=== PATIENT | female | born 1935 | race Caucasian/White ===

== ENCOUNTER 2020-01-04 13:24 | Outpatient (REF) | payer MEDICARE, SELFPAY ==
[2020-01-04 14:05] LABS: MANUAL DIFF FLAG NO
[2020-01-04 14:08] LABS: Basophils Absolute Auto 0.1 X10*3/uL (0.0-0.2); Basophils Percent Auto 0.8 % (0-2); Eosinophils Absolute Auto 0.2 X10*3/uL (0.0-0.4); Eosinophils Percent Auto 2.1 % (0-4); Hematocrit 42.9 % (37-47); Hemoglobin 14.3 g/dl (12.0-16.0); Imm Gran Abs Auto 0.02 X10*3/uL (0.00-0.03); Imm Gran Pct Auto 0.3 % (0.0-0.4); Lymphocytes Absolute Auto 3.1 X10*3/uL (1.2-4.9); Lymphocytes Percent Auto 40.7 % (20-40); Mean Corpuscular HGB Conc 33.3 g/dl (31.0-35.0); Mean Corpuscular Hemoglobin 30.2 pg (27.0-33.0); Mean Corpuscular Volume 90.5 fL (80-98); Mean Platelet Volume 9.6 fL (9.4-12.3); Monocytes Absolute Auto 0.6 X10*3/uL (0.1-1.2); Monocytes Percent Auto 7.5 % (2-11); Neutrophils Absolute Auto 3.8 X10*3/uL (2.0-8.3); Neutrophils Percent Auto 48.6 % (45-73); Platelet Count 264 X10*3/uL (160-400); Red Blood Count 4.74 X10*6/uL (4.20-5.50); Red Cell Distribution Width 12.1 % (11.0-16.0); White Blood Count 7.7 X10*3/uL (4.8-10.8)
[2020-01-04 14:39] LABS: Alanine Aminotransferase 13 U/L (0-31); Albumin Level 4.2 g/dL (3.5-5.0); Alkaline Phosphatase 76 U/L (39-117); Anion Gap 11 (12-20); Aspartate Amino Transferase 20 U/L (5-31); Bilirubin Total 0.6 mg/dL (0.0-1.0); Blood Urea Nitrogen 23 mg/dL (9-16); Calcium 9.5 mg/dL (8.4-10.2); Carbon Dioxide 31 mmol/L (22-29); Chloride 102 mmol/L (96-108); Cholesterol 192 mg/dL; Estimated Glomerular Filt Rate > 60; Glucose Fasting 105 mg/dL (60-99); HDL Cholesterol 57 mg/dL; LDL Cholesterol Calculated 99 mg/dl; Potassium 3.6 mmol/l (3.3-5.1); Sodium 140 mmol/L (135-145); Total Protein 6.9 g/dL (6.5-8.0); Triglycerides 183 mg/dL
[2020-01-04 15:03] LABS: Thyroid Stimulating Hormone 0.68 mIU/mL (0.32-4.0); Vitamin D 25-OH Total 21.5 ng/mL (>30)
[2020-01-04 15:11] LABS: Folate 6.3 ng/mL (> or = 4.0); Vitamin B12 357 pg/mL (200-900)
[2020-01-04 15:24] LABS: Estimated Average Glucose 120 mg/dL; Hemoglobin A1c % 5.8 %
[2020-01-04 15:48] LABS: T4 Thyroxine 7.6 ug/dL (4.5-12.0)
== END 2020-01-04 13:25 | disposition home or self-care (01) ==
LOC: HO.LAB 13:24
PROVIDERS: PCP Internal Medicine; Visit Provider Otolaryngology
DX: K21.9 Gastro-esophageal reflux disease without esophagitis (principal); E78.00 Pure hypercholesterolemia, unspecified; I10 Essential (primary) hypertension; R41.89 Other symptoms and signs involving cognitive functions and awareness; R05 Cough; R09.81 Nasal congestion; H91.90 Unspecified hearing loss, unspecified ear
CPT/HCPCS: 36415; 80053; 80061; 82306; 82607; 82746; 83036; 84436; 84443; 85025

== ENCOUNTER 2020-01-11 08:23 | Outpatient (REF) | payer MEDICARE, SELFPAY ==
--- NOTE | 2020-01-11 08:32 | MR_ITS ---
MRI OF THE BRAIN WITH AND WITHOUT IV CONTRAST INDICATION: Right-sided sudden hearing loss. Acoustic neuroma. COMPARISON: None available. TECHNIQUE: Multiplanar multisequence MR imaging of the brain was obtained without and following the administration of 10 ml of Gadavist without complication with dedicated IAC pulse series. FINDINGS: The inner ear structures including the cochlea, vestibules, and semicircular canals exhibit preserved CSF signal intensity with no pathologic enhancement. The vestibular aqueducts are not enlarged. Cranial nerves VII and VIII complexes are normal in morphology. No enhancing CP angle/retrocochlear lesion. There is no pathologic intracranial enhancement. There are T2 signal changes throughout the supratentorial white matter and central caron, most likely moderate chronic microangiopathy. No acute infarct on diffusion-weighted imaging. No intracranial hemorrhage on the gradient series. No hydrocephalus, extra-axial surface collection, or herniation. The midline intracranial structures are normal. Cerebellar tonsils are normally positioned. Craniocervical junction is normal. Osseous marrow signal intensity remains homogeneous. No significant soft tissue abnormality is appreciated. IMPRESSION: - No retrocochlear pathology. - Moderate chronic microangiopathy.
== END 2020-01-11 08:24 | disposition home or self-care (01) ==
LOC: HO.MRI 08:23
PROVIDERS: PCP Internal Medicine; Visit Provider Otolaryngology
DX: H91.21 Sudden idiopathic hearing loss, right ear (principal); D33.3 Benign neoplasm of cranial nerves
CPT/HCPCS: 70553

== ENCOUNTER 2020-01-17 11:49 | Outpatient (REF) | payer MEDICARE, SELFPAY ==
[2020-01-17 15:44] LABS: Glucose Urine UA NEG (NEG); Leukocyte Esterase Urine 1+ (NEG); Nitrite Urine NEG (NEG); PH 7.5 (5.0-8.0); Urine Blood NEG (NEG); Urine Ketones NEG (NEG); Urine Protein NEG (NEG-TRACE)
[2020-01-17 15:47] LABS: Appearance Urine CLOUDY; Color Urine YELLOW
[2020-01-17 16:00] LABS: Bacteria Urine 4+ /LPF; RBC Urine 0 /HPF (0); Squamous Epithelial Cell Urine 1+ /LPF
== END 2020-01-17 11:50 | disposition home or self-care (01) ==
LOC: HO.LAB 11:49
PROVIDERS: PCP Internal Medicine; Visit Provider Internal Medicine
DX: R30.0 Dysuria (principal)
CPT/HCPCS: 81001; 87086; 87088; 87186

== ENCOUNTER 2020-03-14 15:04 | Outpatient (REF) | payer MEDICARE, SELFPAY ==
--- NOTE | 2020-03-14 15:14 | MM_ITS ---
EXAMINATION: MM SCREENING DIGITAL BREAST TOMOSYNTHESIS, BILATERAL CLINICAL INFORMATION: Screening. Asymptomatic. The lifetime risk of breast cancer based on the Tyrer-Cuzick Model is 2%. COMPARISON: Mammography: 07/08/2018, 04/14/2017 TECHNIQUE: Digital breast tomosynthesis is performed in both the craniocaudal and mediolateral oblique views along with computer-aided detection (CAD). Synthesized 2D images are generated from the tomosynthesis. FINDINGS: There are scattered areas of fibroglandular density (ACR BI-RADS breast composition Category b). Breast tissue borders on predominantly fatty. Background stromal and fibroglandular densities are stable. There is no developing density or interval mass or architectural abnormality. There are some fine vascular calcifications in each breast. No significant changes. MM/MM tomosynthesis screening BI IMPRESSION: No mammographic evidence of malignancy. ASSESSMENT: BI-RADS 2: Benign RECOMMENDATION: Routine annual mammography screening. This patient's information was entered into a reminder system with a target due date for their next mammogram.
== END 2020-03-14 15:05 | disposition home or self-care (01) ==
LOC: HO.MAMMO 15:04
PROVIDERS: PCP Internal Medicine; Visit Provider Internal Medicine
DX: Z12.31 Encounter for screening mammogram for malignant neoplasm of breast (principal)
CPT/HCPCS: 77063; 77067

== ENCOUNTER 2020-04-13 09:24 | Outpatient (REF) | payer MEDICARE, SELFPAY | END 2020-04-13 09:25 | disposition home or self-care (01) | LOC: HO.HAP 09:24 | PROVIDERS: Visit Provider Internal Medicine | DX: Z46.1 Encounter for fitting and adjustment of hearing aid (principal) | CPT/HCPCS: V5266 ==

== ENCOUNTER 2020-05-23 12:35 | Outpatient (REF) | payer MEDICARE, SELFPAY ==
--- NOTE | 2020-05-23 13:51 | MHC.AU.MED ---
Medical Clearance for Hearing Instrumentation Date: 05/23/20 Patient Name: Nisreen Avery Date of : 1935 Primary Care Provider: Referring Provider: Nicola Lebron MD We have seen your patient on 05/23/20 and have determined that they are a candidate for amplification (See accompanying report). Specifically, they would benefit from: Hearing aid use in both ears There is a statute that addresses Medical Evaluation Requirements prior to fitting a patient with a hearing aid. According to [place] statute 265 CMR:6.03(1), (a) General. Except as provided in 265 CMR 6.03(1)(b), a hearing aid assistant shall not sell a hearing aid unless the prospective user has presented to the hearing aid assistant a written statement signed by a licensed physician that states that the patient's hearing loss has been medically evaluated and the patient may be considered a candidate for a hearing aid. The medical evaluation must have taken place within the preceding six months. Please note: Due to the [place] Statute referenced above, we cannot accept a signature other than that of a licensed physician. SAWMILL HAND and PA signatures cannot be accepted. I am in agreement with the above recommendation. There is no medical contraindication for hearing instrumentation. Physician Signature Date Physician Name (Printed)
--- NOTE | 2020-05-25 08:06 | MHC.AU.P13 ---
Hearing Aid Evaluation- Binaural Date of Visit: 05/23/20 Instructor Knitting Used: Not Applicable Description of Hearing: Left ear - Moderate to severe sensorineural hearing loss Right ear - Severe to profound sensorineural hearing loss. Compared to 07/2017, there has been a significant decrease in right ear hearing. Patient has been assessed by Dr. Hermosillo with imaging studies performed to rule out retrocochlear pathology Current Hearing Instrument Information: Binaural Phonak Bolero B 50-P dispensed in 2018 Additional Information: Patient has not been able to use the aids most recently dispensed. She is unable to insert these aids despite several appointments showing her how to insert and practice. Patient is experiencing a change in her cognitive function and memory. She has gone back to using her old [id number] custom Phonak Virto hearing aids; however, these aids are not powerful enough for the change in hearing experienced last year. Due to the change in hearing, as well as manipulation and cognitive difficulties, new power [id number] custom hearing aids are medically necessary to meet patient's hearing needs. Hearing Instrument Selection: Right Ear: Therapy Aide: [employer] Model: Marlon 1600 ITC-R Battery Size: Rechargeable Color: Nord Left Ear: Therapy Aide: Abraham Model: Marlon 1600 ITC-R Battery Size: Rechargeable Color: Nord Plan: Plan of Care for Hearing Instrument Fitting: Patient wishes to purchase hearing aids as prescribed Action Taken/Action Needed: Earmold Impressions Taken Prior authorization to be requested Medical Clearance to be requested from PCP/ENT Hearing Fitting to be scheduled when materials arrive Comments: When medical clearance is received will electronically send [facility] prior authorization. Diagnosis Code(s): Primary Diagnosis: H90.3 Bilateral Sensorineural Hearing Loss Services Performed: Hearing Aid Evaluation Type: HAE B: Binaural 3rd [employer] Party Ear Impression (Quantity): Earmold (Quantity): 2 Signature: Provider: Ladonna Zurita, JOSIE-A
== END 2020-05-23 12:36 | disposition home or self-care (01) ==
LOC: HO.HAP 12:35
PROVIDERS: Visit Provider Internal Medicine
DX: Z46.1 Encounter for fitting and adjustment of hearing aid (principal); H90.3 Sensorineural hearing loss, bilateral
CPT/HCPCS: 92591; 99499; V5275

== ENCOUNTER 2020-06-12 11:37 | Outpatient (REF) | payer MEDICARE, SELFPAY | END 2020-06-12 11:38 | disposition home or self-care (01) | LOC: HO.HAP 11:37 | PROVIDERS: Visit Provider Internal Medicine | DX: Z46.1 Encounter for fitting and adjustment of hearing aid (principal); H90.3 Sensorineural hearing loss, bilateral | CPT/HCPCS: 92595; V5011; V5020; V5160; V5259 ==

== ENCOUNTER 2020-06-26 09:57 | Outpatient (REF) | payer MEDICARE, SELFPAY | END 2020-06-26 09:58 | disposition home or self-care (01) | LOC: HO.HAP 09:57 | PROVIDERS: Visit Provider Internal Medicine | DX: Z13.89 Encounter for screening for other disorder (principal) ==

== ENCOUNTER 2020-07-25 12:55 | Outpatient (REF) | payer MEDICARE, SELFPAY | END 2020-07-25 12:56 | disposition home or self-care (01) | LOC: HO.HAP 12:55 | PROVIDERS: Visit Provider Internal Medicine | DX: Z13.89 Encounter for screening for other disorder (principal) ==

== ENCOUNTER 2020-08-15 07:29 | Outpatient (REF) | payer MEDICARE, SELFPAY ==
--- NOTE | ~2020-08-15 | XR_ITS ---
EXAMINATION: KNEE X-RAY CLINICAL INFORMATION: Pain COMPARISON: Previous x-ray October 2012 TECHNIQUE: 3 views of each knee FINDINGS: Right: Bone alignment is normal. No fracture or dislocation is seen. There is severe arthritis at the medial femoral tibial and patellofemoral joints with joint space narrowing and osteophyte formation. There is a small joint effusion. There is evidence of atherosclerotic disease. Left: Bone alignment is normal. No fracture or dislocation is seen. There is severe arthritis at the medial femoral tibial and patellofemoral joints with joint space narrowing and osteophyte formation. There is degenerative lateral meniscal calcification. There is a small joint effusion. There is evidence of atherosclerotic disease. XR/XR knee RT 2V IMPRESSION: Severe bilateral arthritis.
--- NOTE | ~2020-08-15 | XR_ITS ---
EXAMINATION: KNEE X-RAY CLINICAL INFORMATION: Pain COMPARISON: Previous x-ray October 2012 TECHNIQUE: 3 views of each knee FINDINGS: Right: Bone alignment is normal. No fracture or dislocation is seen. There is severe arthritis at the medial femoral tibial and patellofemoral joints with joint space narrowing and osteophyte formation. There is a small joint effusion. There is evidence of atherosclerotic disease. Left: Bone alignment is normal. No fracture or dislocation is seen. There is severe arthritis at the medial femoral tibial and patellofemoral joints with joint space narrowing and osteophyte formation. There is degenerative lateral meniscal calcification. There is a small joint effusion. There is evidence of atherosclerotic disease. XR/XR knee standing BI IMPRESSION: Severe bilateral arthritis.
--- NOTE | ~2020-08-15 | XR_ITS ---
EXAMINATION: KNEE X-RAY CLINICAL INFORMATION: Pain COMPARISON: Previous x-ray October 2012 TECHNIQUE: 3 views of each knee FINDINGS: Right: Bone alignment is normal. No fracture or dislocation is seen. There is severe arthritis at the medial femoral tibial and patellofemoral joints with joint space narrowing and osteophyte formation. There is a small joint effusion. There is evidence of atherosclerotic disease. Left: Bone alignment is normal. No fracture or dislocation is seen. There is severe arthritis at the medial femoral tibial and patellofemoral joints with joint space narrowing and osteophyte formation. There is degenerative lateral meniscal calcification. There is a small joint effusion. There is evidence of atherosclerotic disease. XR/XR knee LT 2V IMPRESSION: Severe bilateral arthritis.
== END 2020-08-15 07:30 | disposition home or self-care (01) ==
LOC: HO.HOSX 07:29
PROVIDERS: Visit Provider Orthopaedic Surgery
DX: M17.0 Bilateral primary osteoarthritis of knee (principal); M25.561 Pain in right knee; M25.562 Pain in left knee; I10 Essential (primary) hypertension; E78.1 Pure hyperglyceridemia; J44.9 Chronic obstructive pulmonary disease, unspecified; F41.8 Other specified anxiety disorders; Z88.8 Allergy status to other drugs, medicaments and biological substances; Z91.81 History of falling
CPT/HCPCS: 20610; 73560; 73565; 99202; J1040

== ENCOUNTER 2020-10-18 11:00 | Outpatient (RCR) | payer MEDICARE, SELFPAY ==
--- NOTE | 2020-09-06 13:55 | MHC.PT.EP ---
[facility] [place] Office [place] Office [place] Office [address]oudhary [address] [phone] F: [phone] F: [phone] F: [phone] F: [phone] Physical Therapy Plan of Care Date of Evaluation: Date of Surgery: NA Diagnosis: Bilateral Knee OA, Pain in B arms Assessment: Nisreen is a 84 y.o. female referred to PT for B knee OA following two recent falls. On PT examination she presents with 8/10 pain in B Knees- R>L, decreased B hip strength, decreased B knee ROM, decreased B knee strength, decreased B ankle strength, postural deviations, and gait abnormalities. She would benefit from skilled PT to address the aforementioned impairments to improve her tolerance for ADLs such as self care, dressing, walking, and stair negotiation. She is motivated for PT. PT advised her to visit 2x a week for 6 weeks but d/t transportation needs some weeks will be 1x and more weeks may be required. Frequency and Duration: The patient will be seen 2x a week for 6 weeks. Short Term Goals: 1. In 2 weeks patient will present with decreased pain levels on the numeric pain scale to help her with self care and dressing. 2. In 2 weeks, pt's balance would be assessed. Usp Goals: 1. In 5 weeks patient will improve LE MMT grade by 1 to improve her ability for walking and stair negotiation. 2. In 6 weeks patient will be independent with HEP to continue symptom management after d/c. Treatment Plan: Modalities to reduce pain, spasms and effusion. Manual therapy to restore motion and function. Therapeutic exercise to improve strength and flexibility. Neuromuscular re-education for posture and balance. Therapeutic activities to return to functional activities of daily living. Electronically signed by: Hilda Lopez PT DPT Please sign and return to therapist. Thank you for your referral.
--- NOTE | 2020-10-20 14:30 | MHC.PT.DC ---
[facility] [place] Office [place] [facility] [place] Office [address] Kathy Choudhary [address] [phone] F: [phone] F: [phone] F: [phone] F: [phone] Physical Therapy Discharge Report Diagnosis: Bilateral Knee OA, Pain in B arms Date of Surgery: NA Date of Evaluation: 09/06/20 Date of Discharge: 10/20/20 Treatments to Date: 10 Cancellations to Date: 0 No Shows to Date: 0 Discharge Status: Achieved Goals Improved Function Independent with HEP Discharge Summary: Nisreen has achieved all goals set for her and she is independent with her HEPs. She has therefore been d/c from therapy. Electronically signed by: Hilda Lopez PT DPT Please sign and return to therapist. Thank you for your referral.
== END 2020-10-20 14:30 | disposition home or self-care (01) ==
LOC: HO.PT 11:00
PROVIDERS: PCP Internal Medicine; Visit Provider Internal Medicine
DX: M17.0 Bilateral primary osteoarthritis of knee (principal); M79.601 Pain in right arm; M79.602 Pain in left arm
CPT/HCPCS: 97014; 97110; 97140; 97162; 97530

== ENCOUNTER 2020-11-15 10:58 | Outpatient (REF) | payer MEDICARE, SELFPAY | END 2020-11-15 10:59 | disposition home or self-care (01) | LOC: HO.HAP 10:58 | PROVIDERS: Visit Provider Internal Medicine | DX: Z13.89 Encounter for screening for other disorder (principal) ==

== ENCOUNTER 2020-12-11 13:27 | Outpatient (REF) | payer MEDICARE, SELFPAY ==
[2020-12-11 14:32] LABS: Appearance Urine CLOUDY; Color Urine YELLOW; Glucose Urine UA NEG (NEG); Leukocyte Esterase Urine NEG (NEG); Nitrite Urine NEG (NEG); PH 8.5 (5.0-8.0); Urine Blood NEG (NEG); Urine Ketones NEG (NEG); Urine Protein TRACE MG/DL (NEG-TRACE)
[2020-12-11 15:06] LABS: Free T4 (Free Thyroxine) 0.92 ng/dL (0.71-1.85); Thyroid Stimulating Hormone 1.11 uIU/mL (0.32-4.0); Vitamin D 25-OH Total 29.4 ng/mL (>30)
[2020-12-11 15:09] LABS: Alanine Aminotransferase 11 U/L (0-31); Albumin Level 3.9 g/dL (3.5-5.0); Alkaline Phosphatase 71 U/L (39-117); Anion Gap 13 (12-20); Aspartate Amino Transferase 17 U/L (5-31); Bilirubin Total 0.3 mg/dL (0.0-1.0); Blood Urea Nitrogen 15 mg/dL (9-16); Calcium 9.7 mg/dL (8.4-10.2); Carbon Dioxide 27 mmol/L (22-29); Chloride 106 mmol/L (96-108); Cholesterol 201 mg/dL; Estimated Glomerular Filt Rate > 60; Glucose Random 107 mg/dL (60-115); HDL Cholesterol 67 mg/dL; LDL Cholesterol Calculated 74 mg/dl; Potassium 3.7 mmol/L (3.3-5.1); Sodium 142 mmol/L (135-145); Total Protein 6.5 g/dL (6.5-8.0); Triglycerides 300 mg/dL
[2020-12-11 15:11] LABS: Carbamazepine Tegretol 3.4 mcg/mL (5.0-12.0)
[2020-12-11 15:14] LABS: Triple Phosphate Crystal Urine 2+ /LPF
[2020-12-11 15:16] LABS: Amorphous Sediment Urine 1+ /LPF; Bacteria Urine 3+ /LPF; RBC Urine 0 /HPF (0); WBC Urine 0-2 /HPF (0-4)
[2020-12-11 15:21] LABS: Estimated Average Glucose 114 mg/dL; Hemoglobin A1c % 5.6 %
[2020-12-11 15:33] LABS: Folate 12.1 ng/mL (> or = 4.0); Vitamin B12 205 pg/mL (200-900)
[2020-12-11 20:11] LABS: MANUAL DIFF FLAG NO
[2020-12-11 20:15] LABS: Basophils Percent Auto 0.5 % (0-2); Eosinophils Absolute Auto 0.1 X10*3/uL (0.0-0.4); Eosinophils Percent Auto 1.1 % (0-4); Hematocrit 43.5 % (37-47); Hemoglobin 14.6 g/dl (12.0-16.0); Imm Gran Abs Auto 0.03 X10*3/uL (0.00-0.03); Imm Gran Pct Auto 0.4 % (0.0-0.4); Lymphocytes Absolute Auto 2.8 X10*3/uL (1.2-4.9); Lymphocytes Percent Auto 35.1 % (20-40); Mean Corpuscular HGB Conc 33.6 g/dl (31.0-35.0); Mean Corpuscular Hemoglobin 30.4 pg (27.0-33.0); Mean Corpuscular Volume 90.6 fL (80-98); Mean Platelet Volume 10.4 fL (9.4-12.3); Monocytes Absolute Auto 0.6 X10*3/uL (0.1-1.2); Monocytes Percent Auto 7.2 % (2-11); Neutrophils Absolute Auto 4.4 X10*3/uL (2.0-8.3); Neutrophils Percent Auto 55.7 % (45-73); Platelet Count 278 X10*3/uL (160-400); Red Cell Distribution Width 12.9 % (11.0-16.0)
== END 2020-12-11 13:28 | disposition home or self-care (01) ==
LOC: HO.LAB 13:27
PROVIDERS: PCP Internal Medicine; Visit Provider Internal Medicine
DX: G40.909 Epilepsy, unspecified, not intractable, without status epilepticus (principal); R73.02 Impaired glucose tolerance (oral); E78.00 Pure hypercholesterolemia, unspecified; E78.1 Pure hyperglyceridemia; I10 Essential (primary) hypertension; Z79.899 Other long term (current) drug therapy
CPT/HCPCS: 36415; 80053; 80061; 80156; 81001; 82306; 82607; 82746; 83036; 84439; 84443; 85025

== ENCOUNTER 2020-12-12 12:26 | Outpatient (REF) | payer MEDICARE, SELFPAY | END 2020-12-12 12:27 | disposition home or self-care (01) | LOC: HO.HAP 12:26 | PROVIDERS: Visit Provider Internal Medicine | DX: Z13.89 Encounter for screening for other disorder (principal) ==

== ENCOUNTER 2020-12-28 08:08 | Outpatient (REF) | payer MEDICARE, SELFPAY ==
--- NOTE | 2020-12-29 09:17 | MHC.AU.AHA ---
Adult Audiological Evaluation Date of Visit: 12/28/20 Reason for Appointment: Patient reports that over the last several months, she has begun to experience constant high-pitched tinnitus that seems worse in her right ear. She is concerned there may have been a change in hearing. Previous Hearing Test Results: At this clinic on 12/01/2019: Right- Severe to profound sensorineural hearing loss. Left- Moderate to severe sensorineural hearing loss. There was a significant decrease in the right ear compared to 2018. Medical History: Medical History: Previous history of stroke and possible seizures, COPD, GERD, Arthritis Hearing Instrument History- Right Ear: Manager Net: Yazino Model: GIS Cloud 1600 ITC-R Serial Number: [id number] Battery Size: Rechargeable Repair Warranty: 07/06/2023 Dispensed By: [facility] Date of Fittin06/12/2020 Hearing Instrument History- Left Ear: Manager Net: Yazino Model: GIS Cloud 1600 ITC-R Serial Number: [id number] Battery Size: Rechargeable Warranty: 07/06/2023 Dispensed By: [facility] Date of Fittin06/12/2020 Otoscopy: Right Ear: Unremarkable Left Ear: Unremarkable Tympanometry: Tympanometry performed due to: To assess integrity of the middle ear system Right Ear: Normal Middle Ear System (Type A) Left Ear: Reduced Middle Ear Compliance (Type As) Hearing Evaluation: Transducer(s) Used: Insert Earphones Method: Conventional Audiometry Stimuli Used: Pure Tones Right Ear: Description of Hearing: Profound sensorineural hearing loss Left Ear: Description of Hearing: Moderate to severe sensorineural hearing loss Speech Recognition Threshold (SRT): Method Used: Recorded Lists Stimuli Used: Spondee Words Right Ear: 105 dBHL Left Ear: 55 dBHL Word Discrimination: Method: Recorded Lists Word Lists Used: W-22 Right Ear: 44% at 110 dBHL Left Ear: 84% at 85 dBHL Most Comfortable Level (MCL): Right Ear: 110 dBHL Left Ear: 85 dBHL Comparison: Compared to the most recent evaluation: Thresholds have decreased bilaterally. Recommendations: Audiological re-evaluation in one year. Hearing aid maintenance performed. Hearing aid programming was updated with today's results. Patient was pleased with the changes. Hearing aid maintenance/follow-up as needed. Diagnosis: Primary Diagnosis: H90.3 Bilateral Sensorineural Hearing Loss Signature: Provider: Ladonna Barragan, CCC-A
== END 2020-12-28 08:09 | disposition home or self-care (01) ==
LOC: HO.SH 08:08
PROVIDERS: Visit Provider Internal Medicine
DX: H91.90 Unspecified hearing loss, unspecified ear (principal)
CPT/HCPCS: 92557; 92567

== ENCOUNTER 2021-01-03 09:45 | Outpatient (REF) | payer MEDICARE, SELFPAY ==
--- NOTE | ~2021-01-03 | MM_ITS ---
EXAMINATION: BONE DENSITOMETRY CLINICAL INDICATION: Other specified disorders of bone density and structure. COMPARISON: This is the patient's baseline examination. TECHNIQUE: Using a [employer] DXA System (software version: 13.1) manufactured by [employer], dual-energy x-ray absorptiometry was performed of the spine and left hip. The images are of good technical quality. Summary results are attached. FINDINGS: AP SPINE L1-L4: BMD 1.119 g/cm2, Z-score 0.5, T-score -0.5, normal. LEFT FEMUR, NECK: BMD 0.761 g/cm2, Z-score -0.3, T-score -2.0, osteopenia. LEFT FEMUR, TOTAL: BMD 0.751 g/cm2, Z-score -0.5, T-score -2.0, osteopenia. IDENTIFIED RISK FACTORS: Rheumatoid arthritis, recurrent falls, height loss, history of fracture (adult), menopause, hysterectomy, right oophorectomy, thiazide. HISTORY OF FRACTURE: Wrist. MEDICATIONS: Vitamin D. MM/XR DEXA axial skeleton IMPRESSION: 1. DIAGNOSIS: Osteopenia based on the lowest T-score value of -2.0 in the femoral neck and total femur applying World Health Organization criteria. 2. 10-YEAR FRACTURE RISK PREDICTION, FRAX: Major osteoporotic fracture (clinical spine, forearm, hip or shoulder) 26.6%. Hip fracture 8.1%. 3. Treatment Recommendations: NOF guidelines recommend consideration for treatment in postmenopausal women and men age 50 and older presenting with the following: -A hip or vertebral (clinical or morphometric) fracture. -T-score less than or equal to -2.5 at the femoral neck or spine after appropriate evaluation to exclude secondary causes. -Low bone mass at the hip or spine and a 10-year fracture probability by FRAX of greater than or equal to 3% for hip fracture or greater than or equal to 20% for major osteoporotic fracture based on the [place] adapted WHO algorithm. 4. Other Recommendations: All treatment decisions require clinical judgment and consideration of individual patient factors, including patient preferences, comorbidities, previous drug use, risk factors not captured in the FRAX model (e.g. frailty, falls, vitamin D deficiency, increased bone turnover, interval significant decline in bone density) and possible under or overestimation of fracture risk by FRAX. Additional medical evaluation for secondary cause of low bone mineral density may be appropriate. FUTURE SCAN RECOMMENDATION: People with diagnosed cases of osteoporosis or at high risk for fracture should have regular bone mineral density tests. For patients eligible for Medicare, routine testing is allowed once every 2 years. The testing frequency can be increased to one year for patients who have rapidly progressing disease, those who are receiving or discontinuing medical therapy to restore bone mass, or have additional risk factors.
== END 2021-01-03 09:46 | disposition home or self-care (01) ==
LOC: HO.MAMMO 09:45
PROVIDERS: Visit Provider Internal Medicine
DX: Z13.820 Encounter for screening for osteoporosis (principal); M85.80 Other specified disorders of bone density and structure, unspecified site; M06.9 Rheumatoid arthritis, unspecified; Z78.0 Asymptomatic menopausal state; Z91.81 History of falling; Z79.899 Other long term (current) drug therapy
CPT/HCPCS: 77080

== ENCOUNTER 2021-02-20 12:56 | Outpatient (REF) | payer MEDICARE, SELFPAY ==
[2021-02-20 14:27] LABS: Appearance Urine CLOUDY; Color Urine YELLOW; Glucose Urine UA NEG (NEG); Leukocyte Esterase Urine 1+ (NEG); Nitrite Urine NEG (NEG); PH 7.5 (5.0-8.0); Specific Gravity - Urine 1.015 (1.005-1.025); UACC Culture Trigger YES; Urine Blood NEG (NEG); Urine Ketones 5 MG/DL (NEG); Urine Protein NEG (NEG-TRACE)
[2021-02-20 14:41] LABS: Bacteria Urine 2+ /LPF; RBC Urine 0 /HPF (0); Squamous Epithelial Cell Urine 1+ /LPF
== END 2021-02-20 12:57 | disposition home or self-care (01) ==
LOC: HO.LAB 12:56
PROVIDERS: PCP Internal Medicine; Visit Provider Internal Medicine
DX: R30.0 Dysuria (principal); R32 Unspecified urinary incontinence
CPT/HCPCS: 81001; 87086; 87088; 87186

== ENCOUNTER 2021-04-05 09:31 | Outpatient (REF) | payer MEDICARE, SELFPAY ==
[2021-04-05 11:46] LABS: Binax Internal Control QC Valid; Binax Now Covid-19 Ag Negative (Negative)
== END 2021-04-05 09:32 | disposition home or self-care (01) ==
LOC: HO.LAB 09:31
PROVIDERS: Visit Provider Internal Medicine
DX: Z20.822 Contact with and (suspected) exposure to COVID-19 (principal)
CPT/HCPCS: C9803

== ENCOUNTER 2021-05-03 14:03 | Outpatient (REF) | payer MEDICARE, SELFPAY ==
--- NOTE | ~2021-05-03 | MM_ITS ---
EXAMINATION: MM SCREENING DIGITAL BREAST TOMOSYNTHESIS, BILATERAL CLINICAL INFORMATION: Screening. Asymptomatic. The lifetime risk of breast cancer based on the Tyrer-Cuzick Model is 1.0%. COMPARISON: Mammography: March 14, 2020 and studies dating back to November 16, 2013 TECHNIQUE: Digital breast tomosynthesis is performed in both the craniocaudal and mediolateral oblique views along with computer-aided detection (CAD). Synthesized 2D images are generated from the tomosynthesis. FINDINGS: The breasts are almost entirely fatty (ACR BI-RADS breast composition Category a). There are no significant masses, abnormal calcifications, or other abnormalities. There is stable grouping of calcifications lateral aspect of the right breast. MM/MM tomosynthesis screening BI IMPRESSION: There are no significant changes from prior study. ASSESSMENT: BI-RADS 1: Negative RECOMMENDATION: Routine annual mammography screening. This patient's information was entered into a reminder system with a target due date for their next mammogram.
== END 2021-05-03 14:04 | disposition home or self-care (01) ==
LOC: HO.MAMMO 14:03
PROVIDERS: PCP Internal Medicine; Visit Provider Internal Medicine
DX: Z12.31 Encounter for screening mammogram for malignant neoplasm of breast (principal)
CPT/HCPCS: 77063; 77067

== ENCOUNTER 2021-06-18 12:35 | Outpatient (REF) | payer SELFPAY ==
--- NOTE | 2021-06-18 13:47 | MHC.AU.HFU ---
Hearing Instrument Follow-Up- Binaural Date of Visit: 06/18/21 Right Ear: Carbon Setter: Abraham Model: Marlon 1600 ITC-R Serial Number: [id number] Repair Warranty: 07/06/2023 Battery Size: Rechargeable Color: Cornwall Type of Wax Guard: HEAR CLEAR Dispensed By: [facility] Date of Fittin06/12/2020 Left Ear: Carbon Setter: Abraham Model: Marlon 1600 ITC-R Serial Number: [id number] Repair Warranty: 07/06/2023 Battery Size: Rechargeable Color: Cornwall Type of Wax Guard: Hear Clear Dispensed By: [facility] Date of Fittin06/12/2020 Follow-Up Summary: Patient has started wearing her old Phonak Virto V 50-312 aids as she cannot hear well with the Abraham aids. Both Abraham aid wax guards completely blocked with cerumen. Had cerumen removal on 06/14/21 and was still unable to hear using Abraham aids. Changed wax guards and both aids working again. Compared Phonak and Abraham settings, showing the Abraham aids gain is much lower than Phonak gain. Reset aids to Abraham's Best Fit and increased 1949-2505 Hz additional 5 dB with patient reporting much improved sound quality while in office. Diagnosis Code(s):Primary Diagnosis: H90.3 Bilateral Sensorineural Hearing Loss Services Performed:QUINT[place]ILLA Non-Quantity Charges: HANC: NonBillable Event Signature:Provider: Ladonna Zurita, CCC-A
== END 2021-06-18 12:36 | disposition home or self-care (01) ==
LOC: HO.HAP 12:35
PROVIDERS: Visit Provider Internal Medicine
DX: Z13.89 Encounter for screening for other disorder (principal)

== ENCOUNTER 2021-09-11 14:10 | Outpatient (REF) | payer MEDICARE, SELFPAY ==
[2021-09-11 14:20] LABS: Appearance Urine CLOUDY; Color Urine YELLOW; Glucose Urine UA NEG (NEG); Leukocyte Esterase Urine TRACE (NEG); Nitrite Urine NEG (NEG); Urine Blood NEG (NEG); Urine Ketones NEG (NEG); Urine Protein TRACE MG/DL (NEG-TRACE)
[2021-09-11 14:28] LABS: Bacteria Urine 4+ /LPF; RBC Urine 0 /HPF (0); Squamous Epithelial Cell Urine 1+ /LPF; Triple Phosphate Crystal Urine 4+ /LPF
== END 2021-09-11 14:11 | disposition home or self-care (01) ==
LOC: HO.LNP 14:10
PROVIDERS: Visit Provider Internal Medicine
DX: R32 Unspecified urinary incontinence (principal)
CPT/HCPCS: 81001; 87086

== ENCOUNTER 2021-09-13 10:36 | Emergency (ER) | payer MEDICARE, SELFPAY ==
[2021-09-13 10:43] VITALS: BP 166/97; PULSE 103; RESP 18; TEMP 36.7; O2SAT 96; BMI 31.6
[2021-09-13 11:11] LABS: Appearance Urine CLOUDY; Color Urine YELLOW; Glucose Urine UA NEG (NEG); Leukocyte Esterase Urine 1+ (NEG); Nitrite Urine NEG (NEG); UACC Culture Trigger YES; Urine Blood TRACE (NEG); Urine Ketones 5 MG/DL (NEG); Urine Protein 1+ MG/DL (NEG-TRACE)
--- NOTE | 2021-09-13 11:23 | ED_ITS ---
HPI - Female Genitourinary General Chief complaint: Urogenital-Female Stated complaint: Blatter infection , high bp Time Seen by Provider: 09/13/21 11:02 Source: patient, family and old records reviewed Mode of arrival: ambulatory Limitations: no limitations History of Present Illness HPI Narrative: 85 yo female with history of COPD, HTN, mild cognitive impairment, seizure disorder, anxiety, GERD, osteoarthritis, urinary incontinence with history of recurrent UTI's who presents to the ER from home with her daughter with concerns for worsening UTI. Over the last 2 weeks patient started getting more anxious and confused, which usually happens before she gets a UTI. She saw her PCP two days ago, she had a positive urinalysis and was given a prescription for Bactrim which she started yesterday. She has had 3 doses so far. Daughter (who she lives with) reports that the patient has been anxious and wanting to pace and walk around, which is not like her. Daughter is afraid she is going to fall. She has been slightly agitated which is also not like her. No fever or chills, nausea, vomiting or diarrhea. She has not been coughing or complaining of chest pain or SOB. MD elicited complaint: UTI Pertinent past history: recurrent UTIs Onset (ago): day(s) Severity: moderate Vaginal discharge: none Vaginal bleeding: none Urinary symptoms: Dysuria, Urgency and Frequency Exacerbating factors: none Relieving factors: none Associated symptoms: denies other symptoms Treatment prior to arrival: none Related Data Home Medications Medication Instructions Recorded Confirmed acetaminophen 500 mg tablet 1,000 mg PO Q6H PRN 02/02/20 03/12/21 (Tylenol Extra Strength) multivitamin 1 tab PO DAILY 02/02/20 03/12/21 Previous Rx's Medication Instructions Recorded mirtazapine 7.5 mg tablet 7.5 mg PO BEDTIME #30 tabs 04/06/20 nystatin 100,000 unit/gram topical 1 appl topical DAILY #60 grams 07/10/20 powder hydrochlorothiazide 25 mg tablet 25 mg PO DAILY #90 tabs 01/08/21 sennosides 8.6 mg-docusate sodium 1 tab-cap PO BID PRN constipation 02/01/21 50 mg capsule (Senna Plus) #180 caps mirabegron 25 mg tablet,extended 25 mg PO DAILY 30 days #30 tabs 02/11/21 release 24 hr (Myrbetriq) aspirin 81 mg tablet,delayed 81 mg PO DAILY #90 tabs 03/12/21 release omeprazole 20 mg capsule,delayed 20 mg PO QAM #90 caps 03/12/21 release pravastatin 20 mg tablet 20 mg PO DAILY #90 tabs 04/04/21 carbamazepine 100 mg chewable 100 mg PO DAILY #90 tabs 07/27/21 tablet celecoxib 200 mg capsule (Celebrex) 200 mg PO DAILY 90 days #90 caps 09/10/21 fluticasone propionate 50 1 spray intranasal DAILY #48 mL 09/10/21 mcg/actuation nasal spray,suspension sulfamethoxazole 800 1 tab PO BID #14 tabs 09/11/21 mg-trimethoprim 160 mg tablet (Bactrim DS) sulfamethoxazole 800 1 tab PO BID #4 tabs 09/13/21 mg-trimethoprim 160 mg tablet (Bactrim DS) cephalexin 500 mg capsule 500 mg PO Q6H uti 10 days #40 caps 09/17/21 Allergies Allergy/AdvReac Type Severity Reaction Status Date / Time lisinopril Allergy Unknown cough Verified 09/10/21 13:41 Review of Systems Review of Systems: Constitutional: No Fever, No Chills ENT/Mouth: No sore throat, No Rhinorrhea, No Swallowing Difficulty Eyes: No Eye Pain, No Swelling, No Redness Cardiovascular: No Chest Pain, No SOB, No Orthopnea, No Edema Respiratory: No Cough, No Sputum, No Wheezing, No dyspnea Gastrointestinal: No Nausea, No Vomiting, No Diarrhea, No abdominal Pain, No Hematochezia, No Melena Genitourinary: + Dysuria, + Urinary Frequency, No Hematuria Musculoskeletal: No joint pain, No Myalgias Skin: No Skin Lesions, No rash Neuro: + Weakness, No Numbness, No Dizziness, No Headache Psych: + Anxiety/Panic, No Depression Heme/Lymph: No Bruising, No Lymphadenopathy Endocrine: No Polyuria, No Polydipsia PMFSH Past Medical History Medical History (Updated 09/14/21 @ 00:02 by Fox Jones) Knee osteoarthritis TIA (transient ischemic attack) Urinary incontinence Surgical History H/O left wrist surgery H/O oophorectomy History of abdominal hysterectomy History of bilateral cataract extraction Family History Family History Father No problems noted. Mother Past heart attack Sister Diabetes Brother Prostate cancer Social History Social History Housing: House Alcohol intake: never Patient Tobacco Use Status: Never used Tobacco e-Cigarette/Vaping Use: Never Used Second Hand Smoke Exposure: No Use of substances other than those prescribed or required for medical reasons: No Advance Directives: No Advance Directives Information Provided: No Current occupational status: retired Cognitive needs: No Hearing needs: No Vision needs: No Physical Exam Vital Signs: Vital Signs: Last Vital Signs Temp 98.1 F 09/13/21 10:43 Pulse 90 09/13/21 14:05 Resp 16 09/13/21 14:05 BP 129/78 09/13/21 14:05 Pulse Ox 96 09/13/21 14:05 O2 Del Method 09/13/21 14:05 BMI result Body Mass Index 31.6 Appearance: Alert elderly female pacing around in the exam room. Oriented X3. No acute distress. Eyes: Pupils equal, round and reactive to light. ENT: Pharynx normal. Neck: Normal inspection. Neck supple. CVS: Normal heart rate and rhythm. Pulses normal. Respiratory: No respiratory distress. Breath sounds normal. Abdomen: Obese, Soft and nontender. +BS x4 Skin: Skin warm and dry. Normal skin color. Normal skin turgor. No rashes. Extremities: No lower extremity edema. Neuro/psych: Oriented X 3. No motor deficit. No sensory deficit. CN II-XII intact. Restless, but redirectable, slightly agitated. gait with a slight shuffle but is steady. normal speech. Course Course Course Narrative: 85 yo female with history of COPD, HTN, HLD, anxiety, cognitive impairment, GERD, urinary incontinence and recurrent UTIs presents to the ER with increased anxiety and behavioral changes in the setting of a UTI diagnosed 2 days ago. Slightly tachycardic on arrival and hypertensive, likely due to restlessness and agitation. She is afebrile. Her daugher reports history of similar episodes, last of which she received a dose of IV rocpehin in the ER and had substantial improvement. Will plan to repeat UA and culture, check basic labs, give IV rocephin and IVF. Anticipate d/c home once workup complete. Will also give a low dose of seroquel for hyperactive delirium. Reevaluation(s) Reevaluation #1: No leukocytosis. UA is positive for infection. Prior cultures grew pansensitive E coli. She has normal renal function and no metabolic distu rbances. At this time she is much more calm after the Seroquel. She got a dose of IV Rocephin. Spoke with her daughter at length at the bedside who is in agreement to take her home, she feels comfortable caring for her there. Her PCP gave her 5 days of oral Bactrim for treatment of her UTI, will give additional 2 days to complete a 7 day course. She will follow-up with Dr. Vences in the office. Encouraged come back to the ER if any new or worsening symptoms. Stable for DC home. MDM - Female Genitourinary Lab Data Result diagrams: 09/13/21 12:12 09/13/21 12:12 Labs: Lab Results 09/13/21 09/13/21 09/13/21 Range/Units 11:02 12:12 12:12 WBC 11.0 H (4.8-10.8) X10*3/uL RBC 4.80 (4.20-5.50) X10*6/uL Hgb 14.4 (12.0-16.0) g/dl Hct 41.9 (37.0-47.0) % MCV 87.3 (80.0-98.0) fL MCH 30.0 (27.0-33.0) pg MCHC 34.4 (31.0-35.0) g/dl RDW 12.5 (11.0-16.0) % Plt Count 278 (160-400) X10*3/uL MPV 9.3 L (9.4-12.3) fL Immature Gran % (Auto) 0.5 H (0.0-0.4) % Neut % (Auto) 75.6 H (45-73) % Lymph % (Auto) 17.1 L (20-40) % [place] % (Auto) 6.4 (2-11) % Eos % (Auto) 0.1 (0-4) % Baso % (Auto) 0.3 (0-2) % Lymph # (Auto) 1.9 (1.2-4.9) X10*3/uL [place] # (Auto) 0.7 (0.1-1.2) X10*3/uL Eos # (Auto) 0.0 (0.0-0.4) X10*3/uL Baso # (Auto) 0.0 (0.0-0.2) X10*3/uL Abs Immat Gran (auto) 0.05 H (0.00-0.03) X10*3/uL Absolute Neuts (auto) 8.3 (2.0-8.3) x10*3/uL Absolute Nucleated RBC 0.000 (0.0-0.012) X10*3/uL Nucleated RBC % (auto) 0.0 (0.0-0.2) /100WBC Sodium 139 (135-145) mmol/L Potassium 3.6 (3.3-5.1) mmol/L Chloride 104 (96-108) mmol/L Carbon Dioxide 22 (22-29) mmol/L Anion Gap 17 (12-20) BUN 20 H (9-16) mg/dL Creatinine 1.19 (0.5-1.4) mg/dL Estim Creat Clear Calc 41.6 Estimated GFR 43 Random Glucose 165 H (60-115) mg/dL Lactic Acid (0.5-2.0) mmol/L Calcium 9.9 (8.4-10.2) mg/dL Magnesium 1.7 (1.6-2.6) mg/dL Total Bilirubin 0.6 (0.0-1.0) mg/dL Direct Bilirubin 0.3 (0.0-0.5) mg/dL AST 24 D (5-31) U/L ALT 14 (0-31) U/L Alkaline Phosphatase 71 (39-117) U/L Total Protein 7.3 (6.5-8.0) g/dL Albumin 4.4 (3.5-5.0) g/dL Urine Color YELLOW Urine Appearance CLOUDY Urine pH 7.0 (5.0-8.0) Ur Specific [place] 1.010 (1.005-1.025) Urine Protein 1+ H (NEG-TRACE) MG/DL Urine Glucose (UA) NEG (NEG) MG/DL Urine Ketones 5 (NEG) MG/DL Urine Blood TRACE (NEG) Urine Nitrite NEG (NEG) Ur Leukocyte Esterase 1+ H (NEG) Urine RBC 0-2 (0) /HPF Urine WBC 10-14 H (0-4) /HPF Ur Squamous Epith Cells 2+ /LPF Triple Phos Crystals 1+ /LPF Urine Bacteria 4+ /LPF 09/13/21 Range/Units 12:12 WBC (4.8-10.8) X10*3/uL RBC (4.20-5.50) X10*6/uL Hgb (12.0-16.0) g/dl Hct (37.0-47.0) % MCV (80.0-98.0) fL MCH (27.0-33.0) pg MCHC (31.0-35.0) g/dl RDW (11.0-16.0) % Plt Count (160-400) X10*3/uL MPV (9.4-12.3) fL Immature Gran % (Auto) (0.0-0.4) % Neut % (Auto) (45-73) % Lymph % (Auto) (20-40) % [place] % (Auto) (2-11) % Eos % (Auto) (0-4) % Baso % (Auto) (0-2) % Lymph # (Auto) (1.2-4.9) X10*3/uL [place] # (Auto) (0.1-1.2) X10*3/uL Eos # (Auto) (0.0-0.4) X10*3/uL Baso # (Auto) (0.0-0.2) X10*3/uL Abs Immat Gran (auto) (0.00-0.03) X10*3/uL Absolute Neuts (auto) (2.0-8.3) x10*3/uL Absolute Nucleated RBC (0.0-0.012) X10*3/uL Nucleated RBC % (auto) (0.0-0.2) /100WBC Sodium (135-145) mmol/L Potassium (3.3-5.1) mmol/L Chloride (96-108) mmol/L Carbon Dioxide (22-29) mmol/L Anion Gap (12-20) BUN (9-16) mg/dL Creatinine (0.5-1.4) mg/dL Estim Creat Clear Calc Estimated GFR Random Glucose (60-115) mg/dL Lactic Acid 1.9 (0.5-2.0) mmol/L Calcium (8.4-10.2) mg/dL Magnesium (1.6-2.6) mg/dL Total Bilirubin (0.0-1.0) mg/dL Direct Bilirubin (0.0-0.5) mg/dL AST (5-31) U/L ALT (0-31) U/L Alkaline Phosphatase (39-117) U/L Total Protein (6.5-8.0) g/dL Albumin (3.5-5.0) g/dL Urine Color Urine Appearance Urine pH (5.0-8.0) Ur Specific [place] (1.005-1.025) Urine Protein (NEG-TRACE) MG/DL Urine Glucose (UA) (NEG) MG/DL Urine Ketones (NEG) MG/DL Urine Blood (NEG) Urine Nitrite (NEG) Ur Leukocyte Esterase (NEG) Urine RBC (0) /HPF Urine WBC (0-4) /HPF Ur Squamous Epith Cells /LPF Triple Phos Crystals /LPF Urine Bacteria /LPF Critical Care Time Critical Care Time Critical Care Time: No Discharge Plan Discharge Clinical Impression: Acute UTI, Delirium Patient Disposition: Home, Self-Care Instructions: Acute Delirium (ED), Urinary Tract Infection in Older Adults (ED) Additional Instructions: Your urine test showed infection. Other labs were unremarkable. Recommend taking the previously prescribed antibiotics for a full week. Two ad ditional days have been sent to your pharmacy. Follow-up with your primary care doctor. If you develop new or worsening symptoms call 911 or come back to the ER for further evaluation. Prescriptions: New sulfamethoxazole-trimethoprim [Bactrim DS] 800-160 mg tablet 1 tab PO BID Qty: 4 0RF cephalexin 500 mg capsule 500 mg PO Q6H 10 Days Qty: 40 0RF No Action mirtazapine 7.5 mg tablet 7.5 mg PO BEDTIME Qty: 30 5RF hydrochlorothiazide 25 mg tablet 25 mg PO DAILY Qty: 90 2RF Senna Plus 8.6-50 mg capsule 1 tab-cap PO BID PRN (Reason: constipation) Qty: 180 3RF Myrbetriq 25 mg tablet extended release 24 hr 25 mg PO DAILY 30 Days Qty: 30 2RF pravastatin 20 mg tablet 20 mg PO DAILY Qty: 90 2RF carbamazepine 100 mg tablet,chewable 100 mg PO DAILY Qty: 90 3RF sulfamethoxazole-trimethoprim [Bactrim DS] 800-160 mg tablet 1 tab PO BID Qty: 14 0RF acetaminophen [Tylenol Extra Strength] 500 mg tablet 1,000 mg PO Q6H PRN multivitamin Tablet 1 tab PO DAILY nystatin 100,000 unit/gram powder 1 appl topical DAILY Qty: 60 1RF aspirin 81 mg tablet,delayed release (DR/EC) 81 mg PO DAILY Qty: 90 3RF omeprazole 20 mg capsule,delayed release(DR/EC) 20 mg PO QAM Qty: 90 2RF celecoxib [Celebrex] 200 mg capsule 200 mg PO DAILY 90 Days Qty: 90 1RF fluticasone propionate 50 mcg/actuation spray,suspension 1 spray intranasal DAILY Qty: 48 2RF Referrals: Bernardino,Nicola Emery MD [Primary Care Provider] - (follow up UTI) Interventions: ED Discharge Assessment Last Done: 09/13/21 14:45 Discharge Date/Time: 09/13/21 14:45
[2021-09-13 11:26] LABS: Bacteria Urine 4+ /LPF; RBC Urine 0-2 /HPF (0); Squamous Epithelial Cell Urine 2+ /LPF; Triple Phosphate Crystal Urine 1+ /LPF
[2021-09-13] MEDS: QUEtiapine Fumarate 25 MG TABLET 12.5 MG PO (11:56)
[2021-09-13 12:02] VITALS: BP 145/77; PULSE 110; RESP 18; O2SAT 97
[2021-09-13] MEDS: 0.9 % Sodium Chloride 1,000 ML 999 ML IVCONT (12:14)
[2021-09-13 12:18] LABS: MANUAL DIFF FLAG NO
[2021-09-13 12:22] LABS: Basophils Percent Auto 0.3 % (0-2); Eosinophils Percent Auto 0.1 % (0-4); Hematocrit 41.9 % (37.0-47.0); Hemoglobin 14.4 g/dl (12.0-16.0); Imm Gran Abs Auto 0.05 X10*3/uL (0.00-0.03); Imm Gran Pct Auto 0.5 % (0.0-0.4); Lymphocytes Absolute Auto 1.9 X10*3/uL (1.2-4.9); Lymphocytes Percent Auto 17.1 % (20-40); Mean Corpuscular HGB Conc 34.4 g/dl (31.0-35.0); Mean Corpuscular Volume 87.3 fL (80.0-98.0); Mean Platelet Volume 9.3 fL (9.4-12.3); Monocytes Absolute Auto 0.7 X10*3/uL (0.1-1.2); Monocytes Percent Auto 6.4 % (2-11); Neutrophils Absolute Auto 8.3 x10*3/uL (2.0-8.3); Neutrophils Percent Auto 75.6 % (45-73); Platelet Count 278 X10*3/uL (160-400); Red Cell Distribution Width 12.5 % (11.0-16.0)
[2021-09-13 12:29] LABS: Lactic Acid 1.9 mmol/L (0.5-2.0)
[2021-09-13 12:35] LABS: Alanine Aminotransferase 14 U/L (0-31); Albumin Level 4.4 g/dL (3.5-5.0); Alkaline Phosphatase 71 U/L (39-117); Anion Gap 17 (12-20); Aspartate Amino Transferase 24 U/L (5-31); Bilirubin Direct 0.3 mg/dL (0.0-0.5); Bilirubin Total 0.6 mg/dL (0.0-1.0); Blood Urea Nitrogen 20 mg/dL (9-16); Calcium 9.9 mg/dL (8.4-10.2); Carbon Dioxide 22 mmol/L (22-29); Chloride 104 mmol/L (96-108); Creatinine Clr Calc Pharmacy 41.6; Estimated Glomerular Filt Rate 43; Glucose Random 165 mg/dL (60-115); Magnesium 1.7 mg/dL (1.6-2.6); Potassium 3.6 mmol/L (3.3-5.1); Sodium 139 mmol/L (135-145); Total Protein 7.3 g/dL (6.5-8.0)
[2021-09-13] MEDS: cefTRIAXone sodium 1 GM in 0.9 % Sodium Chloride 50 ML IV (13:10)
[2021-09-13 14:05] VITALS: BP 129/78; PULSE 90; RESP 16; O2SAT 96
== END 2021-09-13 14:45 | disposition home or self-care (01) ==
PROVIDERS: Physician Assistant; Emergency Provider Student in an Organized Health Care Education/Training Program; PCP Internal Medicine
DX: N39.0 Urinary tract infection, site not specified (principal); B96.20 Unspecified Escherichia coli [E. coli] as the cause of diseases classified elsewhere; R41.0 Disorientation, unspecified; I10 Essential (primary) hypertension; J44.9 Chronic obstructive pulmonary disease, unspecified; G40.909 Epilepsy, unspecified, not intractable, without status epilepticus; Z86.73 Personal history of transient ischemic attack (TIA), and cerebral infarction without residual deficits
CPT/HCPCS: 36415; 80048; 80076; 81001; 83605; 83735; 85025; 87040; 87086; 87088; 87186; 96365; 99284; J0696

== ENCOUNTER 2021-10-09 09:51 | Outpatient (REF) | payer MEDICARE, SELFPAY ==
[2021-10-09 10:02] LABS: Appearance Urine CLOUDY; Color Urine YELLOW; Glucose Urine UA NEG (NEG); Leukocyte Esterase Urine 3+ (NEG); Nitrite Urine POS (NEG); UACC Culture Trigger YES; Urine Blood 3+ (NEG); Urine Ketones NEG (NEG); Urine Protein 2+ MG/DL (NEG-TRACE)
[2021-10-09 10:18] LABS: Bacteria Urine 3+ /LPF; Squamous Epithelial Cell Urine 1+ /LPF
== END 2021-10-09 09:52 | disposition home or self-care (01) ==
LOC: HO.LNP 09:51
PROVIDERS: Visit Provider Internal Medicine
DX: R32 Unspecified urinary incontinence (principal); E55.9 Vitamin D deficiency, unspecified; E78.1 Pure hyperglyceridemia; E78.00 Pure hypercholesterolemia, unspecified
CPT/HCPCS: 81001; 81003; 87086; 87088; 87186

== ENCOUNTER 2021-10-09 12:40 | Outpatient (REF) | payer OTHER, SELFPAY ==
[2021-10-09 13:02] LABS: MANUAL DIFF FLAG NO
[2021-10-09 13:15] LABS: Basophils Percent Auto 0.3 % (0-2); Eosinophils Absolute Auto 0.1 X10*3/uL (0.0-0.4); Eosinophils Percent Auto 0.8 % (0-4); Hematocrit 40.3 % (37.0-47.0); Hemoglobin 13.6 g/dl (12.0-16.0); Imm Gran Abs Auto 0.04 X10*3/uL (0.00-0.03); Imm Gran Pct Auto 0.4 % (0.0-0.4); Lymphocytes Absolute Auto 2.9 X10*3/uL (1.2-4.9); Lymphocytes Percent Auto 29.8 % (20-40); Mean Corpuscular HGB Conc 33.7 g/dl (31.0-35.0); Mean Corpuscular Hemoglobin 30.5 pg (27.0-33.0); Mean Corpuscular Volume 90.4 fL (80.0-98.0); Mean Platelet Volume 9.2 fL (9.4-12.3); Monocytes Absolute Auto 0.7 X10*3/uL (0.1-1.2); Monocytes Percent Auto 7.2 % (2-11); Neutrophils Percent Auto 61.5 % (45-73); Platelet Count 299 X10*3/uL (160-400); Red Blood Count 4.46 X10*6/uL (4.20-5.50); Red Cell Distribution Width 12.6 % (11.0-16.0); White Blood Count 9.7 X10*3/uL (4.8-10.8)
[2021-10-09 13:39] LABS: Alanine Aminotransferase 13 U/L (0-31); Alkaline Phosphatase 77 U/L (39-117); Anion Gap 12 (12-20); Aspartate Amino Transferase 20 U/L (5-31); Bilirubin Total 0.4 mg/dL (0.0-1.0); Blood Urea Nitrogen 14 mg/dL (9-16); Calcium 9.5 mg/dL (8.4-10.2); Carbon Dioxide 27 mmol/L (22-29); Chloride 105 mmol/L (96-108); Cholesterol 194 mg/dL; Estimated Glomerular Filt Rate 56; Glucose Random 92 mg/dL (60-115); HDL Cholesterol 64 mg/dL; LDL Cholesterol Calculated 94 mg/dl; Potassium 3.8 mmol/L (3.3-5.1); Sodium 140 mmol/L (135-145); Total Protein 6.9 g/dL (6.5-8.0); Triglycerides 183 mg/dL
[2021-10-09 14:03] LABS: Free T4 (Free Thyroxine) 1.09 ng/dL (0.71-1.85); Thyroid Stimulating Hormone 0.94 uIU/mL (0.32-4.0); Vitamin D 25-OH Total 37.6 ng/mL (>30)
[2021-10-09 14:22] LABS: Folate 11.5 ng/mL (> or = 4.0); Vitamin B12 1208 pg/mL (200-900)
== END 2021-10-09 12:41 | disposition home or self-care (01) ==
LOC: HO.LAB 12:40
PROVIDERS: PCP Internal Medicine; Visit Provider Internal Medicine
DX: R32 Unspecified urinary incontinence (principal); E78.1 Pure hyperglyceridemia; E55.9 Vitamin D deficiency, unspecified; E78.00 Pure hypercholesterolemia, unspecified
CPT/HCPCS: 36415; 80053; 80061; 82306; 82607; 82746; 84439; 84443; 85025

== ENCOUNTER 2021-10-12 09:35 | Outpatient (REF) | payer OTHER, SELFPAY ==
--- NOTE | ~2021-10-12 | XR_ITS ---
EXAMINATION: XR LEFT ANKLE XR LEFT KNEE CLINICAL INFORMATION: Pain. COMPARISON: Left knee 08/15/2020 TECHNIQUE: Left knee 2 views and left ankle 3 views. FINDINGS: Left ankle: The ankle mortise and subtalar joints are normal. There is no visible acute fracture, dislocation or dislocation. There is moderate lateral malleolar soft tissue swelling. Left knee: There is moderate loss of medial and patellofemoral compartment joint space with moderate periarticular spurring. There is enthesophyte along the lateral femoral condyle likely old injury. No acute fracture, dislocation or subluxation seen. There is no abnormal joint effusion. XR/XR ankle LT 2V IMPRESSION: 1. 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 No joint effusion seen. No major change compared to previous study 08/11/2020. 2. Moderate lateral malleolar soft tissue swelling left ankle. No visible acute fracture or dislocation seen.
--- NOTE | ~2021-10-12 | XR_ITS ---
EXAMINATION: XR LEFT ANKLE XR LEFT KNEE CLINICAL INFORMATION: Pain. COMPARISON: Left knee 08/15/2020 TECHNIQUE: Left knee 2 views and left ankle 3 views. FINDINGS: Left ankle: The ankle mortise and subtalar joints are normal. There is no visible acute fracture, dislocation or dislocation. There is moderate lateral malleolar soft tissue swelling. Left knee: There is moderate loss of medial and patellofemoral compartment joint space with moderate periarticular spurring. There is enthesophyte along the lateral femoral condyle likely old injury. No acute fracture, dislocation or subluxation seen. There is no abnormal joint effusion. XR/XR knee LT 2V IMPRESSION: 1. 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 No joint effusion seen. No major change compared to previous study 08/11/2020. 2. Moderate lateral malleolar soft tissue swelling left ankle. No visible acute fracture or dislocation seen.
== END 2021-10-12 09:36 | disposition home or self-care (01) ==
LOC: HO.XRAY 09:35
PROVIDERS: PCP Internal Medicine; Visit Provider Internal Medicine
DX: M25.562 Pain in left knee (principal); M25.572 Pain in left ankle and joints of left foot
CPT/HCPCS: 73560; 73600

== ENCOUNTER 2021-10-31 12:00 | Outpatient (REF) | payer OTHER, SELFPAY ==
[2021-10-31 14:03] LABS: Appearance Urine CLEAR; Color Urine YELLOW; Glucose Urine UA NEG (NEG); Leukocyte Esterase Urine NEG (NEG); Nitrite Urine NEG (NEG); Urine Blood NEG (NEG); Urine Ketones NEG (NEG); Urine Protein NEG (NEG-TRACE)
== END 2021-10-31 12:01 | disposition home or self-care (01) ==
LOC: HO.LNP 12:00
PROVIDERS: Visit Provider Internal Medicine
DX: R32 Unspecified urinary incontinence (principal)
CPT/HCPCS: 81003

== ENCOUNTER → 2021-11-29 09:10 | Outpatient (BNVA) | payer OTHER, SELFPAY | PROVIDERS: PCP Internal Medicine; Visit Provider Orthopaedic Surgery | DX: M17.0 Bilateral primary osteoarthritis of knee (principal) | CPT/HCPCS: 20610; 99212; J1100 ==

== ENCOUNTER 2022-04-02 10:12 | Outpatient (REF) | payer OTHER, SELFPAY ==
[2022-04-02 10:42] LABS: Appearance Urine Cloudy; Color Urine Yellow; Glucose Urine UA Negative (Negative); Leukocyte Esterase Urine Trace (Negative); Nitrite Urine Negative (Negative); PH >= 9.0 (5.0-9.0); UMIC TRIGGER UACC YES; Urine Blood Negative (Negative); Urine Ketones Negative (Negative); Urine Protein 30 (1+) mg/dL (Neg-Trace)
[2022-04-02 11:17] LABS: Calcium Oxalate Crystals Urine Present; Other Crystals Urine Present
[2022-04-02 11:19] LABS: UACC Culture Trigger YES
[2022-04-02 11:20] LABS: Bacteria Urine 3+ (None Seen); Squamous Epithelial Cell Urine 0-2 /HPF (0-2)
[2022-04-02 11:21] LABS: Hyaline Casts Urine 0-2 /LPF (0-2)
== END 2022-04-02 10:13 | disposition home or self-care (01) ==
LOC: HO.LNP 10:12
PROVIDERS: Visit Provider Internal Medicine
DX: N39.0 Urinary tract infection, site not specified (principal)
CPT/HCPCS: 81001; 87086; 87088; 87186

== ENCOUNTER 2022-05-08 13:20 | Outpatient (REF) | payer OTHER, SELFPAY ==
--- NOTE | ~2022-05-08 | MM_ITS ---
EXAMINATION: MM SCREENING DIGITAL BREAST TOMOSYNTHESIS, BILATERAL CLINICAL INFORMATION: Screening. Asymptomatic. COMPARISON: Mammography: 05/03/2021, 03/14/2020, 07/08/2018 TECHNIQUE: Digital breast tomosynthesis is performed in both the craniocaudal and mediolateral oblique views along with computer-aided detection (CAD). Synthesized 2D images are generated from the tomosynthesis. Additional bilateral CC views are provided. FINDINGS: There are scattered areas of fibroglandular density (ACR BI-RADS breast composition Category b). There are no significant masses, abnormal calcifications, or other abnormalities. Breast tissue composition borders on predominantly fatty. Background stromal and fibroglandular densities are similar to prior exams. No developing density. No significant changes. MM/MM tomosynthesis screening BI IMPRESSION: No mammographic evidence of malignancy. ASSESSMENT: BI-RADS 1: Negative RECOMMENDATION: Routine annual mammography screening. This patient's information was entered into a reminder system with a target due date for their next mammogram.
== END 2022-05-08 13:21 | disposition home or self-care (01) ==
LOC: HO.MAMMO 13:20
PROVIDERS: PCP Internal Medicine; Visit Provider Internal Medicine
DX: Z12.31 Encounter for screening mammogram for malignant neoplasm of breast (principal)
CPT/HCPCS: 77063; 77067

== ENCOUNTER → 2022-07-29 10:24 | Outpatient (BNVA) | payer OTHER, SELFPAY | PROVIDERS: PCP Internal Medicine; Visit Provider Orthopaedic Surgery | DX: M17.0 Bilateral primary osteoarthritis of knee (principal) | CPT/HCPCS: 20610; 99212; J1100 ==

== ENCOUNTER 2022-10-03 13:49 | Outpatient (REF) | payer OTHER, SELFPAY ==
[2022-10-03 14:12] LABS: MANUAL DIFF FLAG NO
[2022-10-03 15:08] LABS: Basophils Absolute Auto 0.1 X10*3/uL (0.0-0.2); Basophils Percent Auto 0.6 % (0-2); Eosinophils Absolute Auto 0.1 X10*3/uL (0.0-0.4); Eosinophils Percent Auto 0.9 % (0-4); Hematocrit 43.4 % (37.0-47.0); Hemoglobin 14.7 g/dl (12.0-16.0); Imm Gran Abs Auto 0.05 X10*3/uL (0.00-0.03); Imm Gran Pct Auto 0.5 % (0.0-0.4); Lymphocytes Percent Auto 31.7 % (20-40); Mean Corpuscular HGB Conc 33.9 g/dl (31.0-35.0); Mean Corpuscular Hemoglobin 30.4 pg (27.0-33.0); Mean Corpuscular Volume 89.7 fL (80.0-98.0); Mean Platelet Volume 10.2 fL (9.4-12.3); Monocytes Absolute Auto 0.9 X10*3/uL (0.1-1.2); Monocytes Percent Auto 8.9 % (2-11); Neutrophils Absolute Auto 5.5 x10*3/uL (2.0-8.3); Neutrophils Percent Auto 57.4 % (45-73); Platelet Count 321 X10*3/uL (160-400); Red Blood Count 4.84 X10*6/uL (4.20-5.50); Red Cell Distribution Width 12.5 % (11.0-16.0); White Blood Count 9.6 X10*3/uL (4.8-10.8)
[2022-10-03 16:13] LABS: Alanine Aminotransferase 15 U/L (0-31); Albumin Level 3.9 g/dL (3.5-5.0); Alkaline Phosphatase 57 U/L (39-117); Anion Gap 16 (12-20); Aspartate Amino Transferase 23 U/L (5-31); Bilirubin Total 0.8 mg/dL (0.0-1.0); Blood Urea Nitrogen 16 mg/dL (9-16); Calcium 10.4 mg/dL (8.4-10.2); Carbon Dioxide 22 mmol/L (22-29); Chloride 108 mmol/L (96-108); Cholesterol 163 mg/dL; Estimated Glomerular Filt Rate 57; Glucose Random 143 mg/dL (60-115); HDL Cholesterol 53 mg/dL; LDL Cholesterol Calculated 75 mg/dl; Potassium 3.6 mmol/L (3.3-5.1); Sodium 142 mmol/L (135-145); Total Protein 6.7 g/dL (6.5-8.0); Triglycerides 176 mg/dL
[2022-10-03 16:33] LABS: Free T4 (Free Thyroxine) 1.03 ng/dL (0.71-1.85); Thyroid Stimulating Hormone 1.09 uIU/mL (0.32-4.0); Vitamin D 25-OH Total 44.9 ng/mL (>30)
[2022-10-03 16:47] LABS: Folate 12.1 ng/mL (> or = 4.0); Vitamin B12 550 pg/mL (200-900)
== END 2022-10-03 13:50 | disposition home or self-care (01) ==
LOC: HO.LAB 13:49
PROVIDERS: PCP Internal Medicine; Visit Provider Internal Medicine
DX: E78.00 Pure hypercholesterolemia, unspecified (principal); E78.1 Pure hyperglyceridemia; N39.0 Urinary tract infection, site not specified; I10 Essential (primary) hypertension; M85.80 Other specified disorders of bone density and structure, unspecified site; E55.9 Vitamin D deficiency, unspecified
CPT/HCPCS: 36415; 80053; 80061; 82306; 82607; 82746; 84439; 84443; 85025

== ENCOUNTER 2022-10-04 | Outpatient (REF) | payer OTHER, SELFPAY ==
[2022-10-04 14:50] LABS: Appearance Urine Cloudy; Color Urine Yellow; Glucose Urine UA Negative (Negative); Leukocyte Esterase Urine Small (1+) (Negative); Nitrite Urine Positive (Negative); Specific Gravity - Urine 1.015 (1.005-1.025); UMIC TRIGGER UACC YES; Urine Blood Negative (Negative); Urine Ketones Negative (Negative); Urine Protein Negative (Neg-Trace)
[2022-10-04 14:56] LABS: Bacteria Urine 4+ (None Seen); Hyaline Casts Urine 0-2 /LPF (0-2); UACC Culture Trigger YES
== END 2022-10-04 00:01 | disposition home or self-care (01) ==
LOC: HO.LNP
PROVIDERS: Visit Provider Internal Medicine
DX: Z13.89 Encounter for screening for other disorder (principal)
CPT/HCPCS: 81001; 87086

== ENCOUNTER 2022-10-07 15:59 | Outpatient (REF) | payer OTHER, SELFPAY ==
[2022-10-07 16:13] LABS: Appearance Urine Cloudy; Color Urine Yellow; Glucose Urine UA Negative (Negative); Leukocyte Esterase Urine Trace (Negative); Nitrite Urine Positive (Negative); UMIC TRIGGER UACC YES; Urine Blood Negative (Negative); Urine Ketones Negative (Negative); Urine Protein Negative (Neg-Trace)
[2022-10-07 16:26] LABS: Bacteria Urine 4+ (None Seen); Hyaline Casts Urine 0-2 /LPF (0-2); UACC Culture Trigger YES
== END 2022-10-07 16:00 | disposition home or self-care (01) ==
LOC: HO.LNP 15:59
PROVIDERS: Visit Provider Internal Medicine
DX: Z13.89 Encounter for screening for other disorder (principal)
CPT/HCPCS: 81001; 87086

== ENCOUNTER 2022-10-08 10:48 | Outpatient (AMB) | payer OTHER, SELFPAY ==
[2022-10-08 10:51] VITALS: BP 128/76; PULSE 84; O2SAT 94; BMI 31.2
--- NOTE | 2022-10-08 10:51 | A.OFFPC_ITS ---
Vital Signs 10/08/22 10:51 Height 5 ft 7 in Weight 199 lb BMI 31.2 BP 128/76 Blood Pressure Location Lt brachial Position Sitting Pulse 84 Pulse Source Pulse Oximeter Pulse Oximetry (%) 94 Oxygen Delivery Method Room Air Intake Visit Reasons: 6m F/U GERD, HTN Allergies lisinopril Allergy (Unknown, Verified 04/16/22 13:53) cough Medication List - Last Reconciled 10/08/22 by Nicola Lebron MD acetaminophen (Tylenol Extra Strength) 1,000 mg PO Q6H PRN aspirin 81 mg PO DAILY celecoxib (Celebrex) 200 mg PO DAILY 90 days fluticasone propionate 50 mcg/actuation 1 spray intranasal DAILY hydrochlorothiazide 25 mg PO DAILY mirtazapine 7.5 mg PO BEDTIME multivitamin 1 tab PO DAILY nystatin 1 appl topical DAILY omeprazole 20 mg PO QAM pravastatin 20 mg PO DAILY [reclining lift chair. As directed] sennosides-docusate sodium 8.6-50 mg (Senna Plus) 1 tab-cap PO BID PRN Tobacco use date assessed: 04/16/22 Fall risk assessment: No Falls in past year Last assessed Fall Risk: 10/08/22 Dental Screening Dental Screen Date: 10/08/22 Did you have a dental visit in the last 12 months?: Yes Did you have a dental problem in the last 6 months where you did not have access to dental care?: No Was dental information given to patient?: Patient has dentist HPI 6m F/U GERD, HTN HPI Details 87-year-old obese female with a history of seizure disorder GERD COPD hypertension impaired glucose tolerance hypercholesterolemia knee osteoarthritis coming in for follow-up. Patient was last seen in March 2022. Blood work was requested mammograms is up-to-date. Review of the notes has seen orthopedics in July 2022 for the bilateral primary osteoarthritis of the knee had injection done bilaterally patient is not a surgical candidate [facility] Medical History (Updated 10/08/22 @ 11:02 by Nicola Lebron MD) Bilateral arm pain COPD (chronic obstructive pulmonary disease) GERD (gastroesophageal reflux disease) Hypertension Hypertriglyceridemia Impaired glucose tolerance Knee osteoarthritis Obesity (BMI 30-39.9) Osteoarthritis of knees, bilateral Seizure disorder TIA (transient ischemic attack) Urinary incontinence UTI (urinary tract infection) Vitamin D deficiency Surgical History H/O left wrist surgery H/O oophorectomy History of abdominal hysterectomy History of bilateral cataract extraction Family History (Updated 10/08/22 @ 10:53 by Emily Woodruff [facility]) Father No problems noted. Mother Past heart attack Sister Diabetes Brother Prostate cancer Social History Housing: House Alcohol intake: never Patient Tobacco Use Status: Never used Tobacco e-Cigarette/Vaping Use: Never Used Second Hand Smoke Exposure: No Current occupational status: retired Cognitive needs: Yes (cane) Hearing needs: No Vision needs: Yes (glasses) Questionnaire PHQ-9 Over the last 2 weeks, how often have you been bothered by any of the following problems? 1. Little interest or pleasure in doing things: not at all 2. Feeling down, depressed, or hopeless: not at all 3. Trouble falling or staying asleep, or sleeping too much: not at all 4. Feeling tired or having little energy: not at all 5. Poor appetite or overeating: not at all 6. Feeling bad about yourself - or that you are a failure or have let yourself or your family down: not at all 7. Trouble concentrating on things, such as reading the newspaper or watching television: not at all 8. Moving or speaking so slowly that other people could have noticed. Or the opposite - being so fidgety or restless that you have been moving around a lot more than usual: not at all 9. Thoughts that you would be better off or of hurting yourself in some way: not at all Total score: 0 Depression Screening Interpretation: Negative Source: Developed by Drs. Gabriel Jiménez, Krupa Paez, Jesus Quintana and colleagues, with an educational akila from [employer]. Thrive Questionnaire Date Thrive assessed: 04/16/22 AUDIT C Alcohol Use Questionnaire (AUDIT-C) 1. How often do you have a drink containing alcohol?: Never 2. How many drinks containing alcohol do you have on a typical day when you are drinking?: 1 or 2 (0) 3. How often do you have six or more drinks on one occasion?: Never Total Score: 0 RUBINA-7 AMB Questionnaire RUBINA-7 Date RUBINA - 7 assessed: 04/16/22 Source: Developed by DrsJorge Jiménez, Krupa Paez, Jesus Quintana and colleagues, with an educational akila from [employer]. Physical exam (Primary Care) Vital Signs: Last Vital Signs Pulse 84 10/08/22 10:51 BP 128/76 10/08/22 10:51 Pulse Ox 94 10/08/22 10:51 Oxygen Delivery Method Room Air 10/08/22 10:51 BMI result Body Mass Index 31.2 Tobacco/Smoking Status: Tobacco use Status Tobacco use date assessed 04/16/22 10/08/22 10:51 Patient Tobacco Use Status Never used Tobacco 10/08/22 10:51 e-Cigarette/Vaping Use Never Used 10/08/22 10:51 PHQ-9: PHQ-9 Score PHQ-9: Total score 0 10/08/22 11:01 Depression Screening Interpretation: Negative Thrive Assessment: Date of Thrive Assessment Date Thrive assessed 04/16/22 10/08/22 10:51 Const General: alert; No acute distress Eyes Conjunctivae: conjunctivae normal Resp Auscultation: clear to auscultation bilaterally Cardio Rate: regular rate Rhythm: regular rhythm GI Inspection: Yes normal to inspection Extrem General: Yes normal to inspection and No edema Results AMB Hemoglobin A1c AMB Hemoglobin A1c 6.1 % Last Edit by Emily Woodruff CMA on 10/08/22 11 :13 Assessment and Plan Assessment & Plan (1) Knee osteoarthritis: Comment: Bilateral Code(s): M17.10 - Unilateral primary osteoarthritis, unspecified knee Plan: Patient saw the Orthopedics in July 2022 and had injections done (2) Osteopenia: Comment: December 2020 Code(s): M85.80 - Other specified disorders of bone density and structure, unspecified site Plan: Will repeat bone density in December (3) Hypertension: Code(s): I10 - Essential (primary) hypertension Qualifiers: Hypertension type: essential hypertension Qualified Code(s): I10 - Essential (primary) hypertension Plan: Continue with blood pressure medication. Decrease salt intake and exercise patient on hydrochlorothiazide only (4) Hypertriglyceridemia: Code(s): E78.1 - Pure hyperglyceridemia Plan: Avoid fried foods, chicken skin, eggs, butter margarine, pastries and meat. Be it pork or beef they have a lot of cholesterol triglyceride of less than 150 (5) Impaired glucose tolerance: Code(s): R73.02 - Impaired glucose tolerance (oral) Plan: Decrease the amount of carbohydrate intake, pasta, bread, rice and potatoes are all sugar and that is aside from all the sweet stuff, remember that fruits are good but they are Sweet also. Last years hemoglobin A1c was 5 point (6) Obesity (BMI 30-39.9): Code(s): E66.9 - Obesity, unspecified Plan: Diet and exercise (7) COPD (chronic obstructive pulmonary disease): Code(s): J44.9 - Chronic obstructive pulmonary disease, unspecified Qualifiers: COPD type: emphysema Emphysema type: unspecified Qualified Code(s): J43.9 - Emphysema, unspecified Plan: Stable (8) GERD (gastroesophageal reflux disease): Code(s): K21.9 - Gastro-esophageal reflux disease without esophagitis Qualifiers: Esophagitis presence: without esophagitis Qualified Code(s): K21.9 - Gastro-esophageal reflux disease without esophagitis Plan: Avoid the foods that causes that usually spicy foods, tomato products, juices, coffee, soda and foods that your sensitive to. After eating do not lie down, allow 3-4 hours before in lie down. And keep the head of bed above 30 degrees to avoid the acid from going up. (9) Seizure disorder: Code(s): G40.909 - Epilepsy, unspecified, not intractable, without status epilepticus Plan: Continue to monitor (10) Hypercalcemia: Code(s): E83.52 - Hypercalcemia Plan: Will have to repeat and check for parathyroid Orders: Orders Calcium Today E83.52 - Hypercalcemia Calcium, Ionized Today E83.52 - Hypercalcemia PTHI Today E83.52 - Hypercalcemia AMB Hemoglobin A1c Today Z13.9 - Encounter for screening, unspecified Comprehensive Met. Panel 6 Months E83.52 - Hypercalcemia Hemoglobin A1c 6 Months E83.52 - Hypercalcemia Lipid Panel 6 Months E78.00 - Pure hypercholesterolemia, unspecified, E83.52 - Hypercalcemia Free T4 (Free Thyroxine) 6 Months E83.52 - Hypercalcemia Thyroid Stimulating Hormone 6 Months E83.52 - Hypercalcemia Complete Blood Count Auto Diff 6 Months E83.52 - Hypercalcemia Coding Level of Care Code Est Pt Level 4 (50935) Diagnoses Knee osteoarthritis M17.10 Osteopenia M85.80 Hypertension I10 Hypertension type: essential hypertension Hypertriglyceridemia E78.1 Impaired glucose tolerance R73.02 Obesity (BMI 30-39.9) E66.9 COPD (chronic obstructive pulmonary disease) J43.9 COPD type: emphysema Emphysema type: unspecified GERD (gastroesophageal reflux disease) K21.9 Esophagitis presence: without esophagitis Seizure disorder G40.909 Hypercalcemia E83.52
== END 2022-10-08 11:28 | disposition home or self-care (01) ==
PROVIDERS: Visit Provider Internal Medicine
DX: I10 Essential (primary) hypertension (principal); J43.9 Emphysema, unspecified; K21.9 Gastro-esophageal reflux disease without esophagitis; G40.909 Epilepsy, unspecified, not intractable, without status epilepticus; E83.52 Hypercalcemia; E78.1 Pure hyperglyceridemia; M17.10 Unilateral primary osteoarthritis, unspecified knee; M85.80 Other specified disorders of bone density and structure, unspecified site; R73.02 Impaired glucose tolerance (oral); E66.9 Obesity, unspecified; Z13.9 Encounter for screening, unspecified
CPT/HCPCS: 83036; 99214

== ENCOUNTER 2022-10-10 09:16 | Outpatient (AMB) | payer OTHER, SELFPAY ==
[2022-10-10 09:40] VITALS: BMI 31.2
--- NOTE | 2022-10-10 09:40 | MHC.OFFVIS ---
Intake Vital Signs 10/10/22 09:40 Height 5 ft 7 in Weight 199 lb BMI 31.2 Intake Visit Reasons: OV - Bilateral Knee Durolane Injection Intake Note: Nisreen is an 87 year old female who presents today for bilateral knee durolane injections Allergies lisinopril Allergy (Unknown, Verified 10/10/22 09:40) cough HPI OV - Bilateral Knee Durolane Injection HPI Details Nisreen is an 86 year old woman with bilateral knee OA. She is accompanied by her daughter today, and presents for bilateral Durolane injections. She complains of pain with daily activity, worse with walking, using stairs, or climbing in/out of a car. She walks with a cane, and a shuffling gait.? She has a hx of steroid injections, with some relief, but says her most recent from 07/29/22 were not as effective as they were before. She takes Celebrex only due to GI issues.? [facility] Medical History (Updated 10/08/22 @ 11:02 by Nicola Lebron MD) Bilateral arm pain COPD (chronic obstructive pulmonary disease) GERD (gastroesophageal reflux disease) Hypertension Hypertriglyceridemia Impaired glucose tolerance Knee osteoarthritis Obesity (BMI 30-39.9) Osteoarthritis of knees, bilateral Seizure disorder TIA (transient ischemic attack) Urinary incontinence UTI (urinary tract infection) Vitamin D deficiency Surgical History H/O left wrist surgery H/O oophorectomy History of abdominal hysterectomy History of bilateral cataract extraction Family History (Updated 10/08/22 @ 10:53 by Emily Woodruff CMA) Father No problems noted. Mother Past heart attack Sister Diabetes Brother Prostate cancer Social History Housing: House Alcohol intake: never Patient Tobacco Use Status: Never used Tobacco e-Cigarette/Vaping Use: Never Used Second Hand Smoke Exposure: No Current occupational status: retired Cognitive needs: Yes (cane) Hearing needs: No Vision needs: Yes (glasses) Review of Systems Const All systems reviewed & are unremarkable except as noted in HPI and below Physical Exam Vital Signs: BMI result Body Mass Index 31.2 Const General: no acute distress and alert Orientation/consciousness: patient oriented x3 Neuro General: patient oriented x3 Extrem Other: Bilateral Knees: TTP medial joint line Skin C/D/I No effusion Psych Appearance: grossly normal Affect: normal affect Attitude: cooperative Office Procedures Joint Injection/Drain Joint Injection/Drain Details: Bilateral durolane. Site was prepped using aseptic technique. Patient tolerated the procedure well. Primary Site: right knee Secondary Site: left knee Approach Used: anterolateral Coding 00238 - Large joint 35586 - Glenohumeral/Tronchanteric Bursa/Intraarticular Procedure code (CPT) selection complete Results Reviewed Results Reviewed: 10/10/22 09:31 Hyaluronate Sodium, Stabilized [Durolane] 60 mg INTRAARTIC [facility] Assessment & Plan Assessment & Plan (1) Osteoarthritis of knees, bilateral: Code(s): M17.0 - Bilateral primary osteoarthritis of knee Qualifiers: Osteoarthritis type: primary Qualified Code(s): M17.0 - Bilateral primary osteoarthritis of knee Plan: 86 year old woman with severe bilateral knee OA, L>R. She was last injected bilaterally on 07/29/22, with mild relief, and presents today or bilateral Durolane injections. I injected her bilateral knees today with viscosupplementation, which she tolerated well. She can follow up prn. Plan Scribed for Henrry Alvarez MD by Rahul Mancia, medical insurance claims specialist, on [ ] at [ ], EST. Coding Level of Care Code Est Pt Level 2 (25114) Diagnoses Osteoarthritis of knees, bilateral M17.0 Osteoarthritis type: primary CPT Codes Coding - 67352 Large joint: 22620 - Large joint ([id number]) Coding - Joint 7: - Glenohumeral/Tronchanteric Bursa/Intraarticular ([id number])
== END 2022-10-10 10:06 | disposition home or self-care (01) ==
PROVIDERS: Visit Provider Orthopaedic Surgery
DX: M17.0 Bilateral primary osteoarthritis of knee (principal)
CPT/HCPCS: 20610; 99213

== ENCOUNTER → 2022-10-10 09:16 | Outpatient (BNVA) | payer OTHER, SELFPAY | PROVIDERS: Visit Provider Orthopaedic Surgery | DX: M17.0 Bilateral primary osteoarthritis of knee (principal) | CPT/HCPCS: 20610; J7318 ==

== ENCOUNTER 2023-04-10 09:43 | Outpatient (AMB) | payer OTHER, SELFPAY ==
[2023-04-10 09:54] VITALS: BP 112/72; PULSE 87; O2SAT 94; BMI 30.4
--- NOTE | 2023-04-10 09:54 | A.OFFPC_ITS ---
Vital Signs 04/10/23 09:54 Height 5 ft 7 in Weight 194 lb BMI 30.4 BP 112/72 Blood Pressure Location Lt brachial Position Sitting Pulse 87 Pulse Source Pulse Oximeter Pulse Oximetry (%) 94 Oxygen Delivery Method Room Air Intake Visit Reasons: Hypercholesterolemia Logger Required: No Allergies lisinopril Allergy (Unknown, Verified 04/10/23 09:55) cough Medication List - Last Reconciled 04/10/23 by Nicola Lebron MD acetaminophen (Tylenol Extra Strength) 1,000 mg PO Q6H PRN aspirin 81 mg PO DAILY celecoxib (Celebrex) 200 mg PO DAILY 90 days fluticasone propionate 50 mcg/actuation 1 spray intranasal DAILY hydrochlorothiazide 25 mg PO DAILY mirtazapine 7.5 mg PO BEDTIME multivitamin 1 tab PO DAILY nystatin 1 appl topical DAILY omeprazole 20 mg PO QAM pravastatin 20 mg PO DAILY [reclining lift chair. As directed] sennosides-docusate sodium 8.6-50 mg (Senna Plus) 1 tab-cap PO BID PRN Tobacco use date assessed: 04/10/23 Fall risk assessment: No Falls in past year Last assessed Fall Risk: 04/10/23 Dental Screening Dental Screen Date: 04/10/23 HPI Hypercholesterolemia HPI Details [age] Year old 87 obese female with osteoarthritis of the knee hypertension hypercholesterolemia impaired glucose tolerance COPD GERD history of seizures coming in for follow-up. Last seen in September 2022 mammogram is up-to-date patient has met with Orthopedics in September 2022 for the knee injections [facility] Medical History (Updated 04/10/23 @ 10:50 by Nicola Lebron MD) Bilateral arm pain Osteoarthritis of knees, bilateral TIA (transient ischemic attack) Seizure disorder Knee osteoarthritis Urinary incontinence GERD (gastroesophageal reflux disease) COPD (chronic obstructive pulmonary disease) Obesity (BMI 30-39.9) Hypertension UTI (urinary tract infection) Hypertriglyceridemia Impaired glucose tolerance Vitamin D deficiency Surgical History H/O oophorectomy History of abdominal hysterectomy History of bilateral cataract extraction H/O left wrist surgery Family History (Updated 10/08/22 @ 10:53 by Emily Woodruff CMA) Father No problems noted. Mother Past heart attack Sister Diabetes Brother Prostate cancer Social History Housing: House Alcohol intake: never Patient Tobacco Use Status: Never used Tobacco e-Cigarette/Vaping Use: Never Used Second Hand Smoke Exposure: No Current occupational status: retired Cognitive needs: Yes (cane) Hearing needs: No Vision needs: Yes (glasses) Questionnaire PHQ-9 Over the last 2 weeks, how often have you been bothered by any of the following problems? 1. Little interest or pleasure in doing things: not at all 2. Feeling down, depressed, or hopeless: not at all 3. Trouble falling or staying asleep, or sleeping too much: not at all 4. Feeling tired or having little energy: not at all 5. Poor appetite or overeating: not at all 6. Feeling bad about yourself - or that you are a failure or have let yourself or your family down: not at all 7. Trouble concentrating on things, such as reading the newspaper or watching television: not at all 8. Moving or speaking so slowly that other people could have noticed. Or the opposite - being so fidgety or restless that you have been moving around a lot more than usual: not at all 9. Thoughts that you would be better off or of hurting yourself in some way: not at all Total score: 0 Depression Screening Interpretation: Negative Depression Screening Done: Yes Source: Developed by Drs. Gabriel Jiménez, Krupa Paez, Jesus Quintana and colleagues, with an educational akila from [employer]. Thrive Questionnaire Date Thrive assessed: 04/10/23 AUDIT C Alcohol Use Questionnaire (AUDIT-C) 1. How often do you have a drink containing alcohol?: Never 2. How many drinks containing alcohol do you have on a typical day when you are drinking?: 1 or 2 (0) 3. How often do you have six or more drinks on one occasion?: Never Total Score: 0 RUBINA-7 AMB Questionnaire RUBINA-7 Date RUBINA - 7 assessed: 04/10/23 Feeling nervous, anxious, or on edge: 0 = Not at all Not being able to stop or control worryin = Not at all Worrying too much about different things: 0 = Not at all Trouble relaxin = Not at all Being so restless that it is hard to sit still: 0 = Not at all Becoming easily annoyed or irritable: 0 = Not at all Feeling afraid as if something awful might happen: 0 = Not at all Total RUBINA-7 score (0-4 normal; 5-9 mild; 10-14 moderate; 15-21 severe): 0 Source: Developed by Drs. Gabriel Jiménez, Krupa Paez, Jesus Quintana and colleagues, with an educational akila from [employer]. Physical exam (Primary Care) Vital Signs: Last Vital Signs Pulse 87 04/10/23 09:54 BP 112/72 04/10/23 09:54 Pulse Ox 94 04/10/23 09:54 Oxygen Delivery Method Room Air 04/10/23 09:54 BMI result Body Mass Index 30.4 Tobacco/Smoking Status: Tobacco use Status Tobacco use date assessed 04/10/23 04/10/23 09:59 Patient Tobacco Use Status Never used Tobacco 04/10/23 09:59 e-Cigarette/Vaping Use Never Used 04/10/23 09:59 PHQ-9: PHQ-9 Score PHQ-9: Total score 0 04/10/23 10:07 Depression Screening Interpretation: Negative Thrive Assessment: Date of Thrive Assessment Date Thrive assessed 04/10/23 04/10/23 09:59 Const General: alert; No acute distress Eyes Conjunctivae: conjunctivae normal Resp Auscultation: clear to auscultation bilaterally Cardio Rate: regular rate Rhythm: regular rhythm GI Inspection: Yes normal to inspection Extrem General: Yes normal to inspection and No edema Assessment and Plan Assessment & Plan (1) Knee osteoarthritis: Comment: Bilateral Code(s): M17.10 - Unilateral primary osteoarthritis, unspecified knee Plan: Patient has met with Orthopedics and had injections done October 2022 but the patient continues to have some pain and so will meet with orthopedics (2) Obesity (BMI 30-39.9): Code(s): E66.9 - Obesity, unspecified Plan: Noted weight loss. Continue with diet and exercise (3) Hypertension: Code(s): I10 - Essential (primary) hypertension Qualifiers: Hypertension type: essential hypertension Qualified Code(s): I10 - Essential (primary) hypertension Plan: Continue with blood pressure medication. Decrease salt intake and exercise patient takes hydrochlorothiazide 25 mg once a day (4) Hypertriglyceridemia: Code(s): E78.1 - Pure hyperglyceridemia Plan: Avoid fried foods, chicken skin, eggs, butter margarine, pastries and meat. Be it pork or beef they have a lot of cholesterol LDL goal of less than 130 and triglyceride of less than 150 presently on pravastatin (5) Impaired glucose tolerance: Code(s): R73.02 - Impaired glucose tolerance (oral) Plan: Decrease the amount of carbohydrate intake, pasta, bread, rice and potatoes are all sugar and that is aside from all the sweet stuff, remember that fruits are good but they are Sweet also. Reminded about the blood work requested (6) Generalized anxiety disorder: Code(s): F41.1 - Generalized anxiety disorder Plan: Continue with present medication (7) Urinary incontinence: Code(s): R32 - Unspecified urinary incontinence Plan: Urinalysis requested. Did discussed about the option of getting urology Orders: Orders UA CC w/rflx Micro + Cult Today R30.0 - Dysuria, R32 - Unspecified urinary incontinence Medications: New [EASY RISE WALKER] As directed 1 ea 0RF M17.10 - Unilateral primary osteoarthritis, unspecified knee [BATH AND SHOWER STEP WITH HANDLE] As directed 1 ea 0RF M17.10 - Unilateral primary osteoarthritis, unspecified knee Refilled mirtazapine 7.5 mg PO BEDTIME 30 tabs 5RF R41.89 - Other symptoms and signs involving cognitive functions and awareness Coding Level of Care Code Est Pt Level 4 (38221) Diagnoses Knee osteoarthritis M17.10 Obesity (BMI 30-39.9) E66.9 Essential hypertension I10 Hypertension type: essential hypertension Hypertriglyceridemia E78.1 Impaired glucose tolerance R73.02 Generalized anxiety disorder F41.1 Urinary incontinence R32
== END 2023-04-10 11:01 | disposition home or self-care (01) ==
PROVIDERS: PCP Internal Medicine; Visit Provider Internal Medicine
DX: M17.10 Unilateral primary osteoarthritis, unspecified knee (principal); Z68.30 Body mass index [BMI] 30.0-30.9, adult; E66.9 Obesity, unspecified; I10 Essential (primary) hypertension; E78.1 Pure hyperglyceridemia; R73.02 Impaired glucose tolerance (oral); F41.1 Generalized anxiety disorder; R32 Unspecified urinary incontinence
CPT/HCPCS: 99214

== ENCOUNTER 2023-04-14 10:24 | Outpatient (REF) | payer OTHER, SELFPAY ==
[2023-04-14 10:47] LABS: MANUAL DIFF FLAG NO
[2023-04-14 11:08] LABS: Basophils Absolute Auto 0.1 X10*3/uL (0.0-0.2); Basophils Percent Auto 0.7 % (0-2); Eosinophils Absolute Auto 0.2 X10*3/uL (0.0-0.4); Eosinophils Percent Auto 2.1 % (0-4); Hematocrit 44.1 % (37.0-47.0); Hemoglobin 14.9 g/dl (12.0-16.0); Imm Gran Abs Auto 0.03 X10*3/uL (0.00-0.03); Imm Gran Pct Auto 0.4 % (0.0-0.4); Lymphocytes Absolute Auto 2.8 X10*3/uL (1.2-4.9); Lymphocytes Percent Auto 33.7 % (20-40); Mean Corpuscular HGB Conc 33.8 g/dl (31.0-35.0); Mean Corpuscular Hemoglobin 29.8 pg (27.0-33.0); Mean Corpuscular Volume 88.2 fL (80.0-98.0); Mean Platelet Volume 9.6 fL (9.4-12.3); Monocytes Absolute Auto 0.7 X10*3/uL (0.1-1.2); Monocytes Percent Auto 8.1 % (2-11); Neutrophils Absolute Auto 4.5 x10*3/uL (2.0-8.3); Platelet Count 280 X10*3/uL (160-400); White Blood Count 8.3 X10*3/uL (4.8-10.8)
[2023-04-14 11:27] LABS: Estimated Average Glucose 117 mg/dL; Hemoglobin A1c % 5.7 % (<6.0)
[2023-04-14 12:00] LABS: Alanine Aminotransferase 15 U/L (0-31); Albumin Level 3.9 g/dL (3.5-5.0); Alkaline Phosphatase 65 U/L (39-117); Anion Gap 10 (12-20); Aspartate Amino Transferase 24 U/L (5-31); Bilirubin Total 0.7 mg/dL (0.0-1.0); Blood Urea Nitrogen 19 mg/dL (9-16); Calcium 9.7 mg/dL (8.4-10.2); Carbon Dioxide 28 mmol/L (22-29); Chloride 105 mmol/L (96-108); Cholesterol 170 mg/dL (<200); Estimated Glomerular Filt Rate 55; Glucose Random 136 mg/dL (60-115); HDL Cholesterol 56 mg/dL (>40); LDL Cholesterol Calculated 84 mg/dL (<100); Potassium 3.3 mmol/L (3.3-5.1); Sodium 140 mmol/L (135-145); Total Protein 6.9 g/dL (6.5-8.0); Triglycerides 152 mg/dL (<150)
[2023-04-14 12:21] LABS: Free T4 (Free Thyroxine) 0.97 ng/dL (0.71-1.85)
[2023-04-14 12:53] LABS: Appearance Urine Turbid; Color Urine Yellow; Glucose Urine UA Negative (Negative); Leukocyte Esterase Urine Moderate (2+) (Negative); Nitrite Urine Negative (Negative); PH >= 9.0 (5.0-9.0); Specific Gravity - Urine 1.015 (1.005-1.025); UMIC TRIGGER UACC YES; Urine Blood Negative (Negative); Urine Ketones Negative (Negative); Urine Protein 30 (1+) mg/dL (Neg-Trace)
[2023-04-14 13:11] LABS: Bacteria Urine 4+ (None Seen); Hyaline Casts Urine 0-2 /LPF (0-2); Other Crystals Urine Present; RBC Urine 0-2 /HPF (0-2); UACC Culture Trigger YES; WBC Urine >50 /HPF (0-5)
[2023-04-15 14:24] LABS: Calcium, Ionized 5.2 mg/dL (4.7-5.5)
== END 2023-04-14 10:25 | disposition home or self-care (01) ==
LOC: HO.LAB 10:24
PROVIDERS: PCP Internal Medicine; Visit Provider Internal Medicine
DX: E83.52 Hypercalcemia (principal); E78.00 Pure hypercholesterolemia, unspecified; N39.0 Urinary tract infection, site not specified; R30.0 Dysuria; R32 Unspecified urinary incontinence
CPT/HCPCS: 36415; 80053; 80061; 81001; 82330; 83036; 84439; 84443; 85025; 87086

== ENCOUNTER 2023-04-21 12:53 | Outpatient (AMB) | payer OTHER, SELFPAY ==
--- NOTE | 2023-04-21 12:53 | MHC.OFFVIS ---
Intake Vital Signs 04/21/23 12:55 Height 5 ft 7 in Weight 194 lb BMI 30.4 Intake Visit Reasons: Gel Injection Follow Up Intake Note: Nisreen is an 87 year old female who presents today VIA telephone with daughter Cecelia for a follow up of her bilateral knee Durolane that was done on 10/10/22. Patient reports that the durolane injection was helpful but has worn off over time. She was hoping to repeat injections. Allergies lisinopril Allergy (Unknown, Verified 04/21/23 12:56) cough HPI Gel Injection Follow Up HPI Details Doing well S/p gel injection with good results but has pain with ambulation and after activity PFSH Medical History Bilateral arm pain Osteoarthritis of knees, bilateral TIA (transient ischemic attack) Seizure disorder Knee osteoarthritis Urinary incontinence GERD (gastroesophageal reflux disease) COPD (chronic obstructive pulmonary disease) Obesity (BMI 30-39.9) Hypertension UTI (urinary tract infection) Hypertriglyceridemia Impaired glucose tolerance Vitamin D deficiency Surgical History H/O oophorectomy History of abdominal hysterectomy History of bilateral cataract extraction H/O left wrist surgery Family History Father No problems noted. Mother Past heart attack Sister Diabetes Brother Prostate cancer Social History Housing: House Alcohol intake: never Patient Tobacco Use Status: Never used Tobacco e-Cigarette/Vaping Use: Never Used Second Hand Smoke Exposure: No Current occupational status: retired Cognitive needs: Yes (cane) Hearing needs: No Vision needs: Yes (glasses) Physical Exam Vital Signs: BMI result Body Mass Index 30.4 Assessment & Plan Assessment & Plan (1) Osteoarthritis of knees, bilateral: Code(s): M17.0 - Bilateral primary osteoarthritis of knee Qualifiers: Osteoarthritis type: primary Qualified Code(s): M17.0 - Bilateral primary osteoarthritis of knee Plan: Will schedule gel injections as prior injections have been helpful Telehealth Telehealth Location of provider rendering services: practice address Location of patient: address on file Patient Identification confirmed using: Name, : Yes Telehealth method: voice only Patient verbally consented to treatment: Yes Patient verbally consented to billing insurance company: Yes Patient informed of any privacy concerns related to visit: Yes Minutes spent on Phone/Video with Pt.: 10 Coding Level of Care Code Tele New Pt Level 2 (61231) Diagnoses Primary osteoarthritis of both knees M17.0 Osteoarthritis type: primary
[2023-04-21 12:55] VITALS: BMI 30.4
== END 2023-04-21 13:12 | disposition home or self-care (01) ==
LOC: HO.HOS 12:53
PROVIDERS: PCP Internal Medicine; Visit Provider Orthopaedic Surgery
DX: M17.0 Bilateral primary osteoarthritis of knee (principal)
CPT/HCPCS: 99441

== ENCOUNTER → 2023-04-21 12:53 | Outpatient (BNVA) | payer OTHER, SELFPAY | PROVIDERS: PCP Internal Medicine; Visit Provider Orthopaedic Surgery ==

== ENCOUNTER 2023-04-28 13:47 | Outpatient (AMB) | payer OTHER, SELFPAY ==
[2023-04-28 13:54] VITALS: BMI 30.4
--- NOTE | 2023-04-28 13:54 | MHC.OFFVIS ---
Intake Vital Signs 04/28/23 13:54 Height 5 ft 7 in Weight 194 lb BMI 30.4 Intake Visit Reasons: OV-B/L Knee Durolane Injection-last inj. 10/10/22 Intake Note: Nisreen is a 87 year old female who presents today for bilateral knee Durolane injections Allergies lisinopril Allergy (Unknown, Verified 04/28/23 13:55) cough HPI OV-B/L Knee Durolane Injection-last inj. 10/10/22 HPI Details Nisreen is an 87 year old woman with bilateral knee OA. She presents for bilateral Durolane injections. She denies any changes in her symptoms or medical history. [facility] Medical History Bilateral arm pain Osteoarthritis of knees, bilateral TIA (transient ischemic attack) Seizure disorder Knee osteoarthritis Urinary incontinence GERD (gastroesophageal reflux disease) COPD (chronic obstructive pulmonary disease) Obesity (BMI 30-39.9) Hypertension UTI (urinary tract infection) Hypertriglyceridemia Impaired glucose tolerance Vitamin D deficiency Surgical History H/O oophorectomy History of abdominal hysterectomy History of bilateral cataract extraction H/O left wrist surgery Family History Father No problems noted. Mother Past heart attack Sister Diabetes Brother Prostate cancer Social History Housing: House Alcohol intake: never Patient Tobacco Use Status: Never used Tobacco e-Cigarette/Vaping Use: Never Used Second Hand Smoke Exposure: No Current occupational status: retired Cognitive needs: Yes (cane) Hearing needs: No Vision needs: Yes (glasses) Review of Systems Const All systems reviewed & are unremarkable except as noted in HPI and below Physical Exam Vital Signs: BMI result Body Mass Index 30.4 Const General: no acute distress, alert and awake Orientation/consciousness: patient oriented x3 HEENT Head: Yes normocephalic and Yes atraumatic Eyes EOM: EOMs intact bilaterally Resp Effort & Inspection: normal respiratory effort and able to speak in complete sentences Cardio Jugular venous distension: no JVD Skin General skin exam: turgor normal Rashes: no rashes Neuro General: patient oriented x3 Extrem Other: skin c/d/i Psych Appearance: grossly normal Affect: normal affect Attitude: cooperative Office Procedures Joint Injection/Drain Joint Injection/Drain Details: Injected Durolane. Site was prepped using aseptic technique. Patient tolerated the procedure well. Primary Site: right knee Secondary Site: left knee Approach Used: anterolateral Coding - Large joint 88648 - Glenohumeral/Tronchanteric Bursa/Intraarticular Procedure code (CPT) selection complete Assessment & Plan Assessment & Plan (1) Knee osteoarthritis: Comment: Bilateral Code(s): M17.10 - Unilateral primary osteoarthritis, unspecified knee Plan: Injected bilateral knees with Durolane. Nisreen is not a surgical candidate. Will follow up as needed. Plan Prepared for Henrry Alvarez MD by Rahul Mancia, electromedical service engineer, on 04/28/23 at 2:04 PM, EST. Coding Level of Care Code Est Pt Level 2 (65137) Diagnoses Knee osteoarthritis M17.10 CPT Codes Coding - Large joint: 27125 - Large joint ([id number]) Coding - Joint 7: 40857 - Glenohumeral/Tronchanteric Bursa/Intraarticular ([id number])
== END 2023-04-28 14:15 | disposition home or self-care (01) ==
PROVIDERS: PCP Internal Medicine; Visit Provider Orthopaedic Surgery
DX: M17.0 Bilateral primary osteoarthritis of knee (principal)
CPT/HCPCS: 20610

== ENCOUNTER → 2023-04-28 13:47 | Outpatient (BNVA) | payer OTHER, SELFPAY | PROVIDERS: PCP Internal Medicine; Visit Provider Orthopaedic Surgery | DX: M17.0 Bilateral primary osteoarthritis of knee (principal) | CPT/HCPCS: 20610; J7318 ==

== ENCOUNTER 2023-05-22 11:45 | Outpatient (REF) | payer OTHER, SELFPAY | END 2023-05-22 11:46 | disposition home or self-care (01) | LOC: HO.MAMMO 11:45 | PROVIDERS: PCP Internal Medicine; Visit Provider Internal Medicine | DX: Z12.31 Encounter for screening mammogram for malignant neoplasm of breast (principal) | CPT/HCPCS: 77063; 77067 ==

== ENCOUNTER → 2023-05-22 12:15 | Outpatient (BNV) | payer OTHER, SELFPAY | PROVIDERS: PCP Internal Medicine; Visit Provider Radiology Diagnostic Radiology | DX: Z12.31 Encounter for screening mammogram for malignant neoplasm of breast (principal) | CPT/HCPCS: 77063; 77067 ==

== ENCOUNTER 2023-10-06 13:20 | Outpatient (REF) | payer OTHER, SELFPAY ==
[2023-10-06 15:20] LABS: Calcium 10.1 mg/dL (8.4-10.2)
[2023-10-06 15:45] LABS: Parathyroid Hormone Intact 107.5 pg/mL (8.7-77.1)
[2023-10-06 15:48] LABS: Appearance Urine Cloudy; Color Urine Yellow; Glucose Urine UA Negative (Negative); Leukocyte Esterase Urine Moderate (2+) (Negative); Nitrite Urine Negative (Negative); PH 8.5 (5.0-9.0); Specific Gravity - Urine 1.015 (1.005-1.025); UMIC TRIGGER UA YES; UMIC TRIGGER UACC YES; Urine Blood Negative (Negative); Urine Ketones Trace mg/dL (Negative); Urine Protein 30 (1+) mg/dL (Neg-Trace)
[2023-10-06 16:02] LABS: Bacteria Urine 4+ (None Seen); Other Crystals Urine Present; RBC Urine 0-2 /HPF (0-2); UACC Culture Trigger YES; WBC Urine 21-50 /HPF (0-5)
== END 2023-10-06 13:21 | disposition home or self-care (01) ==
LOC: HO.LAB 13:20
PROVIDERS: PCP Internal Medicine; Visit Provider Internal Medicine
DX: E83.52 Hypercalcemia (principal); N39.0 Urinary tract infection, site not specified; R30.0 Dysuria
CPT/HCPCS: 36415; 81001; 82310; 83970; 87086

== ENCOUNTER 2023-10-09 10:00 | Outpatient (AMB) | payer OTHER, SELFPAY ==
[2023-10-09 10:14] VITALS: BP 136/82; PULSE 84; O2SAT 93; BMI 31.0
--- NOTE | 2023-10-09 10:14 | MHC.PC.OV ---
Vital Signs 10/09/23 10:14 Height 5 ft 7 in Weight 198 lb BMI 31.0 BP 136/82 Blood Pressure Location Lt brachial Position Sitting Pulse 84 Pulse Source Pulse Oximeter Pulse Oximetry (%) 93 Oxygen Delivery Method Room Air Intake Visit Reasons: Urinary incontinence, osteoarthritis of the knee Allergies lisinopril Allergy (Unknown, Verified 10/09/23 10:14) cough Amlodipine Adverse Reaction (Intermediate, Uncoded 10/09/23 10:14) Leg swelling Medication List - Last Reconciled 10/09/23 by Nicola Lebron MD acetaminophen (Tylenol Extra Strength) 1,000 mg PO Q6H PRN aspirin 81 mg PO DAILY [BATH AND SHOWER STEP WITH HANDLE As directed] celecoxib (Celebrex) 200 mg PO DAILY 90 days [Contour plus bladder pads As directed] [EASY RISE WALKER As directed] estradiol (Imvexxy Starter Pack) vaginal PER PKG DIR estradiol 0.01%(0.1mg/gram) 1 g vaginal 2XW [flushable toilet wipes As directed] fluticasone propionate 50 mcg/actuation 1 spray intranasal DAILY [gloves As directed] [gloves As directed] losartan 25 mg PO DAILY mirtazapine 7.5 mg PO BEDTIME multivitamin 1 tab PO DAILY nystatin 1 appl topical DAILY omeprazole 20 mg PO QAM [Pad liners for bed and chair As directed] [PAIN RELIEVING PATCHES WITH HEAT As directed] pravastatin 20 mg PO DAILY [reclining lift chair. As directed] sennosides-docusate sodium 8.6-50 mg (Senna Plus) 1 tab-cap PO BID PRN [underwear pull ups 3 per day As directed] Tobacco use date assessed: 04/10/23 Fall risk assessment: 1 Fall in past year Last assessed Fall Risk: 10/09/23 Dental Screening Dental Screen Date: 04/10/23 HPI Urinary incontinence, osteoarthritis of the knee HPI Details 88-year-old obese female with hypertension hypercholesterolemia impaired glucose tolerance with generalized anxiety disorder knee osteoarthritis and urinary incontinence last seen in 04/12/2023. Review of the notes patient has seen the Orthopedics for during injection in April 2023 knee pain still and will be seeing ortho for another shot? steroid. complain of arm pain and advised to exercises. concern on recurrent UTI. blood work done showing high PTH [facility] Medical History Bilateral arm pain Osteoarthritis of knees, bilateral TIA (transient ischemic attack) Seizure disorder Knee osteoarthritis Urinary incontinence GERD (gastroesophageal reflux disease) COPD (chronic obstructive pulmonary disease) Obesity (BMI 30-39.9) Hypertension UTI (urinary tract infection) Hypertriglyceridemia Impaired glucose tolerance Vitamin D deficiency Surgical History H/O oophorectomy History of abdominal hysterectomy History of bilateral cataract extraction H/O left wrist surgery Family History Father No problems noted. Mother Past heart attack Sister Diabetes Brother Prostate cancer Social History Housing: House Alcohol intake: never Patient Tobacco Use Status: Never used Tobacco e-Cigarette/Vaping Use: Never Used Second Hand Smoke Exposure: No Current occupational status: retired Cognitive needs: Yes (cane) Hearing needs: No Vision needs: Yes (glasses) Questionnaire PHQ-9 Over the last 2 weeks, how often have you been bothered by any of the following problems? 1. Little interest or pleasure in doing things: not at all 2. Feeling down, depressed, or hopeless: not at all 3. Trouble falling or staying asleep, or sleeping too much: not at all 4. Feeling tired or having little energy: not at all 5. Poor appetite or overeating: not at all 6. Feeling bad about yourself - or that you are a failure or have let yourself or your family down: not at all 7. Trouble concentrating on things, such as reading the newspaper or watching television: not at all 8. Moving or speaking so slowly that other people could have noticed. Or the opposite - being so fidgety or restless that you have been moving around a lot more than usual: not at all 9. Thoughts that you would be better off or of hurting yourself in some way: not at all Total score: 0 Depression Screening Interpretation: Negative Depression Screening Done: Yes Source: Developed by Drs. Gabriel Jiménez, Krupa Paez, Jesus Quintana and colleagues, with an educational akila from [employer]. Thrive Questionnaire Date Thrive assessed: 04/10/23 RUBINA-7 AMB Questionnaire RUBINA-7 Date RUBINA - 7 assessed: 04/10/23 Source: Developed by Drs. Gabriel Jiménez, Krupa Paez, Jesus Quintana and colleagues, with an educational akila from [employer]. Physical exam (Primary Care) Vital Signs: Oxygen Delivery Method Room Air 10/09/23 10:14 Tobacco/Smoking Status: Tobacco use Status Tobacco use date assessed 04/10/23 04/10/23 09:59 Patient Tobacco Use Status Never used Tobacco 04/10/23 09:59 e-Cigarette/Vaping Use Never Used 04/10/23 09:59 Depression Screening Interpretation: Negative Thrive Assessment: Date of Thrive Assessment Date Thrive assessed 04/10/23 04/10/23 09:59 Const General: alert; No acute distress Eyes Conjunctivae: conjunctivae normal Resp Auscultation: clear to auscultation bilaterally Cardio Rate: regular rate Rhythm: regular rhythm GI Inspection: Yes normal to inspection Extrem General: Yes normal to inspection and No edema Assessment and Plan Assessment & Plan (1) Impaired glucose tolerance: Code(s): R73.02 - Impaired glucose tolerance (oral) Plan: Decrease the amount of carbohydrate intake, pasta, bread, rice and potatoes are all sugar and that is aside from all the sweet stuff, remember that fruits are good but they are Sweet also. Will continue to monitor (2) Hypertension: Code(s): I10 - Essential (primary) hypertension Qualifiers: Hypertension type: essential hypertension Qualified Code(s): I10 - Essential (primary) hypertension Plan: Continue with blood pressure medication. Decrease salt intake and exercise on losartan 25 mg once a day (3) Hypertriglyceridemia: Code(s): E78.1 - Pure hyperglyceridemia Plan: Avoid fried foods, chicken skin, eggs, butter margarine, pastries and meat. Be it pork or beef they have a lot of cholesterol LDL goal of less than 130 and triglyceride of less than 150 on pravastatin 20 mg once a day (4) Obesity (BMI 30-39.9): Code(s): E66.9 - Obesity, unspecified Plan: Diet and exercise (5) COPD (chronic obstructive pulmonary disease): Code(s): J44.9 - Chronic obstructive pulmonary disease, unspecified Qualifiers: COPD type: emphysema Emphysema type: unspecified Qualified Code(s): J43.9 - Emphysema, unspecified Plan: Stable (6) GERD (gastroesophageal reflux disease): Code(s): K21.9 - Gastro-esophageal reflux disease without esophagitis Qualifiers: Esophagitis presence: without esophagitis Qualified Code(s): K21.9 - Gastro-esophageal reflux disease without esophagitis Plan: Avoid the foods that causes that usually spicy foods, tomato products, juices, coffee, soda and foods that your sensitive to. After eating do not lie down, allow 3-4 hours before in lie down. And keep the head of bed above 30 degrees to avoid the acid from going up. On omeprazole 20 mg once a day (7) Generalized anxiety disorder: Code(s): F41.1 - Generalized anxiety disorder Plan: Continue with mirtazapine (8) Recurrent urinary tract infection: Code(s): N39.0 - Urinary tract infection, site not specified Plan: Female hormone sent as a vaginal cream, Macrobid antibiotics sent (9) Actinic keratoses: Code(s): L57.0 - Actinic keratosis Plan: Dermatology referral done (10) Hyperparathyroidism: Code(s): E21.3 - Hyperparathyroidism, unspecified Plan: Patient is referred to Endocrinology Orders: Orders Complete Blood Count Auto Diff Today R73.02 - Impaired glucose tolerance (oral) Lipid Panel Today E78.00 - Pure hypercholesterolemia, unspecified, R73.02 - Impaired glucose tolerance (oral) Thyroid Stimulating Hormone Today R73.02 - Impaired glucose tolerance (oral) Vitamin D 25-OH Total Today R73.02 - Impaired glucose tolerance (oral) UA CC w/rflx Micro + Cult Today R30.0 - Dysuria, R32 - Unspecified urinary incontinence Hemoglobin A1c Today R73.02 - Impaired glucose tolerance (oral) Comprehensive Met. Panel Today R73.02 - Impaired glucose tolerance (oral) Vitamin B12 and Folate Today R73.02 - Impaired glucose tolerance (oral) Referrals Dermatology Referral L57.0 - Actinic keratosis Endocrinology Referral E21.3 - Hyperparathyroidism, unspecified Medications: New estradiol (Imvexxy Starter Pack) vaginal PER PKG DIR 18 ea 1RF N39.0 - Urinary tract infection, site not specified estradiol 0.01%(0.1mg/gram) 1 g vaginal 2XW 42.5 grams 0RF N39.0 - Urinary tract infection, site not specified nitrofurantoin monohyd/m-cryst 100 mg (Macrobid) must administer with a meal/food 100 mg PO Q12H 7 days 14 caps 0RF N39.0 - Urinary tract infection, site not specified Coding Level of Care Code Est Pt Level 4 (32299) Diagnoses Impaired glucose tolerance R73.02 Essential hypertension I10 Hypertension type: essential hypertension Hypertriglyceridemia E78.1 Obesity (BMI 30-39.9) E66.9 Pulmonary emphysema, unspecified emphysema type J43.9 COPD type: emphysema Emphysema type: unspecified Gastroesophageal reflux disease without esophagitis K21.9 Esophagitis presence: without esophagitis Generalized anxiety disorder F41.1 Recurrent urinary tract infection N39.0 Actinic keratoses L57.0 Hyperparathyroidism E21.3
== END 2023-10-09 10:52 | disposition home or self-care (01) ==
PROVIDERS: PCP Internal Medicine; Visit Provider Internal Medicine
DX: J43.9 Emphysema, unspecified (principal); E21.3 Hyperparathyroidism, unspecified; E66.9 Obesity, unspecified; Z68.31 Body mass index [BMI] 31.0-31.9, adult; R73.02 Impaired glucose tolerance (oral); I10 Essential (primary) hypertension; E78.1 Pure hyperglyceridemia; K21.9 Gastro-esophageal reflux disease without esophagitis; F41.1 Generalized anxiety disorder; N39.0 Urinary tract infection, site not specified; L57.0 Actinic keratosis
CPT/HCPCS: 99214

== ENCOUNTER 2023-10-16 09:53 | Outpatient (AMB) | payer OTHER, SELFPAY ==
[2023-10-16 09:54] VITALS: BP 118/74; PULSE 86; BMI 31.2
--- NOTE | 2023-10-16 09:54 | MHC.OFFVIS ---
Vital Signs 10/16/23 09:54 Height 5 ft 7 in Weight 199 lb 1.239 oz BMI 31.2 BP 118/74 Blood Pressure Location Lt brachial Position Sitting Pulse 86 Pulse Source Pulse Oximeter Intake Visit Reasons: Hyperparathyroidism-confirmed Intake Note: Patient present today for Hyperparathyroidism follow up visit. Senior Technical Editor Required: No Accompanied by: Daughter Allergies lisinopril Allergy (Unknown, Verified 10/16/23 10:00) cough Amlodipine Adverse Reaction (Intermediate, Uncoded 10/16/23 10:00) Leg swelling Medication List - Last Reconciled 10/16/23 by Gabriel Gomez MD acetaminophen (Tylenol Extra Strength) 1,000 mg PO Q6H PRN aspirin 81 mg PO DAILY [BATH AND SHOWER STEP WITH HANDLE As directed] celecoxib (Celebrex) 200 mg PO DAILY 90 days [Contour plus bladder pads As directed] [EASY RISE WALKER As directed] estradiol (Imvexxy Starter Pack) vaginal PER PKG DIR estradiol 0.01%(0.1mg/gram) 1 g vaginal 2XW [flushable toilet wipes As directed] fluticasone propionate 50 mcg/actuation 1 spray intranasal DAILY [gloves As directed] [gloves As directed] losartan 25 mg PO DAILY mirtazapine 7.5 mg PO BEDTIME multivitamin 1 tab PO DAILY nitrofurantoin monohyd/m-cryst 100 mg (Macrobid) 100 mg PO Q12H 7 days nystatin 1 appl topical DAILY omeprazole 20 mg PO QAM [Pad liners for bed and chair As directed] [PAIN RELIEVING PATCHES WITH HEAT As directed] pravastatin 20 mg PO DAILY [reclining lift chair. As directed] sennosides-docusate sodium 8.6-50 mg (Senna Plus) 1 tab-cap PO BID PRN [underwear pull ups 3 per day As directed] HPI Comments Details: 88 YO F with who is seen in consultation at the request of PCP for elevated parathyroid hormone levels First noted to have high PTH levels recently. Had a mildly elevated calcium 09/2022 Not Currently using Calcium supplement . Takes 2000 IU of Vitamin D daily switched 2 wks ago from 1000 IU Not Currently using HCTZ. Kidney stones: No Osteoporosis: Yes - does not take meds History of [place] use: No Biotin use: No Has Family history of kidney stones in daughter : Renal imaging: [] DXA: Labs: [facility] Medical History Bilateral arm pain Osteoarthritis of knees, bilateral TIA (transient ischemic attack) Seizure disorder Knee osteoarthritis Urinary incontinence GERD (gastroesophageal reflux disease) COPD (chronic obstructive pulmonary disease) Obesity (BMI 30-39.9) Hypertension UTI (urinary tract infection) Hypertriglyceridemia Impaired glucose tolerance Vitamin D deficiency Surgical History H/O oophorectomy History of abdominal hysterectomy History of bilateral cataract extraction H/O left wrist surgery Family History Father No problems noted. Mother Past heart attack Sister Diabetes Brother Prostate cancer Social History Housing: House Alcohol intake: never Patient Tobacco Use Status: Never used Tobacco e-Cigarette/Vaping Use: Never Used Second Hand Smoke Exposure: No Current occupational status: retired Cognitive needs: Yes (cane) Hearing needs: No Vision needs: Yes (glasses) Physical Exam Vital Signs: Last Vital Signs Pulse 86 10/16/23 09:54 BP 118/74 10/16/23 09:54 BMI result Body Mass Index 31.2 There are no Cushingoid features. Neck exam shows nl thyroid about 15 gms. Lungs CTA. Heart S1 S2 Reg R/R -MRG. Abdomina exam benign . Muscle strength 5/5 proximally. No hirsuitism present. No striae present. Skin exam without lesion Assessment & Plan Assessment & Plan (1) Hyperparathyroidism: Code(s): E21.3 - Hyperparathyroidism, unspecified Category: Medical Plan: This 88-year-old white female found to have an elevated PTH. Differential diagnosis includes spurious elevation of PTH do laboratory error versus secondary hyperparathyroidism due to vitamin-D deficiency versus primary hyperparathyroidism. Plan is to repeat calcium, albumin, PTH, 25 hydroxy vitamin-D at lab [facility]. If PTH is persistently elevated do a further workup which may include 24 hour urine for calcium and creatinine Orders: Orders Calcium Today E21.3 - Hyperparathyroidism, unspecified Albumin Level Today E21.3 - Hyperparathyroidism, unspecified Vitamin D 25-OH Total Today E21.3 - Hyperparathyroidism, unspecified Parathyroid Hormone Intact Today E21.3 - Hyperparathyroidism, unspecified Coding Level of Care Code New Pt Level 4 (90544) Diagnoses Hyperparathyroidism E21.3
== END 2023-10-16 10:49 | disposition home or self-care (01) ==
PROVIDERS: PCP Internal Medicine; Visit Provider Internal Medicine Endocrinology, Diabetes & Metabolism
DX: E21.3 Hyperparathyroidism, unspecified (principal)
CPT/HCPCS: 99204

== ENCOUNTER → 2023-10-16 09:53 | Outpatient (BNVA) | payer OTHER, SELFPAY | PROVIDERS: PCP Internal Medicine; Visit Provider Internal Medicine Endocrinology, Diabetes & Metabolism | DX: E21.3 Hyperparathyroidism, unspecified (principal) | CPT/HCPCS: 99202 ==

== ENCOUNTER 2023-11-03 09:58 | Outpatient (AMB) | payer OTHER, SELFPAY ==
[2023-11-03 10:16] VITALS: BMI 31.2
--- NOTE | 2023-11-03 10:16 | A.OFFVIS_ITS ---
Vital Signs 11/03/23 10:16 Height 5 ft 7 in Weight 199 lb BMI 31.2 Intake Visit Reasons: OV- B/L knee pain last inj 04/28/23 durolane Intake Note: Nisreen is an 88 year old female who presents today for a follow up of her bilateral knee osteoarthritis. Durolane injections last administered 04/28/23. Patient reports that the injections were helpful but they have worn off. She would like to have repeat injections and is hoping to have cortisone today. Allergies lisinopril Allergy (Unknown, Verified 11/03/23 10:21) cough Amlodipine Adverse Reaction (Intermediate, Uncoded 11/03/23 10:21) Leg swelling HPI HPI OV- B/L knee pain last inj 04/28/23 durolane: Details: Nisreen is an 88 year old female who presents today for a follow up of her bilateral knee osteoarthritis. Durolane injections last administered 04/28/23. Patient reports that the injections were helpful but they have worn off. She would like to have repeat injections and is hoping to have cortisone today. [facility] Medical History Bilateral arm pain Osteoarthritis of knees, bilateral TIA (transient ischemic attack) Seizure disorder Knee osteoarthritis Urinary incontinence GERD (gastroesophageal reflux disease) COPD (chronic obstructive pulmonary disease) Obesity (BMI 30-39.9) Hypertension UTI (urinary tract infection) Hypertriglyceridemia Impaired glucose tolerance Vitamin D deficiency Surgical History H/O oophorectomy History of abdominal hysterectomy History of bilateral cataract extraction H/O left wrist surgery Family History Father No problems noted. Mother Past heart attack Sister Diabetes Brother Prostate cancer Social History Housing: House Alcohol intake: never Patient Tobacco Use Status: Never used Tobacco e-Cigarette/Vaping Use: Never Used Second Hand Smoke Exposure: No Current occupational status: retired Cognitive needs: Yes (cane) Hearing needs: No Vision needs: Yes (glasses) Physical Exam Vital Signs: BMI result Body Mass Index 31.2 Extrem Other: Medial compartment TTP bilaterally General deconditioning skin c/d/i Office Procedures Joint Injection/Aspiration Joint Injection/Aspiration Details: Injected 1 mL of Decadron and 3 mL 1% lidocaine and 3 mL of 0.25% Marcaine. Site was prepped using aseptic technique. Patient tolerated the procedure well. Primary Site: right knee Secondary Site: left knee Approach Used: anterolateral Coding - Large joint 11314 - Glenohumeral/Tronchanteric Bursa/Intraarticular Procedure code (CPT) selection complete Assessment & Plan Assessment & Plan (1) Knee osteoarthritis: Comment: Bilateral Code(s): M17.10 - Unilateral primary osteoarthritis, unspecified knee Category: Medical Plan: Warned of hyperglycemic effects of steroids. Injected bilateral knees and recommend gel and a referral to Pain Management as she is not a surgical candidate. (2) Impaired glucose tolerance: Code(s): R73.02 - Impaired glucose tolerance (oral) Category: Medical Plan I injected bilateral knees with cortisone today and we will petition insurance for repeat gel injections. Once approval is obtained we will contact patient for scheduling. I have also placed a referral to Pain Management Coding Level of Care Code Est Pt Level 4 (54550) Diagnoses Knee osteoarthritis M17.10 Impaired glucose tolerance R73.02 CPT Codes Coding - Large joint: 48749 - Large joint ([id number]) Coding - Joint 7: 70227 - Glenohumeral/Tronchanteric Bursa/Intraarticular ([id number])
== END 2023-11-03 10:45 | disposition home or self-care (01) ==
PROVIDERS: PCP Internal Medicine; Visit Provider Orthopaedic Surgery
DX: M17.0 Bilateral primary osteoarthritis of knee (principal); R73.02 Impaired glucose tolerance (oral)
CPT/HCPCS: 20610; 99214

== ENCOUNTER → 2023-11-03 09:58 | Outpatient (BNVA) | payer OTHER, SELFPAY | PROVIDERS: PCP Internal Medicine; Visit Provider Orthopaedic Surgery | DX: M17.0 Bilateral primary osteoarthritis of knee (principal); R73.02 Impaired glucose tolerance (oral) | CPT/HCPCS: 20610; 99212; J0665; J1100 ==

== ENCOUNTER 2023-12-22 10:42 | Outpatient (REF) | payer OTHER, SELFPAY | END 2023-12-22 10:43 | disposition home or self-care (01) | LOC: HO.SH 10:42 | PROVIDERS: Visit Provider Internal Medicine | DX: Z13.89 Encounter for screening for other disorder (principal) ==

== ENCOUNTER 2023-12-22 11:00 | Inpatient (IN) | payer OTHER, SELFPAY ==
[2023-12-22] VITALS (10 sets, daily range): BP systolic 130–173; BP diastolic 72–99; PULSE 55–115; RESP 16–24; TEMP 35.6–39.4; O2SAT 95–99; BMI 31.7
--- NOTE | ~2023-12-22 | CT_ITS ---
EXAMINATION: CT HEAD WITHOUT CONTRAST/STROKE ALERT CLINICAL INFORMATION: Acute change in mental status. COMPARISON: CT scan of brain on 06/30/2014, MRI brain on 01/11/2020 TECHNIQUE: Contiguous axial imaging was performed from the skull-base to vertex without intravenous administration of contrast. This CT examination was performed using dose optimization techniques as appropriate, variously including the following: *Automated exposure control *Adjustment of mA and/or kV according to patient size (this includes techniques or standardized protocols for targeted exams where dose is matched to indication/reason for exam; i.e. extremities or head) *Use of iterative reconstruction technique DLP: 729 mGy-cm FINDINGS: Ventricles, sulci and cisterns are dilated. Scattered patchy low-attenuation lesions are seen in bilateral frontal and parietal subcortical and deep white matters, more extensive in the parietal lobes. There is no midline shift, no abnormal intra- or extra- axial fluid accumulation. [place] and white matter differentiation is normal. Bone window images show no evidence of skull fracture. CT/CT head for stroke IMPRESSION: 1. 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 2. No intracranial hemorrhage or skull fracture is seen. 3. No evidence of space occupying lesion could be found. 4. The current plain CT scan of the brain shows no diagnostic evidence of acute cerebral infarction. This critical result was discussed with Dr. Jovan Cerda on 12/22/2023 at 1136 hours and it was ascertained that the content and urgency of this report was understood at the time of direct communication. Electronically signed by: Marty Hannon MD 12/22/2023 11:38 AM EDT
--- NOTE | ~2023-12-22 | CT_ITS ---
EXAMINATION: CT angio head neck stroke CLINICAL INFORMATION: Stroke protocol. COMPARISON: CT head 12/22/2023. MR brain 01/11/2020. TECHNIQUE: Damage Assessor images were obtained. A CT angiogram of the head and neck was performed in the arterial phase after the intravenous administration of 70 mL Omnipaque 350. Pre and delayed postcontrast images of the head were also obtained. 3D images were processed on an independent workstation under concurrent supervision. Arterial stenoses are measured in accordance with NASCET criteria or similar method if applicable. This CT examination was performed using dose optimization techniques as appropriate, including one or more of the following: Automated exposure control, iterative reconstruction, and adjustment of technique factors (mA and/or kVp) according to patient size (this includes techniques or standardized protocols for targeted exams where dose is matched to indication/reason for exam). Fleischner Society criteria for the followup of incidental pulmonary nodules was implemented if appropriate. Total exam dose-length product 1543 mGy-cm FINDINGS: Head: Postcontrast images reveal no abnormal intracranial mass or enhancement. There is no intracranial mass effect or midline shift. Lateral and third ventricles are normal. No hydrocephalus. Scattered nonspecific foci of hypoattenuation are visualized within the periventricular white matter. [place]-white matter differentiation is preserved and there is no evidence of an acute territorial infarct. The calvarium and skull base are intact. Mastoid air cells and middle ear cavities are well aerated. CT angiogram neck: Scattered atheromatous calcification involves the aortic arch apex. Origins of the major aortic branches are grossly patent. Common carotid arteries are normal. A small amount of partially calcified atheromatous plaque involves both carotid bifurcations. No stenosis of the intracranial internal carotid arteries. The cervical segments of the vertebral arteries are widely patent. CT angiogram head: Intracranial internal carotid arteries are patent. Intradural vertebral artery segments and basilar artery are patent. Anterior, middle, and posterior cerebral artery complexes are normal. No intracranial large vessel occlusion. No identifiable aneurysm or high flow vascular lesion. Other: Soft tissues of the neck including the thyroid gland are normal. No pathologically enlarged cervical lymph nodes. No mediastinal or axillary adenopathy is visualized within the [id number] of this examination. There is pleural-parenchymal scarring at the apices of both lungs. No acute osseous finding. Specifically no worrisome lytic or blastic osseous lesion. CT/CT angio head neck stroke IMPRESSION: There are scattered chronic small vessel ischemic changes within the periventricular white matter. Otherwise unremarkable examination. No evidence of acute territorial infarct or hemorrhage. No abnormal intracranial mass or enhancement. The CT angiogram reveals no stenosis of the cervical carotid or vertebral arteries. No intracranial large vessel occlusion. This critical result was discussed with Dr Vinod Rivas at 12:08 PM on 12/22/2023 and it was ascertained that the content and urgency of the report was understood at the time of direct communication. Electronically signed by: Gabriel Kern MD 12/22/2023 12:11 PM EDT
--- NOTE | 2023-12-22 11:07 | PC.NURSE ---
upon ED arrival - vital signs/weight obtained prior to being transported to CT immediately. during CT scan, 18gIV placed in the left forearm - labs obtained/sent to lab. no sob/wob noted. respirations even/unlabored. plan to move to ED14. daughter bedside for support. plan of care ongoing.
--- NOTE | 2023-12-22 11:15 | ECG_ITS ---
Test Reason : STROKE Blood Pressure : / mmHG Vent. Rate : 069 BPM Atrial Rate : 069 BPM P-R Int : 154 ms QRS Dur : 132 ms QT Int : 422 ms P-R-T Axes : 026 029 019 degrees QTc Int : 452 ms Normal sinus rhythm Right bundle branch block Possible Inferior infarct (cited on or before 24-JUN-2014) Abnormal ECG When compared with ECG of 24-JUN-2014 22:59, Right bundle branch block is now Present Referred By: Yakov Borjas Electronically Signed By:RASHAWN MULLEN
--- NOTE | 2023-12-22 11:16 | ED_ITS ---
HPI - Neuro Symptoms/Deficit General Chief Complaint: Stroke Stated Complaint: Not making sense from speech and hearing Time Seen by Provider: 12/22/23 11:48 History of Present Illness ED Provider: Tip CASTILLO Narrative: The patient is an 88-year-old woman who was brought to the emergency room because of a change in mental status. The patient had had an appointment this morning with a hearing therapist today regarding her hearing aids. The patient's daughter said the patient seemed normal earlier in the morning but when they got to the appointment at around 10:30AM patient seemed confused. The patient's daughter says this seemed similar to confusion the patient has had with urinary tract infections in the past. The patient had to leave her therapy appointment and was brought to the emergency room. The patient has not complained of any pain. There has been no facial asymmetry. There has been no apparent lateralizing weakness. Other than seeming confused and having difficulty with the speech the daughter does not feel the patient is exhibiting any other change from her baseline. The daughter feels that her speech difficulty and her apparent confusion seemed consistent with behaviors during previous urinary tract infections. Also the patient has some degree of cognitive impairment. Currently the the patient is identifying her daughter as her sister and is not really very good at answering questions. She is repeating the name ?Nadege, the name of her sister. The patient is not on anticoagulants. Related Data Home Medications ?Medication ?Instructions ?Recorded ?Confirmed acetaminophen 500 mg tablet 1,000 mg PO Q6H PRN 02/02/20 10/09/23 (Tylenol Extra Strength) multivitamin 1 tab PO DAILY 02/02/20 10/09/23 Previous Rx's ?Medication ?Instructions ?Recorded nystatin 100,000 unit/gram topical 1 appl topical DAILY #60 grams 07/10/20 powder sennosides 8.6 mg-docusate sodium 1 tab-cap PO BID PRN constipation 02/01/21 50 mg capsule (Senna Plus) #180 caps reclining lift chair. #1 ea 01/18/22 celecoxib 200 mg capsule (Celebrex) 200 mg PO DAILY 90 days #90 caps 03/13/22 fluticasone propionate 50 1 spray intranasal DAILY #48 mL 06/15/22 mcg/actuation nasal spray,suspension BATH AND SHOWER STEP WITH HANDLE #1 ea 04/10/23 EASY RISE WALKER #1 ea 04/10/23 PAIN RELIEVING PATCHES WITH HEAT #60 ea 04/29/23 aspirin 81 mg tablet,delayed 81 mg PO DAILY #90 tabs 05/29/23 release omeprazole 20 mg capsule,delayed 20 mg PO QAM #90 caps 06/13/23 release pravastatin 20 mg tablet 20 mg PO DAILY #90 tabs 06/13/23 mirtazapine 7.5 mg tablet 7.5 mg PO BEDTIME #30 tabs 08/04/23 Contour plus bladder pads #3 ea 08/06/23 Pad liners for bed and chair #6 ea 08/06/23 gloves #1 ea 08/06/23 gloves #1 ea 08/06/23 underwear pull ups 3 per day #6 ea 08/06/23 losartan 25 mg tablet 25 mg PO DAILY #30 tabs 09/01/23 flushable toilet wipes #5 ea 09/17/23 estradiol 0.01% (0.1 mg/gram) 1 g vaginal 2XW #42.5 grams 10/09/23 vaginal cream estradiol 4 mcg vaginal insert, in See Rx Instructions vaginal PER 10/09/23 a starter dose pack (Imvexxy PKG DIR #18 ea Starter Pack) nitrofurantoin 100 mg PO Q12H 7 days #14 caps 10/09/23 monohydrate/macrocrystals 100 mg capsule (Macrobid) Allergies Allergy/AdvReac Type Severity Reaction Status Date / Time lisinopril Allergy Unknown cough Verified 12/22/23 11:08 Amlodipine AdvReac Intermediate Leg Uncoded 12/22/23 11:08 swelling Review of Systems 2 Review of Systems: Yes Unobtainable due to mental status PMFSH Past Medical History Medical History Bilateral arm pain Osteoarthritis of knees, bilateral TIA (transient ischemic attack) Seizure disorder Knee osteoarthritis Urinary incontinence GERD (gastroesophageal reflux disease) COPD (chronic obstructive pulmonary disease) Obesity (BMI 30-39.9) Hypertension UTI (urinary tract infection) Hypertriglyceridemia Impaired glucose tolerance Vitamin D deficiency Surgical History H/O oophorectomy History of abdominal hysterectomy History of bilateral cataract extraction H/O left wrist surgery Family History Family History Father No problems noted. Mother Past heart attack Sister Diabetes Brother Prostate cancer Social History Social History Housing: House Alcohol intake: never Patient Tobacco Use Status: Never used Tobacco e-Cigarette/Vaping Use: Never Used Second Hand Smoke Exposure: No Advance Directives: No Advance Directives Information Provided: Yes Current occupational status: retired Cognitive needs: Yes (cane) Hearing needs: No Vision needs: Yes (glasses) Physical Exam 2 Vital Signs: Vital Signs: Last Vital Signs Temp 96.4 F L 12/22/23 12:49 Pulse 68 12/22/23 12:49 Resp 16 12/22/23 12:49 BP 147/73 H 12/22/23 12:49 Pulse Ox 95 12/22/23 12:49 O2 Del Method Room Air 12/22/23 12:49 BMI result Body Mass Index 31.7 Const: Other: The patient is a chronically ill-appearing 88-year-old who was awake and alert. She does not appear in pain or respiratory distress. Seems confused and is not answering questions appropriately. HEENT: Other: No facial asymmetry. Face is symmetrical. Tongue is midline. Mucous membranes moist. Eyes: Other: Pupils are round equal, conjunctivae are clear, lateral gaze is intact, no obvious visual field deficit. Neck: Neck: Yes no JVD Resp: Effort & Inspection: normal respiratory effort Auscultation: clear to auscultation bilaterally Cardio: Rate: regular rate Rhythm: regular rhythm Heart sounds: S1 normal heart sound present and S2 normal heart sound present GI: Other: Abdomen is soft and nontender Skin: Other: Skin is dry and unremarkable Neuro: Other: The patient is awake and alert. She seems confused and disoriented. She can not tell me the correct month or her age. Eye movements are intact and she seems to have no visual field deficit. Face is symmetrical. She does not seem to have dysarthria but speech content is limited. She has symmetrical strength in her extremities. No apparent sensory deficits. No apparent coordination deficits. Technically the patient's NIH stroke scale is approximately 6 although it is difficult to know how much may be attributed to underlying cognitive deficits. Extrem: Other: No peripheral edema. Course Course Course Narrative: RME, this is a rapid medical exam performed by Pedro Luis Borjas please refer to primary provider for complete H&P- 88-year-old female with past medical history significant for hypertension, hyperlipidemia, GERD, COPD not on chronic oxygen presents for evaluation of sudden onset of slurred speech and confusion. The patient is here with her daughter, about 45 minutes prior to arrival the patient has started to act confused, was answering questions appropriately and appeared to have slurred speech. The patient currently has an NIH stroke score of 1 for dysarthria. She has no facial asymmetry, no weakness. Plan for stroke workup including angiography. Patient brought directly tech CT scan and will be given a bed right after. The daughter states that the patient has had similar episodes in the past with UTIs Medications Administered Discontinued Medications Generic Name Dose Route Start Last Admin Trade Name Freq PRN Reason Stop Dose Admin Ceftriaxone Sodium 1 gm/ 50 mls @ 100 mls/hr 12/22/23 13:08 12/22/23 13:23 Sodium Chloride IV 12/22/23 13:37 100 mls/hr ONCE ONE Administration Iohexol 100 ml 12/22/23 11:35 12/22/23 11:35 Iohexol 350 Mg/Ml 100 Ml Infus..Btl IV 12/22/23 11:36 70 ml ONCE ONE Administration Medical Decision Making Medical Decision Making [facility] Narrative: The patient is an 88-year-old female who was brought to the emergency room for evaluation of abrupt onset of altered mental status. She seemed to have an altered mental status change at around 10:30 this morning. She seemed acutely confused with some speech difficulty. No other obvious neurological deficit was apparent. The patient has a history of some degree of cognitive impairment which makes her evaluation somewhat more difficult. She is here with her daughter who additionally says that the patient has change in mental status is very consistent with behaviors she has had with urinary tract infections in the past. The daughter is therefore strongly suggesting that this change in mental status represents a urinary tract infection. The patient was seen at triage and, because of the altered mental status and some speech difficulty, was sent for a stat noncontrast head CT and CT angio of the head and neck for a stroke workup. Both of these tests show no acute findings. Given that she presented within the 3 hour window for thrombolytic therapy I considered whether the patient might be having a stroke. It is not clear. The patient is not significantly hypertensive and her speech difficulty seems possibly more consistent with encephalopathy than aphasia from a stroke. I reached out to Dr. Albarran of Neurology who came to the emergency room to see the patient. He agrees the patient's mental status change is not clearly suggestive of a stroke syndrome. He raises the question of a possible partial seizure. Dr. Albarran and I are in agreement that the diagnosis of a stroke is sufficiently in doubt that we should not administer thrombolytic therapy in this case. I spoke to the daughter about this decision and she is in agreement. The patient will be treated for a possible UTI and will be admitted for further evaluation. At around the time that the decision was made to hospitalize the patient the patient became acutely agitated and belligerent insisting that she wanted to leave the hospital. She required sedation with IM lorazepam and IM olanzapine. Lab Data 12/22/23 11:29 12/22/23 11:29 Labs: Lab Results 12/22/23 12/22/23 12/22/23 Range/Units 11:29 11:40 11:44 WBC 7.7 (4.8-10.8) X10*3/uL RBC 4.55 (4.20-5.50) X10*6/uL Hgb 13.9 (12.0-16.0) g/dl Hct 40.9 (37.0-47.0) % MCV 89.9 (80.0-98.0) fL MCH 30.5 (27.0-33.0) pg MCHC 34.0 (31.0-35.0) g/dl RDW 13.0 (11.0-16.0) % Plt Count 244 (160-400) X10*3/uL MPV 9.3 L (9.4-12.3) fL Immature Gran % (Auto) 0.3 (0.0-0.4) % Neut % (Auto) 58.8 (45-73) % Lymph % (Auto) 30.9 (20-40) % [place] % (Auto) 8.2 (2-11) % Eos % (Auto) 1.3 (0-4) % Baso % (Auto) 0.5 (0-2) % Lymph # (Auto) 2.4 (1.2-4.9) X10*3/uL [place] # (Auto) 0.6 (0.1-1.2) X10*3/uL Eos # (Auto) 0.1 (0.0-0.4) X10*3/uL Baso # (Auto) 0.0 (0.0-0.2) X10*3/uL Abs Immat Gran (auto) 0.02 (0.00-0.03) X10*3/uL Absolute Neuts (auto) 4.5 (2.0-8.3) x10*3/uL Absolute Nucleated RBC 0.000 (0.0-0.012) X10*3/uL Nucleated RBC % (auto) 0.0 (0.0-0.2) /100WBC PT 10.7 L (10.9-12.4) SEC Whole Blood PT 12.1 (11.1-13.5) sec INR 0.9 (0.9-1.1) Whole Blood INR 1.0 (0.9-1.1) APTT 26.9 (26.0-36.8) SEC Sodium 139 (135-145) mmol/L Potassium 4.6 D (3.3-5.1) mmol/L Chloride 109 H (96-108) mmol/L Carbon Dioxide 23 (22-29) mmol/L Anion Gap 12 (12-20) BUN 13 (9-16) mg/dL Creatinine 0.89 (0.5-1.4) mg/dL Estim Creat Clear Calc 51.0 Estimated GFR > 60 POC Glucose 92 (60-115) mg/dL Random Glucose 109 (60-115) mg/dL Calcium 9.7 (8.4-10.2) mg/dL Troponin I High Sens < 2.7 (<3.5-17.0) ng/L C-Reactive Protein 0.16 (< or = 0.50) mg/dL B-Natriuretic Peptide 16 (<100) pg/mL Triglycerides 160 H (<150) mg/dL Cholesterol 163 (<200) mg/dL LDL Cholesterol, Calc 74 (<100) mg/dL HDL Cholesterol 57 (>40) mg/dL Urine Color Urine Appearance Urine pH (5.0-9.0) Ur Specific [place] (1.005-1.025) Urine Protein (Neg-Trace) mg/dL Urine Glucose (UA) (Negative) mg/dL Urine Ketones (Negative) mg/dL Urine Blood (Negative) Urine Nitrite (Negative) Ur Leukocyte Esterase (Negative) Urine RBC (0-2) /HPF Urine WBC (0-5) /HPF Ur Squamous Epith Cells (0-2) /HPF Urine Bacteria (None Seen) Hyaline Casts (0-2) /LPF 12/22/23 Range/Units 12:09 WBC (4.8-10.8) X10*3/uL RBC (4.20-5.50) X10*6/uL Hgb (12.0-16.0) g/dl Hct (37.0-47.0) % MCV (80.0-98.0) fL MCH (27.0-33.0) pg MCHC (31.0-35.0) g/dl RDW (11.0-16.0) % Plt Count (160-400) X10*3/uL MPV (9.4-12.3) fL Immature Gran % (Auto) (0.0-0.4) % Neut % (Auto) (45-73) % Lymph % (Auto) (20-40) % [place] % (Auto) (2-11) % Eos % (Auto) (0-4) % Baso % (Auto) (0-2) % Lymph # (Auto) (1.2-4.9) X10*3/uL [place] # (Auto) (0.1-1.2) X10*3/uL Eos # (Auto) (0.0-0.4) X10*3/uL Baso # (Auto) (0.0-0.2) X10*3/uL Abs Immat Gran (auto) (0.00-0.03) X10*3/uL Absolute Neuts (auto) (2.0-8.3) x10*3/uL Absolute Nucleated RBC (0.0-0.012) X10*3/uL Nucleated RBC % (auto) (0.0-0.2) /100WBC PT (10.9-12.4) SEC Whole Blood PT (11.1-13.5) sec INR (0.9-1.1) Whole Blood INR (0.9-1.1) APTT (26.0-36.8) SEC Sodium (135-145) mmol/L Potassium (3.3-5.1) mmol/L Chloride (96-108) mmol/L Carbon Dioxide (22-29) mmol/L Anion Gap (12-20) BUN (9-16) mg/dL Creatinine (0.5-1.4) mg/dL Estim Creat Clear Calc Estimated GFR POC Glucose (60-115) mg/dL Random Glucose (60-115) mg/dL Calcium (8.4-10.2) mg/dL Troponin I High Sens (<3.5-17.0) ng/L C-Reactive Protein (< or = 0.50) mg/dL B-Natriuretic Peptide (<100) pg/mL Triglycerides (<150) mg/dL Cholesterol (<200) mg/dL LDL Cholesterol, Calc (<100) mg/dL HDL Cholesterol (>40) mg/dL Urine Color Yellow Urine Appearance Cloudy Urine pH 7.5 (5.0-9.0) Ur Specific [place] >= 1.030 H (1.005-1.025) Urine Protein Negative (Neg-Trace) mg/dL Urine Glucose (UA) Negative (Negative) mg/dL Urine Ketones Negative (Negative) mg/dL Urine Blood Negative (Negative) Urine Nitrite Negative (Negative) Ur Leukocyte Esterase Moderate (2+) H (Negative) Urine RBC 0-2 (0-2) /HPF Urine WBC 21-50 H (0-5) /HPF Ur Squamous Epith Cells 0-2 (0-2) /HPF Urine Bacteria 4+ (None Seen) Hyaline Casts 0-2 (0-2) /LPF Independent Interpretation I performed an independent interpretation of an: EKG Interpretation: EKG at 11 40 shows normal sinus rhythm at 69 beats per minute. She has a right bundle branch block. No definite acute ischemic changes. Critical Care Time Critical Care Time Critical Care Time: Yes Total Critical Care Time: 35 Attestation: The patient was critically ill with a high probability of imminent or life- threatening deterioration. ?I spent greater than 30 minutes of discontinuous time evaluating the patient, delivering critical care at the bedside, discussing evaluating data with consultants. ?Critical care time does not include time spent performing separately billable procedures or teaching. ?Time spent performing critical care with 35 minutes. Discharge Plan Discharge Clinical Impression: Altered mental status Patient Disposition: Admitted As Inpatient Print Language: Slovak
[2023-12-22 11:34] LABS: MANUAL DIFF FLAG NO
[2023-12-22 11:35] LABS: Basophils Percent Auto 0.5 % (0-2); Eosinophils Absolute Auto 0.1 X10*3/uL (0.0-0.4); Eosinophils Percent Auto 1.3 % (0-4); Hematocrit 40.9 % (37.0-47.0); Hemoglobin 13.9 g/dl (12.0-16.0); Imm Gran Abs Auto 0.02 X10*3/uL (0.00-0.03); Imm Gran Pct Auto 0.3 % (0.0-0.4); Lymphocytes Absolute Auto 2.4 X10*3/uL (1.2-4.9); Lymphocytes Percent Auto 30.9 % (20-40); Mean Corpuscular Hemoglobin 30.5 pg (27.0-33.0); Mean Corpuscular Volume 89.9 fL (80.0-98.0); Mean Platelet Volume 9.3 fL (9.4-12.3); Monocytes Absolute Auto 0.6 X10*3/uL (0.1-1.2); Monocytes Percent Auto 8.2 % (2-11); Neutrophils Absolute Auto 4.5 x10*3/uL (2.0-8.3); Neutrophils Percent Auto 58.8 % (45-73); Platelet Count 244 X10*3/uL (160-400); Red Blood Count 4.55 X10*6/uL (4.20-5.50); White Blood Count 7.7 X10*3/uL (4.8-10.8)
[2023-12-22] MEDS: iohexoL 350 MG/ML 100 ML INFUS..BTL IV (11:35)
[2023-12-22 11:44] LABS: INTERNATIONAL NORM RATIO 0.9 (0.9-1.1); Prothrombin Time 10.7 SEC (10.9-12.4)
[2023-12-22 11:47] LABS: Partial Thromboplastin Time 26.9 SEC (26.0-36.8)
--- NOTE | 2023-12-22 11:47 | PC.NURSE ---
pt returned from CT at this time. pt placed on yarn examiner skeins - displaying nsr. vital signs stable and up to date. per pt's daughter, pt seemingly confused. unable to answer questions/follow commands appropriately. MD bedside assessing pt at this time. daughter remains bedside for support. plan of care ongoing.
[2023-12-22 11:48] LABS: Glucose, Whole Blood 92 mg/dL (60-115)
[2023-12-22 11:55] LABS: Anion Gap 12 (12-20); Blood Urea Nitrogen 13 mg/dL (9-16); Calcium 9.7 mg/dL (8.4-10.2); Carbon Dioxide 23 mmol/L (22-29); Chloride 109 mmol/L (96-108); Cholesterol 163 mg/dL (<200); Estimated Glomerular Filt Rate > 60; Glucose Random 109 mg/dL (60-115); HDL Cholesterol 57 mg/dL (>40); LDL Cholesterol Calculated 74 mg/dL (<100); Potassium 4.6 mmol/L (3.3-5.1); Sodium 139 mmol/L (135-145); Triglycerides 160 mg/dL (<150)
[2023-12-22 12:01] LABS: Troponin-I High Sensitivity < 2.7 ng/L (<3.5-17.0)
[2023-12-22 12:04] LABS: Prothrombin Time Whole Bld POC 12.1 sec (11.1-13.5)
--- NOTE | 2023-12-22 12:09 | PC.NURSE ---
straight catheterization performed. 125ml of dark yellow, foul smelling urine noted immediately post output, pt tolerated well. UA obtained/sent to lab.
[2023-12-22 12:14] LABS: Stroke Lab Use COMPLETE
[2023-12-22 12:17] LABS: Appearance Urine Cloudy; Color Urine Yellow; Glucose Urine UA Negative (Negative); Leukocyte Esterase Urine Moderate (2+) (Negative); Nitrite Urine Negative (Negative); PH 7.5 (5.0-9.0); Specific Gravity - Urine >= 1.030 (1.005-1.025); UMIC TRIGGER UACC YES; Urine Blood Negative (Negative); Urine Ketones Negative (Negative); Urine Protein Negative (Neg-Trace)
--- NOTE | 2023-12-22 12:25 | PC.NURSE ---
nursing swallow evaluation completed at this time. no difficulties in swallowing noted. pt able to sit upright/drink water w/o any signs of distress. pt remains confused, unable to answer questions appropriately. face remains symmetrical. no weakness/deficits noted in extremities. plan of care ongoing. call garcia placed within reach.
[2023-12-22 12:32] LABS: Bacteria Urine 4+ (None Seen); Hyaline Casts Urine 0-2 /LPF (0-2); RBC Urine 0-2 /HPF (0-2); Squamous Epithelial Cell Urine 0-2 /HPF (0-2); UACC Culture Trigger YES; WBC Urine 21-50 /HPF (0-5)
--- NOTE | 2023-12-22 12:52 | PC.NURSE ---
bedside speaking w/ pt and family. provider requesting rectal temp to be obtained. pt's family members refusing for rectal temp to be obtained as oral temp was originally the only temperature obtained. pt's family states that straight catheterization was too traumatic for the pt and a rectal temperature is not needed at this time. oral temp obtained displaying 96.4 - MD notified/aware.
--- NOTE | 2023-12-22 12:54 | PC.NURSE ---
Dr. Albarran bedside assessing pt/speaking w/ family at this time.
[2023-12-22 13:07] LABS: C Reactive Protein 0.16 mg/dL (< or = 0.50)
[2023-12-22] MEDS: cefTRIAXone sodium 1 GM in 0.9 % Sodium Chloride 50 ML IV (13:23)
--- NOTE | 2023-12-22 13:26 | P.CNNE_ITS ---
History of Present Illness Data of Consult Service Date: 12/22/23 Primary Care Provider: Nicola Lebron MD [facility] Reason for consult: Difficulty speaking 88 years old woman with frequent UTIs and around that time mental confusion. She was in emergency room in [facility] with similar episode. There was no complaint of fever burning urination but her urine was dirty. She was noted to be either aphasic or confused and this consultation was requested for possibility of stroke. There was no focal weakness. I saw her in emergency room. There was no visible seizure. Review of Systems 2 Review of Systems: No recent cold or flu-like illness PMFSH Past Medical History Medical History Bilateral arm pain Osteoarthritis of knees, bilateral TIA (transient ischemic attack) Seizure disorder Knee osteoarthritis Urinary incontinence GERD (gastroesophageal reflux disease) COPD (chronic obstructive pulmonary disease) Obesity (BMI 30-39.9) Hypertension UTI (urinary tract infection) Hypertriglyceridemia Impaired glucose tolerance Vitamin D deficiency Family History Family History Father No problems noted. Mother Past heart attack Sister Diabetes Brother Prostate cancer Surgical History Surgical History H/O oophorectomy History of abdominal hysterectomy History of bilateral cataract extraction H/O left wrist surgery Social History Social History Housing: House Alcohol intake: never Patient Tobacco Use Status: Never used Tobacco e-Cigarette/Vaping Use: Never Used Second Hand Smoke Exposure: No Advance Directives: No Advance Directives Information Provided: Yes Current occupational status: retired Cognitive needs: Yes (cane) Hearing needs: No Vision needs: Yes (glasses) Meds Allergies Allergy/AdvReac Type Severity Reaction Status Date / Time lisinopril Allergy Unknown cough Verified 12/22/23 11:08 Amlodipine AdvReac Intermediate Leg Uncoded 12/22/23 11:08 swelling Active Medications: Current Medications Ceftriaxone Sodium 1 gm/ (Sodium Chloride) 50 mls @ 100 mls/hr IV ONCE ONE Stop: 12/22/23 13:37 Last Admin: 12/22/23 13:23 Dose: 100 mls/hr Lactated Ringer's (Lr) 500 mls @ 999 mls/hr IV .Q31M MILIND Stop: 12/22/23 13:45 Home Medications ?Medication ?Instructions ?Recorded ?Confirmed ?Last Taken ?Type acetaminophen 500 mg tablet 1,000 mg PO Q6H PRN 02/02/20 10/09/23 Unknown History (Tylenol Extra Strength) multivitamin 1 tab PO DAILY 02/02/20 10/09/23 Unknown History Physical Exam 2 Vital Signs: Vital Signs: Last Vital Signs Temp 96.4 F L 12/22/23 12:49 Pulse 68 12/22/23 12:49 Resp 16 12/22/23 12:49 BP 147/73 H 12/22/23 12:49 Pulse Ox 95 12/22/23 12:49 O2 Del Method Room Air 12/22/23 12:49 BMI result Body Mass Index 31.7 Neuro: Other: She was alert and awake with decreased spontaneity and fluency of speech. Sometime she comprehended and followed command but most of the time her answer did not make sense. There was no facial weakness. Visual santiago were difficult to determine and could not be assess. There was no obvious focal arm or leg weakness. Plantars were flexor. Results Labs 12/22/23 11:29 12/22/23 11:29 Labs: Short CBC 12/22/23 Range/Units 11:29 WBC 7.7 (4.8-10.8) X10*3/uL Hgb 13.9 (12.0-16.0) g/dl Hct 40.9 (37.0-47.0) % Plt Count 244 (160-400) X10*3/uL BMP 12/22/23 11:29 Sodium 139 Potassium 4.6 D Chloride 109 H Carbon Dioxide 23 BUN 13 Creatinine 0.89 Calcium 9.7 Urine 12/22/23 Range/Units 12:09 Urine Color Yellow Urine Appearance Cloudy Urine pH 7.5 (5.0-9.0) Ur Specific [place] >= 1.030 H (1.005-1.025) Urine Protein Negative (Neg-Trace) mg/dL Urine Glucose (UA) Negative (Negative) mg/dL Head CT did not reveal any acute abnormality. Moderately severe microvascular ischemic changes were noted. CTA did not reveal any large vessel occlusion. UA was suggestive of infection. Assessment and Plan (1) Encephalopathy: Qualifiers: Encephalopathy type: unspecified encephalopathy Qualified Code(s): G 93.40 - Encephalopathy, unspecified Status: Acute 88 years old woman with exam suggestive of language abnormality, which is more suggestive of encephalopathy than structural aphasia. Epileptic encephalopathy or toxic encephalopathy or possibilities. My recommendation is to obtain an EEG. In the meantime UTI should also be treated. Procedures Date of Service Date of Service: 12/22/23
[2023-12-22] MEDS: OLANZapine 10 MG VIAL 5 MG IM ×2 (13:32→20:52)
[2023-12-22] MEDS: LORazepam 2 MG/ML VIAL 1 MG IM (13:32)
[2023-12-22 13:40] LABS: B Type Natriuretic Peptide 16 pg/mL (<100)
[2023-12-22] MEDS: Lactated Ringers 500 ML 999 ML IV (13:50)
[2023-12-22 13:58] LABS: Influenza A PCR NEGATIVE (Negative); Influenza B PCR NEGATIVE (Negative); Resp Syncy Virus RNA Qual PCR NEGATIVE (Negative); SARS COV2 PCR INHOUSE NEGATIVE (Negative)
--- NOTE | 2023-12-22 14:26 | PC.NURSE ---
late entry - pt attempting to get out of bed without assistance while being unsteady on her feet. family bedside at this time. pt becoming increasingly agitated while hitting, kicking and scratching staff. MD then bedside. per MD order, 0.25 mg ativan IVP ordered. 1 vial of 2mg ativan dispensed from [facility]. when re-entering the room, it was noted that pt pulled out IV access. pt no longer had IV access at the time. MD remained bedside. per MD verbal order, 1mg ativan via IM administered from original ativan vial that was pulled from [facility]. rest of 1mg ativan from remaining vial as well as syringe that was originally going to be administered via IVP wasted in [facility]. pharmacy called by this RN to verify correct protocol. this RN spoke w/ Jaron in pharmacy to confirm. another 20gIV placed in the right forearm - wrapped w/ gauze for safety precautions. abx/IVF administered per provider order. pt becoming more calm/cooperative s/p medication administration. family members remain bedside. no sob/wob noted. respirations remain even/unlabored. pt pending admission at this time. plan of care ongoing. call garcia placed within reach.
--- NOTE | 2023-12-22 14:36 | PM.IMHP ---
History of Present Illness Date of Service: 12/22/23 Attending physician on admission: [facility] Chief Complaint: Altered mental status Pt is an 88-year-old female with a PMH significant for HTN, HLD, GERD, and hx of CVA 30+ years ago who presents to the ED for evaluation of altered mental status. Patient lives with her daughter who reports she was in her normal state of health earlier this morning except for complaining of a mild headache. Daughter took patient to a hearing aid appointment where she was noted to be confused, not answering questions appropriately, and her speech was off with possible slurring/difficulty speaking. Daughter denies any other symptoms or complaints. No ataxia or unilateral weakness. No facial droop. No fall or tonic-clonic type movements. Daughter notes that patient has had similar symptoms before when she has a UTI. In the ED patient continued to be confused, identifying per daughter as her sister Nadege. Was seen by neurology for possible CVA given hx, sudden onset of symptoms, and dysarthria, but neurology felt symptoms more suggestive of encephalopathy than structured aphasia. Patient then became extremely agitated and belligeraent and required chemical sedation with IM lorazepam olanzapine. In the ED pt was mildly hypothermic at 96.4, tachycardic up to 98, and mildly hypertensive as high as 147/73. Labs were grossly unremarkable. No leukocytosis. Stable H&H. No significant electrolyte abnormalities. Renal function WNL. Troponin negative. CRP WNL. BNP WNL. UA likely consistent with UTI: Positive for leukocyte esterase, wbc's 20-50, 4+ bacteria. Tested negative for flu, RSV, and COVID. 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 CTA of head/neck found scattered chronic small-vessel ischemic changes within periventricular white matter, otherwise no evidence of acute territorial infarct or hemorrhage; no abnormal intracranial mass or enhancement; no stenosis cervical carotid or vertebral arteries; in no intracranial large vessel occlusion. EKG demonstrated normal sinus rhythm with RBBB not present on prior from 06/24/2014. Pt was treated with IVF, olanzapine 5 mg IM, Ativan 1 mg IM, and ceftriaxone. Pt will be admitted to the hospital for treatment and further evaluation of acute encephalopathy in the setting of UTI. Review of Systems Review of Systems: Unable to obtain due to patient's mentation [facility] Medical History Bilateral arm pain Osteoarthritis of knees, bilateral TIA (transient ischemic attack) Seizure disorder Knee osteoarthritis Urinary incontinence GERD (gastroesophageal reflux disease) COPD (chronic obstructive pulmonary disease) Obesity (BMI 30-39.9) Hypertension UTI (urinary tract infection) Hypertriglyceridemia Impaired glucose tolerance Vitamin D deficiency Family History Father No problems noted. Mother Past heart attack Sister Diabetes Brother Prostate cancer Surgical History H/O oophorectomy History of abdominal hysterectomy History of bilateral cataract extraction H/O left wrist surgery Social History Household Members: Family Housing: House Alcohol intake: never Patient Tobacco Use Status: Never used Tobacco Smoked in Last 30 Days: No e-Cigarette/Vaping Use: Never Used Patient Interested in Nicotine Replacement: No Patient Given Instructions on How to Stop Smoking: No Second Hand Smoke Exposure: No Use of substances other than those prescribed or required for medical reasons: No Currently Displaying Signs/Symptoms of Drug Intoxication Withdrawal: No Any prior treatment program specific to substance use: No Advance Directives: No Advance Directives Information Provided: Yes Do you have a plan to hurt others: No Plan Recently lost weight without trying: No Eating poorly because of decreased appetite: No Nutrition Risks: On aspiration precautions Patient : No : No Poor oral hygiene: No service: No Current occupational status: retired Cognitive needs: Yes (cane) Hearing needs: No Vision needs: Yes (glasses) Meds Allergies Allergy/AdvReac Type Severity Reaction Status Date / Time lisinopril Allergy Unknown cough Verified 12/22/23 11:08 Amlodipine AdvReac Intermediate Leg Uncoded 12/22/23 11:08 swelling Home Medications ?Medication ?Instructions ?Recorded ?Confirmed ?Last Taken ?Type acetaminophen 500 mg tablet 1,000 mg PO Q6H PRN Pain 02/02/20 12/22/23 Unknown History (Tylenol Extra Strength) cholecalciferol (vitamin D3) 50 50 mcg PO DAILY 12/22/23 12/22/23 12/22/23 History mcg (2,000 unit) tablet (Vitamin D3) cyanocobalamin (vitamin B-12) 1,000 mcg PO MO 12/22/23 12/22/23 12/22/23 History 1,000 mcg tablet (Vitamin B-12) estradiol 0.01% (0.1 mg/gram) 1 g vaginal TUTH 12/22/23 12/22/23 12/18/23 History vaginal cream mirtazapine 7.5 mg tablet 7.5 mg PO BEDTIME PRN Sleep 12/22/23 12/22/23 Unknown History nystatin 100,000 unit/gram topical 1 appl topical DAILY PRN Fungal 12/22/23 12/22/23 Unknown History powder Infection omeprazole 20 mg capsule,delayed 20 mg PO DAILY@0630 12/22/23 12/22/23 12/22/23 History release Physical Exam Vital Signs and Narrative: Vital Signs: Last Vital Signs Temp 96.6 F L 12/22/23 13:51 Pulse 98 12/22/23 13:51 Resp 18 12/22/23 13:51 BP 134/90 H 12/22/23 13:51 Pulse Ox 99 12/22/23 13:51 O2 Del Method Room Air 12/22/23 13:51 BMI result Body Mass Index 31.7 General: Somnolent but arousable, not answering questions appropriately. In no acute distress Resp: CTA bilaterally CVS: S1, S2, RRR GI: +BS, NT, no distention Skin: Warm, dry Neuro: Cranial nerves II-XII grossly intact bilaterally. Motor grossly intact bilaterally Extremities: No edema Psych: Confused, currently somnolent Results Labs 12/22/23 11:29 12/22/23 11:29 Labs: Laboratory Results - last 24 hr 12/22/23 12/22/23 12/22/23 11:29 11:40 11:44 MCV 89.9 MCH 30.5 MCHC 34.0 RDW 13.0 Plt Count 244 MPV 9.3 L Immature Gran % (Auto) 0.3 Neut % (Auto) 58.8 Lymph % (Auto) 30.9 [place] % (Auto) 8.2 Eos % (Auto) 1.3 Baso % (Auto) 0.5 Lymph # (Auto) 2.4 [place] # (Auto) 0.6 Eos # (Auto) 0.1 Baso # (Auto) 0.0 Abs Immat Gran (auto) 0.02 Absolute Neuts (auto) 4.5 Absolute Nucleated RBC 0.000 Nucleated RBC % (auto) 0.0 PT 10.7 L Whole Blood PT 12.1 INR 0.9 Whole Blood INR 1.0 APTT 26.9 Anion Gap 12 Estim Creat Clear Calc 51.0 Estimated GFR > 60 POC Glucose 92 Random Glucose 109 Calcium 9.7 Troponin I High Sens < 2.7 C-Reactive Protein 0.16 B-Natriuretic Peptide 16 Triglycerides 160 H Cholesterol 163 LDL Cholesterol, Calc 74 HDL Cholesterol 57 Urine Color Urine Appearance Urine pH Ur Specific [place] Urine Protein Urine Glucose (UA) Urine Ketones Urine Blood Urine Nitrite Ur Leukocyte Esterase Urine RBC Urine WBC Ur Squamous Epith Cells Urine Bacteria Hyaline Casts Influenza Type A (PCR) Influenza Type B (PCR) RSV RNA Qual (PCR) SARS-CoV-2 RNA (RT-PCR) 12/22/23 12/22/23 12:09 13:11 MCV MCH MCHC RDW Plt Count MPV Immature Gran % (Auto) Neut % (Auto) Lymph % (Auto) [place] % (Auto) Eos % (Auto) Baso % (Auto) Lymph # (Auto) [place] # (Auto) Eos # (Auto) Baso # (Auto) Abs Immat Gran (auto) Absolute Neuts (auto) Absolute Nucleated RBC Nucleated RBC % (auto) PT Whole Blood PT INR Whole Blood INR APTT Anion Gap Estim Creat Clear Calc Estimated GFR POC Glucose Random Glucose Calcium Troponin I High Sens C-Reactive Protein B-Natriuretic Peptide Triglycerides Cholesterol LDL Cholesterol, Calc HDL Cholesterol Urine Color Yellow Urine Appearance Cloudy Urine pH 7.5 Ur Specific [place] >= 1.030 H Urine Protein Negative Urine Glucose (UA) Negative Urine Ketones Negative Urine Blood Negative Urine Nitrite Negative Ur Leukocyte Esterase Moderate (2+) H Urine RBC 0-2 Urine WBC 21-50 H Ur Squamous Epith Cells 0-2 Urine Bacteria 4+ Hyaline Casts 0-2 Influenza Type A (PCR) NEGATIVE Influenza Type B (PCR) NEGATIVE RSV RNA Qual (PCR) NEGATIVE SARS-CoV-2 RNA (RT-PCR) NEGATIVE Imaging Radiologist's Impressions: Impressions Head CT 12/22/23 11:15 IMPRESSION: 1. 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 2. No intracranial hemorrhage or skull fracture is seen. 3. No evidence of space occupying lesion could be found. 4. The current plain CT scan of the brain shows no diagnostic evidence of acute cerebral infarction. This critical result was discussed with Dr. Jovan Cerda on 12/22/2023 at 1136 hours and it was ascertained that the content and urgency of this report was understood at the time of direct communication. Electronically signed by: Marty Hannon MD 12/22/2023 11:38 AM EDT RP Head/Neck CTA 12/22/23 11:22 IMPRESSION: There are scattered chronic small vessel ischemic changes within the periventricular white matter. Otherwise unremarkable examination. No evidence of acute territorial infarct or hemorrhage. No abnormal intracranial mass or enhancement. The CT angiogram reveals no stenosis of the cervical carotid or vertebral arteries. No intracranial large vessel occlusion. This critical result was discussed with Dr Vinod Rivas at 12:08 PM on 12/22/2023 and it was ascertained that the content and urgency of the report was understood at the time of direct communication. Electronically signed by: Gabriel Kern MD 12/22/2023 12:11 PM EDT RP Assessment and Plan (1) Acute encephalopathy: Status: Acute (2) UTI (urinary tract infection): Status: Acute Plan Pt is an 88-year-old female with a PMH significant for HTN, HLD, GERD, and hx of CVA 30+ years ago who presents to the ED for evaluation of altered mental status. Pt will be admitted to the hospital for treatment and further evaluation of acute encephalopathy in the setting of UTI. Acute encephalopathy Patient with confusion, dysarthria since mid morning; previously in normal state of health CT and CTA of head/neck negative Unclear etiology: Epileptic encephalopathy versus toxic metabolic encephalopathy Will get EEG Nerology consult Seizure precautions Monitor mentation Treat UTI as below Acute UTI UA showing moderate leukocyte esterase, wbc's 21-50, bacteria 4+ Daughter reports similar AMS with previous UTIs Patient received IM Ativan and Zyprexa in the ED No sepsis: HR>90 secondary to agitation; no leukocytosis or tachypnea Patient received IVF and started on broad-spectrum antibiotics in the ED Will treat with ceftriaxone, started 12/22/2023 Follow urine cultures HLD/CVA Continue aspirin, statin HTN Continue losartan GERD Continue PPI Full Code Attending:?Dr. Mclean DVT Prophylaxis: Lovenox Pt will require a hospitalization of at least two nights for treatment of?acute UTI and acute epileptic versus metabolic encephalopathy. Given patient's acute altered mental status with behavioral disturbances, will require hospitalization for administration of IV antibiotics and close monitoring of mental status. Quality Stroke Does the patient have a stroke diagnosis?: No VTE Prior VTE?: No VTE Risk Level:: Medical - moderate - high VTE Device Contraindication: Treatment Not Indicated VTE Drug Contraindication: N/A - Med Ordered
--- NOTE | 2023-12-22 15:07 | PHA.MEDREC ---
Addendum entered by Shannon Monson RPh 12/22/23 15:33: reviewed by [facility]. Original Note: Pharmacy Consult ? Medication Reconciliation Pharmacy has completed the medication reconciliation. Confirmed medications with daughter at bedside. The patient daughter had a list of her moms medications on her phone and she read down the list down and was able to confirm the medications. She was able to confirm her mom is still taking Estradiol vaginal cream two times a week on Tuesdays and and they state she did use it 12/17. Her daughter also confirmed her mom is taking Vitamin B12 once a week on Mondays and she took it this morning along with all her morning medications.
--- NOTE | 2023-12-22 15:10 | PC.NURSE ---
pt remains calm/cooperative s/p chemical restraint. vss and up to date. nsr on the desk monitor. family remains bedside at this time. pending admission/waiting for bed assignment. plan of care ongoing. call garcia placed within reach.
--- NOTE | 2023-12-22 15:18 | PC.NURSE ---
repeat oral temp continues to be low when obtaining updated vital signs. otherwise vss and up to date. nsr on the account development associate. rectal temp obtained displaying 98.0. pt also incontinent of urine. pericare performed. new pads applied. pt turned repositioned/to comfort.
[2023-12-22] MEDS: 0.9 % Sodium Chloride Flush 3 ML SYRINGE IVFLUSH (16:46)
[2023-12-22] MEDS: Enoxaparin Sodium 40 MG/0.4 ML SYRINGE SUBCUT (16:46)
--- NOTE | 2023-12-22 19:01 | PC.NURSE ---
received report from Adeline AVILA, assume care of pt at this time
[2023-12-22] MEDS: Mirtazapine 7.5 MG TABLET PO (20:52)
--- NOTE | 2023-12-22 20:52 | PC.NURSE ---
pt very agiated, keeps trying to get out of the bed. daughter at bedside, states she needs something, Dr Madrigal aware and in room
--- NOTE | 2023-12-22 22:06 | PC.NURSE ---
pt is restig quiestly on strethcer at this time, daughter at bedside,
[2023-12-23] VITALS (7 sets, daily range): BP systolic 115–141; BP diastolic 58–65; PULSE 58–99; RESP 16–23; TEMP 36.1–39.3; O2SAT 90–99
--- NOTE | 2023-12-23 | EEG_ITS ---
This is a 16-channel EEG with an EKG lead. The patient is reported confused during the tracing. Background EEG rhythm is mixed alpha beta with sometime alpha range rhythm of about 10 hertz, 5 to 20 microvolt posteriorly and lower amplitude fast anteriorly. Some lead and muscle artifacts are noted. Photic stimulation and hyperventilation are not performed. No definite sharp wave spikes or paroxysmal tendency noted. IMPRESSION: Mild slowing with no evidence of seizure disorder. MD REKHA Melo/MARGIE / [phone]
--- NOTE | 2023-12-23 00:19 | MHC.EDTECH ---
This tech took over care of patient at 2300,patient was found INCONT of urine and stool,pullup was on patient at this time,all linen was full of urine,this tech and Lead tech Virgil Leonard ,and kevin assisted with complete bed change. pt found to be very warm, rectal temp taken and was 102.7, continuous rectal temp now in place and is 102.9, purewick applied. pt placed in hospital bed for comfort. daughter at bedside. corporate event planner and CC as well as MARGARITA antonio made aware.
[2023-12-23] MEDS: Acetaminophen 1,000 MG/100 ML PIGGYBACK 400 MG IV (00:21)
[2023-12-23] MEDS: Albumin Human 25 % 100 ML 133.33 ML IV ×2 (00:22→01:18)
[2023-12-23 00:33] LABS: Lactic Acid 1.7 mmol/L (0.5-2.0)
--- NOTE | 2023-12-23 01:18 | MHC.EDTECH ---
Patient is very restless,was very difficult to obtain a BP,had to take on the patient's RT leg rectal temp is 102.7.daughter at bedside,call garcia in reach
[2023-12-23] MEDS: 0.9 % Sodium Chloride Flush 3 ML SYRINGE IVFLUSH (08:48)
--- NOTE | 2023-12-23 09:33 | MHC.CM.PN ---
IMM 12/23/23, Pt lives with her dtr, her dtr helps her with ADL's, for DME, she has a cane and a walker. PCP confirmed: Dr. Lebron. Dtr is HCP, copy requested. Dtr to transport home at DC. DCP: home with family care. CM to follow and assist with DC plan.
--- NOTE | 2023-12-23 13:21 | HO.PM.IMPN ---
Subjective Subjective Date of Service: 12/23/23 Interval History: f/u on encephalopathy, uti remains confused, somnolent Physical Exam Vital Signs: Vital Signs: Last Vital Signs Temp 97.6 F 12/23/23 11:33 Pulse 58 12/23/23 11:33 Resp 16 12/23/23 11:33 BP 115/58 L 12/23/23 11:33 Pulse Ox 94 12/23/23 11:33 O2 Del Method Room Air 12/23/23 08:00 BMI result Body Mass Index 31.7 Const: Other: General: somnolent, arouses to name Resp: CTA bilateral CVS: S1,S2,RRR GI: +BS, NT, no distention Skin: No rash Neuro: motor grossly intact, moves spontaneously, no focal deficit Psych: appropriate affect Objective Data Active Medications Acetaminophen (Acetaminophen 325 Mg Tablet) 650 mg PO Q6H PRN PRN Reason: Pain, Mild (Pain Scale 1-3), fever or headache Aspirin (Aspirin Enteric Coated 81 Mg Tablet.) 81 mg PO DAILY [facility] Last Admin: 12/23/23 08:49 Dose: Not Given Documented By: DEVIN Non-Admin Reason: Patient Condition Contraindication Benzonatate (Benzonatate 100 Mg Capsule) 100 mg PO TID PRN PRN Reason: Cough Calcium Carbonate (Calcium Carbonate 750 Mg Tab.Chew) 750 mg PO Q4H PRN PRN Reason: Heartburn Cyanocobalamin (Cyanocobalamin (Vitamin B-12) 1,000 Mcg Tablet) 1,000 mcg PO MO [facility] Last Admin: 12/22/23 18:30 Dose: Not Given Documented By: MONO Non-Admin Reason: Patient Refused Enoxaparin Sodium (Enoxaparin Sodium 40 Mg/0.4 Ml Syringe) 40 mg SUBCUT Q24H [facility] Last Admin: 12/22/23 16:46 Dose: 40 mg Documented By: MONO Ceftriaxone Sodium 1 gm/ (Sodium Chloride) 50 mls @ 100 mls/hr IV Q24H [facility] Losartan Potassium (Losartan Potassium 25 Mg Tablet) 25 mg PO DAILY [facility]; Protocol Last Admin: 12/23/23 08:49 Dose: Not Given Documented By: DEVIN Non-Admin Reason: Patient Condition Contraindication Magnesium Hydroxide (Milk Of Magnesia 30 Ml Oral.Susp) 30 ml PO DAILY PRN PRN Reason: Constipation Melatonin (Melatonin 3 Mg Tablet) 6 mg PO BEDTIME PRN PRN Reason: Insomnia Mirtazapine (Mirtazapine 7.5 Mg Tablet) 7.5 mg PO BEDTIME PRN PRN Reason: Sleep Last Admin: 12/22/23 20:52 Dose: 7.5 mg Documented By: SAVANNAH Omeprazole (Omeprazole 20 Mg Capsule.Dr) 20 mg PO DAILY@0630 [facility] Last Admin: 12/23/23 06:23 Dose: Not Given Documented By: JUVE Non-Admin Reason: Patient Asleep Ondansetron HCl (Ondansetron Hcl 4 Mg/2 Ml Vial) 4 mg IVPUSH Q8H PRN PRN Reason: Nausea and Vomiting Pravastatin Sodium (Pravastatin Sodium 20 Mg Tablet) 20 mg PO DAILY [facility] Last Admin: 12/23/23 08:49 Dose: Not Given Documented By: DEVIN Non-Admin Reason: Patient Condition Contraindication Sodium Chloride (0.9 % Sodium Chloride Flush 3 Ml Syringe) 3 ml IVFLUSH QSHIFT [facility] Last Admin: 12/23/23 08:48 Dose: 3 ml Documented By: DEVIN Vitamin D (Cholecalciferol (Vitamin D3) 25 Mcg Tablet) 50 mcg PO DAILY [facility] Last Admin: 12/23/23 08:49 Dose: Not Given Documented By: DEVIN Non-Admin Reason: Patient Condition Contraindication Labs 12/22/23 11:29 12/22/23 11:29 Labs: Laboratory Results - last 24 hr 12/22/23 12/22/23 12/23/23 11:29 13:11 00:17 Lactic Acid 1.7 B-Natriuretic Peptide 16 Influenza Type A (PCR) NEGATIVE Influenza Type B (PCR) NEGATIVE RSV RNA Qual (PCR) NEGATIVE SARS-CoV-2 RNA (RT-PCR) NEGATIVE Microbiology Microbiology Results: Microbiology 12/22/23 Unknown Urine Culture - Preliminary Urine Catheterized - Straight Catheter Culture in progress. Assessment and Plan (1) Acute encephalopathy: Status: Acute (2) Encephalopathy: Status: Acute Plan 88-year-old female with a PMH significant for HTN, HLD, GERD, and hx of CVA 30+ years ago who presents to the ED for evaluation of altered mental status. Pt will be admitted to the hospital for treatment and further evaluation of acute encephalopathy in the setting of UTI. Acute encephalopathy, likely from uti she remains confused, sedated from yesterday's meds (ativan and Zyprexa) CT and CTA of head/neck negative Neurology recommends EEG Seizure precautions Monitor mentation Treat UTI as below Acute UTI--culture pending, no fever -continue Ceftriaxone started 12/22/23 HLD/CVA Continue aspirin, statin HTN Continue losartan GERD Continue PPI FEN: IVF while NPO Full Code Attending:?Dr. Mclean DVT Prophylaxis: Lovenox Need for inpatient: for treatment of?acute UTI and acute epileptic versus metabolic encephalopathy. Given patient's acute altered mental status with behavioral disturbances, will require hospitalization for administration of IV antibiotics and close monitoring of mental status. Quality Stroke Does the patient have a stroke diagnosis?: No VTE Prior VTE?: No VTE Risk Level:: Medical - moderate - high VTE Device Contraindication: Treatment Not Indicated VTE Drug Contraindication: N/A - Med Ordered
[2023-12-23] MEDS: cefTRIAXone sodium 1 GM in 0.9 % Sodium Chloride 50 ML IV (14:15)
[2023-12-23] MEDS: Lactated Ringers 1,000 ML 100 ML IVCONT (14:55)
[2023-12-23] MEDS: Enoxaparin Sodium 40 MG/0.4 ML SYRINGE SUBCUT (16:40)
[2023-12-24] VITALS (7 sets, daily range): BP systolic 117–142; BP diastolic 56–68; PULSE 71–81; RESP 18–20; TEMP 36.1–36.6; O2SAT 92–95
[2023-12-24] MEDS: Lactated Ringers 1,000 ML 100 ML IVCONT (00:06)
[2023-12-24] MEDS: Omeprazole 20 MG CAPSULE.DR PO (05:58)
[2023-12-24] MEDS: Cholecalciferol (Vitamin D3) 25 MCG TABLET 50 MCG PO (07:53)
[2023-12-24] MEDS: Pravastatin Sodium 20 MG TABLET PO (07:53)
[2023-12-24] MEDS: Aspirin Enteric Coated 81 MG TABLET.DR PO (07:53)
[2023-12-24] MEDS: Losartan Potassium 25 MG TABLET PO (07:53)
--- NOTE | 2023-12-24 10:57 | P.PNIM_ITS ---
Subjective Subjective Date of Service: 12/24/23 Interval History: Pt is more awake, alert, talking yet very confused Physical Exam 2 Vital Signs: Vital Signs: Last Vital Signs Temp 97.6 F 12/24/23 07:32 Pulse 73 12/24/23 07:32 Resp 18 12/24/23 07:32 BP 117/56 L 12/24/23 07:32 Pulse Ox 94 12/24/23 07:32 O2 Del Method Room Air 12/24/23 07:32 BMI result Body Mass Index 31.7 General: Alert, talking but confused Resp: CTA bilateral CVS: S1,S2,RRR GI: +BS, NT, no distention Skin: No rash Neuro: motor grossly intact Psych: appropriate affect Const: Other: General: somnolent, arouses to name Resp: CTA bilateral CVS: S1,S2,RRR GI: +BS, NT, no distention Skin: No rash Neuro: motor grossly intact, moves spontaneously, no focal deficit Psych: appropriate affect Objective Data Active Medications Acetaminophen (Acetaminophen 325 Mg Tablet) 650 mg PO Q6H PRN PRN Reason: Pain, Mild (Pain Scale 1-3), fever or headache Aspirin (Aspirin Enteric Coated 81 Mg Tablet.) 81 mg PO DAILY [facility] [place] Last Admin: 12/24/23 07:53 Dose: 81 mg Documented By: DEVIN Benzonatate (Benzonatate 100 Mg Capsule) 100 mg PO TID PRN PRN Reason: Cough Calcium Carbonate (Calcium Carbonate 750 Mg Tab.Chew) 750 mg PO Q4H PRN PRN Reason: Heartburn Cyanocobalamin (Cyanocobalamin (Vitamin B-12) 1,000 Mcg Tablet) 1,000 mcg PO MO [facility] Last Admin: 12/22/23 18:30 Dose: Not Given Documented By: MONO Non-Admin Reason: Patient Refused Enoxaparin Sodium (Enoxaparin Sodium 40 Mg/0.4 Ml Syringe) 40 mg SUBCUT Q24H [facility] Last Admin: 12/23/23 16:40 Dose: 40 mg Documented By: SAJAN Ceftriaxone Sodium 1 gm/ (Sodium Chloride) 50 mls @ 100 mls/hr IV Q24H [facility] Last Infusion: 12/23/23 15:01 Dose: Infused Documented By: SAJAN Losartan Potassium (Losartan Potassium 25 Mg Tablet) 25 mg PO DAILY [facility]; Protocol Last Admin: 12/24/23 07:53 Dose: 25 mg Documented By: DEVIN Magnesium Hydroxide (Milk Of Magnesia 30 Ml Oral.Susp) 30 ml PO DAILY PRN PRN Reason: Constipation Melatonin (Melatonin 3 Mg Tablet) 6 mg PO BEDTIME PRN PRN Reason: Insomnia Mirtazapine (Mirtazapine 7.5 Mg Tablet) 7.5 mg PO BEDTIME PRN PRN Reason: Sleep Last Admin: 12/22/23 20:52 Dose: 7.5 mg Documented By: SAVANNAH Omeprazole (Omeprazole 20 Mg Capsule.Dr) 20 mg PO DAILY@0630 [facility] [place] Last Admin: 12/24/23 05:58 Dose: 20 mg Documented By: SPENCER Ondansetron HCl (Ondansetron Hcl 4 Mg/2 Ml Vial) 4 mg IVPUSH Q8H PRN PRN Reason: Nausea and Vomiting Pravastatin Sodium (Pravastatin Sodium 20 Mg Tablet) 20 mg PO DAILY [facility] [place] Last Admin: 12/24/23 07:53 Dose: 20 mg Documented By: DEVIN Sodium Chloride (0.9 % Sodium Chloride Flush 3 Ml Syringe) 3 ml IVFLUSH QSHIFT [facility] [place] Last Admin: 12/24/23 07:56 Dose: Not Given Documented By: DEVIN Non-Admin Reason: IV Running Vitamin D (Cholecalciferol (Vitamin D3) 25 Mcg Tablet) 50 mcg PO DAILY [facility] [place] Last Admin: 12/24/23 07:53 Dose: 50 mcg Documented By: DEVIN Labs 12/22/23 11:29 12/22/23 11:29 Microbiology Microbiology Results: Microbiology 12/22/23 Unknown Urine Culture - Preliminary Urine Catheterized - Straight Catheter Gram negative neil Enterococcus/Streptococcus sp 12/23/23 00:17 Blood Culture - Preliminary Blood - Venous No growth after 24 hours. Assessment and Plan (1) Acute encephalopathy: Status: Acute (2) Encephalopathy: Status: Acute Plan 88-year-old female with a PMH significant for HTN, HLD, GERD, and hx of CVA 30+ years ago who presents to the ED for evaluation of altered mental status. Pt will be admitted to the hospital for treatment and further evaluation of acute encephalopathy in the setting of UTI. Acute encephalopathy, likely from ut, CT, CTA of H/N negative -treat underlying UTI -Neur rec EEG, done result pending Acute UTI--culture pending, no fever, responding to Abx -culture = Enteroccocus, streptococcus -Pt not septic, and able to take Oral meds, so addZyvox, and wait for sensitivity HLD/CVA Continue aspirin, statin HTN Continue losartan GERD Continue PPI FEN: stop IVF, taking orals Full Code DVT Prophylaxis: Lovenox Need for inpatient: for treatment of?acute UTI and acute epileptic versus metabolic encephalopathy. Given patient's acute altered mental status with behavioral disturbances, will require hospitalization for administration of IV antibiotics and close monitoring of mental status. Quality Stroke Does the patient have a stroke diagnosis?: No VTE Prior VTE?: No VTE Risk Level:: Medical - moderate - high VTE Device Contraindication: Treatment Not Indicated VTE Drug Contraindication: N/A - Med Ordered
[2023-12-24] MEDS: Linezolid 600 MG TABLET PO (12:46)
[2023-12-24] MEDS: cefTRIAXone sodium 1 GM in 0.9 % Sodium Chloride 50 ML IV (12:46)
--- NOTE | 2023-12-24 14:17 | MHC.CM.PN ---
Per rounds and EMR review, pt is not yet medically cleared, she is receiving IV ABX for UTI, and remains confused. DCP is for her to return home where she lives with her daughter.
[2023-12-24] MEDS: Enoxaparin Sodium 40 MG/0.4 ML SYRINGE SUBCUT (16:10)
[2023-12-24] MEDS: 0.9 % Sodium Chloride Flush 3 ML SYRINGE IVFLUSH (16:10)
[2023-12-25] MEDS: Linezolid 600 MG TABLET PO ×2 (00:43→12:40)
[2023-12-25] MEDS: 0.9 % Sodium Chloride Flush 3 ML SYRINGE IVFLUSH ×2 (00:45→09:13)
[2023-12-25 03:26] VITALS: BP 141/63; PULSE 75; RESP 20; TEMP 36.2; O2SAT 92
[2023-12-25] MEDS: Omeprazole 20 MG CAPSULE.DR PO (05:20)
[2023-12-25 07:33] VITALS: BP 131/62; PULSE 72; RESP 20; TEMP 36.2; O2SAT 92
[2023-12-25] MEDS: Pravastatin Sodium 20 MG TABLET PO (09:11)
[2023-12-25] MEDS: Cholecalciferol (Vitamin D3) 25 MCG TABLET 50 MCG PO (09:12)
[2023-12-25] MEDS: Losartan Potassium 25 MG TABLET PO (09:12)
[2023-12-25] MEDS: Aspirin Enteric Coated 81 MG TABLET.DR PO (09:12)
[2023-12-25 10:53] VITALS: BP 131/62; PULSE 72; O2SAT 92
[2023-12-25 11:30] VITALS: BP 129/62; PULSE 83; RESP 20; TEMP 36.2; O2SAT 93
--- NOTE | 2023-12-25 12:17 | P.DS_ITS ---
DS: Providers Provider Date of Service: 12/25/23 Date of admission: 12/22/23 15:33 Date of discharge: 12/25/23 Primary care physician: Nicola Lebron MD Consults: 12/22/23 15:49 Consult to Neurology Routine Consulting Provider: [facility] Reason for consultation: Encephalopathy vs CVA Has provider been notified: Yes Attending physician on discharge: Darian Hull Discharging clinician: Emily Yates DS: Diagnosis Discharge Diagnosis (1) Acute encephalopathy: Status: Acute (2) UTI (urinary tract infection): Status: Acute DS: Summary Hospital Course Hospital Course: From H&P on the day of admission Pt is an 88-year-old female with a PMH sig nificant for HTN, HLD, GERD, and hx of CVA 30+ years ago who presents to the ED for evaluation of altered mental status. Patient lives with her daughter who reports she was in her normal state of health earlier this morning except for complaining of a mild headache. Daughter took patient to a hearing aid appointment where she was noted to be confused, not answering questions appropriately, and her speech was off with possible slurring/difficulty speaking. Daughter denies any other symptoms or complaints. No ataxia or unilateral weakness. No facial droop. No fall or tonic-clonic type movements. Daughter notes that patient has had similar symptoms before when she has a UTI. In the ED patient continued to be confused, identifying per daughter as her sister Nadege. Was seen by neurology for possible CVA given hx, sudden onset of symptoms, and dysarthria, but neurology felt symptoms more suggestive of encephalopathy than structured aphasia. Patient then became extremely agit ated and belligeraent and required chemical sedation with IM lorazepam olanzapine. In the ED pt was mildly hypothermic at 96.4, tachycardic up to 98, and mildly hypertensive as high as 147/73. Labs were grossly unremarkable. No leukocytosis. Stable H&H. No significant electrolyte abnormalities. Renal function WNL. Troponin negative. CRP WNL. BNP WNL. UA likely consistent with UTI: Positive for leukocyte esterase, wbc's 20-50, 4+ bacteria. Tested negative for flu, RSV, and COVID. 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 CTA of head/neck found scattered chronic small-vessel ischemic changes within periventricular white matter, otherwise no evidence of acute territorial infarct or hemorrhage; no abnormal intracranial mass or enhancement; no stenosis cervical carotid or vertebral arteries; in no intracranial large vessel occlusion. EKG demonstrated normal sinus rhythm with RBBB not present on prior from 06/24/2014. Pt was treated with IVF, olanzapine 5 mg IM, Ativan 1 mg IM, and ceftriaxone. Pt will be admitted to the hospital for treatment and further evaluation of acute encephalopathy in the setting of UTI. Acute toxic metabolic encephalopathy due to underlying UTI. CT and CTA of head and neck negative for acute changes. Improving with treatment of UTI. Seen by neurology who recommended EEG which was obtained and was negative. Urine cultures growing Enterobacter cloacae complex and Streptococcus viridans. She will be discharged to complete course of oral antibiotics. Physical therapy evaluated her and recommended home with services. Time Attestation Discharge Coordination Time (in mins): 36 Quality: Safe Use of Opioids Does Pt have an Active Cancer Diagnosis on the Problem List?: No Quality: Stroke Does the patient have a stroke diagnosis?: No Physical Exam Vital Signs: Vital Signs: Last Vital Signs Temp 97.2 F 12/25/23 11:30 Pulse 83 12/25/23 11:30 Resp 20 12/25/23 11:30 BP 129/62 12/25/23 11:30 Pulse Ox 93 12/25/23 11:30 O2 Del Method Room Air 12/25/23 11:30 BMI result Body Mass Index 31.7 Const: Nutritional Appearance: well nourished HEENT: Head: Yes normocephalic and Yes atraumatic Eyes: Sclerae: sclerae normal Chest: Chest palpation & inspection: normal inspection of the chest Resp: Effort & Inspection: normal respiratory effort and no respiratory distress Cardio: Rate: regular rate GI: Palpation (GI): Soft to palpation and nontender Skin: General skin exam: no rashes or lesions noted Neuro: Cranial nerves: Yes CN's II-XII intact bilaterally DS: Data Data Completed and Pending Labs on day of discharge: Preliminary micro results at discharge 12/23/23 08:50 Blood Culture - Preliminary Blood - Venous No growth after 48 hours. 12/23/23 00:17 Blood Culture - Preliminary Blood - Venous No growth after 48 hours. Discharge Plan Discharge Anticipated Discharge Date/Time: 12/25/23 12:25 Patient Disposition: Home Health Service Discharge Diagnosis: Acute encephalopathy due to UTI Referrals: Josr GONZALEZ [Outside] - 1 Week Po,Nicola Emery MD [Primary Care Provider] - 1 Week Discharge Medications: New cefuroxime axetil 500 mg tablet 500 mg PO Q12H 5 Days Qty: 10 0RF levofloxacin 250 mg tablet 250 mg PO Q24H 5 Days Qty: 5 0RF Continued (DME) reclining lift chair. See Rx Instructions .Route .MEDSUPPLY Qty: 1 0RF Rx Instructions: As directed (DME) PAIN RELIEVING PATCHES WITH HEAT See Rx Instructions .Route .MEDSUPPLY Qty: 60 12RF Rx Instructions: As directed aspirin 81 mg tablet,delayed release (DR/EC) 81 mg PO DAILY Qty: 90 3RF pravastatin 20 mg tablet 20 mg PO DAILY Qty: 90 2RF (DME) gloves medium See Rx Instructions .Route .MEDSUPPLY Qty: 1 12RF Rx Instructions: As directed (DME) Contour plus bladder pads See Rx Instructions .Route .MEDSUPPLY Qty: 3 12RF Rx Instructions: As directed (DME) gloves large See Rx Instructions .Route .MEDSUPPLY Qty: 1 12RF Rx Instructions: As directed (DME) underwear pull ups 3 per day XL See Rx Instructions .Route .MEDSUPPLY Qty: 6 12RF Rx Instructions: As directed (DME) Pad liners for bed and chair See Rx Instructions .Route .MEDSUPPLY Qty: 6 12RF Rx Instructions: As directed losartan 25 mg tablet 25 mg PO DAILY Qty: 30 1RF (DME) flushable toilet wipes See Rx Instructions .Route .MEDSUPPLY Qty: 5 12RF Rx Instructions: As directed omeprazole 20 mg capsule,delayed release(DR/EC) 20 mg PO DAILY@0630 nystatin 100,000 unit/gram powder 1 appl topical DAILY PRN (Reason: Fungal Infection) estradiol 0.01 % (0.1 mg/gram) cream 1 g vaginal TUTH mirtazapine 7.5 mg tablet 7.5 mg PO BEDTIME PRN (Reason: Sleep) cyanocobalamin (vitamin B-12) [Vitamin B-12] 1,000 mcg Tablet 1,000 mcg PO MO cholecalciferol (vitamin D3) [Vitamin D3] 50 mcg (2,000 unit) Tablet 50 mcg PO DAILY acetaminophen [Tylenol Extra Strength] 500 mg tablet 1,000 mg PO Q6H PRN (Reason: Pain) (DME) EASY RISE WALKER See Rx Instructions .Route .MEDSUPPLY Qty: 1 0RF Rx Instructions: As directed (DME) BATH AND SHOWER STEP WITH HANDLE See Rx Instructions .Route .MEDSUPPLY Qty: 1 0RF Rx Instructions: As directed Discharge Orders: Discharge Order (Routine); Ordered 12/25/23 Ordered By: Emily Yates Activity on Discharge: As tolerated Stand Alone Forms: Patient Portal Discharge page Print Language: Senegalese Care Plan Goals: See below Health Concerns: Acute encephalopathy due to underlying UTI in the setting of dementia Plan of Treatment: Complete course of antibiotics as prescribed Call to schedule a follow-up appointment with your PCP He will be discharged home with home physical therapy services and VNA services Assessment: See discharge summary
--- NOTE | 2023-12-25 12:26 | W.MHC.F2F ---
Service Date Service Date: 12/25/23 Encounter Date of encounter: 12/25/23 Reasons for Services Signs and symptoms assessed: Needs residential for medication management, new antibiotics UTI Reason for physical therapy: home safety and mobility and therapeutic exercises Overseeing Care: Nicola Lebron Homebound: Leaving the home is medically contraindicated at this time without the asist of a device and/or another person due th the listed conditions above and below. Reason homebound: poor balance / fall risk Certification: Based on the above findings, I certify that this patient is confined to the home and needs intermittent residential care, physical therapy and/or speech therapy, or continues to need occupational therapy. The patient is under my care, and I have initiated the establishment of the plan of care. The patient will be followed by a physician who will periodically review the plan of care. Time Spent With Patient Time: Total time managing care of this patient today ____ minutes.
--- NOTE | 2023-12-25 13:16 | MHC.CM.PN ---
Pt has been medically cleared for DC. She will go home via S today and have home care services from [facility].
[2023-12-25 15:23] VITALS: BP 132/70; PULSE 76; RESP 18; TEMP 36.7; O2SAT 95
== END 2023-12-25 16:00 | disposition home health service (06) | DRG 689 ==
LOC: HO.ED 13:37 → HO.EDOVER 15:52 → HO.IMC 12-23 00:54
PROVIDERS: Physician Assistant; Student in an Organized Health Care Education/Training Program; Admitting Provider Student in an Organized Health Care Education/Training Program; Emergency Provider Emergency Medicine; PCP Internal Medicine; Visit Provider Physician Assistant Medical
DX: N39.0 Urinary tract infection, site not specified (principal); G92.8 Other toxic encephalopathy; I10 Essential (primary) hypertension; E78.5 Hyperlipidemia, unspecified; K21.9 Gastro-esophageal reflux disease without esophagitis; B95.7 Other staphylococcus as the cause of diseases classified elsewhere; B96.89 Other specified bacterial agents as the cause of diseases classified elsewhere; Z20.822 Contact with and (suspected) exposure to COVID-19; Z86.73 Personal history of transient ischemic attack (TIA), and cerebral infarction without residual deficits; Z79.899 Other long term (current) drug therapy
CPT/HCPCS: 0241U; 36415; 70450; 70496; 70498; 80048; 80061; 81001; 82947; 83605; 83880; 84484; 85025; 85610; 85730; 86140; 87040; 87086; 87088; 87186; 93005; 95816; 97162; 99285; J0131; J0696; J1650; J2060; J2359; J7120; P9047; Q9967

== ENCOUNTER → 2023-12-22 11:18 | Outpatient (BNV) | payer OTHER, SELFPAY | PROVIDERS: Emergency Provider Emergency Medicine; PCP Internal Medicine; Visit Provider Psychiatry & Neurology Neurology | DX: G93.40 Encephalopathy, unspecified (principal) | CPT/HCPCS: 99222 ==

== ENCOUNTER → 2023-12-22 15:33 | Outpatient (BNV) | payer OTHER, SELFPAY | PROVIDERS: Admitting Provider Student in an Organized Health Care Education/Training Program; Emergency Provider Emergency Medicine; PCP Internal Medicine; Visit Provider Student in an Organized Health Care Education/Training Program | DX: G93.40 Encephalopathy, unspecified (principal); N39.0 Urinary tract infection, site not specified | CPT/HCPCS: 99223; 99232; 99239; 99499; G0180 ==

== ENCOUNTER 2024-02-03 12:10 | Outpatient (REF) | payer OTHER, SELFPAY ==
[2024-02-03 12:18] LABS: Appearance Urine Turbid; Color Urine Yellow; Glucose Urine UA Negative (Negative); Leukocyte Esterase Urine Negative (Negative); Nitrite Urine Positive (Negative); Specific Gravity - Urine 1.025 (1.005-1.025); UMIC TRIGGER UACC YES; Urine Blood Negative (Negative); Urine Ketones Negative (Negative); Urine Protein Trace mg/dL (Neg-Trace)
[2024-02-03 12:28] LABS: Bacteria Urine 4+ (None Seen); Hyaline Casts Urine 0-2 /LPF (0-2); UACC Culture Trigger YES; WBC Urine 0-5 /HPF (0-5)
== END 2024-02-03 12:11 | disposition home or self-care (01) ==
LOC: HO.LNP 12:10
PROVIDERS: Visit Provider Internal Medicine
DX: R30.0 Dysuria (principal)
CPT/HCPCS: 81001; 87086

== ENCOUNTER 2024-02-05 14:17 | Outpatient (AMB) | payer OTHER, SELFPAY ==
[2024-02-05 14:33] VITALS: BP 134/72; PULSE 90; O2SAT 96; BMI 30.9
--- NOTE | 2024-02-05 14:33 | MHC.PC.OV ---
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: No Accompanied by: Daughter Allergies lisinopril Allergy (Unknown, Verified 02/05/24 14:39) cough Amlodipine Adverse Reaction (Intermediate, Uncoded 02/05/24 14:39) Leg swelling Medication List - Last Reconciled 02/05/24 by Nicola Lebron MD acetaminophen (Tylenol Extra Strength) 1,000 mg PO Q6H PRN aspirin 81 mg PO DAILY [BATH AND SHOWER STEP WITH HANDLE As directed] cefuroxime axetil 500 mg PO Q12H 5 days cholecalciferol (vitamin D3) (Vitamin D3) 50 mcg PO DAILY [Contour plus bladder pads As directed] cyanocobalamin (vitamin B-12) (Vitamin B-12) 1,000 mcg PO MO [EASY RISE WALKER As directed] estradiol 0.01%(0.1mg/gram) 1 g vaginal TUTH [flushable toilet wipes As directed] [gloves As directed] [gloves As directed] levofloxacin 250 mg PO Q24H 5 days losartan 25 mg PO DAILY mirtazapine 7.5 mg PO BEDTIME PRN nitrofurantoin macrocrystal 50 mg PO BEDTIME nystatin 1 appl topical DAILY PRN omeprazole 20 mg PO DAILY@0630 [Pad liners for bed and chair As directed] [PAIN RELIEVING PATCHES WITH HEAT As directed] pravastatin 20 mg PO DAILY [reclining lift chair. As directed] [underwear pull ups 3 per day As directed] Tobacco use date assessed: 04/10/23 Fall risk assessment: 2 + Falls in past year (slipped out of chair) Last assessed Fall Risk: 02/05/24 Dental Screening Dental Screen Date: 04/10/23 HPI SUE D/C 12/25/23 HPI Details 88-year-old obese female with impaired glucose tolerance hypertension hypercholesterolemia COPD GERD generalized anxiety disorder and hyperparathyroidism coming in for follow-up. Last seen in 10/11/2023. Patient was in in the ER recently December 21 for confusion secondary to urinary tract infection. 11/11/2023 seen Orthopedics for bilateral knee pain and had injection done cortisone. Patient also saw Endocrinology in September 2023 hyperparathyroidism. Patient came in with the daughter and discussion about the recurrence of the urinary tract infection. Discussed about options as well as further workup. Referral to Urology done and discussion about chronic prophylactic antibiotics. This was prescribed . Otherwise discussion about osteoarthritis also that this will not disappear and continued use of anti-inflammatory gels will help because of the safety. TCM TCM Information Date of Discharge 12/25/23 Discharged From [facility] Medical History (Updated 02/05/24 @ 14:53 by Nicola Lebron MD) Altered mental status Acute encephalopathy Bilateral arm pain Osteoarthritis of knees, bilateral TIA (transient ischemic attack) Seizure disorder Knee osteoarthritis Urinary incontinence GERD (gastroesophageal reflux disease) COPD (chronic obstructive pulmonary disease) Obesity (BMI 30-39.9) Hypertension UTI (urinary tract infection) Hypertriglyceridemia Impaired glucose tolerance Vitamin D deficiency Surgical History H/O oophorectomy History of abdominal hysterectomy History of bilateral cataract extraction H/O left wrist surgery Family History Father No problems noted. Mother Past heart attack Sister Diabetes Brother Prostate cancer Social History Household Members: Family Housing: House Alcohol intake: never Patient Tobacco Use Status: Never used Tobacco Tobacco use type: Cigarette e-Cigarette/Vaping Use: Never Used Second Hand Smoke Exposure: No service: No Current occupational status: retired Cognitive needs: Yes (cane) Hearing needs: No Vision needs: Yes (glasses) Questionnaire Thrive Questionnaire Date Thrive assessed: 12/23/23 RUBINA-7 AMB Questionnaire RUBINA-7 Date RUBINA - 7 assessed: 04/10/23 Source: Developed by Drs. Gabriel Jiménez, Krupa Paez, Jesus Quintana and colleagues, with an educational akila from [employer]. Physical exam (Primary Care) Vital Signs: Last Vital Signs Pulse 90 02/05/24 14:33 BP 134/72 02/05/24 14:33 Pulse Ox 96 02/05/24 14:33 Oxygen Delivery Method Room Air 02/05/24 14:33 BMI result Body Mass Index 30.9 Tobacco/Smoking Status: Tobacco use Status Tobacco use date assessed 04/10/23 02/05/24 14:42 Patient Tobacco Use Status Never used Tobacco 02/05/24 14:42 Tobacco use type Cigarette 02/05/24 14:42 e-Cigarette/Vaping Use Never Used 02/05/24 14:42 Thrive Assessment: Date of Thrive Assessment Date Thrive assessed 12/23/23 02/05/24 14:42 Const General: alert; No acute distress Eyes Conjunctivae: conjunctivae normal Resp Auscultation: clear to auscultation bilaterally Cardio Rate: regular rate Rhythm: regular rhythm GI Inspection: Yes normal to inspection Extrem General: Yes normal to inspection and No edema Coding Level of Care Code Est Pt Level 4 (84406) Diagnoses Hyperparathyroidism E21.3 Essential hypertension I10 Hypertension type: essential hypertension Obesity (BMI 30-39.9) E66.9 Pulmonary emphysema, unspecified emphysema type J43.9 COPD type: emphysema Emphysema type: unspecified Gastroesophageal reflux disease without esophagitis K21.9 Esophagitis presence: without esophagitis Seizure disorder G40.909 Recurrent UTI N39.0 Assessment & Plan Assessment & Plan (1) Hyperparathyroidism: Code(s): E21.3 - Hyperparathyroidism, unspecified Category: Medical Plan: Patient has seen endocrinology and continue to monitor (2) Hypertension: Code(s): I10 - Essential (primary) hypertension Category: Medical Qualifiers: Hypertension type: essential hypertension Qualified Code(s): I10 - Essential (primary) hypertension Plan: Continue with blood pressure medication. Decrease salt intake and exercise on losartan 25 mg once a day (3) Obesity (BMI 30-39.9): Code(s): E66.9 - Obesity, unspecified Category: Medical Plan: Diet and exercise (4) COPD (chronic obstructive pulmonary disease): Code(s): J44.9 - Chronic obstructive pulmonary disease, unspecified Category: Medical Qualifiers: COPD type: emphysema Emphysema type: unspecified Qualified Code(s): J43.9 - Emphysema, unspecified Plan: Stable (5) GERD (gastroesophageal reflux disease): Code(s): K21.9 - Gastro-esophageal reflux disease without esophagitis Category: Medical Qualifiers: Esophagitis presence: without esophagitis Qualified Code(s): K21.9 - Gastro-esophageal reflux disease without esophagitis Plan: Avoid the foods that causes that usually spicy foods, tomato products, juices, coffee, soda and foods that your sensitive to. After eating do not lie down, allow 3-4 hours before in lie down. And keep the head of bed above 30 degrees to avoid the acid from going up. (6) Seizure disorder: Code(s): G40.909 - Epilepsy, unspecified, not intractable, without status epilepticus Category: Medical Plan: Stable (7) Recurrent UTI: Code(s): N39.0 - Urinary tract infection, site not specified Category: Medical Plan: advised referral to Urology and started on antibiotic prophylaxix Orders: Orders CT abdomen pelvis wo IV con Today N39.0 - Urinary tract infection, site not specified Referrals Urology Referral N39.0 - Urinary tract infection, site not specified Medications: New nitrofurantoin macrocrystal must administer with a meal/food 50 mg PO BEDTIME 30 caps 1RF N39.0 - Urinary tract infection, site not specified Changed From ketoconazole 2% 1 appl topical DAILY N39.0 - Urinary tract infection, site not specified To ketoconazole 2% apply to under the breast and under belly fold topically daily; 60 grams 2RF N39.0 - Urinary tract infection, site not specified
== END 2024-02-05 15:14 | disposition home or self-care (01) ==
PROVIDERS: PCP Internal Medicine; Visit Provider Internal Medicine
DX: J43.9 Emphysema, unspecified (principal); E21.3 Hyperparathyroidism, unspecified; G40.909 Epilepsy, unspecified, not intractable, without status epilepticus; E66.9 Obesity, unspecified; Z68.30 Body mass index [BMI] 30.0-30.9, adult; I10 Essential (primary) hypertension; K21.9 Gastro-esophageal reflux disease without esophagitis; N39.0 Urinary tract infection, site not specified

== ENCOUNTER → 2024-02-05 14:17 | Outpatient (BNVA) | payer OTHER, SELFPAY | PROVIDERS: PCP Internal Medicine; Visit Provider Internal Medicine | DX: E21.3 Hyperparathyroidism, unspecified (principal); I10 Essential (primary) hypertension; E66.9 Obesity, unspecified; J43.9 Emphysema, unspecified; K21.9 Gastro-esophageal reflux disease without esophagitis; N39.0 Urinary tract infection, site not specified; G40.909 Epilepsy, unspecified, not intractable, without status epilepticus | CPT/HCPCS: 99212 ==

== ENCOUNTER 2024-02-09 12:38 | Outpatient (REF) | payer OTHER, SELFPAY ==
--- NOTE | 2024-02-10 08:41 | MHC.AU.HA3 ---
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 Repair Warranty: 07/06/2023 Selenium Plant Operator Loss and Damage Warranty: 07/06/2023 [facility] Service Plan: 06/12/21 Battery Size: Rechargeable Earmold/Dome/CShell/SlimTip: Type of Wax Guard: HEAR CLEAR Dispensed By: [facility] Date of Fittin06/12/2020 Left Ear: Joel, , Color, Serial Number: Abraham Martinez ITC R [id number] Selenium Plant Operator Repair Warranty: 07/06/2023 Selenium Plant Operator Loss and Damage Warranty: 07/06/2023 [facility] Service Plan: 06/12/21 Battery Size: Rechargeable Earmold/Dome/CShell/SlimTip: Type of Wax Guard: Hear Clear Dispensed By: [facility] Date of Fittin06/12/2020 Follow-Up Summary: Seen for evaluation. Accompanied by daughter, Cecelia. Nisreen has CCA for which we are not in network for hearing aids or hearing aid services at this time. Daughter brought a letter from [facility] which she believes to be authorization for new hearing aids, hearing aid repair, or hearing aid services from any out of network provider. They report Nisreen has been wearing her old Phonak aids as she has been having trouble with the Abraham aids not working. Cecelia expressed interest in new hearing aids and reported that they had been trying to get new hearing aids through [facility]- that a provider came to the house and took impressions but the hearing aids never came, she has been in touch with [facility] about the situation and that is what led her to try to get authorization for hearing aid services elsewhere. Cleaned and checked Abraham aids- wax in and behind wax guards noted. Vacuumed baggagemaster ports. Replaced wax guards and alexsander covers. Both aids amplifying clearly after cleaning. Nisreen reports improvement. Did not recommend new amplification at this time as Abraham aids are only 3.5 years old and amplifying clearly after cleaning. Reviewed maintenance, advising wax guard change rather than trying to clean wax guards with brush. Cecelia indicated she may still follow up with [facility] about getting the new hearing aids they were expecting. Cecelia wanted to be sure that Nisreen could return here for services/ QUINTANILLA needs as needed, referring to date range 01/07/2024-07/07/2024 on the letter. Advised the procedure code indicated in the letter is vague ([id number]) and would require further investigation. Recommendations: Recommendations: Consult [facility] regarding coverage for HAs/ QUINTANILLA services as needed. Diagnosis Code(s): Primary Diagnosis: H90.3 Bilateral Sensorineural Hearing Loss Signature: Provider: Anahy Rowland, CCC-A
== END 2024-02-09 12:39 | disposition home or self-care (01) ==
LOC: HO.SH 12:38
PROVIDERS: Visit Provider Internal Medicine
DX: Z01.118 Encounter for examination of ears and hearing with other abnormal findings (principal); H91.90 Unspecified hearing loss, unspecified ear
CPT/HCPCS: 92557; 92593; 99499

== ENCOUNTER 2024-02-09 14:06 | Outpatient (REF) | payer SELFPAY | END 2024-02-09 14:07 | disposition home or self-care (01) | LOC: HO.HAP 14:06 | PROVIDERS: Visit Provider Internal Medicine | DX: Z46.1 Encounter for fitting and adjustment of hearing aid (principal) | CPT/HCPCS: V5267 ==

== ENCOUNTER 2024-02-18 14:25 | Outpatient (AMB) | payer OTHER, SELFPAY ==
--- NOTE | 2024-02-18 14:29 | A.OFFPC_ITS ---
Intake Visit Reasons: Discuss Medications Allergies lisinopril Allergy (Unknown, Verified 02/18/24 14:29) cough Amlodipine Adverse Reaction (Intermediate, Uncoded 02/18/24 14:29) Leg swelling Tobacco use date assessed: 04/10/23 Fall risk assessment: No Falls in past year Last assessed Fall Risk: 02/18/24 Dental Screening Dental Screen Date: 04/10/23 HPI Discuss Medications HPI Details 88-year-old obese female with impaired g lucose tolerance hypercholesterolemia hypertension COPD GERD seizure disorder cognitive impairment with generalized anxiety disorder calling in for an Telehealth. Patient has had recurrent UTI and was requested to have a CT scan of the abdomen.. Patient was last seen in February 04. Patient was given the option of taking antibiotics daily for UTI prophylaxis, urology evaluation (March 2024) or treat as needed.concern last weekend had slurring of speech- states became landis. question . Patient was concerned about the nitrofurantoin interacting with mirtazapine. So discussed about a different antibiotic to take which is cephalexin in the guidelines for prophylactic antibiotic. But patient then was hesitant with taking antibiotics due to patient having diarrhea this time so change in decision again on holding the antibiotic doing another urinalysis and see. [facility] Medical History (Updated 02/05/24 @ 14:53 by Nicola Lebron MD) Altered mental status Acute encephalopathy Bilateral arm pain Osteoarthritis of knees, bilateral TIA (transient ischemic attack) Seizure disorder Knee osteoarthritis Urinary incontinence GERD (gastroesophageal reflux disease) COPD (chronic obstructive pulmonary disease) Obesity (BMI 30-39.9) Hypertension UTI (urinary tract infection) Hypertriglyceridemia Impaired glucose tolerance Vitamin D deficiency Surgical History H/O oophorectomy History of abdominal hysterectomy History of bilateral cataract extraction H/O left wrist surgery Family History Father No problems noted. Mother Past heart attack Sister Diabetes Brother Prostate cancer Social History Household Members: Family Housing: House Alcohol intake: never Patient Tobacco Use Status: Never used Tobacco Tobacco use type: Cigarette e-Cigarette/Vaping Use: Never Used Second Hand Smoke Exposure: No service: No Current occupational status: retired Cognitive needs: Yes (cane) Hearing needs: No Vision needs: Yes (glasses) Questionnaire Thrive Questionnaire Date Thrive assessed: 12/23/23 RUBINA-7 AMB Questionnaire RUBINA-7 Date RUBINA - 7 assessed: 04/10/23 Source: Developed by Drs. Gabriel Jiménez, Krupa Paez, Jesus Quintana and colleagues, with an educational akila from [employer]. Physical exam (Primary Care) Tobacco/Smoking Status: Tobacco use Status Tobacco use date assessed 04/10/23 02/18/24 14:29 Patient Tobacco Use Status Never used Tobacco 02/18/24 14:29 Tobacco use type Cigarette 02/18/24 14:29 e-Cigarette/Vaping Use Never Used 02/18/24 14:29 Thrive Assessment: Date of Thrive Assessment Date Thrive assessed 12/23/23 02/18/24 14:29 Telehealth Telehealth Location of provider rendering services: practice address Location of patient: address on file Patient Identification confirmed using: Name, : Yes Telehealth method: voice only Patient verbally consented to treatment: Yes Patient verbally consented to billing insurance company: Yes Patient informed of any privacy concerns related to visit: Yes Minutes spent on Phone/Video with Pt.: 10 Coding Level of Care Code Tele Est Pt Level 3 (76250) Diagnoses Recurrent UTI N39.0 Assessment & Plan Assessment & Plan (1) Recurrent UTI: Code(s): N39.0 - Urinary tract infection, site not specified Category: Medical Plan: Discussed with daughter with regards to this would hold off from nitrofurantoin due to interaction with mirtazapine. Cephalexin prescription sent in but patient would like to hold off due to diarrhea right now from multiple antibiotics. Orders: Orders UA CC w/rflx Micro + Cult Today N39.0 - Urinary tract infection, site not specified, R30.0 - Dysuria Medications: New cephalexin 250 mg PO .QD 30 tabs 0RF N39.0 - Urinary tract infection, site not specified Discontinued levofloxacin Discontinued Reason: Doctor's Order 250 mg PO Q24H 5 days 5 tabs 0RF nitrofurantoin macrocrystal must administer with a meal/food Discontinued Reason: Patient Refused 50 mg PO BEDTIME 30 caps 1RF N39.0 - Urinary tract infection, site not specified
== END 2024-02-18 15:07 | disposition home or self-care (01) ==
LOC: HO.HMCH 14:25
PROVIDERS: PCP Internal Medicine; Visit Provider Internal Medicine
DX: N39.0 Urinary tract infection, site not specified (principal)

== ENCOUNTER → 2024-02-18 14:25 | Outpatient (BNVA) | payer SELFPAY | PROVIDERS: PCP Internal Medicine; Visit Provider Internal Medicine ==

== ENCOUNTER 2024-02-23 11:22 | Outpatient (REF) | payer OTHER, SELFPAY ==
[2024-02-23 12:19] LABS: Appearance Urine Clear; Color Urine Yellow; Glucose Urine UA Negative (Negative); Leukocyte Esterase Urine Negative (Negative); Nitrite Urine Negative (Negative); PH 6.5 (5.0-9.0); Specific Gravity - Urine 1.015 (1.005-1.025); Urine Blood Negative (Negative); Urine Ketones Negative (Negative); Urine Protein Negative (Neg-Trace)
== END 2024-02-23 11:23 | disposition home or self-care (01) ==
LOC: HO.LNP 11:22
PROVIDERS: Visit Provider Internal Medicine
DX: R30.0 Dysuria (principal); N39.0 Urinary tract infection, site not specified
CPT/HCPCS: 81003

== ENCOUNTER 2024-04-01 08:54 | Outpatient (AMB) | payer OTHER, SELFPAY ==
--- NOTE | 2024-04-01 08:55 | MHC.OFFVIS ---
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 Maintenance Required: No Accompanied by: Self / Same As Patient Allergies lisinopril Allergy (Unknown, Verified 04/01/24 09:46) cough Amlodipine Adverse Reaction (Intermediate, Uncoded 04/01/24 09:46) Leg swelling Medication List - Last Reconciled 04/01/24 by FRAN Falk acetaminophen (Tylenol Extra Strength) 1,000 mg PO Q6H PRN aspirin 81 mg PO DAILY [BATH AND SHOWER STEP WITH HANDLE As directed] cholecalciferol (vitamin D3) (Vitamin D3) 50 mcg PO DAILY [Contour plus bladder pads As directed] cyanocobalamin (vitamin B-12) (Vitamin B-12) 1,000 mcg PO MO [EASY RISE WALKER As directed] estradiol 0.01%(0.1mg/gram) 1 g vaginal TUTH [flushable toilet wipes As directed] [gloves As directed] [gloves As directed] ketoconazole 2% apply to under the breast and under belly fold topically daily; losartan 25 mg PO DAILY mirtazapine 7.5 mg PO BEDTIME PRN nystatin 1 appl topical DAILY PRN omeprazole 20 mg PO DAILY@0630 [Pad liners for bed and chair As directed] [PAIN RELIEVING PATCHES WITH HEAT As directed] pravastatin 20 mg PO DAILY [reclining lift chair. As directed] [underwear pull ups 3 per day As directed] HPI Comments Details: Nisreen is a very pleasant 88-year-old female patient of Dr. Lebron was accompanied by her daughter at today's office visit. She has a past medical history of osteoarthritis, TIA, seizure disorder, urinary incontinence, GERD, COPD, obesity, hypertension, recurrent UTIs, and vitamin-D deficiency. She presents to the office today as a new patient for recurrent urinary tract infections. In discussion with the patient and her daughter today she reports a longstanding history of recurrent urinary tract infections for many years. She reports following up with a urologist here at [facility] over 10 years ago and believes she was on low-dose antibiotic therapy however does not recall the name of the medication. She reports recently being hospitalized for a urinary tract infection. In review of patient's chart positive urine cultures are as follows 01/10 E coli, 02/11 E coli and Streptococcus viridans group, 09/13 Streptococcus parasanguinis, 10/12 Enterococcus faecalis and Pseudomonas aeruginosa, 04/15 E coli, 12/15 Streptococcus viridans group and Enterobacter Cloacae complex. She currently denies any UTI like symptoms. Unable to obtain urine for urinalysis however PVR 35 mL. She reports having followed up with PCP and has CT scheduled for tomorrow. We discussed potential causes for recurrent urinary tract infections as well as further treatment options for recurrent urinary tract infections. She reports a longstanding history of urinary incontinence. She reports utilizing 4-6 adult diapers/pull ups daily. She denies any issues with her bowels. She otherwise denies hematuria, dysuria, foul smelling urine, changes to urinary stream, flank pain, fever, and or chills. We discussed potential for near future in office cystoscopy and or urodynamics for further assessment evaluation. She otherwise offers no other issues or concerns at this time. [facility] Medical History Altered mental status Acute encephalopathy Bilateral arm pain Osteoarthritis of knees, bilateral TIA (transient ischemic attack) Seizure disorder Knee osteoarthritis Urinary incontinence GERD (gastroesophageal reflux disease) COPD (chronic obstructive pulmonary disease) Obesity (BMI 30-39.9) Hypertension UTI (urinary tract infection) Hypertriglyceridemia Impaired glucose tolerance Vitamin D deficiency Surgical History H/O oophorectomy History of abdominal hysterectomy History of bilateral cataract extraction H/O left wrist surgery Family History Father No problems noted. Mother Past heart attack Sister Diabetes Brother Prostate cancer Social History Household Members: Family Housing: House Alcohol intake: never Patient Tobacco Use Status: Never used Tobacco Tobacco use type: Cigarette e-Cigarette/Vaping Use: Never Used Second Hand Smoke Exposure: No service: No Current occupational status: retired Cognitive needs: Yes (cane) Hearing needs: No Vision needs: Yes (glasses) Review of Systems Const All systems reviewed & are unremarkable except as noted in HPI and below Eyes Reports no additional complaints ENT Reports no additional complaints Card Reports as per [facility] Resp Reports as per [facility] GI Reports as per [facility] Reports as per [facility] Musc Reports as per [facility] Neuro Reports as per [facility] Psych Reports no additional complaints Endo Reports no additional complaints Kevin/Lymph Reports no additional complaints Aller/Immun Reports no additional complaints Physical Exam Const General: cooperative, healthy appearing, comfortable, no acute distress, well developed, alert and awake Nutritional Appearance: overweight Orientation/consciousness: patient oriented x3 Limitations: no limitations HEENT Head: Yes normal to inspection, Yes normocephalic and Yes atraumatic Ears: hearing grossly normal bilaterally Eyes General: appearance normal, both eyes and all related structures Neck Neck: Yes normal visual inspection and Yes trachea midline Chest Chest palpation & inspection: normal inspection of the chest Resp Effort & Inspection: normal respiratory effort and able to speak in complete sentences Cardio Rate: regular rate GI Inspection: Yes normal to inspection General: Yes no CVA tenderness Back/Spine/Pelvis Back: no CVA tenderness Skin General skin exam: no rashes or lesions noted Neuro General: patient oriented x3 Extrem General: Yes normal to inspection Psych Appearance: grossly normal and well kempt Mental Status: mental status grossly normal Speech and movement: Normal speech and movement present and Clear speech present Affect: normal affect Attitude: cooperative Thought process: Normal thought process present Thought content: Normal thought content present Insight: Fair insight present (Psych) Judgement: Fair judgement present (Psych) Office Procedures Post Void Residual Post Residual Void Post Void Residual (PVR): 35 [id number]-Eziv Void Residual by ultrasound Assessment & Plan Assessment & Plan (1) Recurrent UTI: Code(s): N39.0 - Urinary tract infection, site not specified Category: Medical (2) Urinary incontinence: Code(s): R32 - Unspecified urinary incontinence Category: Medical Plan Unable to obtain urine for urinalysis today however PVR 35 mL. We discussed at length potential causes of recurrent urinary tract infections as well as further treatment options and risks and benefits of these treatment options. Continue Estrace cream as prescribed. Start Myrbetriq as discussed and prescribed. Patient with scheduled CT appointment tomorrow; will await results. Discussed UTI prevention with D mannose supplement, vitamin-C, increasing fluid intake, behavioral therapy with timed voiding, perineal hygiene and postcoital voiding, and management of constipation with stool softeners and increased fiber intake. Discussed potential for near future in office cystoscopy and or urodynamics for further assessment evaluation. Follow-up in 1-3 months with PVR; or sooner with any issues, concerns, and or questions. Orders: Orders AMB Post Void Residual by ultrasound Today N39.0 - Urinary tract infection, site not specified Medications: New mirabegron ER (Myrbetriq) 25 mg PO DAILY 30 days 30 tabs 3RF N30.10 - Interstitial cystitis (chronic) without hematuria, N32.81 - Overactive bladder, R35.1 - Nocturia, R39.15 - Urgency of urination Patient Instructions: The patient had an opportunity to ask questions regarding the treatment plan. All questions were answered. Physical exam, labs, and imaging were discussed and reviewed in detail. As well as risks, benefits, and discussion of treatment choices. No major barriers to understanding were identified. The patient expressed understanding and agreement with the above treatment plan. The patient was made aware they should contact our office by phone for worsening of their current condition, the appearance of new symptoms, or with any questions or concerns. Compliance is encouraged with any medications and follow up testing that is ordered. It is a privilege to be allowed the opportunity to participate in? your urological care.? Again, if you have any questions or concerns If you have any questions or concerns please do not hesitate to contact me. The office is [phone]. This note is constructed using voice recognition software. While every effort has been made to ensure accuracy medication coordinator errors may have been included. Yours sincerely, FRAN Falk Coding Level of Care Code New Pt Level 4 (02859) Diagnoses Recurrent UTI N39.0 Urinary incontinence R32 CPT Codes Post Residual Void - PVR CPT Code: 06143-Nxta Void Residual by ultrasound ([id number])
--- OUTSIDE RECORDS SUMMARY | 2024-04-01 09:11 | XMS_ITS ---
Author Organization [facility] Address [address] [place] [address] Care Team Providers Care J2Ee Engineer Name Role Phone Bernardino Florijeanne Primary Care Provider Unavailabl e Black, Abigail Unavailable [phone] Allergies Allergen (clinical drug ingredient) Drug/Non Drug Allergy documented on EMR Reaction Allergy Type Onset Date Status ibuprofen Advil gastric bleed Drug Allergy Act kitty REASON FOR VISIT At Risk Footcare, Painful Nail(s) aggravated by shoes and causing difficulty standing/walking., Skin problem(s) Medications Medication SIG (Take, Route, Frequency, Duration) Notes Start Date End Date Status Bactrim DS 800-160 MG 1 tablet Orally Twice a day for 10 day(s) Not-Taking Ciclopirox Olamine 0.77 % 1 application Externally Twice a day for 30 days 10/18/2019 Not-Taking carBAMazepine 100 MG Oral for 90 Not-Taking Ammonium Lactate 12 % 1 application Externally to affected areas of dry skin to feet except for between the toes Twice a day for 30 days Active Lisinopril 5 MG Oral for 30 No t-Taking CeleBREX Not-Taking hydroCHLOROthiazide 20mg Not-Taking Urea 40 % 1 application to affected area Externally Twice a day for 30 days PRN 04/29/2022 Not-Taking Ketoconazole 2 % External for 10 PRN Not-Taking Compression Stockings 20-30mm Hg 1 pair wear daily for 30 days Active Fluticasone Propionate 50 MCG/ACT Nasal for 30 PRN Active Aspirin Low Dose 81 MG Oral for 90 Active Pravastatin Sodium 20 MG Oral for 90 Active Omeprazole 20 MG Oral for 90 A ctive Mirtazapine 7.5 MG Oral for 30 Active Losartan Potassium 25 MG 1 tablet Orally Once a day for 30 day(s) Active Vitamin B12 Active Tylenol Active vitamin D Active Social History Tobacco Use: Social History Observation Description Date Details (start date - stop date) Never Smoker NA - NA Tobacco Use/Smoking Question Answer Notes Are you a: nonsmoker Additional Findings: Tobacco Non-User Current no n-smoker Alcohol Screen Question Answer Notes Did you have a drink containing alcohol in the p ast year? No Points 0 Interpretation Negative Tobacco use other than smoking: Question Answer Notes Are you an other tobacco user? No Problems Problem Type SNOMED Code ICD Code Onset Dates Problem Status W/U Status Risk Notes Problem Atherosclerosis of capitan grande band arteries of the extremities (276127538013090) Atherosclerosis of capitan grande band artery of both lower extremities, with unspecified presence of clinical manifestation (I70.203) Active confirmed Q7(A), Q8(2B), Q9(1B,2 C) Problem Essential hypertension (48179310) Essential hypertension (I10) Active confirmed Vital Signs Height 5 ft 7 in in 03/23/2024 Weight 198 lbs 03/23/2024 BMI 31.01 kg/m2 03/23/2024 Blood pressure systolic 104 mm Hg 03/23/20 24 Blood pressure diastolic 78 mm Hg 024 Procedures Procedure Date Ordered Date Performed Result Body Sit e 07212-GYNPGBT NAIL, 6 OR MORE 03/23/2024 N/A 13660-BQTU SKIN LESIONS, OVER 4 03/23/2024 N/A Encounters Encounter Location Date Provider Diagnosis [facility] [place] [address] [place] [address] 03/23/2024 Abigail Black Xerosis of skin L85. 3 ; Atherosclerosis of capitan grande band artery of both lower extremities, with unspecified presence of clinical manifestation I70.203 ; Tinea unguium B35.1 ; Pain in right toe(s) M79.674 and Pain in left toe(s) M79.675 Assessments Encounter Date Diagnosis (ICD Code) Assessment Notes Treatment Notes Treatment Clinical Notes Section Notes 03/23/2024 Xerosis of skin (ICD-10 - L85.3) 03/23/2024 Atherosclerosis of capitan grande band artery of both lower extremities, with unspecified presence of clinical manifestation (ICD-10 - I70.203) Q7(A), Q8(2B), Q9(1B,2C) 03/23/2024 Tinea unguium (ICD-10 - B35.1) 03/23/2024 Pain in right toe(s) (ICD-10 - M79.674) 03/23/2024 Pain in left toe(s) (ICD-10 - M79.675) Plan Of Treatment Medication Medication Name Sig Start Date Stop Date Notes Ammonium Lactate 12 % 1 application Exte rnally to affected areas of dry skin to feet except for between the toes Twice a day for 30 days Pending Test Test Name Order Date 04057-HMIWZHO NAIL, 6 OR MORE 03/23/2024 03681-WNSK SKIN LESIONS, OVER 4 03/23/20 24 Next Appt Details Follow Up: 2 Months, Reason: Provider Name:Abigail Tavarez , 06/17/2024 09:00:00 AM, [address] [place] [address], [phone], Procedure Notes * Category Sub-Category Detail Notes Debride Nail 6-10 Nail debridement Due to the cl inical pathology outlined in the exam findings, performance of this nail treatment is medically necessary as its management by an unskilled/untrained nonprofessional would put this patients foot and overall health at risk. Therefore, debridement to affected nail(s), as described in exam (,T2 T3, T4, T7, T8, T9 , ), was performed exclusively by the physician of record to reduce/remove overall nail length, girth, thickness, subungual debris, and necrotic tissue, by manual and/or electrical means through the use of a nail nipper and/or dremel-type chicle grinder feeder, to a more viable healthy nail plate or bed tissue 6-10 nails in total. Silver nitrate was used for any petechial bleeding as necessary. Definitive antifungal treatment options, both pharmaceutical and surgical, have been reviewed and discussed with the patient. The patient solely prefers the use of intermittent/as needed professional debridement services for their nail condition and understands the need for additional periodic treatments to maintain effectiveness in symptomatic relief - 34828 Keratoma Treatment Parring or Cutting o f Benign Hyperkeratotic Lesion(s) (-57) More than 4 Lesions - Due to the at risk nature of the patients medical condition as documented in the exam findings, performance of this keratoderma treatment is medically necessary as its management by an unskilled/untrained nonprofessional would put this patients foot and overall health at risk. Therefore, the benign hyperkeratotic lesions, (5 ) in total, locations as stated and described in the exam ( T1, TA, T6, Plantar Heel(s), B/L ), were pared, and/or cut utilizing a sterile 15 blade, tissue nippers, and/or power dremel instrumentation by the physician of record - 70778, Q8 Progress Notes * Bautista AVERYOB: [birth year] (88 yo F)Acc No.[id number]:03/23/2024 Progress Note Patient:?Nisreen AVERY Provider:?Abigail Tavarez DPM :1935???Age:88 Y???Sex:Female D ate:03/23/2024 Address:[address] [place], [place] [id number] Pcp:Nicola Lebron Subjective: * Chief Complaints: * ???At Risk FootcarePainful N ail(s) aggravated by shoes and causing difficulty standing/walking.Skin problem(s) * HPI: ???Skin problems:?Nature:?dryness , scaling.?Location:?B/L .?Duration:?several days.?Course:?worse.?Painful Nails:?Pt States Last PCP Visit:?Date:?03/11/2024 ???At Risk footcare:?Pt States Last PCP Visit:?Date?03/11/2024 * ROS:?General/Constitutional:?Nausea?denies.?Vomiting?denies.?Hunger Thirst?denies.?Loss appetite?denies.?Chills?denies.?Fatigue?denies.?Fever?denies.?Night Sweats?denies.?Unexplained weight loss?denies.?Unexplained weight gain?denies.?HEENTM:?Dentures?denies.?Dizziness?denies.?Glasses/contacts?admits.?Retinopathy?de nies.?Blurred/double vision?denies.?TMJ?denies.?Discharge/drainage?denies.?Implants?denies.?Sore throat?denies.?Dental implants?denies.?Hard of hearing ?admits.?Difficulty chewing/swallowing/speaking?denies.?Nose bleeds?denies.?Sore mouth?denies.?Respiratory:?On Oxygen?denies.?Pneumonia/pleurisy?denies.?Bronchitis?denies.?Emphysema?denies.?C oughing?denies.?Cough blood?denies.?Shortness of breath?denies.?Wheezing?denies.?Cardiovascular:?Pacemaker?denies.?MVP?denies.?WPW?denies.?CHF?denies.?Heart attack?denies.?Septal defect?denies.?Rapid beat?denies.?Chest pain ?denies.?Atrial Fib.?denies.?Murmur/Palpitations?denies.?Gastrointestinal:?Hemorrhoids?denies.?Stomach/Abdominal pain?denies.?Dark blood stool?denies.?Irritable bowel ?denies.?Constipation?admits.?Diarrhea?denies.?Hematology:?Swelling?admits.?Clots?denies.?Varicose Veins?denies.?Bruising?denies.?Bleeding problem?denies.?Genitourinary:?Blood urine?denies.?Frequent/Painfu/urination/bladder control?admits.?Kidney stones?denies.?Infection (UTI)?denies.?Nephropathy?denies.?sex trans dis (STD)?denies.?Prostate?denies.?Musculoskeletal:?Hammertoes?denies.?Bunions?denies.?Back Pain?denies.?Muscle Cramps/ Resting?admits.?Muscle cramps / walking?denies.?Generalized aches and pains?admits.?Weakness?denies.?Integ.:?Ott?denies.?Scars?denies.?Corns/calluses?admits.?Ingrown nails?admits.?Painful nails?admits.?Open Sores?denies.?Rashes?denies.?Neurologic:?Difficulty sleeping?denies.?Brain disorder?denies.?Numbness?admits.?Balance trouble?admits.?Confusion?denies.?Fainting/blackouts?denies.?Tingling?admits.?Tr emors?denies.? * Medical History:? * Surgical History:?wrist surg hair hysterectomy * Hospitalization/Major Diagno stic Procedure:?Denies Past Hospitalization * Family History:?Mother: dece ased.?Father: .?Siblings: diagnosed with Other malignant neoplasm of unspecified site.? * Social History:?Tobacco Use:?Tobacco Use/Smoking?Are you a:?nonsmoker ?Additional Findings: Tobacco Non-User?Current non-smoker ?Tobacco use other than smoking?Are you an other tobacco user??No ???Drugs/Alcohol:?Drugs?Have you used drugs other than those for medical reasons in the past 12 months??No ?Alcohol Screen?Did you have a drink containing alcohol in the past year??No ?Points?0 ?Interpretation?Negative ???Miscellaneous:?Caffeine: yes, frequency:, 1-2 cups per day. ?Children: yes. ?Exercise: yes, light exercise at [employer], [employer] games, knitting. ?Marital status: . 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 * Medications:?TakingVitamin B 12 Losartan Potassium 25 MG Tablet 1 tablet Orally Once a day vitamin D Tylenol Aspirin Low Dose 81 MG Tablet Delayed Release Oral Fluticasone Propionate 50 MCG/ACT Suspension Nasal , Notes to Pharmacist: PRNMirtazapine 7.5 MG Tablet Oral Omeprazole 20 MG Capsule Delayed Release Oral Pravastatin Sodium 20 MG Tablet Oral Compression Stockings 20-30mm Hg closed toe- knee high 1 pair wear daily Taking Vitamin B12 Taking Losartan Potassium 25 MG Tablet 1 tablet Orally Once a day Taking vitamin D Taking Tylenol Taking Aspirin Low Dose 81 MG Tablet Delayed Release Oral Taking Fluticasone Propionate 50 MCG/ACT Suspension Nasal , Notes to Pharmacist: PRNTaking Mirtazapine 7.5 MG Tablet Oral Taking Omeprazole 20 MG Capsule Delayed Release Oral Taking Pravastatin Sodium 20 MG Tablet Oral Taking Compression Stockings 20-30mm Hg closed toe- knee high 1 pair wear daily Not-Taking/PRNKetoconazole 2 % Cream External , Notes to Pharmacist: PRNUrea 40 % Cream 1 application to affected area Externally Twice a day , Notes to Pharmacist: PRNhydroCHLOROthiazide 20mg CeleBREX carBAMazepine 100 MG Tablet Chewable Oral Ciclopirox Olamine 0.77 % Cream 1 application Externally Twice a day Bactrim DS 800-160 MG Tablet 1 tablet Orally Twice a day Lisinopril 5 MG Tablet Oral Medication List reviewed and reconciled with the patientNot-Taking/PRN Ketoconazole 2 % Cream External , Notes to Pharmacist: PRNNot-Taking/PRN Urea 40 % Cream 1 application to affected area Externally Twice a day , Notes to Pharmacist: PRNNot-Taking/PRN hydroCHLOROthiazide 20mg Not- Taking/PRN CeleBREX Not-Taking/PRN carBAMazepine 100 MG Tablet Chewable Oral Not-Taking/PRN Ciclopirox Olamine 0.77 % Cream 1 application Externally Twice a day Not- Taking/PRN Bactrim DS 800-160 MG Tablet 1 tablet Orally Twice a day Not-Taking/PRN Lisinopril 5 MG Tablet Oral Medication List reviewed and reconciled with the patient * Allergies:?Advil: gastric bl eedyes[Allergies Verified] Objective: * Vitals:?Ht: 5 ft 7 in, Wt: 1 98, BMI: 31.01, Shoe size: 10, BP: 104/78 mm Hg, Wt- k.81 kg. * Examination: ???General Examination: ?GENERAL APPEARANCE:?Reveals a pleasant, alert, well nourished, well- developed, well hydrated individual, who demonstrates proper attention to hygiene/body habitus, and is in no acute distress, Pt serves as own historian for office visit today.?ORIENTED:?person, place, and time.?Dermatologic: ?SKIN FINDINGS:?Skin shows sign(s) of, dryness, scaling, in a stocking fashion, no fissure(s) present, B/L , Skin exam reveals Keratotic lesion(s) located at, T1, TA, T6, Plantar Heel(s), B/L.?Nails: ?NAILS are:?elongated,overgrown,dystrophic,greater than 3mm thick,discolored and friable with crumbly malodorous subungual debris, with pain on palpation,,T2?T3, T4, ?T7, T8, T9 ,?.?Vascular: ?DP PULSES (B):? 0/4, B/L.?PT PULSES (B):? 0/4, B/L.?CAPILLARY FILL TIME:? delayed, all digits, B/L.?TROPHIC CONDITION-TEXTURE/ELASTICITY/TURGOR/HAIR GROWTH (B):? decreased, fragile, thin, shiny skin, with sparse to absent hair growth, B/L.?TEMPERTURE GRADIENT (C):? decreased, cool to cool, proximal to distal, B/L.?PIGMENTATION:?, rubrous, B/L.?EDEMA (C):?, 4/4, non-pitting, B/L, Leg(s), Ankle(s), Foot.?CLAUDICATION (C):?denies, B/L.?REST PAIN:?denies, B/L.?PARESTHESIA (C):?absent, B/L.?BURNING (C):?absent, B/L.?Neurological: ?SENSORY:?Neurological exam reveals intact sensorium, pain sensation normal, vibration sensation intact, pinprick sensation is normal in the lower extremities, Pt denies, anesthesia, burning, paresthesia, tingling, B/L.? Assessment: * Assessment: 1.?Xerosis of skin - L85.3?? ?Specify :Acute problem, Uncomplicated (3),Rx Management (4)???2.?Atherosclerosis of capitan grande band artery of both lower extremities, with unspecified presence of clinical manifestation - I70.203 (Primary)???Notes :Q7(A), Q8(2B), Q9(1B,2C)???3.?Tinea unguium - B35.1???4.?Pain in right toe(s) - M79.674???5.?Pain in left toe(s) - M79.675??? Plan: * Treatment: 2.?Xerosis of skin? Start Ammonium Lactate Cream, 12 %, 1 application, Externally to affected areas of dry skin to feet except for between the toes, Twice a day, 30 days, 140, Refills 2.?? 3.?Tinea unguium?Procedure: 54145-[id number] NAIL, 6 OR MORE * Procedures:?Debride Nail 6-10:?Nail debridement?Due to the clinical pathology outlined in the exam findings, performance of this nail treatment is medically necessary as its management by an unskilled/untrained nonprofessional would put this patients foot and overall health at risk. Therefore, debridement to affected nail(s), as described in exam (,T2 T3, T4, T7, T8, T9 , ), was performed exclusively by the physician of record to reduce/remove overall nail length, girth, thickness, subungual debris, and necrotic tissue, by manual and/or electrical means through the use of a nail nipper and/or dremel-type chicle grinder feeder, to a more viable healthy nail plate or bed tissue 6-10 nails in total. Silver nitrate was used for any petechial bleeding as necessary. Definitive antifungal treatment options, both pharmaceutical and surgical, have been reviewed and discussed with the patient. The patient solely prefers the use of intermittent/as needed professional debridement services for their nail condition and understands the need for additional periodic treatments to maintain effectiveness in symptomatic relief - 03298.?Keratoma Treatment:?Parring or Cutting of Benign Hyperkeratotic Lesion(s)?(-57) More than 4 Lesions - Due to the at risk nature of the patients medical condition as documented in the exam findings, performance of this keratoderma treatment is medically necessary as its management by an unskilled/untrained nonprofessional would put this patients foot and overall health at risk. Therefore, the benign hyperkeratotic lesions, (5 ) in total, locations as stated and described in the exam ( T1,TA,T6,Plantar Heel(s),B/L), were pared, and/or cut utilizing a sterile 15 blade, tissue nippers, and/or power dremel instrumentation by the physician of record - 08172, Q8.? * Procedure Codes:?95443 DEBRI DE NAIL, 6 OR MORE, Modifiers: XS 45248 TRIM SKIN LESIONS, OVER 4, Modifiers: Q8 * Preventive Medicine:? ??Counseling:?Discussion:?-13: Office or other outpatient visit for the evaluation and management of an established patient, which required a medically appropriate history and/or examination and LOW level of DECISION MAKING for: 1 STABLE ACUTE UNCOMPLICATED PROBLEM, 2 OR MORE MINOR PROBLEMS, OR 1 STABLE CHRONIC PROBLEM, THAT POSE(S) A LOW RISK FOR MORBIDITY/MORTALITY. The visit on the day of the encounter encompassed interpreting the data and educating the patient as to the nature of their condition, treatment options available according to their individual PMH, meds, allergies, and overall health/living conditions, as well as any potential risks or complications that may occur from a failure to adhere to, and participate in, the recommended course of therapy. The discussion included a complete verbal, and/or written explanation of the examination results, any x-rays taken, the proposed diagnosis, and outline of the treatment plan. A schedule for future care needs was also explained. The patient verbalized an understanding of the instructions at this time and agreed to be an active participant in their treatment. If the patient should think of any questions or concerns after the visit, I have encouraged the patient to call the office.?Xerosis:?The patient was counseled on the diagnosis, potential etiologies, and treatment options for their skin condition. We discussed the risks and benefits of each option from performing no treatment, to utilizing OTC topical skin creams/ointments, to utilizing prescription topical creams/ointments, to utilizing customized compounded topical medications and use of nocturnal occlusion with any/all previously detailed therapies. We discussed the advantages and disadvantages of each possible treatment and importance for adherence to all the recommended therapies for optimum success and avoid potential complications such as open sore/infection/possible hospitalization. We discussed the potential effectiveness of each topical preparation as well as each ones possible side effects and/or patient medication interactions. Patient questions re: use, dosage, successful outcomes, and application consistency were reviewed and the patient verbalized that all answers were clearly understood. The patient has decided to apply Rx skin creams to their feet save the interspaces while paying special attention to the heels. Such was sent to their pharmacy at the time of visit.? ??Screening/Special Tests:?FALLS: Screening for Future Fall Risk?Have you had any falls with injury in the past year??No * Follow Up:?2 Months * Images: * Sign off status: Completed true * Provider:?Abigail Tavarez DPM Date:?2023 Generated for Eunice felipe/Tex/Eugene on:?04/01/2024 09:10 AM EST History and Physical Notes * HPI (History of Present Illness) Category Sub-Category Detail Notes Category Not es Painful Nails Pt States Last PCP Visit: Date:: 03/11/2024 Skin problems Nature: dryness , scaling Location: B/L Duration: several days Course: worse At Risk footcare Pt States Last PCP Visit: Date: 12/19/202 4 Examination Category Sub-Category Detail Notes Category Not es Neurological SENSORY: Neurological exa m reveals intact sensorium, pain sensation normal, vibration sensation intact, pinprick sensation is normal in the lower extremities, Pt denies, anesthesia, burning, paresthesia, tingling, B/L Dermatologic SKIN FINDINGS: Skin shows sign( s) of, dryness, scaling, in a stocking fashion, no fissure(s) present, B/L , Skin exam reveals Keratotic lesion(s) located at, T1, TA, T6, Plantar Heel(s), B/L ULCER: General Examination GENERAL APPEARANCE: Reveals a pleasant, alert, well nourished, well-developed, well hydrated individual, who demonstrates proper attention to hygiene/body habitus, and is in no acute distress, Pt serves as own historian for office visit today ORIENTED: person, place, and t calin Vascular DP PULSES (B): 0/4, B/L PT PULSES (B): 0/4, B/L CAPILLARY FILL TIME: delayed, all digits , B/L TEMPERTURE GRADIENT (C): decreased, cool to cool, proximal to distal, B/L TROPHIC CONDITION-TEXTURE/ELASTICITY/TURGOR/HAIR GROWTH (B): decreased, fragile, thin, shiny skin, wi th sparse to absent hair growth, B/L EDEMA (C): , 4/4, non-pitting, B/L, Leg(s), Ankle(s), Foot CLAUDICATION (C): denies, B/L REST PAIN: denies, B/L PIGMENTATION: , rubrous, B/L PARESTHESIA (C): absent, B/L BURNING (C): absent, B/L Nails NAILS are: elongated,overgr own,dystrophic,greater than 3mm thick,discolored and friable with crumbly malodorous subungual debris, with pain on palpation,,T2 T3, T4, T7, T8, T9 ,
--- OUTSIDE RECORDS SUMMARY | 2024-04-01 09:11 | XMS_ITS ---
Author Organization [facility] Address [address] [place] [address] Care Team Providers Care Signal Operator Name Role Phone Nicola Lebron Primary Care Provider Abigail Juarez [phone] REASON FOR VISIT Nails Encounters Encounter Location Date [facility] [address] 03/04/[facility]24 Abigail Tavarez Plan Of Treatment Next Appt Details Provider Name:Abigail Tavarez , 06/17/2024 09:00:00 AM, [address] [place], [address], Progress Notes * Bautista AVERYOB: [birth year] (88 yo F)Acc No.[id number]:03/04/2024 Patient:?Nisreen AVERY :1935???Age:88 Y???Sex:Female Address:[address] [place] [address], [address] * true * Date:? Generated for Printi matteo/Tex/eTransmitting on:?04/01/2024 09:10 AM EST
--- OUTSIDE RECORDS SUMMARY | 2024-04-01 09:11 | XMS_ITS | Patient Health Record ---
Author Organization [facility] Address [address] [facility] [place] [address] Care Team Providers Care Can Filling And Closing Machine Tender Name Role Phone Nicola Lebron Primary Care Provider Vern TavarezAbigail Unavailable [phone] Allergies Allergen (clinical drug ingredient) Drug/Non Drug Allergy documented on EMR Reaction Allergy Type Onset Date Status ibuprofen Advil gastric bleed Drug Allergy Act kitty Reason For Referral No Information Medications Medication SIG (Take, Route, Frequency, Duration) Notes Start Date End Date Status Losartan Potassium 25 MG 1 tablet Orally Once a day for 30 day(s) Active Vitamin B12 Active Fluticasone Propionate 50 MCG/ACT Nasal for 30 PRN Active Bactrim DS 800-160 MG 1 tablet Orally Twice a day for 10 day(s) Not-Taking Aspirin Low Dose 81 MG Oral for 90 Active Ciclopirox Olamine 0.77 % 1 application Externally Twice a day for 30 days 10/18/2019 Not-Taking Tylenol Active carBAMazepine 100 MG Oral for 90 Not-Taking vitamin D Active Compression Stockings 20-30mm Hg 1 pair wear daily for 30 days Active Pravastatin Sodium 20 MG Oral for 90 Active Ammonium Lactate 12 % 1 application Externally to affected areas of dry skin to feet except for between the toes Twice a day for 30 days Active Omeprazole 20 MG Oral for 90 A ctive Mirtazapine 7.5 MG Oral for 30 Active Lisinopril 5 MG Oral for 30 No t-Taking CeleBREX Not-Taking hydroCHLOROthiazide 20mg Not-Taking Urea 40 % 1 application to affected area Externally Twice a day for 30 days PRN 04/29/2022 Not-Taking Ketoconazole 2 % External for 10 PRN Not-Taking Immunizations Vaccine Route Administration Date Status Comme nts COVID-19 Pfizer BioNTech Vaccine Unknown 05/23/2020 Administered First Dose:11/2020 Social History Tobacco Use: Social History Observation [...] Problem Status W/U Status Risk Notes Problem Acquired hallux valgus (12827709) Hallux valgus (acquired), left foot (M20.12) Active confirmed Problem Acquired hallux valgus (64539270) Hallux valgus (acquired), right foot (M20.11) Active confirmed Problem Ulcer of toe (002690675) 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 skin (L97.521) Active confirmed Worse Problem Ulcer of toe (309975199) Non-pressure chronic ulcer of other part of right foot limited to breakdown of skin (L97.511) Active confirmed Problem Acquired hammer toe of right foot (6891108300734608) Other hammer toe(s) (acquired), right foot (M20.41) Active confirmed Problem Acquired hammer toe of left foot (5830291419033198) Other hammer toe(s) (acquired), left foot (M20.42) Active confirmed Problem Hammer toe (928568577) Hammer toe of right foot (M20.41) Active confirmed Problem Atherosclerosis of galena arteries of the extremities (097595424784467) Atherosclerosis of galena artery of both lower extremities, with unspecified presence of clinical manifestation (I70.203) Active confirmed Q7(A), Q8(2B), Q9(1B,2 C) Problem Plantarflexion deformity of foot (144406724) 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 confirmed Problem Essential hypertension (35433104) Essential hypertension (I10) Active confirmed Vital Signs Blood pressure diastolic 78 mm Hg 03/23/2024 Height 5 ft 7 in in 03/23/2024 Blood pressure systolic 104 mm Hg 03/23/2024 Weight 198 lbs 03/23/2024 BMI 31.01 kg/m2 03/23/2024 Procedures Procedure Date Ordered Date Performed Result Body Sit e 02993-JYZUPTQ NAIL, 6 OR MORE 06/02/2023 N/A 02242-Ogjgfhvy Plate 06/02/2023 N/A 41385- Debride <25 sq cm 06/02/2023 N/A 84813-TBYQYSH NAIL, 6 OR MORE 09/04/2023 N/A 79243- Debride <25 sq cm 09/04/2023 N/A 43144-VHCTUAB NAIL, 6 OR MORE 12/11/2023 N/A 18281-Tlfvxmmv Plate 12/11/2023 N/A 56181- Debride <25 sq cm 12/11/2023 N/A 76285-TWQRQDH NAIL, 6 OR MORE 03/23/2024 N/A 89524-KLXG SKIN LESIONS, OVER 4 03/23/2024 N/A Encounters Encounter Location Date Provider Diagnosis [address] [address] 06/02/2023 Abigail Black Tinea unguium B35.1 ; 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 skin L97.521 ; Pain in right toe(s) M79.674 ; Pain in left toe(s) M79.675 and Ingrown nail L60.[address] [address] 09/04/2023 Abigail Black Tinea unguium B35.1 ; 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 skin L97.521 ; Pain in right toe(s) M79.674 ; Pain in left toe(s) M79.675 and Edema, lower extremity R60.[address] [address] 12/11/2023 Abigail Black Tinea unguium B35.1 ; 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 3 ; Atherosclerosis of galena artery of both lower extremities, with unspecified presence of clinical manifestation I70.203 ; Tinea unguium B35.1 ; Pain in right toe(s) M79.674 and Pain in left toe(s) M79.675 [facility] [address] [address] 03/04/2024 Abigail Corby Assessments Encounter Date Diagnosis (ICD Code) Assessment Notes Treatment Notes Treatment Clinical Notes Section Notes 06/02/2023 Tinea unguium (ICD-10 - B35.1) 06/02/2023 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 skin (ICD-10 - L97.521) Response to treatment - Unresolved 09/04/2023 Tinea unguium (ICD-10 - B35.1) 12/11/2023 Tinea unguium (ICD-10 - B35.1) 12/11/2023 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 skin (ICD-10 - L97.521) Worse 03/23/2024 Xerosis of skin (ICD-10 - L85.3) 03/23/2024 Atherosclerosis of galena artery of both lower extremities, with unspecified presence of clinical manifestation (ICD-10 - I70.203) Q7(A), Q8(2B), Q9(1B,2C) 03/23/2024 Tinea unguium (ICD-10 - B35.1) 12/11/2023 Pain in right toe(s) (ICD-10 - M79.674) 09/04/2023 Pain in right toe(s) (ICD-10 - M79.674) 09/04/2023 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 skin (ICD-10 - L97.521) Response to treatment - Unresolved 06/02/2023 Pain in right toe(s) (ICD-10 - M79.674) 06/02/2023 Pain in left toe(s) (ICD-10 - M79.675) 09/04/2023 Pain in left toe(s) (ICD-10 - M79.675) 12/11/2023 Pain in left toe(s) (ICD-10 - M79.675) 03/23/2024 Pain in right toe(s) (ICD-10 - M79.674) 03/23/2024 Pain in left toe(s) (ICD-10 - M79.675) 12/11/2023 Ingrown nail (ICD-10 - L60.0) 09/04/2023 Edema, lower extremity (ICD-10 - R60.0) 06/02/2023 Ingrown nail (ICD-10 - L60.0) Plan Of Treatment Pending Test Test Name Order Date 68316-SALTAIN NAIL, 6 OR MORE 10/18/2019 02026-QIUEDSF NAIL, 6 OR MORE 12/27/2019 84378-WZDEGQO NAIL, 6 OR MORE 03/13/2020 52172-YMSPAGP NAIL, 6 OR MORE 07/13/2020 78915-UBEMFIU NAIL, 6 OR MORE 10/16/2020 61692-UBGPFBS NAIL, 6 OR MORE 02/05/2021 05644-TWDHKIS NAIL, 6 OR MORE 07/19/2021 41597-AHKMUBP NAIL, 6 OR MORE 10/18/2021 83734-MZWQGKE NAIL, 6 OR MORE 01/21/2022 63766-GTQERAD NAIL, 6 OR MORE 04/29/2022 76676-MLSAZTN NAIL, 6 OR MORE 07/08/2022 94275-IGOAOQX NAIL, 6 OR MORE 09/16/2022 74120-BJGDXCN NAIL, 6 OR MORE 12/02/2022 77387-PXNHQIB NAIL, 6 OR MORE 02/24/2023 64499-OVBOAVD NAIL, 6 OR MORE 06/02/2023 87501-CNWTZQM NAIL, 6 OR MORE 09/04/2023 59289-EHXOVJU NAIL, 6 OR MORE 12/11/2023 40609-DFMPFVL NAIL, 6 OR MORE 03/23/2024 05866-Razildkh Plate 12/11/2023 22457-Ssbsrysn Plate 09/16/2022 81638-Rdsclhfa Plate 06/02/2023 05049-Cszvxcdp Plate 07/19/2021 28979-Kcspoyvh Plate 10/18/2021 64568-Igfarsrl Plate 07/13/2020 90722-Htvibvko Plate 02/05/2021 52302-Sklkgvsa Plate 10/18/2019 51893- Debride <25 sq cm 10/18/2019 54082- Debride <25 sq cm 12/27/2019 40056- Debride <25 sq cm 07/13/2020 46100- Debride <25 sq cm 03/13/2020 71270- Debride <25 sq cm 07/19/2021 85200- Debride <25 sq cm 02/05/2021 52304- Debride <25 sq cm 10/18/2021 96594- Debride <25 sq cm 04/29/2022 32869- Debride <25 sq cm 01/21/2022 33912- Debride <25 sq cm 02/24/2023 38229- Debride <25 sq cm 12/02/2022 97658- Debride <25 sq cm 09/16/2022 28737- Debride <25 sq cm 07/08/2022 44568- Debride <25 sq cm 06/02/2023 40974- Debride <25 sq cm 12/11/2023 44073- Debride <25 sq cm 09/04/2023 90276 I&D ABSCESS- SIMPLE,SINGLE 021 21083-MOAC SKIN LESIONS, OVER 4 03/23/20 24 Next Appt Details Provider Name:Abigail Tavarez , 06/17/2024 09:00:00 AM, [address] [place] [address], [address], Insurance Providers Payer Name Payer Address Payer Phone Subscriber Number Group Number Insured Name Patient Relationship to Insured Coverage Start Date Coverage End Date [facility] Adv [address] [place] [id number] Gerardo hinson Claire Self - patient is the insured Medical (General) History Medical History History ICD Code Anxiety Arthritis Back,Hip,and Knee pain Cholesterol High blood pressure Joint implants/screws Transfusions Surgical History Surgery Date(Month/Year) wrist surgery hysterectomy
== END 2024-04-01 09:46 | disposition home or self-care (01) ==
PROVIDERS: PCP Internal Medicine; Visit Provider Nurse Practitioner Family
DX: N39.0 Urinary tract infection, site not specified (principal); R32 Unspecified urinary incontinence
CPT/HCPCS: 99204

== ENCOUNTER → 2024-04-01 08:54 | Outpatient (BNVA) | payer OTHER, SELFPAY | PROVIDERS: PCP Internal Medicine; Visit Provider Nurse Practitioner Family | DX: N39.0 Urinary tract infection, site not specified (principal); R32 Unspecified urinary incontinence | CPT/HCPCS: 51798; 99202 ==

== ENCOUNTER 2024-04-02 13:40 | Outpatient (REF) | payer OTHER, SELFPAY ==
--- NOTE | ~2024-04-02 | CT_ITS ---
CLINICAL HISTORY: N39.0 - Urinary tract infection, site not specified CT abdomen and pelvis without contrast Comparison: None Findings: No consolidation or effusion. Punctate nonobstructing right upper pole renal stone. 2 cm simple appearing right renal cyst for which no further follow-up is necessary. The gallbladder and remaining solid organs are within normal limits. No bowel obstruction, pneumoperitoneum, or pneumatosis. Small hiatal hernia. Large volume stool in the rectosigmoid colon without inflammation to suggest colitis. Status post hysterectomy. Bladder is mildly distended without inflammatory change or filling defect. No fluid collections or adenopathy. Appendix not seen. The bones are intact. Thoracic spondylosis with lower thoracic facet hypertrophy. IMPRESSION: Punctate nonobstructing right upper pole renal stone. No evidence of obstructive uropathy. No bladder inflammation or bladder stones. Large volume rectosigmoid stool without findings of inflammation. Small hiatal hernia. This document has been electronically signed by: Mikaela Holliday MD on 04/06/2024 06:23:10
--- OUTSIDE RECORDS SUMMARY | 2024-04-02 13:42 | XMS_ITS ---
Author Organization [facility] Address [address] [place] [address] Care Team Providers Care Hacksaw Inspector Name Role Phone Nicola Lebron Primary Care Provider Abigail Juarez [phone] Figueroa Encounters Encounter Location Date Provider Diagnosis [facility] [address] [place] [address] 03/29/2024 Abigail Tavarez Plan Of Treatment Next Appt Details Provider Name:Abigail A Corby , 06/17/2024 09:00:00 AM, [address] [place], [address], Progress Notes * June AVERYireDOB: [birth year] (88 yo F)Acc No.[id number]:03/29/2024 Progress Note Patient:?Nisreen AVERY Provider:?Abigail Tavarez DPM :1935???Age:88 Y???Sex:Female D ate:03/29/2024 Address:[address] [place], [place] [address] Pcp:Nicola Lebron Subjective: * Chief Complaints: * ???1. Dr Figueroa. * Medical History:? Objective: * Vitals:? Assessment: Plan: * Treatment: * Images: * The named appointment provid er may or may not be the originator of this progress note, and it is not deemed complete until electronically signed by the appointment provider. Sign off status: Pending * Provider:?Abigail Tavarez DPM Date:?2024 Generated for Eunice felipe/Tex/Eugene on:?04/02/2024 01:42 PM EST
--- OUTSIDE RECORDS SUMMARY | 2024-04-02 13:43 | XMS_ITS | Patient Health Record ---
Author Organization [facility] Address [address] [place] [address] Care Team Providers Care Floor Covering Layer Name Role Phone Nicola Lebron Primary Care Provider Vern TavarezAbigail Unavailable [phone] Allergies Allergen (clinical drug ingredient) Drug/Non Drug [...] Status Risk Notes Problem Acquired hallux valgus (11492334) Hallux valgus (acquired), left foot (M20.12) Active confirmed Problem Acquired hallux valgus (62541767) Hallux valgus (acquired), right foot (M20.11) Active confirmed Problem Ulcer of toe (381349216) 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 skin (L97.521) Active confirmed Worse Problem Ulcer of toe (174189934) Non-pressure chronic ulcer of other part of right foot limited to breakdown of skin (L97.511) Active confirmed Problem Acquired hammer toe of right foot (4256557830218745) Other hammer toe(s) (acquired), right foot (M20.41) Active confirmed Problem Acquired hammer toe of left foot (9884052895157775) Other hammer toe(s) (acquired), left foot (M20.42) Active confirmed Problem Hammer toe (643293742) Hammer toe of right foot (M20.41) Active confirmed Problem Atherosclerosis of [place] arteries of the extremities (704456316600618) Atherosclerosis of [place] artery of both lower extremities, with unspecified presence of clinical manifestation (I70.203) Active confirmed Q7(A), Q8(2B), Q9(1B,2 C) Problem Plantarflexion deformity of foot (878093923) 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 confirmed Problem Essential hypertension (13271336) Essential hypertension (I10) Active confirmed Vital Signs Blood pressure diastolic 78 mm Hg 03/23/2024 Height 5 ft 7 in in 03/23/2024 Blood pressure systolic 104 mm Hg 03/23/2024 Weight 198 lbs 03/23/2024 BMI 31.01 kg/m2 03/23/2024 Procedures Procedure Date Ordered Date Performed Result Body Sit e 49089-JMZYMNP NAIL, 6 OR MORE 06/02/2023 N/A 20624-Crrwnyvq Plate 06/02/2023 N/A 39171- Debride <25 sq cm 06/02/2023 N/A 56355-XVFCHDU NAIL, 6 OR MORE 09/04/2023 N/A 76647- Debride <25 sq cm 09/04/2023 N/A 10649-XFKCGZK NAIL, 6 OR MORE 12/11/2023 N/A 18492-Tlzzmech Plate 12/11/2023 N/A 06491- Debride <25 sq cm 12/11/2023 N/A 76053-SVLMEOC NAIL, 6 OR MORE 03/23/2024 N/A 50118-HTEU SKIN LESIONS, OVER 4 03/23/2024 N/A Encounters Encounter Location Date Provider Diagnosis [address] [address] 06/02/2023 Abigail Black Tinea unguium B35.1 ; 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 skin L97.521 ; Pain in right toe(s) M79.674 ; Pain in left toe(s) M79.675 and Ingrown nail L60.[address] [address] 09/04/2023 Abigail Black Tinea unguium B35.1 ; 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 skin L97.521 ; Pain in right toe(s) M79.674 ; Pain in left toe(s) M79.675 and Edema, lower extremity R60.[address] [address] 12/11/2023 Abigail Black Tinea unguium B35.1 ; 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 skin L97.521 ; Pain in right toe(s) M79.674 ; Pain in left toe(s) M79.675 and Ingrown nail L60.0 [facility] [address] [place] [address] 03/23/2024 Abigail Tavarez Xerosis of skin L85. 3 ; Atherosclerosis of [place] artery of both lower extremities, with unspecified presence of clinical manifestation I70.203 ; Tinea unguium B35.1 ; Pain in right toe(s) M79.674 and Pain in left toe(s) M79.[address] [facility] [address] [address] 03/04/2024 Abigail Corby Assessments Encounter Date Diagnosis [...] skin (ICD-10 - L85.3) 03/23/2024 Atherosclerosis of [place] artery of both lower extremities, with unspecified [...] Treatment Pending Test Test Name Order Date 19557-MDGOBGW NAIL, 6 OR MORE 10/18/2019 75756-ONMBDXA NAIL, 6 OR MORE 12/27/2019 22276-ZCOALMP NAIL, 6 OR MORE 03/13/2020 47194-VKQQVRM NAIL, 6 OR MORE 07/13/2020 37115-HDHDCIK NAIL, 6 OR MORE 10/16/2020 65986-GPBCCIB NAIL, 6 OR MORE 02/05/2021 68966-PBQBQCV NAIL, 6 OR MORE 07/19/2021 41155-BNFRUAZ NAIL, 6 OR MORE 10/18/2021 44982-OAVEORU NAIL, 6 OR MORE 01/21/2022 87769-JFMTITW NAIL, 6 OR MORE 04/29/2022 95142-OHKGPAK NAIL, 6 OR MORE 07/08/2022 30763-YJKDYTI NAIL, 6 OR MORE 09/16/2022 66129-XTQLSAY NAIL, 6 OR MORE 12/02/2022 75270-BSLZHXO NAIL, 6 OR MORE 02/24/2023 64531-XQARHPV NAIL, 6 OR MORE 06/02/2023 41503-NCWTVTC NAIL, 6 OR MORE 09/04/2023 36976-ZKGWTCP NAIL, 6 OR MORE 12/11/2023 99616-MTPRAWO NAIL, 6 OR MORE 03/23/2024 94885-Lvfegqtv Plate 12/11/2023 30361-Jnfdqhrc Plate 09/16/2022 61322-Fwydyjmx Plate 06/02/2023 86547-Fpfjmsse Plate 07/19/2021 39098-Zfjrcczr Plate 10/18/2021 82959-Eeffikry Plate 07/13/2020 29400-Fnwoeoow Plate 02/05/2021 44421-Wgyqpjqh Plate 10/18/2019 49530- Debride <25 sq cm 10/18/2019 44529- Debride <25 sq cm 12/27/2019 41564- Debride <25 sq cm 07/13/2020 04695- Debride <25 sq cm 03/13/2020 47824- Debride <25 sq cm 07/19/2021 31794- Debride <25 sq cm 02/05/2021 29439- Debride <25 sq cm 10/18/2021 88361- Debride <25 sq cm 04/29/2022 75788- Debride <25 sq cm 01/21/2022 49780- Debride <25 sq cm 02/24/2023 48309- Debride <25 sq cm 12/02/2022 29803- Debride <25 sq cm 09/16/2022 06942- Debride <25 sq cm 07/08/2022 16878- Debride <25 sq cm 06/02/2023 81996- Debride <25 sq cm 12/11/2023 49987- Debride <25 sq cm 09/04/2023 41719 I&D ABSCESS- SIMPLE,SINGLE 021 90126-FGHT SKIN LESIONS, OVER 4 03/23/20 24 Next Appt Details Provider Name:Abigail Tavarez , 06/17/2024 09:00:00 AM, [address] [place] [address], [phone], Insurance Providers Payer Name Payer Address Payer Phone Subscriber Number Group Number Insured Name Patient Relationship to Insured Coverage Start Date Coverage End Date [facility] Adv [address] [place] [id number] Gerardo hinson Claire Self - patient is the insured Medical (General) History Medical History History ICD Code Anxiety Arthritis Back,Hip,and Knee pain Cholesterol High blood pressure Joint implants/screws Transfusions Surgical History Surgery Date(Month/Year) wrist surgery hysterectomy
--- OUTSIDE RECORDS SUMMARY | 2024-04-02 13:43 | XMS_ITS ---
Author Organization [facility] Address [address] [facility] [place] [address] Care Team Providers Care Director Drug Name Role Phone Bernardino Florijeanne Primary Care Provider Unavailabl e Black, Abigail Unavailable [phone] Allergies Allergen (clinical drug ingredient) Drug/Non Drug [...] W/U Status Risk Notes Problem Atherosclerosis of [place] arteries of the extremities (628694070126760) Atherosclerosis of [place] artery of both lower extremities, with unspecified presence of clinical manifestation (I70.203) Active confirmed Q7(A), Q8(2B), Q9(1B,2 C) Problem Essential hypertension (35037462) Essential hypertension (I10) Active confirmed Vital Signs Height 5 ft 7 in in 03/23/2024 Weight 198 lbs 03/23/2024 BMI 31.01 kg/m2 03/23/2024 Blood pressure systolic 104 mm Hg 03/23/20 24 Blood pressure diastolic 78 mm Hg 024 Procedures Procedure Date Ordered Date Performed Result Body Sit e 59213-PISTXKJ NAIL, 6 OR MORE 03/23/2024 N/A 56586-AWEU SKIN LESIONS, OVER 4 03/23/2024 N/A Encounters Encounter Location Date Provider Diagnosis [facility] [address] [place] [address] 03/23/2024 Abigail Black Xerosis of skin L85. 3 ; Atherosclerosis of [place] artery of both lower extremities, with unspecified presence of clinical manifestation I70.203 ; Tinea unguium B35.1 ; Pain in right toe(s) M79.674 and Pain in left toe(s) M79.675 Assessments Encounter Date Diagnosis (ICD Code) Assessment Notes Treatment Notes Treatment Clinical Notes Section Notes 03/23/2024 Xerosis of skin (ICD-10 - L85.3) 03/23/2024 Atherosclerosis of [place] artery of both lower extremities, with unspecified [...] days Pending Test Test Name Order Date 88852-ISASBCM NAIL, 6 OR MORE 03/23/2024 49152-FRSY SKIN LESIONS, OVER 4 03/23/20 24 Next Appt Details Follow Up: 2 Months, Reason: Provider Name:Abigail Tavarez , 06/17/2024 09:00:00 AM, [address] [place] [address], [phone], Procedure Notes * Category Sub-Category Detail [...] use of a nail nipper and/or dremel-type hull grinder, to a more viable healthy nail plate [...] to maintain effectiveness in symptomatic relief - 10936 Keratoma Treatment Parring or Cutting o f [...] instrumentation by the physician of record - 31329, Q8 Progress Notes * Bautista AVERYOB: [birth year] (88 yo F)Acc No.[id number]:03/23/2024 Progress Note Patient:?Nisreen AVERY Provider:?Abigail Tavarez DPM :1935???Age:88 Y???Sex:Female D ate:03/23/2024 Address:[address] [place], [place] [address] Pcp:Nicola Lebron Subjective: * Chief Complaints: * [...] ?Children: yes. ?Exercise: yes, light exercise at [employer], [employer] games, knitting. ?Marital status: . 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 * Medications:?TakingVitamin B 12 Losartan Potassium 25 [...] :Acute problem, Uncomplicated (3),Rx Management (4)???2.?Atherosclerosis of [place] artery of both lower extremities, with unspecified [...] 30 days, 140, Refills 2.?? 3.?Tinea unguium?Procedure: 55771-TJTNMNF NAIL, 6 OR MORE * Procedures:?Debride Nail [...] use of a nail nipper and/or dremel-type hull grinder, to a more viable healthy nail plate [...] to maintain effectiveness in symptomatic relief - 51286.?Keratoma Treatment:?Parring or Cutting of Benign Hyperkeratotic Lesion(s)?(-57) [...] instrumentation by the physician of record - 37639, Q8.? * Procedure Codes:?26117 DEBRI DE NAIL, 6 OR MORE, Modifiers: XS 26755 TRIM SKIN LESIONS, OVER 4, Modifiers: Q8 [...] Tavarez DPM Date:?2023 Generated for Eunice felipe/Tex/Eugene on:?04/02/2024 01:42 PM EST History and Physical Notes * HPI [...]
--- OUTSIDE RECORDS SUMMARY | 2024-04-02 13:43 | XMS_ITS ---
Author Organization [facility] Address [address] [place] [address] Care Team Providers Care Volunteer Firefighter Name Role Phone Nicola Lebron Primary Care Provider Abigail Juarez [phone] REASON FOR VISIT Nails Encounters Encounter [facility] [address] 03/04/2024 Abigail Tavarez Plan Of Treatment Next Appt Details Provider Name:Abigail Tavarez , 06/17/2024 09:00:00 AM, [address] [place], [address], Progress Notes * Bautista AVERYOB: [birth year] (88 yo F)Acc No.[id number]:03/04/2024 Patient:?Nisreen AVERY :1935???Age:88 Y???Sex:Female Address:[address] [place] [address], [address] * true * Date:? Generated for Printi matteo/Tex/eTransmitting on:?04/02/2024 01:42 PM EST
== END 2024-04-02 13:41 | disposition home or self-care (01) ==
LOC: HO.CT 13:40
PROVIDERS: PCP Internal Medicine; Visit Provider Internal Medicine
DX: N39.0 Urinary tract infection, site not specified (principal)
CPT/HCPCS: 74176

== ENCOUNTER → 2024-04-02 13:43 | Outpatient (BNV) | payer OTHER, SELFPAY | PROVIDERS: PCP Internal Medicine; Visit Provider Radiology Diagnostic Radiology | DX: N39.0 Urinary tract infection, site not specified (principal) | CPT/HCPCS: 74176 ==

== ENCOUNTER 2024-04-30 10:09 | Outpatient (REF) | payer OTHER, SELFPAY ==
--- OUTSIDE RECORDS SUMMARY | 2024-04-30 11:02 | XMS_ITS ---
Author Organization [facility] Address [address] [place] [address] Care Team Providers Care Benefits Director Name Role Phone Nicola Lebron Primary Care Provider Abigail Juarez [phone] Figueroa Encounters Encounter Location Date Provider Diagnosis [facility] [address] [place] [address] 03/29/2024 Abigail Tavarez Plan Of Treatment Next Appt Details Provider Name:Abigail A Corby , 06/17/2024 09:00:00 AM, [address] [place], [address], Progress Notes * June AVERYireDOB: [birth year] (88 yo F)Acc No.[id number]:03/29/2024 Progress Note Patient:?Nisreen AVERY Provider:?Abigail Tavarez DPM :1935???Age:88 Y???Sex:Female D ate:03/29/2024 Address:[address] [place], [place] [address] Pcp:Nicola Lebron Subjective: * Chief Complaints: * [...] Tavarez DPM Date:?2024 Generated for Eunice felipe/Tex/Eugene on:?04/30/2024 11:02 AM EST
--- OUTSIDE RECORDS SUMMARY | 2024-04-30 11:02 | XMS_ITS | Encounter Summary ---
Author Organization [facility] Address [facility] [place] [address] Care Team Providers Care Housing Grant Analyst Name Role Phone Nicola Lebron MD Primary Care Provider Unavailabl e Encounter Details Date Type Department Care Team Description 05/15/2017 Release of Information Medical Records [address] [place] [id number] Abstract, Provider Social History Tobacco Use Types Packs/Day Years Used Date Smoking Tobacco: Never Smokeless Tobacco: Never Alcohol Use Standard Drinks/Week Comments No 0 (1 standard drink = 0.6 oz pur e alcohol) Sex Assigned at Date Recorded Not on file documented as of this encounter Plan of Treatment Not on file documented as of this encounter Visit Diagnoses Not on filedocumented in this encounter Care Teams Housing Grant Analyst Relationship Specialty Start Date End Date Nicola Lebron MD PCP - General Internal Medicine 11/22/14 documented as of this encounter
--- OUTSIDE RECORDS SUMMARY | 2024-04-30 11:02 | XMS_ITS ---
Author Organization [facility] Address [address] [place] [address] Care Team Providers Care Ui Developer Name Role Phone Nicola Lebron Primary Care Provider Abigail Juarez [phone] REASON FOR VISIT Nails Encounters Encounter [facility] Date [facility] [address] 03/04/2024 Abigail Tavarez Plan Of Treatment Next Appt Details Provider Name:Abigail Tavarez , 06/17/2024 09:00:00 AM, [address] [place], [address], Progress Notes * Bautista AVERYOB: [birth year] (88 yo F)Acc No.[id number]:03/04/2024 Patient:?Nisreen AVERY :1935???Age:88 Y???Sex:Female Address:[address] [place] [address], [address] * true * Date:? Generated for Printi matteo/Tex/eTransmitting on:?04/30/2024 11:02 AM EST
--- OUTSIDE RECORDS SUMMARY | 2024-04-30 11:02 | XMS_ITS ---
Author Organization [facility] Address [address] [facility] [place] [address] Care Team Providers Care Composition Board Press Operator Name Role Phone Bernardino Florijeanne Primary Care Provider Unavailabl e Black, Abigail Unavailable [phone] Allergies Allergen (clinical drug ingredient) Drug/Non Drug [...] W/U Status Risk Notes Problem Atherosclerosis of pokagon arteries of the extremities (661387310096476) Atherosclerosis of pokagon artery of both lower extremities, with unspecified presence of clinical manifestation (I70.203) Active confirmed Q7(A), Q8(2B), Q9(1B,2 C) Problem Essential hypertension (31851377) Essential hypertension (I10) Active confirmed Vital Signs Height 5 ft 7 in in 03/23/2024 Weight 198 lbs 03/23/2024 BMI 31.01 kg/m2 03/23/2024 Blood pressure systolic 104 mm Hg 03/23/20 24 Blood pressure diastolic 78 mm Hg 024 Procedures Procedure Date Ordered Date Performed Result Body Sit e 26595-MZQYLYK NAIL, 6 OR MORE 03/23/2024 N/A 24693-XXDT SKIN LESIONS, OVER 4 03/23/2024 N/A Encounters Encounter Location Date Provider Diagnosis [facility] [address] [place] [address] 03/23/2024 Abigail Black Xerosis of skin L85. 3 ; Atherosclerosis of pokagon artery of both lower extremities, with unspecified presence of clinical manifestation I70.203 ; Tinea unguium B35.1 ; Pain in right toe(s) M79.674 and Pain in left toe(s) M79.675 Assessments Encounter Date Diagnosis (ICD Code) Assessment Notes Treatment Notes Treatment Clinical Notes Section Notes 03/23/2024 Xerosis of skin (ICD-10 - L85.3) 03/23/2024 Atherosclerosis of pokagon artery of both lower extremities, with unspecified [...] days Pending Test Test Name Order Date 01713-KZGZLKL NAIL, 6 OR MORE 03/23/2024 75481-FKXI SKIN LESIONS, OVER 4 03/23/20 24 Next Appt Details Follow Up: 2 Months, Reason: Provider Name:Abigail Tavarez , 06/17/2024 09:00:00 AM, [address] [place] [address], [phone], Procedure Notes * Category Sub-Category Detail [...] use of a nail nipper and/or dremel-type stopper grinder, to a more viable healthy nail [...] to maintain effectiveness in symptomatic relief - 43307 Keratoma Treatment Parring or Cutting o f [...] instrumentation by the physician of record - 58522, Q8 Progress Notes * Bautista AVERYOB: [birth year] (88 yo F)Acc No.[id number]:03/23/2024 Progress Note Patient:?Nisreen AVERY Provider:?Abigail Tavarez DPM :1935???Age:88 Y???Sex:Female D ate:03/23/2024 Address:[address] [place], [place] [id number] Pcp:Nicola Lebron Subjective: * Chief Complaints: * [...] ?Children: yes. ?Exercise: yes, light exercise at [employer], [employer] games, knitting. ?Marital status: . 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 * Medications:?TakingVitamin B 12 Losartan Potassium 25 [...] :Acute problem, Uncomplicated (3),Rx Management (4)???2.?Atherosclerosis of pokagon artery of both lower extremities, with unspecified [...] 30 days, 140, Refills 2.?? 3.?Tinea unguium?Procedure: 86476-NJHSDQQ NAIL, 6 OR MORE * Procedures:?Debride Nail [...] use of a nail nipper and/or dremel-type stopper grinder, to a more viable healthy nail [...] to maintain effectiveness in symptomatic relief - 25134.?Keratoma Treatment:?Parring or Cutting of Benign Hyperkeratotic Lesion(s)?(-57) [...] instrumentation by the physician of record - 62434, Q8.? * Procedure Codes:?65610 DEBRI DE NAIL, 6 OR MORE, Modifiers: XS 36108 TRIM SKIN LESIONS, OVER 4, Modifiers: Q8 [...] Tavarez DPM Date:?2023 Generated for Eunice felipe/Tex/Eugene on:?04/30/2024 11:01 AM EST History and Physical Notes * [...]
--- OUTSIDE RECORDS SUMMARY | 2024-04-30 11:02 | XMS_ITS | Clinical Summary ---
Author Organization [facility] Address [address] [place] [address] Care Team Providers Care Manager Social Name Role Phone Nicola Lebron MD Primary Care Provider Unavailabl e Allergies No known active allergies Medications Medication Sig Dispensed Refills Start Date End Date Status Omeprazole 20 MG Tab EC Take 20 mg by mouth daily. 0 Active pravastatin (PRAVACHOL) 10 MG tablet Take 10 mg by mouth daily. 0 Active hydrochlorothiazide (HYDRODIURIL) 25 MG tablet Take 12.5 mg by mouth daily. 0 Active CarBAMazepine (TEGRETOL OR) Take 100 mg by mouth daily. 0 Active aspirin EC 81 MG EC tablet Take 81 mg by mouth daily. 0 Active ammonium lactate (AMLACTIN) 12 % creamIndications:Xerosi s of skin,Hyperkeratosis of skin Apply twice daily to feet. 385 g 3 05/13/2017 Active Active Problems Problem Noted Date Onychomycosis 08/07/2017 Urinary incontinence 08/07/2017 Hypertension 08/07/2017 COPD (chronic obstructive pulmonary dise ase) 08/07/2017 Anxiety 08/07/2017 Esophagitis 08/07/2017 UGI bleed 08/07/2017 Overview: 05/08 Syncope 07/05/2011 Immunizations Name Administration Dates Next Due Influenza (> 6 Months) 12/27/2016 Pneumoccoccal(Adult) Polysaccharide PPSV23 07/09 Family History Medical History Relation Name Comments CA Prostate Brother [place] Mother arthritis Diabetes Sister Relation Name Status Comments Brother Mother Sister Social History Tobacco Use Types Packs/Day Years Used Date Smoking Tobacco: Never Smokeless Tobacco: Never Alcohol Use Standard Drinks/Week Comments No 0 (1 standard drink = 0.6 oz pur e alcohol) Sex Assigned at Date Recorded Not on file Last Filed Vital Signs Vital Sign Reading Time Taken Comments Blood Pressure 120/70 05/19/2018 4:00 PM EST Pulse 60 05/19/2018 4:00 PM EST Temperature 36.7 ??C (98 ??F) 05/19/2018 4:00 PM EST Respiratory Rate 14 05/19/2018 4:00 PM EST Oxygen Saturation - - Inhaled Oxygen Concentration - - Weight 97.5 kg (215 lb) 05/19/2018 4:00 PM EST Height 165.1 cm (5' 5 ) 05/19/2018 4:00 PM EST Body Mass Index 35.78 05/19/2018 4:00 PM EST Plan of Treatment Health Maintenance Due Date Last Done Comments Covid-19 Vaccine (#1) 03/27/1936 DTAP/TDAP/TD (1 - Tdap) 1956 CHOLESTEROL SCREENING 1957 MAMMOGRAM 1977 SHINGLES VACCINE (1 of 2) 09/25/1987 BONE DENSITY SCREENING 2002 PNEUMOCOCCAL VACCINE (2 - PCV) 07/09/2016 07/10/2015 INFLUENZA (#1) 2023 12/27/2016 BMI CHECK/ADVISE 03/24/2024 Care Teams Manager Social Relationship Specialty Start Date End Date Nicola Lebron MD PCP - General Internal Medicine 11/22/14
--- OUTSIDE RECORDS SUMMARY | 2024-04-30 11:02 | XMS_ITS | Patient Health Record ---
[facility] Address [address] [place] [address] Care Team Providers Care Tool Planner Name Role Phone Nicola Lebron Primary Care Provider Vern TavarezAbigail Unavailable [phone] Allergies Allergen (clinical drug ingredient) Drug/Non Drug [...] Status Risk Notes Problem Acquired hallux valgus (34520766) Hallux valgus (acquired), left foot (M20.12) Active confirmed Problem Acquired hallux valgus (25723218) Hallux valgus (acquired), right foot (M20.11) Active confirmed Problem Ulcer of toe (954723834) 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 skin (L97.521) Active confirmed Worse Problem Ulcer of toe (976978394) Non-pressure chronic ulcer of other part of right foot limited to breakdown of skin (L97.511) Active confirmed Problem Acquired hammer toe of right foot (3058691310993000) Other hammer toe(s) (acquired), right foot (M20.41) Active confirmed Problem Acquired hammer toe of left foot (2249990538780617) Other hammer toe(s) (acquired), left foot (M20.42) Active confirmed Problem Hammer toe (807836353) Hammer toe of right foot (M20.41) Active confirmed Problem Atherosclerosis of sokaogon arteries of the extremities (547481678530807) Atherosclerosis of sokaogon artery of both lower extremities, with unspecified presence of clinical manifestation (I70.203) Active confirmed Q7(A), Q8(2B), Q9(1B,2 C) Problem Plantarflexion deformity of foot (568644792) 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 confirmed Problem Essential hypertension (04425510) Essential hypertension (I10) Active confirmed Vital Signs Blood pressure diastolic 78 mm Hg 03/23/2024 Height 5 ft 7 in in 03/23/2024 Blood pressure systolic 104 mm Hg 03/23/2024 Weight 198 lbs 03/23/2024 BMI 31.01 kg/m2 03/23/2024 Procedures Procedure Date Ordered Date Performed Result Body Sit e 99038-WYJAMRP NAIL, 6 OR MORE 06/02/2023 N/A 07497-Nhibhxhb Plate 06/02/2023 N/A 90463- Debride <25 sq cm 06/02/2023 N/A 83508-XZEXLNT NAIL, 6 OR MORE 09/04/2023 N/A 73314- Debride <25 sq cm 09/04/2023 N/A 89846-STVBASD NAIL, 6 OR MORE 12/11/2023 N/A 07827-Omjvbmom Plate 12/11/2023 N/A 54965- Debride <25 sq cm 12/11/2023 N/A 02759-GHELQPR NAIL, 6 OR MORE 03/23/2024 N/A 43442-FMEC SKIN LESIONS, OVER 4 03/23/2024 N/A Encounters Encounter Location Date Provider Diagnosis [address] [address] 06/02/2023 Abigail Black Tinea unguium B35.1 ; 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 skin L97.521 ; Pain in right toe(s) M79.674 ; Pain in left toe(s) M79.675 and Ingrown nail L60.[address] [address] 09/04/2023 Abigail Black Tinea unguium B35.1 ; 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 skin L97.521 ; Pain in right toe(s) M79.674 ; Pain in left toe(s) M79.675 and Edema, lower extremity R60.[address] [address] 12/11/2023 Abigail Black Tinea unguium B35.1 ; 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 skin L97.521 ; Pain in right toe(s) M79.674 ; Pain in left toe(s) M79.675 and Ingrown nail L60.0 [facility] [address] [place] [address] 03/23/2024 Abigail Tavarez Xerosis of skin L85. 3 ; Atherosclerosis of sokaogon artery of both lower extremities, with unspecified presence of clinical manifestation I70.203 ; Tinea unguium B35.1 ; Pain in right toe(s) M79.674 and Pain in left toe(s) M79.675 [facility] [address] [address] 03/04/2024 Abigail Corby Assessments Encounter Date Diagnosis [...] skin (ICD-10 - L85.3) 03/23/2024 Atherosclerosis of sokaogon artery of both lower extremities, with unspecified [...] Treatment Pending Test Test Name Order Date 95178-HWRFICQ NAIL, 6 OR MORE 10/18/2019 92527-SUEPHMR NAIL, 6 OR MORE 12/27/2019 79421-YPXPXIC NAIL, 6 OR MORE 03/13/2020 08569-TSZRSTW NAIL, 6 OR MORE 07/13/2020 98660-VADQCKT NAIL, 6 OR MORE 10/16/2020 08280-GKQUXNK NAIL, 6 OR MORE 02/05/2021 88468-AOJLDLW NAIL, 6 OR MORE 07/19/2021 84033-PHFFTPP NAIL, 6 OR MORE 10/18/2021 82523-YUJWIJP NAIL, 6 OR MORE 01/21/2022 02513-UCCWLQN NAIL, 6 OR MORE 04/29/2022 34669-BJVQRHV NAIL, 6 OR MORE 07/08/2022 27175-GYODDJO NAIL, 6 OR MORE 09/16/2022 44616-MWUCHWN NAIL, 6 OR MORE 12/02/2022 37612-TKVGZJV NAIL, 6 OR MORE 02/24/2023 81033-NPQHONU NAIL, 6 OR MORE 06/02/2023 22737-IEGGAWU NAIL, 6 OR MORE 09/04/2023 21172-THICAVG NAIL, 6 OR MORE 12/11/2023 09219-XAWHNIP NAIL, 6 OR MORE 03/23/2024 63425-Cdeoggzm Plate 12/11/2023 51097-Itgpylij Plate 09/16/2022 56449-Evojatwx Plate 06/02/2023 63000-Ddhtghso Plate 07/19/2021 09844-Unetdioo Plate 10/18/2021 99499-Xltitdcd Plate 07/13/2020 60134-Wmnqohmp Plate 02/05/2021 53469-Mtyvysgx Plate 10/18/2019 75485- Debride <25 sq cm 10/18/2019 63685- Debride <25 sq cm 12/27/2019 71247- Debride <25 sq cm 07/13/2020 54255- Debride <25 sq cm 03/13/2020 31105- Debride <25 sq cm 07/19/2021 58345- Debride <25 sq cm 02/05/2021 59696- Debride <25 sq cm 10/18/2021 23611- Debride <25 sq cm 04/29/2022 51302- Debride <25 sq cm 01/21/2022 25065- Debride <25 sq cm 02/24/2023 71114- Debride <25 sq cm 12/02/2022 90583- Debride <25 sq cm 09/16/2022 33660- Debride <25 sq cm 07/08/2022 86156- Debride <25 sq cm 06/02/2023 70420- Debride <25 sq cm 12/11/2023 28563- Debride <25 sq cm 09/04/2023 41855 I&D ABSCESS- SIMPLE,SINGLE 021 88068-ZXMQ SKIN LESIONS, OVER 4 03/23/20 24 Next Appt Details Provider Name:Abigail Tavarez , 06/17/2024 09:00:00 AM, [address] [place] [address], [phone], Insurance Providers Payer Name Payer Address Payer Phone Subscriber Number Group Number Insured Name Patient Relationship to Insured Coverage Start Date Coverage End Date [facility] Adv [address] [place] [id number] Gerardo hinson Claire Self - patient is the insured Medical (General) History Medical History History ICD Code Anxiety Arthritis Back,Hip,and Knee pain Cholesterol High blood pressure Joint implants/screws Transfusions Surgical History Surgery Date(Month/Year) wrist surgery hysterectomy
--- OUTSIDE RECORDS SUMMARY | 2024-04-30 11:02 | XMS_ITS | Clinical Summary ---
Author Organization [employer] Address [address] [facility] [address] [place] [address] Care Team Providers Care Grants Manager Name Role Phone Unavailable Primary Care Provider Unavailabl e Immunizations Name Administration Dates Next Due Influenza, seasonal, injectable, preservative fr ee 12/10/2023 Social History Tobacco Use Types Packs/Day Years Used Date Smoking Tobacco: Never Assessed Comments Unknown Sex and Gender Information Value Date Recorded Sex Assigned at Female 12/12/2023 12:31 PM EDT Legal Sex Female 3:25 PM EDT Gender Identity Female 12/12/2023 12:31 PM EDT Sexual Orientation Straight 12/12/2023 1: 21 PM EDT Plan of Treatment Health Maintenance Due Date Last Done Comments Depression Screening 1935 Lipid Panel 1935 SDOH Screening 1935 Alcohol/Substance Use Screening 1949 Tobacco Screening 1947 Zoster Vaccines (1 of 2) 09/25/1987 RSV Patients and Patients Aged 60 years or older (1 - 1-dose 75+ series) 2012 DTaP/Tdap/Td Vaccines (1 - Tdap) 03/03/2019 03/02/2019 COVID-19 Vaccine ( season) 2023 02/25/2021, 05/23/2020, 05/02/2020 Pneumococcal Vaccine: 50+ Years Completed 12/17/2021, 07/10/2015 Influenza Vaccine Completed 12/10/2023, , 12/26/2020, Additional history exists HIB Vaccines Aged Out No longer eligi ble based on patient's age to complete this topic HPV Vaccines Aged Out No longer eligi ble based on patient's age to complete this topic Hepatitis A Vaccines Aged Out No long er eligible based on patient's age to complete this topic Hepatitis B Vaccines Aged Out No long er eligible based on patient's age to complete this topic IPV Vaccines Aged Out No longer eligi ble based on patient's age to complete this topic Meningococcal Vaccine Aged Out No yann kadi eligible based on patient's age to complete this topic RSV under 20 months Aged Out No longe r eligible based on patient's age to complete this topic Rotavirus Vaccines Aged Out No longer eligible based on patient's age to complete this topic Insurance [facility]
[2024-04-30 11:14] LABS: Influenza A PCR NEGATIVE (Negative); Influenza B PCR NEGATIVE (Negative); Resp Syncy Virus RNA Qual PCR NEGATIVE (Negative); SARS COV2 PCR INHOUSE NEGATIVE (Negative)
== END 2024-04-30 10:10 | disposition home or self-care (01) ==
LOC: HO.LAB 10:09
PROVIDERS: PCP Internal Medicine; Visit Provider Internal Medicine
DX: R05.9 Cough, unspecified (principal)
CPT/HCPCS: 0241U

== ENCOUNTER 2024-05-04 13:29 | Outpatient (AMB) | payer OTHER, SELFPAY ==
--- NOTE | 2024-05-04 13:41 | A.OFFPC_ITS ---
Vital Signs 05/04/24 13:43 Height 5 ft 7 in Weight 206 lb BMI 32.3 BP 120/60 Blood Pressure Location Lt brachial Position Sitting Pulse 70 Pulse Source Pulse Oximeter Temp 97.1 F Temp Source Skin Pulse Oximetry (%) 97 Oxygen Delivery Method Room Air Intake Visit Reasons: wheezing/ Intake Note: Patient is here to follow up on wheezing and coughing ongoing for a week. Site Worker Required: No Outpatient Clerk: Present Accompanied by: Daughter Allergies lisinopril Allergy (Unknown, Verified 05/04/24 13:43) cough Amlodipine Adverse Reaction (Intermediate, Uncoded 05/04/24 13:43) Leg swelling Medication List - Last Reconciled 05/04/24 by Jane Espinal PA-C acetaminophen (Tylenol Extra Strength) 1,000 mg PO Q6H PRN aspirin 81 mg PO DAILY [BATH AND SHOWER STEP WITH HANDLE As directed] benzonatate 200 mg PO BID-TID PRN cholecalciferol (vitamin D3) (Vitamin D3) 50 mcg PO DAILY [Contour plus bladder pads As directed] cyanocobalamin (vitamin B-12) (Vitamin B-12) 1,000 mcg PO MO [EASY RISE WALKER As directed] estradiol 0.01%(0.1mg/gram) 1 g vaginal TUTH [flushable toilet wipes As directed] fluticasone propionate 50 mcg/actuation 1 spray intranasal DAILY [gloves As directed] [gloves As directed] ketoconazole 2% apply to under the breast and under belly fold topically daily; losartan 25 mg PO DAILY mirabegron ER (Myrbetriq) 25 mg PO DAILY 30 days mirtazapine 7.5 mg PO BEDTIME PRN nystatin 1 appl topical DAILY PRN omeprazole 20 mg PO DAILY@0630 [Pad liners for bed and chair As directed] [PAIN RELIEVING PATCHES WITH HEAT As directed] pravastatin 20 mg PO DAILY [reclining lift chair. As directed] [underwear pull ups 3 per day As directed] Tobacco use date assessed: 05/04/24 Fall risk assessment: No Falls in past year Last assessed Fall Risk: 05/04/24 Dental Screening Dental Screen Date: 05/04/24 Did you have a dental visit in the last 12 months?: No Did you have a dental problem in the last 6 months where you did not have access to dental care?: No Was dental information given to patient?: No HPI wheezing/ HPI Details 88-year-old female with past medical his tory of impaired glucose tolerance, hypercholesterolemia, hypertension, COPD, GERD, seizure disorder, cognitive impairment, generalized anxiety disorder last seen by Dr. Lebron 01/2024 coming in for acute problem. Patient presents today with her daughter who reports acute cough with associated wheezing. Symptoms began a week ago, progressively leading to fatigue without fever or nasal congestion. Patient noted the cough was dry and nonproductive. Initially treated with oexm-csw-ajdfmba Delsym but noticed the blood pressure was increasing last night. Patient previously diagnosed with COPD and has a history of albuterol inhaler but has not had 1 in many years. Her cough has been improving over the last week but is persistent. Daughter mentions hearing occasional wheeze at night. [facility] Medical History Altered mental status Acute encephalopathy Bilateral arm pain Osteoarthritis of knees, bilateral TIA (transient ischemic attack) Seizure disorder Knee osteoarthritis Urinary incontinence GERD (gastroesophageal reflux disease) COPD (chronic obstructive pulmonary disease) Obesity (BMI 30-39.9) Hypertension UTI (urinary tract infection) Hypertriglyceridemia Impaired glucose tolerance Vitamin D deficiency Surgical History H/O oophorectomy History of abdominal hysterectomy History of bilateral cataract extraction H/O left wrist surgery Family History Father No problems noted. Mother Past heart attack Sister Diabetes Brother Prostate cancer Social History Household Members: Family Housing: House Alcohol intake: never Patient Tobacco Use Status: Never used Tobacco Tobacco use type: Cigarette e-Cigarette/Vaping Use: Never Used Second Hand Smoke Exposure: No service: No Current occupational status: retired Cognitive needs: Yes (cane, walker) Hearing needs: No Vision needs: Yes (glasses) Questionnaire PHQ-9 Over the last 2 weeks, how often have you been bothered by any of the following problems? 1. Little interest or pleasure in doing things: not at all 2. Feeling down, depressed, or hopeless: not at all 3. Trouble falling or staying asleep, or sleeping too much: not at all 4. Feeling tired or having little energy: not at all 5. Poor appetite or overeating: not at all 6. Feeling bad about yourself - or that you are a failure or have let yourself or your family down: not at all 7. Trouble concentrating on things, such as reading the newspaper or watching television: not at all 8. Moving or speaking so slowly that other people could have noticed. Or the opposite - being so fidgety or restless that you have been moving around a lot more than usual: not at all 9. Thoughts that you would be better off or of hurting yourself in some way: not at all Total score: 0 Depression Screening Interpretation: Negative Depression Screening Done: Yes Source: Developed by Drs. Gabriel Jiménez, Krupa Paez, Jesus Quintana and colleagues, with an educational akila from [employer]. Thrive Questionnaire Date Thrive assessed: 05/04/24 I am a: Patient What is your living situation today?: I have a steady place to live Within the past 12 months, did the food you bought not last and you didn't have the money to get more?: Never true Within the past 12 months, did you worry whether your food would run out before you got money to buy more?: Never true Do you have trouble paying for medicines?: No Do you have trouble getting transportation to medical appointments?: No Do you have trouble paying your heating and electricity bill?: No Do you have trouble taking care of your child, family member or friend?: No Do you have trouble with day-to-day activities such as bathing, preparing meals, shopping, managing finances, etc.?: No Are you currently unemployed and looking for a job?: No Are you interested in more education?: No Please select the resources that you would like help with: None Currently or been in a relationship where the following occur: No concerns reported THRIVE Score: 0 AUDIT C Alcohol Use Questionnaire (AUDIT-C) 1. How often do you have a drink containing alcohol?: Never Total Score: 0 RUBINA-7 AMB Questionnaire RUBINA-7 Date RUBINA - 7 assessed: 05/04/24 Feeling nervous, anxious, or on edge: 0 = Not at all Not being able to stop or control worryin = Not at all Worrying too much about different things: 0 = Not at all Trouble relaxin = Not at all Being so restless that it is hard to sit still: 0 = Not at all Becoming easily annoyed or irritable: 0 = Not at all Feeling afraid as if something awful might happen: 0 = Not at all Total RUBINA-7 score (0-4 normal; 5-9 mild; 10-14 moderate; 15-21 severe): 0 Source: Developed by Drs. Gabriel Jiménez, Krupa Paez, Jesus Quintana and colleagues, with an educational akila from [employer]. Review of Systems Const Denies body aches, Denies chills, Denies fever(s), Denies headache(s) and Denies poor appetite Eyes Reports no additional complaints ENT Denies dysphagia, Denies dizziness, Denies headache(s) and Denies odynophagia Card Denies chest pain, Denies syncope, Denies edema, Denies irregular heart rhythm, Denies lightheadedness and Denies dyspnea Resp Reports cough, Denies hemoptysis and Denies dyspnea GI Denies abdominal pain, Denies constipation, Denies dysphagia, Denies diarrhea, Denies nausea, Denies odynophagia and Denies vomiting Reports no additional complaints Musc Reports no additional complaints and Denies abnormal gait Skin/Breast Reports system reviewed and no additional complaints, except as documented Neuro Denies abnormal gait, Denies dizziness, Denies syncope and Denies headache(s) Psych Reports no additional complaints Physical exam (Primary Care) Vital Signs: Last Vital Signs Temp 97.1 F 05/04/24 13:43 Pulse 70 05/04/24 13:43 BP 120/60 05/04/24 13:43 Pulse Ox 97 05/04/24 13:43 Oxygen Delivery Method Room Air 05/04/24 13:43 BMI result Body Mass Index 32.3 Tobacco/Smoking Status: Tobacco use Status Tobacco use date assessed 05/04/24 05/04/24 13:48 Patient Tobacco Use Status Never used Tobacco 05/04/24 13:42 Tobacco use type Cigarette 05/04/24 13:42 e-Cigarette/Vaping Use Never Used 05/04/24 13:42 PHQ-9: PHQ-9 Score PHQ-9: Total score 0 05/04/24 13:48 Depression Screening Interpretation: Negative Thrive Assessment: Date of Thrive Assessment Date Thrive assessed 05/04/24 05/04/24 13:48 Currently or been in a relationship where the following occur: No concerns reported Const General: cooperative, healthy appearing, comfortable and no acute distress Orientation/consciousness: patient oriented x3 HENMT Head: Yes normocephalic Ears: hearing grossly normal bilaterally General nose exam: Normal external nose present Eyes General: appearance normal, both eyes and all related structures Conjunctivae: conjunctivae normal Neck Neck: Yes full ROM and Yes no lymphadenopathy Resp Effort & Inspection: normal respiratory effort Auscultation: clear to auscultation bilaterally, no crackles, no rales, no rhonchi and no wheezes Cardio Rate: regular rate Rhythm: regular rhythm Skin General skin exam: no rashes or lesions noted Neuro General: patient oriented x3 Gait exam (Neuro): Normal gait present Extrem General: Yes normal to inspection, Yes full ROM and No edema Psych Affect: normal affect Attitude: cooperative Insight: Good insight present (Psych) Judgement: Good judgement present (Psych) Coding Level of Care Code Est Pt Level 3 (53261) Diagnoses Essential hypertension I10 Hypertension type: essential hypertension Impaired glucose tolerance R73.02 Pulmonary emphysema, unspecified emphysema type J43.9 COPD type: emphysema Emphysema type: unspecified Obesity (BMI 30-39.9) E66.9 Gastroesophageal reflux disease without esophagitis K21.9 Esophagitis presence: without esophagitis Cough R05.9 Assessment & Plan Assessment & Plan (1) Hypertension: Code(s): I10 - Essential (primary) hypertension Category: Medical Qualifiers: Hypertension type: essential hypertension Qualified Code(s): I10 - Essential (primary) hypertension Plan: Continue on current blood pressure medication. Avoid salt intake and encourage healthy diet and regular exercise. (2) Impaired glucose tolerance: Code(s): R73.02 - Impaired glucose tolerance (oral) Category: Medical Plan: Decrease the amount of carbohydrates such as pasta, bread, rice, and potatoes and limit the amount of sweets. Although fruits are generally healthy they should be eaten in moderation as they are still high in sugar. (3) COPD (chronic obstructive pulmonary disease): Code(s): J44.9 - Chronic obstructive pulmonary disease, unspecified Category: Medical Qualifiers: COPD type: emphysema Emphysema type: unspecified Qualified Code(s): J43.9 - Emphysema, unspecified Plan: Patient has a previous diagnosis of COPD but has not had inhalers and many years. (4) Obesity (BMI 30-39.9): Code(s): E66.9 - Obesity, unspecified Category: Medical Plan: Healthy diet and regular exercise is encouraged. (5) GERD (gastroesophageal reflux disease): Code(s): K21.9 - Gastro-esophageal reflux disease without esophagitis Category: Medical Qualifiers: Esophagitis presence: without esophagitis Qualified Code(s): K21.9 - Gastro-esophageal reflux disease without esophagitis Plan: Avoid trigger foods such as citrus, tomato products, soda, caffeine, spicy foods and other foods that may be irritating to your stomach. Avoid laying flat 3-4 hours after eating and elevate the head of the bed 30 degrees to prevent acid from moving into the esophagus. Discussed with patient that dry cough can sometimes mean exacerbation of GERD symptoms. Advised to follow instructions above. (6) Cough: Code(s): R05.9 - Cough, unspecified Category: Medical Plan: The management for the patient's current respiratory complaints involves taking Mucinex and occasionally an inhaler to address wheezing and cough. It's crucial to manage her intake of medications like Delsym, which could affect her blood pressure adversely. Monitoring the improvement of the respiratory symptoms is essential, and a chest x-ray will only be pursued if symptoms either persist or worsen. Considering her history, careful observation of her blood pressure is vital due to potential UTI flare-ups. Her condition will be reassessed in two weeks with Dr. Lebron unless significant changes in her respiratory or general health necessitate earlier intervention. Plan Patient was informed and verbally consented to the use of an ambient scribe for clinic note documentation during this visit. This note was constructed using voice recognition software. While every effort has been made to ensure accuracy and it software engineer, still areas may have been included sometimes these areas may affect the content or meeting of the given symptoms. Total time spent caring for the patient today was 20 minutes. This includes time spent before the visit reviewing the chart, time spent during the visit, and time spent after the visit and documentation. Medications: New guaifenesin ER (Mucinex) 600 mg PO BID 14 tabs 0RF albuterol sulfate 90 mcg/actuation 1 inh inhalation QID PRN 8.5 grams 0RF shortness of breath or wheezing
[2024-05-04 13:43] VITALS: BP 120/60; PULSE 70; TEMP 36.2; O2SAT 97; BMI 32.3
--- OUTSIDE RECORDS SUMMARY | 2024-05-04 14:36 | XMS_ITS | Clinical Summary ---
Author Organization [employer] Address [address] [facility] [address] [place] [address] Care Team Providers Care Returned Item Clerk Name Role Phone Unavailable Primary Care Provider [...] patient's age to complete this topic Insurance [facility]
--- OUTSIDE RECORDS SUMMARY | 2024-05-04 14:36 | XMS_ITS | Encounter Summary ---
Author Organization [facility] Address [facility] [place] [address] Care Team Providers Care Psychiatry Resident Name Role Phone Nicola Lebron MD Primary Care Provider Unavailabl e Encounter Details Date Type Department Care Team Description 05/15/2017 Release of Information Medical Records [address] [place] [id number] Abstract, Provider Social History Tobacco Use Types [...] on filedocumented in this encounter Care Teams Psychiatry Resident Relationship Specialty Start Date End Date Nicola Lebron MD PCP - General Internal Medicine 11/22/14 documented as of this encounter
== END 2024-05-04 14:18 | disposition home or self-care (01) ==
PROVIDERS: PCP Internal Medicine
DX: J43.9 Emphysema, unspecified (principal); I10 Essential (primary) hypertension; E66.9 Obesity, unspecified; Z68.32 Body mass index [BMI] 32.0-32.9, adult; R73.02 Impaired glucose tolerance (oral); K21.9 Gastro-esophageal reflux disease without esophagitis; R05.9 Cough, unspecified

== ENCOUNTER → 2024-05-04 13:29 | Outpatient (BNVA) | payer OTHER, SELFPAY | PROVIDERS: PCP Internal Medicine | DX: I10 Essential (primary) hypertension (principal); R73.02 Impaired glucose tolerance (oral); J43.9 Emphysema, unspecified; E66.9 Obesity, unspecified; K21.9 Gastro-esophageal reflux disease without esophagitis; R05.9 Cough, unspecified | CPT/HCPCS: 99212 ==

== ENCOUNTER 2024-05-12 11:00 | Outpatient (REF) | payer OTHER, SELFPAY ==
[2024-05-12 11:30] LABS: Appearance Urine Cloudy; Color Urine Yellow; Glucose Urine UA Negative (Negative); Leukocyte Esterase Urine Small (1+) (Negative); Nitrite Urine Positive (Negative); PH 8.5 (5.0-9.0); Specific Gravity - Urine 1.015 (1.005-1.025); UMIC TRIGGER UACC YES; Urine Blood Negative (Negative); Urine Ketones Negative (Negative); Urine Protein Negative (Neg-Trace)
[2024-05-12 11:43] LABS: Bacteria Urine 4+ (None Seen); Hyaline Casts Urine 0-2 /LPF (0-2); Squamous Epithelial Cell Urine 0-2 /HPF (0-2); UACC Culture Trigger YES
--- OUTSIDE RECORDS SUMMARY | 2024-05-12 11:47 | XMS_ITS | Clinical Summary ---
Author Organization [employer] Address [address] [facility] [address] [place] [address] Care Team Providers Care Button Sawyer Name Role Phone Unavailable Primary Care Provider [...] patient's age to complete this topic Insurance [facility]
--- OUTSIDE RECORDS SUMMARY | 2024-05-12 11:47 | XMS_ITS | Patient Health Record ---
[facility] Address [address] [place] [address] Care Team Providers Care Cable Former Name Role Phone Nicola Lebron Primary Care Provider Vern TavarezAbigail Unavailable [phone] Allergies Allergen (clinical drug ingredient) Drug/Non Drug [...] Status Risk Notes Problem Acquired hallux valgus (73248764) Hallux valgus (acquired), left foot (M20.12) Active confirmed Problem Acquired hallux valgus (05860715) Hallux valgus (acquired), right foot (M20.11) Active confirmed Problem Ulcer of toe (915199771) 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 skin (L97.521) Active confirmed Worse Problem Ulcer of toe (252321911) Non-pressure chronic ulcer of other part of right foot limited to breakdown of skin (L97.511) Active confirmed Problem Acquired hammer toe of right foot (9826552203905953) Other hammer toe(s) (acquired), right foot (M20.41) Active confirmed Problem Acquired hammer toe of left foot (1646495149719480) Other hammer toe(s) (acquired), left foot (M20.42) Active confirmed Problem Hammer toe (082563236) Hammer toe of right foot (M20.41) Active confirmed Problem 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 (513145760098156) Atherosclerosis of [place] artery of both lower extremities, with unspecified presence of clinical manifestation (I70.203) Active confirmed Q7(A), Q8(2B), Q9(1B,2 C) Problem Plantarflexion deformity of foot (267483219) 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 confirmed Problem Essential hypertension (58200410) Essential hypertension (I10) Active confirmed Vital Signs Blood pressure diastolic 78 mm Hg 03/23/2024 Height 5 ft 7 in in 03/23/2024 Blood pressure systolic 104 mm Hg 03/23/2024 Weight 198 lbs 03/23/2024 BMI 31.01 kg/m2 03/23/2024 Procedures Procedure Date Ordered Date Performed Result Body Sit e 10865-ZSDKTLE NAIL, 6 OR MORE 06/02/2023 N/A 08770-Pceiyfau Plate 06/02/2023 N/A 61472- Debride <25 sq cm 06/02/2023 N/A 36635-FSUZZHD NAIL, 6 OR MORE 09/04/2023 N/A 52934- Debride <25 sq cm 09/04/2023 N/A 57256-RZXMCGC NAIL, 6 OR MORE 12/11/2023 N/A 22138-Saqsuxgw Plate 12/11/2023 N/A 49135- Debride <25 sq cm 12/11/2023 N/A 95178-VXBHTWL NAIL, 6 OR MORE 03/23/2024 N/A 85850-WVYO SKIN LESIONS, OVER 4 03/23/2024 N/A Encounters Encounter Location Date Provider Diagnosis [address] [address] 06/02/2023 Abigail Black Tinea unguium B35.1 ; 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 skin L97.521 ; Pain in right toe(s) M79.674 ; Pain in left toe(s) M79.675 and Ingrown nail L60.[address] [address] 09/04/2023 Abigail Black Tinea unguium B35.1 ; 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 skin L97.521 ; Pain in right toe(s) M79.674 ; Pain in left toe(s) M79.675 and Edema, lower extremity R60.[address] [address] 12/11/2023 Abigail Black Tinea unguium B35.1 ; 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 skin L97.521 ; Pain in right toe(s) M79.674 ; Pain in left toe(s) M79.675 and Ingrown nail L60.0 [facility] [place] [address] [place] [address] 03/23/2024 Abigail Tavarez Xerosis of skin L85. 3 ; Atherosclerosis of [place] artery of both lower extremities, with unspecified presence of clinical manifestation I70.203 ; Tinea unguium B35.1 ; Pain in right toe(s) M79.674 and Pain in left toe(s) M79.675 [facility] [address] [address] 03/04/2024 Abigail Corby Assessments Encounter Date Diagnosis [...] skin (ICD-10 - L85.3) 03/23/2024 Atherosclerosis of [place] artery of both lower extremities, with unspecified [...] Treatment Pending Test Test Name Order Date 93198-IKDAOZM NAIL, 6 OR MORE 10/18/2019 79984-IGCMVQW NAIL, 6 OR MORE 12/27/2019 23192-MKDMKYX NAIL, 6 OR MORE 03/13/2020 18828-JLRSRAW NAIL, 6 OR MORE 07/13/2020 07527-SRDLXXP NAIL, 6 OR MORE 10/16/2020 22927-GOADOIO NAIL, 6 OR MORE 02/05/2021 69829-HEDIBYE NAIL, 6 OR MORE 07/19/2021 23037-QGBCZNW NAIL, 6 OR MORE 10/18/2021 57892-WCNJCXW NAIL, 6 OR MORE 01/21/2022 63339-EOWOSMY NAIL, 6 OR MORE 04/29/2022 94692-HZKXYSH NAIL, 6 OR MORE 07/08/2022 38880-OYFDBIG NAIL, 6 OR MORE 09/16/2022 42517-ETMRPBM NAIL, 6 OR MORE 12/02/2022 02457-AUSBYGD NAIL, 6 OR MORE 02/24/2023 08854-ABRDXPE NAIL, 6 OR MORE 06/02/2023 99701-DUVSFYT NAIL, 6 OR MORE 09/04/2023 75157-EQOYVYS NAIL, 6 OR MORE 12/11/2023 42116-QRGPKDF NAIL, 6 OR MORE 03/23/2024 37064-Jvdqlsyl Plate 12/11/2023 96987-Qdwooqfx Plate 09/16/2022 71165-Xzkmrhnk Plate 06/02/2023 65625-Pqgimojw Plate 07/19/2021 86190-Hgzlppfy Plate 10/18/2021 27897-Hzdrwvaj Plate 07/13/2020 51589-Xmmmemkg Plate 02/05/2021 13146-Nvacytmx Plate 10/18/2019 47798- Debride <25 sq cm 10/18/2019 14320- Debride <25 sq cm 12/27/2019 01662- Debride <25 sq cm 07/13/2020 81378- Debride <25 sq cm 03/13/2020 86511- Debride <25 sq cm 07/19/2021 62815- Debride <25 sq cm 02/05/2021 10052- Debride <25 sq cm 10/18/2021 94964- Debride <25 sq cm 04/29/2022 31396- Debride <25 sq cm 01/21/2022 41156- Debride <25 sq cm 02/24/2023 63089- Debride <25 sq cm 12/02/2022 29519- Debride <25 sq cm 09/16/2022 42460- Debride <25 sq cm 07/08/2022 78604- Debride <25 sq cm 06/02/2023 02801- Debride <25 sq cm 12/11/2023 60351- Debride <25 sq cm 09/04/2023 98010 I&D ABSCESS- SIMPLE,SINGLE 021 56060-NFAT SKIN LESIONS, OVER 4 03/23/20 24 Next Appt Details Provider Name:Abigail Tavarez , 06/17/2024 09:00:00 AM, [address] [place] [address], [phone], Insurance Providers Payer Name Payer Address Payer Phone Subscriber Number Group Number Insured Name Patient Relationship to Insured Coverage Start Date Coverage End Date [facility] Adv [address] [place] [id number] Gerardo hinson Claire Self - patient is the insured Medical (General) History Medical History History ICD Code Anxiety Arthritis Back,Hip,and Knee pain Cholesterol High blood pressure Joint implants/screws Transfusions Surgical History Surgery Date(Month/Year) wrist surgery hysterectomy
--- OUTSIDE RECORDS SUMMARY | 2024-05-12 11:47 | XMS_ITS ---
Author Organization [facility] Address [address] [place] [address] Care Team Providers Care Yarn Rewinder Name Role Phone Nicola Lebron Primary Care Provider Abigail Juarez [phone] REASON FOR VISIT Nails Encounters Encounter [facility] Date [facility] [address] 03/04/2024 Abigail Tavarez Plan Of Treatment Next Appt Details Provider Name:Abigail Tavarez , 06/17/2024 09:00:00 AM, [address] [place], [address], Progress Notes * Bautista AVERYOB: [birth year] (88 yo F)Acc No.[id number]:03/04/2024 Patient:?Nisreen AVERY :1935???Age:88 Y???Sex:Female Address:[address] [place] [address], [address] * true * Date:? Generated for Printi matteo/Tex/eTransmitting on:?05/12/2024 11:46 AM EST
--- OUTSIDE RECORDS SUMMARY | 2024-05-12 11:47 | XMS_ITS ---
Author Organization [facility] Address [address] [place] [address] Care Team Providers Care Plumber Maintenance Name Role Phone Nicola Lebron Primary Care Provider Abigail Juarez [phone] Figueroa Encounters Encounter Location Date Provider Diagnosis [facility] [address] [place] [address] 03/29/2024 Abigail Tavarez Plan Of Treatment Next Appt Details Provider Name:Abigail A Corby , 06/17/2024 09:00:00 AM, [address] [place], [address], Progress Notes * June AVERYireDOB: [birth year] (88 yo F)Acc No.[id number]:03/29/2024 Progress Note Patient:?Nisreen AVERY Provider:?Abigail Tavarez DPM :1935???Age:88 Y???Sex:Female D ate:03/29/2024 Address:[address] [place], [place] [address] Pcp:Nicola Lebron Subjective: * Chief Complaints: * [...] Tavarez DPM Date:?2024 Generated for Eunice felipe/Tex/Eugene on:?05/12/2024 11:46 AM EST
--- OUTSIDE RECORDS SUMMARY | 2024-05-12 11:47 | XMS_ITS ---
Author Organization [facility] Address [address] [place] [address] Care Team Providers Care Estimator Binding Name Role Phone Bernardino Florijeanne Primary Care Provider Unavailabl e Black, Abigail Unavailable [phone] Allergies Allergen (clinical drug ingredient) Drug/Non Drug [...] W/U Status Risk Notes Problem Atherosclerosis of [place] arteries of the extremities (512445311319264) Atherosclerosis of [place] artery of both lower extremities, with unspecified presence of clinical manifestation (I70.203) Active confirmed Q7(A), Q8(2B), Q9(1B,2 C) Problem Essential hypertension (48101748) Essential hypertension (I10) Active confirmed Vital Signs Blood pressure systolic 104 mm Hg 03/23/20 24 Blood pressure diastolic 78 mm Hg 024 Height 5 ft 7 in in 03/23/2024 Weight 198 lbs 03/23/2024 BMI 31.01 kg/m2 03/23/2024 Procedures Procedure Date Ordered Date Performed Result Body Sit e 73432-ZSHSIKW NAIL, 6 OR MORE 03/23/2024 N/A 97806-MISU SKIN LESIONS, OVER 4 03/23/2024 N/A Encounters Encounter Location Date Provider Diagnosis [facility] [place] [address] [place] [address] 03/23/2024 Abigail Black Xerosis of skin L85. 3 ; Atherosclerosis of [place] artery of both lower extremities, with unspecified presence of clinical manifestation I70.203 ; Tinea unguium B35.1 ; Pain in right toe(s) M79.674 and Pain in left toe(s) M79.675 Assessments Encounter Date Diagnosis (ICD Code) Assessment Notes Treatment Notes Treatment Clinical Notes Section Notes 03/23/2024 Xerosis of skin (ICD-10 - L85.3) 03/23/2024 Atherosclerosis of [place] artery of both lower extremities, with unspecified [...] days Pending Test Test Name Order Date 06991-MFCDSRN NAIL, 6 OR MORE 03/23/2024 78744-GQPG SKIN LESIONS, OVER 4 03/23/20 24 Next Appt Details Follow Up: 2 Months, Reason: Provider Name:Abigail Tavarez , 06/17/2024 09:00:00 AM, [address] [place] [address], [phone], Procedure Notes * Category Sub-Category Detail [...] use of a nail nipper and/or dremel-type barytes grinder, to a more viable healthy nail [...] to maintain effectiveness in symptomatic relief - 57976 Keratoma Treatment Parring or Cutting o f [...] instrumentation by the physician of record - 83653, Q8 Progress Notes * Bautista AVERYOB: [birth year] (88 yo F)Acc No.[id number]:03/23/2024 Progress Note Patient:?Nisreen AVERY Provider:?Abigail Tavarez DPM :1935???Age:88 Y???Sex:Female D ate:03/23/2024 Address:[address] [place], [place] [address] Pcp:Nicola Lebron Subjective: * Chief Complaints: * [...] ?Children: yes. ?Exercise: yes, light exercise at [employer], [employer] games, knitting. ?Marital status: . 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 * Medications:?TakingVitamin B 12 Losartan Potassium 25 [...] :Acute problem, Uncomplicated (3),Rx Management (4)???2.?Atherosclerosis of [place] artery of both lower extremities, with unspecified [...] 30 days, 140, Refills 2.?? 3.?Tinea unguium?Procedure: 70486-CAFFMWP NAIL, 6 OR MORE * Procedures:?Debride Nail [...] use of a nail nipper and/or dremel-type barytes grinder, to a more viable healthy nail [...] to maintain effectiveness in symptomatic relief - 11166.?Keratoma Treatment:?Parring or Cutting of Benign Hyperkeratotic Lesion(s)?(-57) [...] instrumentation by the physician of record - 02957, Q8.? * Procedure Codes:?47256 DEBRI DE NAIL, 6 OR MORE, Modifiers: XS 99889 TRIM SKIN LESIONS, OVER 4, Modifiers: Q8 [...] Tavarez DPM Date:?2023 Generated for Eunice felipe/Tex/Eugene on:?05/12/2024 11:46 AM EST History and Physical Notes * [...]
== END 2024-05-12 11:01 | disposition home or self-care (01) ==
LOC: HO.LNP 11:00
PROVIDERS: Visit Provider Internal Medicine
DX: R32 Unspecified urinary incontinence (principal); R30.0 Dysuria
CPT/HCPCS: 81001; 87086

== ENCOUNTER 2024-05-14 10:18 | Outpatient (REF) | payer OTHER, SELFPAY ==
[2024-05-14 10:40] LABS: MANUAL DIFF FLAG NO
--- OUTSIDE RECORDS SUMMARY | 2024-05-14 11:14 | XMS_ITS | Patient Health Record ---
Author Organization [facility] Address [address] [place] [address] Care Team Providers Care Basic Combatant Swimmer Name Role Phone Nicola Lebron Primary Care Provider Vern TavarezAbigail Unavailable [phone] Allergies Allergen (clinical drug ingredient) Drug/Non Drug [...] Status Risk Notes Problem Acquired hallux valgus (56902025) Hallux valgus (acquired), left foot (M20.12) Active confirmed Problem Acquired hallux valgus (30878408) Hallux valgus (acquired), right foot (M20.11) Active confirmed Problem Ulcer of toe (736346239) 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 skin (L97.521) Active confirmed Worse Problem Ulcer of toe (421945690) Non-pressure chronic ulcer of other part of right foot limited to breakdown of skin (L97.511) Active confirmed Problem Acquired hammer toe of right foot (1362403562569898) Other hammer toe(s) (acquired), right foot (M20.41) Active confirmed Problem Acquired hammer toe of left foot (8860078310148678) Other hammer toe(s) (acquired), left foot (M20.42) Active confirmed Problem Hammer toe (845580156) Hammer toe of right foot (M20.41) Active confirmed Problem Atherosclerosis of [place] arteries of the extremities (084965791563007) Atherosclerosis of [place] artery of both lower extremities, with unspecified presence of clinical manifestation (I70.203) Active confirmed Q7(A), Q8(2B), Q9(1B,2 C) Problem Plantarflexion deformity of foot (558697726) 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 confirmed Problem Essential hypertension (61423082) Essential hypertension (I10) Active confirmed Vital Signs Blood pressure diastolic 78 mm Hg 03/23/2024 Height 5 ft 7 in in 03/23/2024 Blood pressure systolic 104 mm Hg 03/23/2024 Weight 198 lbs 03/23/2024 BMI 31.01 kg/m2 03/23/2024 Procedures Procedure Date Ordered Date Performed Result Body Sit e 43693-BAHQBTT NAIL, 6 OR MORE 06/02/2023 N/A 05106-Bncmgadx Plate 06/02/2023 N/A 76629- Debride <25 sq cm 06/02/2023 N/A 50155-YOLSDVP NAIL, 6 OR MORE 09/04/2023 N/A 77712- Debride <25 sq cm 09/04/2023 N/A 83860-JDBVRCA NAIL, 6 OR MORE 12/11/2023 N/A 51649-Fehgeotc Plate 12/11/2023 N/A 34145- Debride <25 sq cm 12/11/2023 N/A 51490-LHLYZSQ NAIL, 6 OR MORE 03/23/2024 N/A 60733-SOXQ SKIN LESIONS, OVER 4 03/23/2024 N/A Encounters Encounter Location Date Provider Diagnosis [address] [address] 06/02/2023 Abigail Black Tinea unguium B35.1 ; 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 skin L97.521 ; Pain in right toe(s) M79.674 ; Pain in left toe(s) M79.675 and Ingrown nail L60.[address] [address] 09/04/2023 Abigail Black Tinea unguium B35.1 ; 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 3 ; Atherosclerosis of [place] artery of both lower extremities, with unspecified presence of clinical manifestation I70.203 ; Tinea unguium B35.1 ; Pain in right toe(s) M79.674 and Pain in left toe(s) M79.675 [facility] [address] [address] 03/04/2024 Abigail Corby Assessments Encounter Date Diagnosis [...] skin (ICD-10 - L85.3) 03/23/2024 Atherosclerosis of [place] artery of both lower extremities, with unspecified [...] Treatment Pending Test Test Name Order Date 21183-OZBIAQP NAIL, 6 OR MORE 10/18/2019 21535-UXQKNUD NAIL, 6 OR MORE 12/27/2019 52157-IYOWSFV NAIL, 6 OR MORE 03/13/2020 75024-WEJZIKW NAIL, 6 OR MORE 07/13/2020 39336-PNVVHLH NAIL, 6 OR MORE 10/16/2020 78723-DZORQIT NAIL, 6 OR MORE 02/05/2021 41942-KXFZFLF NAIL, 6 OR MORE 07/19/2021 30995-ZXRNVTY NAIL, 6 OR MORE 10/18/2021 89711-MQIIOAL NAIL, 6 OR MORE 01/21/2022 94336-MRVUWZH NAIL, 6 OR MORE 04/29/2022 20188-DGCOVPJ NAIL, 6 OR MORE 07/08/2022 49614-VCXVDCP NAIL, 6 OR MORE 09/16/2022 92742-MDTITAZ NAIL, 6 OR MORE 12/02/2022 85277-VNDSGWO NAIL, 6 OR MORE 02/24/2023 55914-LDBBPRG NAIL, 6 OR MORE 06/02/2023 28242-HFSQCDL NAIL, 6 OR MORE 09/04/2023 53409-ARUXFUQ NAIL, 6 OR MORE 12/11/2023 61862-ISFWSYY NAIL, 6 OR MORE 03/23/2024 54563-Oywrezut Plate 12/11/2023 32821-Fwqtpoej Plate 09/16/2022 35580-Jarbgppu Plate 06/02/2023 77787-Ogzeuyjc Plate 07/19/2021 54965-Xclvduin Plate 10/18/2021 60749-Ddfhjsve Plate 07/13/2020 12611-Ygweaepn Plate 02/05/2021 09508-Iqozhahp Plate 10/18/2019 24138- Debride <25 sq cm 10/18/2019 26910- Debride <25 sq cm 12/27/2019 58322- Debride <25 sq cm 07/13/2020 86561- Debride <25 sq cm 03/13/2020 67130- Debride <25 sq cm 07/19/2021 84239- Debride <25 sq cm 02/05/2021 36533- Debride <25 sq cm 10/18/2021 95742- Debride <25 sq cm 04/29/2022 66767- Debride <25 sq cm 01/21/2022 70571- Debride <25 sq cm 02/24/2023 89004- Debride <25 sq cm 12/02/2022 47555- Debride <25 sq cm 09/16/2022 77738- Debride <25 sq cm 07/08/2022 09770- Debride <25 sq cm 06/02/2023 28800- Debride <25 sq cm 12/11/2023 01138- Debride <25 sq cm 09/04/2023 79604 I&D ABSCESS- SIMPLE,SINGLE 021 48998-RRIA SKIN LESIONS, OVER 4 03/23/20 24 Next Appt Details Provider Name:Abigail Tavarez , 06/17/2024 09:00:00 AM, [address] [place] [address], [address], Insurance Providers Payer Name Payer Address Payer Phone Subscriber Number Group Number Insured Name Patient Relationship to Insured Coverage Start Date Coverage End Date [facility] Adv [address] [place] [id number] Gerardo hinson Claire Self - patient is the insured Medical (General) History Medical History History ICD Code Anxiety Arthritis Back,Hip,and Knee pain Cholesterol High blood pressure Joint implants/screws Transfusions Surgical History Surgery Date(Month/Year) wrist surgery hysterectomy
--- OUTSIDE RECORDS SUMMARY | 2024-05-14 11:14 | XMS_ITS ---
Author Organization [facility] Address [address] [place] [address] Care Team Providers Care Xray Tech Name Role Phone Nicola Lebron Primary Care Provider Abigail Juarez [phone] Figueroa Encounters Encounter Location Date Provider Diagnosis [facility] [address] [place] [address] 03/29/2024 Abigail Tavarez Plan Of Treatment Next Appt Details Provider Name:Abigail A Corby , 06/17/2024 09:00:00 AM, [address] [place], [address], Progress Notes * June AVERYireDOB: [birth year] (88 yo F)Acc No.[id number]:03/29/2024 Progress Note Patient:?Nisreen AVERY Provider:?Abigail Tavarez DPM :1935???Age:88 Y???Sex:Female D ate:03/29/2024 Address:[address] [place], [place] [id number] Pcp:Nicola Lebron Subjective: * Chief Complaints: * [...] Tavarez DPM Date:?2024 Generated for Eunice felipe/Tex/Eugene on:?05/14/2024 11:14 AM EST
--- OUTSIDE RECORDS SUMMARY | 2024-05-14 11:14 | XMS_ITS ---
Author Organization [facility] Address [address] [place] [address] Care Team Providers Care Bulb Brander Name Role Phone Bernardino Florijeanne Primary Care Provider Unavailabl e Black, Abigail Unavailable [phone] Allergies Allergen (clinical drug ingredient) Drug/Non Drug [...] W/U Status Risk Notes Problem Atherosclerosis of [place] arteries of the extremities (107291986746037) Atherosclerosis of [place] artery of both lower extremities, with unspecified presence of clinical manifestation (I70.203) Active confirmed Q7(A), Q8(2B), Q9(1B,2 C) Problem Essential hypertension (09292191) Essential hypertension (I10) Active confirmed Vital Signs Height 5 ft 7 in in 03/23/2024 Weight 198 lbs 03/23/2024 BMI 31.01 kg/m2 03/23/2024 Blood pressure systolic 104 mm Hg 03/23/20 24 Blood pressure diastolic 78 mm Hg 024 Procedures Procedure Date Ordered Date Performed Result Body Sit e 03626-NTJVLMD NAIL, 6 OR MORE 03/23/2024 N/A 45481-JYVJ SKIN LESIONS, OVER 4 03/23/2024 N/A Encounters Encounter Location Date Provider Diagnosis [facility] [place] [address] [place] [address] 03/23/2024 Abigail Black Xerosis of skin L85. 3 ; Atherosclerosis of [place] artery of both lower extremities, with unspecified presence of clinical manifestation I70.203 ; Tinea unguium B35.1 ; Pain in right toe(s) M79.674 and Pain in left toe(s) M79.675 Assessments Encounter Date Diagnosis (ICD Code) Assessment Notes Treatment Notes Treatment Clinical Notes Section Notes 03/23/2024 Xerosis of skin (ICD-10 - L85.3) 03/23/2024 Atherosclerosis of [place] artery of both lower extremities, with unspecified [...] days Pending Test Test Name Order Date 61626-GDYLKRN NAIL, 6 OR MORE 03/23/2024 35296-TOEO SKIN LESIONS, OVER 4 03/23/20 24 Next Appt Details Follow Up: 2 Months, Reason: Provider Name:Abigail Tavarez , 06/17/2024 09:00:00 AM, [address] [place] [address], [phone], Procedure Notes * Category Sub-Category Detail [...] use of a nail nipper and/or dremel-type automatic corn grinder operator, to a more viable healthy nail plate [...] to maintain effectiveness in symptomatic relief - 07780 Keratoma Treatment Parring or Cutting o f [...] instrumentation by the physician of record - 57882, Q8 Progress Notes * Bautista AVERYOB: [birth year] (88 yo F)Acc No.[id number]:03/23/2024 Progress Note Patient:?Nisreen AVERY Provider:?Abigail Tavarez DPM :1935???Age:88 Y???Sex:Female D ate:03/23/2024 Address:[address] [place], [place] [address] Pcp:Nicola Lebron Subjective: * Chief Complaints: * [...] ?Children: yes. ?Exercise: yes, light exercise at [employer], [employer] games, knitting. ?Marital status: . 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 * Medications:?TakingVitamin B 12 Losartan Potassium 25 [...] :Acute problem, Uncomplicated (3),Rx Management (4)???2.?Atherosclerosis of [place] artery of both lower extremities, with unspecified [...] 30 days, 140, Refills 2.?? 3.?Tinea unguium?Procedure: 66587-PHONAAN NAIL, 6 OR MORE * Procedures:?Debride Nail [...] use of a nail nipper and/or dremel-type automatic corn grinder operator, to a more viable healthy nail plate [...] to maintain effectiveness in symptomatic relief - 42032.?Keratoma Treatment:?Parring or Cutting of Benign Hyperkeratotic Lesion(s)?(-57) [...] instrumentation by the physician of record - 22745, Q8.? * Procedure Codes:?05304 DEBRI DE NAIL, 6 OR MORE, Modifiers: XS 77199 TRIM SKIN LESIONS, OVER 4, Modifiers: Q8 [...] Tavarez DPM Date:?2023 Generated for Eunice felipe/Tex/Eugene on:?05/14/2024 11:14 AM EST History and Physical Notes * [...]
--- OUTSIDE RECORDS SUMMARY | 2024-05-14 11:14 | XMS_ITS ---
Author Organization [facility] Address [address] [place] [address] Care Team Providers Care Saw Runner Name Role Phone Nicola Lebron Primary Care Provider Abigail Juarez [phone] REASON FOR VISIT Nails Encounters Encounter Location Date [facility] [address] 03/04/2024 Abigail Tavarez Plan Of Treatment Next Appt Details Provider Name:Abigail Tavarez , 06/17/2024 09:00:00 AM, [address] [place], [address], Progress Notes * Bautista AVERYOB: [birth year] (88 yo F)Acc No.[id number]:03/04/2024 Patient:?Nisreen AVERY :1935???Age:88 Y???Sex:Female Address:[address] [place] [address], [address] * true * Date:? Generated for Printi matteo/Tex/eTransmitting on:?05/14/2024 11:14 AM EST
--- OUTSIDE RECORDS SUMMARY | 2024-05-14 11:14 | XMS_ITS | Clinical Summary ---
Author Organization [employer] Address [address] [facility] [address] [place] [address] Care Team Providers Care Logistics Analyst Name Role Phone Unavailable Primary Care Provider [...] patient's age to complete this topic Insurance [facility]
[2024-05-14 11:38] LABS: Basophils Percent Auto 0.4 % (0-2); Eosinophils Absolute Auto 0.1 X10*3/uL (0.0-0.4); Eosinophils Percent Auto 1.2 % (0-4); Hematocrit 42.2 % (37.0-47.0); Hemoglobin 13.9 g/dl (12.0-16.0); Imm Gran Abs Auto 0.04 X10*3/uL (0.00-0.03); Imm Gran Pct Auto 0.5 % (0.0-0.4); Lymphocytes Absolute Auto 1.9 X10*3/uL (1.2-4.9); Lymphocytes Percent Auto 24.9 % (20-40); Mean Corpuscular HGB Conc 32.9 g/dl (31.0-35.0); Mean Corpuscular Hemoglobin 30.1 pg (27.0-33.0); Mean Corpuscular Volume 91.3 fL (80.0-98.0); Mean Platelet Volume 9.5 fL (9.4-12.3); Monocytes Absolute Auto 0.7 X10*3/uL (0.1-1.2); Monocytes Percent Auto 8.7 % (2-11); Neutrophils Absolute Auto 4.9 x10*3/uL (2.0-8.3); Neutrophils Percent Auto 64.3 % (45-73); Platelet Count 284 X10*3/uL (160-400); Red Blood Count 4.62 X10*6/uL (4.20-5.50); Red Cell Distribution Width 13.2 % (11.0-16.0); White Blood Count 7.6 X10*3/uL (4.8-10.8)
[2024-05-14 11:42] LABS: Estimated Average Glucose 120 mg/dL; Hemoglobin A1c % 5.8 % (<6.0); Total Hemoglobin (HGBA1C) 3655.7377 umol/L
[2024-05-14 12:30] LABS: Alanine Aminotransferase 18 U/L (0-31); Albumin Level 3.7 g/dL (3.5-5.0); Alkaline Phosphatase 76 U/L (39-117); Anion Gap 11 (12-20); Aspartate Amino Transferase 27 U/L (5-31); Bilirubin Total 0.8 mg/dL (0.0-1.0); Blood Urea Nitrogen 17 mg/dL (9-16); Calcium 9.8 mg/dL (8.4-10.2); Carbon Dioxide 26 mmol/L (22-29); Chloride 108 mmol/L (96-108); Cholesterol 152 mg/dL (<200); Estimated Glomerular Filt Rate > 60; Glucose Random 102 mg/dL (60-115); HDL Cholesterol 58 mg/dL (>40); LDL Cholesterol Calculated 74 mg/dL (<100); Potassium 4.2 mmol/L (3.3-5.1); Sodium 141 mmol/L (135-145); Total Protein 6.9 g/dL (6.5-8.0); Triglycerides 101 mg/dL (<150)
[2024-05-14 12:36] LABS: Thyroid Stimulating Hormone 0.94 uIU/mL (0.32-4.0)
[2024-05-14 12:48] LABS: Vitamin B12 416 pg/mL (200-900)
== END 2024-05-14 10:19 | disposition home or self-care (01) ==
LOC: HO.LAB 10:18
PROVIDERS: PCP Internal Medicine; Visit Provider Internal Medicine
DX: R73.02 Impaired glucose tolerance (oral) (principal); E78.00 Pure hypercholesterolemia, unspecified
CPT/HCPCS: 36415; 80053; 80061; 82306; 82607; 82746; 83036; 84443; 85025

== ENCOUNTER 2024-05-17 13:47 | Outpatient (AMB) | payer OTHER, SELFPAY ==
[2024-05-17 14:18] VITALS: BP 118/62; PULSE 72; O2SAT 97; BMI 31.6
--- NOTE | 2024-05-17 14:18 | MHC.PC.OV ---
Vital Signs 05/17/24 14:18 Height 5 ft 7 in Weight 202 lb BMI 31.6 BP 118/62 Blood Pressure Location Rt brachial Position Sitting Pulse 72 Pulse Source Pulse Oximeter Pulse Oximetry (%) 97 Oxygen Delivery Method Room Air Intake Visit Reasons: recurrent UTI Registration Representative Required: No Accompanied by: Daughter Allergies lisinopril Allergy (Unknown, Verified 05/17/24 14:23) cough Amlodipine Adverse Reaction (Intermediate, Uncoded 05/04/24 13:43) Leg swelling Medication List - Last Reconciled 05/17/24 by Nicola Lebron MD acetaminophen (Tylenol Extra Strength) 1,000 mg PO Q6H PRN albuterol sulfate 90 mcg/actuation 1 inh inhalation QID PRN aspirin 81 mg PO DAILY [BATH AND SHOWER STEP WITH HANDLE As directed] benzonatate 200 mg PO BID-TID PRN cholecalciferol (vitamin D3) (Vitamin D3) 50 mcg PO DAILY [Contour plus bladder pads As directed] cyanocobalamin (vitamin B-12) (Vitamin B-12) 1,000 mcg PO MO [EASY RISE WALKER As directed] estradiol 0.01%(0.1mg/gram) 1 g vaginal TUTH [flushable toilet wipes As directed] fluticasone propionate 50 mcg/actuation 1 spray intranasal DAILY [gloves As directed] [gloves As directed] guaifenesin ER (Mucinex) 600 mg PO BID ketoconazole 2% apply to under the breast and under belly fold topically daily; losartan 25 mg PO DAILY mirtazapine 7.5 mg PO BEDTIME PRN nystatin 1 appl topical DAILY PRN omeprazole 20 mg PO DAILY@0630 [Pad liners for bed and chair As directed] [PAIN RELIEVING PATCHES WITH HEAT As directed] pravastatin 20 mg PO DAILY [reclining lift chair. As directed] solifenacin (Vesicare) 5 mg PO DAILY 30 days sulfamethoxazole-trimethoprim 800-160 mg (Bactrim DS) 1 tab PO BID [underwear pull ups 3 per day As directed] Tobacco use date assessed: 05/04/24 Fall risk assessment: No Falls in past year Last assessed Fall Risk: 05/17/24 Dental Screening Dental Screen Date: 05/04/24 HPI recurrent UTI HPI Details Patient is wanting a chair lift - recently fell sustainingnL thigh pain - was on the floor and will need a higher chair level to be able to move up. needs bladder pads increase to 7 per month and chair pads increase 6 per month. and for wipes 8 packs per month for her incontinence. for the URI is better [facility] Medical History Altered mental status Acute encephalopathy Bilateral arm pain Osteoarthritis of knees, bilateral TIA (transient ischemic attack) Seizure disorder Knee osteoarthritis Urinary incontinence GERD (gastroesophageal reflux disease) COPD (chronic obstructive pulmonary disease) Obesity (BMI 30-39.9) Hypertension UTI (urinary tract infection) Hypertriglyceridemia Impaired glucose tolerance Vitamin D deficiency Surgical History H/O oophorectomy History of abdominal hysterectomy History of bilateral cataract extraction H/O left wrist surgery Family History Father No problems noted. Mother Past heart attack Sister Diabetes Brother Prostate cancer Social History Household Members: Family Housing: House Alcohol intake: never Patient Tobacco Use Status: Never used Tobacco Tobacco use type: Cigarette e-Cigarette/Vaping Use: Never Used Second Hand Smoke Exposure: No service: No Current occupational status: retired Cognitive needs: Yes (cane, walker) Hearing needs: No Vision needs: Yes (glasses) Questionnaire Thrive Questionnaire Date Thrive assessed: 05/04/24 RUBINA-7 AMB Questionnaire RUBINA-7 Date RUBINA - 7 assessed: 05/04/24 Source: Developed by Drs. Gabriel Jiménez, Krupa Paez, Jesus Quintana and colleagues, with an educational akila from [employer]. Physical exam (Primary Care) Vital Signs: Last Vital Signs Pulse 72 05/17/24 14:18 BP 118/62 05/17/24 14:18 Pulse Ox 97 05/17/24 14:18 Oxygen Delivery Method Room Air 05/17/24 14:18 BMI result Body Mass Index 31.6 Tobacco/Smoking Status: Tobacco use Status Tobacco use date assessed 05/04/24 05/17/24 14:22 Patient Tobacco Use Status Never used Tobacco 05/17/24 14:22 Tobacco use type Cigarette 05/17/24 14:22 e-Cigarette/Vaping Use Never Used 05/17/24 14:22 Thrive Assessment: Date of Thrive Assessment Date Thrive assessed 05/04/24 05/17/24 14:22 Const General: alert; No acute distress Eyes Conjunctivae: conjunctivae normal Resp Auscultation: clear to auscultation bilaterally Cardio Rate: regular rate Rhythm: regular rhythm GI Inspection: Yes normal to inspection Extrem General: Yes normal to inspection and No edema Coding Level of Care Code Est Pt Level 4 (69373) Diagnoses Right renal stone N20.0 Recurrent UTI N39.0 Pulmonary emphysema, unspecified emphysema type J43.9 COPD type: emphysema Emphysema type: unspecified Obesity (BMI 30-39.9) E66.9 Essential hypertension I10 Hypertension type: essential hypertension Impaired glucose tolerance R73.02 Assessment & Plan Assessment & Plan (1) Right renal stone: Comment: 04/12/2024 Code(s): N20.0 - Calculus of kidney Category: Medical Plan: Is going to be prone to infection with a kidney stone advised to increase oral fluid (2) Recurrent UTI: Code(s): N39.0 - Urinary tract infection, site not specified Category: Medical Plan: Patient has been treated for the infection and is given the option of low-dose antibiotic for prevention. (3) COPD (chronic obstructive pulmonary disease): Code(s): J44.9 - Chronic obstructive pulmonary disease, unspecified Category: Medical Qualifiers: COPD type: emphysema Emphysema type: unspecified Qualified Code(s): J43.9 - Emphysema, unspecified Plan: Continue with albuterol inhaler as needed (4) Obesity (BMI 30-39.9): Code(s): E66.9 - Obesity, unspecified Category: Medical Plan: Diet and exercise (5) Hypertension: Code(s): I10 - Essential (primary) hypertension Category: Medical Qualifiers: Hypertension type: essential hypertension Qualified Code(s): I10 - Essential (primary) hypertension Plan: Continue with blood pressure medication. Decrease salt intake and exercise (6) Impaired glucose tolerance: Code(s): R73.02 - Impaired glucose tolerance (oral) Category: Medical Plan: Decrease the amount of carbohydrate intake, pasta, bread, rice and potatoes are all sugar and that is aside from all the sweet stuff, remember that fruits are good but they are Sweet also. Plan History of Present Illness The patient is an 88-year-old female presenting for a follow-up regarding a cough and her chronic health conditions. Last seen on May 04 for a cough, the patient has a background of several chronic illnesses, including essential hypertension, hypercholesterolemia, and chronic obstructive pulmonary disease. The patient also has a history of gastroesophageal reflux disease, seizure disorder, generalized anxiety disorder, and recurrent urinary tract infections. Obesity is a notable factor in her health. During the previous visit, the patient had a hemoglobin A1c of 5.8. It was acknowledged that she is prone to infections, compounded by a history of kidney stones. The urinary tract infections have been recurrent, requiring management with low-dose antibiotics. She has been advised to increase her oral fluid intake. Management for these chronic issues includes using an albuterol inhaler as needed. Health Maintenance - Continuation of albuterol inhaler for COPD management - Patient advised to increase oral fluid intake to prevent kidney stone complications - Monitoring of hemoglobin A1c, with last recorded value at 5.8% Social History Review of Systems Physical Exam Results - Labs: Hemoglobin A1c recorded at 5.8% Plan - Essential Hypertension: Continue with current management and monitor blood pressure. - Chronic Obstructive Pulmonary Disease: Continue albuterol inhaler as needed for symptomatic relief. - Recurrent Urinary Tract Infections: Advise increased fluid intake and use of low-dose antibiotics for prophylaxis. - Seizure Disorder, GERD, Generalized Anxiety Disorder, Obesity, Hypercholesterolemia: Continue current management and monitor. - Kidney Stones: Advise increased oral hydration to prevent further stone formation. Patient was informed and verbally consented to the use of an ambient scribe for clinic note documentation during this visit. Discussion Notes I discussed with the patient the importance of continuing current medication regimens for the management of essential hypertension, hypercholesterolemia, COPD, and GERD. We reviewed her use of albuterol for inhalation and emphasized the need for adherence to treatment to manage her chronic conditions effectively. I reiterated the benefits of increasing oral hydration to mitigate the risk of further kidney stone formation and urinary tract infections. We also discussed the continuation of her low-dose antibiotic regimen as a preventative measure. The patient was receptive to the management plan and understands the importance of monitoring her chronic illness indicators, including hemoglobin A1c, which was normal at 5.8%. Patient Instructions - Continue using your albuterol inhaler as needed. - Increase oral fluid intake to prevent kidney stones and urinary tract infections. - Stay on your prescribed low-dose antibiotic regimen for UTI prevention. - Follow up on your usual schedule for monitoring chronic conditions. Orders: Orders UA CC w/rflx Micro + Cult Today R30.0 - Dysuria
--- OUTSIDE RECORDS SUMMARY | 2024-05-17 15:48 | XMS_ITS ---
Author Organization [facility] Address [address] [place] [address] Care Team Providers Care Manufacturing Quality Engineer Name Role Phone Bernardino Florijeanne Primary Care Provider Unavailabl e Black, Abigail Unavailable [phone] Allergies Allergen (clinical drug ingredient) Drug/Non Drug [...] W/U Status Risk Notes Problem Atherosclerosis of hamilton arteries of the extremities (624076360408056) Atherosclerosis of hamilton artery of both lower extremities, with unspecified presence of clinical manifestation (I70.203) Active confirmed Q7(A), Q8(2B), Q9(1B,2 C) Problem Essential hypertension (38605995) Essential hypertension (I10) Active confirmed Vital Signs Height 5 ft 7 in in 03/23/2024 Weight 198 lbs 03/23/2024 BMI 31.01 kg/m2 03/23/2024 Blood pressure systolic 104 mm Hg 03/23/20 24 Blood pressure diastolic 78 mm Hg 024 Procedures Procedure Date Ordered Date Performed Result Body Sit e 68833-ZOTNKFD NAIL, 6 OR MORE 03/23/2024 N/A 72252-LTPG SKIN LESIONS, OVER 4 03/23/2024 N/A Encounters Encounter Location Date Provider Diagnosis [facility] [place] [address] [place] [address] 03/23/2024 Abigail Black Xerosis of skin L85. 3 ; Atherosclerosis of hamilton artery of both lower extremities, with unspecified presence of clinical manifestation I70.203 ; Tinea unguium B35.1 ; Pain in right toe(s) M79.674 and Pain in left toe(s) M79.675 Assessments Encounter Date Diagnosis (ICD Code) Assessment Notes Treatment Notes Treatment Clinical Notes Section Notes 03/23/2024 Xerosis of skin (ICD-10 - L85.3) 03/23/2024 Atherosclerosis of hamilton artery of both lower extremities, with unspecified [...] days Pending Test Test Name Order Date 48528-FJTPGLR NAIL, 6 OR MORE 03/23/2024 55055-BPTS SKIN LESIONS, OVER 4 03/23/20 24 Next Appt Details Follow Up: 2 Months, Reason: Provider Name:Abigail Tavarez , 06/17/2024 09:00:00 AM, [address] [place] [address], [phone], Procedure Notes * Category Sub-Category Detail [...] use of a nail nipper and/or dremel-type tankage grinder, to a more viable healthy nail [...] to maintain effectiveness in symptomatic relief - 80392 Keratoma Treatment Parring or Cutting o f [...] instrumentation by the physician of record - 64868, Q8 Progress Notes * Bautista AVERYOB: [birth year] (88 yo F)Acc No.[id number]:03/23/2024 Progress Note Patient:?Nisreen AVERY Provider:?Abigail Tavarez DPM :1935???Age:88 Y???Sex:Female D ate:03/23/2024 Address:[address] [place], [place] [id number] Pcp:Nicola Lebron Subjective: * Chief Complaints: * [...] ?Children: yes. ?Exercise: yes, light exercise at [employer], [employer] games, knitting. ?Marital status: . 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 * Medications:?TakingVitamin B 12 Losartan Potassium 25 [...] :Acute problem, Uncomplicated (3),Rx Management (4)???2.?Atherosclerosis of hamilton artery of both lower extremities, with unspecified [...] 30 days, 140, Refills 2.?? 3.?Tinea unguium?Procedure: 84705-GPMEHBI NAIL, 6 OR MORE * Procedures:?Debride Nail [...] use of a nail nipper and/or dremel-type tankage grinder, to a more viable healthy nail [...] to maintain effectiveness in symptomatic relief - 56981.?Keratoma Treatment:?Parring or Cutting of Benign Hyperkeratotic Lesion(s)?(-57) [...] instrumentation by the physician of record - 06116, Q8.? * Procedure Codes:?76904 DEBRI DE NAIL, 6 OR MORE, Modifiers: XS 63874 TRIM SKIN LESIONS, OVER 4, Modifiers: Q8 [...] Tavarez DPM Date:?2023 Generated for Eunice felipe/Tex/Eugene on:?05/17/2024 03:47 PM EST History and Physical Notes * [...]
--- OUTSIDE RECORDS SUMMARY | 2024-05-17 15:48 | XMS_ITS | Patient Health Record ---
Author Organization [facility] Address [address] [place] [address] Care Team Providers Care Mortgage Loan Assistant Name Role Phone Nicola Lebron Primary Care Provider Vern TavarezAbigail Unavailable [phone] Allergies Allergen (clinical drug ingredient) Drug/Non Drug [...] Status Risk Notes Problem Acquired hallux valgus (88646556) Hallux valgus (acquired), left foot (M20.12) Active confirmed Problem Acquired hallux valgus (99013020) Hallux valgus (acquired), right foot (M20.11) Active confirmed Problem Ulcer of toe (576851064) 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 skin (L97.521) Active confirmed Worse Problem Ulcer of toe (702152463) Non-pressure chronic ulcer of other part of right foot limited to breakdown of skin (L97.511) Active confirmed Problem Acquired hammer toe of right foot (7699898774719605) Other hammer toe(s) (acquired), right foot (M20.41) Active confirmed Problem Acquired hammer toe of left foot (9090412417761302) Other hammer toe(s) (acquired), left foot (M20.42) Active confirmed Problem Hammer toe (470138512) Hammer toe of right foot (M20.41) Active confirmed Problem Atherosclerosis of [place] tribe arteries of the extremities (409062514756735) Atherosclerosis of [place] tribe artery of both lower extremities, with unspecified presence of clinical manifestation (I70.203) Active confirmed Q7(A), Q8(2B), Q9(1B,2 C) Problem Plantarflexion deformity of foot (893524435) 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 confirmed Problem Essential hypertension (06470767) Essential hypertension (I10) Active confirmed Vital Signs Blood pressure diastolic 78 mm Hg 03/23/2024 Height 5 ft 7 in in 03/23/2024 Blood pressure systolic 104 mm Hg 03/23/2024 Weight 198 lbs 03/23/2024 BMI 31.01 kg/m2 03/23/2024 Procedures Procedure Date Ordered Date Performed Result Body Sit e 84797-RBBMNHX NAIL, 6 OR MORE 06/02/2023 N/A 76775-Dvfxchfm Plate 06/02/2023 N/A 23958- Debride <25 sq cm 06/02/2023 N/A 72479-YGJFILW NAIL, 6 OR MORE 09/04/2023 N/A 80631- Debride <25 sq cm 09/04/2023 N/A 29087-ENGSLJR NAIL, 6 OR MORE 12/11/2023 N/A 09596-Teutsnff Plate 12/11/2023 N/A 82552- Debride <25 sq cm 12/11/2023 N/A 68415-GOGPAMT NAIL, 6 OR MORE 03/23/2024 N/A 18697-WNTL SKIN LESIONS, OVER 4 03/23/2024 N/A Encounters Encounter Location Date Provider Diagnosis [address] [address] 06/02/2023 Abigail Black Tinea unguium B35.1 ; 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 skin L97.521 ; Pain in right toe(s) M79.674 ; Pain in left toe(s) M79.675 and Ingrown nail L60.[address] [address] 09/04/2023 Abiagil Black Tinea unguium B35.1 ; 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 skin L97.521 ; Pain in right toe(s) M79.674 ; Pain in left toe(s) M79.675 and Edema, lower extremity R60.[address] [address] 12/11/2023 Abigail Black Tinea unguium B35.1 ; 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 skin L97.521 ; Pain in right toe(s) M79.674 ; Pain in left toe(s) M79.675 and Ingrown nail L60.0 [facility] [place] [address] [place] [address] 03/23/2024 Abigail Tavarez Xerosis of skin L85. 3 ; Atherosclerosis of [place]sem[place] indian tribe artery of both lower extremities, with unspecified presence of clinical manifestation I70.203 ; Tinea unguium B35.1 ; Pain in right toe(s) M79.674 and Pain in left toe(s) M79.675 [facility] [address] [address] 03/04/2024 Abigail Corby Assessments Encounter Date Diagnosis [...] skin (ICD-10 - L85.3) 03/23/2024 Atherosclerosis of [place]sem[place] ind[place] tribe artery of both lower extremities, with unspecified [...] Treatment Pending Test Test Name Order Date 69234-DATEUWT NAIL, 6 OR MORE 10/18/2019 40165-BWQMDOS NAIL, 6 OR MORE 12/27/2019 45272-DEAJTHM NAIL, 6 OR MORE 03/13/2020 96889-XCMLFEP NAIL, 6 OR MORE 07/13/2020 35873-FHDPBXF NAIL, 6 OR MORE 10/16/2020 89004-CSNGZII NAIL, 6 OR MORE 02/05/2021 15284-LKFQHEJ NAIL, 6 OR MORE 07/19/2021 95786-VODBIVC NAIL, 6 OR MORE 10/18/2021 80363-XLBTGIK NAIL, 6 OR MORE 01/21/2022 14849-RRKFANP NAIL, 6 OR MORE 04/29/2022 09110-WCQKTKV NAIL, 6 OR MORE 07/08/2022 27977-RGGKKHI NAIL, 6 OR MORE 09/16/2022 69493-ITHZKWZ NAIL, 6 OR MORE 12/02/2022 38306-OFGFUZJ NAIL, 6 OR MORE 02/24/2023 77694-XUPDGCI NAIL, 6 OR MORE 06/02/2023 42143-YCNLRBK NAIL, 6 OR MORE 09/04/2023 32801-WKAMZMU NAIL, 6 OR MORE 12/11/2023 31094-BCHQUYQ NAIL, 6 OR MORE 03/23/2024 39664-Ugqelhvi Plate 12/11/2023 15776-Pqzlujxw Plate 09/16/2022 41563-Vvtdtykh Plate 06/02/2023 80653-Varxixnd Plate 07/19/2021 90000-Rrgtypjg Plate 10/18/2021 45537-Mjdcaxkr Plate 07/13/2020 94882-Impuqkqv Plate 02/05/2021 09601-Gfkoyttj Plate 10/18/2019 62013- Debride <25 sq cm 10/18/2019 43720- Debride <25 sq cm 12/27/2019 46092- Debride <25 sq cm 07/13/2020 89988- Debride <25 sq cm 03/13/2020 38450- Debride <25 sq cm 07/19/2021 89758- Debride <25 sq cm 02/05/2021 75007- Debride <25 sq cm 10/18/2021 43904- Debride <25 sq cm 04/29/2022 93421- Debride <25 sq cm 01/21/2022 07311- Debride <25 sq cm 02/24/2023 30086- Debride <25 sq cm 12/02/2022 08928- Debride <25 sq cm 09/16/2022 45547- Debride <25 sq cm 07/08/2022 41677- Debride <25 sq cm 06/02/2023 71407- Debride <25 sq cm 12/11/2023 98009- Debride <25 sq cm 09/04/2023 77440 I&D ABSCESS- SIMPLE,SINGLE 021 84564-EFJD SKIN LESIONS, OVER 4 03/23/20 24 Next Appt Details Provider Name:Abigail Tavarez , 06/17/2024 09:00:00 AM, [address] [place] [address], [phone], Insurance Providers Payer Name Payer Address Payer Phone Subscriber Number Group Number Insured Name Patient Relationship to Insured Coverage Start Date Coverage End Date [facility] Adv [address] [place] [id number] Gerardo hinson Claire Self - patient is the insured Medical (General) History Medical History History ICD Code Anxiety Arthritis Back,Hip,and Knee pain Cholesterol High blood pressure Joint implants/screws Transfusions Surgical History Surgery Date(Month/Year) wrist surgery hysterectomy
--- OUTSIDE RECORDS SUMMARY | 2024-05-17 15:48 | XMS_ITS | Clinical Summary ---
Author Organization [employer] Address [address] [facility] [address] [place] [address] Care Team Providers Care Family Service Counselor Name Role Phone Unavailable Primary Care Provider [...] patient's age to complete this topic Insurance [facility]
--- OUTSIDE RECORDS SUMMARY | 2024-05-17 15:48 | XMS_ITS ---
Author Organization [facility] Address [address] [place] [address] Care Team Providers Care Webbing Tacker Name Role Phone Nicola Lebron Primary Care Provider Abigail Juarez [phone] REASON FOR VISIT Nails Encounters Encounter Location Date [facility] [address] 03/04/2024 Abigail Tavarez Plan Of Treatment Next Appt Details Provider Name:Abigail Tavarez , 06/17/2024 09:00:00 AM, [address] [place], [address], Progress Notes * Bautista AVERYOB: [birth year] (88 yo F)Acc No.[id number]:03/04/2024 Patient:?Nisreen AVERY :1935???Age:88 Y???Sex:Female Address:[address] [place] [address], [address] * true * Date:? Generated for Printi matteo/Tex/eTransmitting on:?05/17/2024 03:48 PM EST
--- OUTSIDE RECORDS SUMMARY | 2024-05-17 15:48 | XMS_ITS ---
Author Organization [facility] Address [address] [place] [address] Care Team Providers Care Sales Engineering Manager Name Role Phone Nicola Lebron Primary Care Provider Abigail Juarez [phone] Figueroa Encounters Encounter Location Date Provider Diagnosis [facility] [address] [place] [address] 03/29/2024 Abigail Tavarez Plan Of Treatment Next Appt Details Provider Name:Abigail A Corby , 06/17/2024 09:00:00 AM, [address] [place], [address], Progress Notes * June AVERYireDOB: [birth year] (88 yo F)Acc No.[id number]:03/29/2024 Progress Note Patient:?Nisreen AVERY Provider:?Abigail Tavarez DPM :1935???Age:88 Y???Sex:Female D ate:03/29/2024 Address:[address] [place], [place] [id number] Pcp:Nicola Lebron Subjective: * Chief Complaints: * [...] Tavarez DPM Date:?2024 Generated for Eunice felipe/Tex/Eugene on:?05/17/2024 03:48 PM EST
== END 2024-05-17 15:18 | disposition home or self-care (01) ==
PROVIDERS: PCP Internal Medicine; Visit Provider Internal Medicine
DX: I10 Essential (primary) hypertension (principal); J43.9 Emphysema, unspecified; Z68.31 Body mass index [BMI] 31.0-31.9, adult; N20.0 Calculus of kidney; N39.0 Urinary tract infection, site not specified; E66.9 Obesity, unspecified; R73.02 Impaired glucose tolerance (oral)

== ENCOUNTER → 2024-05-17 13:47 | Outpatient (BNVA) | payer OTHER, SELFPAY | PROVIDERS: PCP Internal Medicine; Visit Provider Internal Medicine | DX: N20.0 Calculus of kidney (principal); N39.0 Urinary tract infection, site not specified; J43.9 Emphysema, unspecified; E66.9 Obesity, unspecified; R73.02 Impaired glucose tolerance (oral); I10 Essential (primary) hypertension | CPT/HCPCS: 99212 ==

== ENCOUNTER 2024-05-27 11:43 | Outpatient (REF) | payer OTHER, SELFPAY ==
--- OUTSIDE RECORDS SUMMARY | 2024-05-27 14:21 | XMS_ITS ---
Author Organization [facility] Address [address] [place] [address] Care Team Providers Care Substation Manager Name Role Phone Bernardino Florijeanne Primary Care Provider Unavailabl e Black, Abigail Unavailable [phone] Allergies Allergen (clinical drug ingredient) Drug/Non Drug [...] W/U Status Risk Notes Problem Atherosclerosis of [place] arteries of the extremities (403603905853366) Atherosclerosis of [place] artery of both lower extremities, with unspecified presence of clinical manifestation (I70.203) Active confirmed Q7(A), Q8(2B), Q9(1B,2 C) Problem Essential hypertension (10173523) Essential hypertension (I10) Active confirmed Vital Signs Height 5 ft 7 in in 03/23/2024 Weight 198 lbs 03/23/2024 BMI 31.01 kg/m2 03/23/2024 Blood pressure systolic 104 mm Hg 03/23/20 24 Blood pressure diastolic 78 mm Hg 024 Procedures Procedure Date Ordered Date Performed Result Body Sit e 51896-KITGKIA NAIL, 6 OR MORE 03/23/2024 N/A 84913-IDJW SKIN LESIONS, OVER 4 03/23/2024 N/A Encounters Encounter Location Date Provider Diagnosis [facility] [address] [place] [address] 03/23/2024 Abigail Black Xerosis of skin L85. 3 ; Atherosclerosis of [place] artery of both lower extremities, with unspecified presence of clinical manifestation I70.203 ; Tinea unguium B35.1 ; Pain in right toe(s) M79.674 and Pain in left toe(s) M79.675 Assessments Encounter Date Diagnosis (ICD Code) Assessment Notes Treatment Notes Treatment Clinical Notes Section Notes 03/23/2024 Xerosis of skin (ICD-10 - L85.3) 03/23/2024 Atherosclerosis of [place] artery of both lower extremities, with unspecified [...] days Pending Test Test Name Order Date 22148-LRRJLPZ NAIL, 6 OR MORE 03/23/2024 36427-KUVA SKIN LESIONS, OVER 4 03/23/20 24 Next Appt Details Follow Up: 2 Months, Reason: Provider Name:Abigail Tavarez , 06/17/2024 09:00:00 AM, [address] [place] [address], [phone], Procedure Notes * Category Sub-Category Detail [...] use of a nail nipper and/or dremel-type centerless grinder, to a more viable healthy nail [...] to maintain effectiveness in symptomatic relief - 35852 Keratoma Treatment Parring or Cutting o f [...] instrumentation by the physician of record - 96430, Q8 Progress Notes * Bautista AVERYOB: [birth year] (88 yo F)Acc No.[id number]:03/23/2024 Progress Note Patient:?Nisreen AVERY Provider:?Abigail Tavarez DPM :1935???Age:88 Y???Sex:Female D ate:03/23/2024 Address:[address] [place], [place] [id number] Pcp:Nicola Lebron Subjective: * Chief Complaints: * [...] ?Children: yes. ?Exercise: yes, light exercise at [employer], [employer] games, knitting. ?Marital status: . 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 * Medications:?TakingVitamin B 12 Losartan Potassium 25 [...] :Acute problem, Uncomplicated (3),Rx Management (4)???2.?Atherosclerosis of [place] artery of both lower extremities, with unspecified [...] 30 days, 140, Refills 2.?? 3.?Tinea unguium?Procedure: 58568-CBMWGER NAIL, 6 OR MORE * Procedures:?Debride Nail [...] use of a nail nipper and/or dremel-type centerless grinder, to a more viable healthy nail [...] to maintain effectiveness in symptomatic relief - 47271.?Keratoma Treatment:?Parring or Cutting of Benign Hyperkeratotic Lesion(s)?(-57) [...] instrumentation by the physician of record - 68952, Q8.? * Procedure Codes:?41460 DEBRI DE NAIL, 6 OR MORE, Modifiers: XS 03589 TRIM SKIN LESIONS, OVER 4, Modifiers: Q8 [...] Tavarez DPM Date:?2023 Generated for Eunice felipe/Tex/Eugene on:?05/27/2024 02:20 PM EST History and Physical Notes * [...]
--- OUTSIDE RECORDS SUMMARY | 2024-05-27 14:21 | XMS_ITS | Patient Health Record ---
Author Organization [facility] Address [address] [place] [address] Care Team Providers Care Shell Coremaker Name Role Phone Nicola Lebron Primary Care Provider Vern TavarezAbigail Unavailable [phone] Allergies Allergen (clinical drug ingredient) Drug/Non Drug [...] Status Risk Notes Problem Acquired hallux valgus (74074985) Hallux valgus (acquired), left foot (M20.12) Active confirmed Problem Acquired hallux valgus (11109632) Hallux valgus (acquired), right foot (M20.11) Active confirmed Problem Ulcer of toe (766567055) 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 skin (L97.521) Active confirmed Worse Problem Ulcer of toe (443629883) Non-pressure chronic ulcer of other part of right foot limited to breakdown of skin (L97.511) Active confirmed Problem Acquired hammer toe of right foot (0443244358865585) Other hammer toe(s) (acquired), right foot (M20.41) Active confirmed Problem Acquired hammer toe of left foot (2942613279343341) Other hammer toe(s) (acquired), left foot (M20.42) Active confirmed Problem Hammer toe (001196209) Hammer toe of right foot (M20.41) Active confirmed Problem Atherosclerosis of [place] arteries of the extremities (300309940153691) Atherosclerosis of [place] artery of both lower extremities, with unspecified presence of clinical manifestation (I70.203) Active confirmed Q7(A), Q8(2B), Q9(1B,2 C) Problem Plantarflexion deformity of foot (302417306) 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 confirmed Problem Essential hypertension (72890782) Essential hypertension (I10) Active confirmed Vital Signs Blood pressure diastolic 78 mm Hg 03/23/2024 Height 5 ft 7 in in 03/23/2024 Blood pressure systolic 104 mm Hg 03/23/2024 Weight 198 lbs 03/23/2024 BMI 31.01 kg/m2 03/23/2024 Procedures Procedure Date Ordered Date Performed Result Body Sit e 38587-OWGVMYA NAIL, 6 OR MORE 06/02/2023 N/A 98519-Qerdqwmd Plate 06/02/2023 N/A 63708- Debride <25 sq cm 06/02/2023 N/A 60618-IEYABJN NAIL, 6 OR MORE 09/04/2023 N/A 34545- Debride <25 sq cm 09/04/2023 N/A 19884-LWPCEXI NAIL, 6 OR MORE 12/11/2023 N/A 36326-Vhuyjxfu Plate 12/11/2023 N/A 00631- Debride <25 sq cm 12/11/2023 N/A 63115-GFEYISG NAIL, 6 OR MORE 03/23/2024 N/A 86449-CVNJ SKIN LESIONS, OVER 4 03/23/2024 N/A Encounters Encounter Location Date Provider Diagnosis [address] [address] 06/02/2023 Abigail Black Tinea unguium B35.1 ; 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 skin L97.521 ; Pain in right toe(s) M79.674 ; Pain in left toe(s) M79.675 and Ingrown nail L60.[address] [address] 09/04/2023 Abigail Black Tinea unguium B35.1 ; 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 skin L97.521 ; Pain in right toe(s) M79.674 ; Pain in left toe(s) M79.675 and Edema, lower extremity R60.[address] [address] 12/11/2023 Abigail Black Tinea unguium B35.1 ; 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 skin L97.521 ; Pain in right toe(s) M79.674 ; Pain in left toe(s) M79.675 and Ingrown nail L60.0 [facility] [address] [place] [address] 03/23/2024 Abigail Tavarez Xerosis of skin L85. 3 ; Atherosclerosis of [place] artery of both lower extremities, with unspecified presence of clinical manifestation I70.203 ; Tinea unguium B35.1 ; Pain in right toe(s) M79.674 and Pain in left toe(s) M79.675 [facility] [address] [address] 03/04/2024 Abigail Corby Assessments Encounter Date Diagnosis [...] skin (ICD-10 - L85.3) 03/23/2024 Atherosclerosis of [place] artery of both lower extremities, with unspecified [...] Treatment Pending Test Test Name Order Date 89048-KBKGYKH NAIL, 6 OR MORE 10/18/2019 70339-MOLJOVX NAIL, 6 OR MORE 12/27/2019 15125-PWVXWRX NAIL, 6 OR MORE 03/13/2020 49614-NVHQMQF NAIL, 6 OR MORE 07/13/2020 08617-FAKWOWO NAIL, 6 OR MORE 10/16/2020 54735-UAVDPTZ NAIL, 6 OR MORE 02/05/2021 14282-MRXWQQT NAIL, 6 OR MORE 07/19/2021 27741-GQWFATB NAIL, 6 OR MORE 10/18/2021 84455-YMSZFVF NAIL, 6 OR MORE 01/21/2022 06068-GIUULOQ NAIL, 6 OR MORE 04/29/2022 67079-KNFYVCA NAIL, 6 OR MORE 07/08/2022 32618-UMYVRQZ NAIL, 6 OR MORE 09/16/2022 61167-CLMRNSC NAIL, 6 OR MORE 12/02/2022 42051-HLSHQBN NAIL, 6 OR MORE 02/24/2023 68064-ZUQKCUT NAIL, 6 OR MORE 06/02/2023 96248-TUNKHGR NAIL, 6 OR MORE 09/04/2023 95157-EJSJZFI NAIL, 6 OR MORE 12/11/2023 18394-BDDCPPC NAIL, 6 OR MORE 03/23/2024 54333-Ihunngzc Plate 12/11/2023 46166-Wuwgqotm Plate 09/16/2022 25016-Tcdtqiux Plate 06/02/2023 28576-Bxchpgjw Plate 07/19/2021 22059-Zkmazluy Plate 10/18/2021 65161-Rwzaskdx Plate 07/13/2020 75470-Rihbjxcp Plate 02/05/2021 86687-Jssmybok Plate 10/18/2019 63802- Debride <25 sq cm 10/18/2019 32239- Debride <25 sq cm 12/27/2019 90350- Debride <25 sq cm 07/13/2020 38490- Debride <25 sq cm 03/13/2020 82169- Debride <25 sq cm 07/19/2021 61191- Debride <25 sq cm 02/05/2021 00078- Debride <25 sq cm 10/18/2021 48096- Debride <25 sq cm 04/29/2022 26509- Debride <25 sq cm 01/21/2022 34686- Debride <25 sq cm 02/24/2023 37568- Debride <25 sq cm 12/02/2022 14645- Debride <25 sq cm 09/16/2022 40084- Debride <25 sq cm 07/08/2022 88250- Debride <25 sq cm 06/02/2023 43396- Debride <25 sq cm 12/11/2023 50359- Debride <25 sq cm 09/04/2023 67467 I&D ABSCESS- SIMPLE,SINGLE 021 87509-XDZY SKIN LESIONS, OVER 4 03/23/20 24 Next Appt Details Provider Name:Abigail Tavarez , 06/17/2024 09:00:00 AM, [address] [place] [address], [phone], Insurance Providers Payer Name Payer Address Payer Phone Subscriber Number Group Number Insured Name Patient Relationship to Insured Coverage Start Date Coverage End Date [facility] Adv [address] [place] [id number] Gerardo hinson Claire Self - patient is the insured Medical (General) History Medical History History ICD Code Anxiety Arthritis Back,Hip,and Knee pain Cholesterol High blood pressure Joint implants/screws Transfusions Surgical History Surgery Date(Month/Year) wrist surgery hysterectomy
--- OUTSIDE RECORDS SUMMARY | 2024-05-27 14:21 | XMS_ITS ---
Author Organization [facility] Address [address] [place] [address] Care Team Providers Care Media Arts Professor Name Role Phone Nicola Lebron Primary Care Provider Abigail Juarez [phone] REASON FOR VISIT Nails Encounters Encounter [facility] Date [facility] [address] 03/04/2024 Abigail Tavarez Plan Of Treatment Next Appt Details Provider Name:Abigail Tavarez , 06/17/2024 09:00:00 AM, [address] [place], [address], Progress Notes * Bautista AVERYOB: [birth year] (88 yo F)Acc No.[id number]:03/04/2024 Patient:?Nisreen AVERY :1935???Age:88 Y???Sex:Female Address:[address] [place] [address], [address] * true * Date:? Generated for Printi matteo/Tex/eTransmitting on:?05/27/2024 02:20 PM EST
--- OUTSIDE RECORDS SUMMARY | 2024-05-27 14:21 | XMS_ITS ---
Author Organization [facility] Address [address] [place] [address] Care Team Providers Care Automobile Technician Name Role Phone Nicola Lebron Primary Care Provider Abigail Juarez [phone] Figueroa Encounters Encounter Location Date Provider Diagnosis [facility] [address] [place] [address] 03/29/2024 Abigail Tavarez Plan Of Treatment Next Appt Details Provider Name:Abigail A Corby , 06/17/2024 09:00:00 AM, [address] [place], [address], Progress Notes * June AVERYireDOB: [birth year] (88 yo F)Acc No.[id number]:03/29/2024 Progress Note Patient:?Nisreen AVERY Provider:?Abigail Tavarez DPM :1935???Age:88 Y???Sex:Female D ate:03/29/2024 Address:[address] [place], [place] [address] Pcp:Nicola Lebron Subjective: * Chief Complaints: * ???1. Dr Figueroa. * Medical History:? Objective: * Vitals:? Assessment: Plan: * Treatment: * Images: * The named appointment provid er may or may not be the originator of this progress note, and it is not deemed complete until electronically signed by the appointment provider. Sign off status: Pending * Provider:Elliot Tavarez DPM Date:?2024 Generated for Eunice felipe/Tex/Eugene on:?05/27/2024 02:21 PM EST
--- OUTSIDE RECORDS SUMMARY | 2024-05-27 14:21 | XMS_ITS | Clinical Summary ---
Author Organization [employer] Address [address] [facility] [address] [place] [address] Care Team Providers Care Plumbing Installer Name Role Phone Unavailable Primary Care Provider [...] patient's age to complete this topic Insurance [facility]
== END 2024-05-27 11:44 | disposition home or self-care (01) ==
LOC: HO.MAMMO 11:43
PROVIDERS: PCP Internal Medicine; Visit Provider Internal Medicine
DX: Z12.31 Encounter for screening mammogram for malignant neoplasm of breast (principal)
CPT/HCPCS: 77063; 77067

== ENCOUNTER → 2024-05-27 12:15 | Outpatient (BNV) | payer OTHER, SELFPAY | PROVIDERS: PCP Internal Medicine; Visit Provider Internal Medicine | DX: Z12.31 Encounter for screening mammogram for malignant neoplasm of breast (principal) | CPT/HCPCS: 77063; 77067 ==

== ENCOUNTER 2024-06-07 11:56 | Inpatient (IN) | payer OTHER, SELFPAY ==
--- NOTE | 2024-06-07 | EEG_ITS ---
This is a 16-channel EEG with an EKG lead. The patient is reported sleeping during the tracing. Background EEG rhythm is low to medium amplitude; mixed theta, beta with intermittent left temporal sharp waves at times. Phase reversal at T3. Photic stimulation does not produce any significant driving. Hyperventilation is not performed. Cardiac lead does not reveal any significant abnormality. IMPRESSION: Abnormal EEG suggestive of left temporal irritability. MD REKHA Melo/MARGIE / [phone]
--- NOTE | ~2024-06-07 | MR_ITS ---
CLINICAL HISTORY: encephalitis Incomplete exam. Pt aborted the exam prior to contrast injection. Pt was moving and became unsafe for continuing the exam. MR of the brain without contrast Comparison: CT/WA/SR - CT ANGIO HEAD NECK STROKE - 06/07/24 12:[address]/WA - CT ANGIO HEAD NECK STROKE - 06/07/24 12:[address]/WA/SR - CT HEAD FOR STROKE - 06/07/24 12:[address]/SR - CT ANGIO HEAD NECK STROKE - 12/22/23 11:12 EDT MR/REG/WA - MR HEAD/BRAIN WO/W CON - 01/11/20 08:46 EDT Findings: Postcontrast images were not obtained. Images to assess for susceptibility were also not obtained. No acute infarction, hemorrhage, mass-effect or herniation. No hydrocephalus. Increased signal intensity is seen in the deep and periventricular white matter on the T2/FLAIR sequences, which most likely represents the sequela of moderate to severe chronic small vessel ischemic disease and is similar to the prior studies. No extra-axial fluid collection or mass. Unremarkable sella. Intact flow voids. Normal orbits. Clear paranasal sinuses and mastoid air cells. Unremarkable osseous structures. Impression: No acute findings. Limited exam. This document has been electronically signed by: Angie Gomez MD on 06/08/2024 18:34:10
--- NOTE | ~2024-06-07 | CT_ITS ---
EXAMINATION: CTA NECK WITH CONTRAST (STROKE) CTA BRAIN WITH CONTRAST (STROKE) CLINICAL INFORMATION: Suspect acute stroke. Assess for major vessel occlusion. Please call report. COMPARISON: Correlated to CT brain dated June 07, 2024. CT angiogram head and neck dated December 22, 2023. TECHNIQUE: CTA of the head and neck was performed in the axial plane from the mediastinum to the skull vertex using 70 mL Omnipaque 350 intravenous contrast. Additional reformatted multiplanar images including maximum intensity projection MIP images are generated on the CT workstation. This CT examination was performed using dose optimization techniques as appropriate, variously including the following: *Automated exposure control *Adjustment of mA and/or kV according to patient size (this includes techniques or standardized protocols for targeted exams where dose is matched to indication/reason for exam; i.e. extremities or head) *Use of iterative reconstruction technique DLP: 642 mGy centimeter. FINDINGS: The degree of stenosis determined by criteria similar to NASCET. Limited by patient's motion artifact. Chest CTA: No focal stenosis. No IV contrast extravasation. No intimal flap. Calcified plaques in the aortic arch. Left vertebral artery origin a [directly from the aortic arch between the left subclavian and the left common carotid arteries.. Neck CTA: Right CCA: Normal patency. No focal stenosis. No intimal flap. Right ICA: Calcified plaques. Normal patency. No focal stenosis. No intimal flap. Tortuosity in the proximal segment. Retropharyngeal trajectory. Left CCA: Normal patency. No focal stenosis. No intimal flap. Left ICA: Calcified plaques. Less than 60% stenosis. No intimal flap. V1/V2 segments: Normal patency. No focal stenosis. No intimal flap. Codominant vertebral arteries. Brain CTA: Anterior cerebral circulation: ICAs: Calcified plaques in the cavernous supraclinoid segments. Normal patency. No focal stenosis. No intimal flap. No abrupt cut off. The ophthalmic arteries are patent. I do not see enhancement of the posterior communicating arteries. MCA's: Normal patency. No focal stenosis. No abrupt cut off. Bifurcation/trifurcation demonstrated no gross contour irregularity. Anterior communicating artery appears patent. ACAs: Normal patency. No focal stenosis. No abrupt cut off. Posterior cerebral circulation: V3/V4 segments: Normal patency. No focal stenosis. No intimal flap. There is a common trunk for the left anterior inferior and posterior inferior cerebellar arteries. Right posterior inferior cerebellar artery is patent. Right anterior inferior cerebellar artery is patent. Basilar artery: Normal patency. No focal stenosis. No intimal flap. Superior cerebellar arteries are patent. cigarette carton sealer: Normal patency. No focal stenosis. No abrupt cut off. Ancillary findings: Multiple low density nodular lesions throughout the thyroid gland more conspicuous on the left thyroid lobe. Pulmonary mosaic pattern. Calcifications in the palatine tonsils with mild prominence. Multilevel cervical spondylosis. CT/CT angio head neck STROKE IMPRESSION: No main cerebral artery occlusion or embolus. No high degree stenosis or dissection, vessels of the neck. Retropharyngeal trajectory, right ICA. Concerning multinodular goiter in the correct clinical settings. This critical test result is communicated to: Dr. Tricia Johns on June 07, 2024. 1:02 PM. Electronically signed by: Tony Flores MD 06/07/2024 01:35 PM EDT
--- NOTE | ~2024-06-07 | FL_ITS ---
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 TECHNIQUE: Following obtaining consent from 2 physicians for lumbar puncture, patient was placed prone on fluoroscopy table and and optimal site was selected along the low back area. 1% lidocaine was inserted overlying the L4-5 disc level. A 20-gauge long 3 inch needle was inserted from the skin to the posterior spinous process of L4 vertebra. The needle was short. Hence a 20-gauge 6 inch needle was advanced parallel to the shorter needle and placed intrathecally at the L4-5 disc level patient was placed in left lateral decubitus view to visualize position of the needle. The stylet was withdrawn and CSF collected in 4 test tubes. After CSF collection stylet was introduced and needle withdrawn. Complete hemostasis achieved at puncture site. Sterile Band-Aid applied at puncture site. Patient tolerated procedure extremely well. FINDINGS: Successful fluoroscopy-guided L4-5 lumbar puncture performed. Approximately 14 mL of clear CSF fluid was collected in 4 test tubes and sent to lab. FLUOROSCOPY TIME: 1 minute 27 seconds DOSE AREA PRODUCT: 2703 uGy-m2 (microgray-meter squared) FL/FL guided lumbar puncture LP IMPRESSION: Successful fluoroscopy-guided L4-5 lumbar puncture performed without immediate complications. Electronically signed by: Thomas Thacker MD 06/11/2024 04:29 PM EDT
--- NOTE | ~2024-06-07 | XR_ITS ---
EXAMINATION: XR CHEST 1 VIEW HISTORY: cough COMPARISON: Comparison is made with the prior examination dated 9 x 17. FINDINGS: A single AP portable view of the chest performed at 3:45 PM is submitted. There are low lung volumes. There are linear opacities in both lungs which likely represent subsegmental atelectasis. There is no pleural effusion, pneumothorax, or pulmonary vascular congestion. The heart is normal in size. There is degenerative disc disease of the spine. XR/XR chest 1V IMPRESSION: Low lung volumes. Subsegmental atelectasis in both lungs. Electronically signed by: Gabriel Yeboah MD 06/07/2024 03:55 PM EDT
--- NOTE | ~2024-06-07 | CT_ITS ---
EXAMINATION: CT HEAD WITHOUT IV CONTRAST STROKE HISTORY: Stroke Protocol. TECHNIQUE: Unenhanced helical CT of the head was performed per standard departmental protocol. Coronal and sagittal reformats of the head were also evaluated. One or more of the following techniques was used for dose reduction: Automated exposure control, adjustment of the mA and/or kV according to patient size, use of iterative reconstruction technique. DLP: 672 mGy-cm COMPARISON: Comparison is made with the prior examination dated 12/05/2023. FINDINGS: BRAIN: There is diffuse prominence of the ventricular system and cortical sulci, consistent with atrophy. Periventricular and subcortical white matter hypodensities are noted which are nonspecific, but often seen in the setting of small vessel ischemic disease. There is no mass effect or midline shift. No intra- or extra-axial fluid collections are identified. SINUSES: The visualized paranasal sinuses are clear. The mastoid air cells and middle ear cavities are well pneumatized. ORBITS: The visualized orbits are unremarkable. BONES/SOFT TISSUES: The extracranial soft tissues are unremarkable. The calvarium is intact. No suspicious lytic or sclerotic lesions. CT/CT head for STROKE IMPRESSION: No acute intracranial abnormality. Electronically signed by: Gabriel Yeboah MD 06/07/2024 12:34 PM EDT
[2024-06-07 12:05] VITALS: BP 108/78; PULSE 85; RESP 20; TEMP 37; O2SAT 95; BMI 31.6
--- NOTE | 2024-06-07 12:05 | ED.GENADULT ---
HPI - General Adult General Chief complaint: Stroke Stated complaint: incoherent, weak, uti Time Seen by Provider: 06/07/24 12:19 Related Data Home Medications ?Medication ?Instructions ?Recorded ?Confirmed acetaminophen 500 mg tablet 1,000 mg PO Q6H PRN Pain 02/02/20 05/17/24 (Tylenol Extra Strength) cholecalciferol (vitamin D3) 50 50 mcg PO DAILY 12/22/23 05/17/24 mcg (2,000 unit) tablet (Vitamin D3) cyanocobalamin (vitamin B-12) 1,000 mcg PO MO 12/22/23 05/17/24 1,000 mcg tablet (Vitamin B-12) mirtazapine 7.5 mg tablet 7.5 mg PO BEDTIME PRN Sleep 12/22/23 05/17/24 nystatin 100,000 unit/gram topical 1 appl topical DAILY PRN Fungal 12/22/23 05/17/24 powder Infection Previous Rx's ?Medication ?Instructions ?Recorded BATH AND SHOWER STEP WITH HANDLE #1 ea 04/10/23 EASY RISE WALKER #1 ea 04/10/23 PAIN RELIEVING PATCHES WITH HEAT #60 ea 04/29/23 Contour plus bladder pads #3 ea 08/06/23 Pad liners for bed and chair #6 ea 08/06/23 gloves #1 ea 08/06/23 gloves #1 ea 08/06/23 underwear pull ups 3 per day #6 ea 08/06/23 flushable toilet wipes #5 ea 09/17/23 reclining lift chair. #1 ea 02/03/24 ketoconazole 2 % topical cream See Rx Instructions topical DAILY 02/05/24 #60 grams aspirin 81 mg tablet,delayed 81 mg PO DAILY #90 tabs 03/12/24 release omeprazole 20 mg capsule,delayed 20 mg PO DAILY@0630 #90 caps 03/12/24 release pravastatin 20 mg tablet 20 mg PO DAILY #90 tabs 03/12/24 fluticasone propionate 50 1 spray intranasal DAILY #48 mL 04/01/24 mcg/actuation nasal spray,suspension losartan 25 mg tablet 25 mg PO DAILY #30 tabs 04/25/24 benzonatate 200 mg capsule 200 mg PO BID-TID PRN cough #20 04/28/24 caps guaifenesin 600 mg tablet, 600 mg PO BID #14 tabs 05/04/24 extended release 12 hr (Mucinex) solifenacin 5 mg tablet (Vesicare) 5 mg PO DAILY 30 days #30 tabs 05/04/24 sulfamethoxazole 800 1 tab PO BID #14 tabs 05/13/24 mg-trimethoprim 160 mg tablet (Bactrim DS) estradiol 0.01% (0.1 mg/gram) 1 g vaginal 2XW #42.5 grams 05/24/24 vaginal cream albuterol sulfate 90 mcg/actuation 1 inh inhalation QID PRN shortness 06/02/24 aerosol inhaler of breath or wheezing #8.5 grams Allergies Allergy/AdvReac Type Severity Reaction Status Date / Time lisinopril Allergy Unknown cough Verified 06/07/24 12:07 Amlodipine AdvReac Intermediate Leg Uncoded 06/07/24 12:07 swelling PMFSH Past Medical History Medical History Altered mental status Acute encephalopathy Bilateral arm pain Osteoarthritis of knees, bilateral TIA (transient ischemic attack) Seizure disorder Knee osteoarthritis Urinary incontinence GERD (gastroesophageal reflux disease) COPD (chronic obstructive pulmonary disease) Obesity (BMI 30-39.9) Hypertension UTI (urinary tract infection) Hypertriglyceridemia Impaired glucose tolerance Vitamin D deficiency Surgical History H/O oophorectomy History of abdominal hysterectomy History of bilateral cataract extraction H/O left wrist surgery Family History Family History Father No problems noted. Mother Past heart attack Sister Diabetes Brother Prostate cancer Social History Social History Household Members: Family Housing: House Alcohol intake: never Patient Tobacco Use Status: Never used Tobacco Tobacco use type: Cigarette e-Cigarette/Vaping Use: Never Used Second Hand Smoke Exposure: No Advance Directives: Yes Advance Directives Information Provided: Yes Advance Directives on File: Yes Advance Directives Date on File: 12/23/23 service: No Current occupational status: retired Cognitive needs: Yes (cane, walker) Hearing needs: No Vision needs: Yes (glasses) Physical Exam ED Vital Signs: Vital Signs - 24 hr 06/07/24 12:05 06/07/24 14:12 Temperature 98.6 F 98.4 F Pulse Rate 85 97 Respiratory Rate 20 15 Blood Pressure 108/78 162/65 H Pulse Oximetry 95 93 Oxygen Delivery Method Room Air Room Air BMI result Body Mass Index 31.6 Course Course Course Narrative: This is a rapid medical exam performed by Angelique Elkins NP: Additional HPI, ROS, PE not included below will be deferred to primary provider. Patient is an 88 year old female presenting with family who report patient has had expressive aphasia since 8am. Family suspecting UTI. Patient unable to follow commands in triage, activated as stroke alert. Plan; data processing clerk notified Medications Administered Discontinued Medications Generic Name Dose Route Start Last Admin Trade Name Freq PRN Reason Stop Dose Admin Ceftriaxone Sodium 1 gm 06/07/24 13:54 06/07/24 14:13 Ceftriaxone Sodium 1 Gm Vial IVPUSH 06/07/24 13:55 1 gm ONCE ONE Administration Medical Decision Making Lab Data 06/07/24 12:37 06/07/24 12:37 Labs: Lab Results 06/07/24 06/07/24 06/07/24 Range/Units 12:15 12:37 12:45 WBC 7.8 (4.8-10.8) X10*3/uL RBC 4.51 (4.20-5.50) X10*6/uL Hgb 13.6 (12.0-16.0) g/dl Hct 41.1 (37.0-47.0) % MCV 91.1 (80.0-98.0) fL MCH 30.2 (27.0-33.0) pg MCHC 33.1 (31.0-35.0) g/dl RDW 13.4 (11.0-16.0) % Plt Count 261 (160-400) X10*3/uL MPV 9.6 (9.4-12.3) fL Immature Gran % (Auto) 0.4 (0.0-0.4) % Neut % (Auto) 61.6 (45-73) % Lymph % (Auto) 28.2 (20-40) % [place] % (Auto) 8.3 (2-11) % Eos % (Auto) 0.9 (0-4) % Baso % (Auto) 0.6 (0-2) % Lymph # (Auto) 2.2 (1.2-4.9) X10*3/uL [place] # (Auto) 0.7 (0.1-1.2) X10*3/uL Eos # (Auto) 0.1 (0.0-0.4) X10*3/uL Baso # (Auto) 0.1 (0.0-0.2) X10*3/uL Abs Immat Gran (auto) 0.03 (0.00-0.03) X10*3/uL Absolute Neuts (auto) 4.8 (2.0-8.3) x10*3/uL Absolute Nucleated RBC 0.000 (0.0-0.012) X10*3/uL Nucleated RBC % (auto) 0.0 (0.0-0.2) /100WBC Hold Purple Top SEE NOTE PT 11.2 (10.9-12.4) SEC INR 1.0 (0.9-1.1) APTT 28.7 (26.0-36.8) SEC Sodium 143 (135-145) mmol/L Potassium 4.4 (3.3-5.1) mmol/L Chloride 112 H (96-108) mmol/L Carbon Dioxide 25 (22-29) mmol/L Anion Gap 10 L (12-20) BUN 11 (9-16) mg/dL Creatinine 0.80 (0.5-1.4) mg/dL Estim Creat Clear Calc 58.7 Estimated GFR > 60 POC Glucose 113 (60-115) mg/dL Random Glucose 112 (60-115) mg/dL Lactic Acid (0.5-2.0) mmol/L Calcium 9.3 (8.4-10.2) mg/dL Troponin I High Sens < 2.7 (<3.5-17.0) ng/L Triglycerides 122 (<150) mg/dL Cholesterol 160 (<200) mg/dL LDL Cholesterol, Calc 72 (<100) mg/dL HDL Cholesterol 64 (>40) mg/dL Urine Color Yellow Urine Appearance Turbid Urine pH 8.0 (5.0-9.0) Ur Specific [place] 1.010 (1.005-1.025) Urine Protein 30 (1+) H (Neg-Trace) mg/dL Urine Glucose (UA) Negative (Negative) mg/dL Urine Ketones Negative (Negative) mg/dL Urine Blood Negative (Negative) Urine Nitrite Positive H (Negative) Ur Leukocyte Esterase Negative (Negative) Urine RBC 3-5 H (0-2) /HPF Urine WBC 0-5 (0-5) /HPF Ur Squamous Epith Cells >20 (0-2) /HPF Other Crystals Present Urine Bacteria 4+ (None Seen) Hyaline Casts 0-2 (0-2) /LPF 06/07/24 06/07/24 Range/Units 12:56 14:10 WBC (4.8-10.8) X10*3/uL RBC (4.20-5.50) X10*6/uL Hgb (12.0-16.0) g/dl Hct (37.0-47.0) % MCV (80.0-98.0) fL MCH (27.0-33.0) pg MCHC (31.0-35.0) g/dl RDW (11.0-16.0) % Plt Count (160-400) X10*3/uL MPV (9.4-12.3) fL Immature Gran % (Auto) (0.0-0.4) % Neut % (Auto) (45-73) % Lymph % (Auto) (20-40) % [place] % (Auto) (2-11) % Eos % (Auto) (0-4) % Baso % (Auto) (0-2) % Lymph # (Auto) (1.2-4.9) X10*3/uL [place] # (Auto) (0.1-1.2) X10*3/uL Eos # (Auto) (0.0-0.4) X10*3/uL Baso # (Auto) (0.0-0.2) X10*3/uL Abs Immat Gran (auto) (0.00-0.03) X10*3/uL Absolute Neuts (auto) (2.0-8.3) x10*3/uL Absolute Nucleated RBC (0.0-0.012) X10*3/uL Nucleated RBC % (auto) (0.0-0.2) /100WBC Hold Purple Top PT (10.9-12.4) SEC INR (0.9-1.1) APTT (26.0-36.8) SEC Sodium (135-145) mmol/L Potassium (3.3-5.1) mmol/L Chloride (96-108) mmol/L Carbon Dioxide (22-29) mmol/L Anion Gap (12-20) BUN (9-16) mg/dL Creatinine (0.5-1.4) mg/dL Estim Creat Clear Calc Estimated GFR POC Glucose (60-115) mg/dL Random Glucose (60-115) mg/dL Lactic Acid 1.6 (0.5-2.0) mmol/L Calcium (8.4-10.2) mg/dL Troponin I High Sens (<3.5-17.0) ng/L Triglycerides (<150) mg/dL Cholesterol (<200) mg/dL LDL Cholesterol, Calc (<100) mg/dL HDL Cholesterol (>40) mg/dL Urine Color Yellow Urine Appearance Turbid Urine pH 8.0 (5.0-9.0) Ur Specific [place] >= 1.030 H (1.005-1.025) Urine Protein Trace (Neg-Trace) mg/dL Urine Glucose (UA) Negative (Negative) mg/dL Urine Ketones Negative (Negative) mg/dL Urine Blood Negative (Negative) Urine Nitrite Positive H (Negative) Ur Leukocyte Esterase Negative (Negative) Urine RBC 3-5 H (0-2) /HPF Urine WBC 0-5 (0-5) /HPF Ur Squamous Epith Cells 3-5 (0-2) /HPF Other Crystals Urine Bacteria 4+ (None Seen) Hyaline Casts 0-2 (0-2) /LPF Discharge Plan Discharge Clinical Impression: Urinary tract infection Patient Disposition: Admitted As Inpatient Print Language: [place] Islander
--- NOTE | 2024-06-07 12:07 | ECG_ITS ---
Test Reason : STROKE ? Blood Pressure : */* mmHG Vent. 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
--- NOTE | 2024-06-07 12:19 | ED.NEUROSD ---
HPI - Neuro Symptoms/Deficit General Chief Complaint: Stroke Stated Complaint: incoherent, weak, uti Time Seen by Provider: 06/07/24 12:19 History of Present Illness HPI Narrative: Patient is an 88-year-old female with a history of UTIs in the past. Last known normal time was approximately 08:00. Patient was talking to her daughter at that time. Baseline awake alert oriented answering simple questions able to move arms and legs goes to the [facility] at approximately 12 noon patient came to the ED was noted to be confused. At 12:21 a stroke alert was called. Patient is of awake oriented times 0 unable to follow command grossly hand grasp is approximately equal. Patient's sugar was noted be greater than 100 there is no evidence for hypoglycemia. Sent to CT scanner immediately. Related Data Home Medications ?Medication ?Instructions ?Recorded ?Confirmed acetaminophen 500 mg tablet 1,000 mg PO Q6H PRN Pain 02/02/20 05/17/24 (Tylenol Extra Strength) cholecalciferol (vitamin D3) 50 50 mcg PO DAILY 12/22/23 05/17/24 mcg (2,000 unit) tablet (Vitamin D3) cyanocobalamin (vitamin B-12) 1,000 mcg PO MO 12/22/23 05/17/24 1,000 mcg tablet (Vitamin B-12) mirtazapine 7.5 mg tablet 7.5 mg PO BEDTIME PRN Sleep 12/22/23 05/17/24 nystatin 100,000 unit/gram topical 1 appl topical DAILY PRN Fungal 12/22/23 05/17/24 powder Infection Previous Rx's ?Medication ?Instructions ?Recorded BATH AND SHOWER STEP WITH HANDLE #1 ea 04/10/23 EASY RISE WALKER #1 ea 04/10/23 PAIN RELIEVING PATCHES WITH HEAT #60 ea 04/29/23 Contour plus bladder pads #3 ea 08/06/23 Pad liners for bed and chair #6 ea 08/06/23 gloves #1 ea 08/06/23 gloves #1 ea 08/06/23 underwear pull ups 3 per day #6 ea 08/06/23 flushable toilet wipes #5 ea 09/17/23 reclining lift chair. #1 ea 02/03/24 ketoconazole 2 % topical cream See Rx Instructions topical DAILY 02/05/24 #60 grams aspirin 81 mg tablet,delayed 81 mg PO DAILY #90 tabs 03/12/24 release omeprazole 20 mg capsule,delayed 20 mg PO DAILY@0630 #90 caps 03/12/24 release pravastatin 20 mg tablet 20 mg PO DAILY #90 tabs 03/12/24 fluticasone propionate 50 1 spray intranasal DAILY #48 mL 04/01/24 mcg/actuation nasal spray,suspension losartan 25 mg tablet 25 mg PO DAILY #30 tabs 04/25/24 benzonatate 200 mg capsule 200 mg PO BID-TID PRN cough #20 04/28/24 caps guaifenesin 600 mg tablet, 600 mg PO BID #14 tabs 05/04/24 extended release 12 hr (Mucinex) solifenacin 5 mg tablet (Vesicare) 5 mg PO DAILY 30 days #30 tabs 05/04/24 sulfamethoxazole 800 1 tab PO BID #14 tabs 05/13/24 mg-trimethoprim 160 mg tablet (Bactrim DS) estradiol 0.01% (0.1 mg/gram) 1 g vaginal 2XW #42.5 grams 05/24/24 vaginal cream albuterol sulfate 90 mcg/actuation 1 inh inhalation QID PRN shortness 06/02/24 aerosol inhaler of breath or wheezing #8.5 grams Allergies Allergy/AdvReac Type Severity Reaction Status Date / Time lisinopril Allergy Unknown cough Verified 06/07/24 12:07 Amlodipine AdvReac Intermediate Leg Uncoded 06/07/24 12:07 swelling Review of Systems Review of Systems: Obtained through patient's daughter claims that she has a history of UTI with similar symptoms in the past. This is not like her she has baseline awake alert oriented [facility] Past Medical History Medical History Altered mental status Acute encephalopathy Bilateral arm pain Osteoarthritis of knees, bilateral TIA (transient ischemic attack) Seizure disorder Knee osteoarthritis Urinary incontinence GERD (gastroesophageal reflux disease) COPD (chronic obstructive pulmonary disease) Obesity (BMI 30-39.9) Hypertension UTI (urinary tract infection) Hypertriglyceridemia Impaired glucose tolerance Vitamin D deficiency Surgical History H/O oophorectomy History of abdominal hysterectomy History of bilateral cataract extraction H/O left wrist surgery Family History Family History Father No problems noted. Mother Past heart attack Sister Diabetes Brother Prostate cancer Social History Social History Household Members: Family Housing: House Alcohol intake: never Patient Tobacco Use Status: Never used Tobacco Tobacco use type: Cigarette e-Cigarette/Vaping Use: Never Used Second Hand Smoke Exposure: No Advance Directives: Yes Advance Directives Information Provided: Yes Advance Directives on File: Yes Advance Directives Date on File: 12/23/23 service: No Current occupational status: retired Cognitive needs: Yes (cane, walker) Hearing needs: No Vision needs: Yes (glasses) Physical Exam Vital Signs: Vital Signs: Last Vital Signs Temp 98.4 F 06/07/24 14:12 Pulse 97 06/07/24 14:12 Resp 15 06/07/24 14:12 BP 162/65 H 06/07/24 14:12 Pulse Ox 93 06/07/24 14:12 O2 Del Method Room Air 06/07/24 14:12 BMI result Body Mass Index 31.6 Appearance: Alert. Oriented X0 No acute distress. Eyes: Pupils equal, round and reactive to light. ENT: Pharynx normal. Neck: Normal inspection. Neck supple. No lymph nodes noted. No crepitus CVS: Normal heart rate and rhythm. Pulses normal. Normal S1 and S2 Respiratory: No respiratory distress. Breath sounds normal. No Wheezing. No rales Abdomen: Soft and nontender. No rigidity. No distention. good BS x4 Skin: Skin warm and dry. Normal skin color. Normal skin turgor. Extremities: No lower extremity edema. Neurovascular intact to all extremities. No Lacerations. No Rash Neuro: Oriented X 0. No motor deficit. No sensory deficit. Moving all extermities. No slurred speech Medications Administered Discontinued Medications Generic Name Dose Route Start Last Admin Trade Name Freq PRN Reason Stop Dose Admin Ceftriaxone Sodium 1 gm 06/07/24 13:54 06/07/24 14:13 Ceftriaxone Sodium 1 Gm Vial IVPUSH 06/07/24 13:55 1 gm ONCE ONE Administration Medical Decision Making Medical Decision Making MDM Narrative: Sugar greater than 100 no evidence for hypoglycemia. Patient is not on any blood thinners. Last known well time was approximately 08:00. It is currently 1223 with patient is actually in the CT scanner. Has global confusion more consistent with a infection picture. [place] patient not a great candidate for tPA. Labs ordered. Will get cultures. Question UTI. CT scan of the head being done at this point. My interpretation of patient's CT scan of the head at 12:27 is grossly negative there is no evidence of bleeding. I reviewed radiology's reading of the CT angio. There is no large vessel occlusion. There is Multinodular thyroid concerning for possible goiter. patient's urine shows urinary tract infection cultures were obtained. Antibiotics started. Patient to be admitted for further evaluation. Differential Diagnosis Differential Diagnoses: The differential diagnosis associated with the presentation includes CVA, urinary tract infection, pneumonia, flu, RSV Admission/Observation Consideration of admission/observation: Escalation of care including admission/observation considered Consult Healthcare Provider Management of the patient was discussed with: Hospitalist Lab Data MDM Lab Attestation statement: I reviewed the patient's lab results. 06/07/24 12:37 06/07/24 12:37 Labs: Lab Results 06/07/24 06/07/24 06/07/24 Range/Units 12:15 12:37 12:45 WBC 7.8 (4.8-10.8) X10*3/uL RBC 4.51 (4.20-5.50) X10*6/uL Hgb 13.6 (12.0-16.0) g/dl Hct 41.1 (37.0-47.0) % MCV 91.1 (80.0-98.0) fL MCH 30.2 (27.0-33.0) pg MCHC 33.1 (31.0-35.0) g/dl RDW 13.4 (11.0-16.0) % Plt Count 261 (160-400) X10*3/uL MPV 9.6 (9.4-12.3) fL Immature Gran % (Auto) 0.4 (0.0-0.4) % Neut % (Auto) 61.6 (45-73) % Lymph % (Auto) 28.2 (20-40) % [place] % (Auto) 8.3 (2-11) % Eos % (Auto) 0.9 (0-4) % Baso % (Auto) 0.6 (0-2) % Lymph # (Auto) 2.2 (1.2-4.9) X10*3/uL [place] # (Auto) 0.7 (0.1-1.2) X10*3/uL Eos # (Auto) 0.1 (0.0-0.4) X10*3/uL Baso # (Auto) 0.1 (0.0-0.2) X10*3/uL Abs Immat Gran (auto) 0.03 (0.00-0.03) X10*3/uL Absolute Neuts (auto) 4.8 (2.0-8.3) x10*3/uL Absolute Nucleated RBC 0.000 (0.0-0.012) X10*3/uL Nucleated RBC % (auto) 0.0 (0.0-0.2) /100WBC Hold Purple Top SEE NOTE PT 11.2 (10.9-12.4) SEC INR 1.0 (0.9-1.1) APTT 28.7 (26.0-36.8) SEC Sodium 143 (135-145) mmol/L Potassium 4.4 (3.3-5.1) mmol/L Chloride 112 H (96-108) mmol/L Carbon Dioxide 25 (22-29) mmol/L Anion Gap 10 L (12-20) BUN 11 (9-16) mg/dL Creatinine 0.80 (0.5-1.4) mg/dL Estim Creat Clear Calc 58.7 Estimated GFR > 60 POC Glucose 113 (60-115) mg/dL Random Glucose 112 (60-115) mg/dL Lactic Acid (0.5-2.0) mmol/L Calcium 9.3 (8.4-10.2) mg/dL Troponin I High Sens < 2.7 (<3.5-17.0) ng/L Triglycerides 122 (<150) mg/dL Cholesterol 160 (<200) mg/dL LDL Cholesterol, Calc 72 (<100) mg/dL HDL Cholesterol 64 (>40) mg/dL Urine Color Yellow Urine Appearance Turbid Urine pH 8.0 (5.0-9.0) Ur Specific [place] 1.010 (1.005-1.025) Urine Protein 30 (1+) H (Neg-Trace) mg/dL Urine Glucose (UA) Negative (Negative) mg/dL Urine Ketones Negative (Negative) mg/dL Urine Blood Negative (Negative) Urine Nitrite Positive H (Negative) Ur Leukocyte Esterase Negative (Negative) Urine RBC 3-5 H (0-2) /HPF Urine WBC 0-5 (0-5) /HPF Ur Squamous Epith Cells >20 (0-2) /HPF Other Crystals Present Urine Bacteria 4+ (None Seen) Hyaline Casts 0-2 (0-2) /LPF 06/07/24 06/07/24 Range/Units 12:56 14:10 WBC (4.8-10.8) X10*3/uL RBC (4.20-5.50) X10*6/uL Hgb (12.0-16.0) g/dl Hct (37.0-47.0) % MCV (80.0-98.0) fL MCH (27.0-33.0) pg MCHC (31.0-35.0) g/dl RDW (11.0-16.0) % Plt Count (160-400) X10*3/uL MPV (9.4-12.3) fL Immature Gran % (Auto) (0.0-0.4) % Neut % (Auto) (45-73) % Lymph % (Auto) (20-40) % [place] % (Auto) (2-11) % Eos % (Auto) (0-4) % Baso % (Auto) (0-2) % Lymph # (Auto) (1.2-4.9) X10*3/uL [place] # (Auto) (0.1-1.2) X10*3/uL Eos # (Auto) (0.0-0.4) X10*3/uL Baso # (Auto) (0.0-0.2) X10*3/uL Abs Immat Gran (auto) (0.00-0.03) X10*3/uL Absolute Neuts (auto) (2.0-8.3) x10*3/uL Absolute Nucleated RBC (0.0-0.012) X10*3/uL Nucleated RBC % (auto) (0.0-0.2) /100WBC Hold Purple Top PT (10.9-12.4) SEC INR (0.9-1.1) APTT (26.0-36.8) SEC Sodium (135-145) mmol/L Potassium (3.3-5.1) mmol/L Chloride (96-108) mmol/L Carbon Dioxide (22-29) mmol/L Anion Gap (12-20) BUN (9-16) mg/dL Creatinine (0.5-1.4) mg/dL Estim Creat Clear Calc Estimated GFR POC Glucose (60-115) mg/dL Random Glucose (60-115) mg/dL Lactic Acid 1.6 (0.5-2.0) mmol/L Calcium (8.4-10.2) mg/dL Troponin I High Sens (<3.5-17.0) ng/L Triglycerides (<150) mg/dL Cholesterol (<200) mg/dL LDL Cholesterol, Calc (<100) mg/dL HDL Cholesterol (>40) mg/dL Urine Color Yellow Urine Appearance Turbid Urine pH 8.0 (5.0-9.0) Ur Specific [place] >= 1.030 H (1.005-1.025) Urine Protein Trace (Neg-Trace) mg/dL Urine Glucose (UA) Negative (Negative) mg/dL Urine Ketones Negative (Negative) mg/dL Urine Blood Negative (Negative) Urine Nitrite Positive H (Negative) Ur Leukocyte Esterase Negative (Negative) Urine RBC 3-5 H (0-2) /HPF Urine WBC 0-5 (0-5) /HPF Ur Squamous Epith Cells 3-5 (0-2) /HPF Other Crystals Urine Bacteria 4+ (None Seen) Hyaline Casts 0-2 (0-2) /LPF Independent Interpretation I performed an independent interpretation of an: EKG ( sinus heart rate is 90 there is a partial right bundle branch block there is no acute ST segment elevation. Not changed when compared to previous EKG) and CT Scan ( CT head negative) Radiology Impression Discussion of test interpretation with radiology: I have reviewed the radiologist's reading. External Record Review External record reviewed: Inpatient record Chronic Conditions Patient?s care impacted by: Hypertension Social Determinants Patient?s care significantly limited by Social Determinants of Health including: Problems related to primary support group NIH Stroke Scale Internal: Initial- Upon Arrival Time: 12:22 Level of Consciousness: Alert Level of Consciousness Questions: Answers neither question correctly Level of Consciousness Commands: Performs neither task correctly Best Gaze: Normal Visual: No visual loss Facial Palsy: Normal Motor Arm (Right): No drift Motor Arm (Left): No drift Motor Leg (Right): No drift Motor Leg (Left): No drift Limb Ataxia: Absent Sensory: Normal Best Language: Mute, global aphasia Dysarthia: Mild to moderate dysarthria Extinction and Inattention: No abnormality Score: 8 Discharge Plan Discharge Clinical Impression: Urinary tract infection Patient Disposition: Admitted As Inpatient Prescriptions: No Action (DME) PAIN RELIEVING PATCHES WITH HEAT See Rx Instructions .Route .MEDSUPPLY Qty: 60 12RF Rx Instructions: As directed (DME) gloves medium See Rx Instructions .Route .MEDSUPPLY Qty: 1 12RF Rx Instructions: As directed (DME) Contour plus bladder pads See Rx Instructions .Route .MEDSUPPLY Qty: 3 12RF Rx Instructions: As directed (DME) gloves large See Rx Instructions .Route .MEDSUPPLY Qty: 1 12RF Rx Instructions: As directed (DME) underwear pull ups 3 per day XL See Rx Instructions .Route .MEDSUPPLY Qty: 6 12RF Rx Instructions: As directed (DME) Pad liners for bed and chair See Rx Instructions .Route .MEDSUPPLY Qty: 6 12RF Rx Instructions: As directed (DME) flushable toilet wipes See Rx Instructions .Route .MEDSUPPLY Qty: 5 12RF Rx Instructions: As directed (DME) reclining lift chair. See Rx Instructions .Route .MEDSUPPLY Qty: 1 0RF Rx Instructions: As directed omeprazole 20 mg capsule,delayed release(DR/EC) 20 mg PO DAILY@0630 Qty: 90 2RF pravastatin 20 mg tablet 20 mg PO DAILY Qty: 90 2RF aspirin 81 mg tablet,delayed release (DR/EC) 81 mg PO DAILY Qty: 90 3RF fluticasone propionate 50 mcg/actuation spray,suspension 1 spray intranasal DAILY Qty: 48 2RF losartan 25 mg tablet 25 mg PO DAILY Qty: 30 1RF benzonatate 200 mg capsule 200 mg PO BID-TID PRN (Reason: cough) Qty: 20 0RF solifenacin [Vesicare] 5 mg tablet 5 mg PO DAILY 30 Days Qty: 30 3RF sulfamethoxazole-trimethoprim [Bactrim DS] 800-160 mg tablet 1 tab PO BID Qty: 14 0RF estradiol 0.01 % (0.1 mg/gram) cream 1 g vaginal 2XW Qty: 42.5 0RF albuterol sulfate 90 mcg/actuation HFA aerosol inhaler 1 inh inhalation QID PRN (Reason: shortness of breath or wheezing) Qty: 8.5 0RF nystatin 100,000 unit/gram powder 1 appl topical DAILY PRN (Reason: Fungal Infection) mirtazapine 7.5 mg tablet 7.5 mg PO BEDTIME PRN (Reason: Sleep) cyanocobalamin (vitamin B-12) [Vitamin B-12] 1,000 mcg Tablet 1,000 mcg PO MO cholecalciferol (vitamin D3) [Vitamin D3] 50 mcg (2,000 unit) Tablet 50 mcg PO DAILY acetaminophen [Tylenol Extra Strength] 500 mg tablet 1,000 mg PO Q6H PRN (Reason: Pain) (DME) EASY RISE WALKER See Rx Instructions .Route .MEDSUPPLY Qty: 1 0RF Rx Instructions: As directed (DME) BATH AND SHOWER STEP WITH HANDLE See Rx Instructions .Route .MEDSUPPLY Qty: 1 0RF Rx Instructions: As directed ketoconazole 2 % cream See Rx Instructions topical DAILY Qty: 60 2RF Rx Instructions: apply to under the breast and under belly fold topically daily; guaifenesin [Mucinex] 600 mg tablet extended release 12hr 600 mg PO BID Qty: 14 0RF Print Language: Lithuanian
[2024-06-07 12:20] LABS: Glucose, Whole Blood 113 mg/dL (60-115)
--- NOTE | 2024-06-07 12:26 | PC.NURSE ---
family at bedside states they spoke with her at 8am and she was going to go spend the day at the [facility]
[2024-06-07 12:43] LABS: MANUAL DIFF FLAG NO
[2024-06-07 12:49] LABS: Basophils Absolute Auto 0.1 X10*3/uL (0.0-0.2); Basophils Percent Auto 0.6 % (0-2); Eosinophils Absolute Auto 0.1 X10*3/uL (0.0-0.4); Eosinophils Percent Auto 0.9 % (0-4); Hematocrit 41.1 % (37.0-47.0); Hemoglobin 13.6 g/dl (12.0-16.0); Imm Gran Abs Auto 0.03 X10*3/uL (0.00-0.03); Imm Gran Pct Auto 0.4 % (0.0-0.4); Lymphocytes Absolute Auto 2.2 X10*3/uL (1.2-4.9); Lymphocytes Percent Auto 28.2 % (20-40); Mean Corpuscular HGB Conc 33.1 g/dl (31.0-35.0); Mean Corpuscular Hemoglobin 30.2 pg (27.0-33.0); Mean Corpuscular Volume 91.1 fL (80.0-98.0); Mean Platelet Volume 9.6 fL (9.4-12.3); Monocytes Absolute Auto 0.7 X10*3/uL (0.1-1.2); Monocytes Percent Auto 8.3 % (2-11); Neutrophils Absolute Auto 4.8 x10*3/uL (2.0-8.3); Neutrophils Percent Auto 61.6 % (45-73); Platelet Count 261 X10*3/uL (160-400); Red Blood Count 4.51 X10*6/uL (4.20-5.50); Red Cell Distribution Width 13.4 % (11.0-16.0); White Blood Count 7.8 X10*3/uL (4.8-10.8)
[2024-06-07 12:54] LABS: Appearance Urine Turbid; Color Urine Yellow; Glucose Urine UA Negative (Negative); Leukocyte Esterase Urine Negative (Negative); Nitrite Urine Positive (Negative); UMIC TRIGGER UACC YES; Urine Blood Negative (Negative); Urine Ketones Negative (Negative); Urine Protein 30 (1+) mg/dL (Neg-Trace)
[2024-06-07 12:56] LABS: Prothrombin Time 11.2 SEC (10.9-12.4)
[2024-06-07 12:58] LABS: Partial Thromboplastin Time 28.7 SEC (26.0-36.8)
[2024-06-07 12:59] LABS: Stroke Lab Use COMPLETE
[2024-06-07 13:07] LABS: Bacteria Urine 4+ (None Seen); Hyaline Casts Urine 0-2 /LPF (0-2); Other Crystals Urine Present; Squamous Epithelial Cell Urine >20 /HPF (0-2); UACC Culture Trigger YES; WBC Urine 0-5 /HPF (0-5)
[2024-06-07 13:11] LABS: Anion Gap 10 (12-20); Blood Urea Nitrogen 11 mg/dL (9-16); Calcium 9.3 mg/dL (8.4-10.2); Carbon Dioxide 25 mmol/L (22-29); Chloride 112 mmol/L (96-108); Cholesterol 160 mg/dL (<200); Creatinine Clr Calc Pharmacy 58.7; Estimated Glomerular Filt Rate > 60; Glucose Random 112 mg/dL (60-115); HDL Cholesterol 64 mg/dL (>40); LDL Cholesterol Calculated 72 mg/dL (<100); Potassium 4.4 mmol/L (3.3-5.1); Sodium 143 mmol/L (135-145); Triglycerides 122 mg/dL (<150)
--- NOTE | 2024-06-07 13:16 | MHC.STROKE ---
Patient arrived via private car for change in mental status, confusion. Upon triage, provider called Stroke Alert. Pt brought directly from triage to CT scanner. Evaluated by Dr. Johns Patient with increased confusion, unable to follow commands. LKWT approximately 8am Face symmetrical, no unilateral weakness appreciated. Answering in one to two word sentences. While in CT, IV that was started in triage noted to not be functioning. Delay in second scan due to needing to start an additional IV. Pt is a difficult stick Stroke Education reviewed with patient and daughter. Pamphlet provided. Patient will need reinforcement while daughter understands the information and is agreeable to plan. Daughter states recent UTI approximately 3 weeks ago. Reports increased confusion for patient when she has a UTI. Medical hx reviewed along with medications, activity, diet, social hx. Will continue to assist as needed.
[2024-06-07 13:17] LABS: Lactic Acid 1.6 mmol/L (0.5-2.0)
[2024-06-07 13:18] LABS: Troponin-I High Sensitivity < 2.7 ng/L (<3.5-17.0)
[2024-06-07 14:12] VITALS: BP 162/65; PULSE 97; RESP 15; TEMP 36.9; O2SAT 93
[2024-06-07] MEDS: cefTRIAXone sodium 1 GM VIAL IVPUSH (14:13)
[2024-06-07 14:19] LABS: Appearance Urine Turbid; Color Urine Yellow; Glucose Urine UA Negative (Negative); Leukocyte Esterase Urine Negative (Negative); Nitrite Urine Positive (Negative); Specific Gravity - Urine >= 1.030 (1.005-1.025); UMIC TRIGGER UACC YES; Urine Blood Negative (Negative); Urine Ketones Negative (Negative); Urine Protein Trace mg/dL (Neg-Trace)
[2024-06-07 14:31] LABS: Bacteria Urine 4+ (None Seen); Hyaline Casts Urine 0-2 /LPF (0-2); UACC Culture Trigger YES; WBC Urine 0-5 /HPF (0-5)
[2024-06-07 14:51] LABS: Glucose, Whole Blood 103 mg/dL (60-115)
[2024-06-07] MEDS: LORazepam 2 MG/ML VIAL 1 MG IVPUSH ×2 (15:00→23:21)
[2024-06-07] MEDS: Haloperidol Lactate 5 MG/ML VIAL 2.5 MG IM (15:25)
--- NOTE | 2024-06-07 15:42 | PM.IMHP ---
History of Present Illness Date of Service: 06/07/24 Attending physician on admission: Jed Marie Chief Complaint: confusion 88-year-old female with a PMH significant for HTN, HLD, GERD, and hx of CVA 30+ years ago who presents to the ED from the [facility] for evaluation of altered mental status. She was BIBA on stroke alert. Last known well time 0800 with symptom onset at 1030 per her daughter who is at bedside and is HCP. She has history of UTI with encephalopathy and is mew except for occasional screams and is behaving similarly to her daughter. She is moving all extremities and flailing in bed upon arrival to the room. Per her daughter, there was no reported slurred speech, facial droop, ataxia, weakness, or paresthesias. She was admitted in 12/15 with Enterobacter UTI and encephalopathy. On arrival to exam room, ER doctor reports that she had a witnessed 1 minute tonic-clonic seizure and was given Ativan at that time. Her daughter denies any known history of seizure activity. She was also given Keppra. During exam, patient is noted to be coughing and patient's daughter states this has been ongoing for several months. Denies any known history of chronic lung disease. Reports she has been tested for flu and COVID and has been negative. Since arrival, vital signs have been stable though slightly hypertensive to 162/65. There was no leukocytosis. Renal function and electrolyte levels are normal except for chloride 112. Troponin undetectable. Urinalysis with positive nitrites, 4+ bacteria, and elevated specific gravity. No leukocytes or WBCs noted, there is a small amount of squamous epithelial cells. Head CT negative for any acute intracranial abnormality. Head/neck CTA negative for any large vessel occlusion or embolus. No high-grade stenosis or dissection.. There is also concerning multinodular goiter. In the ED, has received Haldol, Ativan, and ceftriaxone. At 16:41, patient meeting sepsis criteria with temperature 102.4 degrees, tachypnea, tachycardia. No hypotension. Lactic acid at 12:56 1.6. Blood cultures x2 are pending Review of Systems Review of Systems: Yes Unobtainable due to mental condition [facility] Medical History Altered mental status Acute encephalopathy Bilateral arm pain Osteoarthritis of knees, bilateral TIA (transient ischemic attack) Seizure disorder Knee osteoarthritis Urinary incontinence GERD (gastroesophageal reflux disease) COPD (chronic obstructive pulmonary disease) Obesity (BMI 30-39.9) Hypertension UTI (urinary tract infection) Hypertriglyceridemia Impaired glucose tolerance Vitamin D deficiency Family History Father No problems noted. Mother Past heart attack Sister Diabetes Brother Prostate cancer Surgical History H/O oophorectomy History of abdominal hysterectomy History of bilateral cataract extraction H/O left wrist surgery Social History Household Members: Family Housing: House Alcohol intake: never Patient Tobacco Use Status: Never used Tobacco Tobacco use type: Cigarette e-Cigarette/Vaping Use: Never Used Second Hand Smoke Exposure: No Advance Directives: Yes Advance Directives Information Provided: Yes Advance Directives on File: Yes Advance Directives Date on File: 12/23/23 service: No Current occupational status: retired Cognitive needs: Yes (cane, walker) Hearing needs: No Vision needs: Yes (glasses) Meds Allergies Allergy/AdvReac Type Severity Reaction Status Date / Time lisinopril Allergy Unknown cough Verified 06/07/24 12:07 Amlodipine AdvReac Intermediate Leg Uncoded 06/07/24 12:07 swelling Active Medications: Current Medications Acetaminophen (Acetaminophen 325 Mg Tablet) 650 mg PO Q6H PRN PRN Reason: Pain, Mild 1-3,fever,headache Calcium Carbonate (Calcium Carbonate 750 Mg Tab.Chew) 750 mg PO Q4H PRN PRN Reason: Heartburn Enoxaparin Sodium (Enoxaparin Sodium 40 Mg/0.4 Ml Syringe) 40 mg SUBCUT Q24H MILIND Sodium Chloride (Ns) 1,000 mls @ 999 mls/hr IV .Q1H1M MILIND Stop: 06/07/24 15:45 Levofloxacin (Levaquin) 750 mg in 150 mls @ 100 mls/hr IV Q24H MILIND Magnesium Hydroxide (Milk Of Magnesia 30 Ml Oral.Susp) 30 ml PO DAILY PRN PRN Reason: Constipation Melatonin (Melatonin 3 Mg Tablet) 6 mg PO BEDTIME PRN PRN Reason: Insomnia Sodium Chloride (0.9 % Sodium Chloride Flush 3 Ml Syringe) 3 ml IVFLUSH QSHIFT [facility] Home Medications ?Medication ?Instructions ?Recorded ?Confirmed ?Last Taken ?Type acetaminophen 500 mg tablet 1,000 mg PO Q6H PRN Pain 02/02/20 05/17/24 Unknown History (Tylenol Extra Strength) cholecalciferol (vitamin D3) 50 50 mcg PO DAILY 12/22/23 05/17/24 12/22/23 History mcg (2,000 unit) tablet (Vitamin D3) cyanocobalamin (vitamin B-12) 1,000 mcg PO MO 12/22/23 05/17/24 12/22/23 History 1,000 mcg tablet (Vitamin B-12) mirtazapine 7.5 mg tablet 7.5 mg PO BEDTIME PRN Sleep 12/22/23 05/17/24 Unknown History nystatin 100,000 unit/gram topical 1 appl topical DAILY PRN Fungal 12/22/23 05/17/24 Unknown History powder Infection Physical Exam Vital Signs and Narrative: Vital Signs: Last Vital Signs Temp 98.4 F 06/07/24 14:12 Pulse 97 06/07/24 14:12 Resp 15 06/07/24 14:12 BP 162/65 H 06/07/24 14:12 Pulse Ox 93 06/07/24 14:12 O2 Del Method Room Air 06/07/24 14:12 BMI result Body Mass Index 31.6 Constitutional - Awake and Alert, No apparent distress Eyes - PERRLA, EOMI Cardiovascular - S1S2, RRR, No edema Respiratory - Normal lung expansion, Normal respiratory effort, No respiratory distress, CTA bilaterally Gastrointestinal - NT / ND; +BS; No rebound or guarding - No CVA tenderness Extremities - no calf tenderness bilaterally, no swelling Skin - Warm/Dry Neurological - Alert & disoriented, yelling, unable to fully assess cranial nerves due to encephalopathy but no slurred speech or facial droop noted and EOMs appear to be intact, moving all extremities independently Results Labs 06/07/24 12:37 06/07/24 12:37 Labs: Laboratory Results - last 24 hr 06/07/24 06/07/24 06/07/24 12:15 12:37 12:45 MCV 91.1 MCH 30.2 MCHC 33.1 RDW 13.4 Plt Count 261 MPV 9.6 Immature Gran % (Auto) 0.4 Neut % (Auto) 61.6 Lymph % (Auto) 28.2 [place] % (Auto) 8.3 Eos % (Auto) 0.9 Baso % (Auto) 0.6 Lymph # (Auto) 2.2 [place] # (Auto) 0.7 Eos # (Auto) 0.1 Baso # (Auto) 0.1 Abs Immat Gran (auto) 0.03 Absolute Neuts (auto) 4.8 Absolute Nucleated RBC 0.000 Nucleated RBC % (auto) 0.0 Hold Purple Top SEE NOTE PT 11.2 INR 1.0 APTT 28.7 Anion Gap 10 L Estim Creat Clear Calc 58.7 Estimated GFR > 60 POC Glucose 113 Random Glucose 112 Lactic Acid Calcium 9.3 Triglycerides 122 Cholesterol 160 LDL Cholesterol, Calc 72 HDL Cholesterol 64 Urine Color Yellow Urine Appearance Turbid Urine pH 8.0 Ur Specific [place] 1.010 Urine Protein 30 (1+) H Urine Glucose (UA) Negative Urine Ketones Negative Urine Blood Negative Urine Nitrite Positive H Ur Leukocyte Esterase Negative Urine RBC 3-5 H Urine WBC 0-5 Ur Squamous Epith Cells >20 Other Crystals Present Urine Bacteria 4+ Hyaline Casts 0-2 06/07/24 06/07/24 06/07/24 12:56 14:10 14:47 MCV MCH MCHC RDW Plt Count MPV Immature Gran % (Auto) Neut % (Auto) Lymph % (Auto) [place] % (Auto) Eos % (Auto) Baso % (Auto) Lymph # (Auto) [place] # (Auto) Eos # (Auto) Baso # (Auto) Abs Immat Gran (auto) Absolute Neuts (auto) Absolute Nucleated RBC Nucleated RBC % (auto) Hold Purple Top PT INR APTT Anion Gap Estim Creat Clear Calc Estimated GFR POC Glucose 103 Random Glucose Lactic Acid 1.6 Calcium Triglycerides Cholesterol LDL Cholesterol, Calc HDL Cholesterol Urine Color Yellow Urine Appearance Turbid Urine pH 8.0 Ur Specific [place] >= 1.030 H Urine Protein Trace Urine Glucose (UA) Negative Urine Ketones Negative Urine Blood Negative Urine Nitrite Positive H Ur Leukocyte Esterase Negative Urine RBC 3-5 H Urine WBC 0-5 Ur Squamous Epith Cells 3-5 Other Crystals Urine Bacteria 4+ Hyaline Casts 0-2 Imaging Radiologist's Impressions: Impressions Head CT 06/07/24 12:07 IMPRESSION: No acute intracranial abnormality. Electronically signed by: Gabriel Yeboah MD 06/07/2024 12:34 PM EDT RP Head/Neck CTA 06/07/24 12:31 IMPRESSION: No main cerebral artery occlusion or embolus. No high degree stenosis or dissection, vessels of the neck. Retropharyngeal trajectory, right ICA. Concerning multinodular goiter in the correct clinical settings. This critical test result is communicated to: Dr. Tricia Jhons on June 07, 2024. 1:02 PM. Electronically signed by: Tony Flores MD 06/07/2024 01:35 PM EDT RP Assessment and Plan (1) Urinary tract infection: Status: Acute (2) Cough: Status: Acute (3) Acute metabolic encephalopathy: Status: Acute Plan 88-year-old female with a PMH significant for HTN, HLD, GERD, and hx of CVA 30+ years ago admitted for Acute metabolic encephalopthy #Acute metabolic encephalopathy -?r/t UTI- Nitrite positive UA vs r/t ?seziure activity vs URI vs aspiration pneumonia -CTA of the head/neck negative. Head CT negative for acute intracranial abnormality. Low suspicion for CVA -see below -monitor mentation -daughter reports she will administer 3.75 mg of mirtazapine for agitation and is recommending this. However, based on examination, patient should be NPO -NPO diet. Continue IV fluids #Possible UTI -nitrite positive UA -history of Enterobacter UTI. Initiate Levaquin 750 mg daily (initiated 06/07) -no leukocytosis, no sepsis/severe sepsis #Suspected aspiration -CXR negative. Developed fever, tachycardia, adn tachypnea after admission -IV levaquin ordered. Add flagyl -Follow cbc #Sepsis -r/t aspiration vs UTI. Continue levaquin -febrile to 102.4, tachycardic, tachypneic at 14:51. No leukocytosis. Lactic acid at 12:53 1.6. Will repeat lactic acid now. Blood cultures pending x2 # possible seizure -per ED provider, patient had a 1 minute tonic-clonic seizure and was given Ativan as well as Keppra. No known history per daughter -EEG ordered -neurology consult -monitor on telemetry -hold on further antiepileptic medications # COUGH -per daughter has been ongoing for several months -check COVID, flu, RSV. Check chest x-ray -patient is at risk for aspiration. Levaquin and NPO diet as above # concerning multinodular goiter -noted on head/neck CTA -TSH with reflex free T4 ordered # hyperlipidemia/history of CVA -continue on aspirin, statin # hypertension -continue losartan # GERD -PPI DVT prophylaxis-Lovenox Full code Patient requires inpatient stay at least 2 midnights for management of acute metabolic encephalopathy of unclear etiology but suspected UTI which require IV antibiotics and close monitoring of mentation Quality Stroke Does the patient have a stroke diagnosis?: No VTE Prior VTE?: No VTE Risk Level:: Medical - moderate - high VTE Device Contraindication: Treatment Not Indicated VTE Drug Contraindication: N/A - Med Ordered
--- NOTE | 2024-06-07 16:00 | PC.NURSE ---
Pt brought in from waiting room with ?stroke like symptoms. Per daughter, lkw around 0800am, pt daughter noticed some facial droop and increased AMS. Alert- not oriented, not able to follow commands/respond to questions, respirations even and unlabored, no increased wob/sob, Sinus tach on air sampling and monitoring, HR- 110s. Approx 1500 pt had a 1 minute tonic-clonic seizure witnessed by MD at bedside. Verbal order for 1mg IVP Ativan by MD given, pt post-ictal, pulling at medical equipment/attempting to get out of bed/ not following commands. 20g IV left/right ac infiltrated, removed and ice packs placed on IV site- asymptomatic. Rectal temp of 102.3, MD aware, Rectal probe placed to monitor temp. IM medications given, refer to MAR for IM medications. Pt daughter requesting PO Mirtazapine to be given d/t pt agitation, this RN and MD educated daughter on NPO d/t inability to swallow effectively and increased risk for aspiration. Unable to obtain additional IV access with multiple RNs at bedside for assistance. Central line placed by Johns. Medications infusing through central line, refer to ROSA. Call garcia within reach, all needs met at this time.
[2024-06-07] MEDS: LORazepam 2 MG/ML VIAL 1 MG IM (16:01)
--- NOTE | 2024-06-07 16:25 | ED_ITS ---
HPI - Neuro Symptoms/Deficit General Chief Complaint: Stroke Stated Complaint: incoherent, weak, uti Time Seen by Provider: 06/07/24 12:19 Related Data Home Medications ?Medication ?Instructions ?Recorded ?Confirmed acetaminophen 500 mg tablet 1,000 mg PO Q6H PRN Pain 02/02/20 05/17/24 (Tylenol Extra Strength) cholecalciferol (vitamin D3) 50 50 mcg PO DAILY 12/22/23 05/17/24 mcg (2,000 unit) tablet (Vitamin D3) cyanocobalamin (vitamin B-12) 1,000 mcg PO MO 12/22/23 05/17/24 1,000 mcg tablet (Vitamin B-12) mirtazapine 7.5 mg tablet 7.5 mg PO BEDTIME PRN Sleep 12/22/23 05/17/24 nystatin 100,000 unit/gram topical 1 appl topical DAILY PRN Fungal 12/22/23 05/17/24 powder Infection Previous Rx's ?Medication ?Instructions ?Recorded BATH AND SHOWER STEP WITH HANDLE #1 ea 04/10/23 EASY RISE WALKER #1 ea 04/10/23 PAIN RELIEVING PATCHES WITH HEAT #60 ea 04/29/23 Contour plus bladder pads #3 ea 08/06/23 Pad liners for bed and chair #6 ea 08/06/23 gloves #1 ea 08/06/23 gloves #1 ea 08/06/23 underwear pull ups 3 per day #6 ea 08/06/23 flushable toilet wipes #5 ea 09/17/23 reclining lift chair. #1 ea 02/03/24 ketoconazole 2 % topical cream See Rx Instructions topical DAILY 02/05/24 #60 grams aspirin 81 mg tablet,delayed 81 mg PO DAILY #90 tabs 03/12/24 release omeprazole 20 mg capsule,delayed 20 mg PO DAILY@0630 #90 caps 03/12/24 release pravastatin 20 mg tablet 20 mg PO DAILY #90 tabs 03/12/24 fluticasone propionate 50 1 spray intranasal DAILY #48 mL 04/01/24 mcg/actuation nasal spray,suspension losartan 25 mg tablet 25 mg PO DAILY #30 tabs 04/25/24 benzonatate 200 mg capsule 200 mg PO BID-TID PRN cough #20 04/28/24 caps guaifenesin 600 mg tablet, 600 mg PO BID #14 tabs 05/04/24 extended release 12 hr (Mucinex) solifenacin 5 mg tablet (Vesicare) 5 mg PO DAILY 30 days #30 tabs 05/04/24 sulfamethoxazole 800 1 tab PO BID #14 tabs 05/13/24 mg-trimethoprim 160 mg tablet (Bactrim DS) estradiol 0.01% (0.1 mg/gram) 1 g vaginal 2XW #42.5 grams 05/24/24 vaginal cream albuterol sulfate 90 mcg/actuation 1 inh inhalation QID PRN shortness 06/02/24 aerosol inhaler of breath or wheezing #8.5 grams Allergies Allergy/AdvReac Type Severity Reaction Status Date / Time lisinopril Allergy Unknown cough Verified 06/07/24 12:07 Amlodipine AdvReac Intermediate Leg Uncoded 06/07/24 12:07 swelling PMFSH Past Medical History Medical History Altered mental status Acute encephalopathy Bilateral arm pain Osteoarthritis of knees, bilateral TIA (transient ischemic attack) Seizure disorder Knee osteoarthritis Urinary incontinence GERD (gastroesophageal reflux disease) COPD (chronic obstructive pulmonary disease) Obesity (BMI 30-39.9) Hypertension UTI (urinary tract infection) Hypertriglyceridemia Impaired glucose tolerance Vitamin D deficiency Surgical History H/O oophorectomy History of abdominal hysterectomy History of bilateral cataract extraction H/O left wrist surgery Family History Family History Father No problems noted. Mother Past heart attack Sister Diabetes Brother Prostate cancer Social History Social History Household Members: Family Housing: House Alcohol intake: never Patient Tobacco Use Status: Never used Tobacco Tobacco use type: Cigarette e-Cigarette/Vaping Use: Never Used Second Hand Smoke Exposure: No Advance Directives: Yes Advance Directives Information Provided: Yes Advance Directives on File: Yes Advance Directives Date on File: 12/23/23 service: No Current occupational status: retired Cognitive needs: Yes (cane, walker) Hearing needs: No Vision needs: Yes (glasses) Physical Exam 2 Vital Signs: Vital Signs: Last Vital Signs Temp 98.4 F 06/07/24 14:12 Pulse 97 06/07/24 14:12 Resp 15 06/07/24 14:12 BP 162/65 H 06/07/24 14:12 Pulse Ox 93 06/07/24 14:12 O2 Del Method Room Air 06/07/24 14:12 BMI result Body Mass Index 31.6 Medications Administered Discontinued Medications Generic Name Dose Route Start Last Admin Trade Name Johnq PRN Reason Stop Dose Admin Ceftriaxone Sodium 1 gm 06/07/24 13:54 06/07/24 14:13 Ceftriaxone Sodium 1 Gm Vial IVPUSH 06/07/24 13:55 1 gm ONCE ONE Administration Haloperidol Lactate 2.5 mg 06/07/24 15:15 06/07/24 15:25 Haloperidol Lactate 5 Mg/Ml Vial IM 06/07/24 15:16 2.5 mg ONCE ONE Administration Lorazepam 1 mg 06/07/24 14:43 06/07/24 15:00 Lorazepam 2 Mg/Ml Vial IVPUSH 06/07/24 14:44 1 mg ONCE ONE Administration Procedures Central Line Placement Right Femoral: Time Out Performed: Yes Patient Placed on Monitor/Pulse Ox: Yes MD Prep: mask, gown and gloves Central Line Prep: Chlorhexidine scrub Local Anesthetic: lidocaine 1% Amount of anesthesia used (mL): 5 Central Line Lumen Inserted: triple Post Procedure: sutured in place, good blood return, all ports aspirated, flushed, capped and sterile dressing applied Complications: none Medical Decision Making Medical Decision Making MDM Narrative: Patient had an episode of seizure that appears to be tonic clonic while in the ED. Ativan was given for sedation and for seizure. Patient was loaded with Keppra [address] scan of the head and CTA of the head was done earlier. They were negative. Patient had a fever 102 a dose of rectal Tylenol was given. Patient extremely agitated. Multiple doses of medication were given including Haldol Ativan. Moderate relief patient is still agitated could be secondary to fever. Patient had blood cultures earlier antibiotic was given for the urinary tract infection. Because we can not obtain good access in the 2 IV lines that we did have were loss. I put in a femoral central line. There was no complications. IV fluid is being infused. hospitalist made aware patient to be admitted I have personally provided 40 minutes of critical care time exclusive of time spent on separately billable procedures. Time includes review of lab data, radiology results, discussion with consultants, and monitoring for potential decompensation. Interventions were performed as documented above Lab Data 06/07/24 12:37 06/07/24 12:37 Labs: Lab Results 06/07/24 06/07/24 06/07/24 Range/Units 12:15 12:37 12:45 WBC 7.8 (4.8-10.8) X10*3/uL RBC 4.51 (4.20-5.50) X10*6/uL Hgb 13.6 (12.0-16.0) g/dl Hct 41.1 (37.0-47.0) % MCV 91.1 (80.0-98.0) fL MCH 30.2 (27.0-33.0) pg MCHC 33.1 (31.0-35.0) g/dl RDW 13.4 (11.0-16.0) % Plt Count 261 (160-400) X10*3/uL MPV 9.6 (9.4-12.3) fL Immature Gran % (Auto) 0.4 (0.0-0.4) % Neut % (Auto) 61.6 (45-73) % Lymph % (Auto) 28.2 (20-40) % [place] % (Auto) 8.3 (2-11) % Eos % (Auto) 0.9 (0-4) % Baso % (Auto) 0.6 (0-2) % Lymph # (Auto) 2.2 (1.2-4.9) X10*3/uL [place] # (Auto) 0.7 (0.1-1.2) X10*3/uL Eos # (Auto) 0.1 (0.0-0.4) X10*3/uL Baso # (Auto) 0.1 (0.0-0.2) X10*3/uL Abs Immat Gran (auto) 0.03 (0.00-0.03) X10*3/uL Absolute Neuts (auto) 4.8 (2.0-8.3) x10*3/uL Absolute Nucleated RBC 0.000 (0.0-0.012) X10*3/uL Nucleated RBC % (auto) 0.0 (0.0-0.2) /100WBC Hold Purple Top SEE NOTE PT 11.2 (10.9-12.4) SEC INR 1.0 (0.9-1.1) APTT 28.7 (26.0-36.8) SEC Sodium 143 (135-145) mmol/L Potassium 4.4 (3.3-5.1) mmol/L Chloride 112 H (96-108) mmol/L Carbon Dioxide 25 (22-29) mmol/L Anion Gap 10 L (12-20) BUN 11 (9-16) mg/dL Creatinine 0.80 (0.5-1.4) mg/dL Estim Creat Clear Calc 58.7 Estimated GFR > 60 POC Glucose 113 (60-115) mg/dL Random Glucose 112 (60-115) mg/dL Lactic Acid (0.5-2.0) mmol/L Calcium 9.3 (8.4-10.2) mg/dL Troponin I High Sens < 2.7 (<3.5-17.0) ng/L Triglycerides 122 (<150) mg/dL Cholesterol 160 (<200) mg/dL LDL Cholesterol, Calc 72 (<100) mg/dL HDL Cholesterol 64 (>40) mg/dL Urine Color Yellow Urine Appearance Turbid Urine pH 8.0 (5.0-9.0) Ur Specific [place] 1.010 (1.005-1.025) Urine Protein 30 (1+) H (Neg-Trace) mg/dL Urine Glucose (UA) Negative (Negative) mg/dL Urine Ketones Negative (Negative) mg/dL Urine Blood Negative (Negative) Urine Nitrite Positive H (Negative) Ur Leukocyte Esterase Negative (Negative) Urine RBC 3-5 H (0-2) /HPF Urine WBC 0-5 (0-5) /HPF Ur Squamous Epith Cells >20 (0-2) /HPF Other Crystals Present Urine Bacteria 4+ (None Seen) Hyaline Casts 0-2 (0-2) /LPF 06/07/24 06/07/24 06/07/24 Range/Units 12:56 14:10 14:47 WBC (4.8-10.8) X10*3/uL RBC (4.20-5.50) X10*6/uL Hgb (12.0-16.0) g/dl Hct (37.0-47.0) % MCV (80.0-98.0) fL MCH (27.0-33.0) pg MCHC (31.0-35.0) g/dl RDW (11.0-16.0) % Plt Count (160-400) X10*3/uL MPV (9.4-12.3) fL Immature Gran % (Auto) (0.0-0.4) % Neut % (Auto) (45-73) % Lymph % (Auto) (20-40) % [place] % (Auto) (2-11) % Eos % (Auto) (0-4) % Baso % (Auto) (0-2) % Lymph # (Auto) (1.2-4.9) X10*3/uL [place] # (Auto) (0.1-1.2) X10*3/uL Eos # (Auto) (0.0-0.4) X10*3/uL Baso # (Auto) (0.0-0.2) X10*3/uL Abs Immat Gran (auto) (0.00-0.03) X10*3/uL Absolute Neuts (auto) (2.0-8.3) x10*3/uL Absolute Nucleated RBC (0.0-0.012) X10*3/uL Nucleated RBC % (auto) (0.0-0.2) /100WBC Hold Purple Top PT (10.9-12.4) SEC INR (0.9-1.1) APTT (26.0-36.8) SEC Sodium (135-145) mmol/L Potassium (3.3-5.1) mmol/L Chloride (96-108) mmol/L Carbon Dioxide (22-29) mmol/L Anion Gap (12-20) BUN (9-16) mg/dL Creatinine (0.5-1.4) mg/dL Estim Creat Clear Calc Estimated GFR POC Glucose 103 (60-115) mg/dL Random Glucose (60-115) mg/dL Lactic Acid 1.6 (0.5-2.0) mmol/L Calcium (8.4-10.2) mg/dL Troponin I High Sens (<3.5-17.0) ng/L Triglycerides (<150) mg/dL Cholesterol (<200) mg/dL LDL Cholesterol, Calc (<100) mg/dL HDL Cholesterol (>40) mg/dL Urine Color Yellow Urine Appearance Turbid Urine pH 8.0 (5.0-9.0) Ur Specific [place] >= 1.030 H (1.005-1.025) Urine Protein Trace (Neg-Trace) mg/dL Urine Glucose (UA) Negative (Negative) mg/dL Urine Ketones Negative (Negative) mg/dL Urine Blood Negative (Negative) Urine Nitrite Positive H (Negative) Ur Leukocyte Esterase Negative (Negative) Urine RBC 3-5 H (0-2) /HPF Urine WBC 0-5 (0-5) /HPF Ur Squamous Epith Cells 3-5 (0-2) /HPF Other Crystals Urine Bacteria 4+ (None Seen) Hyaline Casts 0-2 (0-2) /LPF Discharge Plan Discharge Clinical Impression: Urinary tract infection Patient Disposition: Admitted As Inpatient Print Language: Slovenian
[2024-06-07] MEDS: Acetaminophen Supp 650 MG SUPP.RECT PR (16:32)
[2024-06-07] MEDS: levETIRAcetam in NaCl (iso-os) 1,000 MG/100 ML PIGGYBACK 400 MG IV (16:35)
[2024-06-07] MEDS: 0.9 % Sodium Chloride 1,000 ML 999 ML IV (16:35)
[2024-06-07 16:36] LABS: Influenza A PCR NEGATIVE (Negative); Influenza B PCR NEGATIVE (Negative); Resp Syncy Virus RNA Qual PCR NEGATIVE (Negative); SARS COV2 PCR INHOUSE NEGATIVE (Negative)
[2024-06-07] MEDS: Ketorolac Tromethamine 15 MG/ML VIAL IVPUSH (16:39)
[2024-06-07] MEDS: levoFLOXacin/D5W 750 MG/150 ML PIGGYBACK 100 MG IV (16:45)
[2024-06-07 16:51] VITALS: BP 128/49; PULSE 118; RESP 22; TEMP 39.1; O2SAT 100
[2024-06-07] MEDS: Mirtazapine 7.5 MG TABLET PO (17:59)
[2024-06-07] MEDS: Enoxaparin Sodium 40 MG/0.4 ML SYRINGE SUBCUT (18:01)
[2024-06-07 18:13] VITALS: BP 136/82; PULSE 109; RESP 24; TEMP 37; O2SAT 95
[2024-06-07 18:28] LABS: Lactic Acid 1.7 mmol/L (0.5-2.0)
[2024-06-07] MEDS: metroNIDAZOLE/NS 500 MG/100 ML PIGGYBACK 100 MG IV (18:30)
--- NOTE | 2024-06-07 18:48 | PC.NURSE ---
Swallow screen done at bedside with additional RN Mandi. Pt able to sit upright, unable to hold liquid in mouth/follow commands. This RN and additional RN agreed pt cannot safely swallow and will reapproach again when pt is more alert. Pt daughter took cup and tried to make pt swallow water. Pt able to safely swallow the water- no coughing after swallow. This RN reached out to Mariia LE, plan to keep pt NPO until more alert/oriented. Pt responsive to verbal stimuli, not able to follow commands at this time. Temp decreased to 98.6 rectally. Family at bedside, call garcia within reach.
[2024-06-07] MEDS: 0.9 % Sodium Chloride Flush 3 ML SYRINGE IVFLUSH (19:05)
--- NOTE | 2024-06-07 19:23 | PHA.MEDREC ---
Addendum entered by Michael Ocampo RPh 06/07/24 19:58: Reviewed by [facility]. Original Note: Pharmacy Consult ? Medication Reconciliation Pharmacy has completed the medication reconciliation. Spoke to patient daughter at bedside to confirm med list. Daughter states patient is not taking Benzonatate 200 mg, Guaifenesin 600 mg and Bactrim DS, Solifenacin 5 mg (hasn't started yet). Daughter confirmed Vitamin B-12 is every Friday , Estradiol 0.01% is Friday and .
--- NOTE | 2024-06-07 20:00 | MHC.EDTECH ---
Care taken over at 1900. PT observed to be very restless with family at bedside. PT found wet. PT changed, dry and clean. PT still restless, grabbing at wires and unable to sit still.
[2024-06-07 21:30] VITALS: TEMP 39.2
[2024-06-07] MEDS: Acetaminophen 1,000 MG/100 ML PIGGYBACK 400 MG IV (21:47)
[2024-06-08] VITALS (9 sets, daily range): BP systolic 92–143; BP diastolic 48–73; PULSE 71–88; RESP 17–20; TEMP 36.4–37.8; O2SAT 93–100
[2024-06-08] MEDS: metroNIDAZOLE/NS 500 MG/100 ML PIGGYBACK 100 MG IV ×3 (02:07→19:04)
[2024-06-08 07:04] LABS: MANUAL DIFF FLAG NO
[2024-06-08 07:09] LABS: Basophils Percent Auto 0.2 % (0-2); Eosinophils Percent Auto 0.1 % (0-4); Hematocrit 33.7 % (37.0-47.0); Hemoglobin 11.2 g/dl (12.0-16.0); Imm Gran Abs Auto 0.05 X10*3/uL (0.00-0.03); Imm Gran Pct Auto 0.5 % (0.0-0.4); Lymphocytes Absolute Auto 2.6 X10*3/uL (1.2-4.9); Lymphocytes Percent Auto 28.5 % (20-40); Mean Corpuscular HGB Conc 33.2 g/dl (31.0-35.0); Mean Corpuscular Hemoglobin 30.2 pg (27.0-33.0); Mean Corpuscular Volume 90.8 fL (80.0-98.0); Mean Platelet Volume 9.6 fL (9.4-12.3); Monocytes Percent Auto 10.9 % (2-11); Neutrophils Absolute Auto 5.5 x10*3/uL (2.0-8.3); Neutrophils Percent Auto 59.8 % (45-73); Platelet Count 215 X10*3/uL (160-400); Red Blood Count 3.71 X10*6/uL (4.20-5.50); Red Cell Distribution Width 13.3 % (11.0-16.0); White Blood Count 9.2 X10*3/uL (4.8-10.8)
[2024-06-08 07:22] LABS: Anion Gap 11 (12-20); Blood Urea Nitrogen 12 mg/dL (9-16); Calcium 8.7 mg/dL (8.4-10.2); Carbon Dioxide 25 mmol/L (22-29); Chloride 110 mmol/L (96-108); Creatinine Clr Calc Pharmacy 61.7; Estimated Glomerular Filt Rate > 60; Glucose Random 84 mg/dL (60-115); Potassium 3.7 mmol/L (3.3-5.1); Sodium 142 mmol/L (135-145)
[2024-06-08 07:59] LABS: C Reactive Protein 0.34 mg/dL (< or = 0.50)
[2024-06-08 08:14] LABS: Procalcitonin 0.21 ng/mL
[2024-06-08] MEDS: 0.9 % Sodium Chloride Flush 3 ML SYRINGE IVFLUSH ×3 (09:24→23:05)
[2024-06-08 11:05] LABS: Prothrombin Time Whole Bld POC 10.9 sec (11.1-13.5); ~PT, ~INR - Anti Coag Clinic 0.9 (0.9-1.1)
--- NOTE | 2024-06-08 11:37 | PM.NEUROCN ---
History of Present Illness Data of Consult Service Date: 06/08/24 Primary Care Provider: Nicola Lebron MD [facility] Reason for consult: Change in mental status 88 years old woman who came to hospital with change in mental status and and was initially evaluated for possible stroke. He was also febrile and was being treated for possible urinary tract infection. Consultation was requested for possibility of seizure causing change in mental status. She was unable to provide any meaningful history. Review of Systems Review of Systems: Could not be done with [facility] Past Medical History Medical History Altered mental status Acute encephalopathy Bilateral arm pain Osteoarthritis of knees, bilateral TIA (transient ischemic attack) Seizure disorder Knee osteoarthritis Urinary incontinence GERD (gastroesophageal reflux disease) COPD (chronic obstructive pulmonary disease) Obesity (BMI 30-39.9) Hypertension UTI (urinary tract infection) Hypertriglyceridemia Impaired glucose tolerance Vitamin D deficiency Family History Family History Father No problems noted. Mother Past heart attack Sister Diabetes Brother Prostate cancer Surgical History Surgical History H/O oophorectomy History of abdominal hysterectomy History of bilateral cataract extraction H/O left wrist surgery Social History Social History Household Members: Children Housing: Unknown / Unable to assess Alcohol intake: never Patient Tobacco Use Status: Never used Tobacco Tobacco use type: Cigarette Smoked in Last 30 Days: No e-Cigarette/Vaping Use: Never Used Second Hand Smoke Exposure: No Use of substances other than those prescribed or required for medical reasons: Unable to respond Advance Directives: Yes Advance Directives Information Provided: Yes Advance Directives on File: Yes Advance Directives Date on File: 12/23/23 Recently lost weight without trying: Unsure Nutrition Risks: No Nutritional Risk Patient : No service: No Current occupational status: retired Cognitive needs: Yes (cane, walker) Hearing needs: No Vision needs: Yes (glasses) Meds Allergies Allergy/AdvReac Type Severity Reaction Status Date / Time lisinopril Allergy Unknown cough Verified 06/07/24 12:07 Amlodipine AdvReac Intermediate Leg Uncoded 06/07/24 12:07 swelling Active Medications: Current Medications Acetaminophen (Acetaminophen 325 Mg Tablet) 650 mg PO Q6H PRN PRN Reason: Pain, Mild 1-3,fever,headache Albuterol Sulfate (Albuterol Sulfate 90 Mcg 8 Gm Inhaler) 1 puff INHALE QID PRN PRN Reason: shortness of breath or wheezing Aspirin (Aspirin Enteric Coated 81 Mg Tablet.) 81 mg PO DAILY [facility] Last Admin: 06/08/24 08:15 Dose: Not Given Calcium Carbonate (Calcium Carbonate 750 Mg Tab.Chew) 750 mg PO Q4H PRN PRN Reason: Heartburn Clotrimazole (Clotrimazole 1 % Cream 15 Gm Tube) 1 appl TOPICAL DAILY [facility] Last Admin: 06/08/24 08:20 Dose: Not Given Cyanocobalamin (Cyanocobalamin (Vitamin B-12) 1,000 Mcg Tablet) 1,000 mcg PO MO MILIND Enoxaparin Sodium (Enoxaparin Sodium 40 Mg/0.4 Ml Syringe) 40 mg SUBCUT Q24H [facility] Last Admin: 06/07/24 18:01 Dose: 40 mg Fluticasone Propionate (Fluticasone Propionate Nasal 16 Gm [place]) 1 spray NOSTRIL-B DAILY PRN PRN Reason: Allergy Symptoms Levofloxacin (Levaquin) 750 mg in 150 mls @ 100 mls/hr IV Q24H [facility] Last Infusion: 06/07/24 18:30 Dose: Infused Metronidazole (Flagyl) 500 mg in 100 mls @ 100 mls/hr IV Q8H [facility] Last Infusion: 06/08/24 10:41 Dose: Infused Losartan Potassium (Losartan Potassium 25 Mg Tablet) 25 mg PO DAILY [facility]; Protocol Last Admin: 06/08/24 08:15 Dose: Not Given Magnesium Hydroxide (Milk Of Magnesia 30 Ml Oral.Susp) 30 ml PO DAILY PRN PRN Reason: Constipation Melatonin (Melatonin 3 Mg Tablet) 6 mg PO BEDTIME PRN PRN Reason: Insomnia Mirtazapine (Mirtazapine 7.5 Mg Tablet) 7.5 mg PO BEDTIME PRN PRN Reason: Sleep Nystatin (Nystatin Powder 15 Gm Bottle) 1 appl TOPICAL DAILY PRN; Protocol PRN Reason: Fungal Infection Omeprazole (Omeprazole 20 Mg Capsule.) 20 mg PO DAILY@0630 [facility] Pravastatin Sodium (Pravastatin Sodium 20 Mg Tablet) 20 mg PO DAILY [facility] Last Admin: 06/08/24 08:16 Dose: Not Given Sodium Chloride (0.9 % Sodium Chloride Flush 3 Ml Syringe) 3 ml IVFLUSH QSHIFT [facility] Last Admin: 06/08/24 09:24 Dose: 3 ml Vitamin D (Cholecalciferol (Vitamin D3) 25 Mcg Tablet) 50 mcg PO DAILY [facility] Last Admin: 06/08/24 08:15 Dose: Not Given Home Medications ?Medication ?Instructions ?Recorded ?Confirmed ?Last Taken ?Type acetaminophen 500 mg tablet 1,000 mg PO Q6H PRN Pain 02/02/20 06/07/24 Unknown History (Tylenol Extra Strength) cholecalciferol (vitamin D3) 50 50 mcg PO DAILY 12/22/23 06/07/24 06/07/24 History mcg (2,000 unit) tablet (Vitamin D3) cyanocobalamin (vitamin B-12) 1,000 mcg PO MO 12/22/23 06/07/24 05/31/24 History 1,000 mcg tablet (Vitamin B-12) mirtazapine 7.5 mg tablet 7.5 mg PO BEDTIME PRN Sleep 12/22/23 06/07/24 Unknown History nystatin 100,000 unit/gram topical 1 appl topical DAILY PRN Fungal 12/22/23 06/07/24 Unknown History powder Infection estradiol 0.01% (0.1 mg/gram) 1 g vaginal TUTH 06/07/24 06/07/24 06/07/24 History vaginal cream fluticasone propionate 50 1 spray intranasal DAILY PRN 06/07/24 06/07/24 Unknown History mcg/actuation nasal Allergy Symptoms spray,suspension Physical Exam Vital Signs: Vital Signs: Last Vital Signs Temp 98.2 F 06/08/24 08:00 Pulse 73 06/08/24 08:00 Resp 17 06/08/24 08:00 BP 139/60 06/08/24 08:00 Pulse Ox 97 06/08/24 08:00 O2 Del Method Room Air 06/08/24 08:00 BMI result Body Mass Index 31.6 Neuro: Other: She is drowsy but was able to open eyes and make an eye contact. In answer to many question she kept on saying ?yes?. She was not following commands. Face was symmetrical. Visual santiago could not be tested. There was no obvious focal arm or leg weakness. Plantars were flexor. Exam was limited. Results Labs 06/08/24 06:33 06/08/24 06:33 Labs: Short CBC 06/07/24 06/08/24 Range/Units 12:37 06:33 WBC 7.8 9.2 (4.8-10.8) X10*3/uL Hgb 13.6 11.2 L (12.0-16.0) g/dl Hct 41.1 33.7 L (37.0-47.0) % Plt Count 261 215 (160-400) X10*3/uL BMP 06/07/24 06/08/24 12:37 06:33 Sodium 143 142 Potassium 4.4 3.7 Chloride 112 H 110 H Carbon Dioxide 25 25 BUN 11 12 Creatinine 0.80 0.76 Calcium 9.3 8.7 D Urine 06/07/24 06/07/24 Range/Units 12:45 14:10 Urine Color Yellow Yellow Urine Appearance Turbid Turbid Urine pH 8.0 8.0 (5.0-9.0) Ur Specific [place] 1.010 >= 1.030 H (1.005-1.025) Urine Protein 30 (1+) H Trace (Neg-Trace) mg/dL Urine Glucose (UA) Negative Negative (Negative) mg/dL Head CT revealed moderately severe diffuse hypodense signal abnormalities and white matter suggestive of chronic microvascular disease. Microbiology Microbiology Results: Microbiology 06/07/24 Unknown Urine Catheterized - Straight Catheter Urine Culture - Preliminary Culture in progress. 06/07/24 Unknown Urine clean catch - Clean Catch Midstream Urine Culture - Final Assessment and Plan (1) Encephalopathy: Qualifiers: Encephalopathy type: unspecified encephalopathy Qualified Code(s): G93.40 - Encephalopathy, unspecified Status: Acute 88 years old woman who at this point was encephalopathic. Etiology was unclear. There was fair possibility of infectious versus epileptic encephalopathy. Without lumbar puncture, 1 can not rule out encephalitis. I recommend covering her for encephalitis, if possible obtain CSF sample, an EEG. Procedures Date of Service Date of Service: 06/08/24
--- NOTE | 2024-06-08 12:01 | HO.PM.IMPN ---
Subjective Subjective Date of Service: 06/08/24 Interval History: confused, unable to obtain ROS last fever 102.5 at 21:30 Review of Systems Review of Systems: Yes Unobtainable due to mental status Physical Exam Vital Signs: Vital Signs: Last Vital Signs Temp 98.6 F 06/08/24 11:39 Pulse 73 06/08/24 11:39 Resp 20 06/08/24 11:39 BP 118/63 06/08/24 11:39 Pulse Ox 100 06/08/24 11:39 O2 Del Method Room Air 06/08/24 11:39 BMI result Body Mass Index 31.6 Gen: somnolent HEENT: sclera anicteric, moist mucus membranes Neck: supple Lungs: clear to auscultation bilaterally Heart: regular rate and rhythm, no murmurs Abd: soft, non-tender, non-distended Ext: no edema Skin: warm/well-perfused Neuro: somnolent but arousable, unable to assess orientation, moving all extremities Psych: impaired insight Objective Data Active Medications Acetaminophen (Acetaminophen 325 Mg Tablet) 650 mg PO Q6H PRN PRN Reason: Pain, Mild 1-3,fever,headache Albuterol Sulfate (Albuterol Sulfate 90 Mcg 8 Gm Inhaler) 1 puff INHALE QID PRN PRN Reason: shortness of breath or wheezing Aspirin (Aspirin Enteric Coated 81 Mg Tablet.Dr) 81 mg PO DAILY [facility] Last Admin: 06/08/24 08:15 Dose: Not Given Documented By: MICHEL Non-Admin Reason: NPO Calcium Carbonate (Calcium Carbonate 750 Mg Tab.Chew) 750 mg PO Q4H PRN PRN Reason: Heartburn Clotrimazole (Clotrimazole 1 % Cream 15 Gm Tube) 1 appl TOPICAL DAILY [facility] Last Admin: 06/08/24 08:20 Dose: Not Given Documented By: MICHEL Non-Admin Reason: Med Not Available Cyanocobalamin (Cyanocobalamin (Vitamin B-12) 1,000 Mcg Tablet) 1,000 mcg PO MO [facility] Enoxaparin Sodium (Enoxaparin Sodium 40 Mg/0.4 Ml Syringe) 40 mg SUBCUT Q24H [facility] Last Admin: 06/07/24 18:01 Dose: 40 mg Documented By: CORA Fluticasone Propionate (Fluticasone Propionate Nasal 16 Gm [place]) 1 spray NOSTRIL-B DAILY PRN PRN Reason: Allergy Symptoms Levofloxacin (Levaquin) 750 mg in 150 mls @ 100 mls/hr IV Q24H [facility] Last Infusion: 06/07/24 18:30 Dose: Infused Documented By: CORA Metronidazole (Flagyl) 500 mg in 100 mls @ 100 mls/hr IV Q8H [facility] Last Infusion: 06/08/24 10:41 Dose: Infused Documented By: MICHEL Losartan Potassium (Losartan Potassium 25 Mg Tablet) 25 mg PO DAILY [facility]; Protocol Last Admin: 06/08/24 08:15 Dose: Not Given Documented By: MICHEL Non-Admin Reason: NPO Magnesium Hydroxide (Milk Of Magnesia 30 Ml Oral.Susp) 30 ml PO DAILY PRN PRN Reason: Constipation Melatonin (Melatonin 3 Mg Tablet) 6 mg PO BEDTIME PRN PRN Reason: Insomnia Mirtazapine (Mirtazapine 7.5 Mg Tablet) 7.5 mg PO BEDTIME PRN PRN Reason: Sleep Nystatin (Nystatin Powder 15 Gm Bottle) 1 appl TOPICAL DAILY PRN; Protocol PRN Reason: Fungal Infection Omeprazole (Omeprazole 20 Mg Capsule.Dr) 20 mg PO DAILY@0630 [facility] Pravastatin Sodium (Pravastatin Sodium 20 Mg Tablet) 20 mg PO DAILY [facility] Last Admin: 06/08/24 08:16 Dose: Not Given Documented By: MICHEL Non-Admin Reason: NPO Sodium Chloride (0.9 % Sodium Chloride Flush 3 Ml Syringe) 3 ml IVFLUSH QSHIFT [facility] Last Admin: 06/08/24 09:24 Dose: 3 ml Documented By: MICHEL Vitamin D (Cholecalciferol (Vitamin D3) 25 Mcg Tablet) 50 mcg PO DAILY [facility] Last Admin: 06/08/24 08:15 Dose: Not Given Documented By: MICHEL Non-Admin Reason: NPO Labs 06/08/24 06:33 06/08/24 06:33 Labs: Laboratory Results - last 24 hr 06/07/24 06/07/24 06/07/24 12:15 12:37 12:45 MCV 91.1 MCH 30.2 MCHC 33.1 RDW 13.4 Plt Count 261 MPV 9.6 Immature Gran % (Auto) 0.4 Neut % (Auto) 61.6 Lymph % (Auto) 28.2 Bradley % (Auto) 8.3 Eos % (Auto) 0.9 Baso % (Auto) 0.6 Lymph # (Auto) 2.2 Bradley # (Auto) 0.7 Eos # (Auto) 0.1 Baso # (Auto) 0.1 Abs Immat Gran (auto) 0.03 Absolute Neuts (auto) 4.8 Absolute Nucleated RBC 0.000 Nucleated RBC % (auto) 0.0 Hold Purple Top SEE NOTE PT 11.2 Whole Blood PT 10.9 L INR 1.0 Whole Blood INR 0.9 APTT 28.7 Anion Gap 10 L Estim Creat Clear Calc 58.7 Estimated GFR > 60 POC Glucose 113 Random Glucose 112 Lactic Acid Calcium 9.3 C-Reactive Protein Triglycerides 122 Cholesterol 160 LDL Cholesterol, Calc 72 HDL Cholesterol 64 Procalcitonin TSH 0.90 Urine Color Yellow Urine Appearance Turbid Urine pH 8.0 Ur Specific [place] 1.010 Urine Protein 30 (1+) H Urine Glucose (UA) Negative Urine Ketones Negative Urine Blood Negative Urine Nitrite Positive H Ur Leukocyte Esterase Negative Urine RBC 3-5 H Urine WBC 0-5 Ur Squamous Epith Cells >20 Other Crystals Present Urine Bacteria 4+ Hyaline Casts 0-2 Influenza Type A (PCR) Influenza Type B (PCR) RSV RNA Qual (PCR) SARS-CoV-2 RNA (RT-PCR) 06/07/24 06/07/24 06/07/24 12:56 14:10 14:47 MCV MCH MCHC RDW Plt Count MPV Immature Gran % (Auto) Neut % (Auto) Lymph % (Auto) [place] % (Auto) Eos % (Auto) Baso % (Auto) Lymph # (Auto) Bradley # (Auto) Eos # (Auto) Baso # (Auto) Abs Immat Gran (auto) Absolute Neuts (auto) Absolute Nucleated RBC Nucleated RBC % (auto) Hold Purple Top PT Whole Blood PT INR Whole Blood INR APTT Anion Gap Estim Creat Clear Calc Estimated GFR POC Glucose 103 Random Glucose Lactic Acid 1.6 Calcium C-Reactive Protein Triglycerides Cholesterol LDL Cholesterol, Calc HDL Cholesterol Procalcitonin TSH Urine Color Yellow Urine Appearance Turbid Urine pH 8.0 Ur Specific [place] >= 1.030 H Urine Protein Trace Urine Glucose (UA) Negative Urine Ketones Negative Urine Blood Negative Urine Nitrite Positive H Ur Leukocyte Esterase Negative Urine RBC 3-5 H Urine WBC 0-5 Ur Squamous Epith Cells 3-5 Other Crystals Urine Bacteria 4+ Hyaline Casts 0-2 Influenza Type A (PCR) Influenza Type B (PCR) RSV RNA Qual (PCR) SARS-CoV-2 RNA (RT-PCR) 06/07/24 06/07/24 06/08/24 15:54 18:10 06:33 MCV 90.8 MCH 30.2 MCHC 33.2 RDW 13.3 Plt Count 215 MPV 9.6 Immature Gran % (Auto) 0.5 H Neut % (Auto) 59.8 Lymph % (Auto) 28.5 Bradley % (Auto) 10.9 Eos % (Auto) 0.1 Baso % (Auto) 0.2 Lymph # (Auto) 2.6 Bradley # (Auto) 1.0 Eos # (Auto) 0.0 Baso # (Auto) 0.0 Abs Immat Gran (auto) 0.05 H Absolute Neuts (auto) 5.5 Absolute Nucleated RBC 0.000 Nucleated RBC % (auto) 0.0 Hold Purple Top PT Whole Blood PT INR Whole Blood INR APTT Anion Gap 11 L Estim Creat Clear Calc 61.7 Estimated GFR > 60 POC Glucose Random Glucose 84 Lactic Acid 1.7 Calcium 8.7 D C-Reactive Protein 0.34 Triglycerides Cholesterol LDL Cholesterol, Calc HDL Cholesterol Procalcitonin 0.21 TSH Urine Color Urine Appearance Urine pH Ur Specific [place] Urine Protein Urine Glucose (UA) Urine Ketones Urine Blood Urine Nitrite Ur Leukocyte Esterase Urine RBC Urine WBC Ur Squamous Epith Cells Other Crystals Urine Bacteria Hyaline Casts Influenza Type A (PCR) NEGATIVE Influenza Type B (PCR) NEGATIVE RSV RNA Qual (PCR) NEGATIVE SARS-CoV-2 RNA (RT-PCR) NEGATIVE Microbiology Microbiology Results: Microbiology 06/07/24 Unknown Urine Culture - Preliminary Urine Catheterized - Straight Catheter Culture in progress. 06/07/24 Unknown Urine Culture - Final Urine clean catch - Clean Catch Midstream Assessment and Plan (1) Recurrent UTI: Status: Acute Plan d2 for 88yo F with HTN, HLD, GERD, hx CVA, hx UTI with encephalopathy sent in for AMS; had witnessed generalized seizure in ED and septic from UTI sepsis due to UTI - continue levofloxacin [prior Enterobacter aerogenes] 06/07-, follow BCx + UCx new-onset sz - EEG, Neuro consulted; recommends LP to r/o meningoencephalitis. 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 Quality Stroke Does the patient have a stroke diagnosis?: No VTE Prior VTE?: No VTE Risk Level:: Medical - moderate - high VTE Device Contraindication: Treatment Not Indicated VTE Drug Contraindication: N/A - Med Ordered
--- NOTE | 2024-06-08 12:26 | MHC.SLORD ---
Speech Language Pathology Order Status: AREA MECHANIC attempted to see pt for clinical swallow evaluation 2x this morning. Pt away for EEG and not alert/awake enough for evaluation. RN to [place] AREA MECHANIC if/when pt is appropriate for eval later in day. Otherwise, pt to be seen by AREA MECHANIC tomorrow 06/09.
--- NOTE | 2024-06-08 13:32 | MHC.CM.PN ---
EMR REVIEWED, CM ATTEMPTED TO MEET W/PT HOWEVER PT SOUNDLY SLEEPING, CM ATTEMPTED TO MEET W/PT AGAIN HOWEVER PT OFF UNIT, PT'S DTR/HCP ELLEN AT BEDSIDE AND REPORTS PT LIVES W/HER, USES A CANE/WALKER FOR AMBULATION AND HAS GRAB/BARS ETC IN , [facility], PT'S DTR PROVIDES ANY ASSISTANCE PT NEEDS AND ELLEN REPORTS SHE WOULD LIKE NEW [facility] REFERRAL, CM WILL SEND [facility] REFERRAL HOWEVER PT DOES NOT HAVE PT AVAILABILITY UNTIL NEXT WEEK. ELLEN REPORTS PT'S GOAL FOR DC WOULD BE HOME W/SERVICES. PCP/HCP ON FILE VERIFIED.
--- NOTE | 2024-06-08 13:52 | MHC.SL.SWA ---
Risk of Aspiration Due to: Lethargy Neurological Condition Dysphasia Diet Status: UPGRADE from NPO Liquid Consistency and Strategies for Safe Swallow: Liquid Intake Recommendation: Thin Liquid Intake Strategies: Small Sips Solid Food Consistency: Dietary Recommendations: Chopped/Advanced (NDD3) Oral Medication Intake: Crushed with Puree Please contact the pharmacy regarding appropriate crushable or liquid drug formulations that are available whenever modified delivery is recommended. Compensatory Strategies and Precautions to be Taken for Safe Swallow: Sitting Upright (90 deg) Small Bites and Sips Alternate Liquids/Solids Oral Check Supervision While Eating and Drinking for Safe Swallow: Total Supervision (1:1) Foods to Avoid: Swallowing Recommended Treatments: Recommendation for Speech: Outpatient Speech Therapy Inpatient Speech Therapy Comment: Pt seen for swallow eval. Presented w/ facial asymmetry; eye and mouth droop to right side. Unable to follow commands of oral motor exam. Recommend UPGRADE to CHOPPED/ADVANCED solids (NDD3) and THIN liquids w/ pills crushed. Requires FULL SUPERVISION d/t cognitive status. Pt benefits reminders to chew/swallow food and intermittent verbal guidance/redirection to get PO to mouth appropriately. Pt's daughter expressed concern w/ pt's speech; MOTORBOAT MECHANIC to monitor pt's speech. Recommend MOTORBOAT MECHANIC continue to follow during hospitalization for dysphagia and speech. Recommend MOTORBOAT MECHANIC re-attempt oral motor exam when able to follow commands to better assess articulators. Manager Skilled Clinican/Clinical Fellow: No Supervisory Statement: I have reviewed and agree with the student/clinical fellow's documentation: N/A Speech Language Pathologist: Yessenia Robles M.A., [facility]-MOTORBOAT MECHANIC
[2024-06-08] MEDS: levETIRAcetam in NaCl (iso-os) 1,000 MG/100 ML PIGGYBACK 400 MG IV (14:37)
[2024-06-08] MEDS: levoFLOXacin/D5W 750 MG/150 ML PIGGYBACK 100 MG IV (17:52)
[2024-06-09] MEDS: metroNIDAZOLE/NS 500 MG/100 ML PIGGYBACK 100 MG IV ×2 (01:10→10:26)
[2024-06-09] MEDS: levETIRAcetam in NaCl (iso-os) 1,000 MG/100 ML PIGGYBACK 400 MG IV ×2 (02:44→15:54)
[2024-06-09 03:17] VITALS: BP 128/60; PULSE 88; RESP 18; TEMP 37.1; O2SAT 92
[2024-06-09] MEDS: Omeprazole 20 MG CAPSULE.DR PO (05:24)
[2024-06-09 07:50] LABS: Hematocrit 34.6 % (37.0-47.0); Hemoglobin 11.4 g/dl (12.0-16.0); Mean Corpuscular HGB Conc 32.9 g/dl (31.0-35.0); Mean Corpuscular Volume 91.1 fL (80.0-98.0); Mean Platelet Volume 9.7 fL (9.4-12.3); Platelet Count 212 X10*3/uL (160-400); Red Cell Distribution Width 13.5 % (11.0-16.0)
[2024-06-09 07:55] LABS: Anion Gap 9 (12-20); Blood Urea Nitrogen 13 mg/dL (9-16); Calcium 8.7 mg/dL (8.4-10.2); Carbon Dioxide 24 mmol/L (22-29); Chloride 113 mmol/L (96-108); Creatinine Clr Calc Pharmacy 61.7; Estimated Glomerular Filt Rate > 60; Glucose Random 84 mg/dL (60-115); Potassium 3.7 mmol/L (3.3-5.1); Sodium 142 mmol/L (135-145)
[2024-06-09 08:00] VITALS: BP 127/60; PULSE 84; RESP 18; TEMP 36.6; O2SAT 94
[2024-06-09 08:33] LABS: Folate 10.3 ng/mL (> or = 4.0); Vitamin B12 352 pg/mL (200-900)
[2024-06-09 10:26] VITALS: BP 127/60
[2024-06-09] MEDS: Losartan Potassium 25 MG TABLET PO (10:26)
[2024-06-09] MEDS: 0.9 % Sodium Chloride Flush 3 ML SYRINGE IVFLUSH ×2 (10:26→15:54)
[2024-06-09] MEDS: Pravastatin Sodium 20 MG TABLET PO (10:27)
[2024-06-09] MEDS: Aspirin Enteric Coated 81 MG TABLET.DR PO (10:27)
[2024-06-09] MEDS: Clotrimazole 1 % Cream 15 GM TUBE 1 APPL TOPICAL (10:27)
[2024-06-09] MEDS: Cholecalciferol (Vitamin D3) 25 MCG TABLET 50 MCG PO (10:27)
--- NOTE | 2024-06-09 11:37 | HO.PM.IMPN ---
Subjective Subjective Date of Service: 06/09/24 Interval History: much more awake though confused fever has resolved no further seizure activity Review of Systems Review of Systems: Yes all other systems are reviewed and are negative Physical Exam Vital Signs: Vital Signs: Last Vital Signs Temp 97.9 F 06/09/24 08:00 Pulse 84 06/09/24 08:00 Resp 18 06/09/24 08:00 BP 127/60 06/09/24 10:26 Pulse Ox 94 06/09/24 08:00 O2 Del Method Room Air 06/09/24 08:00 BMI result Body Mass Index 31.6 Gen: awake, alert, NAD HEENT: sclera anicteric, moist mucus membranes Neck: supple Lungs: clear to auscultation bilaterally Heart: regular rate and rhythm, no murmurs Abd: soft, non-tender, non-distended Ext: no edema Skin: warm/well-perfused Neuro: awake, disoriented, moves all extremities Psych: impaired insight Objective Data Active Medications Acetaminophen (Acetaminophen 325 Mg Tablet) 650 mg PO Q6H PRN PRN Reason: Pain, Mild 1-3,fever,headache Albuterol Sulfate (Albuterol Sulfate 90 Mcg 8 Gm Inhaler) 1 puff INHALE QID PRN PRN Reason: shortness of breath or wheezing Aspirin (Aspirin Enteric Coated 81 Mg Tablet.) 81 mg PO DAILY [facility] Last Admin: 06/09/24 10:27 Dose: 81 mg Documented By: NEEL Calcium Carbonate (Calcium Carbonate 750 Mg Tab.Chew) 750 mg PO Q4H PRN PRN Reason: Heartburn Clotrimazole (Clotrimazole 1 % Cream 15 Gm Tube) 1 appl TOPICAL DAILY [facility] Last Admin: 06/09/24 10:27 Dose: 1 appl Documented By: NEEL Cyanocobalamin (Cyanocobalamin (Vitamin B-12) 1,000 Mcg Tablet) 1,000 mcg PO MO [facility] Enoxaparin Sodium (Enoxaparin Sodium 40 Mg/0.4 Ml Syringe) 40 mg SUBCUT Q24H [facility] Last Admin: 06/07/24 18:01 Dose: 40 mg Documented By: CORA Fluticasone Propionate (Fluticasone Propionate Nasal 16 Gm [place]) 1 spray NOSTRIL-B DAILY PRN PRN Reason: Allergy Symptoms Levofloxacin (Levaquin) 750 mg in 150 mls @ 100 mls/hr IV Q24H [facility] Last Infusion: 06/08/24 20:22 Dose: Infused Documented By: CHALINO Metronidazole (Flagyl) 500 mg in 100 mls @ 100 mls/hr IV Q8H [facility] Last Infusion: 06/09/24 11:30 Dose: Infused Documented By: NEEL Levetiracetam (Keppra) 1,000 mg in 100 mls @ 400 mls/hr IV Q12H [facility] Last Infusion: 06/09/24 03:00 Dose: Infused Documented By: CHALINO Acyclovir Sodium 616 mg/ (Sodium Chloride) 262.32 mls @ 262.32 mls/hr IV Q8H [facility] Last Infusion: 06/09/24 11:30 Dose: Infused Documented By: NEEL Losartan Potassium (Losartan Potassium 25 Mg Tablet) 25 mg PO DAILY [facility]; Protocol Last Admin: 06/09/24 10:26 Dose: 25 mg Documented By: NEEL Magnesium Hydroxide (Milk Of Magnesia 30 Ml Oral.Susp) 30 ml PO DAILY PRN PRN Reason: Constipation Melatonin (Melatonin 3 Mg Tablet) 6 mg PO BEDTIME PRN PRN Reason: Insomnia Mirtazapine (Mirtazapine 7.5 Mg Tablet) 7.5 mg PO BEDTIME PRN PRN Reason: Sleep Nystatin (Nystatin Powder 15 Gm Bottle) 1 appl TOPICAL DAILY PRN; Protocol PRN Reason: Fungal Infection Omeprazole (Omeprazole 20 Mg Capsule.Dr) 20 mg PO DAILY@0630 [facility] Last Admin: 06/09/24 05:24 Dose: 20 mg Documented By: CHALINO Pravastatin Sodium (Pravastatin Sodium 20 Mg Tablet) 20 mg PO DAILY [facility] Last Admin: 06/09/24 10:27 Dose: 20 mg Documented By: NEEL Sodium Chloride (0.9 % Sodium Chloride Flush 3 Ml Syringe) 3 ml IVFLUSH QSHIFT [facility] Last Admin: 06/09/24 10:26 Dose: 3 ml Documented By: NEEL Vitamin D (Cholecalciferol (Vitamin D3) 25 Mcg Tablet) 50 mcg PO DAILY [facility] Last Admin: 06/09/24 10:27 Dose: 50 mcg Documented By: NEEL Labs 06/09/24 06:56 06/09/24 06:56 Labs: Laboratory Results - last 24 hr 06/09/24 06:56 MCV 91.1 MCH 30.0 MCHC 32.9 RDW 13.5 Plt Count 212 MPV 9.7 Absolute Nucleated RBC 0.000 Nucleated RBC % (auto) 0.0 Anion Gap 9 L Estim Creat Clear Calc 61.7 Estimated GFR > 60 Random Glucose 84 Calcium 8.7 Vitamin B12 352 Folate 10.3 Microbiology Microbiology Results: Microbiology 06/07/24 14:01 Blood Culture - Preliminary Blood - Venous No growth after 24 hours. 06/07/24 12:56 Blood Culture - Preliminary Blood - Venous No growth after 24 hours. 06/07/24 Unknown Urine Culture - Preliminary Urine Catheterized - Straight Catheter Culture in progress. 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 Per Neurology LP recommended but family declines. Treat presumptively with acyclovir IV 06/08-06/22; will request midline catheter. Also levetiracetam 1g bid. acute encephalopathy due to acute infection - treat infection, monitor mental status; improving possible aspiration - DESK MAKER: NDD3 solids; thin liquids - d/c metronidazole; doubt pneumonia multinodular goiter - incidental; outpt f/u hx CVA - ASA, statin HTN - losartan GERD - PPI VTE ppx - enoxaparin dispo - will need STR for IV acyclovir administration In my clinical judgment, the patient requires continued inpatient hospitalization for the following reasons: IV ABX + antiviral Total time managing care of this patient today: 45 minutes. Quality Stroke Does the patient have a stroke diagnosis?: No VTE Prior VTE?: No VTE Risk Level:: Medical - moderate - high VTE Device Contraindication: Treatment Not Indicated VTE Drug Contraindication: N/A - Med Ordered
[2024-06-09 11:52] VITALS: BP 113/56; PULSE 82; RESP 18; TEMP 36.6; O2SAT 94
--- NOTE | 2024-06-09 12:56 | MHC.SLORD ---
Speech Language Pathology Order Status: Pt resting, family at bedside meeting with MD. EVIDENCE TECHNICIAN continues to follow, POC reviewed.
--- NOTE | 2024-06-09 13:26 | MHC.CM.PN ---
EMR reviewed and per MD rounds, pt is not medically cleared for discharge due to management of encephalopathy and presumptive HSV encephalitis. PT eval pending. Pt will likely need STR for IV antiviral, midline placement pending. This CM met with pts daughter present at bedside to discuss STR options, local list of [place] SNF's given to pts daughter to review.
[2024-06-09 15:19] VITALS: BP 136/65; PULSE 78; RESP 18; TEMP 36.9; O2SAT 95
--- NOTE | 2024-06-09 17:04 | HO.MIDLINE ---
Midline Insertion MIDLINE INSERTION Diagnosis: UTI/Sepsis Indication: 2wks Acyclovir Pertinent Labs: Reviewed Technique: Using sterile technique including cap and mask, glove and drape, the right arm was prepped and draped in the usual sterile fashion of full barrier technique with CHG. Using ultrasound guidance, right basilic vein access was obtained . [id number] single lumen non PASV PowerMidline trimmed to 14cm was positioned. The procedure was performed in rm 272. Ultrasound was used to document vein patency and for needle entry. A formal ultrasound picture was recorded. Vascular Quilting Machine Operator has released the line for use and it is currently dressed with a StatLock, Tegaderm, and CHG disc. Verification has been performed for blood return and line patency. Arm Circumference: 33cm Equipment: BARD POWERMidline Catheter Catheter Type: 4FR x 20cm single lumen non PASV catheter Lot #: [id number]
[2024-06-09] MEDS: levoFLOXacin/D5W 750 MG/150 ML PIGGYBACK 100 MG IV (18:36)
[2024-06-09 19:56] VITALS: BP 138/68; PULSE 87; RESP 20; TEMP 36.5; O2SAT 96
[2024-06-10] VITALS (7 sets, daily range): BP systolic 118–164; BP diastolic 60–76; PULSE 75–95; RESP 16–20; TEMP 36.2–37.2; O2SAT 92–97
[2024-06-10] MEDS: 0.9 % Sodium Chloride Flush 3 ML SYRINGE IVFLUSH ×4 (00:10→19:59)
[2024-06-10] MEDS: Heparin Sodium,Porcine Flush 50 UNITS, 0.9 % Sodium Chloride Flush 5 ML IVFLUSH ×2 (00:11→17:39)
[2024-06-10] MEDS: levETIRAcetam in NaCl (iso-os) 1,000 MG/100 ML PIGGYBACK 400 MG IV (03:28)
[2024-06-10] MEDS: Omeprazole 20 MG CAPSULE.DR PO (05:55)
[2024-06-10 08:26] LABS: Alanine Aminotransferase 8 U/L (0-31); Albumin Level 3.1 g/dL (3.5-5.0); Alkaline Phosphatase 54 U/L (39-117); Anion Gap 9 (12-20); Aspartate Amino Transferase 28 U/L (5-31); Bilirubin Total 0.7 mg/dL (0.0-1.0); Blood Urea Nitrogen 11 mg/dL (9-16); Calcium 8.7 mg/dL (8.4-10.2); Carbon Dioxide 23 mmol/L (22-29); Chloride 113 mmol/L (96-108); Creatinine Clr Calc Pharmacy 62.6; Estimated Glomerular Filt Rate > 60; Glucose Random 99 mg/dL (60-115); Potassium 3.5 mmol/L (3.3-5.1); Sodium 141 mmol/L (135-145); Total Protein 5.6 g/dL (6.5-8.0)
[2024-06-10] MEDS: Cholecalciferol (Vitamin D3) 25 MCG TABLET 50 MCG PO (09:25)
[2024-06-10] MEDS: Aspirin Enteric Coated 81 MG TABLET.DR PO (09:26)
[2024-06-10] MEDS: Pravastatin Sodium 20 MG TABLET PO (09:26)
[2024-06-10] MEDS: Losartan Potassium 25 MG TABLET PO (09:26)
[2024-06-10] MEDS: levETIRAcetam 1,000 MG TABLET 1000 MG PO ×2 (09:28→19:58)
[2024-06-10] MEDS: Clotrimazole 1 % Cream 15 GM TUBE 1 APPL TOPICAL (09:28)
--- NOTE | 2024-06-10 09:36 | MHC.SL.SWA ---
Speech Pathologist Impression: Risk of Aspiration Due to: Lethargy Neurological Condition Dysphasia Diet Status: Recommend DOWNGRADE diet to Ground Mechanical (NDD2) for ease of oral management, continue with THIN lquids, pills crushed in puree. Due to level of confusion patient requires direct supervision with assistance, including orienting to meal, opening all items, initiating meal and assisting as needed. Liquid Consistency and Strategies for Safe Swallow: Liquid Intake Recommendation: Thin Liquid Intake Strategies: Small Sips Solid Food Consistency: Dietary Recommendations: Grnd/Mech Altered (NDD2) Additional Modifications to Solid Foods: Due to level of confusion patient requires direct supervision with assistance, including orienting to meal, opening all items, initiating meal and assisting as needed. Alternate liquids and solids regularly, oral check to assure food is not present or pocketed after swallow. Oral Medication Intake: Crushed with Puree Please contact the pharmacy regarding appropriate crushable or liquid drug formulations that are available whenever modified delivery is recommended. Compensatory Strategies and Precautions to be Taken for Safe Swallow: Sitting Upright (90 deg) Liquids from Cup Liquids from Straw Small Bites and Sips Alternate Liquids/Solids Oral Check Supervision While Eating and Drinking for Safe Swallow: Total Supervision (1:1) Foods to Avoid: Difficult to chew solids, too large pieces of food. Swallowing Recommended Treatments: Recommendation for Speech: Outpatient Speech Therapy Inpatient Speech Therapy Comment: Patient seen this morning at breakfast for tolerance of diet, general assessment. Patient was awake and alert, in a dark room with food on table beside bed. Patient stated help!, MEN'S GARMENT FITTER clarified that she wanted to be able to get to her food. Patient was seated as upright as her bed allowed and had pillows to further elevated her in the bed; however, throughout patient was mildly agitated about her positioning, wanting to sit up more, lay back more, have table close to her, but then pushing the table away. Throughout patient was verbal, but very confused, somewhat perseverative in what she was speaking to. Patient further presents as [place]. Patient had upper dentures in, no lower dentures present. Speech was dysarthric: hyponasal with some mild imprecise articulation. Tray and food was prepared for eating, and MEN'S GARMENT FITTER oriented patient to meal and initiated providing some bites. On cut up italian toast from tray, patient noted to use tongue to repeatedly pump and mash the bolus, w/o initiating rotary chew. Bolus in pieces persisted in oral cavity for prolonged period despite cues to swallow, patient offered sip of juice which appeared to clear the bolus. On straw sip, patient noted to occasionally hold liquid orally before swallowing, at other times swallow with good timing. On multiple observations of thin liquid by straw, patient presented with no clinical signs of aspiration. On all presentation of solids, patient primarily manipulated and mashed bolus with yamile v. chewing, held bolus orally for prolonged period and generally required a liquid wash to clear food from mouth (cut up italian toast, scrambled eggs, cut bananas observed). Recommend DOWNGRADE diet to Ground Mechanical (NDD2) for ease of oral management, continue with THIN lquids, pills crushed in puree. Due to level of confusion patient requires direct supervision with assistance, including orienting to meal, opening all items, initiating meal and assisting as needed. RN advised in person, MEN'S GARMENT FITTER will continue to follow. Frequency/Duration: Date Range for Service Req: Timeline to reassess: Interface Control Officer Clinican/Clinical Fellow: No Supervisory Statement: I have reviewed and agree with the student/clinical fellow's documentation: N/A Speech Language Pathologist: Cady Villar M.A., [facility]-MEN'S GARMENT FITTER
--- NOTE | 2024-06-10 13:00 | HO.PM.IMPN ---
Subjective Subjective Date of Service: 06/10/24 Interval History: no fever confused but in NAD Review of Systems Review of Systems: Yes Unobtainable due to mental status Physical Exam Vital Signs: Vital Signs: Last Vital Signs Temp 97.2 F 06/10/24 11:48 Pulse 81 06/10/24 11:48 Resp 20 06/10/24 11:48 BP 118/60 06/10/24 11:48 Pulse Ox 94 06/10/24 11:48 O2 Del Method Room Air 06/10/24 11:48 BMI result Body Mass Index 31.6 Gen: awake, alert, NAD HEENT: sclera anicteric, moist mucus membranes Neck: supple Lungs: clear to auscultation bilaterally Heart: regular rate and rhythm, no murmurs Abd: soft, non-tender, non-distended Ext: no edema, RUE midline Skin: warm/well-perfused Neuro: awake, disoriented, moves all extremities Psych: impaired insight Objective Data Active Medications Acetaminophen (Acetaminophen 325 Mg Tablet) 650 mg PO Q6H PRN PRN Reason: Pain, Mild 1-3,fever,headache Albuterol Sulfate (Albuterol Sulfate 90 Mcg 8 Gm Inhaler) 1 puff INHALE QID PRN PRN Reason: shortness of breath or wheezing Aspirin (Aspirin Enteric Coated 81 Mg Tablet.Dr) 81 mg PO DAILY [facility] Last Admin: 06/10/24 09:26 Dose: 81 mg Documented By: LEROY Calcium Carbonate (Calcium Carbonate 750 Mg Tab.Chew) 750 mg PO Q4H PRN PRN Reason: Heartburn Clotrimazole (Clotrimazole 1 % Cream 15 Gm Tube) 1 appl TOPICAL DAILY [facility] Last Admin: 06/10/24 09:28 Dose: 1 appl Documented By: LEROY Heparin Sodium (Porcine) 50 (units/ Sodium Chloride 5 ml) 0 units IVFLUSH QSHIFT [facility] Last Admin: 06/10/24 09:33 Dose: Not Given Documented By: LEROY Non-Admin Reason: IV Running Cyanocobalamin (Cyanocobalamin (Vitamin B-12) 1,000 Mcg Tablet) 1,000 mcg PO MO [facility] Enoxaparin Sodium (Enoxaparin Sodium 40 Mg/0.4 Ml Syringe) 40 mg SUBCUT Q24H [facility] Last Admin: 06/07/24 18:01 Dose: 40 mg Documented By: CORA Fluticasone Propionate (Fluticasone Propionate Nasal 16 Gm [place]) 1 spray NOSTRIL-B DAILY PRN PRN Reason: Allergy Symptoms Acyclovir Sodium 616 mg/ (Sodium Chloride) 262.32 mls @ 262.32 mls/hr IV Q8H [facility] Last Infusion: 06/10/24 09:35 Dose: Infused Documented By: LEROY Levetiracetam (Levetiracetam 1,000 Mg Tablet) 1,000 mg PO BID [facility] Last Admin: 06/10/24 09:28 Dose: 1,000 mg Documented By: LEROY Levofloxacin (Levofloxacin 750 Mg Tablet) 750 mg PO Q24H [facility] Losartan Potassium (Losartan Potassium 25 Mg Tablet) 25 mg PO DAILY [facility]; Protocol Last Admin: 06/10/24 09:26 Dose: 25 mg Documented By: LEROY Magnesium Hydroxide (Milk Of Magnesia 30 Ml Oral.Susp) 30 ml PO DAILY PRN PRN Reason: Constipation Melatonin (Melatonin 3 Mg Tablet) 6 mg PO BEDTIME PRN PRN Reason: Insomnia Mirtazapine (Mirtazapine 7.5 Mg Tablet) 7.5 mg PO BEDTIME PRN PRN Reason: Sleep Nystatin (Nystatin Powder 15 Gm Bottle) 1 appl TOPICAL DAILY PRN; Protocol PRN Reason: Fungal Infection Omeprazole (Omeprazole 20 Mg Capsule.Dr) 20 mg PO DAILY@0630 [facility] Last Admin: 06/10/24 05:55 Dose: 20 mg Documented By: CHALINO Pravastatin Sodium (Pravastatin Sodium 20 Mg Tablet) 20 mg PO DAILY [facility] Last Admin: 06/10/24 09:26 Dose: 20 mg Documented By: LEROY Sodium Chloride (0.9 % Sodium Chloride Flush 3 Ml Syringe) 3 ml IVFLUSH QSHIFT [facility] Last Admin: 06/10/24 07:53 Dose: 3 ml Documented By: LEROY Vitamin D (Cholecalciferol (Vitamin D3) 25 Mcg Tablet) 50 mcg PO DAILY [facility] Last Admin: 06/10/24 09:25 Dose: 50 mcg Documented By: LEROY Labs 06/09/24 06:56 06/10/24 07:32 Labs: Laboratory Results - last 24 hr 06/10/24 07:32 Hold Purple Top SEE NOTE Anion Gap 9 L Estim Creat Clear Calc 62.6 Estimated GFR > 60 Random Glucose 99 Calcium 8.7 Total Bilirubin 0.7 AST 28 ALT 8 Alkaline Phosphatase 54 Total Protein 5.6 L Albumin 3.1 L Microbiology Microbiology Results: Microbiology 06/07/24 14:01 Blood Culture - Preliminary Blood - Venous No growth after 48 hours. 06/07/24 12:56 Blood Culture - Preliminary Blood - Venous No growth after 48 hours. 06/07/24 Unknown Urine Culture - Preliminary Urine Catheterized - Straight Catheter Gram positive cocci Assessment and Plan (1) Recurrent UTI: Status: Acute Plan d4 for 88yo F with HTN, HLD, GERD, hx CVA, hx UTI with encephalopathy sent in for AMS; had witnessed generalized seizure in ED and septic from UTI sepsis due to UTI - continue levofloxacin [prior Enterobacter aerogenes] 06/07-, BCx negative, UCx growing GPCs pending speciation + susceptibilities presumptive HSV encephalitis - new-onset seizure and EEG read as left temporal sharp waves. Per Neurology LP recommended but family declined. Treat presumptively with acyclovir IV 06/08-06/22; midline placed Also levetiracetam 1g bid; change IV to PO acute encephalopathy due to acute infection - treat infections as above, monitor mental status; improving possible aspiration - PRODUCTION LEADER: downgrade to NDD2 solids; thin liquids - d/c metronidazole; doubt pneumonia multinodular goiter - incidental; outpt f/u hx CVA - ASA, statin HTN - losartan GERD - PPI VTE ppx - enoxaparin dispo - STR recommended but daughter declines; however, home would be difficult as the pt requires q8h acyclovir administration and cannot shuttlecock feather trimmer my clinical judgment, the patient requires continued inpatient hospitalization for the following reasons: IV ABX + antiviral Total time managing care of this patient today: 40 minutes. Quality Stroke Does the patient have a stroke diagnosis?: No VTE Prior VTE?: No VTE Risk Level:: Medical - moderate - high VTE Device Contraindication: Treatment Not Indicated VTE Drug Contraindication: N/A - Med Ordered
--- NOTE | 2024-06-10 15:47 | MHC.CM.PN ---
EMR REVIEWED, CM MET W/PT'S DTR HCP ELLEN AT BEDSIDE, ELLEN INSISTING SHE WAS TOLD HOME INF[facility]ION WOULD COME TO HOUSE ONCE A DAY TO GIVE ONE DOSE OF IV MED, VNA WOULD COME TO HOME FOR 2ND DOSE AND HER FRIEND WHO IS A NURSE WOULD COME TO THE HOUSE FOR THE LAST DOSE. ELLEN NOW AWARE THAT HOME INFUSION DOES TEACH IN HOSPITAL AND THEN DELIVERS THE IV MEDICATION AND SUPPLIES TO PT'S HOME AND THAT THE VNA WILL ONCLY COME ONE OR TWO TIMES PER WEEK AND THAT PT/FAMILY ARE RESPONSIBLE TO ADMINISTER IV MEDICATION, PER HOSPITALIST PT WILL NEED IV ACYCLOVIR TID FOR 10-14 DAYS. ELLEN DOES NOT WANT CM TO PLACE REFERRALS AT THIS TIME HOWEVER IF SHE DOES AGREE TO STR SHE WOULD WANT [facility]. CM WILL CONT TO FOLLOW DC NEEDS.
[2024-06-10] MEDS: levoFLOXacin 750 MG TABLET PO (16:23)
--- NOTE | 2024-06-10 19:21 | PC.NURSE ---
Assumed care at 1500. Patient alert, confused, daughter at beside. Speech unclear, rambling. Reports being uncomfortable in the bed needing frequent repositioning, 2 assist oob to the recliner for dinner. Poor PO intake, patient reporting no appetite. Patient on aspiration precautions, asked not to have pills crushed as she does not like the taste of it in the puree, able to swallow one at a time with sips of water in sitting position. Patient c/o discomfort in bilater arms, most in upper right arm where midline placed, site assessed no redness or swelling noted. Patient transferred to S3 room 361, report to Savanah RN. Patient's daughter informed. Patient's daughter asked to be called tomorrow before patient is taken for the LP, request communicated to Savanah.
[2024-06-11] MEDS: Heparin Sodium,Porcine Flush 50 UNITS, 0.9 % Sodium Chloride Flush 5 ML IVFLUSH ×3 (01:30→23:52)
[2024-06-11 03:09] VITALS: BP 154/71; PULSE 104; RESP 18; TEMP 37.4; O2SAT 96
[2024-06-11] MEDS: Omeprazole 20 MG CAPSULE.DR PO (05:36)
[2024-06-11 06:58] VITALS: BP 158/75; PULSE 97; RESP 16; TEMP 37; O2SAT 94
[2024-06-11] MEDS: 0.9 % Sodium Chloride Flush 3 ML SYRINGE IVFLUSH ×2 (09:01→23:53)
[2024-06-11] MEDS: Aspirin Enteric Coated 81 MG TABLET.DR PO (09:02)
[2024-06-11] MEDS: levETIRAcetam 1,000 MG TABLET 1000 MG PO ×2 (09:02→20:31)
[2024-06-11] MEDS: Losartan Potassium 25 MG TABLET PO (09:02)
[2024-06-11] MEDS: Pravastatin Sodium 20 MG TABLET PO (09:02)
[2024-06-11] MEDS: Cholecalciferol (Vitamin D3) 25 MCG TABLET 50 MCG PO (09:02)
[2024-06-11] MEDS: Clotrimazole 1 % Cream 15 GM TUBE 1 APPL TOPICAL (09:03)
[2024-06-11] MEDS: Mirtazapine 7.5 MG TABLET PO (11:23)
--- NOTE | 2024-06-11 11:26 | PC.NURSE ---
7.5 mg prn mertazapine given per Dr. Rodarte
[2024-06-11 11:28] VITALS: BP 135/58; PULSE 120; RESP 20; TEMP 36.6; O2SAT 95
--- NOTE | 2024-06-11 11:46 | PC.NURSE ---
Pt very aggitated, family walking pt in room to quiet her - the family is non-compliant when we ask them to wait for staff to ambulate the patient.
--- NOTE | 2024-06-11 14:07 | MHC.CM.PN ---
EMR REVIEWED AND PER MD ROUNDS, PT IS NOT MEDICALLY CLEARED FOR DC (PT WILL HAVE LP) CM ATTEMPTED TO SPEAK WITH DAUGHTER REGARDING DC PLAN HOWEVER SHE IS NOT SURE IF SHE WILL WANT PT TO GO HOME WITH SERVICES OR SNF. REFERRAL SENT TO [facility] (DAUGHTER'S CHOICE) WHO IS UNABLE TO ACCEPT DUE TO NO AVAILABILITY. REFERRAL TO [facility] SHOULD HOME SERVICES BE NEEDED. CM WILL FIND OUT WHAT PREFERENCE PT'S DAUGHTER MAY HAVE FOR VNA AND REFERRAL WILL BE PLACED. CM WILL CONTINUE TO FOLLOW
--- NOTE | 2024-06-11 14:10 | P.PNIM_ITS ---
Subjective Subjective Date of Service: 06/11/24 Interval History: Slightly more confused today per staff. Review of Systems Unable to obtain Physical Exam 2 Vital Signs: Vital Signs: Last Vital Signs Temp 97.8 F 06/11/24 11:28 Pulse 120 H 06/11/24 11:28 Resp 20 06/11/24 11:28 BP 135/58 L 06/11/24 11:28 Pulse Ox 95 06/11/24 11:28 O2 Del Method Room Air 06/11/24 11:28 BMI result Body Mass Index 31.6 Const: Other: Awake confused Resp: Other: Clear to auscultation bilaterally no rales rhonchi or wheezes Cardio: Other: No S4; positive S1-S2; no S3 murmurs rubs or gallops GI: Other: Soft nontender nondistended normoactive bowel sounds Extrem: Other: No edema bilaterally Objective Data Active Medications Acetaminophen (Acetaminophen 325 Mg Tablet) 650 mg PO Q6H PRN PRN Reason: Pain, Mild 1-3,fever,headache Albuterol Sulfate (Albuterol Sulfate 90 Mcg 8 Gm Inhaler) 1 puff INHALE QID PRN PRN Reason: shortness of breath or wheezing Aspirin (Aspirin Enteric Coated 81 Mg Tablet.Dr) 81 mg PO DAILY [facility] Last Admin: 06/11/24 09:02 Dose: 81 mg Documented By: WARD Calcium Carbonate (Calcium Carbonate 750 Mg Tab.Chew) 750 mg PO Q4H PRN PRN Reason: Heartburn Clotrimazole (Clotrimazole 1 % Cream 15 Gm Tube) 1 appl TOPICAL DAILY [facility] Last Admin: 06/11/24 09:03 Dose: 1 appl Documented By: WARD Heparin Sodium (Porcine) 50 (units/ Sodium Chloride 5 ml) 0 units IVFLUSH QSHIFT [facility] Last Admin: 06/11/24 11:06 Dose: 50 unit Documented By: WARD Comments: Delayed d/t acyclovir had to go in first Cyanocobalamin (Cyanocobalamin (Vitamin B-12) 1,000 Mcg Tablet) 1,000 mcg PO MO [facility] Enoxaparin Sodium (Enoxaparin Sodium 40 Mg/0.4 Ml Syringe) 40 mg SUBCUT Q24H [facility] Last Admin: 06/07/24 18:01 Dose: 40 mg Documented By: HO.GENTILJ Fluticasone Propionate (Fluticasone Propionate Nasal 16 Gm [place]) 1 spray NOSTRIL-B DAILY PRN PRN Reason: Allergy Symptoms Acyclovir Sodium 616 mg/ (Sodium Chloride) 262.32 mls @ 262.32 mls/hr IV Q8H [facility] Last Infusion: 06/11/24 11:12 Dose: Infused Documented By: WARD Levetiracetam (Levetiracetam 1,000 Mg Tablet) 1,000 mg PO BID [facility] Last Admin: 06/11/24 09:02 Dose: 1,000 mg Documented By: WARD Levofloxacin (Levofloxacin 750 Mg Tablet) 750 mg PO Q24H [facility] Last Admin: 06/10/24 16:23 Dose: 750 mg Documented By: DOBROB Losartan Potassium (Losartan Potassium 25 Mg Tablet) 25 mg PO DAILY [facility]; Protocol Last Admin: 06/11/24 09:02 Dose: 25 mg Documented By: WARD Magnesium Hydroxide (Milk Of Magnesia 30 Ml Oral.Susp) 30 ml PO DAILY PRN PRN Reason: Constipation Melatonin (Melatonin 3 Mg Tablet) 6 mg PO BEDTIME PRN PRN Reason: Insomnia Mirtazapine (Mirtazapine 7.5 Mg Tablet) 7.5 mg PO BEDTIME PRN PRN Reason: Sleep Last Admin: 06/11/24 11:23 Dose: 7.5 mg Documented By: WARD Nystatin (Nystatin Powder 15 Gm Bottle) 1 appl TOPICAL DAILY PRN; Protocol PRN Reason: Fungal Infection Omeprazole (Omeprazole 20 Mg Capsule.Dr) 20 mg PO DAILY@0630 [facility] Last Admin: 06/11/24 05:36 Dose: 20 mg Documented By: ALICIA Pravastatin Sodium (Pravastatin Sodium 20 Mg Tablet) 20 mg PO DAILY [facility] Last Admin: 06/11/24 09:02 Dose: 20 mg Documented By: WARD Sodium Chloride (0.9 % Sodium Chloride Flush 3 Ml Syringe) 3 ml IVFLUSH QSHIFT [facility] Last Admin: 06/11/24 09:01 Dose: 3 ml Documented By: WARD Vitamin D (Cholecalciferol (Vitamin D3) 25 Mcg Tablet) 50 mcg PO DAILY [facility] Last Admin: 06/11/24 09:02 Dose: 50 mcg Documented By: WARD Labs 06/09/24 06:56 06/10/24 07:32 Microbiology Microbiology Results: Microbiology 06/07/24 Unknown Urine Culture - Preliminary Urine Catheterized - Straight Catheter Gram positive cocci Assessment and Plan (1) Urinary tract infection: Status: Acute (2) Encephalopathy: Status: Acute (3) Hypertension: Status: Acute Plan 88yo F with HTN, HLD, GERD, hx CVA, hx UTI with encephalopathy sent in for AMS; had witnessed generalized seizure in ED and septic from UTI 1.Sepsis due to UTI (preliminary Gram-positive cocci).. 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
[2024-06-11 15:41] LABS: CSF Appearance Clear, Colorless; CSF Tube # 2
[2024-06-11 16:00] VITALS: BP 130/59; PULSE 97; RESP 16; TEMP 36.5; O2SAT 95
[2024-06-11 16:07] LABS: Glucose CSF 66 mg/dL; Total Protein CSF 33.6 mg/dL (15-45)
[2024-06-11 17:13] LABS: Cryptococcus neoformans/gattii Not Detected (Not Detect.); Enterovirus Not Detected (Not Detect.); Escherichia coli K1 Not Detected (Not Detect.); Haemophilus influenzae Not Detected (Not Detect.); Herpes simplex virus 1 Not Detected (Not Detect.); Herpes simplex virus 2 Not Detected (Not Detect.); Human herpesvirus 6 Not Detected (Not Detect.); Human parechovirus Not Detected (Not Detect.); Listeria monocytogenes Not Detected (Not Detect.); Neisseria meningitidis Not Detected (Not Detect.); Streptococcus agalactiae Not Detected (Not Detect.); Streptococcus pneumoniae Not Detected (Not Detect.); Varicella zoster virus Not Detected (Not Detect.)
[2024-06-11] MEDS: levoFLOXacin 750 MG TABLET PO (17:30)
[2024-06-11 17:36] LABS: Appearance CSF CLEAR; CSF Monos 52 %; CSF Tube # 1; Color CSF COLORLESS; Lymphocytes CSF 46 %; Neutrophils CSF 2 %; Red Blood Cell CSF 7 MM*3; White Blood Cell CSF 8 MM*3
[2024-06-11 17:37] LABS: Appearance CSF CLEAR; CSF Tube # 4; Color CSF COLORLESS; Lymphocytes CSF 52 %; Red Blood Cell CSF 2 MM*3
[2024-06-11 17:41] LABS: CSF Monos 48 %
[2024-06-11 17:53] LABS: White Blood Cell CSF 10 MM*3
[2024-06-11 19:08] VITALS: BP 136/70; PULSE 96; RESP 16; TEMP 36.8; O2SAT 93
[2024-06-11] MEDS: Melatonin 3 MG TABLET 6 MG PO (20:31)
[2024-06-11 23:52] VITALS: BP 144/63; PULSE 91; RESP 16; TEMP 36.5; O2SAT 95
[2024-06-12 03:23] VITALS: BP 127/59; PULSE 87; RESP 16; TEMP 36; O2SAT 93
[2024-06-12] MEDS: Omeprazole 20 MG CAPSULE.DR PO (06:04)
[2024-06-12 07:15] VITALS: BP 112/57; PULSE 82; RESP 16; TEMP 36.9; O2SAT 93
[2024-06-12] MEDS: 0.9 % Sodium Chloride Flush 3 ML SYRINGE IVFLUSH ×2 (08:16→17:24)
[2024-06-12] MEDS: Cholecalciferol (Vitamin D3) 25 MCG TABLET 50 MCG PO (09:29)
[2024-06-12] MEDS: levETIRAcetam 1,000 MG TABLET 1000 MG PO ×2 (09:29→20:37)
[2024-06-12] MEDS: Heparin Sodium,Porcine Flush 50 UNITS, 0.9 % Sodium Chloride Flush 5 ML IVFLUSH ×2 (09:29→17:23)
[2024-06-12] MEDS: Aspirin Enteric Coated 81 MG TABLET.DR PO (09:29)
[2024-06-12] MEDS: Losartan Potassium 25 MG TABLET PO (09:29)
[2024-06-12] MEDS: Pravastatin Sodium 20 MG TABLET PO (09:29)
[2024-06-12] MEDS: Clotrimazole 1 % Cream 15 GM TUBE 1 APPL TOPICAL (09:36)
[2024-06-12 11:35] VITALS: BP 116/54; PULSE 85; RESP 16; TEMP 36.4; O2SAT 96
--- NOTE | 2024-06-12 14:38 | P.PNIM_ITS ---
Subjective Subjective Date of Service: 06/12/24 Interval History: Markedly improved this a.m.. Tolerated lumbar puncture yesterday without issue Review of Systems Unable to obtain Physical Exam 2 Vital Signs: Vital Signs: Last Vital Signs Temp 97.6 F 06/12/24 11:35 Pulse 85 06/12/24 11:35 Resp 16 06/12/24 11:35 BP 116/54 L 06/12/24 11:35 Pulse Ox 96 06/12/24 11:35 O2 Del Method Room Air 06/12/24 11:35 BMI result Body Mass Index 31.6 Const: Other: Awake confused Resp: Other: Clear to auscultation bilaterally no rales rhonchi or wheezes Cardio: Other: No S4; positive S1-S2; no S3 murmurs rubs or gallops GI: Other: Soft nontender nondistended normoactive bowel sounds Extrem: Other: No edema bilaterally Objective Data Active Medications Acetaminophen (Acetaminophen 325 Mg Tablet) 650 mg PO Q6H PRN PRN Reason: Pain, Mild 1-3,fever,headache Albuterol Sulfate (Albuterol Sulfate 90 Mcg 8 Gm Inhaler) 1 puff INHALE QID PRN PRN Reason: shortness of breath or wheezing Aspirin (Aspirin Enteric Coated 81 Mg Tablet.Dr) 81 mg PO DAILY [facility] Last Admin: 06/12/24 09:29 Dose: 81 mg Documented By: ELAINE Calcium Carbonate (Calcium Carbonate 750 Mg Tab.Chew) 750 mg PO Q4H PRN PRN Reason: Heartburn Clotrimazole (Clotrimazole 1 % Cream 15 Gm Tube) 1 appl TOPICAL DAILY [facility] Last Admin: 06/12/24 09:36 Dose: 1 appl Documented By: ELAINE Heparin Sodium (Porcine) 50 (units/ Sodium Chloride 5 ml) 0 units IVFLUSH QSHIFT [facility] Last Admin: 06/12/24 09:29 Dose: 50 unit Documented By: ELAINE Cyanocobalamin (Cyanocobalamin (Vitamin B-12) 1,000 Mcg Tablet) 1,000 mcg PO MO [facility] Enoxaparin Sodium (Enoxaparin Sodium 40 Mg/0.4 Ml Syringe) 40 mg SUBCUT Q24H [facility] Last Admin: 06/07/24 18:01 Dose: 40 mg Documented By: CORA Fluticasone Propionate (Fluticasone Propionate Nasal 16 Gm [place]) 1 spray NOSTRIL-B DAILY PRN PRN Reason: Allergy Symptoms Acyclovir Sodium 616 mg/ (Sodium Chloride) 262.32 mls @ 262.32 mls/hr IV Q8H [facility] Last Infusion: 06/12/24 09:33 Dose: Infused Documented By: ELAINE Levetiracetam (Levetiracetam 1,000 Mg Tablet) 1,000 mg PO BID [facility] Last Admin: 06/12/24 09:29 Dose: 1,000 mg Documented By: ELAINE Levofloxacin (Levofloxacin 750 Mg Tablet) 750 mg PO Q24H [facility] Last Admin: 06/11/24 17:30 Dose: 750 mg Documented By: WARD Losartan Potassium (Losartan Potassium 25 Mg Tablet) 25 mg PO DAILY [facility]; Protocol Last Admin: 06/12/24 09:29 Dose: 25 mg Documented By: ELAINE Magnesium Hydroxide (Milk Of Magnesia 30 Ml Oral.Susp) 30 ml PO DAILY PRN PRN Reason: Constipation Melatonin (Melatonin 3 Mg Tablet) 6 mg PO BEDTIME PRN PRN Reason: Insomnia Last Admin: 06/11/24 20:31 Dose: 6 mg Documented By: JERARDO Mirtazapine (Mirtazapine 7.5 Mg Tablet) 7.5 mg PO BEDTIME PRN PRN Reason: Sleep Last Admin: 06/11/24 11:23 Dose: 7.5 mg Documented By: WARD Nystatin (Nystatin Powder 15 Gm Bottle) 1 appl TOPICAL DAILY PRN; Protocol PRN Reason: Fungal Infection Omeprazole (Omeprazole 20 Mg Capsule.) 20 mg PO DAILY@0630 [facility] Last Admin: 06/12/24 06:04 Dose: 20 mg Documented By: JERARDO Pravastatin Sodium (Pravastatin Sodium 20 Mg Tablet) 20 mg PO DAILY [facility] Last Admin: 06/12/24 09:29 Dose: 20 mg Documented By: ELAINE Sodium Chloride (0.9 % Sodium Chloride Flush 3 Ml Syringe) 3 ml IVFLUSH QSHIFT [facility] Last Admin: 06/12/24 08:16 Dose: 3 ml Documented By: ELAINE Vitamin D (Cholecalciferol (Vitamin D3) 25 Mcg Tablet) 50 mcg PO DAILY [facility] Last Admin: 06/12/24 09:29 Dose: 50 mcg Documented By: ELAINE Labs 06/09/24 06:56 06/10/24 07:32 Labs: Laboratory Results - last 24 hr 06/11/24 06/11/24 06/11/24 14:51 14:51 14:51 CSF Tube Number 2 1 4 CSF Volume 3.0 CSF Appearance CSF Color CSF WBC CSF RBC CSF Neutrophils CSF Lymphocytes CSF Monocytes % CSF Appearance (b) CSF Glucose CSF Total Protein CSF C.neoform/gat PCR CSF CMV DNA (PCR) CSF Enterovirus (PCR) CSF E. coli K1 (PCR) CSF H. influenzae (PCR) CSF HSV I (PCR) CSF HSV II (PCR) CSF HHV 6 (PCR) CSF L.monocytogenes PCR CSF N. meningitidis PCR CSF Parechovirus (PCR) CSF S. agalactiae (PCR) CSF S. pneumoniae (PCR) CSF VZV (PCR) 06/11/24 06/11/24 06/11/24 14:51 14:51 14:51 CSF Tube Number CSF Volume 4.0 CSF Appearance CLEAR CLEAR CSF Color COLORLESS COLORLESS CSF WBC 8 CSF RBC CSF Neutrophils CSF Lymphocytes CSF Monocytes % CSF Appearance (b) CSF Glucose CSF Total Protein CSF C.neoform/gat PCR CSF CMV DNA (PCR) CSF Enterovirus (PCR) CSF E. coli K1 (PCR) CSF H. influenzae (PCR) CSF HSV I (PCR) CSF HSV II (PCR) CSF HHV 6 (PCR) CSF L.monocytogenes PCR CSF N. meningitidis PCR CSF Parechovirus (PCR) CSF S. agalactiae (PCR) CSF S. pneumoniae (PCR) CSF VZV (PCR) 06/11/24 06/11/24 06/11/24 14:51 14:51 14:51 CSF Tube Number CSF Volume CSF Appearance CSF Color CSF WBC 10 H* CSF RBC 7 2 CSF Neutrophils 2 CSF Lymphocytes 46 52 CSF Monocytes % 52 CSF Appearance (b) CSF Glucose CSF Total Protein CSF C.neoform/gat PCR CSF CMV DNA (PCR) CSF Enterovirus (PCR) CSF E. coli K1 (PCR) CSF H. influenzae (PCR) CSF HSV I (PCR) CSF HSV II (PCR) CSF HHV 6 (PCR) CSF L.monocytogenes PCR CSF N. meningitidis PCR CSF Parechovirus (PCR) CSF S. agalactiae (PCR) CSF S. pneumoniae (PCR) CSF VZV (PCR) 06/11/24 14:51 CSF Tube Number CSF Volume CSF Appearance CSF Color CSF WBC CSF RBC CSF Neutrophils CSF Lymphocytes CSF Monocytes % 48 CSF Appearance (b) Clear, Colorless CSF Glucose 66 CSF Total Protein 33.6 CSF C.neoform/gat PCR Not Detected CSF CMV DNA (PCR) Not Detected CSF Enterovirus (PCR) Not Detected CSF E. coli K1 (PCR) Not Detected CSF H. influenzae (PCR) Not Detected CSF HSV I (PCR) Not Detected CSF HSV II (PCR) Not Detected CSF HHV 6 (PCR) Not Detected CSF L.monocytogenes PCR Not Detected CSF N. meningitidis PCR Not Detected CSF Parechovirus (PCR) Not Detected CSF S. agalactiae (PCR) Not Detected CSF S. pneumoniae (PCR) Not Detected CSF VZV (PCR) Not Detected Microbiology Microbiology Results: Microbiology 06/11/24 14:51 Gram Stain - Final Cerebrospinal Fluid CSF Examination - Final Fluid Description - Final CSF Culture - Preliminary No growth to date. 06/07/24 Unknown Urine Culture - Final Urine Catheterized - Straight Catheter Streptococcus viridans group Assessment and Plan (1) Urinary tract infection: Status: Acute (2) Encephalopathy: Status: Acute Plan 88yo F with HTN, HLD, GERD, hx CVA, hx UTI with encephalopathy sent in for AMS; had witnessed generalized seizure in ED and septic from UTI 1.Sepsis due to UTI (preliminary Gram-positive cocci).. Sepsis resolved -levofloxacin [prior Enterobacter aerogenes] (5 ) -CSF HSV negative. .. We will DC acyclovir 2.New-onset seizure/EEG read as left temporal sharp waves -continue levetiracetam 1g bid; change IV to PO in a.m. 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
[2024-06-12] MEDS: Acetaminophen 325 MG TABLET 650 MG PO (15:00)
[2024-06-12 16:00] VITALS: BP 110/55; PULSE 88; RESP 18; TEMP 36.8; O2SAT 94
[2024-06-12] MEDS: levoFLOXacin 750 MG TABLET PO (17:23)
[2024-06-12 19:19] VITALS: BP 98/52; PULSE 89; RESP 20; TEMP 36.6; O2SAT 93
[2024-06-12 22:19] VITALS: BP 117/57; PULSE 88; RESP 20; TEMP 36.8; O2SAT 97
[2024-06-13] MEDS: Heparin Sodium,Porcine Flush 50 UNITS, 0.9 % Sodium Chloride Flush 5 ML IVFLUSH ×4 (00:25→20:39)
[2024-06-13] MEDS: 0.9 % Sodium Chloride Flush 3 ML SYRINGE IVFLUSH ×3 (02:59→15:54)
[2024-06-13 03:07] VITALS: BP 139/63; PULSE 90; RESP 20; TEMP 37.3; O2SAT 93
[2024-06-13] MEDS: Omeprazole 20 MG CAPSULE.DR PO (05:56)
[2024-06-13 07:43] VITALS: BP 130/60; PULSE 83; RESP 18; TEMP 36.1; O2SAT 93
[2024-06-13] MEDS: Losartan Potassium 25 MG TABLET PO (09:29)
[2024-06-13] MEDS: Aspirin Enteric Coated 81 MG TABLET.DR PO (09:29)
[2024-06-13] MEDS: Cholecalciferol (Vitamin D3) 25 MCG TABLET 50 MCG PO (09:30)
[2024-06-13] MEDS: levETIRAcetam 1,000 MG TABLET 1000 MG PO ×2 (09:30→20:38)
[2024-06-13] MEDS: Pravastatin Sodium 20 MG TABLET PO (09:30)
[2024-06-13] MEDS: Clotrimazole 1 % Cream 15 GM TUBE 1 APPL TOPICAL (09:40)
--- NOTE | 2024-06-13 11:29 | HO.PM.IMPN ---
Subjective Subjective Date of Service: 06/13/24 Interval History: Remains confused however more alert than initial presentation Review of Systems Unable to obtain Physical Exam Vital Signs: Vital Signs: Last Vital Signs Temp 96.9 F 06/13/24 07:43 Pulse 83 06/13/24 07:43 Resp 18 06/13/24 07:43 BP 130/60 06/13/24 07:43 Pulse Ox 93 06/13/24 07:43 O2 Del Method Room Air 06/13/24 07:43 BMI result Body Mass Index 31.6 Const: Other: Awake confused Resp: Other: Clear to auscultation bilaterally no rales rhonchi or wheezes Cardio: Other: No S4; positive S1-S2; no S3 murmurs rubs or gallops GI: Other: Soft nontender nondistended normoactive bowel sounds Extrem: Other: No edema bilaterally Objective Data Active Medications Acetaminophen (Acetaminophen 325 Mg Tablet) 650 mg PO Q6H PRN PRN Reason: Pain, Mild 1-3,fever,headache Last Admin: 06/12/24 15:00 Dose: 650 mg Documented By: ELAINE Albuterol Sulfate (Albuterol Sulfate 90 Mcg 8 Gm Inhaler) 1 puff INHALE QID PRN PRN Reason: shortness of breath or wheezing Aspirin (Aspirin Enteric Coated 81 Mg Tablet.) 81 mg PO DAILY [facility] Last Admin: 06/13/24 09:29 Dose: 81 mg Documented By: ELAINE Calcium Carbonate (Calcium Carbonate 750 Mg Tab.Chew) 750 mg PO Q4H PRN PRN Reason: Heartburn Clotrimazole (Clotrimazole 1 % Cream 15 Gm Tube) 1 appl TOPICAL DAILY [facility] Last Admin: 06/13/24 09:40 Dose: 1 appl Documented By: ELAINE Heparin Sodium (Porcine) 50 (units/ Sodium Chloride 5 ml) 0 units IVFLUSH QSHIFT [facility] Last Admin: 06/13/24 09:31 Dose: 50 unit Documented By: ELAINE Cyanocobalamin (Cyanocobalamin (Vitamin B-12) 1,000 Mcg Tablet) 1,000 mcg PO MO [facility] Enoxaparin Sodium (Enoxaparin Sodium 40 Mg/0.4 Ml Syringe) 40 mg SUBCUT Q24H [facility] Last Admin: 06/07/24 18:01 Dose: 40 mg Documented By: CORA Fluticasone Propionate (Fluticasone Propionate Nasal 16 Gm Almond) 1 spray NOSTRIL-B DAILY PRN PRN Reason: Allergy Symptoms Levetiracetam (Levetiracetam 1,000 Mg Tablet) 1,000 mg PO BID [facility] Last Admin: 06/13/24 09:30 Dose: 1,000 mg Documented By: ELAINE Levofloxacin (Levofloxacin 750 Mg Tablet) 750 mg PO Q24H [facility] Last Admin: 06/12/24 17:23 Dose: 750 mg Documented By: ELAINE Losartan Potassium (Losartan Potassium 25 Mg Tablet) 25 mg PO DAILY [facility]; Protocol Last Admin: 06/13/24 09:29 Dose: 25 mg Documented By: ELAINE Magnesium Hydroxide (Milk Of Magnesia 30 Ml Oral.Susp) 30 ml PO DAILY PRN PRN Reason: Constipation Melatonin (Melatonin 3 Mg Tablet) 6 mg PO BEDTIME PRN PRN Reason: Insomnia Last Admin: 06/11/24 20:31 Dose: 6 mg Documented By: JERARDO Mirtazapine (Mirtazapine 7.5 Mg Tablet) 7.5 mg PO BEDTIME PRN PRN Reason: Sleep Last Admin: 06/11/24 11:23 Dose: 7.5 mg Documented By: WARD Nystatin (Nystatin Powder 15 Gm Bottle) 1 appl TOPICAL DAILY PRN; Protocol PRN Reason: Fungal Infection Omeprazole (Omeprazole 20 Mg Capsule.Dr) 20 mg PO DAILY@0630 [facility] Last Admin: 06/13/24 05:56 Dose: 20 mg Documented By: GLADIS Pravastatin Sodium (Pravastatin Sodium 20 Mg Tablet) 20 mg PO DAILY [facility] Last Admin: 06/13/24 09:30 Dose: 20 mg Documented By: ELAINE Sodium Chloride (0.9 % Sodium Chloride Flush 3 Ml Syringe) 3 ml IVFLUSH QSHIFT [facility] Last Admin: 06/13/24 09:31 Dose: 3 ml Documented By: ELAINE Vitamin D (Cholecalciferol (Vitamin D3) 25 Mcg Tablet) 50 mcg PO DAILY [facility] Last Admin: 06/13/24 09:30 Dose: 50 mcg Documented By: ELAINE Labs 06/09/24 06:56 06/10/24 07:32 Microbiology Microbiology Results: Microbiology 06/11/24 14:51 Gram Stain - Final Cerebrospinal Fluid CSF Examination - Final Fluid Description - Final CSF Culture - Preliminary No growth after 1 day 06/07/24 14:01 Blood Culture - Final Blood - Venous No growth after 5 days. 06/07/24 12:56 Blood Culture - Final Blood - Venous No growth after 5 days. 06/07/24 Unknown Urine Culture - Final Urine Catheterized - Straight Catheter Streptococcus viridans group Assessment and Plan (1) Urinary tract infection: Status: Acute Plan 88yo F with HTN, HLD, GERD, hx CVA, hx UTI with encephalopathy sent in for AMS; had witnessed generalized seizure in ED and septic from UTI 1.Sepsis due to UTI (preliminary Gram-positive cocci).. Sepsis resolved -levofloxacin [prior Enterobacter aerogenes] (6).. Switch to oral upon DC -CSF HSV negative. .. We will DC acyclovir 2.New-onset seizure/EEG read as left temporal sharp waves -continue levetiracetam 1g bid; change IV to PO in a.m. 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
[2024-06-13 11:31] VITALS: BP 116/59; PULSE 90; RESP 18; TEMP 36.2; O2SAT 94
[2024-06-13] MEDS: Acetaminophen 325 MG TABLET 650 MG PO (11:46)
[2024-06-13 15:43] VITALS: BP 124/58; PULSE 84; RESP 18; TEMP 36.7; O2SAT 96
[2024-06-13] MEDS: levoFLOXacin 750 MG TABLET PO (15:53)
[2024-06-13 19:37] VITALS: BP 125/58; PULSE 83; RESP 18; TEMP 36.5; O2SAT 96
[2024-06-14] VITALS: BP 116/55; PULSE 85; RESP 18; TEMP 36.2; O2SAT 92
[2024-06-14 03:29] VITALS: BP 129/61; PULSE 80; RESP 18; TEMP 36.1; O2SAT 96
[2024-06-14] MEDS: Omeprazole 20 MG CAPSULE.DR PO (05:47)
[2024-06-14 07:28] VITALS: BP 131/62; PULSE 78; RESP 16; TEMP 36.8; O2SAT 96
[2024-06-14] MEDS: 0.9 % Sodium Chloride Flush 3 ML SYRINGE IVFLUSH (09:18)
[2024-06-14] MEDS: Heparin Sodium,Porcine Flush 50 UNITS, 0.9 % Sodium Chloride Flush 5 ML IVFLUSH (09:18)
[2024-06-14] MEDS: Cholecalciferol (Vitamin D3) 25 MCG TABLET 50 MCG PO (09:19)
[2024-06-14] MEDS: Losartan Potassium 25 MG TABLET PO (09:19)
[2024-06-14] MEDS: levETIRAcetam 1,000 MG TABLET 1000 MG PO (09:19)
[2024-06-14] MEDS: Aspirin Enteric Coated 81 MG TABLET.DR PO (09:20)
[2024-06-14] MEDS: Pravastatin Sodium 20 MG TABLET PO (09:20)
[2024-06-14] MEDS: Cyanocobalamin (Vitamin B-12) 1,000 MCG TABLET 1000 MCG PO (09:22)
--- NOTE | 2024-06-14 10:05 | MHC.SLORD ---
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 RN consulted. BALLPOINT PEN ASSEMBLY MACHINE OPERATOR to return later in the day when pt awake for dysphagia treatment.
[2024-06-14 12:00] VITALS: BP 118/60; PULSE 98; RESP 14; TEMP 36.1; O2SAT 99
--- NOTE | 2024-06-14 12:28 | P.DS_ITS ---
DS: Providers Provider Date of Service: 06/14/24 Date of admission: 06/07/24 15:30 Date of discharge: 06/14/24 Primary care physician: Nicola Lebron MD Consults: 06/07/24 15:37 Consult to Neurology Routine Consulting Provider: [facility] Reason for consultation: sz reported by ED provider DS: Diagnosis Discharge Diagnosis (1) Urinary tract infection: Status: Acute DS: Summary Hospital Course Hospital Course: 88-year-old female with a PMH significant for HTN, HLD, GERD, and hx of CVA 30+ years ago who presents to the ED from the [facility] for evaluation of altered mental status. She was BIBA on stroke alert. Last known well time 0800 with symptom onset at 1030 per her daughter who is at bedside and is HCP. She has history of UTI with encephalopathy and is mew except for occasional screams and is behaving similarly to her daughter. She is moving all extremities and flailing in bed upon arrival to the room. Per her daughter, there was no reported slurred speech, facial droop, ataxia, weakness, or paresthesias. She was admitted in 12/15 with Enterobacter UTI and encephalopathy. On arrival to exam room, ER doctor reports that she had a witnessed 1 minute tonic-clonic seizure and was given Ativan at that time. Her daughter denies any known history of seizure activity. She was also given Keppra. During exam, patient is noted to be coughing and patient's daughter states this has been ongoing for several months. Denies any known history of chronic lung disease. Reports she has been tested for flu and COVID and has been negative. Since arrival, vital signs have been stable though slightly hypertensive to 162/65. There was no leukocytosis. Renal function and electrolyte levels are normal except for chloride 112. Troponin undetectable. Urinalysis with positive nitrites, 4+ bacteria, and elevated specific gravity. No leukocytes or WBCs noted, there is a small amount of squamous epithelial cells. Head CT negative for any acute intracranial abnormality. Head/neck CTA negative for any large vessel occlusion or embolus. No high-grade stenosis or dissection.. There is also concerning multinodular goiter. In the ED, has received Haldol, Ativan, and ceftriaxone. Hospital Course Patient was admitted to general medical floor and started on Levaquin for presumed UTI. Speech noted some right-sided facial droop initially in hospitalization. Seen in consultation by Neurology who recommended EEG. EEG read as having sharp left temporal waves. Suspicious for herpes encephalitis. Midline was placed inpatient empirically started on acyclovir. LP was done and CSF failed to demonstrate any HSV. Given such, acyclovir was DC. She completed a course of Levaquin without issue. At this point daughter feels he is back at baseline and wishes to take her home with services. She can follow up with her PCP as outpatient Time Attestation Discharge Coordination Time (in mins): 35 Quality: Safe Use of Opioids Does Pt have an Active Cancer Diagnosis on the Problem List?: No Quality: Stroke Does the patient have a stroke diagnosis?: No Physical Exam Vital Signs: Vital Signs: Last Vital Signs Temp 97.0 F 06/14/24 12:00 Pulse 98 06/14/24 12:00 Resp 14 06/14/24 12:00 BP 118/60 06/14/24 12:00 Pulse Ox 99 06/14/24 12:00 O2 Del Method Room Air 06/14/24 12:00 BMI result Body Mass Index 31.6 Const: Other: Awake confused Resp: Other: Clear to auscultation bilaterally no rales rhonchi or wheezes Cardio: Other: No S4; positive S1-S2; no S3 murmurs rubs or gallops GI: Other: Soft nontender nondistended normoactive bowel sounds Extrem: Other: No edema bilaterally DS: Data Data Completed and Pending Labs on day of discharge: Preliminary micro results at discharge 06/11/24 14:51 CSF Culture - Preliminary Cerebrospinal Fluid No growth after 2 days Discharge Plan Discharge Anticipated Discharge Date/Time: 06/14/24 12:23 Patient Disposition: Home Health Service Discharge Diagnosis: Acute encephalopathy secondary to UTI Referrals: Po,Nicola Emery MD [Primary Care Provider] - 1 Week Discharge Medications: New levetiracetam 1,000 mg Tablet 1,000 mg PO BID Qty: 60 0RF sulfamethoxazole-trimethoprim [Bactrim DS] 800-160 mg tablet 1 tab PO BID Qty: 14 0RF Continued (DME) PAIN RELIEVING PATCHES WITH HEAT See Rx Instructions .Route .MEDSUPPLY Qty: 60 12RF Rx Instructions: As directed (DME) gloves medium See Rx Instructions .Route .MEDSUPPLY Qty: 1 12RF Rx Instructions: As directed (DME) Contour plus bladder pads See Rx Instructions .Route .MEDSUPPLY Qty: 3 12RF Rx Instructions: As directed (DME) gloves large See Rx Instructions .Route .MEDSUPPLY Qty: 1 12RF Rx Instructions: As directed (DME) underwear pull ups 3 per day XL See Rx Instructions .Route .MEDSUPPLY Qty: 6 12RF Rx Instructions: As directed (DME) Pad liners for bed and chair See Rx Instructions .Route .MEDSUPPLY Qty: 6 12RF Rx Instructions: As directed (DME) flushable toilet wipes See Rx Instructions .Route .MEDSUPPLY Qty: 5 12RF Rx Instructions: As directed (DME) reclining lift chair. See Rx Instructions .Route .MEDSUPPLY Qty: 1 0RF Rx Instructions: As directed omeprazole 20 mg capsule,delayed release(DR/EC) 20 mg PO DAILY@0630 Qty: 90 2RF pravastatin 20 mg tablet 20 mg PO DAILY Qty: 90 2RF aspirin 81 mg tablet,delayed release (DR/EC) 81 mg PO DAILY Qty: 90 3RF losartan 25 mg tablet 25 mg PO DAILY Qty: 30 1RF albuterol sulfate 90 mcg/actuation HFA aerosol inhaler 1 inh inhalation QID PRN (Reason: shortness of breath or wheezing) Qty: 8.5 0RF nystatin 100,000 unit/gram powder 1 appl topical DAILY PRN (Reason: Fungal Infection) mirtazapine 7.5 mg tablet 7.5 mg PO BEDTIME PRN (Reason: Sleep) cyanocobalamin (vitamin B-12) [Vitamin B-12] 1,000 mcg Tablet 1,000 mcg PO MO cholecalciferol (vitamin D3) [Vitamin D3] 50 mcg (2,000 unit) Tablet 50 mcg PO DAILY estradiol 0.01 % (0.1 mg/gram) cream 1 g vaginal TUTH fluticasone propionate 50 mcg/actuation spray,suspension 1 spray intranasal DAILY PRN (Reason: Allergy Symptoms) acetaminophen [Tylenol Extra Strength] 500 mg tablet 1,000 mg PO Q6H PRN (Reason: Pain) (DME) EASY RISE WALKER See Rx Instructions .Route .MEDSUPPLY Qty: 1 0RF Rx Instructions: As directed (DME) BATH AND SHOWER STEP WITH HANDLE See Rx Instructions .Route .MEDSUPPLY Qty: 1 0RF Rx Instructions: As directed ketoconazole 2 % cream See Rx Instructions topical DAILY Qty: 60 2RF Rx Instructions: apply to under the breast and under belly fold topically daily; Discharge Orders: Discharge Order (Routine); Ordered 06/14/24 Ordered By: David Rodarte Diet: Advance to usual diet Activity on Discharge: As tolerated Stand Alone Forms: Patient Portal Discharge page Print Language: Kosovan Care Plan Goals: Continue Keppra 1000 mg twice daily. Follow up with PCP for dose adjustment Health Concerns: Continue all other medications as taken prior to hospitalization Plan of Treatment: Follow up with your PCP next available Assessment: See discharge summary
--- NOTE | 2024-06-14 12:33 | W.MHC.F2F ---
Service Date Service Date: 06/14/24 Encounter Date of encounter: 06/14/24 Reasons for Services Signs and symptoms assessed: Monitor response to therapies and physical therapy Reason for group home: medication management, medication treatment and teach disease management Reason for physical therapy: home safety and mobility, therapeutic exercises and gait/transfer training Homebound: Leaving the home is medically contraindicated at this time without the asist of a device and/or another person due th the listed conditions above and below. Reason homebound: unsteady gait / fall risk and unable to drive Certification: Based on the above findings, I certify that this patient is confined to the home and needs intermittent group home care, physical therapy and/or speech therapy, or continues to need occupational therapy. The patient is under my care, and I have initiated the establishment of the plan of care. The patient will be followed by a physician who will periodically review the plan of care. Time Spent With Patient Time: Total time managing care of this patient today ____ minutes.
--- NOTE | 2024-06-14 13:40 | MHC.SL.SWA ---
Speech Pathologist Impression: Risk of Aspiration Due to: Lethargy Neurological Condition Dysphasia Diet Status: Recommend CONTINUE with Ground Mechanical (NDD2) and THIN liquids, pills crushed in puree. Due to level of confusion patient requires direct supervision with assistance, including orienting to meal, opening all items, initiating meal and assisting as needed. Liquid Consistency and Strategies for Safe Swallow: Liquid Intake Recommendation: Thin Liquid Intake Strategies: Small Sips Solid Food Consistency: Dietary Recommendations: Grnd/Mech Altered (NDD2) Additional Modifications to Solid Foods: Due to level of confusion patient requires direct supervision with assistance, including orienting to meal, opening all items, initiating meal and assisting as needed. Alternate liquids and solids regularly, oral check to assure food is not present or pocketed after swallow. Oral Medication Intake: Crushed with Puree Please contact the pharmacy regarding appropriate crushable or liquid drug formulations that are available whenever modified delivery is recommended. Compensatory Strategies and Precautions to be Taken for Safe Swallow: Sitting Upright (90 deg) Liquids from Cup Liquids from Straw Small Bites and Sips Alternate Liquids/Solids Oral Check Supervision While Eating and Drinking for Safe Swallow: Total Supervision (1:1) Foods to Avoid: Difficult to chew solids, too large pieces of food. Swallowing Recommended Treatments: Compens. Strategy Educat. Recommendation for Speech: Outpatient Speech Therapy Inpatient Speech Therapy Comment: Pt benefits from cues to reduce bolus size and time speaking. LANDCARE OFFICER reviewed [facility] safety precautions for carryover upon d/c. Pt and family friend in agreement. Further LANDCARE OFFICER intervention available upon MD request s/p discharge. Frequency/Duration: Date Range for Service Req: Timeline to reassess: Open Hearth Helper Clinican/Clinical Fellow: No Supervisory Statement: I have reviewed and agree with the student/clinical fellow's documentation: N/A Speech Language Pathologist: Michelle Galan M.S., CCC-LANDCARE OFFICER
--- NOTE | 2024-06-14 14:21 | MHC.CM.PN ---
PT TO DC HOME TODAY WITH [facility] AT 1500 HOURS
[2024-06-14 15:37] VITALS: BP 122/65; PULSE 87; RESP 16; TEMP 36.4; O2SAT 96
== END 2024-06-14 14:07 | disposition home health service (06) | DRG 871 ==
LOC: HO.ED 14:40 → HO.EDOVER 18:52 → HO.IMC 06-08 00:48 → HO.EDOVER 06-08 00:57 → HO.S3 06-10 17:22
PROVIDERS: Family Medicine; Registered Nurse Emergency; Admitting Provider Physician Assistant; Emergency Provider Emergency Medicine Emergency Medical Services; PCP Internal Medicine; Visit Provider Hospitalist
DX: A41.9 Sepsis, unspecified organism (principal); G93.41 Metabolic encephalopathy; N39.0 Urinary tract infection, site not specified; Z87.440 Personal history of urinary (tract) infections; E78.5 Hyperlipidemia, unspecified; Z86.73 Personal history of transient ischemic attack (TIA), and cerebral infarction without residual deficits; K21.9 Gastro-esophageal reflux disease without esophagitis; E04.2 Nontoxic multinodular goiter; R56.9 Unspecified convulsions; Z20.822 Contact with and (suspected) exposure to COVID-19; Z79.82 Long term (current) use of aspirin; Z79.899 Other long term (current) drug therapy
CPT/HCPCS: 0241U; 36410; 36415; 62328; 70450; 70496; 70498; 70551; 71045; 80048; 80053; 80061; 81001; 82607; 82746; 82945; 82947; 83605; 84145; 84157; 84443; 84484; 85025; 85027; 85610; 85730; 86140; 87015; 87040; 87070; 87086; 87205; 87483; 89051; 92526; 92610; 93005; 95816; 97162; 99285; C1751; J0131; J0133; J0696; J1630; J1642; J1650; J1836; J1885; J1953; J1956; J2060

== ENCOUNTER → 2024-06-07 12:07 | Outpatient (BNV) | payer OTHER, SELFPAY | PROVIDERS: Emergency Provider Emergency Medicine Emergency Medical Services; PCP Internal Medicine; Visit Provider Internal Medicine Cardiovascular Disease | DX: I45.10 Unspecified right bundle-branch block (principal); I21.19 ST elevation (STEMI) myocardial infarction involving other coronary artery of inferior wall | CPT/HCPCS: 93010 ==

== ENCOUNTER → 2024-06-07 12:07 | Outpatient (BNV) | payer OTHER, SELFPAY | PROVIDERS: Emergency Provider Emergency Medicine Emergency Medical Services; PCP Internal Medicine; Visit Provider Radiology Diagnostic Radiology | DX: R41.82 Altered mental status, unspecified (principal); R05.9 Cough, unspecified | CPT/HCPCS: 70450; 70496; 70498; 71045 ==

== ENCOUNTER → 2024-06-07 12:17 | Outpatient (BNV) | payer OTHER, SELFPAY | PROVIDERS: Emergency Provider Emergency Medicine Emergency Medical Services; PCP Internal Medicine; Visit Provider Physician Assistant | DX: G93.40 Encephalopathy, unspecified (principal); N39.0 Urinary tract infection, site not specified; R56.9 Unspecified convulsions; R26.81 Unsteadiness on feet | CPT/HCPCS: 99223; 99232; 99233; 99239; G0180 ==

== ENCOUNTER 2024-06-07 15:30 | Outpatient (BNV) | payer OTHER, SELFPAY | END 2024-06-08 17:20 | PROVIDERS: Admitting Provider Physician Assistant; Emergency Provider Emergency Medicine Emergency Medical Services; PCP Internal Medicine; Visit Provider Radiology Diagnostic Radiology | DX: G04.90 Encephalitis and encephalomyelitis, unspecified (principal) | CPT/HCPCS: 70551 ==

== ENCOUNTER 2024-06-07 15:30 | Outpatient (BNV) | payer OTHER, SELFPAY | END 2024-06-11 14:50 | PROVIDERS: Admitting Provider Physician Assistant; Emergency Provider Emergency Medicine Emergency Medical Services; PCP Internal Medicine; Visit Provider Radiology Diagnostic Radiology | DX: G96.09 Other spinal cerebrospinal fluid leak (principal) | CPT/HCPCS: 62328 ==

== ENCOUNTER → 2024-06-07 15:30 | Outpatient (BNV) | payer OTHER, SELFPAY | PROVIDERS: Admitting Provider Physician Assistant; Emergency Provider Emergency Medicine Emergency Medical Services; PCP Internal Medicine; Visit Provider Psychiatry & Neurology Neurology | DX: G93.40 Encephalopathy, unspecified (principal) | CPT/HCPCS: 99222 ==

== ENCOUNTER 2024-06-22 08:54 | Outpatient (AMB) | payer OTHER, SELFPAY ==
--- NOTE | 2024-06-22 08:55 | A.OFFPC_ITS ---
Intake Visit Reasons: [facility] 06/14 UTI/ Seizure requesting to speak DR Lebron Supervisor [employer] Required: No Accompanied by: Daughter Allergies lisinopril Allergy (Unknown, Verified 06/22/24 09:40) cough Amlodipine Adverse Reaction (Intermediate, Uncoded 06/22/24 09:40) Leg swelling Medication List - Last Reconciled 06/22/24 by ANGELI Gregg acetaminophen (Tylenol Extra Strength) 1,000 mg PO Q6H PRN albuterol sulfate 90 mcg/actuation 1 inh inhalation QID PRN aspirin 81 mg PO DAILY [BATH AND SHOWER STEP WITH HANDLE As directed] bismuth subsalicylate (Pepto-Bismol) 524 mg PO Q1H PRN cholecalciferol (vitamin D3) (Vitamin D3) 50 mcg PO DAILY [Contour plus bladder pads As directed] cyanocobalamin (vitamin B-12) (Vitamin B-12) 1,000 mcg PO MO [EASY RISE WALKER As directed] estradiol 0.01%(0.1mg/gram) 1 g vaginal TUTH [flushable toilet wipes As directed] fluticasone propionate 50 mcg/actuation 1 spray intranasal DAILY PRN [gloves As directed] [gloves As directed] ketoconazole 2% apply to under the breast and under belly fold topically daily; levetiracetam 500 mg PO BEDTIME losartan 25 mg PO DAILY mirtazapine 7.5 mg PO BEDTIME PRN nystatin 1 appl topical DAILY PRN omeprazole 20 mg PO DAILY@0630 [Pad liners for bed and chair As directed] [PAIN RELIEVING PATCHES WITH HEAT As directed] pravastatin 20 mg PO DAILY [reclining lift chair. As directed] [underwear pull ups 3 per day As directed] Tobacco use date assessed: 06/22/24 Fall risk assessment: 2 + Falls in past year (Slipped out of chair) Last assessed Fall Risk: 06/22/24 Dental Screening Dental Screen Date: 06/22/24 Did you have a dental visit in the last 12 months?: Yes Did you have a dental problem in the last 6 months where you did not have access to dental care?: No Was dental information given to patient?: Patient has dentist HPI [facility] 06/14 UTI/ Seizure requesting to speak DR Lebron HPI Details This is a medically necessary visit as the patient would typically be seen in the office, however, the patient is unable to come in the office so the visit was converted to an audiovisual, telephone visit format with patient's consent and request. Patient understands that this visit was in place of an in person visit and is aware of the risks of communicating via phone/computer and verbally consents. The patient is 88 year old female PMH significant for vascular dementia, HTN, HLD, GERD, and hx of CVA 30 + years ago who presented to the ED from the [facility] for evaluation of AMS. She was diagnosed with the UTI. In the emergency room the patient had a witnessed to 1 minute tonic-clonic seizure with grease on Ativan at the time. The daughter endorsed history of seizure activity in the past that has not reoccurred in a long time. EEG showed sharp left temporal waves. The patient was started on Keppra a 1000 mg b.i.d.. Patient had a negative head CT and head and neck CTA to rule out stroke. There was also suspicion for herpes encephalitis. So the patient was placed empirically on acyclovir and an LP was done that was negative and the acyclovir was DC'd. The patient completed a course of Levaquin without issue. Per chart the daughter reports that the patient was back to baseline and wishes to take her home. In today's visit. Daughter is concerned about the patient being on Keppra. Reports that the patient has not been herself and her mood as changed to aggression. Reports that she has been researching this medication and has been talking to her friend who is a nurse. Reports that she does not think that her mother needed to be started on this medication because she does not have seizures all the time and this could have been related to her UTI or possible TIA Per daughter she has been weaning down the Keppra. She is currently giving her mom 500 mg at bedtime only at this time. The daughter wants to see if Dr. Lebron could discontinue the medication. Discussed with the patient's daughter that she should be taken up this concern with the neurologist. In addition, a verbalized with the patient's daughter that if the patient is having a negative effect from the medication the neurologist might be able to put her on a different medication. Patient reports that she thinks this is all due to her chronic UTI and she discussed this with Dr. Po already, who ordered Macrobid 50 mg p.o. at bedtime, which has not been started yet. The daughter also reports that the patient is still having some diarrhea from the antibiotics that she had in the hospital. Discussed with the daughter to wait until the patient diarrhea is cleared up before starting her the the Macrobid chronic/UTI treatment. A urinalysis was ordered to recheck urine in 2 weeks. Spoke with the patient briefly, denies chest pain, shortness of breath, heart palpitation 35 time on telehealth [facility] Medical History (Updated 06/22/24 @ 10:09 by ANGELI Gregg) Recurrent UTI Altered mental status Acute encephalopathy Bilateral arm pain Osteoarthritis of knees, bilateral TIA (transient ischemic attack) Seizure disorder Knee osteoarthritis Urinary incontinence GERD (gastroesophageal reflux disease) COPD (chronic obstructive pulmonary disease) Obesity (BMI 30-39.9) Hypertension UTI (urinary tract infection) Hypertriglyceridemia Impaired glucose tolerance Vitamin D deficiency Surgical History H/O oophorectomy History of abdominal hysterectomy History of bilateral cataract extraction H/O left wrist surgery Family History Father No problems noted. Mother Past heart attack Sister Diabetes Brother Prostate cancer Social History Household Members: Children Housing: Unknown / Unable to assess Alcohol intake: never Comment: Family in room, pt may need sitter for noc Patient Tobacco Use Status: Never used Tobacco Tobacco use type: Cigarette e-Cigarette/Vaping Use: Never Used Second Hand Smoke Exposure: No Advance Directives Date on File: 12/23/23 service: No Current occupational status: retired Cognitive needs: Yes (cane, walker) Hearing needs: No Vision needs: Yes (glasses) Questionnaire Thrive Questionnaire Date Thrive assessed: 06/08/24 RUBINA-7 AMB Questionnaire RUBINA-7 Date RUBINA - 7 assessed: 05/04/24 Source: Developed by Drs. Gabriel Jiménez, Krupa Paez, Jesus Quintana and colleagues, with an educational akila from [employer]. Review of Systems Const Denies headache(s) Eyes Denies loss of vision ENT Denies vertigo, Denies dizziness, Denies headache(s) and Denies sore throat Card Denies chest pain, Denies leg edema and Denies lightheadedness Resp Denies cough, Denies hemoptysis and Denies wheezing GI Denies abdominal pain, Denies melena, Denies constipation, Reports diarrhea (Post antibiotics) and Denies vomiting Denies urinary frequency, Denies dysuria and Denies urinary urgency Musc Denies arthralgias, Denies joint swelling, Denies numbness, Denies tingling and Reports other (Recurrent UTI) Neuro Denies behavioral changes, Denies vertigo, Denies dizziness, Denies headache(s), Denies loss of vision, Denies memory loss, Denies numbness and Denies tingling Psych Denies anxiety, Denies behavioral changes, Denies depression, Denies memory loss and Denies panic attacks Kevin/Lymph Denies easy bleeding and Denies easy bruising Aller/Immun Denies wheezing Physical exam (Primary Care) Tobacco/Smoking Status: Tobacco use Status Tobacco use date assessed 06/22/24 06/22/24 09:02 Patient Tobacco Use Status Never used Tobacco 06/22/24 09:02 Tobacco use type Cigarette 06/22/24 09:02 e-Cigarette/Vaping Use Never Used 06/22/24 09:02 Thrive Assessment: Date of Thrive Assessment Date Thrive assessed 06/08/24 06/22/24 09:02 Const Other: Telemedicine visit with real time audio video Received verbal consent given by patient for today's visit via telemedicine Physical examination is not performed as visit / consultation today is done over videoconference - Telehealth visit All physical findings indicated here, if present, are as per patient's and / or caregivers / proxy's report and visual inspection over videoconference, if appropriate or applicable Telehealth Telehealth Telehealth Platform: Telephone Location of provider rendering services: practice address Location of patient: address on file Patient Identification confirmed using: Name, : Yes Telehealth method: video (Android) Patient verbally consented to treatment: Yes Patient verbally consented to billing insurance company: Yes Patient informed of any privacy concerns related to visit: Yes Minutes spent on Phone/Video with Pt.: 35 Coding Level of Care Code TCM Mod MDM <= 7 Days Diagnoses Recurrent UTI N39.0 Seizure disorder G40.909 Time Spent (min) 43 Assessment & Plan Assessment & Plan (1) Recurrent UTI: Code(s): N39.0 - Urinary tract infection, site not specified Category: Medical Plan: Patient finished course of Levaquin in the hospital. Patient's daughter reported that she has been having some diarrhea after finishing the antibiotics. The patient daughter reports that she already spoke with Dr. Lebron about starting her mother on antibiotics long-term because she gets real sick with each UTI. Reports that Macrobid 50 mg was already ordered but has not been started as yet. Discussed with the daughter to allow the patient diarrhea to clear up before starting her on another antibiotic. The patient verbalized understanding. Urinalysis with reflex was ordered to be completed in 2 weeks. (2) Seizure disorder: Code(s): G40.909 - Epilepsy, unspecified, not intractable, without status epilepticus Category: Medical Plan: The patient's was noted in the ED to have a tonic-clonic seizure-like activity for about a minute. EEG showed sharp left temporal waves. The patient was started on Keppra 1000 mg b.i.d. per daughter, the patient only gets seizures when she is sick and once in a while, and does not think the patient should be on the medication technician terminal and repeater. She reports that this medication has caused the patient to be agitated and she has been cutting it down. She is currently giving her 500 mg once at bedtime and she is wondering if Dr. Lebron could discontinue this medication. Discussed with the patient that she should be having this conversation with the patient neurologist because if the patient is having negative effects from the medication, she could be tried on another medication instead. The patient verbalized understanding and said she will reach out into the neurologist. Orders: Orders UA CC w/rflx Micro + Cult 2 Weeks ANGELI Gregg N39.0 - Urinary tract infection, site not specified Medications: Changed From levetiracetam 1,000 mg PO BID 60 tabs 0RF To levetiracetam 500 mg PO BEDTIME David Rodarte DO
--- OUTSIDE RECORDS SUMMARY | 2024-06-22 09:30 | XMS_ITS ---
Author Organization [facility] Address [address] [place] [address] Care Team Providers Care Winder Contort Operator Name Role Phone Nicola Lebron Primary Care Provider Abigail Juarez [phone] REASON FOR VISIT rs appt 06/17/24 Encounters Encounter Location Date Provider Diagnosis [address] [address] 06/16/2024 Abigail Tavarez Plan Of Treatment Next Appt Details Provider Name:Abigail Tavarez , 09/27/2024 10:00:00 AM, [address] [place], [address], Progress Notes * Bautista AVERYOB: [birth year] (88 yo F)Acc No.[id number]:06/16/2024 Patient:?Nisreen AVERY :1935???Age:88 Y???Sex:Female Address:[address] [place] [address], [address] * true * Date:? Generated for Printi ng/Faconnorg/eTransmitting on:?06/22/2024 09:29 AM EDT
--- OUTSIDE RECORDS SUMMARY | 2024-06-22 09:30 | XMS_ITS ---
Author Organization [facility] Address [address] [place] [address] Care Team Providers Care Credit Specialist Name Role Phone Nicola Lebron Primary Care Provider Abigail Juarez [phone] Encounters Encounter Location Date Provider Diagnosis [facility] [address] [place] [address] 06/17/2024 Abigail Tavarez Plan Of Treatment Next Appt Details Provider Name:Abigail Tavarez , 09/27/2024 10:00:00 AM, [address] [place], [address], Progress Notes * Bautista AVERYOB: [birth year] (88 yo F)Acc No.[id number]:06/17/2024 Progress Note Patient:?Nisreen AVERY Provider:?Abigail Tavarez DPM :1935???Age:88 Y???Sex:Female D ate:06/17/2024 Address:[address] [place], [place] [address] Pcp:Nicola Lebron Subjective: * Chief Complaints: * ??? * Medical History:? Objective: * Vitals:? Assessment: Plan: * Treatment: * Images: * The named appointment provid er may or may not be the originator of this progress note, and it is not deemed complete until electronically signed by the appointment provider. Sign off status: Pending * Provider:?TRESSA AdanM Date:?2024 Generated for Eunice felipe/Tex/Eugene on:?06/22/2024 09:30 AM EDT
--- OUTSIDE RECORDS SUMMARY | 2024-06-22 09:30 | XMS_ITS | Patient Health Record ---
[facility] Address [address] [place] [address] Care Team Providers Care Warm In Name Role Phone Nicola Lebron Primary Care Provider Vern TavarezAbigail Unavailable [phone] Allergies Allergen (clinical drug ingredient) Drug/Non Drug [...] Status Risk Notes Problem Acquired hallux valgus (15796978) Hallux valgus (acquired), left foot (M20.12) Active confirmed Problem Acquired hallux valgus (57455923) Hallux valgus (acquired), right foot (M20.11) Active confirmed Problem Ulcer of toe (686936141) 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 skin (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) Active confirmed Worse Problem Ulcer of toe (374006586) Non-pressure chronic ulcer of other part of right foot limited to breakdown of skin (L97.511) Active confirmed Problem Acquired hammer toe of right foot (8932435326186402) Other hammer toe(s) (acquired), right foot (M20.41) Active confirmed Problem Acquired hammer toe of left foot (1151739493440552) Other hammer toe(s) (acquired), left foot (M20.42) Active confirmed Problem Hammer toe (958322364) Hammer toe of right foot (M20.41) Active confirmed Problem 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 (963924746235557) 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, with unspecified presence of clinical manifestation (I70.203) Active confirmed Q7(A), Q8(2B), Q9(1B,2 C) Problem Plantarflexion deformity of foot (510060505) 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 confirmed Problem Essential hypertension (73778956) Essential hypertension (I10) Active confirmed Vital Signs Blood pressure diastolic 78 mm Hg 03/23/2024 Height 5 ft 7 in in 03/23/2024 Blood pressure systolic 104 mm Hg 03/23/2024 Weight 198 lbs 03/23/2024 BMI 31.01 kg/m2 03/23/2024 Procedures Procedure Date Ordered Date Performed Result Body Sit e 94359-HQASZSW NAIL, 6 OR MORE 09/04/2023 N/A 40163- Debride <25 sq cm 09/04/2023 N/A 89508-YQTEWNY NAIL, 6 OR MORE 12/11/2023 N/A 80556-Hdsmtyyj Plate 12/11/2023 N/A 67925- Debride <25 sq cm 12/11/2023 N/A 06512-ICMYLEM NAIL, 6 OR MORE 03/23/2024 N/A 05603-KJEI SKIN LESIONS, OVER 4 03/23/2024 N/A Encounters Encounter Location Date Provider Diagnosis [address] [address] 09/04/2023 Abigail Black Tinea unguium B35.1 ; 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 skin L97.521 ; Pain in right toe(s) M79.674 ; Pain in left toe(s) M79.675 and Edema, lower extremity R60.[address] [address] 12/11/2023 Abigail Black Tinea unguium B35.1 ; 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 skin L97.521 ; Pain in right toe(s) M79.674 ; Pain in left toe(s) M79.675 and Ingrown nail L60.[address] [address] 03/23/2024 Abigail Black Xerosis of skin L85. 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, with unspecified presence of clinical manifestation I70.203 ; Tinea unguium B35.1 ; Pain in right toe(s) M79.674 and Pain in left toe(s) M79.675 [facility] [address] [address] 03/04/2024 Abigail Black [facility] [place] [address] [place] [address] 06/16/2024 Abigail Corby Assessments Encounter Date Diagnosis (ICD Code) Assessment Notes Treatment Notes Treatment Clinical Notes Section Notes 09/04/2023 Tinea unguium (ICD-10 - B35.1) 12/11/2023 Tinea unguium (ICD-10 - B35.1) 12/11/2023 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 skin (ICD-10 - L97.521) Worse 03/23/2024 Xerosis of skin (ICD-10 - L85.3) 03/23/2024 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, with unspecified presence of clinical manifestation (ICD-10 - I70.203) Q7(A), Q8(2B), Q9(1B,2C) 03/23/2024 Tinea unguium (ICD-10 - B35.1) 12/11/2023 Pain in right toe(s) (ICD-10 - M79.674) 09/04/2023 Pain in right toe(s) (ICD-10 - M79.674) 09/04/2023 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 skin (ICD-10 - L97.521) Response to treatment - Unresolved 09/04/2023 Pain in left toe(s) (ICD-10 - M79.675) 12/11/2023 Pain in left toe(s) (ICD-10 - M79.675) 03/23/2024 Pain in right toe(s) (ICD-10 - M79.674) 03/23/2024 Pain in left toe(s) (ICD-10 - M79.675) 12/11/2023 Ingrown nail (ICD-10 - L60.0) 09/04/2023 Edema, lower extremity (ICD-10 - R60.0) Plan Of Treatment Pending Test Test Name Order Date 51595-ZGFEYQE NAIL, 6 OR MORE 10/18/2019 96705-UOUYMKD NAIL, 6 OR MORE 12/27/2019 22073-BRTCNUK NAIL, 6 OR MORE 03/13/2020 05139-SSMYWJC NAIL, 6 OR MORE 07/13/2020 66002-HMAAEGL NAIL, 6 OR MORE 10/16/2020 43863-GFMJHPV NAIL, 6 OR MORE 02/05/2021 73530-GNHJQWY NAIL, 6 OR MORE 07/19/2021 51139-DRNEZGU NAIL, 6 OR MORE 10/18/2021 38934-KQMGWNV NAIL, 6 OR MORE 01/21/2022 25692-FLDZUDO NAIL, 6 OR MORE 04/29/2022 07925-OMUQDXQ NAIL, 6 OR MORE 07/08/2022 67437-KMNIMSO NAIL, 6 OR MORE 09/16/2022 97817-RWDKQVY NAIL, 6 OR MORE 12/02/2022 71422-FVMQNTY NAIL, 6 OR MORE 02/24/2023 76808-EJTRQPP NAIL, 6 OR MORE 06/02/2023 95492-YEQKAOS NAIL, 6 OR MORE 09/04/2023 96489-MOFWGSU NAIL, 6 OR MORE 12/11/2023 80055-DBPHKMR NAIL, 6 OR MORE 03/23/2024 56192-Zmlqkiyo Plate 12/11/2023 88667-Wfiyrfiv Plate 09/16/2022 77935-Tsqprsho Plate 06/02/2023 58622-Hpfridzk Plate 07/19/2021 04897-Rtnzhcip Plate 10/18/2021 57104-Xxdpjgxq Plate 07/13/2020 73330-Kdoordla Plate 02/05/2021 14127-Twyksjwx Plate 10/18/2019 15481- Debride <25 sq cm 10/18/2019 68394- Debride <25 sq cm 12/27/2019 49352- Debride <25 sq cm 07/13/2020 70317- Debride <25 sq cm 03/13/2020 80557- Debride <25 sq cm 07/19/2021 03400- Debride <25 sq cm 02/05/2021 16612- Debride <25 sq cm 10/18/2021 87722- Debride <25 sq cm 04/29/2022 70051- Debride <25 sq cm 01/21/2022 82206- Debride <25 sq cm 02/24/2023 11169- Debride <25 sq cm 12/02/2022 46048- Debride <25 sq cm 09/16/2022 76086- Debride <25 sq cm 07/08/2022 72077- Debride <25 sq cm 06/02/2023 88155- Debride <25 sq cm 12/11/2023 23961- Debride <25 sq cm 09/04/2023 63545 I&D ABSCESS- SIMPLE,SINGLE 021 12930-FIKK SKIN LESIONS, OVER 4 03/23/20 24 Next Appt Details Provider Name:Abigail Tavarez , 09/27/2024 10:00:00 AM, [address] [place] [address], [address], Insurance Providers Payer Name Payer Address Payer Phone Subscriber Number Group Number Insured Name Patient Relationship to Insured Coverage Start Date Coverage End Date [facility] Adv [address] [place] [id number] [phone] [id number] Nisreen Melchor Self - patient is the insured Medical (General) History Medical History History ICD Code Anxiety Arthritis Back,Hip,and Knee pain Cholesterol High blood pressure Joint implants/screws Transfusions Surgical History Surgery Date(Month/Year) wrist surgery hysterectomy
--- OUTSIDE RECORDS SUMMARY | 2024-06-22 09:30 | XMS_ITS ---
Author Organization [facility] Address [address] [place] [address] Care Team Providers Care Electrical Line Mechanic Name Role Phone Nicola Lebron Primary Care Provider Abigail Juarez [phone] Figueroa Encounters Encounter Location Date Provider Diagnosis [facility] [address] [place] [address] 03/29/2024 Abigail Tavarez Plan Of Treatment Next Appt Details Provider Name:Abigail A Corby , 09/27/2024 10:00:00 AM, [address] [place], [address], Progress Notes * June AVERYireDOB: [birth year] (88 yo F)Acc No.[id number]:03/29/2024 Progress Note Patient:?Nisreen AVERY Provider:?Abigail Tavarez DPM :1935???Age:88 Y???Sex:Female D ate:03/29/2024 Address:[address] [place], [place] [address] Pcp:Nicola Lebron Subjective: * Chief Complaints: * [...] Tavarez DPM Date:?2024 Generated for Eunice felipe/Tex/Eugene on:?06/22/2024 09:30 AM EDT
== END 2024-06-22 10:18 | disposition home or self-care (01) ==
LOC: HO.HMCH 08:54
PROVIDERS: PCP Internal Medicine
DX: N39.0 Urinary tract infection, site not specified (principal); G40.909 Epilepsy, unspecified, not intractable, without status epilepticus

== ENCOUNTER → 2024-06-22 08:54 | Outpatient (BNVA) | payer OTHER, SELFPAY | PROVIDERS: PCP Internal Medicine | DX: N39.0 Urinary tract infection, site not specified (principal); G40.909 Epilepsy, unspecified, not intractable, without status epilepticus | CPT/HCPCS: 99495 ==

== ENCOUNTER 2024-07-14 11:12 | Outpatient (REF) | payer OTHER, SELFPAY ==
[2024-07-14 11:23] LABS: Appearance Urine Clear; Color Urine Yellow; Glucose Urine UA Negative (Negative); Leukocyte Esterase Urine Trace (Negative); Nitrite Urine Negative (Negative); UMIC TRIGGER UACC YES; Urine Blood Negative (Negative); Urine Ketones Negative (Negative); Urine Protein Negative (Neg-Trace)
[2024-07-14 11:59] LABS: Bacteria Urine None Seen (None Seen); Hyaline Casts Urine 0-2 /LPF (0-2); RBC Urine 0-2 /HPF (0-2); Squamous Epithelial Cell Urine 0-2 /HPF (0-2); WBC Urine 0-5 /HPF (0-5)
--- OUTSIDE RECORDS SUMMARY | 2024-07-14 13:32 | XMS_ITS | Clinical Summary ---
Author Organization [employer] Address [address] [facility] [address] [place] [address] Care Team Providers Care Bank Runner Name Role Phone Unavailable Primary Care Provider [...] patient's age to complete this topic Insurance [facility]
== END 2024-07-14 11:13 | disposition home or self-care (01) ==
LOC: HO.LNP 11:12
PROVIDERS: Internal Medicine
DX: N39.0 Urinary tract infection, site not specified (principal)
CPT/HCPCS: 81001

== ENCOUNTER 2024-07-30 09:32 | Outpatient (REF) | payer OTHER, SELFPAY ==
[2024-07-31 11:24] LABS: Leukocytes Stool Qualitative NEGATIVE (NEGATIVE)
[2024-07-31 12:14] LABS: CDIFF Internal ctrl Dots and bkg OK (V); CDiff Toxin Negative (Negative)
[2024-07-31 12:16] LABS: CDiff Gene PCR POSITIVE (Negative)
== END 2024-07-30 09:33 | disposition home or self-care (01) ==
LOC: HO.LNP 09:32
PROVIDERS: Visit Provider Internal Medicine
DX: R19.7 Diarrhea, unspecified (principal)
CPT/HCPCS: 87324; 87493; 89055

== ENCOUNTER 2024-08-13 19:00 | Inpatient (IN) | payer OTHER, SELFPAY ==
[2024-08-13] VITALS (19 sets, daily range): BP systolic 102–175; BP diastolic 36–117; PULSE 76–121; RESP 13–23; TEMP 36.8–37.3; O2SAT 90–100; BMI 35.5
--- NOTE | ~2024-08-13 | US_ITS ---
CLINICAL HISTORY: UTI with septic shock, ?hydronephrosis US renal with Color Doppler Comparison: CT/SR - CT ABDOMEN PELVIS WO IV CON - 04/02/24 13:53 EST Findings: Right kidney normal size and echotexture, 8.5 cm length. No hydronephrosis calculus or mass. Normal color flow. Dominant renal cortical cyst measuring 2.6 x 2.0 x 2.7 cm midpole appears simple. Left kidney normal size and echotexture, 9.9 cm length. No hydronephrosis or nephrolithiasis. Normal color flow. Parapelvic cysts midpole with probable minimal debris measures 1.4 x 1.1 x 1.0 cm. Impression: 1. No nephrolithiasis or hydronephrosis demonstrated. Benign renal cortical cyst on the right. Parapelvic cyst with probable debris left kidney. Decompressed urinary bladder with [place]. This document has been electronically signed by: Mahesh Wei MD on 08/14/2024 11:24:34
--- NOTE | ~2024-08-13 | CT_ITS ---
CLINICAL HISTORY: Stroke Protocol --- Additional Notes or Special Instructions: right sided weakness CT HEAD WITHOUT CONTRAST Comparison: CT/ID/SR - CT ANGIO HEAD NECK STROKE - 06/07/24 12:31 EDT Findings: There is motion artifact. No acute intracranial hemorrhage, extra-axial fluid collection, hydrocephalus or midline shift. Age appropriate generalized parenchymal atrophy. There are periventricular and subcortical white matter hypodensities which are most likely related to microangiopathic gliosis. Intracranial arteriosclerosis. No evidence for acute large territorial infarct. No sinus or mastoid fluid. Visualized orbits: Bilateral aphakia. There is no acute fracture. Hyperostosis frontalis interna. IMPRESSION: 1. Motion affected study. 2. No acute intracranial process. This document has been electronically signed by: Adrianna Guerrero DO on 08/13/2024 19:41:43
--- NOTE | ~2024-08-13 | XR_ITS ---
CLINICAL HISTORY: sob Chest Radiographs, AP Comparison: 06/07/24 Findings: No cardiomegaly. Normal mediastinal contours. No pneumothorax. No opacity. No pleural effusion. Normal upper abdomen. No acute fracture. Impression: No acute findings. This document has been electronically signed by: Angie Gomez MD on 08/13/2024 22:10:17
--- NOTE | ~2024-08-13 | MR_ITS ---
CLINICAL HISTORY: stroke post tpa Limited study due to pt motion throughout exam. Best possible imag es obtained. MR Brain without gadolinium Comparison: CT/SR - CT HEAD/BRAIN WO IV CON - 08/13/24 21:49 EDT MR - MR HEAD/BRAIN WO/W CON - 06/08/24 17:22 EDT Findings: There is motion artifact on multiple sequences. No restricted diffusion. No hemorrhage. Periventricular and subcortical T2 white matter hyperintensities likely chronic small-vessel ischemic changes. No midline shift. No hydrocephalus. Vascular flow voids are intact. The orbits are normal. The sinuses and mastoid air cells are clear. No focal bone lesion. IMPRESSION: No acute infarct or hemorrhage. This document has been electronically signed by: Eyad Mensah MD on 08/14/2024 21:38:02
--- NOTE | ~2024-08-13 | CT_ITS ---
CLINICAL HISTORY: bleed - PT UNABLE TO HOLD STILL, BEST POSSIBLE IMAGES AT THIS TIME CT head without contrast Comparison: CT/SR - CT ANGIO HEAD NECK STROKE - 08/13/24 19:[address] - CT ANGIO HEAD NECK STROKE - 08/13/24 19:[address]/SR - CT HEAD FOR STROKE - 08/13/24 19:06 EDT MR - MR HEAD/BRAIN WO/W CON - 06/08/24 17:[address]/IN/SR - CT HEAD FOR STROKE - 06/07/24 12:21 EDT Findings: Motion limited exam. No acute hemorrhage. No extra-axial fluid collection. No hydrocephalus, mass-effect or herniation. [place]-white differentiation is maintained. There is patchy hypoattenuation of the periventricular and deep white matter, which is most likely the sequela of moderate to severe chronic small vessel ischemic disease and is similar to the prior studies. No acute orbital pathology. No acute soft tissue abnormality. No fracture. The visualized paranasal sinuses are predominantly clear. The mastoid air cells are clear. Impression: No acute findings. This document has been electronically signed by: Angie Gomez MD on 08/13/2024 22:41:51
--- NOTE | ~2024-08-13 | CT_ITS ---
CLINICAL HISTORY: Stroke Protocol CT ANGIOGRAPHY HEAD AND NECK WITH CONTRAST. 3D POSTPROCESSING. Comparison: CT/SR - CT HEAD FOR STROKE - 08/13/24 19:[address]/MT/SR - CT ANGIO HEAD NECK STROKE - 06/07/24 12:31 EDT Findings: Significant motion artifact limits evaluation. Atherosclerotic changes in the aortic arch which demonstrates variant anatomy and grossly patent branch origins. The left vertebral artery arises directly from the arch. No vertebral artery occlusion. Extracranial carotid arteries appear patent with no occlusion or flow-limiting stenosis. Grossly patent intracranial carotid arteries. Grossly patent vertebrobasilar system and cerebellar arteries. Grossly patent cerebral arteries. Limited evaluation for aneurysm. No abnormal intracranial enhancement. Nodular appearing thyroid gland. Scarring in the included lungs. Cervical spondylosis. IMPRESSION: 1. Image degradation secondary to significant motion artifact. 2. No definite large vessel occlusion or flow-limiting stenosis. This document has been electronically signed by: Adrianna Guerrero DO on 08/13/2024 20:05:02
--- NOTE | 2024-08-13 19:05 | ECG_ITS ---
Test Reason : STROKE Blood Pressure : */* mmHG Vent. Rate : 104 BPM Atrial Rate : 104 BPM P-R Int : 164 ms QRS Dur : 136 ms QT Int : 372 ms P-R-T Axes : 54 42 19 degrees QTcB Int : 489 ms Poor data quality Sinus tachycardia with occasional Premature ventricular complexes Right bundle branch block Possible Inferior infarct (cited on or before 24-Jun-2014) T wave abnormality, consider lateral ischemia Abnormal ECG When compared with ECG of 07-Jun-2024 13:07, Premature ventricular complexes are now Present Referred By: Tricia Johns Electronically Signed By: Andrew Gannon
[2024-08-13 19:18] LABS: Glucose, Whole Blood 104 mg/dL (60-115)
--- NOTE | 2024-08-13 19:22 | MHC.EDTECH ---
Addendum entered by Virgil Bella 08/13/24 20:01: Formal INR specimen sent to lab ,Provider aware . Original Note: unable to do a stroke INR ,because machine was not working .
[2024-08-13] MEDS: Tenecteplase 50 MG/10 ML KIT 23 MG IVPUSH (19:27)
[2024-08-13] MEDS: iohexoL 350 MG/ML 100 ML INFUS..BTL 70 ML IV (19:27)
[2024-08-13 19:32] LABS: Partial Thromboplastin Time 28.2 SEC (26.0-36.8)
--- NOTE | 2024-08-13 19:32 | ED.NEUROSD ---
HPI - Neuro Symptoms/Deficit General Chief Complaint: Stroke Stated Complaint: possible stroke alert Time Seen by Provider: 08/13/24 19:07 History of Present Illness HPI Narrative: Patient is an 88-year-old female presented today with having last known well time of approximately 15:00. Daughter was talking to her at the time. Approximately hour prior to arrival patient was noted to have difficulty with her speech. Has right-sided facial droop has neglect as noted by EMS. Weakness to the right upper extremity can not lift up against gravity. Patient's sugar was noted to be greater than 100. She was sent in for further emergent evaluation. A stroke alert was called prior to patient's arrival. She has history of TIA. I reviewed patient's chart there was no history of focal weakness. Patient was able to speak during her last admission. Related Data Home Medications ?Medication ?Instructions ?Recorded ?Confirmed acetaminophen 500 mg tablet 1,000 mg PO Q6H PRN Pain 02/02/20 08/13/24 (Tylenol Extra Strength) cholecalciferol (vitamin D3) 50 50 mcg PO DAILY 12/22/23 08/13/24 mcg (2,000 unit) tablet (Vitamin D3) cyanocobalamin (vitamin B-12) 1,000 mcg PO MO 12/22/23 08/13/24 1,000 mcg tablet (Vitamin B-12) mirtazapine 7.5 mg tablet 7.5 mg PO BEDTIME PRN Sleep 12/22/23 08/13/24 nystatin 100,000 unit/gram topical 1 appl topical DAILY PRN Fungal 12/22/23 08/13/24 powder Infection estradiol 0.01% (0.1 mg/gram) 1 g vaginal TUTH 06/07/24 08/13/24 vaginal cream fluticasone propionate 50 1 spray intranasal DAILY PRN 06/07/24 08/13/24 mcg/actuation nasal Allergy Symptoms spray,suspension lamotrigine 25 mg tablet 25 mg PO DAILY 08/13/24 08/13/24 solifenacin 5 mg tablet 5 mg PO DAILY 08/13/24 08/13/24 Previous Rx's ?Medication ?Instructions ?Recorded BATH AND SHOWER STEP WITH HANDLE #1 ea 04/10/23 EASY RISE WALKER #1 ea 04/10/23 PAIN RELIEVING PATCHES WITH HEAT #60 ea 04/29/23 Contour plus bladder pads #3 ea 08/06/23 Pad liners for bed and chair #6 ea 08/06/23 gloves #1 ea 08/06/23 gloves #1 ea 08/06/23 underwear pull ups 3 per day #6 ea 08/06/23 flushable toilet wipes #5 ea 09/17/23 reclining lift chair. #1 ea 02/03/24 aspirin 81 mg tablet,delayed 81 mg PO DAILY #90 tabs 03/12/24 release omeprazole 20 mg capsule,delayed 20 mg PO DAILY@0630 #90 caps 03/12/24 release pravastatin 20 mg tablet 20 mg PO DAILY #90 tabs 03/12/24 losartan 25 mg tablet 25 mg PO DAILY #30 tabs 06/23/24 albuterol sulfate 90 mcg/actuation 1 inh inhalation QID PRN shortness 07/24/24 aerosol inhaler of breath or wheezing #8.5 grams Disposable liners/shield/[id number] #312 ea 07/30/24 vancomycin 125 mg capsule 125 mg PO QID 10 days #40 caps 08/01/24 Disposable liner/shield/pad #312 ea 08/11/24 Allergies Allergy/AdvReac Type Severity Reaction Status Date / Time lisinopril Allergy Unknown cough Verified 08/13/24 19:34 Amlodipine AdvReac Intermediate Leg Uncoded 08/13/24 19:34 swelling Review of Systems Review of Systems: Patient unable to provide detailed review of systems due to her mental status and her speech difficulties PMFSH Past Medical History Attestation statement: The following information was validated with the patient. Medical History Recurrent UTI Altered mental status Acute encephalopathy Bilateral arm pain Osteoarthritis of knees, bilateral TIA (transient ischemic attack) Seizure disorder Knee osteoarthritis Urinary incontinence GERD (gastroesophageal reflux disease) COPD (chronic obstructive pulmonary disease) Obesity (BMI 30-39.9) Hypertension UTI (urinary tract infection) Hypertriglyceridemia Impaired glucose tolerance Vitamin D deficiency Surgical History H/O oophorectomy History of abdominal hysterectomy History of bilateral cataract extraction H/O left wrist surgery Family History Family History Father No problems noted. Mother Past heart attack Sister Diabetes Brother Prostate cancer Social History Social History Household Members: Children Housing: Unknown / Unable to assess Alcohol intake: never Comment: Family in room, pt may need sitter for noc Patient Tobacco Use Status: Never used Tobacco Tobacco use type: Cigarette e-Cigarette/Vaping Use: Never Used Second Hand Smoke Exposure: No Advance Directives: Yes Advance Directives on File: Yes Advance Directives Date on File: 12/23/23 service: No Current occupational status: retired Cognitive needs: Yes (cane, walker) Hearing needs: No Vision needs: Yes (glasses) Physical Exam Vital Signs: Vital Signs: Last Vital Signs Temp 98.7 F 08/13/24 21:16 Pulse 97 08/13/24 21:31 Resp 22 H 08/13/24 21:31 BP 126/78 08/13/24 21:31 Pulse Ox 94 08/13/24 21:31 O2 Del Method Room Air 08/13/24 21:31 O2 Flow Rate 2 08/13/24 20:06 BMI result Body Mass Index 35.5 Appearance: Alert. Oriented X self. No acute distress. Eyes: Pupils equal, round and reactive to light. ENT: Pharynx normal. Neck: Normal inspection. Neck supple. No lymph nodes noted. No crepitus CVS: Normal heart rate and rhythm. Pulses normal. Normal S1 and S2 Respiratory: No respiratory distress. Breath sounds normal. No Wheezing. No rales Abdomen: Soft and nontender. No rigidity. No distention. good BS x4 Skin: Skin warm and dry. Normal skin color. Normal skin turgor. Extremities: No lower extremity edema. Neurovascular intact to all extremities. No Lacerations. No Rash Neuro: Oriented X self there is right-sided neglect. There is right facial droop. Right upper extremity was extremely weak unable lift up against gravity. There is bilateral lower extremity weakness. Left upper extremity has good hand grasp. Medications Administered Discontinued Medications Generic Name Dose Route Start Last Admin Trade Name Freq PRN Reason Stop Dose Admin Diazepam 5 mg 08/13/24 21:15 08/13/24 19:50 Diazepam 10 Mg/2 Ml Cartridge IVPUSH 08/13/24 21:16 5 mg STAT STA Administration Phenytoin Sodium 1,000 mg/ 120 mls @ 100 mls/hr 08/13/24 19:47 08/13/24 20:05 Sodium Chloride IV 08/13/24 20:58 Not Given ONCE ONE Phenytoin Sodium 1,000 mg/ 120 mls @ 100 mls/hr 08/13/24 20:00 08/13/24 21:09 Sodium Chloride IV 08/13/24 21:11 Infused ONCE ONE Infusion Iohexol 70 ml 08/13/24 19:26 08/13/24 19:27 Iohexol 350 Mg/Ml 100 Ml Infus..Btl IV 08/13/24 19:27 70 ml ONCE ONE Administration Tenecteplase 23 mg 08/13/24 19:22 08/13/24 19:27 Tenecteplase 50 Mg/10 Ml Kit IVPUSH 08/13/24 19:23 23 mg ONCE ONE Administration Medical Decision Making Medical Decision Making MDM Narrative: Patient's sugar was noted to be over 100 there is no evidence of hypoglycemia. A stroke alert was called immediately. We rushed patient to CT scanner. I reviewed patient's CT head my interpretation of the CT showed no acute bleeding. CTA was also being done. Patient is taken back to her room. Her NIH stroke scale is greater than 10. I repeated the scale. It is approximately the same. Case was discussed with the neurologist. Dr. Albarran. Agreed patient is a good candidate for tPA. Patient's last known well time is proximally 15:00. We were able to get the medication in at 07:27 p.m. After patient was given tPA patient had an episode of tonic clonic seizure. Will give patient additional Valium 5 mg. Has a history of seizures in the past. We also loaded patient with Dilantin there is a question history of issues with Keppra. The ICU team was notified. Patient to be admitted. Currently in critical condition. Because of the seizure. A repeat CT scan of the head was ordered to rule out the possibility of bleed as patient already received TNK. Patient became more agitated requiring additional sedation. Additional 2.5 mg of Valium was ordered. When appropriate will try to get a repeat CT scan. Differential Diagnosis Differential Diagnoses: The differential diagnosis associated with the presentation includes Hypoglycemia, intracranial bleed, CVA. Admission/Observation Consideration of admission/observation: Escalation of care including admission/observation considered Will require admission to the intensive care unit Consult Healthcare Provider Management of the patient was discussed with: Hardboard Panel Printer (Phlebotomy Services Technician, neurologist) Lab Data MDM Lab Attestation statement: I reviewed the patient's lab results. 08/13/24 20:38 08/13/24 20:34 Labs: Lab Results 08/13/24 08/13/24 08/13/24 Range/Units 19:12 19:16 20:34 WBC (4.8-10.8) X10*3/uL RBC (4.20-5.50) X10*6/uL Hgb (12.0-16.0) g/dl Hct (37.0-47.0) % MCV (80.0-98.0) fL MCH (27.0-33.0) pg MCHC (31.0-35.0) g/dl RDW (11.0-16.0) % Plt Count (160-400) X10*3/uL MPV (9.4-12.3) fL Immature Gran % (Auto) (0.0-0.4) % Neut % (Auto) (45-73) % Lymph % (Auto) (20-40) % [place] % (Auto) (2-11) % Eos % (Auto) (0-4) % Baso % (Auto) (0-2) % Lymph # (Auto) (1.2-4.9) X10*3/uL [place] # (Auto) (0.1-1.2) X10*3/uL Eos # (Auto) (0.0-0.4) X10*3/uL Baso # (Auto) (0.0-0.2) X10*3/uL Abs Immat Gran (auto) (0.00-0.03) X10*3/uL Absolute Neuts (auto) (2.0-8.3) x10*3/uL Absolute Nucleated RBC (0.0-0.012) X10*3/uL Nucleated RBC % (auto) (0.0-0.2) /100WBC PT 12.0 (10.9-12.4) SEC INR 1.0 (0.9-1.1) APTT 28.2 (26.0-36.8) SEC POC Glucose 104 (60-115) mg/dL Troponin I High Sens 3.9 (<3.5-17.0) ng/L 08/13/24 Range/Units 20:38 WBC 10.7 (4.8-10.8) X10*3/uL RBC 4.56 (4.20-5.50) X10*6/uL Hgb 13.7 D (12.0-16.0) g/dl Hct 41.1 (37.0-47.0) % MCV 90.1 (80.0-98.0) fL MCH 30.0 (27.0-33.0) pg MCHC 33.3 (31.0-35.0) g/dl RDW 12.7 (11.0-16.0) % Plt Count 175 (160-400) X10*3/uL MPV 10.8 (9.4-12.3) fL Immature Gran % (Auto) 0.6 H (0.0-0.4) % Neut % (Auto) 71.8 (45-73) % Lymph % (Auto) 21.1 (20-40) % [place] % (Auto) 5.7 (2-11) % Eos % (Auto) 0.3 (0-4) % Baso % (Auto) 0.5 (0-2) % Lymph # (Auto) 2.3 (1.2-4.9) X10*3/uL [place] # (Auto) 0.6 (0.1-1.2) X10*3/uL Eos # (Auto) 0.0 (0.0-0.4) X10*3/uL Baso # (Auto) 0.1 (0.0-0.2) X10*3/uL Abs Immat Gran (auto) 0.06 H (0.00-0.03) X10*3/uL Absolute Neuts (auto) 7.7 (2.0-8.3) x10*3/uL Absolute Nucleated RBC 0.000 (0.0-0.012) X10*3/uL Nucleated RBC % (auto) 0.0 (0.0-0.2) /100WBC PT (10.9-12.4) SEC INR (0.9-1.1) APTT (26.0-36.8) SEC POC Glucose (60-115) mg/dL Troponin I High Sens (<3.5-17.0) ng/L Independent Interpretation I performed an independent interpretation of an: CT Scan (My interpretation patient's CT head was grossly negative for any acute evidence of bleeding.) Radiology Impression Discussion of test interpretation with radiology: I discussed test interpretation with the radiologist and I have reviewed the radiologist's reading. Independent Historian Clinical information obtained from an independent historian. History obtained from or confirmed by: EMS (Additional history obtained from EMS. Also discussed the case with patient's family verify that the symptoms last normal was 15:00. Patient not on blood thinners. No history of severe weakness on the right side) and Other External Record Review External record reviewed: Inpatient record (previous hospitalization for encephalopathy reviewed) Chronic Conditions C diff colitis NIH Stroke Scale Internal: Initial- Upon Arrival Time: 19:34 Level of Consciousness: Alert Level of Consciousness Questions: Answers one question correctly Level of Consciousness Commands: Performs one task correctly Best Gaze: Forced deviation Visual: Partial hemianopia Facial Palsy: Partial paralysis Motor Arm (Right): No effort against gravity Motor Arm (Left): No drift Motor Leg (Right): Some effort against gravity Motor Leg (Left): Some effort against gravity Limb Ataxia: Present in one limb Sensory: Normal Best Language: Severe aphasia Dysarthia: Severe dysarthria Extinction and Inattention: No abnormality Score: 19 Critical Care Time Critical Care Time Critical Care Time: Yes Total Critical Care Time: 40 Attestation: I have personally provided 40 minutes of critical care time exclusive of time spent on separately billable procedures. ?Time includes review of lab data, radiology results, discussion with consultants, and monitoring for potential decompensation. ?Interventions were performed as documented above Discharge Plan Discharge Clinical Impression: Acute CVA (cerebrovascular accident) Patient Disposition: Admitted As Inpatient
[2024-08-13 19:34] LABS: Stroke Lab Use COMPLETE
[2024-08-13] MEDS: diazePAM 10 MG/2 ML CARTRIDGE 5 MG IVPUSH (19:50)
--- NOTE | 2024-08-13 19:52 | PC.NURSE ---
patient noticed to be seizing. provider at bedside. order for 5mg IV Valium verbally stated and pulled, administered to patient. patient seizure stooped, sleeping now. family at bedside anf updated by MD. plan for ICU. waiting for IV Dilantin to be brought down by pharmacy for administrating.
[2024-08-13 20:42] LABS: MANUAL DIFF FLAG NO
[2024-08-13 20:43] LABS: Basophils Absolute Auto 0.1 X10*3/uL (0.0-0.2); Basophils Percent Auto 0.5 % (0-2); Eosinophils Percent Auto 0.3 % (0-4); Hematocrit 41.1 % (37.0-47.0); Hemoglobin 13.7 g/dl (12.0-16.0); Imm Gran Abs Auto 0.06 X10*3/uL (0.00-0.03); Imm Gran Pct Auto 0.6 % (0.0-0.4); Lymphocytes Absolute Auto 2.3 X10*3/uL (1.2-4.9); Lymphocytes Percent Auto 21.1 % (20-40); Mean Corpuscular HGB Conc 33.3 g/dl (31.0-35.0); Mean Corpuscular Volume 90.1 fL (80.0-98.0); Mean Platelet Volume 10.8 fL (9.4-12.3); Monocytes Absolute Auto 0.6 X10*3/uL (0.1-1.2); Monocytes Percent Auto 5.7 % (2-11); Neutrophils Absolute Auto 7.7 x10*3/uL (2.0-8.3); Neutrophils Percent Auto 71.8 % (45-73); Platelet Count 175 X10*3/uL (160-400); Red Blood Count 4.56 X10*6/uL (4.20-5.50); Red Cell Distribution Width 12.7 % (11.0-16.0); White Blood Count 10.7 X10*3/uL (4.8-10.8)
[2024-08-13 21:07] LABS: Troponin-I High Sensitivity 3.9 ng/L (<3.5-17.0)
--- NOTE | 2024-08-13 21:24 | MHC.EDTECH ---
Patient was biba from home ,ekg taken and was read by Provider ,blood drawn and sent to lab ,rsv/covid swab collected all sent to lab .Patient was soiled with stool and urine ,care given and bedding change ,Patient was hooked up to cardiac cath tech ,family member at bedside .
--- NOTE | 2024-08-13 21:35 | PHA.MEDREC ---
Addendum entered by Kori Kaminski RPh 08/13/24 21:54: Reviewed by [facility] Original Note: Pharmacy Consult ? Medication Reconciliation Pharmacy has completed the medication reconciliation. Spoke to patients daughter at bedside to confirm med list. Daughter states patient is no longer taking Ketoconazole 2% cream, Depakote 250 mg, Keppra 1,000 mg ( patient changed to Lamotrigine 25 mg). Daughter states patient has 2 days left of Vancomycin 125 mg QID. Patient had all her morning medications today.
[2024-08-13] MEDS: diazePAM 10 MG/2 ML CARTRIDGE 2.5 MG IVPUSH (21:41)
--- NOTE | 2024-08-13 21:46 | PC.NURSE ---
patient given additional dose of Valium for CT scan. became restless. patient is moving all extremities. not able to follows commands to assess strength. right side of mouth appears with droop. patient not speaking any words but making groaning noises.
--- NOTE | 2024-08-13 22:02 | MHC.EDTECH ---
MARGARITA Jorge said not to draw Patient lab now because ,Patient is Being Transported to ICU .
[2024-08-13] MEDS: 0.9 % Sodium Chloride Flush 3 ML SYRINGE IVFLUSH (22:20)
[2024-08-13 22:30] LABS: Anion Gap 21 (12-20); Blood Urea Nitrogen 14 mg/dL (9-16); Calcium 9.3 mg/dL (8.4-10.2); Carbon Dioxide 15 mmol/L (22-29); Chloride 111 mmol/L (96-108); Cholesterol 151 mg/dL (<200); Creatinine Clr Calc Pharmacy 57.5; Estimated Glomerular Filt Rate > 60; Glucose Random 157 mg/dL (60-115); HDL Cholesterol 58 mg/dL (>40); LDL Cholesterol Calculated 69 mg/dL (<100); Potassium 5.1 mmol/L (3.3-5.1); Sodium 142 mmol/L (135-145); Triglycerides 123 mg/dL (<150)
[2024-08-13] MEDS: Midazolam HCl 2 MG/2 ML VIAL IVPUSH (22:30)
--- NOTE | 2024-08-13 22:39 | PM.CCHP ---
History of Present Illness Date of Service: 08/13/24 Attending physician on admission: Troy Falcon Chief Complaint: stroke post TNK, Sz 88-year-old female with underlying history of recurrent UTIs, C diff colitis for which she is still on treatment, prior TIAs, seizure disorder recently placed on Lamictal, GERD, COPD not O2 dependent, hypertension, hyperlipidemia, vitamin-D deficiency among others. ?Patient presented to the emergency room via EMS.? Last well known time was 03:00 in the afternoon however approximately 18:00 the patient was noted to have difficulties speaking, right-sided droop and right-sided neglect was noted by EMS.? She also developed weakness of the right upper extremity as she could not lift this against gravity.? Initial vital signs were unremarkable with a blood sugar greater than 100.? ER physician exam corroborates the above right-sided neglect, right upper extremity weakness Drug facial droop. Images from the emergency room revealed a head CT affected by motion, no acute intracranial process.? Head and neck CT angiogram revealed no definite large vessel occlusion or flow-limiting stenosis. ?Case has been discussed with the neurologist Dr. Albarran in the patient received TNK at 19:27. ?Soon after starting these medications pushing developed a tonic-clonic seizure for which Valium 7.5 mg x 1 was given and then the patient was loaded with Dilantin as she has had issues with Keppra in the recent past. Currently the patient is not able to provide a history.? She appears to be postictal.? A repeat head CT was performed in the emergency room to ensure that there was no hemorrhagic conversion after initiation of tPA; this was negative for ICH; she does have underlying seizure disorder categorize as complex partial events.? The patient is transferred to the ICU for further care. Review of Systems Review of Systems: Yes Unobtainable due to mental status PMFSH Past Medical History Medical History Recurrent UTI Altered mental status Acute encephalopathy Bilateral arm pain Osteoarthritis of knees, bilateral TIA (transient ischemic attack) Seizure disorder Knee osteoarthritis Urinary incontinence GERD (gastroesophageal reflux disease) COPD (chronic obstructive pulmonary disease) Obesity (BMI 30-39.9) Hypertension UTI (urinary tract infection) Hypertriglyceridemia Impaired glucose tolerance Vitamin D deficiency Family History Family History Father No problems noted. Mother Past heart attack Sister Diabetes Brother Prostate cancer Surgical History Surgical History H/O oophorectomy History of abdominal hysterectomy History of bilateral cataract extraction H/O left wrist surgery Social History Social History Household Members: Family and Children Household Members Other:: Daughter, son-in-law Housing: House Do you presently have visiting nurse or other home services: Yes (PT finished last Fri, [facility] after recent hospitalization) Alcohol intake: never Comment: [id number] Patient Tobacco Use Status: Never used Tobacco Tobacco use type: Cigarette Smoked in Last 30 Days: No e-Cigarette/Vaping Use: Never Used Second Hand Smoke Exposure: No Currently Displaying Signs/Symptoms of Drug Intoxication Withdrawal: No Do you feel safe in your current relationship?: No Current Relationship [facility] Practices: [facility] Advance Directives: Yes Advance Directives on File: Yes Advance Directives Date on File: 12/23/23 Do you have a plan to hurt others: No Plan Recently lost weight without trying: No Eating poorly because of decreased appetite: No Nutrition Risks: Difficulty chewing and On aspiration precautions Patient : No : No Poor oral hygiene: Yes (upper dentures) service: No Current occupational status: retired Cognitive needs: Yes (cane, walker) Hearing needs: No Vision needs: Yes (glasses) Meds Allergies Allergy/AdvReac Type Severity Reaction Status Date / Time lisinopril Allergy Unknown cough Verified 08/13/24 19:34 Amlodipine AdvReac Intermediate Leg Uncoded 08/13/24 19:34 swelling Active Medications: Current Medications Metronidazole (Flagyl) 500 mg in 100 mls @ 100 mls/hr IV Q12H MILIND Sodium Chloride (0.9 % Sodium Chloride Flush 3 Ml Syringe) 3 ml IVFLUSH QSHIFT [facility] Home Medications ?Medication ?Instructions ?Recorded ?Confirmed ?Last Taken ?Type acetaminophen 500 mg tablet 1,000 mg PO Q6H PRN Pain 02/02/20 08/13/24 Unknown History (Tylenol Extra Strength) cholecalciferol (vitamin D3) 50 50 mcg PO DAILY 12/22/23 08/13/24 08/13/24 History mcg (2,000 unit) tablet (Vitamin D3) cyanocobalamin (vitamin B-12) 1,000 mcg PO MO 12/22/23 08/13/24 08/09/24 History 1,000 mcg tablet (Vitamin B-12) mirtazapine 7.5 mg tablet 7.5 mg PO BEDTIME PRN Sleep 12/22/23 08/13/24 Unknown History nystatin 100,000 unit/gram topical 1 appl topical DAILY PRN Fungal 12/22/23 08/13/24 Unknown History powder Infection estradiol 0.01% (0.1 mg/gram) 1 g vaginal TUTH 06/07/24 08/13/24 08/10/24 History vaginal cream fluticasone propionate 50 1 spray intranasal DAILY PRN 06/07/24 08/13/24 Unknown History mcg/actuation nasal Allergy Symptoms spray,suspension lamotrigine 25 mg tablet 25 mg PO DAILY 08/13/24 08/13/24 08/13/24 History solifenacin 5 mg tablet 5 mg PO DAILY 08/13/24 08/13/24 Unknown History Physical Exam Vital Signs: Vital Signs: Last Vital Signs Temp 98.5 F 08/13/24 22:00 Pulse 96 08/13/24 22:00 Resp 20 08/13/24 22:00 BP 124/76 08/13/24 22:00 Pulse Ox 99 08/13/24 22:00 O2 Del Method Nasal Cannula 08/13/24 22:00 O2 Flow Rate 2 08/13/24 22:00 BMI result Body Mass Index 35.5 General:? Alert, agitated, unable to determine orientation.? Shouting and screaming uncomprehensible words. ?Unable to follow commands. Skin:? Thin, Intact, no lesions, edema, erythema, clubbing or cyanosis.? No ulcers. HEENT: ?Minimal right-sided facial drooping Head is normocephalic, atraumatic, pupils equal. Unable to evaluate extraocular movements. Buccal mucosa is dry, unable to stick her tongue out upon request Neck is supple without lymphadenopathy. Cardiac:? Clear S1-S2, no murmurs rubs or gallops. Pulmonary:? Diminished lung sounds bilaterally fine expiratory wheezing bilaterally .? No crackles, rales or rhonchi. Abdomen:? Protuberant, positive bowel sounds in all 4 quadrants.? Soft, nontender, no rebound or guarding.? Musculoskeletal:? The patient is moving all 4 extremities on her own at the major joints.? There is weakness of the right upper extremity but 3 to 4/5 on hand supervisor final in comparison to 5/5 on the left.? No cogwheeling, no edema; unable to further assess for strength range of motion as the patient is very agitated. Neurologic:? As above.? Noticeable right facial droop, right side neglect, right upper extremity weakness 3/5 in comparison to left. ?Patient unable to perform a special task such as [id number], thumb opposition, rbbn-[id number].? She does appear to have expressive aphasia. Vascular:? 2+ pulses upper and lower extremities distally.? Less than 2nd capillary refill of fingers and toes bilaterally upper and lower extremities Results Labs 08/14/24 05:31 08/14/24 05:31 Labs: Laboratory Results - last 24 hr 08/13/24 08/13/24 08/13/24 19:12 19:16 20:34 MCV MCH MCHC RDW Plt Count MPV Immature Gran % (Auto) Neut % (Auto) Lymph % (Auto) [place] % (Auto) Eos % (Auto) Baso % (Auto) Lymph # (Auto) [place] # (Auto) Eos # (Auto) Baso # (Auto) Abs Immat Gran (auto) Absolute Neuts (auto) Absolute Nucleated RBC Nucleated RBC % (auto) PT 12.0 INR 1.0 APTT 28.2 Anion Gap 21 H Estim Creat Clear Calc 57.5 Estimated GFR > 60 POC Glucose 104 Random Glucose 157 H Calcium 9.3 D Triglycerides 123 Cholesterol 151 LDL Cholesterol, Calc 69 HDL Cholesterol 58 08/13/24 20:38 MCV 90.1 MCH 30.0 MCHC 33.3 RDW 12.7 Plt Count 175 MPV 10.8 Immature Gran % (Auto) 0.6 H Neut % (Auto) 71.8 Lymph % (Auto) 21.1 [place] % (Auto) 5.7 Eos % (Auto) 0.3 Baso % (Auto) 0.5 Lymph # (Auto) 2.3 [place] # (Auto) 0.6 Eos # (Auto) 0.0 Baso # (Auto) 0.1 Abs Immat Gran (auto) 0.06 H Absolute Neuts (auto) 7.7 Absolute Nucleated RBC 0.000 Nucleated RBC % (auto) 0.0 PT INR APTT Anion Gap Estim Creat Clear Calc Estimated GFR POC Glucose Random Glucose Calcium Triglycerides Cholesterol LDL Cholesterol, Calc HDL Cholesterol Assessment and Plan (1) Acute CVA (cerebrovascular accident): Status: Acute Plan ASSESSMENT : 1. Acute right-sided tory-neglect facial droop likely stroke post tPA imrpoving 2. History of complex partial seizure disorder status post syncopal event in the ER 3. C diff colitis still on treatment with oral vancomycin (2 more days) 4. Acute Metabolic encephalopathy and agitation r/o UTI 5. Hx Vascular Dementia PLAN OF CARE: The patient will be admitted to the ICU, monitor vital signs and I's and O's.? Allowed liberalize blood pressure per post tPA administration protocol.? Seizure contact precautions.? Swallow eval in the morning, echo, PT, OT and speech evaluation.? Obtain a lipid profile and start statin when the patient is cleared to take p.o. ECHO, MRI tomorrow. Regarding her seizures, the patient was recently placed on Lamictal, we will obtain a level, in the meantime treat her with Dilantin, it is known that Keppra in the past had made her aggressive. ?As the patient is not able to take p.o. things postictal state, we will place her on metronidazole IV, low dose opioids and if needed low dose versed, enough to calm her while still be able to do her neuro checks. Obtain Urinalysis and treat with emperic Rocephin based on prior cultures. GI PROPHYLAXIS: Iv PPI DVT PROPHYLAXIS: [facility] 0515 am clinical update After admission, urinalysis was obtained, this appears to be positive for UTI. Patient was treated with Rocephin Patient continues to be intermittently agitated, moaning, groaning, attempting to remove her IV lines, attempting to get out of bed. According to family members this is usually how she behaves which she has an infection or any other illness. She appears to be moving her extremities in a normal fashion and on her own, I do not appreciate any weakness. Her facial drooping has resolved. Her pupils are reactive. Given her agitation, 2 mg of Versed IV push given. Blood pressure is borderline, I doubt that this is sepsis, but still a posibility. However, the risk of hypoperfusion in the setting of his stroke is always a concern. We will give her some IV fluids albumin, the patient is a risk of fluid overload therefore 30 mL/kilo will not be given at this point. We will monitor closely. Lactic acid added to the labs. I also do not think her neurological status is worsening, if anything she is more alert, moving around even using the right upper extremity some of her words are also becoming more comprehensible ? come on, stop it MRI later this eveninng. Critical care time used for critical evaluation of this patient, diagnosis, treatment and coordination of care, review her records and documentation TOTAL CRITICAL CARE TIME?75 MIN . discussion and coordination with consultants, completely separate from any procedures performed. Patient's care was discussed in detail with Dr. Falcon who is aware of all the above as well as the plan of care for this patient.
[2024-08-13 23:00] LABS: Glucose, Whole Blood 160 mg/dL (60-115)
[2024-08-13] MEDS: metroNIDAZOLE/NS 500 MG/100 ML PIGGYBACK 100 MG IV (23:05)
[2024-08-13 23:11] LABS: Appearance Urine Clear; Color Urine Yellow; Glucose Urine UA 100 mg/dL (Negative); Leukocyte Esterase Urine Moderate (2+) (Negative); Nitrite Urine Positive (Negative); PH 6.5 (5.0-9.0); Specific Gravity - Urine >= 1.030 (1.005-1.025); UMIC TRIGGER UACC YES; Urine Blood Small (1+) (Negative); Urine Ketones Trace mg/dL (Negative); Urine Protein Trace mg/dL (Neg-Trace)
[2024-08-13 23:16] LABS: Bacteria Urine 3+ (None Seen); Hyaline Casts Urine 0-2 /LPF (0-2); Squamous Epithelial Cell Urine 0-2 /HPF (0-2); UACC Culture Trigger YES; WBC Urine 21-50 /HPF (0-5)
[2024-08-13] MEDS: HYDROmorphone HCl 0.5 MG/0.5 ML SYRINGE IVPUSH (23:45)
[2024-08-13] MEDS: cefTRIAXone sodium 1 GM VIAL IVPUSH (23:47)
[2024-08-13 23:53] LABS: Influenza A PCR NEGATIVE (Negative); Influenza B PCR NEGATIVE (Negative); Resp Syncy Virus RNA Qual PCR NEGATIVE (Negative); SARS COV2 PCR INHOUSE NEGATIVE (Negative)
[2024-08-14] VITALS (68 sets, daily range): BP systolic 72–156; BP diastolic 22–102; PULSE 51–113; RESP 11–95; TEMP 36.7–37.7; O2SAT 87–98; BMI 34.4
--- NOTE | 2024-08-14 01:38 | PC.NURSE ---
Addendum entered by Liss Sanchez RN 08/14/24 06:52: Patient remained intermittently agitated and restless with care this morning, making it difficult to obtain accurate blood pressures despite redirection and calming attempts. PA notified with orders to give an additional dose of IVP versed in order to calm and attempt to obtain accurate BP. The patient's restlessness and agitation did improve after the versed, however, the blood pressure was now low (map less than 65), and correlated on bilateral arms. REY Hurtado notified and to bedside. Pt afebrile and normothermic to touch. HR less than 100 when allowed to rest/not agitated, low 100's with agitation/lab draws/care. Spo2 maintained and breathing remains even and unlabored without distress. Mentation improving, with patient intermittently responding to her name this morning, though mostly continues with mumbling profanity/ short phrases God dammit and Come on , and incomprehensible words. Septic workup including lactic and Bcx obtained. Patient given 500 LR bolus x2 and albumin x2, second of each were infusing during handoff report to oncoming RN. Original Note: Patient arrived to ICU from ED at approximately 22:15, s/p TNK in the ED for concern for stroke. ED course notable for seizure activity, per handoff telephone report received.? History and admission risk assessment info obtained from the patient's daughter, Cecelia, with whom the patient lives. Per Cecelia, the patient has baseline vascular dementia though she describes her as being functional and able to toilet and feed herself, as well as ambulate with a walker with some assistance at baseline. Cecelia reported to this scientific writer that the patient was recently here over [facility]'s Day weekend with a UTI and confusion, and that the pt was discharged home with services. Cecelia reported that the pt was being treated recently for c.diff which she has two days of medication left for . REY Jean notified, pt placed on contact precautions.? This patient arrived confused, very restless and agitated, pulling at necessary medical equipment including her IV, tele and spo2 wires, and purewick. Unable to calm and redirect the pt despite attempts. Phlebotomy orders in place for lamotrigine level and patient in need of a second IV access per policy and PA request. Staff were unable to obtain labs or IV due to continued restlessness/agitated. PA orders for 2mg IV versed, given with good though short-lived effect. Staff were able to place and IV and obtain labs after administering, however, the patient was soon again restless, agitated, and again pulling at equipment and attempting to get OOB. Doughnut Machine Operator encountered significant difficulty obtaining an accurate BP during this time due to restlessness; patient would not sit still, was observed rolling onto her side in bed and scooting up using her heels, would not relax arms or legs despite attempting BP on LUE and BLE and attempting to redirect (see vitals). PA notified of vitals and behavior and to bedside, orders for IV dilaudid. Pt was medicated with?+effect. TNK, aspiration, and seizure precautions remain in place. No seizure activity or bleeding noted since assuming care. U/A sent on assuming care concerning for UTI. PA made aware with orders for abx, administered without complications.? An In-room camera was placed to assist with maintaining safety and necessary medical equipment/lines.? Bed alarm on, yellow socks in place. Patient assisted with q2h turning and repositioning for skin integrity. Please see admission/shift/neuro assessments, tasks in worklist, and MAR for full details. Plan of care initiated and ongoing.?
[2024-08-14] MEDS: HYDROmorphone HCl 0.5 MG/0.5 ML SYRINGE 0.25 MG IVPUSH ×2 (02:07→03:33)
[2024-08-14] MEDS: Midazolam HCl 2 MG/2 ML VIAL IVPUSH (05:23)
[2024-08-14 05:37] LABS: MANUAL DIFF FLAG NO
[2024-08-14 05:38] LABS: Basophils Percent Auto 0.3 % (0-2); Hematocrit 36.2 % (37.0-47.0); Hemoglobin 12.4 g/dl (12.0-16.0); Imm Gran Abs Auto 0.06 X10*3/uL (0.00-0.03); Imm Gran Pct Auto 0.5 % (0.0-0.4); Lymphocytes Absolute Auto 2.6 X10*3/uL (1.2-4.9); Lymphocytes Percent Auto 20.3 % (20-40); Mean Corpuscular HGB Conc 34.3 g/dl (31.0-35.0); Mean Corpuscular Hemoglobin 30.7 pg (27.0-33.0); Mean Corpuscular Volume 89.6 fL (80.0-98.0); Mean Platelet Volume 9.2 fL (9.4-12.3); Monocytes Absolute Auto 0.9 X10*3/uL (0.1-1.2); Monocytes Percent Auto 6.9 % (2-11); Neutrophils Absolute Auto 9.4 x10*3/uL (2.0-8.3); Platelet Count 260 X10*3/uL (160-400); Red Blood Count 4.04 X10*6/uL (4.20-5.50); Red Cell Distribution Width 12.6 % (11.0-16.0)
--- NOTE | 2024-08-14 05:39 | PM.SEPBOLA4 ---
Sepsis Bolus Exclusion Sepsis Bolus Exclusion CHF/Renal Failure Date of Occurrence: 08/14/24 Time of Occurrence:: 05:15 This patient met severe sepsis criteria due to the following condition(s):: Hypotension In my clinical judgement the administration of 30 ml/kg of crystalloid would be detrimental to this patient due to the patient's following conditions:: NYHA class III or IV Heart Failure(symptoms with low exertion or rest) and Concern for fluid overload Replace the 30 mls/kg with (Zero amount not acceptable and all fluids for severe sepsis must be given at GREATER than 125 mls/hr) *Note: One of the santiago must be documented Crystalloids amount given in mls: (rate must be at least 150cc/hr): 500 Colloids amount given in mls:: 200 At a rate of (must be > 125 cchr):: 133
[2024-08-14] MEDS: Lactated Ringers 500 ML 999 ML IVCONT (05:40)
[2024-08-14] MEDS: Albumin Human 25 % 100 ML 133.33 ML IV ×2 (05:46→06:32)
[2024-08-14] MEDS: Pantoprazole Sodium 40 MG/10 ML VIAL IVPUSH (05:47)
[2024-08-14 05:54] LABS: Anion Gap 14 (12-20); Blood Urea Nitrogen 12 mg/dL (9-16); Carbon Dioxide 23 mmol/L (22-29); Chloride 108 mmol/L (96-108); Cholesterol 131 mg/dL (<200); Creatinine Clr Calc Pharmacy 58.8; Estimated Glomerular Filt Rate > 60; Glucose Random 120 mg/dL (60-115); HDL Cholesterol 55 mg/dL (>40); LDL Cholesterol Calculated 62 mg/dL (<100); Potassium 3.8 mmol/L (3.3-5.1); Sodium 141 mmol/L (135-145); Triglycerides 71 mg/dL (<150)
[2024-08-14 06:26] LABS: Lactic Acid 2.1 mmol/L (0.5-2.0)
[2024-08-14] MEDS: Lactated Ringers 500 ML 999 ML IV (06:40)
[2024-08-14 07:37] LABS: Glucose, Whole Blood 109 mg/dL (60-115)
--- NOTE | 2024-08-14 07:44 | PC.NURSE ---
Addendum entered by Herminio Puente RN 08/15/24 11:11: all jewellery taken home by daughter/HCP Addendum entered by Herminio Puente RN 08/14/24 14:57: mri stated soonest availability is 2029 tonight Addendum entered by Herminio Puente RN 08/14/24 14:24: pt RUE hand grasp remains weaker than LUE. pt was able to follow commands. per md ok to get pt OOB as long as pt is strong and safe enough to do so. pt in recliner. 2a OOB with walker, slow shuffled gait. pt more communicative and coherent, still slightly drowsy. pt HR dropped to 48 sustained SB while asleep. informed. Addendum entered by Herminio Puente RN 08/14/24 11:23: pt unable to take PO at this time d/t drowsiness. informed. titrating dex Addendum entered by Herminio Puente RN 08/14/24 10:13: per MRI no time slot available. other stat orders are in place. MRI form completed w/ HCP at bedside and faxed to MRI Addendum entered by Herminio Puente RN 08/14/24 09:52: pt stated she has to use the restroom. attempted to have pt void with purewick. pt was unable to understand d/t confusion and continued to be restless and agitated. informed. juares placed per md verbal order. pt was calm after juares placement. 4 staff members required for juares placement Addendum entered by Herminio Puente RN 08/14/24 08:27: R hand IV infiltrated. informed and pics sent. pt very restless, confused and agitated. unable to redirect. informed. Addendum entered by Herminio Puente RN 08/14/24 07:53: pt bladder scanned for 284ml. will re-assess if pt doesnt void. Original Note: pt restless, confused and not following commands this AM. BP low b/l. informed
[2024-08-14 08:03] LABS: Reflex Lactate? Lactic Acid Added
[2024-08-14] MEDS: Lactated Ringers 1,000 ML 999 ML IV (08:27)
[2024-08-14] MEDS: Haloperidol Lactate 5 MG/ML VIAL IVPUSH (08:30)
[2024-08-14] MEDS: dexmedeTOMIDine HCL/NS 400 MCG/100 ML PLAST..BAG 22.75 MCG IVCONT (08:40)
[2024-08-14 09:06] LABS: ~Lactic Acid-LAB USE ONLY 3.2 mmol/L (0.5-2.0)
[2024-08-14] MEDS: Norepinephrine Bitartrate/D5W 8 MG/250 ML PLAST..BAG 8.53 MG IVCONT (09:22)
--- NOTE | 2024-08-14 10:15 | PM.CCPN ---
Subjective Subjective Date of Service: 08/14/24 Interval History: 88-year-old lady with underlying recurrent UTIs, C diff colitis on p.o. vancomycin, prior TIA, underlying seizure disorder on Lamictal, COPD admitted on 08/13/2024 with acute right upper extremity weakness. Her CT had was negative for acute intracranial process. Patient receive TNK and was admitted to intensive care unit for close monitoring. After patient received TNK in emergency room she had a witnessed seizure. Her hospital course also significant for septic shock with likely source. No events overnight. Critical Care Time (minutes): 60 Physical Exam Vital Signs: Vital Signs: Last Vital Signs Temp 99.3 F 08/14/24 05:37 Pulse 67 08/14/24 09:45 Resp 15 08/14/24 09:00 BP 96/39 L 08/14/24 09:45 Pulse Ox 94 08/14/24 09:00 O2 Del Method Room Air 08/14/24 08:00 O2 Flow Rate 2 08/13/24 22:00 BMI result Body Mass Index 34.4 Const: General: confusion (Intermittently agitated) Orientation/consciousness: confusion (Intermittently agitated) HEENT: Head: Yes atraumatic Eyes: General: appearance normal, both eyes and all related structures Sclerae: sclerae normal EOM: EOMs intact bilaterally Neck: Neck: Yes supple Lymphatic: no lymphadenopathy noted Resp: Effort & Inspection: normal respiratory effort and no use of accessory muscles Auscultation: clear to auscultation bilaterally Cardio: Rate: regular rate Rhythm: regular rhythm Heart sounds: no gallops, no murmurs and no rubs Skin: General skin exam: other ( warm) Neuro: General: confusion (Intermittently agitated) Extrem: General: No clubbing, No cyanosis and Yes edema (Trace bilateral) Objective Data Labs 08/14/24 05:31 08/14/24 05:31 Labs: Laboratory Results - last 24 hr 08/13/24 08/13/24 08/13/24 19:12 19:16 20:34 WBC RBC Hgb Hct MCV MCH MCHC RDW Plt Count MPV Immature Gran % (Auto) Neut % (Auto) Lymph % (Auto) [place] % (Auto) Eos % (Auto) Baso % (Auto) Lymph # (Auto) [place] # (Auto) Eos # (Auto) Baso # (Auto) Abs Immat Gran (auto) Absolute Neuts (auto) Absolute Nucleated RBC Nucleated RBC % (auto) Hold Purple Top PT 12.0 INR 1.0 APTT 28.2 Hold Blue Top Sodium 142 Potassium 5.1 D Chloride 111 H Carbon Dioxide 15 L Anion Gap 21 H BUN 14 Creatinine 0.78 Estim Creat Clear Calc 57.5 Estimated GFR > 60 POC Glucose 104 Random Glucose 157 H Lactic Acid Lactic Acid F/U @ 2Hr Calcium 9.3 D Troponin I High Sens 3.9 Triglycerides 123 Cholesterol 151 LDL Cholesterol, Calc 69 HDL Cholesterol 58 Hold Yellow Top Urine Color Urine Appearance Urine pH Ur Specific [place] Urine Protein Urine Glucose (UA) Urine Ketones Urine Blood Urine Nitrite Ur Leukocyte Esterase Urine RBC Urine WBC Ur Squamous Epith Cells Urine Bacteria Hyaline Casts Influenza Type A (PCR) Influenza Type B (PCR) RSV RNA Qual (PCR) SARS-CoV-2 RNA (RT-PCR) 08/13/24 08/13/24 08/13/24 20:38 20:45 22:50 WBC 10.7 RBC 4.56 Hgb 13.7 D Hct 41.1 MCV 90.1 MCH 30.0 MCHC 33.3 RDW 12.7 Plt Count 175 MPV 10.8 Immature Gran % (Auto) 0.6 H Neut % (Auto) 71.8 Lymph % (Auto) 21.1 [place] % (Auto) 5.7 Eos % (Auto) 0.3 Baso % (Auto) 0.5 Lymph # (Auto) 2.3 [place] # (Auto) 0.6 Eos # (Auto) 0.0 Baso # (Auto) 0.1 Abs Immat Gran (auto) 0.06 H Absolute Neuts (auto) 7.7 Absolute Nucleated RBC 0.000 Nucleated RBC % (auto) 0.0 Hold Purple Top PT INR APTT Hold Blue Top Sodium Potassium Chloride Carbon Dioxide Anion Gap BUN Creatinine Estim Creat Clear Calc Estimated GFR POC Glucose Random Glucose Lactic Acid Lactic Acid F/U @ 2Hr Calcium Troponin I High Sens Triglycerides Cholesterol LDL Cholesterol, Calc HDL Cholesterol Hold Yellow Top Urine Color Yellow Urine Appearance Clear Urine pH 6.5 Ur Specific [place] >= 1.030 H Urine Protein Trace Urine Glucose (UA) 100 H Urine Ketones Trace Urine Blood Small (1+) H Urine Nitrite Positive H Ur Leukocyte Esterase Moderate (2+) H Urine RBC 11-20 H Urine WBC 21-50 H Ur Squamous Epith Cells 0-2 Urine Bacteria 3+ Hyaline Casts 0-2 Influenza Type A (PCR) NEGATIVE Influenza Type B (PCR) NEGATIVE RSV RNA Qual (PCR) NEGATIVE SARS-CoV-2 RNA (RT-PCR) NEGATIVE 08/13/24 08/14/24 08/14/24 22:55 05:31 05:59 WBC 13.0 H RBC 4.04 L Hgb 12.4 Hct 36.2 L MCV 89.6 MCH 30.7 MCHC 34.3 RDW 12.6 Plt Count 260 D MPV 9.2 L Immature Gran % (Auto) 0.5 H Neut % (Auto) 72.0 Lymph % (Auto) 20.3 [place] % (Auto) 6.9 Eos % (Auto) 0.0 Baso % (Auto) 0.3 Lymph # (Auto) 2.6 [place] # (Auto) 0.9 Eos # (Auto) 0.0 Baso # (Auto) 0.0 Abs Immat Gran (auto) 0.06 H Absolute Neuts (auto) 9.4 H Absolute Nucleated RBC 0.000 Nucleated RBC % (auto) 0.0 Hold Purple Top PT INR APTT Hold Blue Top Sodium 141 Potassium 3.8 D Chloride 108 Carbon Dioxide 23 Anion Gap 14 BUN 12 Creatinine 0.75 Estim Creat Clear Calc 58.8 Estimated GFR > 60 POC Glucose 160 H Random Glucose 120 H Lactic Acid 2.1 H* Lactic Acid F/U @ 2Hr Calcium 9.0 Troponin I High Sens Triglycerides 71 Cholesterol 131 LDL Cholesterol, Calc 62 HDL Cholesterol 55 Hold Yellow Top Urine Color Urine Appearance Urine pH Ur Specific [place] Urine Protein Urine Glucose (UA) Urine Ketones Urine Blood Urine Nitrite Ur Leukocyte Esterase Urine RBC Urine WBC Ur Squamous Epith Cells Urine Bacteria Hyaline Casts Influenza Type A (PCR) Influenza Type B (PCR) RSV RNA Qual (PCR) SARS-CoV-2 RNA (RT-PCR) 08/14/24 08/14/24 07:34 08:18 WBC RBC Hgb Hct MCV MCH MCHC RDW Plt Count MPV Immature Gran % (Auto) Neut % (Auto) Lymph % (Auto) [place] % (Auto) Eos % (Auto) Baso % (Auto) Lymph # (Auto) [place] # (Auto) Eos # (Auto) Baso # (Auto) Abs Immat Gran (auto) Absolute Neuts (auto) Absolute Nucleated RBC Nucleated RBC % (auto) Hold Purple Top SEE NOTE PT INR APTT Hold Blue Top SEE NOTE Sodium Potassium Chloride Carbon Dioxide Anion Gap BUN Creatinine Estim Creat Clear Calc Estimated GFR POC Glucose 109 Random Glucose Lactic Acid Lactic Acid F/U @ 2Hr 3.2 H* Calcium Troponin I High Sens Triglycerides Cholesterol LDL Cholesterol, Calc HDL Cholesterol Hold Yellow Top See Note Urine Color Urine Appearance Urine pH Ur Specific [place] Urine Protein Urine Glucose (UA) Urine Ketones Urine Blood Urine Nitrite Ur Leukocyte Esterase Urine RBC Urine WBC Ur Squamous Epith Cells Urine Bacteria Hyaline Casts Influenza Type A (PCR) Influenza Type B (PCR) RSV RNA Qual (PCR) SARS-CoV-2 RNA (RT-PCR) Progress Note: A&P Assessment and plan (1) Seizure disorder: Status: Acute (2) Acute CVA (cerebrovascular accident): Status: Acute (3) Septic shock: Status: Acute (4) Recurrent UTI: Status: Acute Plan Assessment: 88-year-old lady with underlying seizure disorder and recurrent UTIs, prior TIA, admitted with acute CVA, now status post TNK, hospital course further complicated by seizure episode and septic shock with likely source. Plan: Neuro: Acute CVA status post TNK. MRI is pending. Neurology service care appreciated. Seizure disorder, continue Lamictal. Cardiac: Septic shock, continue to titrate off pressor support as tolerated. Pulmonary: No acute issues. Renal: No acute issues. Endo: No acute issues. GI: Underlying C diff, continue p.o. vancomycin. ID: Acute UTI with septic shock, continue cefepime. Cultures are pending. Renal ultrasound is pending. Heme/Onc: No acute issues. Psych: No acute issues. Miscellaneous: No acute issues. Prophylaxis: Pneumatic compression Diet: Pending swallow evaluation Critical care time spent: 60 minutes Quality Stroke Does the patient have a stroke diagnosis?: Yes Reason for No Anti-thrombotic by Day Two: N/A - Med Ordered VTE Prior VTE?: No VTE Risk Level:: Medical - moderate - high VTE Device Contraindication: N/A - Device Ordered VTE Drug Contraindication: Treatment Not Indicated
[2024-08-14 10:25] LABS: Reflex Lactate? 2 Y
[2024-08-14] MEDS: cefEPime HCl 1 GM in 0.9 % Sodium Chloride 50 ML IV ×2 (10:35→22:21)
--- NOTE | 2024-08-14 11:03 | P.CNNE_ITS ---
History of Present Illness Data of Consult Service Date: 08/14/24 Primary Care Provider: Nicola Lebron MD [facility] Reason for consult: Suspected stroke 88 years old woman with complicated underlying history including encephalitis and seizure disorder came to hospital with new onset of difficulty speaking and right-sided weakness. In emergency room, with suspicion of ischemic stroke she was treated with TNK and then admitted in ICU. Her mental status is then has declined. No seizure-like episode was noted. Review of Systems 2 Review of Systems: Could not be done with her [facility] Past Medical History Medical History Recurrent UTI Altered mental status Acute encephalopathy Bilateral arm pain Osteoarthritis of knees, bilateral TIA (transient ischemic attack) Seizure disorder Knee osteoarthritis Urinary incontinence GERD (gastroesophageal reflux disease) COPD (chronic obstructive pulmonary disease) Obesity (BMI 30-39.9) Hypertension UTI (urinary tract infection) Hypertriglyceridemia Impaired glucose tolerance Vitamin D deficiency Family History Family History Father No problems noted. Mother Past heart attack Sister Diabetes Brother Prostate cancer Surgical History Surgical History H/O oophorectomy History of abdominal hysterectomy History of bilateral cataract extraction H/O left wrist surgery Social History Social History Household Members: Family and Children Household Members Other:: Daughter, son-in-law Housing: House Do you presently have visiting nurse or other home services: Yes (PT finished last Fri, VNA after recent hospitalization) Alcohol intake: never Comment: [id number] Patient Tobacco Use Status: Never used Tobacco Tobacco use type: Cigarette Smoked in Last 30 Days: No e-Cigarette/Vaping Use: Never Used Second Hand Smoke Exposure: No Currently Displaying Signs/Symptoms of Drug Intoxication Withdrawal: No Do you feel safe in your current relationship?: No Current Relationship Yarsanism Healthcare Practices: Adventism Advance Directives: Yes Advance Directives on File: Yes Advance Directives Date on File: 12/23/23 Do you have a plan to hurt others: No Plan Recently lost weight without trying: No Eating poorly because of decreased appetite: No Nutrition Risks: Difficulty chewing and On aspiration precautions Patient : No : No Poor oral hygiene: Yes (upper dentures) service: No Current occupational status: retired Cognitive needs: Yes (cane, walker) Hearing needs: No Vision needs: Yes (glasses) Meds Allergies Allergy/AdvReac Type Severity Reaction Status Date / Time lisinopril Allergy Unknown cough Verified 08/13/24 19:34 Amlodipine AdvReac Intermediate Leg Uncoded 08/13/24 19:34 swelling Active Medications: Current Medications Aspirin (Aspirin 81 Mg Tab.Chew) 81 mg PO DAILY [facility] Last Admin: 08/14/24 10:51 Dose: 81 mg Dexmedetomidine HCl (Precedex) 400 mcg in 100 mls @ 0 mls/hr IVCONT .Q0M [facility]; Protocol Last Titration: 08/14/24 10:30 Dose: 0.9 mcg/kg/hr, 20.48 mls/hr Norepinephrine Bitartrate (Levophed) 8 mg in 250 mls @ 0 mls/hr IVCONT .Q0M [facility]; Protocol Last Titration: 08/14/24 10:24 Dose: 0.15 mcg/kg/min, 25.59 mls/hr Cefepime HCl 1 gm/ Sodium (Chloride) 50 mls @ 100 mls/hr IV Q12H [facility] Last Admin: 08/14/24 10:35 Dose: 100 mls/hr Pantoprazole Sodium (Pantoprazole Sodium 40 Mg/10 Ml Vial) 40 mg IVPUSH DAILY@0630 [facility] Last Admin: 08/14/24 05:47 Dose: 40 mg Sodium Chloride (0.9 % Sodium Chloride Flush 3 Ml Syringe) 3 ml IVFLUSH QSHIFT [facility] Last Admin: 08/14/24 06:59 Dose: Not Given Vancomycin HCl (Vancomycin Hcl 125 Mg Capsule) 125 mg PO Q6H [facility] Last Admin: 08/14/24 10:51 Dose: 125 mg Home Medications ?Medication ?Instructions ?Recorded ?Confirmed ?Last Taken ?Type acetaminophen 500 mg tablet 1,000 mg PO Q6H PRN Pain 02/02/20 08/13/24 Unknown History (Tylenol Extra Strength) cholecalciferol (vitamin D3) 50 50 mcg PO DAILY 12/22/23 08/13/24 08/13/24 History mcg (2,000 unit) tablet (Vitamin D3) cyanocobalamin (vitamin B-12) 1,000 mcg PO MO 0908/13/24 08/09/24 History 1,000 mcg tablet (Vitamin B-12) mirtazapine 7.5 mg tablet 7.5 mg PO BEDTIME PRN Sleep 12/22/23 08/13/24 Unknown History nystatin 100,000 unit/gram topical 1 appl topical DAILY PRN Fungal 12/22/23 08/13/24 Unknown History powder Infection estradiol 0.01% (0.1 mg/gram) 1 g vaginal TUTH 06/07/24 08/13/24 08/10/24 History vaginal cream fluticasone propionate 50 1 spray intranasal DAILY PRN 06/07/24 08/13/24 Unknown History mcg/actuation nasal Allergy Symptoms spray,suspension lamotrigine 25 mg tablet 25 mg PO DAILY 08/13/24 08/13/24 08/13/24 History solifenacin 5 mg tablet 5 mg PO DAILY 08/13/24 08/13/24 Unknown History Physical Exam 2 Vital Signs: Vital Signs: Last Vital Signs Temp 98.8 F 08/14/24 11:00 Pulse 69 08/14/24 11:00 Resp 18 08/14/24 11:00 BP 107/41 L 08/14/24 10:24 Pulse Ox 92 08/14/24 11:00 O2 Del Method Room Air 08/14/24 11:00 O2 Flow Rate 2 08/13/24 22:00 BMI result Body Mass Index 34.4 Neuro: Other: She was very drowsy. With shouting, she open her eyes but did not make an eye contact. She did not follow command and did not did not say a word. There was no gaze deviation. Pupils are about 2-3 mm round reactive. Face was pendulous and symmetrical. She withdrew with pain. Right plantars was extensor left was flexor. Exam was limited. Results Labs 08/14/24 05:31 08/14/24 05:31 Labs: Short CBC 08/13/24 08/14/24 Range/Units 20:38 05:31 WBC 10.7 13.0 H (4.8-10.8) X10*3/uL Hgb 13.7 D 12.4 (12.0-16.0) g/dl Hct 41.1 36.2 L (37.0-47.0) % Plt Count 175 260 D (160-400) X10*3/uL BMP 08/13/24 08/14/24 20:34 05:31 Sodium 142 141 Potassium 5.1 D 3.8 D Chloride 111 H 108 Carbon Dioxide 15 L 23 BUN 14 12 Creatinine 0.78 0.75 Calcium 9.3 D 9.0 Urine 08/13/24 Range/Units 22:50 Urine Color Yellow Urine Appearance Clear Urine pH 6.5 (5.0-9.0) Ur Specific [place] >= 1.030 H (1.005-1.025) Urine Protein Trace (Neg-Trace) mg/dL Urine Glucose (UA) 100 H (Negative) mg/dL Head CT was limited because of motion artifact but did not reveal any acute lesion. Assessment and Plan (1) Stroke: Qualifiers: CVA mechanism: unspecified Qualified Code(s): I63.9 - Cerebral infarction, unspecified Status: Acute 88 years old woman with complex underlying medical and neurological history was treated for suspected ischemic stroke with TNK in emergency room for symptoms of difficulty speaking a right hemiparesis. On examination now she was very drowsy, not communicating or speaking, withdrawing with pain, and has not right extensor plantars. Overall clinical picture is also suggestive of UTI and probably septic shock. More urgent issues are infection and sharp that should be treated with hydration inappropriate management. When feasible, MRI of brain is recommended. Procedures Date of Service Date of Service: 08/14/24
--- NOTE | 2024-08-14 11:13 | MHC.CM.PN ---
IMM DELIVERED TO DTR/HCP/MEAT PRESS OPERATOR ELLEN AT BEDSIDE, ELLEN REPORTS SHE LIVES W/PT, PT HAD JUST GRADUATED FROM P.T. W/NA AND SHE WOULD LIKE THEIR SERVICES ON DC IS NEEDED, REF PLACED. PT USES A CANE AND WALKER AND HAS BEEN USINF A WALKER PRIMARILY, GRAB BARS IN [place], PT HAS [facility] CM AND ELLEN IS PT'S [employer] MEAT PRESS OPERATOR 42HRS/[facility], GOAL IS FOR PT TO RETURN HOME W/SERVICES. PCP/HCP ON FILE VERIFIED.
[2024-08-14] MEDS: dexmedeTOMIDine HCL/NS 400 MCG/100 ML PLAST..BAG 20.48 MCG IVCONT (11:20)
[2024-08-14 11:23] LABS: ~Lactic Acid-LAB USE ONLY 1.6 mmol/L (0.5-2.0)
[2024-08-14 11:33] LABS: Glucose, Whole Blood 169 mg/dL (60-115)
[2024-08-14] MEDS: Aspirin 81 MG TAB.CHEW PO (13:02)
[2024-08-14] MEDS: vancomycin HCL 125 MG CAPSULE PO ×3 (13:02→22:21)
[2024-08-14 17:42] LABS: Glucose, Whole Blood 123 mg/dL (60-115)
[2024-08-14] MEDS: 0.9 % Sodium Chloride Flush 3 ML SYRINGE IVFLUSH (20:00)
[2024-08-14] MEDS: HYDROmorphone HCl 1 MG/ML SYRINGE IVPUSH (20:25)
[2024-08-14 22:57] LABS: Glucose, Whole Blood 115 mg/dL (60-115)
[2024-08-15] VITALS (15 sets, daily range): BP systolic 104–167; BP diastolic 46–95; PULSE 22–113; RESP 12–22; TEMP 36.2–37.6; O2SAT 92–96; BMI 35.1
[2024-08-15] MEDS: vancomycin HCL 125 MG CAPSULE PO ×4 (04:00→22:04)
[2024-08-15 05:31] LABS: MANUAL DIFF FLAG NO
[2024-08-15 05:33] LABS: Basophils Absolute Auto 0.1 X10*3/uL (0.0-0.2); Basophils Percent Auto 0.5 % (0-2); Eosinophils Percent Auto 0.4 % (0-4); Hematocrit 36.2 % (37.0-47.0); Hemoglobin 12.3 g/dl (12.0-16.0); Imm Gran Abs Auto 0.04 X10*3/uL (0.00-0.03); Imm Gran Pct Auto 0.4 % (0.0-0.4); Lymphocytes Absolute Auto 2.1 X10*3/uL (1.2-4.9); Lymphocytes Percent Auto 23.1 % (20-40); Mean Corpuscular Hemoglobin 30.6 pg (27.0-33.0); Mean Platelet Volume 9.3 fL (9.4-12.3); Monocytes Absolute Auto 1.1 X10*3/uL (0.1-1.2); Monocytes Percent Auto 11.9 % (2-11); Neutrophils Absolute Auto 5.8 x10*3/uL (2.0-8.3); Neutrophils Percent Auto 63.7 % (45-73); Platelet Count 224 X10*3/uL (160-400); Red Blood Count 4.02 X10*6/uL (4.20-5.50); Red Cell Distribution Width 12.5 % (11.0-16.0); White Blood Count 9.1 X10*3/uL (4.8-10.8)
[2024-08-15 05:50] LABS: Alanine Aminotransferase 41 U/L (0-31); Albumin Level 4.1 g/dL (3.5-5.0); Anion Gap 15 (12-20); Aspartate Amino Transferase 52 U/L (5-31); Blood Urea Nitrogen 9 mg/dL (9-16); Calcium 9.6 mg/dL (8.4-10.2); Carbon Dioxide 23 mmol/L (22-29); Chloride 108 mmol/L (96-108); Creatinine Clr Calc Pharmacy 57.1; Estimated Glomerular Filt Rate > 60; Glucose Random 98 mg/dL (60-115); Magnesium 1.6 mg/dL (1.6-2.6); Phosphorus 2.3 mg/dL (2.7-4.5); Potassium 3.7 mmol/L (3.3-5.1); Sodium 142 mmol/L (135-145); Total Protein 6.4 g/dL (6.5-8.0)
[2024-08-15 06:02] LABS: Alkaline Phosphatase 62 U/L (39-117)
[2024-08-15] MEDS: Pantoprazole Sodium 40 MG/10 ML VIAL IVPUSH (06:06)
[2024-08-15 07:45] LABS: Glucose, Whole Blood 108 mg/dL (60-115)
[2024-08-15] MEDS: Potassium Phosphate/NS 15 MMOL/250 ML PLAST..BAG 62.5 MMOL IV (07:55)
[2024-08-15] MEDS: 0.9 % Sodium Chloride Flush 3 ML SYRINGE IVFLUSH ×2 (07:56→22:13)
[2024-08-15] MEDS: Aspirin 81 MG TAB.CHEW PO (08:11)
--- NOTE | 2024-08-15 10:11 | PM.CCPN ---
Subjective Subjective Date of Service: 08/15/24 Interval History: 88-year-old lady with underlying recurrent UTIs, C diff colitis on p.o. vancomycin, prior TIA, underlying seizure disorder on Lamictal, COPD admitted on 08/13/2024 with acute right upper extremity weakness. Her CT had was negative for acute intracranial process. Patient receive TNK and was admitted to intensive care unit for close monitoring. After patient received TNK in emergency room she had a witnessed seizure. Her hospital course also significant for septic shock with likely source. No events overnight. Titrated off pressor support. Critical Care Time (minutes): 0 Physical Exam Vital Signs: Vital Signs: Last Vital Signs Temp 99.5 F 08/15/24 09:00 Pulse 22 L 08/15/24 09:00 Resp 22 H 08/15/24 09:00 BP 158/68 H 08/15/24 09:00 Pulse Ox 95 08/15/24 09:00 O2 Del Method Room Air 08/15/24 09:00 O2 Flow Rate 2 08/13/24 22:00 BMI result Body Mass Index 35.1 Const: General: no acute distress, alert, awake and confusion Orientation/consciousness: confusion Eyes: Sclerae: sclerae normal EOM: EOMs intact bilaterally Neck: Neck: Yes no lymphadenopathy, Yes trachea midline and Yes supple Resp: Effort & Inspection: normal respiratory effort and no respiratory distress Auscultation: clear to auscultation bilaterally Cardio: Rate: regular rate Rhythm: regular rhythm Heart sounds: no gallops, no murmurs and no rubs GI: Palpation (GI): Soft to palpation and Other GI palpation findings present ( Nontender) Auscultation: normal bowel sounds Neuro: General: confusion Extrem: General: Yes no pedal edema, No clubbing and No cyanosis Objective Data Labs 08/15/24 05:29 08/15/24 05:29 Labs: Laboratory Results - last 24 hr 08/14/24 08/14/24 08/14/24 11:03 11:29 17:38 WBC RBC Hgb Hct MCV MCH MCHC RDW Plt Count MPV Immature Gran % (Auto) Neut % (Auto) Lymph % (Auto) [place] % (Auto) Eos % (Auto) Baso % (Auto) Lymph # (Auto) [place] # (Auto) Eos # (Auto) Baso # (Auto) Abs Immat Gran (auto) Absolute Neuts (auto) Absolute Nucleated RBC Nucleated RBC % (auto) Sodium Potassium Chloride Carbon Dioxide Anion Gap BUN Creatinine Estim Creat Clear Calc Estimated GFR POC Glucose 169 H 123 H Random Glucose Lactic Acid F/U @ 4Hr 1.6 Calcium Phosphorus Magnesium Total Bilirubin AST ALT Alkaline Phosphatase Total Protein Albumin 08/14/24 08/15/24 08/15/24 22:54 05:29 07:41 WBC 9.1 RBC 4.02 L Hgb 12.3 Hct 36.2 L MCV 90.0 MCH 30.6 MCHC 34.0 RDW 12.5 Plt Count 224 MPV 9.3 L Immature Gran % (Auto) 0.4 Neut % (Auto) 63.7 Lymph % (Auto) 23.1 [place] % (Auto) 11.9 H Eos % (Auto) 0.4 Baso % (Auto) 0.5 Lymph # (Auto) 2.1 [place] # (Auto) 1.1 Eos # (Auto) 0.0 Baso # (Auto) 0.1 Abs Immat Gran (auto) 0.04 H Absolute Neuts (auto) 5.8 Absolute Nucleated RBC 0.000 Nucleated RBC % (auto) 0.0 Sodium 142 Potassium 3.7 Chloride 108 Carbon Dioxide 23 Anion Gap 15 BUN 9 Creatinine 0.78 Estim Creat Clear Calc 57.1 Estimated GFR > 60 POC Glucose 115 108 Random Glucose 98 Lactic Acid F/U @ 4Hr Calcium 9.6 D Phosphorus 2.3 L Magnesium 1.6 Total Bilirubin 1.0 AST 52 H ALT 41 H Alkaline Phosphatase 62 Total Protein 6.4 L Albumin 4.1 Microbiology Microbiology Results: Microbiology 08/14/24 05:59 Blood - Venous Blood Culture - Preliminary No growth after 24 hours. 08/14/24 05:59 Blood - Venous Blood Culture - Preliminary No growth after 24 hours. Progress Note: A&P Assessment and plan (1) COPD (chronic obstructive pulmonary disease): Status: Acute (2) Seizure disorder: Status: Acute (3) Recurrent urinary tract infection: Status: Acute Plan Assessment: 88-year-old lady with underlying seizure disorder and recurrent UTIs, prior TIA, admitted with acute CVA, now status post TNK, hospital course further complicated by seizure episode and septic shock with likely source. Plan: Neuro: Acute CVA symptoms status post TNK. MRI with no evidence of acute CVA. Neurology service care appreciated. Seizure disorder, continue Lamictal. Cardiac: Septic shock, resolved. Pulmonary: No acute issues. Renal: No acute issues. Endo: No acute issues. GI: Underlying C diff, continue p.o. vancomycin. ID: Acute UTI, continue cefepime. Cultures are pending. Renal ultrasound with no evidence of hydronephrosis. Heme/Onc: No acute issues. Psych: No acute issues. Miscellaneous: No acute issues. Prophylaxis: Pneumatic compression Diet: Pending swallow evaluation Quality Stroke Does the patient have a stroke diagnosis?: Yes Reason for No Anti-thrombotic by Day Two: N/A - Med Ordered VTE Prior VTE?: No VTE Risk Level:: Medical - moderate - high VTE Device Contraindication: N/A - Device Ordered VTE Drug Contraindication: Treatment Not Indicated
[2024-08-15] MEDS: cefEPime HCl 1 GM in 0.9 % Sodium Chloride 50 ML IV ×2 (10:49→22:04)
[2024-08-15] MEDS: lamoTRIgine 25 MG TABLET PO (10:51)
[2024-08-15 11:46] LABS: Glucose, Whole Blood 121 mg/dL (60-115)
--- NOTE | 2024-08-15 17:18 | PM.EVENT ---
Event Note Date of Service: 08/16/24 Event Note: Assumed care from ICU today. 88-year-old lady with underlying recurrent UTIs, C diff colitis on p.o. vancomycin, prior TIA, underlying seizure disorder on Lamictal, COPD admitted on 08/13/2024 with acute right upper extremity weakness, treated with TNK and admitted to ICU, post TNK she had seizure and ICU course further complicated by Septic shock d/t UTI, sepsis resolved, she is doing better and transfered out of ICU today. . Time Spent With Patient Time: Total time managing care of this patient today ____ minutes.
[2024-08-15 22:17] LABS: Glucose, Whole Blood 95 mg/dL (60-115)
[2024-08-16 03:30] VITALS: BP 139/61; PULSE 88; RESP 16; TEMP 36.6; O2SAT 93
[2024-08-16] MEDS: vancomycin HCL 125 MG CAPSULE PO ×4 (05:13→21:58)
[2024-08-16] MEDS: Pantoprazole Sodium 40 MG/10 ML VIAL IVPUSH (05:13)
[2024-08-16 06:29] LABS: MANUAL DIFF FLAG NO
[2024-08-16 06:56] LABS: Alanine Aminotransferase 30 U/L (0-31); Albumin Level 3.9 g/dL (3.5-5.0); Alkaline Phosphatase 61 U/L (39-117); Anion Gap 16 (12-20); Aspartate Amino Transferase 40 U/L (5-31); Bilirubin Total 0.9 mg/dL (0.0-1.0); Blood Urea Nitrogen 10 mg/dL (9-16); Calcium 9.5 mg/dL (8.4-10.2); Carbon Dioxide 22 mmol/L (22-29); Chloride 107 mmol/L (96-108); Creatinine Clr Calc Pharmacy 70.7; Estimated Glomerular Filt Rate > 60; Glucose Random 74 mg/dL (60-115); Magnesium 1.7 mg/dL (1.6-2.6); Phosphorus 2.6 mg/dL (2.7-4.5); Potassium 3.7 mmol/L (3.3-5.1); Sodium 141 mmol/L (135-145); Total Protein 6.4 g/dL (6.5-8.0)
[2024-08-16 07:05] LABS: Basophils Absolute Auto 0.1 X10*3/uL (0.0-0.2); Basophils Percent Auto 0.5 % (0-2); Eosinophils Absolute Auto 0.1 X10*3/uL (0.0-0.4); Eosinophils Percent Auto 1.3 % (0-4); Hematocrit 37.8 % (37.0-47.0); Hemoglobin 13.2 g/dl (12.0-16.0); Imm Gran Abs Auto 0.04 X10*3/uL (0.00-0.03); Imm Gran Pct Auto 0.4 % (0.0-0.4); Lymphocytes Absolute Auto 2.5 X10*3/uL (1.2-4.9); Lymphocytes Percent Auto 26.5 % (20-40); Mean Corpuscular HGB Conc 34.9 g/dl (31.0-35.0); Mean Corpuscular Hemoglobin 31.1 pg (27.0-33.0); Mean Corpuscular Volume 89.2 fL (80.0-98.0); Mean Platelet Volume 9.6 fL (9.4-12.3); Monocytes Absolute Auto 1.1 X10*3/uL (0.1-1.2); Monocytes Percent Auto 11.9 % (2-11); Neutrophils Absolute Auto 5.6 x10*3/uL (2.0-8.3); Neutrophils Percent Auto 59.4 % (45-73); Platelet Count 244 X10*3/uL (160-400); Red Blood Count 4.24 X10*6/uL (4.20-5.50); Red Cell Distribution Width 12.4 % (11.0-16.0); White Blood Count 9.5 X10*3/uL (4.8-10.8)
[2024-08-16 07:22] LABS: Glucose, Whole Blood 75 mg/dL (60-115)
[2024-08-16 07:24] VITALS: BP 143/70; PULSE 79; RESP 19; TEMP 36.6; O2SAT 95
[2024-08-16 08:31] VITALS: BP 143/70; PULSE 79; O2SAT 95
[2024-08-16] MEDS: lamoTRIgine 25 MG TABLET PO (09:29)
[2024-08-16] MEDS: Aspirin 81 MG TAB.CHEW PO (09:29)
[2024-08-16] MEDS: cefEPime HCl 1 GM in 0.9 % Sodium Chloride 50 ML IV ×2 (10:01→20:53)
[2024-08-16] MEDS: 0.9 % Sodium Chloride Flush 3 ML SYRINGE IVFLUSH ×2 (10:14→17:42)
--- NOTE | 2024-08-16 11:33 | MHC.SL.SWA ---
Speech Pathologist Impression: Risk of Aspiration, Mild Oral Phase Dysphagia Dysphasia Diet Status: UPGRADE from NPO, start NDD2/THIN Liquid Consistency and Strategies for Safe Swallow: Liquid Intake Recommendation: Thin Solid Food Consistency: Dietary Recommendations: Grnd/Mech Altered (NDD2) Additional Modifications to Solid Foods: Patient presents with mild oral phase dysphagia, with presence of top denture, prolonged oral phase with piece meal deglutition, R-side pocketing cleared with sips of liquid. Recommend UPGRADE from NPO, START on GROUND/MECH ALTERED (NDD2) diet and THIN liquids, pills WHOLE in PUREE. Patient will need direct supervision at meal time d/t confusion. Oral Medication Intake: Whole with Puree Please contact the pharmacy regarding appropriate crushable or liquid drug formulations that are available whenever modified delivery is recommended. Supervision While Eating and Drinking for Safe Swallow: Direct Supervision (1:1) Foods to Avoid: Difficult to chew solids, too large pieces of food. Recommendation for Speech: Inpatient Speech Therapy Frequency/Duration: M-F PRN Date Range for Service Req: Timeline to reassess: Carder Blankets Clinican/Clinical Fellow: No Supervisory Statement: I have reviewed and agree with the student/clinical fellow's documentation: N/A Speech Language Pathologist: Laila Wong M.A., CCC-CONCRETE PUMP OPERATOR
--- NOTE | 2024-08-16 12:02 | HO.PM.IMPN ---
Subjective Subjective Date of Service: 08/16/24 Interval History: f/u on cva s/p tnk, septic shcok required icu admission overal better, has some dysphagia RN reported blood in stool yest, none today, H/H is within normla Physical Exam Vital Signs: Vital Signs: Last Vital Signs Temp 97.8 F 08/16/24 07:24 Pulse 79 08/16/24 08:31 Resp 19 08/16/24 07:24 BP 143/70 H 08/16/24 08:31 Pulse Ox 95 08/16/24 08:31 O2 Del Method Room Air 08/16/24 07:24 O2 Flow Rate 2 08/13/24 22:00 BMI result Body Mass Index 35.1 Const: Other: General: AO X 2, no acute distress Resp: CTA bilateral CVS: S1,S2,RRR GI: +BS, NT, no distention Skin: No rash Neuro: motor grossly intact Psych: appropriate affect Objective Data Active Medications Aspirin (Aspirin 81 Mg Tab.Chew) 81 mg PO DAILY [facility] Last Admin: 08/16/24 09:29 Dose: 81 mg Documented By: TAMARA Cefepime HCl 1 gm/ Sodium (Chloride) 50 mls @ 100 mls/hr IV Q12H [facility] Last Infusion: 08/16/24 11:35 Dose: Infused Documented By: TAMARA Lamotrigine (Lamotrigine 25 Mg Tablet) 25 mg PO DAILY [facility] Last Admin: 08/16/24 09:29 Dose: 25 mg Documented By: TAMARA Pantoprazole Sodium (Pantoprazole Sodium 40 Mg/10 Ml Vial) 40 mg IVPUSH DAILY@0630 [facility] Last Admin: 08/16/24 05:13 Dose: 40 mg Documented By: SANJU Sodium Chloride (0.9 % Sodium Chloride Flush 3 Ml Syringe) 3 ml IVFLUSH QSHIFT [facility] Last Admin: 08/16/24 10:14 Dose: 3 ml Documented By: TAMARA Vancomycin HCl (Vancomycin Hcl 125 Mg Capsule) 125 mg PO Q6H [facility] Last Admin: 08/16/24 05:13 Dose: 125 mg Documented By: SANJU Labs 08/16/24 05:21 08/16/24 05:21 Labs: Laboratory Results - last 24 hr 08/15/24 08/16/2425 20:22 05:21 07:06 MCV 89.2 MCH 31.1 MCHC 34.9 RDW 12.4 Plt Count 244 MPV 9.6 Immature Gran % (Auto) 0.4 Neut % (Auto) 59.4 Lymph % (Auto) 26.5 Phelps % (Auto) 11.9 H Eos % (Auto) 1.3 Baso % (Auto) 0.5 Lymph # (Auto) 2.5 Phelps # (Auto) 1.1 Eos # (Auto) 0.1 Baso # (Auto) 0.1 Abs Immat Gran (auto) 0.04 H Absolute Neuts (auto) 5.6 Absolute Nucleated RBC 0.000 Nucleated RBC % (auto) 0.0 Anion Gap 16 Estim Creat Clear Calc 70.7 Estimated GFR > 60 POC Glucose 95 75 Random Glucose 74 Calcium 9.5 Phosphorus 2.6 L Magnesium 1.7 Total Bilirubin 0.9 AST 40 H ALT 30 Alkaline Phosphatase 61 Total Protein 6.4 L Albumin 3.9 Microbiology Microbiology Results: Microbiology 08/13/24 Unknown Urine Culture - Preliminary Urine clean catch - Clean Catch Midstream Culture in progress. 08/14/24 05:59 Blood Culture - Preliminary Blood - Venous No growth after 48 hours. 08/14/24 05:59 Blood Culture - Preliminary Blood - Venous No growth after 48 hours. Assessment and Plan (1) Acute CVA (cerebrovascular accident): Status: Acute (2) Seizure disorder: Status: Acute Plan 88-year-old lady with underlying recurrent UTIs, C diff colitis on p.o. vancomycin, prior TIA, underlying seizure disorder on Lamictal, COPD admitted on 08/13/2024 with acute right upper extremity weakness, treated with TNK and admitted to ICU, post TNK she had seizure and ICU course further complicated by Septic shock d/t UTI, sepsis resolved, she is doing better and transfered out of ICU on 08/15 Acute CVA symptoms status post TNK. MRI with no evidence of acute CVA. Neurology service care appreciated. ASA, add Lipitor in place of pravastatin PT is recommending STR Seizure disorder, continue Lamictal. Septic shock, urinary source suspected but cultures negative, has been on cefepime, will change to ceftin C dif continue, present on admission, diag on 07/30 continue PO Vanco ? blood in stool, H/H stable, nl monitor HTN restart Losartan GERD PPI Dysphagai, DVT prophylaxis: heparin Full code Quality Stroke Does the patient have a stroke diagnosis?: Yes Reason for No Anti-thrombotic by Day Two: N/A - Med Ordered VTE Prior VTE?: No VTE Risk Level:: Medical - moderate - high VTE Device Contraindication: N/A - Device Ordered VTE Drug Contraindication: Treatment Not Indicated
[2024-08-16] MEDS: Atorvastatin Calcium 40 MG TABLET PO (12:29)
[2024-08-16] MEDS: Cyanocobalamin (Vitamin B-12) 1,000 MCG TABLET 1000 MCG PO (12:29)
[2024-08-16 16:00] VITALS: BP 148/72; PULSE 88; RESP 18; TEMP 37.1; O2SAT 92
[2024-08-16 19:33] VITALS: BP 144/81; PULSE 83; RESP 16; TEMP 36.4; O2SAT 97
[2024-08-16 20:21] LABS: Glucose, Whole Blood 103 mg/dL (60-115)
--- NOTE | 2024-08-16 21:23 | CA_ITS ---
Transthoracic Echocardiogram Patient (Last, First, Middle): Nisreen Avery M Gender: Female Date of : 1935 Age: 88 Procedure Date: 08/16/2024 Procedure Type: Transthoracic E[place] [facility] [place]: 162.56 cm Weight: 92.53 kg BSA: 1.97 m2 Heart Rate: bpm BP: 143 / 70 mmHg Film Processing Shift Supervisor: TO Referring MD: Bryant LE Symptoms: stroke post Tnk Study Quality: Technically Difficult Conclusions: - Limited study because the patient was not cooperative. - Normal LV function. - No valvular assessment. Findings Procedure Information The study quality is limited by an uncooperative patient. Left Ventricle Normal left ventricular size and systolic function. The visually estimated ejection fraction is between 55-60%. Aortic Valve There is a normal trileaflet aortic valve. There is mild calcification of the aortic valve. Great Vessels All visible segments of the aorta are normal in size. Pericardium/Pleural There is no evidence of pericardial effusion. Measurements 2D Linear Measurements LVOT Diam: 2.00 3.0+(-)1.3 cm LVOT LVOT Diam: 2.00 LVOT Area: 3.14 Great Vessels Aorta Sinus of Valsalva: 3.27 2.0-3.5 cm Ao Asc: 3.50 2.1-3.4 cm Updated in Other Vendor System with Status of Final Andrew Gannon MD electronically signed on 08/17/2024 4:16:59 PM with status of Final
[2024-08-16 23:57] VITALS: BP 157/76; PULSE 79; RESP 18; TEMP 36.6; O2SAT 95
[2024-08-17] MEDS: Heparin Sodium,Porcine 5,000 UNIT/ML VIAL 5000 UNIT SUBCUT ×2 (00:41→13:08)
[2024-08-17] MEDS: 0.9 % Sodium Chloride Flush 3 ML SYRINGE IVFLUSH ×4 (00:41→21:47)
[2024-08-17 03:57] VITALS: BP 149/73; PULSE 68; RESP 18; TEMP 36.7; O2SAT 96
[2024-08-17] MEDS: vancomycin HCL 125 MG CAPSULE PO ×4 (04:56→21:47)
[2024-08-17] MEDS: Omeprazole 20 MG CAPSULE.DR PO (06:10)
[2024-08-17 07:37] VITALS: BP 151/75; PULSE 78; RESP 17; TEMP 36.2; O2SAT 97
[2024-08-17 07:39] LABS: Glucose, Whole Blood 108 mg/dL (60-115)
[2024-08-17] MEDS: lamoTRIgine 25 MG TABLET PO (08:44)
[2024-08-17] MEDS: Aspirin 81 MG TAB.CHEW PO (08:44)
[2024-08-17] MEDS: Cholecalciferol (Vitamin D3) 25 MCG TABLET 50 MCG PO (08:44)
[2024-08-17] MEDS: Losartan Potassium 25 MG TABLET PO (08:44)
[2024-08-17] MEDS: Atorvastatin Calcium 40 MG TABLET PO (08:45)
[2024-08-17] MEDS: Tolterodine Tartrate LA 4 MG CAP.ER.24H PO (08:45)
[2024-08-17 11:10] LABS: Glucose, Whole Blood 114 mg/dL (60-115)
[2024-08-17] MEDS: cefuroxime axetiL 250 MG TABLET PO ×2 (11:25→21:47)
[2024-08-17 11:36] VITALS: BP 127/72; PULSE 96; RESP 17; TEMP 36.3; O2SAT 97
--- NOTE | 2024-08-17 13:44 | MHC.CM.PN ---
Addendum entered by Christina Marmolejo 08/17/24 15:43: [facility] and [facility] are unable to offer the pt a STR bed, pts daughter/HCP Cecelia updated. Cecelia states she would prefer to bring her mother home with resumption of [facility] services tomorrow via BLS transport. Hospitalist updated. Original Note: This CM met with pt and her daughter/HCP Cecelia present at bedside to discuss discharge plans. Per Cecelia, she is unsure if she wants her to go to rehab or bring her home with resumption of previous [facility] services. This CM provided a list of local SNF's for Cecelia to review. Cecelia states she would be interested only in [facility] or [facility], referrals placed accordingly, awaiting bed offer.
--- NOTE | 2024-08-17 13:54 | MHC.SL.SWA ---
Dysphasia Diet Status: NO CHANGE Liquid Consistency and Strategies for Safe Swallow: Liquid Intake Recommendation: Thin Solid Food Consistency: Dietary Recommendations: Grnd/Mech Altered (NDD2) Oral Medication Intake: Whole with Puree Please contact the pharmacy regarding appropriate crushable or liquid drug formulations that are available whenever modified delivery is recommended. Compensatory Strategies and Precautions to be Taken for Safe Swallow: Sitting Upright (90 deg) Small Bites and Sips Alternate Liquids/Solids Supervision While Eating and Drinking for Safe Swallow: Direct Supervision (1:1) Foods to Avoid: Difficult to chew solids, too large pieces of food. Swallowing Recommended Treatments: Recommendation for Speech: Inpatient Speech Therapy Comment: Recommend continue w/ GROUND/MECH ALTERED (NDD2) diet and THIN liquids, pills WHOLE in PUREE. Patient will need direct supervision at meal time d/t confusion. Soft sandwiches OK. Frequency/Duration: M-F PRN Fish Peddler Clinican/Clinical Fellow: No Supervisory Statement: I have reviewed and agree with the student/clinical fellow's documentation: N/A Speech Language Pathologist: Yessenia Robles M.A., CCC-TOP LIFT COMPRESSER
[2024-08-17 15:31] LABS: Glucose, Whole Blood 118 mg/dL (60-115)
[2024-08-17 15:39] VITALS: BP 128/67; PULSE 88; RESP 18; TEMP 37; O2SAT 96
--- NOTE | 2024-08-17 18:48 | HO.PM.IMPN ---
Subjective Subjective Date of Service: 08/17/24 Interval History: ? cva Review of Systems mental status improving to baseline no new c/o Review of Systems: Yes all other systems are reviewed and are negative Physical Exam Vital Signs: Vital Signs: Last Vital Signs Temp 98.6 F 08/17/24 15:39 Pulse 88 08/17/24 15:39 Resp 18 08/17/24 15:39 BP 128/67 08/17/24 15:39 Pulse Ox 96 08/17/24 15:39 O2 Del Method Room Air 08/17/24 15:39 O2 Flow Rate 2 08/13/24 22:00 BMI result Body Mass Index 35.1 General: AO X 2(near her baseline per family), no acute distress Resp: CTA bilateral CVS: S1,S2,RRR GI: +BS, NT, no distention Skin: No rash Neuro: motor grossly intact Psych: appropriate affect Const: Other: General: AO X 2, no acute distress Resp: CTA bilateral CVS: S1,S2,RRR GI: +BS, NT, no distention Skin: No rash Neuro: motor grossly intact Psych: appropriate affect Objective Data Active Medications Aspirin (Aspirin 81 Mg Tab.Chew) 81 mg PO DAILY [facility] Last Admin: 08/17/24 08:44 Dose: 81 mg Documented By: MAXIMO Atorvastatin Calcium (Atorvastatin Calcium 40 Mg Tablet) 40 mg PO DAILY [facility] Last Admin: 08/17/24 08:45 Dose: 40 mg Documented By: MAXIMO Cefuroxime Axetil (Cefuroxime Axetil 250 Mg Tablet) 250 mg PO Q12H [facility] Last Admin: 08/17/24 11:25 Dose: 250 mg Documented By: MAXIMO Cyanocobalamin (Cyanocobalamin (Vitamin B-12) 1,000 Mcg Tablet) 1,000 mcg PO MO [facility] Last Admin: 08/16/24 12:29 Dose: 1,000 mcg Documented By: FOSTEKFloresita Fluticasone Propionate (Fluticasone Propionate Nasal 16 Gm [place]) 1 spray NOSTRIL-B DAILY PRN PRN Reason: Allergy Symptoms Heparin Sodium (Porcine) (Heparin Sodium,Porcine 5,000 Unit/Ml Vial) 5,000 unit SUBCUT Q12H [facility] Last Admin: 08/17/24 13:08 Dose: 5,000 unit Documented By: MAXIMO Hydrocortisone (Hydrocortisone 2.5 % Rectal Cr 30 Gm Tube) 1 appl SC DAILY [facility] Last Admin: 08/17/24 12:02 Dose: Not Given Documented By: MAXIMO Non-Admin Reason: Med Not Available Lamotrigine (Lamotrigine 25 Mg Tablet) 25 mg PO DAILY [facility] Last Admin: 08/17/24 08:44 Dose: 25 mg Documented By: MAXIMO Losartan Potassium (Losartan Potassium 25 Mg Tablet) 25 mg PO DAILY [facility]; Protocol Last Admin: 08/17/24 08:44 Dose: 25 mg Documented By: MAXIMO Mirtazapine (Mirtazapine 7.5 Mg Tablet) 7.5 mg PO BEDTIME PRN PRN Reason: Sleep Nystatin (Nystatin Powder 15 Gm Bottle) 1 appl TOPICAL DAILY PRN; Protocol PRN Reason: Fungal Infection Omeprazole (Omeprazole 20 Mg Capsule.Dr) 20 mg PO DAILY@0630 [facility] Last Admin: 08/17/24 06:10 Dose: 20 mg Documented By: ARASH Sodium Chloride (0.9 % Sodium Chloride Flush 3 Ml Syringe) 3 ml IVFLUSH QSHIFT [facility] Last Admin: 08/17/24 16:21 Dose: 3 ml Documented By: MAXIMO Tolterodine Tartrate (Tolterodine Tartrate La 4 Mg Cap.Er.24h) 4 mg PO DAILY [facility] Last Admin: 08/17/24 08:45 Dose: 4 mg Documented By: MAXIMO Vancomycin HCl (Vancomycin Hcl 125 Mg Capsule) 125 mg PO Q6H [facility] Last Admin: 08/17/24 16:23 Dose: 125 mg Documented By: MAXIMO Vitamin D (Cholecalciferol (Vitamin D3) 25 Mcg Tablet) 50 mcg PO DAILY [facility] Last Admin: 08/17/24 08:44 Dose: 50 mcg Documented By: MAXIMO Labs 08/16/24 05:21 08/16/24 05:21 Labs: Laboratory Results - last 24 hr 08/16/24 08/17/24 08/17/24 20:17 07:35 11:04 POC Glucose 103 108 114 08/17/24 15:21 POC Glucose 118 H Microbiology Microbiology Results: Microbiology 08/13/24 Unknown Urine Culture - Final Urine clean catch - Clean Catch Midstream Citrobacter freundii Assessment and Plan (1) Acute CVA (cerebrovascular accident): Status: Acute (2) Seizure disorder: Status: Acute Plan 88-year-old lady with underlying recurrent UTIs, C diff colitis on p.o. vancomycin, prior TIA, underlying seizure disorder on Lamictal, COPD admitted on 08/13/2024 with acute right upper extremity weakness, treated with TNK and admitted to ICU, post TNK she had seizure and ICU course further complicated by Septic shock d/t UTI, sepsis resolved, she is doing better and transfered out of ICU on 08/15 . ? possible CVA symptoms status post TNK. MRI with no evidence of acute CVA. Neurology service care appreciated. mri -neg for cva ASA, add Lipitor in place of pravastatin PT is recommending STR neurology follow up. Seizure disorder, continue Lamictal. Septic shock, urinary source suspected but cultures negative, has been on cefepime, will change to ceftin C dif continue, present on admission, diag on 07/30 continue PO Vanco ? blood in stool, H/H stable, nl monitor HTN restart Losartan GERD PPI Dysphagai, DVT prophylaxis: heparin Full code Quality Stroke Does the patient have a stroke diagnosis?: Yes Reason for No Anti-thrombotic by Day Two: N/A - Med Ordered VTE Prior VTE?: No VTE Risk Level:: Medical - moderate - high VTE Device Contraindication: N/A - Device Ordered VTE Drug Contraindication: Treatment Not Indicated
[2024-08-17 20:00] VITALS: BP 136/69; PULSE 92; RESP 22; TEMP 36.8; O2SAT 95
[2024-08-17 21:05] LABS: Glucose, Whole Blood 121 mg/dL (60-115)
[2024-08-18] VITALS: BP 126/58; PULSE 73; RESP 17; TEMP 36.4; O2SAT 94
[2024-08-18] MEDS: Heparin Sodium,Porcine 5,000 UNIT/ML VIAL 5000 UNIT SUBCUT (03:21)
[2024-08-18 03:31] VITALS: BP 137/67; PULSE 88; RESP 17; TEMP 36.9; O2SAT 94
[2024-08-18] MEDS: vancomycin HCL 125 MG CAPSULE PO ×2 (05:48→10:50)
[2024-08-18] MEDS: Omeprazole 20 MG CAPSULE.DR PO (05:48)
[2024-08-18] MEDS: Tolterodine Tartrate LA 4 MG CAP.ER.24H PO (07:45)
[2024-08-18] MEDS: 0.9 % Sodium Chloride Flush 3 ML SYRINGE IVFLUSH (07:45)
[2024-08-18] MEDS: lamoTRIgine 25 MG TABLET PO (07:46)
[2024-08-18] MEDS: Aspirin 81 MG TAB.CHEW PO (07:46)
[2024-08-18] MEDS: Losartan Potassium 25 MG TABLET PO (07:47)
[2024-08-18] MEDS: Atorvastatin Calcium 40 MG TABLET PO (07:47)
[2024-08-18] MEDS: Cholecalciferol (Vitamin D3) 25 MCG TABLET 50 MCG PO (07:47)
[2024-08-18] MEDS: Hydrocortisone 2.5 % Rectal Cr 30 GM TUBE 1 APPL PR (07:54)
[2024-08-18 08:00] VITALS: BP 138/72; PULSE 81; RESP 18; TEMP 36.3; O2SAT 97
[2024-08-18 09:19] LABS: Lamotrigine Lamictal 0.9 mcg/mL (2.5-15.0)
[2024-08-18] MEDS: cefuroxime axetiL 250 MG TABLET PO (10:50)
--- NOTE | 2024-08-18 11:46 | P.F2F_ITS ---
Service Date Service Date: 08/18/24 Encounter Date of encounter: 08/18/24 Encounter: uti,cva like symptoms -mri showed no cva. Reasons for Services Signs and symptoms assessed: Any new weakness numbness or dysuria or fever. Reason for long term: medication management, medication treatment and teach disease management Reason for physical therapy: home safety and mobility, therapeutic exercises, restore joint function, gait/transfer training, assess need for DME, ADL training, energy conservation and other Homebound: Leaving the home is medically contraindicated at this time without the asist of a device and/or another person due th the listed conditions above and below. Reason homebound: weakness related to hospital stay Homebound supporting statement: Patient is generalised weak post hospitlisation and need help with going to appointments and labs draws as well as PT. Certification: Based on the above findings, I certify that this patient is confined to the home and needs intermittent long term care, physical therapy and/or speech therapy, or continues to need occupational therapy. The patient is under my care, and I have initiated the establishment of the plan of care. The patient will be followed by a physician who will periodically review the plan of care. Time Spent With Patient Time: Total time managing care of this patient today ____ minutes.
--- NOTE | 2024-08-18 11:54 | PM.DS ---
DS: Providers Provider Date of Service: 08/18/24 Date of admission: 08/13/24 21:23 Date of discharge: 08/18/24 Primary care physician: Nicola Lebron MD Consults: 08/13/24 19:05 Consult to Neurology Routine Consulting Provider: [facility] Reason for consultation: cva Has provider been notified: No Attending physician on discharge: Kaden Thurston Discharging clinician: Kaden Thurston DS: Diagnosis Discharge Diagnosis (1) Acute CVA (cerebrovascular accident): Status: Acute (2) Seizure disorder: Status: Acute DS: Summary Hospital Course Hospital Course: HPI: 88-year-old female with underlying history of recurrent UTIs, C diff colitis for which she is still on treatment, prior TIAs, seizure disorder recently placed on Lamictal, GERD, COPD not O2 dependent, hypertension, hyperlipidemia, vitamin-D deficiency among others. ?Patient presented to the emergency room via EMS.? Last well known time was 03:00 in the afternoon however approximately 18:00 the patient was noted to have difficulties speaking, right-sided droop and right-sided neglect was noted by EMS.? She also developed weakness of the right upper extremity as she could not lift this against gravity.? Initial vital signs were unremarkable with a blood sugar greater than 100.? ER physician exam corroborates the above right-sided neglect, right upper extremity weakness Drug facial droop. Images from the emergency room revealed a head CT affected by motion, no acute intracranial process.? Head and neck CT angiogram revealed no definite large vessel occlusion or flow-limiting stenosis. ?Case has been discussed with the neurologist Dr. Albarran in the patient received TNK at 19:27. ?Soon after starting these medications pushing developed a tonic-clonic seizure for which Valium 7.5 mg x 1 was given and then the patient was loaded with Dilantin as she has had issues with Keppra in the recent past. Currently the patient is not able to provide a history.? She appears to be postictal.? A repeat head CT was performed in the emergency room to ensure that there was no hemorrhagic conversion after initiation of tPA; this was negative for ICH; she does have underlying seizure disorder categorize as complex partial events.? The patient is transferred to the ICU for further care. Hospital course: 88-year-old lady with underlying recurrent UTIs, C diff colitis on p.o. vancomycin, prior TIA, underlying seizure disorder on Lamictal, COPD admitted on 08/13/2024 with acute right upper extremity weakness, treated with TNK and admitted to ICU, post TNK she had seizure and ICU course further complicated by Septic shock d/t UTI, sepsis resolved, she is doing better and transfered out of ICU on 08/15 . MRI with no evidence of acute CVA. seen by neuology- no cva on mri ,continue ASA, statin. PT is recommending STR-family declined str and chose to take her home with vna /pt. Seizure disorder, continue Lamictal. Septic shock, urinary source suspected but cultures negative, has been on cefepime, changed to ceftin upon discharge , continue vanco during use of Ceftin and 48 hour after that. Patient has vanco at home also, additional supplies given. C dif continue, present on admission, diag on 07/30 continue PO Vanco, diarrhea improved significantly. ? blood in stool, H/H stable, nl: Patient has hemorrhoids, 1 episode of blood on wipe as per her daughter Cecelia. No further bleeding, H&H stable, patient was given hydrocortisone topical for home. abd us incidental finding: Benign renal cortical cyst on the right. Parapelvic cyst with probable debris left kidney. Follow-up PCP outpatient for further management. Plan: continue asa and statin. complete ceftin 250 mg po bid x5 days. moniter cbc and bmp. follow up with pcp . Above management discussed with the patient and her daughter in detail length, they both understand and in agreement with the above plan, time spent 40 minute, all question answered, staff was present during conversation. Time Attestation Discharge Coordination Time (in mins): 40 Quality: Safe Use of Opioids Does Pt have an Active Cancer Diagnosis on the Problem List?: No Quality: Stroke Does the patient have a stroke diagnosis?: No Physical Exam Vital Signs: Vital Signs: Last Vital Signs Temp 97.3 F 08/18/24 08:00 Pulse 81 08/18/24 08:00 Resp 18 08/18/24 08:00 BP 138/72 08/18/24 08:00 Pulse Ox 97 08/18/24 08:00 O2 Del Method Room Air 08/18/24 08:00 O2 Flow Rate 2 08/13/24 22:00 BMI result Body Mass Index 35.1 General: AO X 2(near her baseline per family), no acute distress Resp: CTA bilateral CVS: S1,S2,RRR GI: +BS, NT, no distention Skin: No rash Neuro: motor grossly intact Psych: appropriate affect DS: Data Data Completed and Pending Completed studies during hospitalization [Text1]: Procedures Drainage of Spinal Canal, Percutaneous Approach, Diagnostic (06/07/24) Fluoroscopy of Spinal Cord (06/07/24) Insertion of Infusion Device into Right Basilic Vein, Percutaneous Approach (06/07/24) Labs on day of discharge: Laboratory Results - last 24 hr 08/13/24 08/17/24 08/17/24 22:42 15:21 20:58 POC Glucose 118 H 121 H Lamotrigine 0.9 L Preliminary micro results at discharge 08/14/24 05:59 Blood Culture - Preliminary Blood - Venous No growth after 48 hours. 08/14/24 05:59 Blood Culture - Preliminary Blood - Venous No growth after 48 hours. Imaging Chest x-ray: My impression: IMPRESSION: No acute infarct or hemorrhage. head ct: IMPRESSION: No acute infarct or hemorrhage. cxr: Impression: No acute findings. cta: IMPRESSION: 1. Image degradation secondary to significant motion artifact. 2. No definite large vessel occlusion or flow-limiting stenosis. abd us: Impression: 1. No nephrolithiasis or hydronephrosis demonstrated. Benign renal cortical cyst on the right. Parapelvic cyst with probable debris left kidney. Decompressed urinary bladder with [place]. Discharge Plan Discharge Anticipated Discharge Date/Time: 08/18/24 11:33 Patient Disposition: Home Health Service Discharge Diagnosis: uti Referrals: Josr GONZALEZ [Outside] - 1 Week (SN, HOME PT/OT AND HOME HEALTH AID) Po,Nicola Emery MD [Primary Care Provider] - 1 Week Discharge Medications: New cefuroxime axetil 250 mg Tablet 250 mg PO Q12H Qty: 14 0RF hydrocortisone [Proctozone-HC] 2.5 % Cream With Perineal Applicator [address] DAILY Qty: 10 0RF vancomycin 125 mg Capsule 125 mg PO Q6H Qty: 28 0RF Continued (DME) PAIN RELIEVING PATCHES WITH HEAT See Rx Instructions .Route .MEDSUPPLY Qty: 60 12RF Rx Instructions: As directed (DME) gloves medium See Rx Instructions .Route .MEDSUPPLY Qty: 1 12RF Rx Instructions: As directed (DME) Contour plus bladder pads See Rx Instructions .Route .MEDSUPPLY Qty: 3 12RF Rx Instructions: As directed (DME) gloves large See Rx Instructions .Route .MEDSUPPLY Qty: 1 12RF Rx Instructions: As directed (DME) underwear pull ups 3 per day XL See Rx Instructions .Route .MEDSUPPLY Qty: 6 12RF Rx Instructions: As directed (DME) Pad liners for bed and chair See Rx Instructions .Route .MEDSUPPLY Qty: 6 12RF Rx Instructions: As directed (DME) flushable toilet wipes See Rx Instructions .Route .MEDSUPPLY Qty: 5 12RF Rx Instructions: As directed (DME) reclining lift chair. See Rx Instructions .Route .MEDSUPPLY Qty: 1 0RF Rx Instructions: As directed omeprazole 20 mg capsule,delayed release(DR/EC) 20 mg PO DAILY@0630 Qty: 90 2RF pravastatin 20 mg tablet 20 mg PO DAILY Qty: 90 2RF aspirin 81 mg tablet,delayed release (DR/EC) 81 mg PO DAILY Qty: 90 3RF losartan 25 mg tablet 25 mg PO DAILY Qty: 30 1RF albuterol sulfate 90 mcg/actuation HFA aerosol inhaler 1 inh inhalation QID PRN (Reason: shortness of breath or wheezing) Qty: 8.5 0RF (DME) Disposable liners/shield/[id number] See Rx Instructions .Route .MEDSUPPLY Qty: 312 12RF Rx Instructions: BÁRBARA 99 As directed (DME) Disposable liner/shield/pad See Rx Instructions .Route .MEDSUPPLY Qty: 312 12RF Rx Instructions: As directed nystatin 100,000 unit/gram powder 1 appl topical DAILY PRN (Reason: Fungal Infection) mirtazapine 7.5 mg tablet 7.5 mg PO BEDTIME PRN (Reason: Sleep) cyanocobalamin (vitamin B-12) [Vitamin B-12] 1,000 mcg Tablet 1,000 mcg PO MO cholecalciferol (vitamin D3) [Vitamin D3] 50 mcg (2,000 unit) Tablet 50 mcg PO DAILY estradiol 0.01 % (0.1 mg/gram) cream 1 g vaginal TUTH fluticasone propionate 50 mcg/actuation spray,suspension 1 spray intranasal DAILY PRN (Reason: Allergy Symptoms) lamotrigine 25 mg tablet 25 mg PO DAILY solifenacin 5 mg tablet 5 mg PO DAILY vancomycin 125 mg capsule 125 mg PO QID 10 Days Qty: 28 0RF Rx Instructions: End date 08/15/24 acetaminophen [Tylenol Extra Strength] 500 mg tablet 1,000 mg PO Q6H PRN (Reason: Pain) (DME) EASY RISE WALKER See Rx Instructions .Route .MEDSUPPLY Qty: 1 0RF Rx Instructions: As directed (DME) BATH AND SHOWER STEP WITH HANDLE See Rx Instructions .Route .MEDSUPPLY Qty: 1 0RF Rx Instructions: As directed Discharge Orders: Discharge Order (Routine); Ordered 08/18/24 Ordered By: Kaden Thurston Diet: Advance to usual diet Activity on Discharge: As tolerated Stand Alone Forms: Patient Portal Discharge page Print Language: Armenian Other Ambulatory Orders: Complete Blood Count no Diff (Routine) Timeframe: 1 Week Facility: [facility] - Location: Laboratory Ordered By: Kaden Thurston Care Plan Goals: continue asa and statin. complete ceftin 250 mg po bid x5 days. moniter cbc and bmp. follow up with pcp . Health Concerns: as above. Plan of Treatment: as above. Assessment: as above. Patient Instructions: Urinary Tract Infection in Women (GEN), Ischemic Stroke (GEN) Discharge Date/Time: 08/18/24 14:43
[2024-08-18 12:00] VITALS: BP 120/61; PULSE 86; RESP 18; TEMP 36.4; O2SAT 96
[2024-08-18 12:27] LABS: Glucose, Whole Blood 102 mg/dL (60-115)
[2024-08-18 12:36] LABS: Glucose, Whole Blood 105 mg/dL (60-115)
--- NOTE | 2024-08-18 13:21 | MHC.CM.PN ---
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
== END 2024-08-18 14:43 | disposition home health service (06) | DRG 61 ==
LOC: HO.ED 21:10 → HO.EDOVER 21:35 → HO.ICU 21:46 → HO.IMC 08-15 12:30
PROVIDERS: Internal Medicine; Internal Medicine Pulmonary Disease; Admitting Provider Physician Assistant Medical; Emergency Provider Emergency Medicine Emergency Medical Services; PCP Internal Medicine; Visit Provider Internal Medicine
DX: I63.9 Cerebral infarction, unspecified (principal); A41.9 Sepsis, unspecified organism; R65.21 Severe sepsis with septic shock; G81.91 Hemiplegia, unspecified affecting right dominant side; G40.209 Localization-related (focal) (partial) symptomatic epilepsy and epileptic syndromes with complex partial seizures, not intractable, without status epilepticus; A04.72 Enterocolitis due to Clostridium difficile, not specified as recurrent; N39.0 Urinary tract infection, site not specified; K64.9 Unspecified hemorrhoids; R13.10 Dysphagia, unspecified; K21.9 Gastro-esophageal reflux disease without esophagitis; R29.719 NIHSS score 19; F01.50 Vascular dementia, unspecified severity, without behavioral disturbance, psychotic disturbance, mood disturbance, and anxiety; R29.810 Facial weakness; Z20.822 Contact with and (suspected) exposure to COVID-19; Z87.440 Personal history of urinary (tract) infections; Z79.82 Long term (current) use of aspirin; Z79.899 Other long term (current) drug therapy
CPT/HCPCS: 0241U; 36415; 70450; 70496; 70498; 70551; 71045; 76705; 80048; 80053; 80061; 80175; 81001; 82947; 83605; 83735; 84100; 84484; 85025; 85610; 85730; 87040; 87086; 87088; 87186; 92526; 92610; 93005; 93308; 97116; 97163; 97166; 97530; 99285; J0692; J0696; J1165; J1171; J1630; J1644; J1836; J2250; J2470; J3101; J3360; J7120; P9047; Q9957; Q9967

== ENCOUNTER → 2024-08-13 19:05 | Outpatient (BNV) | payer OTHER, SELFPAY | PROVIDERS: Emergency Provider Emergency Medicine Emergency Medical Services; Visit Provider Radiology Diagnostic Radiology | DX: I63.9 Cerebral infarction, unspecified (principal) | CPT/HCPCS: 70450; 70496; 70498 ==

== ENCOUNTER → 2024-08-13 19:05 | Outpatient (BNV) | payer OTHER, SELFPAY | PROVIDERS: Admitting Provider Physician Assistant Medical; Emergency Provider Emergency Medicine Emergency Medical Services; PCP Internal Medicine; Visit Provider Internal Medicine Cardiovascular Disease | DX: I49.3 Ventricular premature depolarization (principal); I45.10 Unspecified right bundle-branch block; R00.0 Tachycardia, unspecified | CPT/HCPCS: 93010 ==

== ENCOUNTER 2024-08-13 21:23 | Outpatient (BNV) | payer OTHER, SELFPAY | END 2024-08-16 21:23 | PROVIDERS: Admitting Provider Physician Assistant Medical; Emergency Provider Emergency Medicine Emergency Medical Services; PCP Internal Medicine; Visit Provider Internal Medicine Cardiovascular Disease | DX: I35.8 Other nonrheumatic aortic valve disorders (principal); I63.9 Cerebral infarction, unspecified; Z92.82 Status post administration of tPA (rtPA) in a different facility within the last 24 hours prior to admission to current facility | CPT/HCPCS: 93308 ==

== ENCOUNTER 2024-08-13 21:23 | Outpatient (BNV) | payer OTHER, SELFPAY | END 2024-08-14 10:28 | PROVIDERS: Admitting Provider Physician Assistant Medical; Emergency Provider Emergency Medicine Emergency Medical Services; PCP Internal Medicine; Visit Provider Radiology Diagnostic Radiology | DX: I67.82 Cerebral ischemia (principal); N28.1 Cyst of kidney, acquired | CPT/HCPCS: 70551; 76705 ==

== ENCOUNTER → 2024-08-13 21:23 | Outpatient (BNV) | payer OTHER, SELFPAY | PROVIDERS: Admitting Provider Physician Assistant Medical; Emergency Provider Emergency Medicine Emergency Medical Services; PCP Internal Medicine; Visit Provider Internal Medicine | DX: I63.9 Cerebral infarction, unspecified (principal); G40.909 Epilepsy, unspecified, not intractable, without status epilepticus | CPT/HCPCS: 99231; 99232; 99499; G0180 ==

== ENCOUNTER → 2024-08-13 21:23 | Outpatient (BNV) | payer OTHER, SELFPAY | PROVIDERS: Admitting Provider Physician Assistant Medical; Emergency Provider Emergency Medicine Emergency Medical Services; PCP Internal Medicine; Visit Provider Psychiatry & Neurology Neurology | DX: I63.9 Cerebral infarction, unspecified (principal) | CPT/HCPCS: 99222 ==

== ENCOUNTER → 2024-08-13 21:23 | Outpatient (BNV) | payer OTHER, SELFPAY | PROVIDERS: Admitting Provider Physician Assistant Medical; Emergency Provider Emergency Medicine Emergency Medical Services; PCP Internal Medicine; Visit Provider Physician Assistant Medical | DX: I63.9 Cerebral infarction, unspecified (principal) | CPT/HCPCS: 99291 ==

== ENCOUNTER → 2024-08-13 21:23 | Outpatient (BNV) | payer OTHER, SELFPAY | PROVIDERS: Admitting Provider Physician Assistant Medical; Emergency Provider Emergency Medicine Emergency Medical Services; PCP Internal Medicine; Visit Provider Internal Medicine Pulmonary Disease | DX: J43.9 Emphysema, unspecified (principal); G40.909 Epilepsy, unspecified, not intractable, without status epilepticus; N39.0 Urinary tract infection, site not specified | CPT/HCPCS: 99232; 99291 ==

== ENCOUNTER 2024-08-30 09:57 | Outpatient (AMB) | payer OTHER, SELFPAY ==
--- NOTE | 2024-08-30 10:04 | A.OFFPC_ITS ---
Vital Signs 3 08/30/24 10:09 Height 5 ft 4 in Weight 192 lb 4 oz BMI 33.0 BP 116/64 Blood Pressure Location Lt brachial Position Sitting Pulse 86 Pulse Source Pulse Oximeter Temp 97.4 F Temp Source Temporal Artery Scan Pulse Oximetry (%) 98 Oxygen Delivery Method Room Air Intake Visit Reasons: [facility] 08/18 UTI ? TIA Accompanied by: Daughter Allergies lisinopril Allergy (Unknown, Verified 08/30/24 10:06) cough Amlodipine Adverse Reaction (Intermediate, Uncoded 08/30/24 10:06) Leg swelling Medication List - Last Reconciled 08/30/24 by Nicola Lebron MD acetaminophen (Tylenol Extra Strength) 1,000 mg PO Q6H PRN albuterol sulfate 90 mcg/actuation 1 inh inhalation QID PRN aspirin 81 mg PO DAILY [BATH AND SHOWER STEP WITH HANDLE As directed] cholecalciferol (vitamin D3) (Vitamin D3) 50 mcg PO DAILY [Contour plus bladder pads As directed] cyanocobalamin (vitamin B-12) (Vitamin B-12) 1,000 mcg PO MO [Disposable liner/shield/pad As directed] [Disposable liners/shield/[id number] BÁRBARA 99 As directed] [EASY RISE WALKER As directed] estradiol 0.01%(0.1mg/gram) 1 g vaginal TUTH [flushable toilet wipes As directed] fluticasone propionate 50 mcg/actuation 1 spray intranasal DAILY PRN [gloves As directed] [gloves As directed] hydrocortisone 2.5% (Proctozone-HC) 1 appl WI DAILY lamotrigine 25 mg PO DAILY losartan 25 mg PO DAILY mirtazapine 7.5 mg PO BEDTIME PRN nystatin 1 appl topical DAILY PRN omeprazole 20 mg PO DAILY@0630 [Pad liners for bed and chair As directed] [PAIN RELIEVING PATCHES WITH HEAT As directed] pravastatin 20 mg PO DAILY [reclining lift chair. As directed] solifenacin 5 mg PO DAILY sulfamethoxazole-trimethoprim 200-40 mg/5 mL 5 mL PO 3XW 30 days [underwear pull ups 3 per day As directed] vancomycin 125 mg PO QID 10 days vancomycin 125 mg PO Q6H Tobacco use date assessed: 08/30/24 Fall risk assessment: No Falls in past year Last assessed Fall Risk: 08/30/24 Dental Screening Dental Screen Date: 08/30/24 Did you have a dental visit in the last 12 months?: No Did you have a dental problem in the last 6 months where you did not have access to dental care?: No Was dental information given to patient?: Patient has dentist HPI TCM 2 TCM Information0 Date of Discharge 08/18/24 Discharged From [facility] Interactive Contact Date (Reference documentation from this date) 08/19/24 [facility] Medical History Recurrent UTI Altered mental status Acute encephalopathy Bilateral arm pain Osteoarthritis of knees, bilateral TIA (transient ischemic attack) Seizure disorder Knee osteoarthritis Urinary incontinence GERD (gastroesophageal reflux disease) COPD (chronic obstructive pulmonary disease) Obesity (BMI 30-39.9) Hypertension UTI (urinary tract infection) Hypertriglyceridemia Impaired glucose tolerance Vitamin D deficiency Surgical History H/O oophorectomy History of abdominal hysterectomy History of bilateral cataract extraction H/O left wrist surgery Family History Father No problems noted. Mother Past heart attack Sister Diabetes Brother Prostate cancer Social History Household Members: Family and Children Household Members Other:: Daughter, son-in-law Housing: House Do you presently have visiting nurse or other home services: Yes (PT finished last Fri, [facility] after recent hospitalization) Alcohol intake: never Comment: [phone] Patient Tobacco Use Status: Never used Tobacco Tobacco use type: Cigarette e-Cigarette/Vaping Use: Never Used Second Hand Smoke Exposure: No Advance Directives Date on File: 12/23/23 service: No Current occupational status: retired Cognitive needs: Yes (cane, walker) Hearing needs: No Vision needs: Yes (glasses) Questionnaire PHQ-9 Over the last 2 weeks, how often have you been bothered by any of the following problems? 1. Little interest or pleasure in doing things: not at all 2. Feeling down, depressed, or hopeless: not at all 3. Trouble falling or staying asleep, or sleeping too much: not at all 4. Feeling tired or having little energy: not at all 5. Poor appetite or overeating: not at all 6. Feeling bad about yourself - or that you are a failure or have let yourself or your family down: not at all 7. Trouble concentrating on things, such as reading the newspaper or watching television: not at all 8. Moving or speaking so slowly that other people could have noticed. Or the opposite - being so fidgety or restless that you have been moving around a lot more than usual: not at all 9. Thoughts that you would be better off or of hurting yourself in some way: not at all Total score: 0 Depression Screening Interpretation: Negative Depression Screening Done: Yes Source: Developed by Drs. Gabriel Jiménez, Krupa Paez, Jesus Quintana and colleagues, with an educational akila from [employer]. Thrive Questionnaire Date Thrive assessed: 08/14/24 I am a: Patient What is your living situation today?: I have a steady place to live Within the past 12 months, did the food you bought not last and you didn't have the money to get more?: Never true Within the past 12 months, did you worry whether your food would run out before you got money to buy more?: Never true Do you have trouble paying for medicines?: No Do you have trouble getting transportation to medical appointments?: No Do you have trouble paying your heating and electricity bill?: No Do you have trouble taking care of your child, family member or friend?: No Do you have trouble with day-to-day activities such as bathing, preparing meals, shopping, managing finances, etc.?: No Are you currently unemployed and looking for a job?: No Are you interested in more education?: No Please select the resources that you would like help with: None Currently or been in a relationship where the following occur: No concerns reported THRIVE Score: 0 AUDIT C Alcohol Use Questionnaire (AUDIT-C) 1. How often do you have a drink containing alcohol?: Never 3. How often do you have six or more drinks on one occasion?: Never Total Score: 0 RUBINA-7 AMB Questionnaire RUBINA-7 Date RUBINA - 7 assessed: 05/04/24 Feeling nervous, anxious, or on edge: 0 = Not at all Not being able to stop or control worryin = Not at all Worrying too much about different things: 0 = Not at all Trouble relaxin = Not at all Being so restless that it is hard to sit still: 0 = Not at all Becoming easily annoyed or irritable: 0 = Not at all Feeling afraid as if something awful might happen: 0 = Not at all Total RUBINA-7 score (0-4 normal; 5-9 mild; 10-14 moderate; 15-21 severe): 0 Source: Developed by Drs. Gabriel Jiménez, Krupa Paez, Jesus Quintana and colleagues, with an educational akila from [employer]. Physical exam (Primary Care) Vital Signs: Last Vital Signs Temp 97.4 F 08/30/24 10:09 Pulse 86 08/30/24 10:09 BP 116/64 08/30/24 10:09 Pulse Ox 98 08/30/24 10:09 Oxygen Delivery Method Room Air 08/30/24 10:09 BMI result Body Mass Index 33.0 Tobacco/Smoking Status: Tobacco use Status Tobacco use date assessed 08/30/24 08/30/24 10:08 Patient Tobacco Use Status Never used Tobacco 08/30/24 10:04 Tobacco use type Cigarette 08/30/24 10:04 e-Cigarette/Vaping Use Never Used 08/30/24 10:04 PHQ-9: PHQ-9 Score PHQ-9: Total score 0 08/30/24 10:18 Depression Screening Interpretation: Negative Thrive Assessment: Date of Thrive Assessment Date Thrive assessed 08/14/24 08/30/24 10:04 Currently or been in a relationship where the following occur: No concerns reported Const General: alert; No acute distress Eyes Conjunctivae: conjunctivae normal Resp Auscultation: clear to auscultation bilaterally Cardio Rate: regular rate Rhythm: regular rhythm GI Inspection: Yes normal to inspection Back/Spine/Pelvis Back/spine/pelvis image: 2 1. 1 cm ulcer no redness Extrem General: Yes normal to inspection and No edema Coding Level of Care Code Est Pt Level 4 (02073) Complex EM visit Add On G2211 Diagnoses Acute CVA (cerebrovascular accident) I63.9 Obesity (BMI 30-39.9) E66.9 Pulmonary emphysema, unspecified emphysema type J43.9 COPD type: emphysema Emphysema type: unspecified Gastroesophageal reflux disease without esophagitis K21.9 Esophagitis presence: without esophagitis Seizure disorder G40.909 Generalized anxiety disorder F41.1 Left leg swelling M79.89 Pressure ulcer L89.90 C. difficile diarrhea A04.72 Assessment & Plan Assessment & Plan (1) Acute CVA (cerebrovascular accident): Code(s): I63.9 - Cerebral infarction, unspecified Category: Medical Plan: Patient had TNK infusion and discharged on aspirin (2) Obesity (BMI 30-39.9): Code(s): E66.9 - Obesity, unspecified Category: Medical Plan: Diet and exercise (3) COPD (chronic obstructive pulmonary disease): Code(s): J44.9 - Chronic obstructive pulmonary disease, unspecified Category: Medical Qualifiers: COPD type: emphysema Emphysema type: unspecified Qualified Code(s): J 43.9 - Emphysema, unspecified Plan: On albuterol inhaler as needed (4) GERD (gastroesophageal reflux disease): Code(s): K21.9 - Gastro-esophageal reflux disease without esophagitis Category: Medical Qualifiers: Esophagitis presence: without esophagitis Qualified Code(s): K21.9 - Gastro-esophageal reflux disease without esophagitis Plan: Avoid the foods that causes that usually spicy foods, tomato products, juices, coffee, soda and foods that your sensitive to. After eating do not lie down, allow 3-4 hours before in lie down. And keep the head of bed above 30 degrees to avoid the acid from going up. (5) Seizure disorder: Code(s): G40.909 - Epilepsy, unspecified, not intractable, without status epilepticus Category: Medical Plan: Continue to follow-up with Neurology placed on lamotrigine (6) Generalized anxiety disorder: Code(s): F41.1 - Generalized anxiety disorder Category: Medical Plan: Continue supportive treatment (7) Left leg swelling: Code(s): M79.89 - Other specified soft tissue disorders Category: Medical (8) Pressure ulcer: Comment: R gluteal area Code(s): L89.90 - Pressure ulcer of unspecified site, unspecified stage Category: Medical Plan: barrier cream and wound care (9) C. difficile diarrhea: Code(s): A04.72 - Enterocolitis due to Clostridium difficile, not specified as recurrent Category: Medical Plan History of Present Illness The patient is an 88-year-old female presenting with recurrent urinary tract infections and oversight of current seizure treatment. In July 2024, she experienced an acute episode characterized by speech difficulty, facial asymmetry, and unilateral weakness, suggestive of a cerebrovascular event. Imaging ruled out significant vascular obstruction. Following tenecteplase intervention, a seizure occurred, necessitating antiepileptic medication adjustment. Clostridioides difficile infection was identified and treated with specific antibiotics. Throughout this period, there has been discussion about her seizure management, specifically regarding the impact of lamotrigine on her behavior. Her clinical course was complicated by a severe urinary infection leading to septic shock, yet recent evaluations exhibit no evidence of cerebrovascular accidents. Management details include the use of lamotrigine for seizures, preventative measures against further urinary tract infections, and comprehensive COPD management. Current therapeutic discussions emphasize the decision-making process regarding antibiotic prophylaxis and ongoing support for cognitive and physical rehabilitation. Health Maintenance - Continuation of statins for hypercholesterolemia management. - Aspiring for preventive cardiovascular health post-CVA. - Encouragement of physical therapy exercises for mobility and musculoskeletal health. - Regular follow-up appointments with neurology and urology. Social History - The patient resides in [place], whose mobility and exercise are limited. - Support from family appears to be her primary care and accompaniment to healthcare appointments. Review of Systems - Neurological: Reports altered behavior and cognitive impairment, denies seizures since medication adjustment. - Gastrointestinal: Reports history of Clostridioides difficile colitis, denies current symptoms. - Genitourinary: Reports recurrent UTIs. - Cardiovascular/Pulmonary: Denies acute cardiovascular symptoms, managed COPD. Physical Exam - Neurological Examination- Noted altered behavior due to seizure medication without acute neurological deficits noted. Results - CT angiogram: No occlusion or stenosis identified. - CT head: No hemorrhage detected. - MRI: No evidence of cerebrovascular accident. Plan The patient?s seizure disorder will continue to be managed with lamotrigine, accounting for any behavioral changes. Exploration of neurologic specialist consultation is planned. For recurrent urinary tract infections, a low-dose trimethoprim-sulfamethoxazole regimen will be considered, monitoring for any adverse gastrointestinal effects. Cardiovascular protection is addressed with aspirin and statins, and COPD management includes use of inhaler therapy. Physical therapy is advised to assist mobility and prevent thromboembolic events, while education on maintaining activity is stressed. Patient was informed and verbally consented to the use of an ambient scribe for clinic note documentation during this visit. Discussion Notes During this visit, I discussed the patient?s ongoing seizure management and the necessary continuation of lamotrigine, acknowledging its effects on the patient?s behavior. I recommended consulting another neurologist to reassess her case, owing to current dissatisfaction with care. We explored the benefits and risks of initiating low-dose trimethoprim-sulfamethoxazole prophylaxis against recurrent UTIs, emphasizing the potential for gastrointestinal issues. The patient?s ongoing cardiovascular and pulmonary management was reviewed, highlighting the role of aspirin and statin in her regimen. Physical therapy was discussed as integral for her recovery and prevention of complications. Finally, I advised on maintaining activity levels to enhance circulation, with the necessary adjustments in daily living to support overall care objectives. Patient Instructions - Take lamotrigine as prescribed and monitor for changes in behavior. - Follow up with neurology for potential change in specialist. - Begin trimethoprim-sulfamethoxazole as directed for UTI prevention; notify if GI issues arise. - Use aspirin and statin daily for cardiovascular health. - Use albuterol inhaler as needed for COPD. - Engage in physical therapy exercises regularly. - Keep legs elevated when resting to improve circulation. - Schedule follow-up appointments with urologist and neurologist as directed. Orders: Orders 2 US venous duplex LE LT Today M79.89 - Other specified soft tissue disorders CDiff Gene PCR Today A04.72 - Enterocolitis due to Clostridium difficile, not specified as recurrent UA CC w/rflx Micro + Cult Today N39.0 - Urinary tract infection, site not specified, R30.0 - Dysuria UA CC w/rflx Micro + Cult 1 Month N39.0 - Urinary tract infection, site not specified, R30.0 - Dysuria Referrals 2 Neurology Referral I63.9 - Cerebral infarction, unspecified Medications: New 2 [HOSPITAL BED] As directed 1 ea 0RF I63.9 - Cerebral infarction, unspecified sulfamethoxazole-trimethoprim 200-40 mg/5 mL 5 mL PO 3XW 65 mL 1RF 30 days N39.0 - Urinary tract infection, site not specified
[2024-08-30 10:09] VITALS: BP 116/64; PULSE 86; TEMP 36.3; O2SAT 98; BMI 33.0
== END 2024-08-30 10:59 | disposition home or self-care (01) ==
LOC: HO.HMCH 09:58
PROVIDERS: PCP Internal Medicine; Visit Provider Internal Medicine
DX: I63.9 Cerebral infarction, unspecified (principal); J43.9 Emphysema, unspecified; G40.909 Epilepsy, unspecified, not intractable, without status epilepticus; E66.9 Obesity, unspecified; Z68.33 Body mass index [BMI] 33.0-33.9, adult; K21.9 Gastro-esophageal reflux disease without esophagitis; F41.1 Generalized anxiety disorder; M79.89 Other specified soft tissue disorders; L89.90 Pressure ulcer of unspecified site, unspecified stage; A04.72 Enterocolitis due to Clostridium difficile, not specified as recurrent

== ENCOUNTER → 2024-08-30 09:57 | Outpatient (BNVA) | payer OTHER, SELFPAY | PROVIDERS: PCP Internal Medicine; Visit Provider Internal Medicine | DX: E66.9 Obesity, unspecified (principal); Z68.33 Body mass index [BMI] 33.0-33.9, adult; J43.9 Emphysema, unspecified; K21.9 Gastro-esophageal reflux disease without esophagitis; G40.909 Epilepsy, unspecified, not intractable, without status epilepticus; F41.1 Generalized anxiety disorder; M79.89 Other specified soft tissue disorders; L89.319 Pressure ulcer of right buttock, unspecified stage; A04.72 Enterocolitis due to Clostridium difficile, not specified as recurrent; Z86.73 Personal history of transient ischemic attack (TIA), and cerebral infarction without residual deficits; Z13.31 Encounter for screening for depression | CPT/HCPCS: 96127; 99212 ==

== ENCOUNTER 2024-08-31 13:49 | Outpatient (REF) | payer OTHER, SELFPAY ==
--- NOTE | ~2024-08-31 | US_ITS ---
EXAMINATION: US TRIPLEX LOWER EXTREMITY, LEFT CLINICAL INFORMATION: Edema, left leg swelling COMPARISON: None available. TECHNIQUE: Color-flow triplex imaging with spectral analysis and compression Doppler were performed on the left lower extremity. FINDINGS: Respiratory variation, normal compression and augmented flow are noted throughout the left lower extremity. The visualized common femoral vein, superficial femoral vein, profunda femoral vein, popliteal vein and midcalf peroneal venous segments show no evidence of deep venous thrombosis. Posterior tibial veins were not well demonstrated. US/US venous duplex LE LT IMPRESSION: No evidence of deep venous thrombosis involving the left lower extremity. Electronically signed by: Erasmo Gay MD 08/31/2024 02:58 PM EDT
--- OUTSIDE RECORDS SUMMARY | 2024-08-31 16:23 | XMS_ITS | Data Portability ---
Author Organization [facility], [facility] Address [address] [place] [address] Care Team Providers Care Stove Refinisher Name Role Phone HIM PAMELA OTHER Assessment Encounter Date Assessment Date Assessment LastModified by Organization Details LastModified Time 08/13/2024 08/13/2024 service called for confusion found 88 tigre with hx HTN family c/o acute onset today slurred speech, confusion last known well this AM VSS reported facial droop, L hand weakness, slurred speech #Acute stroke activate EMS vkudesia Not available 08/13/2024 21:41:20 Plan of Treatment Reminders Order Date Submit Date Provider Last Modified By Organization Details Last Modified Time Details Appointments None record ed. Lab None record ed. Referral None record ed. Procedures None record ed. Surgeries None record ed. Imaging None record ed. Medication Orders None record ed. Patient TargetsNo targets recorded. Patient InstructionsNo instructions recorded. Reason for Referral None Reported. Medical Equipment None Reported. Allergies No known drug allergies Medications Name Sig Start Date Stop Date Status Note LastModified by Organization Details LastModified Time nitrofuranto in macrocrystal 50 mg capsule TAKE 1 CAPSULE ORALLY BEDTIME MUST ADMINISTER WITH A MEAL/FOOD active Not Available Not Available No t Available cephalexin 250 mg capsule TAKE 1 CAPSULE BY MOUTH EVERY DAY active Not Available Not Available No t Available levofloxacin 250 mg tablet TAKE 1 TABLET BY MOUTH EVERY DAY FOR 5 DAYS active Not Available Not Available No t Available sulfamethoxa zole 800 mg-trimethop rim 160 mg tablet TAKE 1 TABLET BY MOUTH TWICE A DAY active Not Available Not Available No t Available aspirin 81 mg tablet,delay ed release TAKE 1 TABLET BY MOUTH EVERY DAY active Not Available Not Available No t Available vancomycin 125 mg capsule TAKE 1 CAPSULE BY MOUTH 4 TIMES A DAY FOR 10 DAYS active Not Available Not Available Not Available lamotrigine 25 mg tablet TAKE 1 TABLET BY MOUTH EVERY DAY active Not Available Not Available No t Available losartan 25 mg tablet TAKE 1 TABLET BY MOUTH DAILY active Not Available Not Available Not Available omeprazole 20 mg capsule,fabiana yed release TAKE 1 CAPSULE BY MOUTH EVERY DAY AT 6:30 AM active Not Available Not Available No t Available ammonium lactate 12 % topical cream PLEASE SEE ATTACHED FOR DETAILED DIRECTIONS active Not Available Not Available N ot Available pravastatin 20 mg tablet TAKE 1 TABLET BY MOUTH EVERY DAY active Not Available Not Available No t Available cefuroxime axetil 500 mg tablet TAKE 1 TABLET BY MOUTH EVERY 12 HOURS FOR 5 DAYS active Not Available Not Available N ot Available estradiol 0.01% (0.1 mg/gram) vaginal cream INSERT 1G VAGINALLY 2 TIMES A WEEK active Not Available Not Available No t Available albuterol sulfate HFA 90 mcg/actuatio n aerosol inhaler 1 INH INHALED 4 TIMES A DAY NEEDED FOR SHORTNESS OF BREATH OR WHEEZING active Not Available Not Available Not Available ketoconazole 2 % topical cream APPLY TO UNDER THE BREAST AND UNDER BELLY FOLD TOPICALLY DAILY active Not Available Not Available No t Available fluticasone propionate 50 mcg/actuatio n nasal spray,suspen fredo SPRAY 1 SRPAY INTRANASALL Y DAILY active Not Available Not Available No t Available divalproex ER 250 mg tablet,exten ded release 24 hr TAKE 1 TABLET BY MOUTH EVERY DAY AT BEDTIME FOR 30 DAYS active Not Available Not Available No t Available mirtazapine 7.5 mg tablet TAKE 1 TABLET BY MOUTH EVERYDAY AT BEDTIME active Not Available Not Available No t Available nitrofuranto in monohydrate/ macrocrystal s 100 mg capsule TAKE 100MG ORALLY EVERY 12 HOURS FOR 7 DAYS MUST ADMINISTER WITH A MEAL/FOOD active Not Available Not Available No t Available solifenacin 5 mg tablet TAKE 1 TABLET BY MOUTH EVERY DAY active Not Available Not Available No t Available mirabegron ER 25 mg tablet,exten ded release 24 hr TAKE 1 TABLET BY MOUTH DAILY active Not Available Not Available Not Available guaifenesin ER 600 mg tablet, extended release 12 hr TAKE 1 TABLET BY MOUTH TWICE A DAY active Not Available Not Available No t Available Vitals None Recorded Social History None recorded. Functional Status None recorded. Mental Status None recorded. Family History Nothing Reported. Medical History No medical history recorded. Gynecological HistoryNo gynecological history recorded. Obstetrics History GPAL:G 0 P 0 0 0 0 Past Encounters Encounter ID Performer Location Encounter Start Date Encounter Closed Date Diagnosis/Indication Diagnosis SNOMED-CT Code Diagnosis ICD10 Code Diagnosis Note [id number] Arun Houston MD Main - [address] [address] 08/13/2024 18:28:50 08/14/2024 14:01:31 Cerebrovascular accident [id number] I63.9 Health Concerns Section Related Observation LastModified by Organization Detai ls LastModified Time None Recorded Concern Status LastModified by Organization Details LastModified Time None Recorded Advance Directives Directive None Recorded Payers Insurance Date Sequence Insurance Name Policy Number Policy Schroeder Covered Member ID Schroeder Member ID Guarantor Name 08/13/2024 1 [facility] - DOS ON OR AFTER 2022 - DUAL ELIGIBLE - LONG TERM OPTIONS AND ONE CARE (MEDICARE REPLACEMENT/AD VANTAGE - HMO) Nisreen Avery [id number] Nisreen Avery Notes Date Note Type Note Provider Name and Address Organization Details Recorded Time 08/13/2024 text/html [facility] Nurse Triage Notes (Gorge Gallego): Reason For Request: Possible UTI Chief Complaints: Urinary Symptoms PMH: Urinary Tract Infections (UTI), Hypertension PMH Reviewed at 08/13/2024 - :46 Allergies Reviewed at 08/13/2024 - 17:46 Comments: Additional PMH: Encephalitis 88 y.o female complains of Urinary Symptoms Patient's daughter calling reporting patient may have another UTI. Daughter reports pt is more confused then normal and not understanding me . Daughter reports she is having difficulty understanding the patient as well. Daughter reports this is similar presentation to last UTI. Daughter would like to avoid going to the hospital as it makes patient more agitated. Patient also with recent diagnosis of C. Diff, pt still on antibiotics for the C. Diff. Daughter states she did start patient on Bactrim today for probable UTI. I provided information on the mobile health provider response time and advised the patient and/or caregiver to monitor reported signs and symptoms. I discussed the warning signs of when to seek emergency care -Kumar Gallego RN ................... ................... ................... ................... ................... ................... ................... ........ Wafer Fabrication Technician Note From [place]: Was dispatched for a 88 Y/O female with a possible UTI. UOA PT family reported they noticed she wasn't acting normal since she came home at 3pm today with slurred speech and weakness. PT was found sitting in a chair. PT did appear to be in distress. 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 [facility] was contacted and informed of the PT symptoms and recommended 911 to be contacted, [facility] agreed with findings. 911 was contacted, [facility] arrived on scene and agreed with the findings, and transported PT to [facility] for a possible stroke. [facility] cleared ................... ................... ................... ................... ................... ................... ................... ........ [facility] Consulted: Arun Houston ................... ................... ................... ................... ................... ................... ................... ........ Disposition: Fulfilled Arun Houston MD [address] [facility],[address], [place], [address], PABLO - InnozJAVIER BHAGAT 08/13/2024 21:41:50 OBGyn Episode No OBEpisode recorded.
== END 2024-08-31 13:50 | disposition home or self-care (01) ==
LOC: HO.US 13:49
PROVIDERS: Visit Provider Internal Medicine
DX: R60.0 Localized edema (principal)
CPT/HCPCS: 93971

== ENCOUNTER → 2024-08-31 13:50 | Outpatient (BNV) | payer OTHER, SELFPAY | PROVIDERS: Visit Provider Radiology Diagnostic Radiology | DX: R22.42 Localized swelling, mass and lump, left lower limb (principal) | CPT/HCPCS: 93971 ==

== ENCOUNTER 2024-09-03 10:20 | Outpatient (REF) | payer OTHER, SELFPAY ==
--- OUTSIDE RECORDS SUMMARY | 2024-09-03 11:18 | XMS_ITS | Data Portability ---
Author Organization [employer] [facility] [place] [employer] [facility] Address [address] [place] [address] Care Team Providers Care Soa Integration Architect Name Role Phone HIM PAMELA OTHER Assessment [...] SNOMED-CT Code Diagnosis ICD10 Code Diagnosis Note [id number] Arun Houston MD Main - [address] [address] 08/13/2024 18:28:50 08/14/2024 14:01:31 Cerebrovascular accident [id number] I63.9 Health Concerns Section Related Observation LastModified by Organization Detai ls LastModified Time None Recorded Concern Status LastModified by Organization Details LastModified Time None Recorded Advance Directives Directive None Recorded Payers Insurance Date Sequence Insurance Name Policy Number Policy Schroeder Covered Member ID Schroeder Member ID Guarantor Name 08/13/2024 1 [facility] - DOS ON OR AFTER 2022 - DUAL ELIGIBLE - CARE HOME OPTIONS AND ONE CARE (MEDICARE REPLACEMENT/AD VANTAGE - HMO) Nisreen Avery [id number] Nisreen Avery Notes Date Note Type Note [...] ................... ................... ................... ................... ................... ................... ........ Customer Operations Manager Note From Bang Neves: Was dispatched for a 88 Y/O female with a possible UTI. UOA PT family reported they noticed she wasn't acting normal since she came home at 3pm today with slurred speech and weakness. PT was found sitting in a chair. PT did appear to be in distress. 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 [facility] was contacted and informed of the PT symptoms and recommended 911 to be contacted, [facility] agreed with findings. 911 was contacted, [facility] arrived on scene and agreed with the findings, and transported PT to [facility] for a possible stroke. [facility] cleared ................... ................... ................... ................... ................... ................... ................... ........ [facility] Consulted: Arun Houston ................... ................... ................... ................... ................... ................... ................... ........ Disposition: Fulfilled Arun Houston MD [address] [facility],[address], [place], [address], PABLO - RevolutJAVIER BHAGAT 08/13/2024 21:41:50 OBGyn Episode No OBEpisode recorded.
== END 2024-09-03 10:21 | disposition home or self-care (01) ==
LOC: HO.SH 10:20
PROVIDERS: Visit Provider Internal Medicine
DX: Z01.118 Encounter for examination of ears and hearing with other abnormal findings (principal); H90.3 Sensorineural hearing loss, bilateral
CPT/HCPCS: 92557

== ENCOUNTER 2024-09-16 09:42 | Outpatient (AMB) | payer OTHER, SELFPAY ==
--- NOTE | 2024-09-16 10:06 | A.OFFVIS_ITS ---
Intake Visit Reasons: ED follow up/ PVR Intake Note: Patient presents today for follow up visit for uti Urology Medications: Estrace Cream Blood Thinner: none PVR: 141ml's Bush Regenerator Required: No Accompanied by: Unknown Allergies lisinopril Allergy (Unknown, Verified 09/16/24 23:03) cough Amlodipine Adverse Reaction (Intermediate, Uncoded 09/16/24 23:03) Leg swelling Medication List - Last Reconciled 09/16/24 by FRAN Falk acetaminophen (Tylenol Extra Strength) 1,000 mg PO Q6H PRN albuterol sulfate 90 mcg/actuation 1 inh inhalation QID PRN aspirin 81 mg PO DAILY [BATH AND SHOWER STEP WITH HANDLE As directed] cholecalciferol (vitamin D3) (Vitamin D3) 50 mcg PO DAILY [Contour plus bladder pads As directed] cyanocobalamin (vitamin B-12) (Vitamin B-12) 1,000 mcg PO MO [Disposable liner/shield/pad As directed] [Disposable liners/shield/[id number] As directed] [EASY RISE WALKER As directed] estradiol 0.01%(0.1mg/gram) 1 g vaginal TUTH [flushable toilet wipes As directed] fluticasone propionate 50 mcg/actuation 1 spray intranasal DAILY PRN [gloves As directed] [gloves As directed] [HOSPITAL BED As directed] hydrocortisone 2.5% (Proctozone-HC) 1 appl [place] DAILY lamotrigine 25 mg PO DAILY PRN losartan 25 mg PO DAILY mirtazapine 7.5 mg PO BEDTIME PRN nystatin 1 appl topical DAILY PRN omeprazole 20 mg PO DAILY@0630 [Pad liners for bed and chair As directed] [PAIN RELIEVING PATCHES WITH HEAT As directed] pravastatin 20 mg PO DAILY [reclining lift chair. As directed] solifenacin 5 mg PO DAILY sulfamethoxazole-trimethoprim 200-40 mg/5 mL 5 mL PO 3XW 30 days [underwear pull ups 3 per day As directed] HPI Comments Details: Nisreen is a very pleasant 88-year-old female patient of Dr. Lebron was accompanied by her daughter and sister at today's office visit. She has a past medical history of osteoarthritis, TIA, seizure disorder, urinary incontinence, GERD, COPD, obesity, hypertension, recurrent UTIs, and vitamin-D deficiency. She presents to the office today for follow-up. Of note, patient was seen approximately 5 months ago as a new patient for recurrent urinary tract infections at which time recommendations were made for Estrace cream as well as methenamine and vitamin-C for suppression. In discussion with the daughter who provides much of today's health history she reports compliance with Estrace cream however did not initiate methenamine and vitamin-C. She reports 3 months ago patient was admitted for TIA, encephalopathy, UTI, sepsis, and C diff. she has since completed antibiotic therapy as prescribed upon discharge. She reports having followed up recently with her PCP in recommendations were made for low- dose Bactrim that she feels has been helpful. She does however discuss feeling patient's seizure medications are causing patient to have unusual behavior and therefore she feels she can not differentiate between potential for urinary tract infection or patient has baseline mental state. Patient's daughter reports typically patient does not present with any typical UTI like symptoms such as urinary urgency, urinary frequency, dysuria, and or foul-smelling urine. She does report compliance with Estrace cream as prescribed. We did discussed at length potential causes of recurrent urinary tract infections as well as further treatment options and risks and benefits of these treatment options unable to obtain urine for urinalysis today PVR 141 mL. We did discuss initiation of low-dose alpha-cuca to assist with bladder emptying. In review of patient's chart positive urine cultures are as follows: 01/10 E coli, 02/11 E coli and Streptococcus viridans group, 09/13 Streptococcus parasanguinis, 10/12 Enterococcus faecalis and Pseudomonas aeruginosa, 04/15 E coli, 12/15 Streptococcus viridans group and Enterobacter Cloacae complex. 08/15 Citrobacter freundii She currently denies any UTI like symptoms. We discussed potential causes for recurrent urinary tract infections as well as further treatment options for recurrent urinary tract infections. She reports a longstanding history of urinary incontinence. She reports utilizing 4-6 adult diapers/pull ups daily. She otherwise denies hematuria, dysuria, foul smelling urine, changes to urinary stream, flank pain, fever, and or chills. In review of patient's chart it appears abdominal ultrasound performed while inpatient these results were reviewed today 08/15 No nephrolithiasis or hydronephrosis demonstrated. Benign renal cortical cyst on the right. Parapelvic cyst with probable debris left kidney. Decompressed urinary bladder with Lima. We discussed potential for near future in office cystoscopy and or urodynamics for further assessment evaluation. She otherwise offers no other issues or concerns at this time. [facility] Medical History Recurrent UTI Altered mental status Acute encephalopathy Bilateral arm pain Osteoarthritis of knees, bilateral TIA (transient ischemic attack) Seizure disorder Knee osteoarthritis Urinary incontinence GERD (gastroesophageal reflux disease) COPD (chronic obstructive pulmonary disease) Obesity (BMI 30-39.9) Hypertension UTI (urinary tract infection) Hypertriglyceridemia Impaired glucose tolerance Vitamin D deficiency Surgical History H/O oophorectomy History of abdominal hysterectomy History of bilateral cataract extraction H/O left wrist surgery Family History Father No problems noted. Mother Past heart attack Sister Diabetes Brother Prostate cancer Social History Household Members: Family and Children Household Members Other:: Daughter, son-in-law Housing: House Do you presently have visiting nurse or other home services: Yes (PT finished last Fri, [facility] after recent hospitalization) Alcohol intake: never Comment: [phone] Patient Tobacco Use Status: Never used Tobacco Tobacco use type: Cigarette e-Cigarette/Vaping Use: Never Used Second Hand Smoke Exposure: No Advance Directives Date on File: 12/23/23 service: No Current occupational status: retired Cognitive needs: Yes (cane, walker) Hearing needs: No Vision needs: Yes (glasses) Review of Systems Const All systems reviewed & are unremarkable except as noted in HPI and below Eyes Reports no additional complaints ENT Reports no additional complaints Card Reports as per HPI Resp Reports as per HPI GI Reports as per HPI Reports as per HPI Musc Reports as per HPI Neuro Reports as per HPI Psych Reports no additional complaints Endo Reports no additional complaints Kevin/Lymph Reports no additional complaints Aller/Immun Reports no additional complaints Physical Exam Const General: cooperative, healthy appearing, comfortable, no acute distress, well developed, alert and awake Nutritional Appearance: overweight Orientation/consciousness: patient oriented x3 HEENT Head: Yes normal to inspection, Yes normocephalic and Yes atraumatic Ears: hearing grossly normal bilaterally Eyes General: appearance normal, both eyes and all related structures Neck Neck: Yes normal visual inspection and Yes trachea midline Chest Chest palpation & inspection: normal inspection of the chest Resp Effort & Inspection: normal respiratory effort and able to speak in complete sentences Cardio Rate: regular rate GI Inspection: Yes normal to inspection General: Yes no CVA tenderness Back/Spine/Pelvis Back: no CVA tenderness Skin General skin exam: no rashes or lesions noted Neuro General: patient oriented x3 Extrem General: Yes normal to inspection Psych Appearance: grossly normal and well kempt Mental Status: mental status grossly normal Speech and movement: Normal speech and movement present and Clear speech present Affect: normal affect Attitude: cooperative Thought process: Normal thought process present Thought content: Normal thought content present Insight: Fair insight present (Psych) Judgement: Fair judgement present (Psych) Office Procedures Post Void Residual Post Residual Void Post Void Residual (PVR): 141 [id number] Void Residual by ultrasound Results Reviewed Results Reviewed: Date of Service: 08/14/24 Procedure(s): US abdomen limited Findings: Right kidney normal size and echotexture, 8.5 cm length. No hydronephrosis calculus or mass. Normal color flow. Dominant renal cortical cyst measuring 2.6 x 2.0 x 2.7 cm midpole appears simple. Left kidney normal size and echotexture, 9.9 cm length. No hydronephrosis or nephrolithiasis. Normal color flow. Parapelvic cysts midpole with probable minimal debris measures 1.4 x 1.1 x 1.0 cm. Impression: 1. No nephrolithiasis or hydronephrosis demonstrated. Benign renal cortical cyst on the right. Parapelvic cyst with probable debris left kidney. Decompressed urinary bladder with Lima. Assessment & Plan Assessment & Plan (1) Urinary incontinence: Code(s): R32 - Unspecified urinary incontinence Category: Medical (2) Recurrent urinary tract infection: Code(s): N39.0 - Urinary tract infection, site not specified Category: Medical Plan Unable to obtain urine for urinalysis PVR 114 mL. We did discussed further treatment options of recurrent urinary tract infections and risks and benefits of these treatment options. We discussed low-dose alpha bladder to assist with bladder emptying. We discussed attempting to double void. We discussed potential near future in office cystoscopy and or urodynamics for further assessment evaluation. Will continue with Estrace cream as prescribed. Continue with the Bactrim prophylactic; although we did discussed methenamine and vitamin-C for suppression. We did discuss potential microgen in the near future if symptoms arise. Follow-up in 3 months with PVR; or sooner with any issues, concerns, and or questions. Orders: Orders UA CC w/rflx Micro + Cult Today N39.0 - Urinary tract infection, site not specified, R32 - Unspecified urinary incontinence, R33.9 - Retention of urine, unspecified Urine Cytology Today N39.0 - Urinary tract infection, site not specified AMB Post Void Residual by ultrasound Today N39.0 - Urinary tract infection, site not specified Patient Instructions: The patient had an opportunity to ask questions regarding the treatment plan. All questions were answered. Physical exam, labs, and imaging were discussed and reviewed in detail. As well as risks, benefits, and discussion of treatment choices. No major barriers to understanding were identified. The patient expressed understanding and agreement with the above treatment plan. The patient was made aware they should contact our office by phone for worsening of their current condition, the appearance of new symptoms, or with any questions or concerns. Compliance is encouraged with any medications and follow up testing that is ordered. It is a privilege to be allowed the opportunity to participate in? your urological care.? Again, if you have any questions or concerns If you have any questions or concerns please do not hesitate to contact me. The office is [phone]. This note is constructed using voice recognition software. While every effort has been made to ensure accuracy typing element machine operator errors may have been included. Yours sincerely, FRAN Falk Coding Level of Care Code Est Pt Level 4 (95124) Complex EM visit Add On G2211 Diagnoses Urinary incontinence R32 Recurrent urinary tract infection N39.0 CPT Codes Post Residual Void - PVR CPT Code: 21032-Dvoo Void Residual by ultrasound ([id number])
--- OUTSIDE RECORDS SUMMARY | 2024-09-16 10:51 | XMS_ITS | Data Portability ---
Author Organization [facility] [place] [employer] [facility] Address [address] [place] [address] Care Team Providers Care Research Biostatistician Name Role Phone HIM CCA OTHER Assessment Encounter Date Assessment Date Assessment [...] SNOMED-CT Code Diagnosis ICD10 Code Diagnosis Note [id number] Arun Houston MD [facility] - [address] [address] 08/13/2024 18:28:50 08/14/2024 14:01:31 Cerebrovascular accident [id number] I63.9 Health Concerns Section Related Observation LastModified by Organization Detai ls LastModified Time None Recorded Concern Status LastModified by Organization Details LastModified Time None Recorded Advance Directives Directive None Recorded Payers Insurance Date Sequence Insurance Name Policy Number Policy Schroeder Covered Member ID Schroeder Member ID Guarantor Name 08/13/2024 1 [facility] - DOS ON OR AFTER 2022 - DUAL ELIGIBLE - SENIOR LIVING OPTIONS AND ONE CARE (MEDICARE REPLACEMENT/AD VANTAGE - HMO) Nisreen Avery [id number] Nisreen Avery Notes Date Note Type Note [...] ................... ................... ................... ................... ................... ................... ........ Photography Sales Associate Note From Bang Neves: Was dispatched for a 88 Y/O female with a possible UTI. UOA PT family reported they noticed she wasn't acting normal since she came home at 3pm today with slurred speech and weakness. PT was found sitting in a chair. PT did appear to be in distress. 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 [facility] was contacted and informed of the PT symptoms and recommended 911 to be contacted, [facility] agreed with findings. 911 was contacted, [facility] arrived on scene and agreed with the findings, and transported PT to [facility] for a possible stroke. [facility] cleared ................... ................... ................... ................... ................... ................... ................... ........ [facility] Consulted: Arun Houston ................... ................... ................... ................... ................... ................... ................... ........ Disposition: Fulfilled Arun Houston MD [address] [facility],[address], [place], [address], PABLO - MILLENNIUM BIOTECHNOLOGIESOLAYINKA, JAVIER 08/13/2024 21:41:50 OBGyn Episode No OBEpisode recorded.
== END 2024-09-16 10:51 | disposition home or self-care (01) ==
PROVIDERS: PCP Internal Medicine; Visit Provider Nurse Practitioner Family
DX: R32 Unspecified urinary incontinence (principal); N39.0 Urinary tract infection, site not specified
CPT/HCPCS: 99214; G2211

== ENCOUNTER → 2024-09-16 09:42 | Outpatient (BNVA) | payer OTHER, SELFPAY | PROVIDERS: PCP Internal Medicine; Visit Provider Nurse Practitioner Family | DX: R32 Unspecified urinary incontinence (principal); N39.0 Urinary tract infection, site not specified | CPT/HCPCS: 51798; 99212 ==

== ENCOUNTER 2024-09-22 09:01 | Outpatient (REF) | payer OTHER, SELFPAY ==
[2024-09-22 09:08] LABS: Appearance Urine Turbid; Glucose Urine UA Negative (Negative); PH >= 9.0 (5.0-9.0); Specific Gravity - Urine 1.015 (1.005-1.025)
--- OUTSIDE RECORDS SUMMARY | 2024-09-22 09:11 | XMS_ITS | Data Portability ---
Author Organization [employer] [facility] [place] [employer] [facility] Address [address] [place] [address] Care Team Providers Care Air Quality Manager Name Role Phone HIM CCA OTHER Assessment [...] SNOMED-CT Code Diagnosis ICD10 Code Diagnosis Note [id number] Arun Houston MD [facility] - [address] [address] 08/13/2024 18:28:50 08/14/2024 14:01:31 Cerebrovascular accident [id number] I63.9 Health Concerns Section Related Observation LastModified by Organization Detai ls LastModified Time None Recorded Concern Status LastModified by Organization Details LastModified Time None Recorded Advance Directives Directive None Recorded Payers Insurance Date Sequence Insurance Name Policy Number Policy Schroeder Covered Member ID Schroeder Member ID Guarantor Name 08/13/2024 1 [facility] - DOS ON OR AFTER 2022 - DUAL ELIGIBLE - PENITENTIARY OPTIONS AND ONE CARE (MEDICARE REPLACEMENT/AD VANTAGE - HMO) Nisreen Avery [id number] Nisreen Avery Notes Date Note Type Note [...] ................... ................... ................... ................... ................... ................... ........ Producer Director Note From Bang Neves: Was dispatched for a 88 Y/O female with a possible UTI. UOA PT family reported they noticed she wasn't acting normal since she came home at 3pm today with slurred speech and weakness. PT was found sitting in a chair. PT did appear to be in distress. A Stroke scale was performed, PT showed weakness in her right sided coat agent, right arm drift, right sided face droppage, and PT had slurred speech. [facility] was contacted and informed of the PT symptoms and recommended 911 to be contacted, [facility] agreed with findings. 911 was contacted, [facility] arrived on scene and agreed with the findings, and transported PT to [facility] for a possible stroke. [facility] cleared ................... ................... ................... ................... ................... ................... ................... ........ [facility] Consulted: Arun Houston ................... ................... ................... ................... ................... ................... ................... ........ Disposition: Fulfilled Arun Houston MD [address] [facility],[address], [place], [address], PABLO - 1DayLaterOLAYINKA, JAVIER 08/13/2024 21:41:50 OBGyn Episode No OBEpisode recorded.
== END 2024-09-22 09:02 | disposition home or self-care (01) ==
LOC: HO.LNP 09:01
PROVIDERS: Nurse Practitioner Family; Visit Provider Internal Medicine
DX: N39.0 Urinary tract infection, site not specified (principal); R33.9 Retention of urine, unspecified; R32 Unspecified urinary incontinence
CPT/HCPCS: 81003

== ENCOUNTER 2024-11-01 11:24 | Outpatient (AMB) | payer OTHER, SELFPAY ==
--- NOTE | 2024-11-01 11:31 | A.OFFVIS_ITS ---
Vital Signs 11/01/24 11:43 Height 5 ft 4 in Weight 192 lb BMI 33.0 Intake Visit Reasons: Inj - Bilateral Knee Cortisone Intake Note: Nisreen is an 89 year old female who presents today for repeat Bilateral Knee Injections. Last injections were administered 11/03/23 with good relief. Allergies lisinopril Allergy (Unknown, Verified 11/01/24 11:42) cough Amlodipine Adverse Reaction (Intermediate, Uncoded 11/01/24 11:42) Leg swelling HPI HPI Inj - Bilateral Knee Cortisone: Details: Nisreen 89-year-old woman who comes in today with right knee pain. She has had injections in the past and they have been helpful. She would like another 1 tod ay. HPI Comments Details: Nisreen is an 89 year old female who presents today for repeat Bilateral Knee Injections. Last injections were administered 11/03/23 with good relief. [facility] Medical History Recurrent UTI Altered mental status Acute encephalopathy Bilateral arm pain Osteoarthritis of knees, bilateral TIA (transient ischemic attack) Seizure disorder Knee osteoarthritis Urinary incontinence GERD (gastroesophageal reflux disease) COPD (chronic obstructive pulmonary disease) Obesity (BMI 30-39.9) Hypertension UTI (urinary tract infection) Hypertriglyceridemia Impaired glucose tolerance Vitamin D deficiency Surgical History H/O oophorectomy History of abdominal hysterectomy History of bilateral cataract extraction H/O left wrist surgery Family History Father No problems noted. Mother Past heart attack Sister Diabetes Brother Prostate cancer Social History Household Members: Family and Children Household Members Other:: Daughter, son-in-law Housing: House Do you presently have visiting nurse or other home services: Yes (PT finished last Fri, [facility] after recent hospitalization) Alcohol intake: never Comment: 262 Patient Tobacco Use Status: Never used Tobacco Tobacco use type: Cigarette e-Cigarette/Vaping Use: Never Used Second Hand Smoke Exposure: No Advance Directives Date on File: 12/23/23 service: No Current occupational status: retired Cognitive needs: Yes (cane, walker) Hearing needs: No Vision needs: Yes (glasses) Physical Exam Vital Signs: BMI result Body Mass Index 33.0 Extrem Other: Medial compartment TTP bilaterally General deconditioning skin c/d/i Office Procedures Joint Inj/Aspir; Non-Pain Clin Joint Injection/Drain Details: Injected 1 mL of Decadron and 3 mL 1% lidocaine and 3 mL of 0.25% Marcaine. Site was prepped using aseptic technique. Patient tolerated the procedure well. Shoulders, Hips, Knees, Knee Large Joint Injection : Right Knee Coding Procedure code (CPT) selection complete Assessment & Plan Assessment & Plan (1) Osteoarthritis of knees, bilateral: Code(s): M17.0 - Bilateral primary osteoarthritis of knee Category: Medical Qualifiers: Osteoarthritis type: primary Qualified Code(s): M17.0 - Bilateral primary osteoarthritis of knee Plan: I injected her right knee today. Not a surgical candidate. She may follow up for repeat injections if she so desires. Coding Level of Care Code Est Pt Level 3 (66335) Diagnoses Primary osteoarthritis of both knees M17.0 Osteoarthritis type: primary CPT Codes Shoulders, Hips, Knees, - Knee Large Joint Injection : Right Knee ([id number])
[2024-11-01 11:43] VITALS: BMI 33.0
--- OUTSIDE RECORDS SUMMARY | 2024-11-01 12:04 | XMS_ITS | Clinical Summary ---
Author Organization [facility] Address [address] [place] [address] Phone Care Team Providers Care Dentist/Owner Name Role Phone Unavailable Primary Care Provider Unavailabl e Social History Tobacco Use Types Packs/Day Years Used Date Smoking Tobacco: Never Assessed Education Answer Date Recorded Are you interested in more education? Not on lenore e 12/25/2023 Are you concerned about learning? Not on file 12/25/2023 No 12/25/2023 No 12/25/2023 Digital Access Answer Date Recorded No 12/25/2023 No 12/25/2023 Reliable internet access at home? Not on file 12/25/2023 Device with a working camera? Not on file Comments Unknown Sex and Gender Information Value Date Recorded Sex Assigned at Not on file Legal Sex Female 11:38 AM EDT Gender Identity Not on file Sexual Orientation Not on file Plan of Treatment Not on file Medical Devices Not on file Insurance [facility] C[facility] ALLIANCE [place] MEDICARE REPLACEMENT [place] [id number] MEDICARE REPLACEMENT MEDICARE REPLACEMENT MEDICARE REPLACEMENT [employer] ALLIANCE SCO MEDICARE REPLACEMENT [facility] MEDICARE REPLACEMENT Additional Source Comments The information contained in this document represents components of the legal health record. It is not the complete legal health record.[facility]
--- OUTSIDE RECORDS SUMMARY | 2024-11-01 12:04 | XMS_ITS | Clinical Summary ---
Author Organization [employer] Address [address] [facility] 7[address] [place] [address] Care Team Providers Care Teacher Preschool Name Role Phone Unavailable Primary Care Provider Unavailabl e Immunizations Immunization Administration Dates Next Due Influenza, seasonal, injectable, [...] Vaccine ( season) 2023 02/25/2021, 05/23/2020, 05/02/2020 Influenza Vaccine (#1) 2024 , 01/06/2023, 12/26/2020, Additional history exists Pneumococcal Vaccine: 50+ Years Completed 12/17/2021, 07/10/2015 HIB Vaccines Aged Out No longer eligi [...] patient's age to complete this topic Meningococcal B Vaccine Aged Out No l onger eligible based on patient's age to complete this topic Meningococcal Vaccine Aged Out No yann kadi eligible based on patient's age to complete this topic RSV under 20 months Aged Out No longe r eligible based on patient's age to complete this topic Rotavirus Vaccines Aged Out No longer eligible based on patient's age to complete this topic Insurance [facility] SENIOR LIVING OPTIONS (HMO D-SNP)
== END 2024-11-01 12:06 | disposition home or self-care (01) ==
LOC: HO.HOS 11:25
PROVIDERS: PCP Internal Medicine; Visit Provider Orthopaedic Surgery
DX: M17.0 Bilateral primary osteoarthritis of knee (principal)
CPT/HCPCS: 20610; 99213

== ENCOUNTER → 2024-11-01 11:24 | Outpatient (BNVA) | payer OTHER, SELFPAY | PROVIDERS: PCP Internal Medicine; Visit Provider Orthopaedic Surgery | DX: M17.0 Bilateral primary osteoarthritis of knee (principal) | CPT/HCPCS: 20610; 99212; J0665; J1100; J2003 ==

== ENCOUNTER 2024-11-08 11:22 | Outpatient (REF) | payer OTHER, SELFPAY ==
[2024-11-08 12:19] LABS: Appearance Urine Hazy; Glucose Urine UA 100 mg/dL (Negative); PH > 9.0 (5.0-9.0); Specific Gravity - Urine 1.025 (1.005-1.025)
[2024-11-08 12:20] LABS: UMIC TRIGGER UACC YES
[2024-11-08 12:24] VITALS: BP 130/61; PULSE 78; RESP 18; O2SAT 96; BMI 30.5
[2024-11-08 12:25] LABS: Other Crystals Urine Present; UACC Culture Trigger YES
--- OUTSIDE RECORDS SUMMARY | 2024-11-08 12:41 | XMS_ITS | Clinical Summary ---
Author Organization [employer] Address [address] [facility] 7[address] [place] [address] Care Team Providers Care Funeral Assistant Name Role Phone Unavailable Primary Care Provider [...] patient's age to complete this topic Insurance [facility] USP OPTIONS (HMO D-SNP)
--- OUTSIDE RECORDS SUMMARY | 2024-11-08 12:41 | XMS_ITS | Clinical Summary ---
Author Organization [facility] Address [address] [place] [address] Phone Care Team Providers Care Babcock Tester Name Role Phone Unavailable Primary Care Provider [...] Insurance [facility] C[facility] ALLIANCE [place]O MEDICARE REPLACEMENT [place] [id number] MEDICARE REPLACEMENT MEDICARE REPLACEMENT MEDICARE REPLACEMENT WEALTH CARE ALLIANCE SCO MEDICARE REPLACEMENT [facility] Additional Source Comments The information contained in this document represents components of the legal health record. It is not the complete legal health record.[facility]
--- OUTSIDE RECORDS SUMMARY | 2024-11-08 12:41 | XMS_ITS | Clinical Summary ---
Author Organization [facility] Address [address] [place] [address] Care Team Providers Care Mine Patrol Name Role Phone Nicola Lebron MD Primary [...] History Relation Name Comments [place] Prostate Brother [place] Mother arthritis Diabetes Sister Relation Name Status [...] 62 05/19/2018 4:00 PM EST Temperature 36.7 C (98 F) 05/19/2018 4:00 PM EST Respiratory Rate 14 [...] PNEUMOCOCCAL VACCINE (2 - PCV) 07/09/2016 07/10/2015 BMI CHECK/ADVISE 03/24/2024 INFLUENZA (#1) 2024 12/27/2016 Care Teams Mine Patrol Relationship Specialty Start Date End Date Nicola Lebron MD PCP - General Internal Medicine 11/22/14
== END 2024-11-08 11:23 | disposition home or self-care (01) ==
LOC: HO.MS 11:22
PROVIDERS: PCP Internal Medicine; Visit Provider Ophthalmology
PROC: (CPT 11642; principal; 2024-11-08 15:00)
DX: D09.8 Carcinoma in situ of other specified sites (principal)
CPT/HCPCS: 11642 ×2; 81001; 81003; 87086; 88305; J2004

== ENCOUNTER 2024-12-01 10:17 | Outpatient (AMB) | payer OTHER, SELFPAY ==
--- NOTE | 2024-12-01 10:30 | A.OFFVIS_ITS ---
Intake Visit Reasons: 3m dementia Allergies lisinopril Allergy (Unknown, Verified 11/01/24 11:42) cough Amlodipine Adverse Reaction (Intermediate, Uncoded 11/01/24 11:42) Leg swelling HPI Comments Details: 89 yo woman with vascular dementia with suspicion of seizure d/o. In May of 2024, she was admitted at [facility] with confusion. Her temp was 102F, MRI brain did not reveal any new lesion, CSF protein was normal with 10 WBCs, and an EEG revealed left temporal sharps. She was treated for encephalitis and with levetiracetam. She started having behavioral side effects and it was stopped. She is presenting for follow-up on neurological and mood stabilization concerns. Important historical factors include a previous Transient Ischemic Attack (TIA), with no reported seizures but noted mood agitation since starting a mood stabilizer medication at 25 mg twice daily. Her hearing impairment continues to affect communication. She recently underwent treatment for skin cancer on her face. Recurrent urinary tract infections have historically led to health c omplications and are closely monitored to avoid further problems. Her memory generally remains sufficient, and she engages socially at a senior center. [facility] Medical History Recurrent UTI Altered mental status Acute encephalopathy Bilateral arm pain Osteoarthritis of knees, bilateral TIA (transient ischemic attack) Seizure disorder Knee osteoarthritis Urinary incontinence GERD (gastroesophageal reflux disease) COPD (chronic obstructive pulmonary disease) Obesity (BMI 30-39.9) Hypertension UTI (urinary tract infection) Hypertriglyceridemia Impaired glucose tolerance Vitamin D deficiency Surgical History H/O oophorectomy History of abdominal hysterectomy History of bilateral cataract extraction H/O left wrist surgery Family History Father No problems noted. Mother Past heart attack Sister Diabetes Brother Prostate cancer Social History Household Members: Family and Children Household Members Other:: Daughter, son-in-law Housing: House Do you presently have visiting nurse or other home services: Yes (PT finished last Fri, VNA after recent hospitalization) Alcohol intake: never Comment: [phone] Patient Tobacco Use Status: Never used Tobacco Tobacco use type: Cigarette e-Cigarette/Vaping Use: Never Used Second Hand Smoke Exposure: No Advance Directives Date on File: 12/23/23 service: No Current occupational status: retired Cognitive needs: Yes (cane, walker) Hearing needs: No Vision needs: Yes (glasses) Review of Systems Const Details: - Neurological: Reports mood agitation; Denies seizures - Auditory: Reports significant hearing impairment - Integumentary: Reports recent excision of skin cancer on the face - Genitourinary: Reports vigilance for UTI symptoms - Cognitive: Reports minor memory lapses; Denies significant cognitive decline Physical Exam Extrem Other: She is alert and awake with normal spontaneity of speech fluency comprehension and affect. She has significant difficulty hearing. She was in a wheelchair. Assessment & Plan Assessment & Plan (1) Seizure disorder: Comment: MRI brain at [facility] in July 2024: No change EEG at [facility] in May 2024: Left temp sharps CSF analysis at [facility] in May 2024: WBCs 10, RBCs 2, Glu 66, Pro 33, encephalitis panel neg MRI brain WO at [facility] in May 2024: Mod MVD MRI brain WO at [facility] in 2019: mod MVD CT brain WO at [facility] in 2014: mod MVD EEG at office in Oct 2019: WNL Code(s): G40.909 - Epilepsy, unspecified, not intractable, without status epilepticus Category: Medical (2) Vascular dementia: Code(s): F01.50 - Vascular dementia, unspecified severity, without behavioral disturbance, psychotic disturbance, mood disturbance, and anxiety Category: Medical Qualifiers: Dementia severity: mild Dementia behavioral or psychological symptom: with other behavioral disturbance Qualified Code(s): F01.A18 - Vascular dementia, mild, with other behavioral disturbance Plan Impression: a: Vascular dementia b: Seizure do c: Hearing impairment Rec: Lamotrigine 25mg bid Hearing aid Aspirin 81mg a day Medications: Changed From lamotrigine 25 mg PO DAILY PRN To lamotrigine 25 mg PO BID 180 tabs 1RF Coding Level of Care Code Tele Est Pt Level 4 (70080) Diagnoses Seizure disorder G40.909 Mild vascular dementia with other behavioral disturbance F01.A18 Dementia severity: mild Dementia behavioral or psychological symptom: with other behavioral disturbance
--- OUTSIDE RECORDS SUMMARY | 2024-12-01 12:30 | XMS_ITS | Clinical Summary ---
Author Organization [facility] Address [address] [place] [phone] Phone Care Team Providers Care Drive Thru Order Taker Name Role Phone Unavailable Primary Care Provider [...] file Medical Devices Not on file Insurance [facility]IANCE [place] MEDICARE REPLACEMENT [place] [id number] MEDICARE REPLACEMENT MEDICARE REPLACEMENT MEDICARE REPLACEMENT WEALTH [employer]ARE ALLIANCE SCO [facility] Additional Source Comments The information contained in this document represents components of the legal health record. It is not the complete legal health record.[facility]
--- OUTSIDE RECORDS SUMMARY | 2024-12-01 12:30 | XMS_ITS | Clinical Summary ---
Author Organization [employer] Address [address] [facility] [address] [place] [address] Care Team Providers Care Refinery Operator Reforming Unit Name Role Phone Unavailable Primary Care Provider [...] Tdap) 03/03/2019 03/02/2019 COVID-19 Vaccine ( season) 2024 02/25/2021, 05/23/2020, 05/02/2020 Influenza Vaccine (#1) 2024 [...] patient's age to complete this topic Insurance [facility] SENIOR LIVING OPTIONS (HMO D-SNP)
== END 2024-12-01 10:47 | disposition home or self-care (01) ==
LOC: HO.HSM 10:17
PROVIDERS: PCP Internal Medicine; Visit Provider Psychiatry & Neurology Neurology
DX: G40.909 Epilepsy, unspecified, not intractable, without status epilepticus (principal); F01.A18 Vascular dementia, mild, with other behavioral disturbance
CPT/HCPCS: 99214

== ENCOUNTER → 2024-12-01 10:17 | Outpatient (BNVA) | payer OTHER, SELFPAY | PROVIDERS: PCP Internal Medicine; Visit Provider Psychiatry & Neurology Neurology | DX: F01.A18 Vascular dementia, mild, with other behavioral disturbance (principal); G40.909 Epilepsy, unspecified, not intractable, without status epilepticus | CPT/HCPCS: 99212 ==

== ENCOUNTER 2024-12-14 08:44 | Outpatient (AMB) | payer OTHER, SELFPAY ==
--- NOTE | 2024-12-14 08:45 | MHC.OFFVIS ---
Intake Visit Reasons: 3m/ PVR Intake Note: Patient is present for 3M/PVR Urology Medication:ESTRADIOL,VITAMIN B12,SOLIFENACIN Antibiotic Allergy:NONE Blood Thinner:ASPIRIN TODAY'S PVR:24ML'S Vacuum Drier Tender Required: No Allergies lisinopril Allergy (Unknown, Verified 12/14/24 10:43) cough Amlodipine Adverse Reaction (Intermediate, Uncoded 12/14/24 10:43) Leg swelling Medication List - Last Reconciled 12/14/24 by FRAN Falk acetaminophen (Tylenol Extra Strength) 1,000 mg PO Q6H PRN albuterol sulfate 90 mcg/actuation 1 inh inhalation QID PRN aspirin 81 mg PO DAILY [BATH AND SHOWER STEP WITH HANDLE As directed] cholecalciferol (vitamin D3) (Vitamin D3) 50 mcg PO DAILY [Contour plus bladder pads As directed] cyanocobalamin (vitamin B-12) (Vitamin B-12) 1,000 mcg PO MO [Disposable liner/shield/pad As directed] [Disposable liners/shield/[id number] As directed] [EASY RISE WALKER As directed] estradiol 0.01%(0.1mg/gram) 1 g vaginal TUTH [flushable toilet wipes As directed] fluticasone propionate 50 mcg/actuation 1 spray intranasal DAILY PRN [gloves As directed] [gloves As directed] [HOSPITAL BED As directed] hydrocortisone 2.5% (Proctozone-HC) 1 appl ME DAILY lamotrigine 25 mg PO BID losartan 25 mg PO DAILY mirtazapine 7.5 mg PO BEDTIME PRN nystatin 1 appl topical DAILY PRN omeprazole 20 mg PO DAILY@0630 [Pad liners for bed and chair As directed] [PAIN RELIEVING PATCHES WITH HEAT As directed] pravastatin 20 mg PO DAILY [reclining lift chair. As directed] solifenacin 5 mg PO DAILY sulfamethoxazole-trimethoprim 200-40 mg/5 mL 5 mL PO 3XW 30 days [underwear pull ups 3 per day As directed] HPI Comments Details: Nisreen is a very pleasant 89-year-old female patient of Dr. Lebron was accompanied by her daughter and sister at today's office visit. She has a past medical history of osteoarthritis, TIA, seizre disorder, urinary incontinence, GERD, COPD, obesity, hypertension, recurrent UTIs, and vitamin-D deficiency. She presents to the office today for follow-up. In discussion with the patient and her daughter today she reports she has not had any urinary tract infections since her last office visit here approximately 3 months ago. She does however report ongoing issues with urinary and fecal incontinence. We did discussed further treatment options to include trial of InterStim as well as importance of timed/scheduled voiding given decreased mobility. We also discussed further treatment options of recurrent urinary tract infections to include trial of methenamine and vitamin-C. Unable to obtain urine for urinalysis today as patient unable to void. PVR 24 mL. She continues with compliance and Estrace cream 2-3 times per week. She continues with low-dose Bactrim 3 times per week for preventative of recurrent urinary tract infections however patient's daughter feels this is causing patient diarrhea. She discusses how helpful low-dose Bactrim 3 times per week has been as she feels she has not had any UTI like symptoms and or urinary tract infections since initiation. Patient's daughter reports typically patient does not present with any typical UTI like symptoms such as urinary urgency, urinary frequency, dysuria, and or foul-smelling urine. She does report compliance with Estrace cream as prescribed. We did discussed at length potential causes of recurrent urinary tract infections as well as further treatment options and risks and benefits of these treatment options unable to obtain urine for urinalysis today PVR 24 mL. In review of patient's chart positive urine cultures are as follows: 01/10 E coli, 02/11 E coli and Streptococcus viridans group, 09/13 Streptococcus parasanguinis, 10/12 Enterococcus faecalis and Pseudomonas aeruginosa, 04/15 E coli, 12/15 Streptococcus viridans group and Enterobacter Cloacae complex. 08/15 Citrobacter freundii She currently denies any UTI like symptoms. We discussed potential causes for recurrent urinary tract infections as well as further treatment options for recurrent urinary tract infections. She reports a longstanding history of urinary incontinence. She reports utilizing 6-9 adult diapers/pull ups daily. She otherwise denies hematuria, dysuria, foul smelling urine, changes to urinary stream, flank pain, fever, and or chills. In review of patient's chart it appears abdominal ultrasound performed while inpatient these results were reviewed today 08/15 No nephrolithiasis or hydronephrosis demonstrated. Benign renal cortical cyst on the right. Parapelvic cyst with probable debris left kidney. Decompressed urinary bladder with [place]. We discussed potential for near future in office cystoscopy and or urodynamics for further assessment evaluation. She otherwise offers no other issues or concerns at this time. [facility] Medical History Recurrent UTI Altered mental status Acute encephalopathy Bilateral arm pain Osteoarthritis of knees, bilateral TIA (transient ischemic attack) Seizure disorder Knee osteoarthritis Urinary incontinence GERD (gastroesophageal reflux disease) COPD (chronic obstructive pulmonary disease) Obesity (BMI 30-39.9) Hypertension UTI (urinary tract infection) Hypertriglyceridemia Impaired glucose tolerance Vitamin D deficiency Surgical History H/O oophorectomy History of abdominal hysterectomy History of bilateral cataract extraction H/O left wrist surgery Family History Father No problems noted. Mother Past heart attack Sister Diabetes Brother Prostate cancer Social History Household Members: Family and Children Household Members Other:: Daughter, son-in-law Housing: House Do you presently have visiting nurse or other home services: Yes (PT finished last Fri, VNA after recent hospitalization) Alcohol intake: never Comment: 262 Patient Tobacco Use Status: Never used Tobacco Tobacco use type: Cigarette e-Cigarette/Vaping Use: Never Used Second Hand Smoke Exposure: No Advance Directives Date on File: 12/23/23 service: No Current occupational status: retired Cognitive needs: Yes (cane, walker) Hearing needs: No Vision needs: Yes (glasses) Review of Systems Const All systems reviewed & are unremarkable except as noted in HPI and below Eyes Reports no additional complaints ENT Reports no additional complaints Card Reports as per HPI Resp Reports as per HPI GI Reports as per HPI Reports as per HPI Musc Reports as per HPI Neuro Reports as per HPI Psych Reports no additional complaints Endo Reports no additional complaints Kevin/Lymph Reports no additional complaints Aller/Immun Reports no additional complaints Physical Exam Const General: cooperative, healthy appearing, comfortable, no acute distress, well developed, alert and awake Nutritional Appearance: overweight Orientation/consciousness: patient oriented x3 HEENT Head: Yes normal to inspection, Yes normocephalic and Yes atraumatic Ears: hearing grossly normal bilaterally Eyes General: appearance normal, both eyes and all related structures Neck Neck: Yes normal visual inspection and Yes trachea midline Chest Chest palpation & inspection: normal inspection of the chest Resp Effort & Inspection: normal respiratory effort and able to speak in complete sentences Cardio Rate: regular rate GI Inspection: Yes normal to inspection General: Yes no CVA tenderness Back/Spine/Pelvis Back: no CVA tenderness Skin General skin exam: no rashes or lesions noted Neuro General: patient oriented x3 Extrem General: Yes normal to inspection Psych Appearance: grossly normal and well kempt Mental Status: mental status grossly normal Speech and movement: Normal speech and movement present and Clear speech present Affect: normal affect Attitude: cooperative Thought process: Normal thought process present Thought content: Normal thought content present Insight: Fair insight present (Psych) Judgement: Fair judgement present (Psych) Office Procedures Post Void Residual Post Residual Void Post Void Residual (PVR): 24 [id number] Void Residual by ultrasound Assessment & Plan Assessment & Plan (1) Urinary incontinence: Code(s): R32 - Unspecified urinary incontinence Category: Medical (2) Recurrent urinary tract infection: Code(s): N39.0 - Urinary tract infection, site not specified Category: Medical Plan Unable to obtain urine for urinalysis today as patient unable to void PVR 24 mL. She currently denies any UTI like symptoms. We did discussed at length further treatment options of recurrent urinary tract infections in risks and benefits of these treatment options. Continue Estrace cream Continue prophylactic Bactrim We also discussed further treatment options of incontinence both urinary and fecal; information provided. Will send scripts for incontinent pads as discussed. All questions were answered. Follow-up in 3-6 months with PVR; or sooner with any issues, concerns, and or questions. Orders: Orders AMB Urinalysis Automated Today Z13.9 - Encounter for screening, unspecified Medications: New disposable gloves (Nitrile Exam Gloves) As directed, 6 boxes per month Item number: [id number] 6 ea 6RF underpads As directed, 3 packs per month Item number: [id number] 3 ea 6RF [ProCare Adult Washcloth, 12 x 8 , soft pack] As directed 7 packs of 50 per month Item number: [id number] 7 ea 6RF incontinence pad, liner, disp (Prevail Panty Liner pads) As directed Small 6 x 12.5 Item number: [id number] 6 packs of 52 per month 6 ea 6RF diaper,brief,adult,disposable (Prevail Protective Underwear) As directed size 2X-Large 68 -80 Item number: [id number] 11 packs of 12 each per month 11 ea 6RF foam bandage As directed up to 6 monthly 5 ea 6RF Patient Instructions: The patient had an opportunity to ask questions regarding the treatment plan. All questions were answered. Physical exam, labs, and imaging were discussed and reviewed in detail. As well as risks, benefits, and discussion of treatment choices. No major barriers to understanding were identified. The patient expressed understanding and agreement with the above treatment plan. The patient was made aware they should contact our office by phone for worsening of their current condition, the appearance of new symptoms, or with any questions or concerns. Compliance is encouraged with any medications and follow up testing that is ordered. It is a privilege to be allowed the opportunity to participate in? your urological care.? Again, if you have any questions or concerns If you have any questions or concerns please do not hesitate to contact me. The office is [phone]. This note is constructed using voice recognition software. While every effort has been made to ensure accuracy acid concentrator errors may have been included. Yours sincerely, FRAN Falk Coding Level of Care Code Est Pt Level 4 (44387) Complex EM visit Add On G2211 Diagnoses Urinary incontinence R32 Recurrent urinary tract infection N39.0 CPT Codes Post Residual Void - PVR CPT Code: 90888-Zjsp Void Residual by ultrasound ([id number])
--- OUTSIDE RECORDS SUMMARY | 2024-12-14 09:45 | XMS_ITS | Clinical Summary ---
Author Organization [facility] Address [address] [place] [phone] Phone Care Team Providers Care Recovery Operator Helper Name Role Phone Unavailable Primary Care Provider [...] Medical Devices Not on file Insurance [facility] [place] MEDICARE REPLACEMENT [place] [id number] MEDICARE REPLACEMENT MEDICARE REPLACEMENT MEDICARE REPLACEMENT [facility] [employer] SCO MEDIC[facility] Additional Source Comments The information contained in this document represents components of the legal health record. It is not the complete legal health record.[facility]
== END 2024-12-14 09:54 | disposition home or self-care (01) ==
LOC: HO.HUSH 08:44
PROVIDERS: PCP Internal Medicine; Visit Provider Nurse Practitioner Family
DX: R32 Unspecified urinary incontinence (principal); N39.0 Urinary tract infection, site not specified
CPT/HCPCS: 99214; G2211

== ENCOUNTER → 2024-12-14 08:44 | Outpatient (BNVA) | payer OTHER, SELFPAY | PROVIDERS: PCP Internal Medicine; Visit Provider Nurse Practitioner Family | DX: N39.0 Urinary tract infection, site not specified (principal); R32 Unspecified urinary incontinence | CPT/HCPCS: 51798; 99212 ==

== ENCOUNTER 2024-12-20 11:24 | Outpatient (REF) | payer OTHER, SELFPAY ==
--- NOTE | ~2024-12-20 | XR_ITS ---
EXAMINATION: XR SHOULDER, DARRIN 2V CLINICAL INFORMATION: M25.519 - Pain in unspecified shoulder COMPARISON: Left shoulder 10/23/2016. TECHNIQUE: Two views of each shoulder. FINDINGS: RIGHT SHOULDER: No fracture, dislocation, or suspicious bone lesion. Normal alignment. The glenohumeral joint demonstrates severe, end-stage arthrosis with abundant marginal osteophytic spurring and joint space loss. The AC joint demonstrates mild osteoarthrosis. There is a neutral lateral acromion. No undersurface spurring. The subacromial space is preserved. Remainder of the soft tissue and bony structures appear normal. LEFT SHOULDER: No fracture, dislocation, or suspicious bone lesion. Normal alignment. The glenohumeral joint demonstrates severe arthrosis with abundant marginal osteophytic spurring and joint space loss. The AC joint demonstrates mild osteoarthrosis. There is a neutral lateral acromion. No undersurface spurring. The subacromial space is preserved. Remainder of the soft tissue and bony structures appear normal. XR/XR Shoulder Darrin min 2V IMPRESSION: 1. 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 2. Mild degenerative arthrosis of the AC joints bilaterally. Electronically signed by: Juan C Rodríguez MD 12/20/2024 03:05 PM EDT
--- OUTSIDE RECORDS SUMMARY | 2024-12-21 12:53 | XMS_ITS | Clinical Summary ---
Author Organization [employer] Address [address] [facility] [address] [place] [address] Care Team Providers Care In Store Marketer Name Role Phone Unavailable Primary Care Provider Unavailabl e Encounters Date Type Department Care Team Description 12/14/2024 3:55 PM EDT Immunization [facility] [address] [place] [address] from Last 3 Months Immunizations Immunization Administration Dates Next Due Influenza, [...] to complete this topic Insurance [facility] INTERMEDIATE OPTIONS (O D-SNP) [place] [id number]
--- OUTSIDE RECORDS SUMMARY | 2024-12-21 12:53 | XMS_ITS | Clinical Summary ---
Author Organization [facility] Address [address] [place] [phone] Phone Care Team Providers Care Control System Manager Name Role Phone Unavailable Primary Care [...] file Medical Devices Not on file Insurance [facility] CARE ALLIANCE [employer] MEDICARE REPLACEMENT [place] [id number] MEDICARE REPLACEMENT MEDICARE REPLACEMENT MEDICARE REPLACEMENT WE[employer] ALLIANCE [facility] Additional Source Comments The information contained in this document represents components of the legal health record. It is not the complete legal health record.[facility]
== END 2024-12-20 11:25 | disposition home or self-care (01) ==
LOC: HO.HOSX 11:24
PROVIDERS: Visit Provider Physician Assistant
DX: M19.012 Primary osteoarthritis, left shoulder (principal); M19.011 Primary osteoarthritis, right shoulder; E78.1 Pure hyperglyceridemia; E66.9 Obesity, unspecified; K21.9 Gastro-esophageal reflux disease without esophagitis; N39.0 Urinary tract infection, site not specified; C44.320 Squamous cell carcinoma of skin of unspecified parts of face; M17.0 Bilateral primary osteoarthritis of knee; I63.9 Cerebral infarction, unspecified; J43.9 Emphysema, unspecified; Z68.33 Body mass index [BMI] 33.0-33.9, adult
CPT/HCPCS: 20610; 73030; 81003; 99212; J0665; J1100; J2003

== ENCOUNTER 2024-12-20 12:57 | Outpatient (AMB) | payer OTHER, SELFPAY ==
[2024-12-20 13:01] VITALS: BP 128/68; PULSE 75; O2SAT 97; BMI 33.8
--- NOTE | 2024-12-20 13:01 | A.OFFPC_ITS ---
Vital Signs 12/20/24 13:01 Height 5 ft 4 in Weight 197 lb BMI 33.8 BP 128/68 Blood Pressure Location Lt brachial Position Sitting Pulse 75 Pulse Source Pulse Oximeter Pulse Oximetry (%) 97 Oxygen Delivery Method Room Air Intake Visit Reasons: hx of cva, seizure disorder Allergies lisinopril Allergy (Unknown, Verified 12/20/24 14:57) cough Amlodipine Adverse Reaction (Intermediate, Uncoded 12/20/24 14:57) Leg swelling Tobacco use date assessed: 08/30/24 Fall risk assessment: No Falls in past year Last assessed Fall Risk: 12/20/24 Dental Screening Dental Screen Date: 08/30/24 HPI hx of cva, seizure disorder HPI Details L nasal surgery under Dr. Lacey for the cancer skin . [facility] Medical History Recurrent UTI Altered mental status Acute encephalopathy Bilateral arm pain Osteoarthritis of knees, bilateral TIA (transient ischemic attack) Seizure disorder Knee osteoarthritis Urinary incontinence GERD (gastroesophageal reflux disease) COPD (chronic obstructive pulmonary disease) Obesity (BMI 30-39.9) Hypertension UTI (urinary tract infection) Hypertriglyceridemia Impaired glucose tolerance Vitamin D deficiency Surgical History H/O oophorectomy History of abdominal hysterectomy History of bilateral cataract extraction H/O left wrist surgery Family History Father No problems noted. Mother Past heart attack Sister Diabetes Brother Prostate cancer Social History (Updated 12/20/24 @ 14:58 by Cande Carreno Olegario) Household Members: Family and Children Household Members Other:: Daughter, son-in-law Housing: House Do you presently have visiting nurse or other home services: Yes (PT finished last Fri, [facility]NA after recent hospitalization) Alcohol intake: never Comment: [phone] Patient Tobacco Use Status: Never used Tobacco Tobacco use type: Cigarette e-Cigarette/Vaping Use: Never Used Second Hand Smoke Exposure: No Advance Directives Date on File: 12/23/23 service: No Current occupational status: retired Current occupation: right hand dominant Cognitive needs: Yes (cane, walker) Hearing needs: No Vision needs: Yes (glasses) Questionnaire Thrive Questionnaire Date Thrive assessed: 08/14/24 RUBINA-7 AMB Questionnaire RUBINA-7 Date RUBINA - 7 assessed: 05/04/24 Source: Developed by Drs. Gabriel Jiménez, Krupa Paez, Jesus Quintana and colleagues, with an educational akila from [employer]. Physical exam (Primary Care) Vital Signs: Last Vital Signs Pulse 75 12/20/24 13:01 BP 128/68 12/20/24 13:01 Pulse Ox 97 12/20/24 13:01 Oxygen Delivery Method Room Air 12/20/24 13:01 BMI result Body Mass Index 33.8 Tobacco/Smoking Status: Tobacco use Status Tobacco use date assessed 08/30/24 12/20/24 13:02 Patient Tobacco Use Status Never used Tobacco 12/20/24 13:02 Tobacco use type Cigarette 12/20/24 13:02 e-Cigarette/Vaping Use Never Used 12/20/24 13:02 Thrive Assessment: Date of Thrive Assessment Date Thrive assessed 08/14/24 12/20/24 13:02 Const General: alert; No acute distress Eyes Conjunctivae: conjunctivae normal Resp Auscultation: clear to auscultation bilaterally Cardio Rate: regular rate Rhythm: regular rhythm GI Inspection: Yes normal to inspection Extrem General: Yes normal to inspection and No edema Results AMB Urinalysis, Automated UA Leukoctes 70 Rosemarie/uL Last Edit by Emily Woodruff CMA on 12/20/24 13:3 9 UA Nitrite Negative Last Edit by Emily Woodruff CMA on 12/20/24 13:39 UA Urobilinogen 0.2 mg/dL Last Edit by Emily Woodruff CMA on 12/20/24 13:39 UA Protein 100 mg/dL Last Edit by Emily Woodruff CMA on 12/20/24 13:39 UA pH 9.0 Last Edit by Emily Woodruff CMA on 12/20/24 13:39 UA Blood 200 Reyes/uL Last Edit by Emily Woodruff CMA on 12/20/24 13:39 UA Specific [place] 1.000 Last Edit by Emily Woodruff CMA on 12/20/24 13:39 UA Ketone Negative Last Edit by Emily Woodruff CMA on 12/20/24 13:39 UA Bilirubin 0 mg/dL Last Edit by Emily Woodruff CMA on 12/20/24 13:39 UA Glucose 0 mg/dL Last Edit by Emily Woodruff CMA on 12/20/24 13:39 Results Reviewed Results Reviewed: Laboratory Last Values Urine pH (Auto) 9.0 12/20/24 13:38 Specific [place] (Auto) 1.000 12/20/24 13:38 Urine Protein (Auto) 100 mg/dL 12/20/24 13:38 Glucose (UA)(Auto) 0 mg/dL 12/20/24 13:38 Urine Ketones (Auto) Negative 12/20/24 13:38 Urine Blood (Auto) 200 Reyes/uL 12/20/24 13:38 Urine Nitrite (Auto) Negative 12/20/24 13:38 Urine Bilirubin (Auto) 0 mg/dL 12/20/24 13:38 Urine Urobilinogen (Auto) 0.2 mg/dL 12/20/24 13:38 Leukocyte Esterase (Auto) 70 Rosemarie/uL 12/20/24 13:38 Coding Level of Care Code Est Pt Level 4 (21380) Complex EM visit Add On G2211 Diagnoses Hypertriglyceridemia E78.1 Obesity (BMI 30-39.9) E66.9 Gastroesophageal reflux disease without esophagitis K21.9 Esophagitis presence: without esophagitis Recurrent urinary tract infection N39.0 Squamous cell skin cancer, face C44.320 Primary osteoarthritis of both knees M17.0 Osteoarthritis type: primary Acute CVA (cerebrovascular accident) I63.9 Pulmonary emphysema, unspecified emphysema type J43.9 COPD type: emphysema Emphysema type: unspecified Assessment & Plan Assessment & Plan (1) Hypertriglyceridemia: Code(s): E78.1 - Pure hyperglyceridemia Category: Medical Plan: Avoid fried foods, chicken skin, eggs, butter margarine, pastries and meat. Be it pork or beef they have a lot of cholesterol LDL goal of less than 130 and triglyceride of less than 150 (2) Obesity (BMI 30-39.9): Code(s): E66.9 - Obesity, unspecified Category: Medical Plan: Diet and exercise (3) GERD (gastroesophageal reflux disease): Code(s): K21.9 - Gastro-esophageal reflux disease without esophagitis Category: Medical Qualifiers: Esophagitis presence: without esophagitis Qualified Code(s): K21.9 - Gastro-esophageal reflux disease without esophagitis Plan: Avoid the foods that causes that usually spicy foods, tomato products, juices, coffee, soda and foods that your sensitive to. After eating do not lie down, allow 3-4 hours before in lie down. And keep the head of bed above 30 degrees to avoid the acid from going up. (4) Recurrent urinary tract infection: Code(s): N39.0 - Urinary tract infection, site not specified Category: Medical Plan: Patient has followed up with urology and has been placed on antibiotics prophylaxis as well as Estrace cream (5) Squamous cell skin cancer, face: Code(s): C44.320 - Squamous cell carcinoma of skin of unspecified parts of face Category: Medical Plan: Patient is being followed up by Dermatology (6) Osteoarthritis of knees, bilateral: Code(s): M17.0 - Bilateral primary osteoarthritis of knee Category: Medical Qualifiers: Osteoarthritis type: primary Qualified Code(s): M17.0 - Bilateral primary osteoarthritis of knee Plan: Patient has seen Orthopedics and has had injection of the left knee (7) Acute CVA (cerebrovascular accident): Code(s): I63.9 - Cerebral infarction, unspecified Category: Medical Plan: Aspirin 81 mg once a day (8) COPD (chronic obstructive pulmonary disease): Code(s): J44.9 - Chronic obstructive pulmonary disease, unspecified Category: Medical Qualifiers: COPD type: emphysema Emphysema type: unspecified Qualified Code(s): J43.9 - Emphysema, unspecified Plan: On albuterol inhaler as needed Plan History of Present Illness The patient is an 89-year-old female presenting for a follow-up visit. The patient has a history of obesity and impaired glucose tolerance, managed with lifestyle modifications including diet and exercise. She also has hypercholesterolemia with a target LDL goal of less than 130 mg/dL and triglycerides less than 150 mg/dL. The patient has Chronic Obstructive Pulmonary Disease (COPD) and uses an albuterol inhaler as needed. She also has Gastroesophageal Reflux Disease (GERD) and has been advised on dietary modifications to manage symptoms. The patient has a seizure disorder and is currently on lamotrigine, with follow- up care from neurology. She has not experienced any recent seizures. The patient has generalized anxiety disorder and cognitive impairment, which are being monitored. The patient has knee osteoarthritis and has received knee injections for pain management. The patient has a history of nephrolithiasis and cerebrovascular accident (CVA), with ongoing follow-up with urology. The patient has a history of skin cancer on the face and is under dermatological care. Preventative care includes regular follow-ups with dermatology, urology, and neurology. Health Maintenance - Follow-up with dermatology for skin cancer management - Follow-up with urology for nephrolithiasis and urinary tract infection management - Follow-up with neurology for seizure disorder management - Dietary modifications for hypercholesterolemia and GERD - Exercise for obesity and impaired glucose tolerance - Vaccination: Recent flu shot administered Social History - Exercise: Engages in exercise, though not consistently Review of Systems - General: Reports fatigue following flu vaccination - Musculoskeletal: Reports knee pain, managed with injections - Neurological: Denies recent seizures - Respiratory: Uses albuterol inhaler as needed for COPD - Gastrointestinal: Reports symptoms of GERD - Genitourinary: Reports difficulty obtaining urine samples, history of urinary tract infections Physical Exam Results - Labs: Normal blood count, normal electrolytes, renal function normal, low phosphorus at 2.6 mg/dL, elevated liver function tests - Imaging: Negative leg ultrasound Plan Patient was informed and verbally consented to the use of an ambient scribe for clinic note documentation during this visit. 1. Obesity The patient is advised to continue with lifestyle modifications including diet and exercise to manage obesity. 2. Impaired Glucose Tolerance The patient is advised to maintain dietary modifications and regular exercise to manage impaired glucose tolerance. 3. Hypercholesterolemia The patient is advised to continue dietary modifications with a target LDL goal of less than 130 mg/dL and triglycerides less than 150 mg/dL. 4. Chronic Obstructive Pulmonary Disease (Copd) The patient is advised to use the albuterol inhaler as needed for COPD management. 5. Gastroesophageal Reflux Disease (Gerd) The patient is advised to follow dietary modifications to manage GERD symptoms. 6. Seizure Disorder The patient is advised to continue lamotrigine and follow up with neurology for seizure disorder management. 7. Generalized Anxiety Disorder The patient is advised to continue monitoring for generalized anxiety disorder. 8. Cognitive Impairment The patient is advised to continue monitoring cognitive impairment. 9. Knee Osteoarthritis The patient is advised to continue with knee injections for osteoarthritis management. 10. Nephrolithiasis The patient is advised to follow up with urology for nephrolithiasis management. 11. History Of Cerebrovascular Accident (Cva) The patient is advised to continue monitoring for any neurological symptoms related to the history of CVA. 12. Skin Cancer The patient is advised to continue follow-up with dermatology for skin cancer management. Discussion Notes During the visit, we discussed the management of the patient's multiple chronic conditions, including obesity, impaired glucose tolerance, hypercholesterolemia, COPD, GERD, and seizure disorder. We emphasized the importance of lifestyle modifications, including diet and exercise, and the use of medications such as lamotrigine and albuterol inhaler. We also reviewed the patient's follow-up care with dermatology, urology, and neurology, and discussed the recent flu vaccin ation. Patient Instructions - Continue with diet and exercise to manage weight and glucose levels. - Use albuterol inhaler as needed for COPD symptoms. - Follow dietary recommendations to manage GERD and cholesterol levels. - Continue taking lamotrigine as prescribed and follow up with neurology. - Attend follow-up appointments with dermatology, urology, and neurology. - Monitor for any new or worsening symptoms and report them promptly. Orders: Orders AMB Urinalysis Automated Today Z13.9 - Encounter for screening, unspecified Medications: Refilled sulfamethoxazole-trimethoprim 200-40 mg/5 mL 5 mL PO 3XW 65 mL 1RF 30 days N39.0 - Urinary tract infection, site not specified sulfamethoxazole-trimethoprim 800-160 mg (Bactrim DS) 1 tab PO BID 14 tabs 0RF
--- OUTSIDE RECORDS SUMMARY | 2024-12-20 14:09 | XMS_ITS | Clinical Summary ---
Author Organization [facility] Address [address] [place] [phone] Phone Care Team Providers Care Branch Service Representative Name Role Phone Unavailable Primary Care Provider [...] Medical Devices Not on file Insurance [facility] CARE ALLIANCE [employer] MEDICARE REPLACEMENT [place] [id number] MEDICARE REPLACEMENT MEDICARE REPLACEMENT MEDICARE REPLACEMENT [employer]IANCE [facility] MEDIC[facility] Additional Source Comments The information contained in this document represents components of the legal health record. It is not the complete legal health record.[facility]
== END 2024-12-20 14:08 | disposition home or self-care (01) ==
LOC: HO.HMCH 12:58
PROVIDERS: PCP Internal Medicine; Visit Provider Internal Medicine
DX: I63.9 Cerebral infarction, unspecified (principal); J43.9 Emphysema, unspecified; E66.9 Obesity, unspecified; Z68.33 Body mass index [BMI] 33.0-33.9, adult; E78.1 Pure hyperglyceridemia; K21.9 Gastro-esophageal reflux disease without esophagitis; N39.0 Urinary tract infection, site not specified; C44.320 Squamous cell carcinoma of skin of unspecified parts of face; M17.0 Bilateral primary osteoarthritis of knee

== ENCOUNTER → 2024-12-20 14:33 | Outpatient (BNV) | payer OTHER, SELFPAY | PROVIDERS: Visit Provider Radiology Diagnostic Radiology | DX: M19.011 Primary osteoarthritis, right shoulder (principal); M19.012 Primary osteoarthritis, left shoulder | CPT/HCPCS: 73030 ==

== ENCOUNTER 2024-12-28 15:22 | Emergency (ER) | payer OTHER, SELFPAY ==
[2024-12-28] VITALS (38 sets, daily range): BP systolic 94–176; BP diastolic 46–93; PULSE 24–136; RESP 13–130; TEMP 34.2–37.6; O2SAT 64–100; BMI 30.3
--- NOTE | 2024-12-28 | ECG_ITS ---
Test Reason : TACHY Blood Pressure : */* mmHG Vent. Rate : 116 BPM Atrial Rate : 117 BPM P-R Int : 168 ms QRS Dur : 142 ms QT Int : 328 ms P-R-T Axes : 73 41 3 degrees QTcB Int : 455 ms Sinus tachycardia with Premature atrial complexes Premature ventricular complexes Right bundle branch block Possible Inferior infarct (cited on or before 24-Jun-2014) Abnormal ECG When compared with ECG of 13-Aug-2024 19:46, Premature ventricular complexes are now Present Referred By: Roma Stern Electronically Signed By: ARABELLA ESTRADA MD
--- NOTE | ~2024-12-28 | CT_ITS ---
CLINICAL HISTORY: cva CT angiography head and neck with contrast. 3D Postprocessing. Comparison: CT/SR - CT ANGIO HEAD NECK STROKE - 08/13/24 19:15 EDT Findings: Aortic arch and cervical great vessels are patent with no aneurysm, dissection, hemodynamically significant stenoses, or occlusion. The evaluation of the proximal common carotid artery and vertebral artery is limited by imaging artifact. Atherosclerosis calcification of the carotid bulb and cavernous segment of the internal carotid artery. Intracranial arteries are patent. No aneurysm, dissection, hemodynamically significant stenoses, or occlusion. No abnormal intracranial enhancement. The visualized thyroid gland is unremarkable. No cervical mass or fluid collection. Status post intubation. Lung apices clear. No acute fracture. IMPRESSION: No stenoses of the carotid artery and vertebral artery. No large intracranial artery occlusion. Status post intubation. The tip of the endotracheal tube is at the level of antonio. Further evaluation by chest x-ray is recommended. This document has been electronically signed by: Panda Ivy MD on 12/28/2024 19:26:46
--- NOTE | ~2024-12-28 | CT_ITS ---
CLINICAL HISTORY: hypotension CT head without contrast Comparison: CT/SR - CT ANGIO HEAD NECK STROKE - 12/28/24 17:[address]/SR - CT HEAD FOR STROKE - 12/28/24 17:20 EDT Findings: Study performed at [address] is unchanged in appearance compared to the patient's study from 5 hours earlier. There is age-appropriate atrophy. The size and shape of the ventricular system is within normal limits for this degree of atrophy. Moderate areas of low attenuation are identified within the periventricular and deep white matter. Unchanged areas of low-attenuation within the subcortical white matter of the left hemisphere along the anterior aspect of the left parietal/occipital junction. Please note that this is not seen on a CT of the head from August 13, 2024. No midline shift or mass effect. No intracranial hemorrhage. No calvarial lesions. Endotracheal tube is in place. IMPRESSION: Head CT is unchanged compared to the patient's study from 5 hours earlier. However, there is low attenuation within the subcortical white matter along the left parieto-occipital junction which was not present on the patient's head CT from August 13, 2024. Consider brain MRI for further evaluation. This document has been electronically signed by: Enrrique Bergeron MD on 12/28/2024 23:30:51
--- NOTE | ~2024-12-28 | XR_ITS ---
EXAMINATION: XR CHEST CLINICAL INFORMATION: sob COMPARISON: Previous chest x-ray most recent July 2024 TECHNIQUE: Frontal view of the chest was obtained. FINDINGS: Endotracheal tube with tip 1.3 cm above the antonio. Low lung volumes. Central vascular prominence. No pulmonary edema or pneumonia. Cardiac and mediastinal contours are stable. No pleural effusion or pneumothorax. Degenerative changes of the spine and shoulders. Distended bowel below the diaphragm. XR/XR chest 1V IMPRESSION: Low position of endotracheal tube with tip 1.3 cm above the antonio. Provider notified by [place] [employer] at 4:19 PM on 12/28/2024. Electronically signed by: Yuliana Goodwin MD 12/28/2024 04:20 PM EDT
--- NOTE | ~2024-12-28 | CT_ITS ---
CLINICAL HISTORY: bleed post TNK CT chest with contrast Comparison: CR/SR - XR CHEST 1 VIEW - 12/28/24 16:04 EDT Findings: Patient has been intubated. Endotracheal tube is low in position at the level of the antonio pointing towards the right mainstem bronchus. Retraction is suggested. Ulcerative plaquing of the thoracic aorta without dissection or aneurysmal dilatation. Dense coronary artery calcification seen, especially involving the left anterior descending artery. Mild hong chamber cardiac dilation. Dependent consolidation of the lower lobes in the juxtapleural location is likely related to atelectasis. Additional areas of hazy density in the lungs suggest atelectasis. Biapical pleural/parenchymal scarring is evident. No pathologically enlarged mediastinal, hilar, or axillary lymph nodes. No pleural effusion or pneumothorax. Nonspecific strandy density seen within the subcutaneous fat over the anterior aspect of the upper chest superficial to the left clavicle and sternum. No discrete fluid collection is identified. Severe degenerative change of both shoulder joints with numerous intra-articular loose bodies and complete loss of the joint space. No fracture of the visualized portion of the left clavicle. No sternal fractures are seen. Bones are osteopenic. Multilevel bridging osteophytes are seen throughout the thoracic spine. No rib fractures identified. Please refer to the patient's separately dictated CT of the abdomen and pelvis for information regarding findings in the upper abdomen. IMPRESSION: 1. Endotracheal tube low in position. 2. Multifocal vasculopathy. 3. Scattered areas of likely atelectasis within the lungs. No pneumothorax or pleural effusion. 4. Nonspecific edema within the subcutaneous fat of the anterior aspect of the chest. Contusion versus cellulitis are in the differential. Clinical correlation with any traumatic injury suggested. 5. Osteopenia without acute fracture. This document has been electronically signed by: Enrrique Bergeron MD on 12/29/2024 00:09:37
--- NOTE | ~2024-12-28 | CT_ITS ---
CLINICAL HISTORY: cva CT Brain without contrast Comparison: MR - MR HEAD/BRAIN WO CON - 08/14/24 20:[address]/SR - CT HEAD/BRAIN WO IV CON - 08/13/24 21:49 EDT FINDINGS: Cortical sulci: There is diffuse prominence of the cortical sulci compatible with age-related atrophy. Ventricles: Normal for age Brain parenchyma: There is patchy lucency throughout the deep white matter indicating chronic microvascular leukomalacia. Small lacunar infarct of the left basal ganglia. Extra axial spaces: Normal Posterior Fossa: Normal Extracranial soft tissues: Normal Additional abnormality: Status post intubation. IMPRESSION: Age-related atrophy with chronic microvascular leukomalacia. Small lacunar infarct of the left basal ganglia. No hemorrhage, mass effect, or acute findings identified. This document has been electronically signed by: Panda Ivy MD on 12/28/2024 17:43:29
--- NOTE | ~2024-12-28 | CT_ITS ---
CLINICAL HISTORY: Bleed post TNK CT abdomen and pelvis with contrast Comparison: CT/SR - CT ABDOMEN PELVIS WO IV CON - 04/02/24 13:53 EST Findings: Please refer to the patient's separately dictated CT of the chest for findings within the lower thorax. CT abdomen: Bones are osteopenic. No acute compression fractures identified. Unchanged height loss along the superior endplate of the L3 vertebral body. No focal hepatic lesions. Main portal vein is patent. Small hypodensity within the posterior spleen measures 8 mm in size, unchanged compared to prior study. Similar 6 mm lesion seen in the anterior spleen. These are unchanged compared to prior study and likely related to small cysts or hemangiomas. Pancreas is atrophic without discrete pancreatic lesion. Gallbladder is mildly distended without calcified gallstone. Adrenal glands are unremarkable. There is contrast within the renal collecting systems bilaterally. There are bilateral parapelvic cysts including a 15 mm cortical cyst within the right kidney. No perinephric stranding. Moderate fluid distention of the stomach. No dilated small bowel. No free fluid or free air. CT pelvis: Moderate stool throughout the colon, especially within the distal sigmoid colon and rectum. Rectal stool ball measures 5 cm in round diameter. No colonic wall thickening or pericolonic inflammatory stranding. No findings of appendicitis. No free fluid or free air. Urinary bladder is decompressed with Lima catheter in place. There is hyperdense contrast within the urinary bladder. Right common femoral central venous catheter has tip within a small branch of the right common iliac vein. IMPRESSION: 1. No acute hemorrhage identified. 2. Moderate stool throughout the colon with stool ball within the rectum. No findings of obstruction. This document has been electronically signed by: Enrrique Bergeron MD on 12/28/2024 23:43:27
[2024-12-28] MEDS: diazePAM 10 MG/2 ML CARTRIDGE 5 MG IVPUSH (15:28)
--- NOTE | 2024-12-28 15:34 | ED_ITS ---
HPI - General Adult General Chief complaint: Seizure Stated complaint: n/v, sz 2 mins, postical Time Seen by Provider: 12/28/24 15:24 Source: patient Mode of arrival: ambulatory Limitations: altered mental status History of Present Illness ED Provider: Dr. Stern HPI narrative: 89-year-old female history of seizure on 25 mg of lamotrigine b.i.d., hypertension hyperlipidemia, recurrent UTI, TIAs, COPD, obesity presented hospital today for evaluation of seizure-like activity. Patient was found to be postictal by EMS. Did have a witnessed seizure there however patient is self aborted. Patient was brought to the ER. Was having active generalized tonic-clonic seizure. Related Data Home Medications ?Medication ?Instructions ?Recorded ?Confirmed acetaminophen 500 mg tablet 1,000 mg PO Q6H PRN Pain 1 04/03/19 12/20/24 (Tylenol Extra Strength) cholecalciferol (vitamin D3) 50 50 mcg PO DAILY 12/20/24 mcg (2,000 unit) tablet (Vitamin D3) cyanocobalamin (vitamin B-12) 1,000 mcg PO MO 12/22/23 12/20/24 1,000 mcg tablet (Vitamin B-12) mirtazapine 7.5 mg tablet 7.5 mg PO BEDTIME PRN Sleep 12/22/23 12/20/24 fluticasone propionate 50 1 spray intranasal DAILY PRN 06/07/24 12/20/24 mcg/actuation nasal Allergy Symptoms spray,suspension solifenacin 5 mg tablet 5 mg PO DAILY 08/13/2412/20 Previous Rx's ?Medication ?Instructions ?Recorded BATH AND SHOWER STEP WITH HANDLE #1 ea 04/10/23 EASY RISE WALKER #1 ea 04/10/23 PAIN RELIEVING PATCHES WITH HEAT #60 ea 04/29/23 Contour plus bladder pads #3 ea 08/06/23 Pad liners for bed and chair #6 ea 08/06/23 gloves #1 ea 08/06/23 gloves #1 ea 08/06/23 underwear pull ups 3 per day #6 ea 08/06/23 flushable toilet wipes #5 ea 09/17/23 reclining lift chair. #1 ea 02/03/24 aspirin 81 mg tablet,delayed 81 mg PO DAILY #90 tabs 1 05/13/23 release Disposable liner/shield/pad #312 ea 08/11/24 hydrocortisone 2.5 % topical cream 1 appl [place] DAILY #10 grams 08/18/24 with perineal applicator (Proctozone-HC) HOSPITAL BED #1 ea 08/30/24 pravastatin 20 mg tablet 20 mg PO DAILY #90 tabs 09/22 04/17 albuterol sulfate 90 mcg/actuation 1 inh inhalation QI D PRN shortness 10/19/24 aerosol inhaler of breath or wheezing #8.5 g lore losartan 25 mg tablet 25 mg PO DAILY #30 tabs 10/22 Disposable liners/shield/[id number] #312 ea 11/08/24 lamotrigine 25 mg tablet 25 mg PO BID #180 tabs 12/01 omeprazole 20 mg capsule,delayed 20 mg PO DAILY@0630 # 90 caps 12/05/24 release ProCare Adult Washcloth, 12 x 8 , #7 ea 12/14/24 soft pack diaper,brief,adult,disposable #11 ea 12/14/24 (Prevail Protective Underwear) disposable gloves (Nitrile Exam #6 ea 12/14/24 Gloves) foam bandage 4 X 4 #5 ea 12/14/24 incontinence pad, liner, disp #6 ea 12/14/24 (Prevail Panty Liner pads) nystatin 100,000 unit/gram topical 1 appl topical YONI Y PRN Fungal 12/14/24 powder Infection 30 days #30 grams underpads 30 X 36 #3 ea 12/14/24 estradiol 0.01% (0.1 mg/gram) 1 g vaginal TUTH #42.5 g lore 12/16/24 vaginal cream sulfamethoxazole 200 5 ml PO 3XW 30 days #65 mL 0 12/20/24 mg-trimethoprim 40 mg/5 mL oral suspension sulfamethoxazole 800 1 tab PO BID #14 tabs mg-trimethoprim 160 mg tablet (Bactrim DS) Allergies Allergy/AdvReac Type Severity Reaction Status Date / Time lisinopril Allergy Unknown cough Verified 12/28/24 15:44 Amlodipine AdvReac Intermediate Leg Uncoded 12/28/24 15:44 swelling Review of Systems 2 Review of Systems: Unable to obtain due to active seizure [facility] Past Medical History [facility] Narrative: Medical history as mentioned in HPI Medical History Recurrent UTI Altered mental status Acute encephalopathy Bilateral arm pain Osteoarthritis of knees, bilateral TIA (transient ischemic attack) Seizure disorder Knee osteoarthritis Urinary incontinence GERD (gastroesophageal reflux disease) COPD (chronic obstructive pulmonary disease) Obesity (BMI 30-39.9) Hypertension UTI (urinary tract infection) Hypertriglyceridemia Impaired glucose tolerance Vitamin D deficiency Surgical History H/O oophorectomy History of abdominal hysterectomy History of bilateral cataract extraction H/O left wrist surgery Family History Family History Father No problems noted. Mother Past heart attack Sister Diabetes Brother Prostate cancer Social History Social History (Updated 12/20/24 @ 14:58 by JAKE Sullivan) Household Members: Family and Children Household Members Other:: Daughter, son-in-law Housing: House Do you presently have visiting nurse or other home services: Yes (PT finished last Fri, VNA after recent hospitalization) Alcohol intake: never Comment: [phone] Patient Tobacco Use Status: Never used Tobacco Tobacco use type: Cigarette e-Cigarette/Vaping Use: Never Used Second Hand Smoke Exposure: No Advance Directives: Yes Advance Directives on File: Yes Advance Directives Date on File: 12/23/23 Do you have a plan to hurt others: No Plan service: No Current occupational status: retired Current occupation: right hand dominant Cognitive needs: Yes (cane, walker) Hearing needs: No Vision needs: Yes (glasses) Physical Exam ED Exam Exam: General: It actively seizing, unresponsive Head: Normacephalic, atraumatic ENT: oral mucosa moist, neck supple, no tracheal deviation Cardiovascular: Tachycardic rate, regular rhythm, no murmurs, rubbing, gallops Respiratory: Diffuse rhonchi Gastrointestinal: Soft, non distended, non tender, non guarding Extremities: No limb pain or swelling, no calf tenderness Neurological: Actively seizing at this time Skin: Warm and dry Vital Signs: Vital Signs - 24 hr 12/28/24 15:44 12/28/24 15:53 12/28/24 15:57 Temperature Pulse Rate 111 H 25 L Respiratory Rate 18 107 H Blood Pressure 130/68 126/46 L Pulse Oximetry 95 64 L 96 Oxygen Delivery Method Nasal Cannula Nasal Cannula Nasal Cannula Oxygen Flow Rate 4 4 Fraction of Inspired Oxygen 12/28/24 16:01 12/28/24 16:09 12/28/24 16:13 Temperature Pulse Rate 123 H 130 H 121 H Respiratory Rate 13 20 24 H Blood Pressure 108/50 L 105/51 L 99/50 L Pulse Oximetry 95 95 98 Oxygen Delivery Method Mechanical Ventilation Mechanical Ventilation Oxygen Flow Rate Fraction of Inspired Oxygen 12/28/24 16:15 12/28/24 16:15 12/28/24 16:30 Temperature Pulse Rate 24 L 117 H Respiratory Rate 130 H 24 H Blood Pressure 103/58 L 100/58 L Pulse Oximetry 98 97 Oxygen Delivery Method Mechanical Ventilation Mechanical Ventilation Oxygen Flow Rate Fraction of Inspired Oxygen 50 12/28/24 16:40 12/28/24 16:44 12/28/24 16:51 Temperature Pulse Rate 99 104 H 109 H Respiratory Rate 107 H 24 H 24 H Blood Pressure 113/65 124/70 141/81 H Pulse Oximetry 99 100 100 Oxygen Delivery Method Mechanical Ventilation Nasal Cannula Oxygen Flow Rate Fraction of Inspired Oxygen 12/28/24 16:59 12/28/24 17:07 12/28/24 17:16 Temperature Pulse Rate 107 H 102 H 101 H Respiratory Rate 16 24 H 24 H Blood Pressure 150/82 H 153/78 H 138/79 Pulse Oximetry 100 100 100 Oxygen Delivery Method Mechanical Ventilation Mechanical Ventilation Mechanical Ventilation Oxygen Flow Rate Fraction of Inspired Oxygen 12/28/24 17:45 12/28/24 17:46 12/28/24 17:58 Temperature Pulse Rate 100 109 H Respiratory Rate 21 H 21 H Blood Pressure 169/87 H 176/89 H Pulse Oximetry 99 98 Oxygen Delivery Method Mechanical Ventilation Mechanical Ventilation Oxygen Flow Rate Fraction of Inspired Oxygen 30 12/28/24 18:05 12/28/24 18:07 12/28/24 18:10 Temperature Pulse Rate 111 H 100 98 Respiratory Rate 24 H 22 H 22 H Blood Pressure 171/87 H 168/92 H 167/87 H Pulse Oximetry 96 97 96 Oxygen Delivery Method Mechanical Ventilation Mechanical Ventilation Mechanical Ventilation Oxygen Flow Rate Fraction of Inspired Oxygen 12/28/24 18:15 12/28/24 18:22 12/28/24 18:29 Temperature Pulse Rate 96 95 97 Respiratory Rate 22 H 22 H 28 H Blood Pressure 170/93 H 165/83 H 169/81 H Pulse Oximetry 96 96 95 Oxygen Delivery Method Mechanical Ventilation Mechanical Ventilation Mechanical Ventilation Oxygen Flow Rate Fraction of Inspired Oxygen 12/28/24 18:34 12/28/24 18:38 12/28/24 18:43 Temperature 97.5 F Pulse Rate 97 96 94 Respiratory Rate 22 H 26 H 23 H Blood Pressure 157/86 H 156/87 H 152/81 H Pulse Oximetry 95 95 95 Oxygen Delivery Method Mechanical Ventilation Room Air Mechanical Ventilation Oxygen Flow Rate Fraction of Inspired Oxygen 12/28/24 18:51 12/28/24 19:00 12/28/24 19:00 Temperature 98.6 F Pulse Rate 88 83 Respiratory Rate 21 H 24 H 20 Blood Pressure 151/74 H 141/69 H 146/72 H Pulse Oximetry 96 96 98 Oxygen Delivery Method Mechanical Ventilation Mechanical Ventilation Mechanical Ventilation Oxygen Flow Rate Fraction of Inspired Oxygen 30 12/28/24 19:07 12/28/24 19:16 12/28/24 19:59 Temperature 98.8 F Pulse Rate 96 83 83 Respiratory Rate 23 H 20 22 H Blood Pressure 133/68 130/68 147/70 H Pulse Oximetry 96 96 98 Oxygen Delivery Method Mechanical Ventilation Mechanical Ventilation Mechanical Ventilation Oxygen Flow Rate Fraction of Inspired Oxygen 30 12/28/24 20:00 12/28/24 20:59 12/28/24 20:59 Temperature Pulse Rate 78 78 Respiratory Rate 20 20 Blood Pressure 129/61 129/61 Pulse Oximetry Oxygen Delivery Method Oxygen Flow Rate Fraction of Inspired Oxygen 30 BMI result Body Mass Index 30.3 NIH Stroke Scale Internal: Other (Unable to assess as the patient is actively seizing upon arrival. ) Time: 17:48 Level of Consciousness: Not Alert; requires repeated stimulation, or strong of painful stim. Level of Consciousness Questions: Answers neither question correctly Level of Consciousness Commands: Performs neither task correctly Best Gaze: Partial gaze palsy Medications Administered Generic Name Dose Route Start Last Admin Trade Name Freq PRN Reason Stop Dose Admin Propofol 1,000 mg in 100 mls @ 0 mls/hr 12/28/24 16:00 12/28/24 20:59 Diprivan IVCONT 30 mcg/kg/min .Q0M MILIND 16.27 mls/hr Protocol Administration Per Protocol Fentanyl 1,000 mcg in 100 mls @ 0 mls/hr 12/28/24 16:00 12/28/24 16:44 Sublimaze/Ns IVCONT 25 mcg/hr .Q0M MILIND 2.5 mls/hr Protocol Administration Per Protocol Discontinued Medications Generic Name Dose Route Start Last Admin Trade Name Raphael PRN Reason Stop Dose Admin Diazepam 5 mg 12/28/24 15:23 12/28/24 15:28 Diazepam 10 Mg/2 Ml Cartridge IVPUSH 12/28/24 15:24 5 mg STAT STA Administration Levetiracetam 4,500 mg/ Sodium 145 mls @ 480 mls/hr 12/28/24 15:27 12/28/24 17:19 Chloride IV 12/28/24 15:45 Infused ONCE ONE Infusion Lactated Ringer's 1,000 mls @ 999 mls/hr 12/28/24 16:15 12/28/24 17:18 Lr IV 12/28/24 17:15 Infused .Q1H1M MILIND Infusion Piperacillin Sod/Tazobactam 100 mls @ 200 mls/hr 12/28/24 16:13 12/28/24 16:59 Sod 4.5 gm/ Sodium Chloride IV 12/28/24 16:42 Infused ONCE ONE Infusion Vancomycin HCl 2,000 mg in 500 mls @ 250 mls/hr 12/28/24 16:13 12/28/24 18:30 Vancomycin/Ns IV 12/28/24 18:12 Infused ONCE ONE Infusion Lactated Ringer's 1,000 mls @ 999 mls/hr 12/28/24 18:30 12/28/24 19:30 Lr IV 12/28/24 19:30 Infused .Q1H1M MILIND Infusion Iohexol 100 ml 12/28/24 17:38 12/28/24 17:38 Iohexol 350 Mg/Ml 100 Ml Infus..Btl IV 12/28/24 17:39 70 ml ONCE ONE Administration Midazolam HCl 5 mg 12/28/24 15:47 12/28/24 15:47 Midazolam Hcl 5 Mg/Ml Vial IVPUSH 12/28/24 15:48 5 mg ONCE ONE Administration Propofol 100 mg 12/28/24 15:51 12/28/24 15:57 Propofol 200 Mg/20 Ml Vial IVPUSH 12/28/24 15:52 100 mg ONCE ONE Administration Propofol 100 mg 12/28/24 16:07 12/28/24 16:17 Propofol 200 Mg/20 Ml Vial IVPUSH 12/28/24 16:08 Not Given ONCE ONE Rocuronium Marion 100 mg 12/28/24 15:51 12/28/24 15:57 Rocuronium Marion 50 Mg/5 Ml Vial IVPUSH 12/28/24 15:52 100 mg ONCE ONE Administration Rocuronium Marion 100 mg 12/28/24 16:07 12/28/24 16:17 Rocuronium Marion 50 Mg/5 Ml Vial IVPUSH 12/28/24 16:08 Not Given ONCE ONE Tenecteplase 23 mg 12/28/24 17:45 12/28/24 17:54 Tenecteplase 50 Mg/10 Ml Kit IVPUSH 12/28/24 17:46 23 mg ONCE ONE Administration Medical Decision Making Medical Decision Making [facility] Narrative: This is a 89-year-old female history of TIAs in the past hypertension hyperlipidemia diabetes presented hospital today for evaluation of seizure-like activity Patient was given 5 mg IV Valium for the 1st seizure patient's began to seize again. We gave another dose of IV Versed to the patient. Loading dose of Keppra 4500 mg IV. Patient became hypoxic and appears to be agonal breathing after second dose of benzodiazepine. A decision was made to intubate the patient at this time due to status epilepticus. Patient was intubated. Central line was placed in the right groin. Patient will be placed on propofol and fentanyl drip for sedation. Blood pressure remained stable at this time. We will plan to cover patient for possible sepsis secondary to UTI. Lima catheter will be placed. Vancomycin and Zosyn will be initiated for the patient. Discussed with patient's family. Daughter noted that patient was having left facial droop and right-sided weakness and speech difficulty before her seizure activity. Last known well time is 1330 today. She is very concerned that patient may be having a stroke and enquiring about TNK at this time. I did activate stroke protocol for the patient to obtain dry CT head and CTA head and neck. Stat INR will be obtained. I discussed the case with the neurologist Dr. Albarran on-call about TPA candidacy. Due to her seizure-like activity he does not recommend tPA. I discuss this further with the family. I provided Extensive counseling with patient's daughter. They would like to tPA patient understands the risk of tPA including brain bleed, a coagulopathy, and adverse side effects. I discussed with them that there was a large risk involved in regards to the tPA. They understand the risk. They would like to pursue this tPA at this time. CT head is negative for bleed. INR is 0.9. She has no absolute contraindication. TNK will be given. Review patient's lab work. Leukocytosis 19.0. Patient does have elevated lactic acid at 15.6. Patient's VBG shows pH is 7.0. Likely secondary to her seizure activity. Vent setting was increased in respiratory rate to help blow off CO2. Patient's UA that was sent off shows signs of UTI. I think patient is likely septic from UTI. We obtained a VBG. Patient's pH corrected to 7.4. PCO2 21. PO2 of 197. No further signs of seizure. Patient is hemodynamically stable on the ventilator. Antibiotic given vancomycin and Zosyn for possible sepsis. Patient is noted to have elevated lactic acid and leukocytosis. She does have a UTI as well. CTA of the head and neck did not show any signs of LVO. CT dry scan did not show any signs of intracranial bleed. Discussed the case with the ICU team at [facility]. They will plan to accept the transfer. Patient will be transferred to [facility] for continuous EEG and ICU level of care. Accepting doctor. Dr. Diallo Differential Diagnosis Differential Diagnoses: The differential diagnosis associated with the presentation includes Status epilepticus, sepsis, respiratory failure, respiratory acidosis, UTI Consult Healthcare Provider Management of the patient was discussed with: Rotary Cutter Operator (ICU [facility], Dr. Albarran (Neurologist)) Lab Data MDM Lab Attestation statement: I reviewed the patient's lab results. 12/28/24 15:34 12/28/24 15:34 Labs: Lab Results 12/28/24 12/28/24 12/28/24 Range/Units 15:34 15:50 16:59 WBC 19.0 H (4.8-10.8) X10*3/uL RBC 4.76 (4.20-5.50) X10*6/uL Hgb 14.5 (12.0-16.0) g/dl Hct 45.2 (37.0-47.0) % MCV 95.0 (80.0-98.0) fL MCH 30.5 (27.0-33.0) pg MCHC 32.1 (31.0-35.0) g/dl RDW 13.2 (11.0-16.0) % Plt Count 321 D (160-400) X10*3/uL MPV 9.5 (9.4-12.3) fL Immature Gran % (Auto) 0.7 H (0.0-0.4) % Neut % (Auto) 29.6 L (45-73) % Lymph % (Auto) 61.8 H (20-40) % Emmons % (Auto) 6.7 (2-11) % Eos % (Auto) 0.8 (0-4) % Baso % (Auto) 0.4 (0-2) % Lymph # (Auto) 11.7 H (1.2-4.9) X10*3/uL Emmons # (Auto) 1.3 H (0.1-1.2) X10*3/uL Eos # (Auto) 0.2 (0.0-0.4) X10*3/uL Baso # (Auto) 0.1 (0.0-0.2) X10*3/uL Abs Immat Gran (auto) 0.13 H (0.00-0.03) X10*3/uL Absolute Neuts (auto) 5.6 (2.0-8.3) x10*3/uL Absolute Nucleated RBC 0.000 (0.0-0.012) X10*3/uL Nucleated RBC % (auto) 0.0 (0.0-0.2) /100WBC Smear Tech's Comments VERIFIED Whole Blood PT (11.1-13.5) sec Whole Blood INR (0.9-1.1) VBG pH 7.01 L* (7.32-7.43) VBG pCO2 44 mmHg VBG pO2 90 mmHg VBG HCO3 11 L (22-26) mmol/L VBG O2 Saturation 90.0 % VBG Base Excess -19.1 mmol/L Sodium 146 H (135-145) mmol/L Potassium 3.6 (3.3-5.1) mmol/L Chloride 109 H (96-108) mmol/L Carbon Dioxide 14 L (22-29) mmol/L Anion Gap 27 H (12-20) BUN 22 H (9-16) mg/dL Creatinine 1.12 (0.5-1.4) mg/dL Estim Creat Clear Calc 41.6 Estimated GFR 46 Random Glucose 149 H (60-115) mg/dL Lactic Acid 15.6 H* (0.5-2.0) mmol/L Lactic Acid F/U @ 2Hr (0.5-2.0) mmol/L Calcium 9.7 (8.4-10.2) mg/dL Magnesium 2.1 (1.6-2.6) mg/dL Total Bilirubin 0.4 (0.0-1.0) mg/dL AST 37 H (5-31) U/L ALT 20 (0-31) U/L Alkaline Phosphatase 88 (39-117) U/L Total Protein 7.7 (6.5-8.0) g/dL Albumin 4.4 (3.5-5.0) g/dL Urine Color Yellow Urine Appearance Cloudy Urine pH 6.5 (5.0-9.0) Ur Specific [place] 1.020 (1.005-1.025) Urine Protein 300 (3+) H (Neg-Trace) mg/dL Urine Glucose (UA) Negative (Negative) mg/dL Urine Ketones Trace (Negative) mg/dL Urine Blood Moderate (2+) H (Negative) Urine Nitrite Negative (Negative) Ur Leukocyte Esterase Moderate (2+) H (Negative) Urine RBC >20 H (0-2) /HPF Urine WBC >50 H (0-5) /HPF Ur Squamous Epith Cells 3-5 (0-2) /HPF Urine Bacteria 4+ (None Seen) Hyaline Casts 11-20 (0-2) /LPF 12/28/24 12/28/24 Range/Units 17:50 20:24 WBC (4.8-10.8) X10*3/uL RBC (4.20-5.50) X10*6/uL Hgb (12.0-16.0) g/dl Hct (37.0-47.0) % MCV (80.0-98.0) fL MCH (27.0-33.0) pg MCHC (31.0-35.0) g/dl RDW (11.0-16.0) % Plt Count (160-400) X10*3/uL MPV (9.4-12.3) fL Immature Gran % (Auto) (0.0-0.4) % Neut % (Auto) (45-73) % Lymph % (Auto) (20-40) % Emmons % (Auto) (2-11) % Eos % (Auto) (0-4) % Baso % (Auto) (0-2) % Lymph # (Auto) (1.2-4.9) X10*3/uL Emmons # (Auto) (0.1-1.2) X10*3/uL Eos # (Auto) (0.0-0.4) X10*3/uL Baso # (Auto) (0.0-0.2) X10*3/uL Abs Immat Gran (auto) (0.00-0.03) X10*3/uL Absolute Neuts (auto) (2.0-8.3) x10*3/uL Absolute Nucleated RBC (0.0-0.012) X10*3/uL Nucleated RBC % (auto) (0.0-0.2) /100WBC Smear Tech's Comments Whole Blood PT 11.2 (11.1-13.5) sec Whole Blood INR 0.9 (0.9-1.1) VBG pH (7.32-7.43) VBG pCO2 mmHg VBG pO2 mmHg VBG HCO3 (22-26) mmol/L VBG O2 Saturation % VBG Base Excess mmol/L Sodium (135-145) mmol/L Potassium (3.3-5.1) mmol/L Chloride (96-108) mmol/L Carbon Dioxide (22-29) mmol/L Anion Gap (12-20) BUN (9-16) mg/dL Creatinine (0.5-1.4) mg/dL Estim Creat Clear Calc Estimated GFR Random Glucose (60-115) mg/dL Lactic Acid (0.5-2.0) mmol/L Lactic Acid F/U @ 2Hr 2.1 H* (0.5-2.0) mmol/L Calcium (8.4-10.2) mg/dL Magnesium (1.6-2.6) mg/dL Total Bilirubin (0.0-1.0) mg/dL AST (5-31) U/L ALT (0-31) U/L Alkaline Phosphatase (39-117) U/L Total Protein (6.5-8.0) g/dL Albumin (3.5-5.0) g/dL Urine Color Urine Appearance Urine pH (5.0-9.0) Ur Specific [place] (1.005-1.025) Urine Protein (Neg-Trace) mg/dL Urine Glucose (UA) (Negative) mg/dL Urine Ketones (Negative) mg/dL Urine Blood (Negative) Urine Nitrite (Negative) Ur Leukocyte Esterase (Negative) Urine RBC (0-2) /HPF Urine WBC (0-5) /HPF Ur Squamous Epith Cells (0-2) /HPF Urine Bacteria (None Seen) Hyaline Casts (0-2) /LPF ABG Data Attestation ABG: I personally reviewed and interpreted this ABG as follows: Interpretation: Correction of respiratory acidosis Independent Interpretation I performed an independent interpretation of an: EKG, Plain X-Ray and CT Scan Radiology Impression Discussion of test interpretation with radiology: I have reviewed the radiologist's reading. Critical Care Time Critical Care Time Critical Care Time: Yes Total Critical Care Time: 80 Attestation: Time is exclusive of separately billable procedures. Time includes: direct patient care, patient reassessment, coordination of patient care, interpretation of data (laboratory data, pulse oximetry, arterial blood gases and chest xrays), review of patient's medical records, medical consultation and documentation of patient care. Procedures excluded from critical care time: central intravenous line placement and electrocardiography. Discharge Plan Discharge Clinical Impression: Status epilepticus, Acidosis, lactic, Acute UTI Respiratory failure Qualifiers: Chronicity: acute Respiratory failure complication: hypoxia Qualified Code(s): J96.01 - Acute respiratory failure with hypoxia Sepsis Qualifiers: Sepsis type: sepsis due to unspecified organism Sepsis acute organ dysfunction status: unspecified Qualified Code(s): A41.9 - Sepsis, unspecified organism Patient Disposition: [facility] Transfer Details: [facility] ICU (Dr. Diallo) Prescriptions: No Action (DME) PAIN RELIEVING PATCHES WITH HEAT See Rx Instructions .Route .MEDSUPPLY Qty: 60 12RF Rx Instructions: As directed (DME) gloves medium See Rx Instructions .Route .MEDSUPPLY Qty: 1 12RF Rx Instructions: As directed (DME) Contour plus bladder pads See Rx Instructions .Route .MEDSUPPLY Qty: 3 12RF Rx Instructions: As directed (DME) gloves large See Rx Instructions .Route .MEDSUPPLY Qty: 1 12RF Rx Instructions: As directed (DME) underwear pull ups 3 per day XL See Rx Instructions .Route .MEDSUPPLY Qty: 6 12RF Rx Instructions: As directed (DME) Pad liners for bed and chair See Rx Instructions .Route .MEDSUPPLY Qty: 6 12RF Rx Instructions: As directed (DME) flushable toilet wipes See Rx Instructions .Route .MEDSUPPLY Qty: 5 12RF Rx Instructions: As directed (DME) reclining lift chair. See Rx Instructions .Route .MEDSUPPLY Qty: 1 0RF Rx Instructions: As directed aspirin 81 mg tablet,delayed release (DR/EC) 81 mg PO DAILY Qty: 90 3RF (DME) Disposable liner/shield/pad See Rx Instructions .Route .MEDSUPPLY Qty: 312 12RF Rx Instructions: As directed pravastatin 20 mg tablet 20 mg PO DAILY Qty: 90 2RF albuterol sulfate 90 mcg/actuation HFA aerosol inhaler 1 inh inhalation QID PRN (Reason: shortness of breath or wheezing) Qty: 8.5 0RF losartan 25 mg tablet 25 mg PO DAILY Qty: 30 1RF (DME) Disposable liners/shield/[id number] See Rx Instructions .Route .MEDSUPPLY Qty: 312 12RF Rx Instructions: BÁRBARA 99 As directed omeprazole 20 mg capsule,delayed release(DR/EC) 20 mg PO DAILY@0630 Qty: 90 2RF estradiol 0.01 % (0.1 mg/gram) cream 1 g vaginal TUTH Qty: 42.5 0RF mirtazapine 7.5 mg tablet 7.5 mg PO BEDTIME PRN (Reason: Sleep) cyanocobalamin (vitamin B-12) [Vitamin B-12] 1,000 mcg Tablet 1,000 mcg PO MO cholecalciferol (vitamin D3) [Vitamin D3] 50 mcg (2,000 unit) Tablet 50 mcg PO DAILY fluticasone propionate 50 mcg/actuation spray,suspension 1 spray intranasal DAILY PRN (Reason: Allergy Symptoms) solifenacin 5 mg tablet 5 mg PO DAILY hydrocortisone [Proctozone-HC] 2.5 % Cream With Perineal Applicator 1 appl WI DAILY Qty: 10 0RF acetaminophen [Tylenol Extra Strength] 500 mg tablet 1,000 mg PO Q6H PRN (Reason: Pain) (DME) EASY RISE WALKER See Rx Instructions .Route .MEDSUPPLY Qty: 1 0RF Rx Instructions: As directed ([facility]) BATH AND SHOWER STEP WITH HANDLE See Rx Instructions .Route .MEDSUPPLY Qty: 1 0RF Rx Instructions: As directed ([facility]) disposable gloves [Nitrile Exam Gloves] Misc See Rx Instructions .Route Qty: 6 6RF Rx Instructions: As directed, 6 boxes per month Item number: [id number] ([facility]) foam bandage 4 X 4 bandage See Rx Instructions .Route Qty: 5 6RF Rx Instructions: As directed up to 6 monthly ([facility]) underpads 30 X 36 pad See Rx Instructions .Route Qty: 3 6RF Rx Instructions: As directed, 3 packs per month Item number: [id number] ([facility]) Prevail Panty Liner Pad See Rx Instructions .Route Qty: 6 6RF Rx Instructions: As directed Small 6 x 12.5 Item number: [id number] packs of 52 per month ([facility]) Prevail Protective Underwear Misc See Rx Instructions .Route Qty: 11 6RF Rx Instructions: As directed size 2X-Large 68 -80 Item number: [id number] packs of 12 each per month ([facility]) ProCare Adult Washcloth, 12 x 8 , soft pack See Rx Instructions .Route .MEDSUPPLY Qty: 7 6RF Rx Instructions: As directed 7 packs of 50 per month Item number: [id number] nystatin 100,000 unit/gram powder 1 appl topical DAILY PRN (Reason: Fungal Infection) 30 Days Qty: 30 3RF Rx Instructions: Apply to affected area lamotrigine 25 mg tablet 25 mg PO BID Qty: 180 1RF ([facility] See Rx Instructions .Route .MEDSUPPLY Qty: 1 0RF Rx Instructions: As directed sulfamethoxazole-trimethoprim 200-40 mg/5 mL suspension 5 ml PO 3XW 30 Days Qty: 65 1RF sulfamethoxazole-trimethoprim [Bactrim DS] 800-160 mg tablet 1 tab PO BID Qty: 14 0RF Print Language: Vietnamese
--- NOTE | 2024-12-28 15:34 | PC.NURSE ---
pt biba from home after family reports increased lethargy throughout the aftenoon. upon BLS arrival - pt noted to have 2 minute long witnessed seizure. paramedics then called on scene. pt noted to be post-ictal upon [facility]ps letter carrier arrival w/o any trauma/incontinence s/p event. pt seemingly post ictal but able to maintain airway w/o difficulty via EMS transport. no medications administered via EMS. upon EMS arrival, when transferring pt from EMS stretcher to ED stretcher, pt noted to be having tonic-clonic seizure activity. MD called bedside - 5mg valium administered via IV w/ good effect. 20gIV placed in the right forearm - labs obtained/sent to lab. ekg performed by tech. pt remained w/ adequate SPO2 during seizure requiring 4L via NC. tachycardic. otherwise vss and up to date. daughter bedside for support. plan of care ongoing.
[2024-12-28 15:53] LABS: Hematocrit 45.2 % (37.0-47.0); Hemoglobin 14.5 g/dl (12.0-16.0); Imm Gran Abs Auto 0.13 X10*3/uL (0.00-0.03); Imm Gran Pct Auto 0.7 % (0.0-0.4); MANUAL DIFF FLAG SCAN; Mean Corpuscular HGB Conc 32.1 g/dl (31.0-35.0); Mean Corpuscular Hemoglobin 30.5 pg (27.0-33.0); Mean Corpuscular Volume 95.0 fL (80.0-98.0); NRBC Abs Auto 0.000 X10*3/uL (0.0-0.012); NRBC Pct Auto 0.0 /100WBC (0.0-0.2); Platelet Count 321 X10*3/uL (160-400); Red Blood Count 4.76 X10*6/uL (4.20-5.50); SCAN SMEAR FLAG 1; White Blood Count 19.0 X10*3/uL (4.8-10.8)
[2024-12-28 15:54] LABS: Lymphocytes Absolute Auto 11.7 X10*3/uL (1.2-4.9)
[2024-12-28 16:01] LABS: VBG HCO3 11 mmol/L (22-26); VBG O2 % Saturation 90.0 %
[2024-12-28 16:01] LABS: Venous Blood Gas Refer to POC result
[2024-12-28] MEDS: Lactated Ringers 1,000 ML 999 ML IV ×2 (16:17→18:27)
[2024-12-28 16:19] LABS: Alanine Aminotransferase 20 U/L (0-31); Albumin Level 4.4 g/dL (3.5-5.0); Alkaline Phosphatase 88 U/L (39-117); Anion Gap 27 (12-20); Aspartate Amino Transferase 37 U/L (5-31); Blood Urea Nitrogen 22 mg/dL (9-16); Calcium 9.7 mg/dL (8.4-10.2); Carbon Dioxide 14 mmol/L (22-29); Chloride 109 mmol/L (96-108); Creatinine Clr Calc Pharmacy 41.6; Estimated Glomerular Filt Rate 46; Magnesium 2.1 mg/dL (1.6-2.6); Potassium 3.6 mmol/L (3.3-5.1); Sodium 146 mmol/L (135-145); Total Protein 7.7 g/dL (6.5-8.0)
[2024-12-28] MEDS: vancomycin/NS 2,000 MG/500 ML PLAST..BAG 250 MG IV (16:29)
[2024-12-28] MEDS: fentaNYL citrate/NS 1,000 MCG/100 ML PLAST..BAG 2.5 MCG IVCONT (16:44)
--- NOTE | 2024-12-28 16:44 | PC.NURSE ---
pt noted to have another witnessed tonic-clonic seizure requiring additional 5mg versed w/ no good effect. pt unable to maintain proper airway - desatting to 64% on 4L via NC. pt placed on 15L via nonrebreather w/ good effect. MD/RT bedside - decision made to intubate. RSI kit pulled - pt intubated @ 1557 w/ 10mg of propofol and 100mg of rocuronium. @ 1559 pt intubated w/ 7.5 ETT and 23 @ the lip w/ +color change/+breath sounds. placement confirmed w/ CXR. pt started on propofol gtt/fentanyl gtt for maintenance. see MAR for titrations per protocol. aside from being intubated/sedated, vss and up to date. 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 pending CT scans to be completed at this time. plan of care ongoing.
--- NOTE | 2024-12-28 17:05 | PC.NURSE ---
20cm central line placed to right groin by MD - +blood return. 16fr temp sensing juares placed - 100ml of foul, dark yellow urine noted immediately post output. urine specimen obtained/sent to lab.
--- NOTE | 2024-12-28 17:07 | PC.NURSE ---
delay in loading dose keppra administration d/t medication not being readily available in [facility]. medication administered per provider order. IVF/abx/propofol gtt/fentanyl gtt infusing per provider order. see MAR for titrations/per protocol. pt otherwise remains intubated/sedated. vital signs otherwise stable up to date. pending ABG results via RT. plan of care ongoing.
[2024-12-28 17:25] LABS: Appearance Urine Cloudy; Glucose Urine UA Negative (Negative); PH 6.5 (5.0-9.0); Specific Gravity - Urine 1.020 (1.005-1.025); UMIC TRIGGER UA YES
[2024-12-28] MEDS: iohexoL 350 MG/ML 100 ML INFUS..BTL IV (17:38)
[2024-12-28 17:49] LABS: Reflex Lactate? Lactic Acid Added
[2024-12-28 17:54] LABS: Prothrombin Time Whole Bld POC 11.2 sec (11.1-13.5); ~PT, ~INR - Anti Coag Clinic 0.9 (0.9-1.1)
--- NOTE | 2024-12-28 17:58 | PC.NURSE ---
stroke protocol initiated by . pt transferred/accompanied to CT by this RN as well as RT. pt remained stable throughout transfer. upon returning, INR obtained via tech. per MD, TNK administered per provider order. pt currently remains sedated/intubated. vss and up to date. nsr on the cardiac tech. pending official CT results/transfer to ICU at another facility. plan of care ongoing.
--- NOTE | 2024-12-28 18:07 | PC.NURSE ---
update provided to patient in family room. family remains bedside w/ pt for support.
--- NOTE | 2024-12-28 18:30 | PC.NURSE ---
family member ([employer]) bedside - took dentures and rings home. t-shirt thrown away per [employer]en[employer] approval. no other personal belongings remain w/ pt at this time.
--- OUTSIDE RECORDS SUMMARY | 2024-12-28 19:00 | XMS_ITS | Clinical Summary ---
Author Organization [employer] Address [address] [place] [address] Care Team Providers Care Director Chemistry Name Role Phone Unavailable Primary Care Provider Unavailabl e Encounters Date Type Department Care Team Description 12/14/2024 3:55 PM EDT Immunization [facility] [address] [place] [address] Cecelia Howard RN Encounter for immunization from Last 3 Months Immunizations Immunization Administration Dates Next Due Influenza, High Dose Seasonal, Preservative Free 12/14/2024 Influenza, seasonal, injectable, preservative fr ee 12/10/2023 [...] - Tdap) 03/03/2019 03/02/2019 COVID-19 Vaccine ( - season) 2024 02/25/2021, 05/23/2020, 05/02/2020 Pneumococcal Vaccine: 50+ Years Completed 12/17/2021, 07/10/2015 Influenza Vaccine Completed 12/14/2024, , 01/06/2023, Additional history exists HIB Vaccines Aged Out [...] patient's age to complete this topic Insurance [facility] [employer] (O D-SNP) [place] [id number]
--- OUTSIDE RECORDS SUMMARY | 2024-12-28 19:00 | XMS_ITS | Clinical Summary ---
Author Organization [facility] Address [address] [place] [phone] Phone Care Team Providers Care Qa Tester Name Role Phone Unavailable Primary Care [...] Devices Not on file Insurance [facility] [place] MEDICARE REPLACEMENT [place] [id number] MEDICARE REPLACEMENT MEDICARE REPLACEMENT MEDICARE REPLACEMENT [facility] [employer] [facility] MEDICARE REPLACEMENT [facility] MEDIC[facility] REPLACEMENT Additional Source Comments The information contained in this document represents components of the legal health record. It is not the complete legal health record.[facility]
--- NOTE | 2024-12-28 20:15 | MHC.EDTECH ---
Tried two times to get a lactic with no success
[2024-12-28 20:58] LABS: ~Lactic Acid-LAB USE ONLY 2.1 mmol/L (0.5-2.0)
[2024-12-28 22:28] LABS: Reflex Lactate? 2 Y
[2024-12-28] MEDS: iohexoL 350 MG/ML 100 ML INFUS..BTL 75 ML IV (22:43)
--- NOTE | 2024-12-28 23:32 | PC.NURSE ---
RN called report to Margot from [facility] Surgical ICU. Patient was intubated and sedated and transported by EMS. While in the Emergency Department the patients urine gradually went from clear yellow to pink tinged, to punch colored. Her sputum was dark brown/possibly mixed blood. Her blood pressures were dropping with a map of 65 when her systolic was in the 130's to 140's at start of shift at 1900. Patient was taken to CT scan to ensure she wasnt developing a brain bleed. Upon return from CT scan, her pressure was back in the 130's systolic and EMS placed her on their vent and she was safetly transported out of the hospital. Her daughter Cecelia was informed of her transfer and of her current status.
[2025-01-04 12:22] LABS: ABG HCO3 15 mmol/L (22-26); ABG O2 % Saturation 100.0 %
== END 2024-12-28 23:29 | disposition short-term general hospital (02) ==
PROVIDERS: Student in an Organized Health Care Education/Training Program; Emergency Provider Student in an Organized Health Care Education/Training Program
DX: J96.01 Acute respiratory failure with hypoxia (principal); G40.901 Epilepsy, unspecified, not intractable, with status epilepticus; A41.9 Sepsis, unspecified organism; E87.20 Acidosis, unspecified; N39.0 Urinary tract infection, site not specified; I45.10 Unspecified right bundle-branch block; I95.9 Hypotension, unspecified; R10.22 Pelvic and perineal pain left side; R00.0 Tachycardia, unspecified; Z79.899 Other long term (current) drug therapy; Z86.73 Personal history of transient ischemic attack (TIA), and cerebral infarction without residual deficits
CPT/HCPCS: 31500; 36415; 70450; 70496; 70498; 71045; 71260; 74177; 80053; 81001; 82803; 83605; 83735; 85025; 85610; 87040; 87086; 93005; 94002; 96365; 96366; 96375; 99284; 99291; 99292; J1953; J2250; J2543; J2704; J3010; J3101; J3360; J3373; J7120; Q9967

== ENCOUNTER → 2024-12-28 15:29 | Outpatient (BNV) | payer OTHER, SELFPAY | PROVIDERS: Emergency Provider Student in an Organized Health Care Education/Training Program; Visit Provider Internal Medicine Cardiovascular Disease | DX: I49.3 Ventricular premature depolarization (principal); I49.1 Atrial premature depolarization; I45.10 Unspecified right bundle-branch block; R00.0 Tachycardia, unspecified | CPT/HCPCS: 93010 ==

== ENCOUNTER → 2024-12-28 15:29 | Outpatient (BNV) | payer OTHER, SELFPAY | PROVIDERS: Emergency Provider Student in an Organized Health Care Education/Training Program; Visit Provider Radiology Diagnostic Radiology | DX: T45.615A Adverse effect of thrombolytic drugs, initial encounter (principal); J81.0 Acute pulmonary edema; M31.8 Other specified necrotizing vasculopathies; M85.80 Other specified disorders of bone density and structure, unspecified site; R90.82 White matter disease, unspecified; Y65.3 Endotracheal tube wrongly placed during anesthetic procedure | CPT/HCPCS: 70450; 71260; 74177 ==

== ENCOUNTER 2025-01-31 13:09 | Outpatient (AMB) | payer OTHER, SELFPAY ==
--- NOTE | 2025-01-31 13:38 | MHC.PC.OV ---
Vital Signs 01/31/25 13:39 Height 5 ft 4 in Weight 201 lb 8.04 oz BMI 34.6 BP 128/82 Blood Pressure Location Lt brachial Position Sitting Pulse 78 Pulse Source Pulse Oximeter Temp 97.1 F Temp Source Temporal Artery Scan Pulse Oximetry (%) 96 Oxygen Delivery Method Room Air Intake Visit Reasons: [facility] 01/06 seizure/uti Accompanied by: Daughter Allergies lisinopril Allergy (Unknown, Verified 01/31/25 13:43) cough Amlodipine Adverse Reaction (Intermediate, Uncoded 01/31/25 13:43) Leg swelling Tobacco use date assessed: 01/31/25 Fall risk assessment: No Falls in past year Last assessed Fall Risk: 01/31/25 Dental Screening Dental Screen Date: 01/31/25 Did you have a dental visit in the last 12 months?: Yes Did you have a dental problem in the last 6 months where you did not have access to dental care?: No Was dental information given to patient?: Patient has dentist HPI HPI Comments History of Present Illness Details Patient is an 89-year-old female with medical history remarkable for hypertension, hyperlipidemia, vascular dementia, prior TIA, seizure-like episodes in the setting of UTIs, GERD, COPD and recurrent UTIs who is presenting today for transition of care. Patient was admitted to [facility] from 12/30/24 - 01/06/25 for status epilepticus for which she received IV midazolam and Keppra loading dose of 4.5 g and was intubated. Patient was also found to have a UTI for which he received 3 days' course of IV antibiotics. CT head showed no acute intracranial process. EEG revealed no seizure activity just generalized EEG slowing during ICU admission. Neurology consulted and increased her lamotrigine to 50 mg b.i.d. (was previously on 25 mg b.i.d.). Patient has been getting PT therapy at home since discharge. Today is the 1st day that patient leaves home since that admission. Today, patient denies any recurrent seizure episodes. She continues on the lamotrigine 50 mg b.i.d.. Denies any UTI symptoms. Per daughter, patient was previously on Bactrim daily as UTI prophylaxis, recently switched to methenamine by patient's urologist. Patient reports bilateral shoulder pain. She has a known osteoarthritis, for which she is receiving steroid injections. However, pain has worsened since previous hospital admission, and does not improve. [facility] Medical History Recurrent UTI Altered mental status Acute encephalopathy Bilateral arm pain Osteoarthritis of knees, bilateral TIA (transient ischemic attack) Seizure disorder Knee osteoarthritis Urinary incontinence GERD (gastroesophageal reflux disease) COPD (chronic obstructive pulmonary disease) Obesity (BMI 30-39.9) Hypertension UTI (urinary tract infection) Hypertriglyceridemia Impaired glucose tolerance Vitamin D deficiency Surgical History H/O oophorectomy History of abdominal hysterectomy History of bilateral cataract extraction H/O left wrist surgery Family History Father No problems noted. Mother Past heart attack Sister Diabetes Brother Prostate cancer Social History Household Members: Family and Children Household Members Other:: Daughter, son-in-law Housing: House Do you presently have visiting nurse or other home services: Yes (PT finished last Fri, [facility] after recent hospitalization) Alcohol intake: never Comment: 262 Patient Tobacco Use Status: Never used Tobacco Tobacco use type: Cigarette e-Cigarette/Vaping Use: Never Used Second Hand Smoke Exposure: No Advance Directives Date on File: 12/23/23 service: No Current occupational status: retired Current occupation: right hand dominant Cognitive needs: Yes (cane, walker) Hearing needs: No Vision needs: Yes (glasses) Questionnaire PHQ-9 Over the last 2 weeks, how often have you been bothered by any of the following problems? 1. Little interest or pleasure in doing things: not at all 2. Feeling down, depressed, or hopeless: not at all 3. Trouble falling or staying asleep, or sleeping too much: not at all 4. Feeling tired or having little energy: not at all 5. Poor appetite or overeating: not at all 6. Feeling bad about yourself - or that you are a failure or have let yourself or your family down: not at all 7. Trouble concentrating on things, such as reading the newspaper or watching television: not at all 8. Moving or speaking so slowly that other people could have noticed. Or the opposite - being so fidgety or restless that you have been moving around a lot more than usual: not at all 9. Thoughts that you would be better off or of hurting yourself in some way: not at all Total score: 0 Depression Screening Interpretation: Negative Depression Screening Done: Yes Source: Developed by Drs. Gabriel Jiménez, Krupa Paez, Jesus Quintana and colleagues, with an educational akila from [employer]. Thrive Questionnaire Date Thrive assessed: 08/14/24 I am a: Patient What is your living situation today?: I have a steady place to live Within the past 12 months, did the food you bought not last and you didn't have the money to get more?: Never true Within the past 12 months, did you worry whether your food would run out before you got money to buy more?: Never true Do you have trouble paying for medicines?: No Do you have trouble getting transportation to medical appointments?: No Do you have trouble paying your heating and electricity bill?: No Do you have trouble taking care of your child, family member or friend?: No Do you have trouble with day-to-day activities such as bathing, preparing meals, shopping, managing finances, etc.?: No Are you currently unemployed and looking for a job?: No Are you interested in more education?: No Please select the resources that you would like help with: None Currently or been in a relationship where the following occur: No concerns reported THRIVE Score: 0 AUDIT C Alcohol Use Questionnaire (AUDIT-C) 1. How often do you have a drink containing alcohol?: Never 3. How often do you have six or more drinks on one occasion?: Never Total Score: 0 RUBINA-7 AMB Questionnaire RUBINA-7 Date RUBINA - 7 assessed: 05/04/24 Feeling nervous, anxious, or on edge: 0 = Not at all Not being able to stop or control worryin = Not at all Worrying too much about different things: 0 = Not at all Trouble relaxin = Not at all Being so restless that it is hard to sit still: 0 = Not at all Becoming easily annoyed or irritable: 0 = Not at all Feeling afraid as if something awful might happen: 0 = Not at all Total RUBINA-7 score (0-4 normal; 5-9 mild; 10-14 moderate; 15-21 severe): 0 Source: Developed by Drs. Gabriel Jiménez, Krupa Paez, Jesus Quintana and colleagues, with an educational akila from [employer]. Physical exam (Primary Care) Vital Signs: Last Vital Signs Temp 97.1 F 01/31/25 13:39 Pulse 78 01/31/25 13:39 BP 128/82 01/31/25 13:39 Pulse Ox 96 01/31/25 13:39 Oxygen Delivery Method Room Air 01/31/25 13:39 General: Well-appearing, alert, oriented ?3, in no acute distress. Cardiovascular: RRR, S1-S2 appreciated, no murmurs, rubs or gallops. Respiratory: Lungs clear to auscultation bilaterally, no wheezes, rales or rhonchi. Abdomen: Soft, nontender, nondistended. Normoactive bowel sounds. BMI result Body Mass Index 34.6 Tobacco/Smoking Status: Tobacco use Status Tobacco use date assessed 01/31/25 01/31/25 13:46 Patient Tobacco Use Status Never used Tobacco 01/31/25 13:38 Tobacco use type Cigarette 01/31/25 13:38 e-Cigarette/Vaping Use Never Used 01/31/25 13:38 PHQ-9: PHQ-9 Score PHQ-9: Total score 0 01/31/25 14:05 Depression Screening Interpretation: Negative Thrive Assessment: Date of Thrive Assessment Date Thrive assessed 08/14/24 01/31/25 13:38 Currently or been in a relationship where the following occur: No concerns reported Coding Level of Care Code Est Pt Level 4 (94119) Diagnoses History of UTI Z87.440 Bilateral shoulder pain M25.511; M25.512 Seizure disorder G40.909 Assessment & Plan Assessment & Plan (1) History of UTI: Code(s): Z87.440 - Personal history of urinary (tract) infections Plan: Repeat urinalysis (2) Bilateral shoulder pain: Code(s): M25.511 - Pain in right shoulder; M25.512 - Pain in left shoulder Category: Medical Plan: PT referral placed (3) Seizure disorder: Comment: MRI brain at [facility] in July 2024: No change EEG at [facility] in May 2024: Left temp sharps CSF analysis at [facility] in May 2024: WBCs 10, RBCs 2, Glu 66, Pro 33, encephalitis panel neg MRI brain WO at [facility] in May 2024: Mod MVD MRI brain WO at [facility] in 2019: mod MVD CT brain WO at [facility] in 2014: mod MVD EEG at office in Oct 2019: WNL Code(s): G40.909 - Epilepsy, unspecified, not intractable, without status epilepticus Category: Medical Plan: Patient with history of seizure disorder, was on lamotrigine 25 mg b.i.d. that was increased to 50 mg b.i.d. during recent admission at [facility] for status epilepticus requiring intubation. -continue on lamotrigine 50 mg b.i.d. -follow up with neurologist as scheduled Orders: Orders UA CC w/rflx Micro + Cult Today N39.0 - Urinary tract infection, site not specified PT Evaluation and Treatment 1 Month M25.511 - Pain in right shoulder, M25.512 - Pain in left shoulder Medications: New sennosides (senna) 8.6 mg PO BEDTIME PRN 60 tabs 0RF constipation
[2025-01-31 13:39] VITALS: BP 128/82; PULSE 78; TEMP 36.2; O2SAT 96; BMI 34.6
--- OUTSIDE RECORDS SUMMARY | 2025-01-31 15:19 | XMS_ITS | Clinical Summary ---
Author Organization [facility] Address [address] [place] [id number] Phone Care Team Providers Care Hull Molder Name Role Phone Unavailable Primary Care Provider [...] file Medical Devices Not on file Insurance [facility] CARE ALLIANCE [place] MEDICARE REPLACEMENT [place] [id number] MEDICARE REPLACEMENT MEDICARE REPLACEMENT MEDICARE REPLACEMENT WEALTH CARE ALLIANCE [employer]CO MEDICARE REPLACEMENT [facility] MEDICARE REPLACEMENT Additional Source Comments The information contained in this document represents components of the legal health record. It is not the complete legal health record.[facility]
--- OUTSIDE RECORDS SUMMARY | 2025-01-31 15:19 | XMS_ITS | Clinical Summary ---
Author Organization [employer] Address [address] [facility] [address] [place] [address] Care Team Providers Care Associate Software Developer Name Role Phone Unavailable Primary Care Provider Unavailabl e Encounters Date Type Department Care Team Description 12/14/2024 3:55 PM EDT Immunization [facility] [address] [place] [address] Cecelia Howard RN Encounter for immunization from [...] patient's age to complete this topic Insurance [facility] LONG-TERM OPTIONS (O D-SNP) [place] [id number]
--- OUTSIDE RECORDS SUMMARY | 2025-01-31 15:19 | XMS_ITS | Data Portability ---
Author Organization [employer] [facility] [place] [employer] [facility] Address [address] [place] [address] Care Team Providers Care Director Regulatory Agency Name Role Phone HIM CCA OTHER Assessment [...] Diagnosis SNOMED-CT Code Diagnosis ICD10 Code Diagnosis IMO Codes Diagnosis Note [id number] Arun Houston MD [address] [phone] 08/13/2024 18:28:50 08/14/2024 14:01:31 Cerebrovascular accident [id number] I63.9 [id number] Health Concerns Section Related Observation LastModified by Organization Detai ls LastModified Time None Recorded Concern Status LastModified by Organization Details LastModified Time None Recorded Advance Directives Directive None Recorded Payers Insurance Date Sequence Insurance Name Policy Number Policy Schroeder Covered Member ID Schroeder Member ID Guarantor Name 12/28/2024 1 [facility] - DOS ON OR AFTER 2022 - DUAL ELIGIBLE - NURSING HOME OPTIONS AND ONE CARE (MEDICARE REPLACEMENT/AD VANTAGE - HMO) Nisreen Avery [id number] Nisreen Avery Notes Date Note Type Note Provider Name and Address Organization Details Recorded Time 08/13/2024 text/html CRC Nurse Triage Notes (Gorge Gallego): Reason For Request: Possible UTI Chief Complaints: Urinary Symptoms PMH: Urinary Tract Infections (UTI), Hypertension PMH Reviewed at 08/13/2024 - 17:46 Allergies Reviewed at 08/13/2024 - 17:46 Comments: [...] ................... ................... ................... ................... ................... ................... ........ Special Assemblies Supervisor Note From Bang Neves: Was dispatched for a 88 Y/O female with a possible UTI. UOA PT family reported they noticed she wasn't acting normal since she came home at 3pm today with slurred speech and weakness. PT was found sitting in a chair. PT did appear to be in distress. 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 [facility] was contacted and informed of the PT symptoms and recommended 911 to be contacted, [facility] agreed with findings. 911 was contacted, [facility] arrived on scene and agreed with the findings, and transported PT to [facility] for a possible stroke. [facility] cleared ................... ................... ................... ................... ................... ................... ................... ........ [facility] Consulted: Arun Houston ................... ................... ................... ................... ................... ................... ................... ........ Disposition: Fulfilled Arun Houston MD [address] [place] [address],[address] [facility], [place], [address], PABLO - [employer]JAVIER BHAGAT 08/13/2024 21:41:50 OBGyn Episode No OBEpisode recorded.
== END 2025-01-31 14:28 | disposition home or self-care (01) ==
LOC: HO.HMCH 13:10
PROVIDERS: Visit Provider Student in an Organized Health Care Education/Training Program
DX: Z87.440 Personal history of urinary (tract) infections (principal); M25.511 Pain in right shoulder; M25.512 Pain in left shoulder; G40.909 Epilepsy, unspecified, not intractable, without status epilepticus

== ENCOUNTER → 2025-01-31 13:09 | Outpatient (BNVA) | payer OTHER, SELFPAY | PROVIDERS: Visit Provider Student in an Organized Health Care Education/Training Program | DX: F01.A18 Vascular dementia, mild, with other behavioral disturbance (principal); G40.909 Epilepsy, unspecified, not intractable, without status epilepticus; M25.511 Pain in right shoulder; M25.512 Pain in left shoulder; Z87.440 Personal history of urinary (tract) infections | CPT/HCPCS: 96127; 99212 ==

== ENCOUNTER 2025-01-31 14:51 | Outpatient (AMB) | payer OTHER, SELFPAY ==
--- NOTE | 2025-01-31 14:52 | A.OFFVIS_ITS ---
Vital Signs 01/31/25 15:06 Height 5 ft 4 in BP 128/74 Blood Pressure Location Rt brachial Position Sitting Respiration 16 Pulse 75 Pulse Source Pulse Oximeter Pulse Oximetry (%) 97 Oxygen Delivery Method Room Air Intake Visit Reasons: Follow up after hospital visit Mason Tender Required: No Accompanied by: Daughter Allergies lisinopril Allergy (Unknown, Verified 01/31/25 13:43) cough Amlodipine Adverse Reaction (Intermediate, Uncoded 01/31/25 13:43) Leg swelling HPI Comments Details: Nisreen is an 89-year-old male patient past medical history of recurrent UTIs, osteoarthritis of the knees, seizure disorder, vascular dementia, COPD, obesity, hypertension, and impaired glucose tolerance who is here today for a follow-up regarding her seizures. She was seen last by Dr. Albarran on 12/01/2024 at which time he documents that in May of 2024 she has been admitted to [facility] for confusion with an elevated temperature. MRI at that time did not reveal any new lesions, CSF protein was normal with 10 WBCs, an EEG revealed left temporal sharps. She has been treated for encephalitis with levetiracetam. Unfortunately, after this she developed behavioral side effects and it was stopped. In November of 2024, she reported some mood stabilization concerns in the setting of dementia and seizure disorder and therefore she was placed on lamotrigine 25 mg twice daily for both seizure and mood benefit. Since her visit with Dr. Albarran in November, she did go back to the emergency department in early December at which time she did have a seizure in the setting of a urinary tract infection. Her lamotrigine at that time was increased from 25 mg twice daily to 50 mg twice daily. Since discharge from the hospital, she has been taking the lamotrigine 50 mg twice daily as prescribed. Her daughter however notes that she has had some increasing lethargy and possibly some decrease in her cognition since starting the higher dose of lamotrigine. Her balance may also be slightly affected however she has not had any recent falls. [facility] Medical History Recurrent UTI Altered mental status Acute encephalopathy Bilateral arm pain Osteoarthritis of knees, bilateral TIA (transient ischemic attack) Seizure disorder Knee osteoarthritis Urinary incontinence GERD (gastroesophageal reflux disease) COPD (chronic obstructive pulmonary disease) Obesity (BMI 30-39.9) Hypertension UTI (urinary tract infection) Hypertriglyceridemia Impaired glucose tolerance Vitamin D deficiency Surgical History H/O oophorectomy History of abdominal hysterectomy History of bilateral cataract extraction H/O left wrist surgery Family History Father No problems noted. Mother Past heart attack Sister Diabetes Brother Prostate cancer Social History Household Members: Family and Children Household Members Other:: Daughter, son-in-law Housing: House Do you presently have visiting nurse or other home services: Yes (PT finished last Fri, [facility] after recent hospitalization) Alcohol intake: never Comment: 262 Patient Tobacco Use Status: Never used Tobacco Tobacco use type: Cigarette e-Cigarette/Vaping Use: Never Used Second Hand Smoke Exposure: No Advance Directives Date on File: 12/23/23 service: No Current occupational status: retired Current occupation: right hand dominant Cognitive needs: Yes (cane, walker) Hearing needs: No Vision needs: Yes (glasses) Review of Systems Const All systems reviewed & are unremarkable except as noted in HPI and below Physical Exam Vital Signs: Last Vital Signs Pulse 75 01/31/25 15:06 Resp 16 01/31/25 15:06 BP 128/74 01/31/25 15:06 Pulse Ox 97 01/31/25 15:06 Oxygen Delivery Method Room Air 01/31/25 15:06 Const General: cooperative, healthy appearing, comfortable and no acute distress Nutritional Appearance: well nourished Orientation/consciousness: oriented to person and oriented to place Neuro General: oriented to person and oriented to place Cranial nerves: Yes CN's II-XII intact bilaterally Cognition (Neuro): abnormal cognition Gait exam (Neuro): Other gait observations present (Wheelchair today) Motor exam (neuro): no tremor noted Pupils: Normal pupillary reactivity/response: bilateral Psych Appearance: grossly normal Speech and movement: Normal speech and movement present Attitude: cooperative Insight: Limited insight present (Psych) Judgement: Limited judgement present (Psych) Assessment & Plan Assessment & Plan (1) Vascular dementia: Code(s): F01.50 - Vascular dementia, unspecified severity, without behavioral disturbance, psychotic disturbance, mood disturbance, and anxiety Category: Medical Qualifiers: Dementia severity: mild Dementia behavioral or psychological symptom: with other behavioral disturbance Qualified Code(s): F01.A18 - Vascular dementia, mild, with other behavioral disturbance (2) Seizure disorder: Comment: [place] [facility] [place]: No change EEG [place] [facility] [place]: Left temp sharps CSF analysis at [facility] [place] May 2024: WBCs 10, RBCs 2, Glu 66, Pro 33, encephalitis panel neg MRI brain WO [place] [facility] [place] May 2024: Mod MVD MRI brain WO [place] [facility] in [place]: mod MVD CT brain WO [place] [facility] [place]: mod MVD EEG at office in Oct 2019: WNL Code(s): G40.909 - Epilepsy, unspecified, not intractable, without status epilepticus Category: Medical Plan Nisreen is an 89-year-old male patient past medical history of recurrent UTIs, osteoarthritis of the knees, seizure disorder, vascular dementia, COPD, obesity, hypertension, and impaired glucose tolerance who is here today for a follow-up regarding her seizures. She had a recurrent seizure events in the setting of urinary tract infection in early December while on the 25 twice daily dose of lamotrigine. She was increase to 50 mg twice daily during her emergency room visit and asked to follow up outpatient. She has not had any further seizure activity. While her dosing is still relatively low, she has unfortunately experiencing some side effects including possible decrease in cognition and somnolence. I will switch her formulary from the immediate release to the extended release to see if this helps with side effects. If she tolerates the 100 mg extended release daily at bedtime, we can consider increasing at the time of her next visit. -change lamotrigine from 50mg twice daily to lamotrigine 100 mg extended release daily at bedtime -at next visit, if lamotrigine is better tolerated, could consider increasing dose Medications: New lamotrigine ER 100 mg PO BEDTIME 30 tabs 3RF 30 days Coding Level of Care Code Est Pt Level 4 (58443) Diagnoses Mild vascular dementia with other behavioral disturbance F01.A18 Dementia severity: mild Dementia behavioral or psychological symptom: with other behavioral disturbance Seizure disorder G40.909
[2025-01-31 15:06] VITALS: BP 128/74; PULSE 75; RESP 16; O2SAT 97
== END 2025-01-31 15:40 | disposition home or self-care (01) ==
LOC: HO.HSM 14:51
PROVIDERS: Visit Provider Nurse Practitioner
DX: F01.A18 Vascular dementia, mild, with other behavioral disturbance (principal); G40.909 Epilepsy, unspecified, not intractable, without status epilepticus
CPT/HCPCS: 99214

== ENCOUNTER 2025-02-11 10:45 | Outpatient (REF) | payer OTHER, SELFPAY ==
[2025-02-11 11:08] LABS: Appearance Urine Clear; Glucose Urine UA Negative (Negative); PH 6.5 (5.0-9.0); Specific Gravity - Urine 1.015 (1.005-1.025)
--- OUTSIDE RECORDS SUMMARY | 2025-02-11 11:29 | XMS_ITS | Clinical Summary ---
Author Organization [employer] Address [address] [facility] [address] [place] [address] Care Team Providers Care Can Reforming Machine Operator Name Role Phone Unavailable Primary Care Provider Unavailabl e Encounters Date Type Department Care Team Description 12/14/2024 3:55 PM EDT Immunization [facility] [address] [place] [address] Cecelia Howard RN Encounter for immunization from [...] to complete this topic Insurance [facility] NURSING HOME OPTIONS (O D-SNP) [place] [id number]
--- OUTSIDE RECORDS SUMMARY | 2025-02-11 11:29 | XMS_ITS | Encounter Summary ---
Author Organization [facility] Address [facility] [place] [address] Care Team Providers Care Computer Instructor Name Role Phone Nicola Lebron MD Primary Care Provider Unavailabl e Encounter Details Date Type Department Care Team Description 05/15/2017 Release of Information Medical Records [address] [place] [id number] Abstract, Provider Social History Tobacco Use Types [...] on filedocumented in this encounter Care Teams Computer Instructor Relationship Specialty Start Date End Date Nicola Lebron MD PCP - General Internal Medicine 11/22/14 documented as of this encounter
--- OUTSIDE RECORDS SUMMARY | 2025-02-11 11:29 | XMS_ITS | Clinical Summary ---
Author Organization [facility] Address [address] [place] [address] Phone Care Team Providers Care Pulling Unit Operator Name Role Phone Unavailable Primary Care [...] file Medical Devices Not on file Insurance [facility] CARE ALLIANCE [place]O MEDICARE REPLACEMENT [place] [id number] MEDICARE REPLACEMENT MEDICARE REPLACEMENT MEDICARE REPLACEMENT WE[facility]ARE ALLIANCE [facility] Additional Source Comments The information contained in this document represents components of the legal health record. It is not the complete legal health record.[facility]
--- OUTSIDE RECORDS SUMMARY | 2025-02-11 11:29 | XMS_ITS | Clinical Summary ---
Author Organization [facility] Address [address] [place] [address] Care Team Providers Care Facilities Mechanical Design Engineer Name Role Phone Nicola Lebron MD Primary [...] History Relation Name Comments [place] Prostate Brother [place] Mother arthritis Diabetes Sister Relation Name Status [...] 03/24/2024 INFLUENZA (#1) 2024 12/27/2016 Care Teams Facilities Mechanical Design Engineer Relationship Specialty Start Date End Date Nicola Lebron MD PCP - General Internal Medicine 11/22/14
--- OUTSIDE RECORDS SUMMARY | 2025-02-11 11:29 | XMS_ITS | Data Portability ---
Author Organization [employer] [facility] Address [address] [place] [address] Care Team Providers Care Email Engineer Name Role Phone HIM CCA OTHER Assessment [...] ICD10 Code Diagnosis IMO Codes Diagnosis Note [id number] Arun Houston MD [address] [address] 08/13/2024 18:28:50 08/14/2024 14:01:31 Cerebrovascular accident [id number] I63.9 [id number] Health Concerns Section Related Observation LastModified by Organization Detai ls LastModified Time None Recorded Concern Status LastModified by Organization Details LastModified Time None Recorded Advance Directives Directive None Recorded Payers Insurance Date Sequence Insurance Name Policy Number Policy Schroeder Covered Member ID Schroeder Member ID Guarantor Name 12/28/2024 1 [facility] - DOS ON OR AFTER 2022 - DUAL ELIGIBLE - HALF-WAY OPTIONS AND ONE CARE (MEDICARE REPLACEMENT/AD VANTAGE - HMO) Nisreen Avery [id number] Nisreen Avery Notes Date Note Type Note [...] ................... ................... ................... ................... ................... ................... ........ Rolloff Truck Driver Note From Bang Neves: Was dispatched for a 88 Y/O female with a possible UTI. UOA PT family reported they noticed she wasn't acting normal since she came home at 3pm today with slurred speech and weakness. PT was found sitting in a chair. PT did appear to be in distress. 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 [facility] [place] contacted and informed of the PT symptoms and recommended 911 to be contacted, [facility] agreed with findings. 911 was contacted, [facility] arrived on scene and agreed with the findings, and transported PT to [facility] for a possible stroke. [facility] cleared ................... ................... ................... ................... ................... ................... ................... ........ [facility] Consulted: Arun Houston ................... ................... ................... ................... ................... ................... ................... ........ Disposition: Fulfilled Arun Houston MD [address] [place] [address],[address] [facility], [place], [address], PABLO - Kylin TherapeuticsJAVIER BHAGAT 08/13/2024 21:41:50 OBGyn Episode No OBEpisode recorded.
== END 2025-02-11 10:46 | disposition home or self-care (01) ==
LOC: HO.LNP 10:45
PROVIDERS: Visit Provider Student in an Organized Health Care Education/Training Program
DX: N39.0 Urinary tract infection, site not specified (principal)
CPT/HCPCS: 81003